=== PATIENT | female | born 1980 | race Hispanic/Latino ===

== ENCOUNTER 2017-03-19 17:12 | Observation (INO) | payer MEDICAID ==
[~2017-03-19] VITALS: Ht 147.3 cm; Wt 49.3 kg
[~2017-03-19 17:12] MED LIST: ALPR2TAB7 PO; AMYL1CAP PO; CIPR-245 PO; DOCU100C33 PO; DULO30CA2 PO; FERR-63 PO; FURO40TA5 PO; LEVE500T8 PO; NITR100C PO; OMEP20CA10 PO; POTA20TA12 PO; PREG25 PO; SPIR50TA3 PO; TOPI100T37 PO
[2017-03-19 17:41] LABS: APPEARANCE,URINE Turbid (CLEAR); BILIRUBIN,URINE Negative (NEGATIVE); COLOR,URINE Yellow (YELLOW); GLUCOSE, URINE (UA) Negative (NEGATIVE); KETONES,URINE Negative (NEGATIVE); LEUKOCYTE ESTERASE ,URINE Negative (NEGATIVE); NITRATE,URINE Negative (NEGATIVE); OCCULT BLOOD,URINE Negative (NEGATIVE); PH,URINE >=9.0 (5.0-8.0); PROTEIN,URINE Negative (NEGATIVE)
[2017-03-19 17:56] LABS: HCG,QUAL RESULT NEGATIVE (NEGATIVE)
[2017-03-19 18:03] LABS: AMPHET/METH SCREEN,URINE NEGATIVE (NEGATIVE); BARBITURATE SCREEN, URINE NEGATIVE (NEGATIVE); BENZODIAZEPINES SCREEN,URINE POSITIVE (NEGATIVE); CANNABINOID SCREEN,URINE NEGATIVE (NEGATIVE); COCAINE SCREEN,URINE NEGATIVE (NEGATIVE); OPIATE SCREEN,URINE NEGATIVE (NEGATIVE); PHENCYCLIDINE SCREEN,URINE NEGATIVE (NEGATIVE)
[2017-03-19 18:11] LABS: AMORPHOUS SEDIMENT,UR Moderate /LPF (None Seen); BACTERIA,URINE Few /HPF (None Seen); RBC,URINE None Seen /HPF (0-1); SQUAMOUS EPITHELIAL CELL,UR 0-2 /LPF (0-2)
[2017-03-19 18:12] LABS: BASOPHILS % (AUTO) 1.1 % (0.0-5.0); EOSINOPHILS % (AUTO) 1.1 % (0.0-8.0); HEMATOCRIT 32.1 % (36-48); LYMPHOCYTES % (AUTO) 25.5 % (21.0-51.0); MEAN CORPUSCULAR HEMOGLOBIN 25.6 pg (27.0-33.0); MEAN CORPUSCULAR VOLUME 79.9 fL (79-99); NEUTROPHILS % (AUTO) 65.3 % (40.0-77.0); PLATELET COUNT (AUTO) 342 K/uL (130-400); RED BLOOD CELL COUNT(AUTO) 4.01 MIL/uL (4.00-5.50); RED CELL DISTRIBUTION WIDTH 23.9 % (11.0-15.5); WHITE BLOOD COUNT (AUTO) 5.5 K/uL (4.8-10.8)
[2017-03-19 18:21] LABS: CREATININE 0.8 mg/dL (0.5-1.5); POTASSIUM 4.1 mmol/L (3.5-5.1)
[2017-03-19 18:26] LABS: ALBUMIN 3.7 g/dL (3.5-5.0); BILIRUBIN,TOTAL 0.3 mg/dL (0.2-1.0); TOTAL PROTEIN, SERUM 7.3 g/dL (6.0-8.3)
[2017-03-19] MEDS ORDERED: KETOROLAC TROMETHAMINE 30MG/ML ONE (19:45)
[2017-03-19] MEDS ORDERED: ONDANSETRON HCL 4 MG/2 ML VIAL ONE (19:45)
[2017-03-19 20:51] VITALS: BP 134/97
[2017-03-19] MEDS ORDERED: MORPHINE SULFATE 4 MG/1ML SYG ONE (22:59)
[2017-03-19] MEDS: SODIUM CHLORIDE 0.9% 1000ML 1,000 ML IV SCH (23:09)
[2017-03-19] MEDS ORDERED: POTASSIUM CHLORIDE 20 MEQ ERTAB PO PRN (23:15)
[2017-03-19] MEDS ORDERED: POTASSIUM CHLORIDE 10% ELIXIR 20 MEQ/15 ML UDCUP PO PRN (23:15)
[2017-03-19] MEDS ORDERED: PHARMACY COMMUNICATION MISC SCH (23:15)
[2017-03-19] MEDS ORDERED: ONDANSETRON HCL 4 MG/2 ML VIAL IV PRN (23:15)
[2017-03-19] MEDS ORDERED: MORPHINE SULFATE 4 MG/1ML SYG IV PRN (23:15)
[2017-03-19] MEDS ORDERED: POTASSIUM CHLORIDE 20MEQ/100ML 100 ML IV PRN (23:15)
[2017-03-19] MEDS ORDERED: LIDOCAINE HCL-MPF 1% 2ML VIAL IVP PRN (23:15)
[2017-03-19] MEDS ORDERED: HYDRALAZINE HCL 20 MG/ML VIAL IV PRN (23:15)
[2017-03-19] MEDS ORDERED: SODIUM CHLORIDE 0.9% 1000ML 1,000 ML IV ONE (23:18)
[2017-03-19 23:23] VITALS: BP 149/98
[2017-03-20] MEDS ORDERED: PROMETHAZINE HCL 25 MG/ML 1ML AMPULE IM ONE (02:14)
[2017-03-20] MEDS: PROMETHAZINE HCL 25 MG/ML 1ML AMPULE IM SCH (02:20)
[2017-03-20] MEDS: KETOROLAC TROMETHAMINE 30MG/ML IV PRN (02:21)
[2017-03-20 03:40] VITALS: BP 128/93
[2017-03-20] MEDS: MORPHINE SULFATE 4 MG/1ML SYG IV PRN ×5 (05:01→22:55)
[2017-03-20 06:38] LABS: CREATININE 0.8 mg/dL (0.5-1.5); POTASSIUM 3.8 mmol/L (3.5-5.1)
[2017-03-20] MEDS ORDERED: COMPOUND IV MISC 1 EACH IVSOLN MISC PRN (07:30)
[2017-03-20 08:00] VITALS: BP 123/83
[2017-03-20] MEDS: FAMOTIDINE/PF 20 MG/2 ML VIAL IV SCH ×2 (08:28→20:27)
[2017-03-20] MEDS: SODIUM CHLORIDE 0.9% 1000ML 1,000 ML IV SCH ×2 (08:35→19:09)
[2017-03-20 12:00] VITALS: BP 124/84
[2017-03-20] MEDS: LEVETIRACETAM 200 MG in SODIUM CHLORIDE 0.9% 100 ML IV SCH ×2 (12:22→20:26)
[2017-03-20] MEDS ORDERED: DOCUSATE SODIUM 100 MG CAP PO PRN (12:30)
[2017-03-20 16:00] VITALS: BP 118/86
[2017-03-20] MEDS: FERROUS SULFATE 325 MG TABLET.DR PO SCH (16:39)
[2017-03-20] MEDS ORDERED: PNEUMOCOCCAL VACCINE POLYVALENT 0.5 ML/VIAL [PPV] IM ONE (18:15)
[2017-03-20 19:00] VITALS: BP 126/91
[2017-03-20] MEDS: ALPRAZOLAM 1 MG TAB PO SCH (20:27)
[2017-03-20] MEDS ORDERED: TOPIRAMATE 100 MG TAB PO SCH (21:00)
[2017-03-20] MEDS ORDERED: ALPRAZOLAM 1 MG TAB PO SCH (21:00)
[2017-03-20] MEDS ORDERED: LEVETIRACETAM 500 MG TABLET PO SCH (21:00)
[2017-03-20 23:00] VITALS: BP 102/70
[2017-03-21] MEDS: PROMETHAZINE HCL 25 MG/ML 1ML AMPULE IM SCH (01:30)
[2017-03-21] MEDS: MORPHINE SULFATE 4 MG/1ML SYG IV PRN ×2 (02:49→08:44)
[2017-03-21 03:00] VITALS: BP 98/57
[2017-03-21 05:40] VITALS: BP 87/63
[2017-03-21] MEDS: SODIUM CHLORIDE 0.9% 1000ML 1,000 ML IV SCH ×2 (06:11→08:44)
[2017-03-21] MEDS: KETOROLAC TROMETHAMINE 30MG/ML IV PRN (06:14)
[2017-03-21 07:00] VITALS: BP 92/69
[2017-03-21] MEDS ORDERED: PANTOPRAZOLE SODIUM 40 MG TABLET.DR PO SCH (07:30)
[2017-03-21] MEDS: FERROUS SULFATE 325 MG TABLET.DR PO SCH (08:43)
[2017-03-21] MEDS: FAMOTIDINE/PF 20 MG/2 ML VIAL IV SCH (08:43)
[2017-03-21] MEDS: ALPRAZOLAM 1 MG TAB PO SCH (08:44)
[2017-03-21] MEDS ORDERED: AMYLASE PO SCH (09:00)
[2017-03-21] MEDS ORDERED: FUROSEMIDE 40 MG TABLET PO SCH (09:00)
[2017-03-21] MEDS ORDERED: POTASSIUM CHLORIDE 20 MEQ ERTAB PO SCH (09:00)
[2017-03-21] MEDS ORDERED: PROTEASE PO SCH (09:00)
[2017-03-21] MEDS ORDERED: LIPASE PO SCH (09:00)
[2017-03-21] MEDS: LEVETIRACETAM 200 MG in SODIUM CHLORIDE 0.9% 100 ML IV SCH (09:07)
[2017-03-21 10:52] VITALS: BP 99/64
[2017-03-21] MEDS ORDERED: MORPHINE SULFATE 2 MG/ML 1ML SYG IVP PRN (11:30)
== END 2017-03-21 14:20 | disposition home or self-care (01) ==
LOC: EDH 17:12 → 3CH 17:13
PROVIDERS: ADMIT Family Medicine; ATTEND Family Medicine
DX: K85.90 Acute pancreatitis without necrosis or infection, unspecified (principal); K86.1 Other chronic pancreatitis; G89.4 Chronic pain syndrome; G40.909 Epilepsy, unspecified, not intractable, without status epilepticus; Q05.9 Spina bifida, unspecified; N31.9 Neuromuscular dysfunction of bladder, unspecified; Z88.0 Allergy status to penicillin; Z88.8 Allergy status to other drugs, medicaments and biological substances
CPT/HCPCS: 36415 ×2; 80048; 80053; 80177; 80305; 81001; 81025; 82150 ×2; 83690 ×2; 85025; 87046; 87205; 87324; 96361 ×2; 96372; 96374; 96375; 96376 ×2; 99285; G0378 ×45; J1885 ×3; J1953 ×2; J2270 ×8; J2405 ×2; J2550; J3490 ×3; J7030 ×4

== ENCOUNTER 2017-05-08 23:04 | Emergency (ER) | payer MEDICAID ==
[2017-05-08] MEDS ORDERED: SODIUM CHLORIDE 0.9% 500ML 500 ML IV ONE (23:56)
[2017-05-08] MEDS ORDERED: ONDANSETRON HCL 4 MG/2 ML VIAL ONE (23:56)
[2017-05-08] MEDS ORDERED: IOPAMIDOL-370 75 ML VIAL IV ONE (23:59)
[2017-05-09 00:05] LABS: EOSINOPHILS % (AUTO) 4.2 % (0.0-8.0); HEMATOCRIT 29.5 % (36-48); LYMPHOCYTES % (AUTO) 30.2 % (21.0-51.0); MEAN CORPUSCULAR HEMOGLOBIN 26.4 pg (27.0-33.0); MEAN CORPUSCULAR HGB CONC 32.6 g/dL (32.0-36.0); MEAN CORPUSCULAR VOLUME 81.1 fL (79-99); MONOCYTES % (AUTO) 7.7 % (3.0-13.0); NEUTROPHILS % (AUTO) 56.9 % (40.0-77.0); PLATELET COUNT (AUTO) 235 K/uL (130-400); RED BLOOD CELL COUNT(AUTO) 3.63 MIL/uL (4.00-5.50); RED CELL DISTRIBUTION WIDTH 17.8 % (11.0-15.5); WHITE BLOOD COUNT (AUTO) 6.4 K/uL (4.8-10.8)
[2017-05-09 00:16] LABS: APPEARANCE,URINE Clear (CLEAR); BILIRUBIN,URINE Negative (NEGATIVE); COLOR,URINE Yellow (YELLOW); GLUCOSE, URINE (UA) Negative (NEGATIVE); KETONES,URINE Negative (NEGATIVE); LEUKOCYTE ESTERASE ,URINE Large (NEGATIVE); NITRATE,URINE Negative (NEGATIVE); OCCULT BLOOD,URINE Negative (NEGATIVE); PH,URINE >=9.0 (5.0-8.0); PROTEIN,URINE Negative (NEGATIVE); UROBILINOGEN,URINE 0.2 mg/dL (0.2-1.0)
[2017-05-09 00:23] LABS: CREATININE 0.7 mg/dL (0.5-1.5); POTASSIUM 3.8 mmol/L (3.5-5.1)
[2017-05-09 00:26] LABS: BACTERIA,URINE None Seen /HPF (None Seen); MUCUS,URINE Rare LPF (None Seen); RBC,URINE 0-1 /HPF (0-1); SQUAMOUS EPITHELIAL CELL,UR Rare /LPF (0-2)
[2017-05-09 00:27] LABS: ALBUMIN 3.4 g/dL (3.5-5.0); BILIRUBIN,DIRECT 0.1 mg/dL (0.0-0.3); BILIRUBIN,TOTAL 0.2 mg/dL (0.2-1.0); TOTAL PROTEIN, SERUM 6.6 g/dL (6.0-8.3)
[2017-05-09 00:35] LABS: INR 1.02 (0.85-1.15); PARTIAL THROMBOPLASTIN TIME 26.1 SEC (26.3-35.5); PROTHROMBIN TIME 10.7 SEC (9.6-11.6)
== END 2017-05-09 02:22 | disposition home or self-care (01) ==
LOC: EDH 23:04
DX: K94.23 Gastrostomy malfunction (principal); R79.1 Abnormal coagulation profile; Z88.6 Allergy status to analgesic agent
CPT/HCPCS: 36415; 74177; 80048; 80076; 81001; 82550; 83690; 84703; 85025; 85610; 85730; 96361; 96374; 99285; J2405; J7040; Q9967

== ENCOUNTER 2017-05-14 01:34 | Emergency (ER) | payer MEDICAID ==
[2017-05-14 02:11] LABS: APPEARANCE,URINE Cloudy (CLEAR); BILIRUBIN,URINE Negative (NEGATIVE); COLOR,URINE Yellow (YELLOW); GLUCOSE, URINE (UA) Negative (NEGATIVE); KETONES,URINE Negative (NEGATIVE); LEUKOCYTE ESTERASE ,URINE Trace (NEGATIVE); NITRATE,URINE Negative (NEGATIVE); OCCULT BLOOD,URINE Negative (NEGATIVE); PH,URINE >=9.0 (5.0-8.0); PROTEIN,URINE Negative (NEGATIVE); UROBILINOGEN,URINE 0.2 mg/dL (0.2-1.0)
[2017-05-14 02:17] LABS: AMORPHOUS SEDIMENT,UR Many /LPF (None Seen); BACTERIA,URINE Few /HPF (None Seen); MUCUS,URINE Many LPF (None Seen); SQUAMOUS EPITHELIAL CELL,UR Moderate /LPF (0-2)
[2017-05-14 02:42] LABS: BASOPHILS % (AUTO) 0.3 % (0.0-5.0); EOSINOPHILS % (AUTO) 3.4 % (0.0-8.0); HEMATOCRIT 27.3 % (36-48); LYMPHOCYTES % (AUTO) 25.6 % (21.0-51.0); MEAN CORPUSCULAR HEMOGLOBIN 25.3 pg (27.0-33.0); MEAN CORPUSCULAR HGB CONC 31.2 g/dL (32.0-36.0); MONOCYTES % (AUTO) 7.2 % (3.0-13.0); NEUTROPHILS % (AUTO) 63.5 % (40.0-77.0); PLATELET COUNT (AUTO) 240 K/uL (130-400); RED BLOOD CELL COUNT(AUTO) 3.37 MIL/uL (4.00-5.50); RED CELL DISTRIBUTION WIDTH 17.4 % (11.0-15.5); WHITE BLOOD COUNT (AUTO) 7.8 K/uL (4.8-10.8)
[2017-05-14 03:05] LABS: CREATININE 0.7 mg/dL (0.5-1.5); POTASSIUM 3.9 mmol/L (3.5-5.1)
[2017-05-14 03:08] LABS: TOTAL PROTEIN, SERUM 5.9 g/dL (6.0-8.3)
[2017-05-14 03:22] LABS: BILIRUBIN,TOTAL 0.1 mg/dL (0.2-1.0)
[2017-05-14] MEDS ORDERED: KETOROLAC TROMETHAMINE 60 MG/2 ML VIAL ONE (05:18)
[2017-05-14] MEDS ORDERED: ONDANSETRON 4 MG TABLET ONE (05:18)
[2017-05-14] MEDS ORDERED: ONDANSETRON ODT 4 MG TAB ONE (05:20)
== END 2017-05-14 06:05 | disposition home or self-care (01) ==
LOC: EDH 01:34
DX: R10.9 Unspecified abdominal pain (principal); Z88.6 Allergy status to analgesic agent; Z98.890 Other specified postprocedural states
CPT/HCPCS: 36415; 80053; 81001; 82150; 83690; 85025; 96372; 99284; J1885; Q0162

== ENCOUNTER 2017-05-16 22:44 | Emergency (ER) | payer MEDICAID ==
[2017-05-16 23:09] LABS: BILIRUBIN,URINE Negative (NEGATIVE); COLOR,URINE Yellow (YELLOW); GLUCOSE, URINE (UA) Negative (NEGATIVE); KETONES,URINE Negative (NEGATIVE); LEUKOCYTE ESTERASE ,URINE Small (NEGATIVE); NITRATE,URINE Negative (NEGATIVE); OCCULT BLOOD,URINE Negative (NEGATIVE); PH,URINE 8.5 (5.0-8.0); PROTEIN,URINE Negative (NEGATIVE); UROBILINOGEN,URINE 0.2 mg/dL (0.2-1.0)
[2017-05-16 23:11] LABS: APPEARANCE,URINE SLIGHTLY CLOUDY (CLEAR)
[2017-05-16 23:12] LABS: HCG,QUAL RESULT NEGATIVE (NEGATIVE)
[2017-05-16 23:24] LABS: BASOPHILS % (AUTO) 0.4 % (0.0-5.0); EOSINOPHILS % (AUTO) 4.3 % (0.0-8.0); LYMPHOCYTES % (AUTO) 25.8 % (21.0-51.0); MEAN CORPUSCULAR HEMOGLOBIN 26.9 pg (27.0-33.0); MEAN CORPUSCULAR HGB CONC 33.4 g/dL (32.0-36.0); MEAN CORPUSCULAR VOLUME 80.6 fL (79-99); MONOCYTES % (AUTO) 7.6 % (3.0-13.0); NEUTROPHILS % (AUTO) 61.9 % (40.0-77.0); PLATELET COUNT (AUTO) 283 K/uL (130-400); RED BLOOD CELL COUNT(AUTO) 3.48 MIL/uL (4.00-5.50); WHITE BLOOD COUNT (AUTO) 7.3 K/uL (4.8-10.8)
[2017-05-16 23:29] LABS: BACTERIA,URINE None Seen /HPF (None Seen); RBC,URINE None Seen /HPF (0-1); SQUAMOUS EPITHELIAL CELL,UR Rare /LPF (0-2); WBC,URINE 0-1 /HPF (0-1)
[2017-05-16 23:33] LABS: CREATININE 0.7 mg/dL (0.5-1.5); POTASSIUM 3.6 mmol/L (3.5-5.1)
[2017-05-16 23:37] LABS: ALBUMIN 3.4 g/dL (3.5-5.0); BILIRUBIN,TOTAL 0.1 mg/dL (0.2-1.0); TOTAL PROTEIN, SERUM 6.6 g/dL (6.0-8.3)
[2017-05-17] MEDS ORDERED: LIDOCAINE HCL 2% VISCOUS 15 ML UDCUP ONE (00:03)
[2017-05-17] MEDS ORDERED: PROMETHAZINE HCL 25 MG/ML 1ML AMPULE IM ONE (00:03)
[2017-05-17] MEDS ORDERED: MAGNESIUM HYDROXIDE 30 ML/UDCUP ONE (00:03)
[2017-05-17] MEDS ORDERED: MORPHINE SULFATE 4 MG/1ML SYG ONE (00:06)
== END 2017-05-17 01:06 | disposition home or self-care (01) ==
LOC: EDH 22:44
DX: K29.70 Gastritis, unspecified, without bleeding (principal); Z88.6 Allergy status to analgesic agent
CPT/HCPCS: 36415; 80053; 81001; 81025; 82150; 83690; 85025; 93005; 96372 ×2; 99285; J2270; J2550

== ENCOUNTER 2017-05-20 18:30 | Emergency (ER) | payer MEDICAID | END 2017-05-20 19:36 | disposition left against medical advice (07) | LOC: EDH 18:30 | DX: R11.2 Nausea with vomiting, unspecified (principal); R19.7 Diarrhea, unspecified; R10.9 Unspecified abdominal pain; I10 Essential (primary) hypertension; Z53.21 Procedure and treatment not carried out due to patient leaving prior to being seen by health care provider; Z88.6 Allergy status to analgesic agent; Z98.890 Other specified postprocedural states | CPT/HCPCS: 93005; 99281 ==

== ENCOUNTER 2017-05-28 02:31 | Emergency (ER) | payer MEDICAID ==
[2017-05-28] MEDS ORDERED: MAGNESIUM HYDROXIDE 30 ML/UDCUP ONE (03:45)
[2017-05-28] MEDS ORDERED: LIDOCAINE HCL 2% VISCOUS 15 ML UDCUP ONE (03:47)
[2017-05-28] MEDS ORDERED: ONDANSETRON ODT 4 MG TAB ONE (03:47)
[2017-05-28 05:16] LABS: BASOPHILS % (AUTO) 0.7 % (0.0-5.0); EOSINOPHILS % (AUTO) 3.4 % (0.0-8.0); HEMATOCRIT 31.9 % (36-48); MEAN CORPUSCULAR HEMOGLOBIN 26.4 pg (27.0-33.0); MEAN CORPUSCULAR HGB CONC 32.1 g/dL (32.0-36.0); MEAN CORPUSCULAR VOLUME 82.2 fL (79-99); MONOCYTES % (AUTO) 6.4 % (3.0-13.0); NEUTROPHILS % (AUTO) 64.5 % (40.0-77.0); PLATELET COUNT (AUTO) 294 K/uL (130-400); RED BLOOD CELL COUNT(AUTO) 3.88 MIL/uL (4.00-5.50); WHITE BLOOD COUNT (AUTO) 8.5 K/uL (4.8-10.8)
[2017-05-28 05:29] LABS: POTASSIUM 4.7 mmol/L (3.5-5.1)
[2017-05-28 05:33] LABS: ALBUMIN 4.2 g/dL (3.5-5.0); BILIRUBIN,TOTAL 0.3 mg/dL (0.2-1.0); TOTAL PROTEIN, SERUM 8.5 g/dL (6.0-8.3)
== END 2017-05-28 06:22 | disposition home or self-care (01) ==
LOC: EDH 02:31
DX: K94.23 Gastrostomy malfunction (principal); G89.29 Other chronic pain; R10.10 Upper abdominal pain, unspecified; I10 Essential (primary) hypertension; Q05.9 Spina bifida, unspecified; Z76.5 Malingerer [conscious simulation]; Z88.6 Allergy status to analgesic agent; Z98.890 Other specified postprocedural states
CPT/HCPCS: 36415; 80053; 83690; 85025

== ENCOUNTER 2017-05-31 03:58 | Emergency (ER) | payer MEDICAID ==
[2017-05-31 04:54] LABS: BASOPHILS % (AUTO) 0.4 % (0.0-5.0); EOSINOPHILS % (AUTO) 3.6 % (0.0-8.0); HEMATOCRIT 31.8 % (36-48); LYMPHOCYTES % (AUTO) 27.2 % (21.0-51.0); MEAN CORPUSCULAR HGB CONC 32.2 g/dL (32.0-36.0); MEAN CORPUSCULAR VOLUME 80.7 fL (79-99); MONOCYTES % (AUTO) 7.7 % (3.0-13.0); NEUTROPHILS % (AUTO) 61.1 % (40.0-77.0); PLATELET COUNT (AUTO) 359 K/uL (130-400); RED BLOOD CELL COUNT(AUTO) 3.93 MIL/uL (4.00-5.50); RED CELL DISTRIBUTION WIDTH 17.8 % (11.0-15.5); WHITE BLOOD COUNT (AUTO) 7.4 K/uL (4.8-10.8)
[2017-05-31 04:54] LABS: APPEARANCE,URINE Clear (CLEAR); BILIRUBIN,URINE Negative (NEGATIVE); COLOR,URINE Yellow (YELLOW); GLUCOSE, URINE (UA) Negative (NEGATIVE); KETONES,URINE Negative (NEGATIVE); LEUKOCYTE ESTERASE ,URINE Trace (NEGATIVE); NITRATE,URINE Negative (NEGATIVE); OCCULT BLOOD,URINE Negative (NEGATIVE); PROTEIN,URINE Negative (NEGATIVE); UROBILINOGEN,URINE 0.2 mg/dL (0.2-1.0)
[2017-05-31 04:59] LABS: HCG,QUAL RESULT NEGATIVE (NEGATIVE)
[2017-05-31 05:01] LABS: CREATININE 0.7 mg/dL (0.5-1.5); POTASSIUM 3.4 mmol/L (3.5-5.1)
[2017-05-31] MEDS ORDERED: KETOROLAC TROMETHAMINE 30MG/ML ONE (05:01)
[2017-05-31] MEDS ORDERED: PROMETHAZINE HCL 25 MG/ML 1ML AMPULE IM ONE (05:01)
[2017-05-31 05:02] LABS: AMPHET/METH SCREEN,URINE NEGATIVE (NEGATIVE); BARBITURATE SCREEN, URINE NEGATIVE (NEGATIVE); BENZODIAZEPINES SCREEN,URINE POSITIVE (NEGATIVE); CANNABINOID SCREEN,URINE NEGATIVE (NEGATIVE); COCAINE SCREEN,URINE NEGATIVE (NEGATIVE); OPIATE SCREEN,URINE NEGATIVE (NEGATIVE); PHENCYCLIDINE SCREEN,URINE NEGATIVE (NEGATIVE)
[2017-05-31 05:14] LABS: BACTERIA,URINE None Seen /HPF (None Seen); RBC,URINE None Seen /HPF (0-1); SQUAMOUS EPITHELIAL CELL,UR Few /LPF (0-2); WBC,URINE 0-1 /HPF (0-1)
[2017-05-31 05:22] LABS: ALBUMIN 3.8 g/dL (3.5-5.0); BILIRUBIN,TOTAL 0.2 mg/dL (0.2-1.0); TOTAL PROTEIN, SERUM 7.6 g/dL (6.0-8.3)
[2017-05-31] MEDS ORDERED: HYOSCYAMINE SULFATE 0.125 MG TAB.SUBL SL ONE ×2 (05:22→05:24)
[2017-05-31] MEDS ORDERED: FAMOTIDINE/PF 20 MG/2 ML VIAL IV ONE (05:22)
== END 2017-05-31 06:26 | disposition home or self-care (01) ==
LOC: EDH 03:58
DX: R10.13 Epigastric pain (principal); R11.2 Nausea with vomiting, unspecified; K86.1 Other chronic pancreatitis; I10 Essential (primary) hypertension; Z76.5 Malingerer [conscious simulation]; Z98.890 Other specified postprocedural states; Z88.6 Allergy status to analgesic agent
CPT/HCPCS: 36415; 80053; 80305; 81001; 81025; 83690; 85025; 96372; 96374; 96375; 99284; J1885; J2550; J3490

== ENCOUNTER 2017-06-04 05:05 | Emergency (ER) | payer MEDICAID ==
[2017-06-04] MEDS ORDERED: TETANUS/DIPHTHERIA TOXOID [ADULT] 0.5 ML VIAL IM ONE (05:21)
== END 2017-06-04 05:27 | disposition home or self-care (01) ==
LOC: EDH 05:05
DX: S51.852A Open bite of left forearm, initial encounter (principal); I10 Essential (primary) hypertension; Z88.6 Allergy status to analgesic agent; W54.0XXA Bitten by dog, initial encounter; Y93.89 Activity, other specified; Y92.89 Other specified places as the place of occurrence of the external cause; Y99.8 Other external cause status
CPT/HCPCS: 90471; 90714

== ENCOUNTER 2017-06-10 23:51 | Emergency (ER) | payer MEDICAID ==
[2017-06-11] MEDS ORDERED: ONDANSETRON HCL MDV 20ML 2 MG/ML VIAL ONE (00:26)
[2017-06-11] MEDS ORDERED: MEPERIDINE-PF 25 MG/ML SYG ONE ×2 (00:26→02:04)
[2017-06-11 01:01] LABS: BASOPHILS % (AUTO) 0.4 % (0.0-5.0); EOSINOPHILS % (AUTO) 3.4 % (0.0-8.0); HEMATOCRIT 30.5 % (36-48); LYMPHOCYTES % (AUTO) 20.8 % (21.0-51.0); MEAN CORPUSCULAR HEMOGLOBIN 25.9 pg (27.0-33.0); MEAN CORPUSCULAR HGB CONC 31.4 g/dL (32.0-36.0); MEAN CORPUSCULAR VOLUME 82.6 fL (79-99); MONOCYTES % (AUTO) 6.6 % (3.0-13.0); NEUTROPHILS % (AUTO) 68.8 % (40.0-77.0); NUCLEATED RED BLOOD CELLS 0.2 % (0.0-0.19); PLATELET COUNT (AUTO) 234 K/uL (130-400); RED CELL DISTRIBUTION WIDTH 17.5 % (11.0-15.5); WHITE BLOOD COUNT (AUTO) 8.2 K/uL (4.8-10.8)
[2017-06-11 01:09] LABS: CREATININE 0.6 mg/dL (0.5-1.5); POTASSIUM 3.5 mmol/L (3.5-5.1)
[2017-06-11 01:11] LABS: BILIRUBIN,URINE Negative (NEGATIVE); COLOR,URINE Yellow (YELLOW); GLUCOSE, URINE (UA) Negative (NEGATIVE); KETONES,URINE Negative (NEGATIVE); LEUKOCYTE ESTERASE ,URINE Trace (NEGATIVE); NITRATE,URINE Negative (NEGATIVE); OCCULT BLOOD,URINE Small (NEGATIVE); PROTEIN,URINE Negative (NEGATIVE); UROBILINOGEN,URINE 0.2 mg/dL (0.2-1.0)
[2017-06-11 01:12] LABS: APPEARANCE,URINE CLOUDY (CLEAR)
[2017-06-11 01:14] LABS: AMORPHOUS SEDIMENT,UR Many /LPF (None Seen); BACTERIA,URINE Rare /HPF (None Seen); MUCUS,URINE Many LPF (None Seen); RBC,URINE None Seen /HPF (0-1); RENAL EPITHELIAL CELLS,URINE Moderate /HPF (None Seen); SQUAMOUS EPITHELIAL CELL,UR Moderate /HPF (0-2); TRANSITIONAL EPI CELLS,URINE Many /HPF (None Seen)
[2017-06-11 01:24] LABS: ALBUMIN 3.5 g/dL (3.5-5.0); BILIRUBIN,TOTAL 0.2 mg/dL (0.2-1.0)
[2017-06-11] MEDS ORDERED: KETOROLAC TROMETHAMINE 15MG/ML ONE (02:04)
[2017-06-11] MEDS ORDERED: PROMETHAZINE HCL 25 MG/ML 1ML AMPULE IM ONE (03:10)
== END 2017-06-11 03:33 | disposition home or self-care (01) ==
LOC: EDH 23:51
DX: T85.898A Other specified complication of other internal prosthetic devices, implants and grafts, initial encounter (principal); R10.9 Unspecified abdominal pain; G89.29 Other chronic pain; R11.2 Nausea with vomiting, unspecified; R19.7 Diarrhea, unspecified; I10 Essential (primary) hypertension; Z93.4 Other artificial openings of gastrointestinal tract status; Z88.6 Allergy status to analgesic agent
CPT/HCPCS: 36415; 80053; 81001; 85025; 96374; 96375; 96376; 99284; J1885; J2175 ×2; J2550

== ENCOUNTER 2017-06-13 11:24 | Emergency (ER) | payer MEDICAID ==
[2017-06-13] MEDS ORDERED: DIATR MEGLU/DIATRIZOATE SODIUM 30 ML BOTTLE ONE (12:33)
[2017-06-13] MEDS ORDERED: ONDANSETRON ODT 4 MG TAB ONE (12:50)
[2017-06-13 12:59] LABS: APPEARANCE,URINE CLOUDY (CLEAR); BILIRUBIN,URINE NEGATIVE (NEGATIVE); COLOR,URINE YELLOW (YELLOW); GLUCOSE, URINE (UA) NEGATIVE (NEGATIVE); KETONES,URINE NEGATIVE (NEGATIVE); LEUKOCYTE ESTERASE ,URINE NEGATIVE (NEGATIVE); NITRATE,URINE NEGATIVE (NEGATIVE); OCCULT BLOOD,URINE TRACE-INTACT (NEGATIVE); PROTEIN,URINE NEGATIVE (NEGATIVE); UROBILINOGEN,URINE 0.2 mg/dL (0.2-1.0)
[2017-06-13 13:20] LABS: BACTERIA,URINE Rare /HPF (None Seen); MUCUS,URINE Rare LPF (None Seen); SQUAMOUS EPITHELIAL CELL,UR Few /HPF (0-2)
== END 2017-06-13 13:28 | disposition home or self-care (01) ==
LOC: EDH 11:24
DX: R11.0 Nausea (principal); R10.9 Unspecified abdominal pain; I10 Essential (primary) hypertension; Z88.6 Allergy status to analgesic agent
CPT/HCPCS: 74018; 81001; 99285; Q9963

== ENCOUNTER 2017-06-14 04:52 | Emergency (ER) | payer MEDICAID ==
[2017-06-14] MEDS ORDERED: SODIUM CHLORIDE 0.9% 1000ML 1,000 ML IV ONE (05:48)
[2017-06-14] MEDS ORDERED: KETOROLAC TROMETHAMINE 30MG/ML ONE (05:48)
[2017-06-14] MEDS ORDERED: PROMETHAZINE HCL 25 MG/ML 1ML AMPULE IM ONE (05:48)
[2017-06-14 05:53] LABS: CREATININE 0.7 mg/dL (0.5-1.5); POTASSIUM 4.2 mmol/L (3.5-5.1)
[2017-06-14 05:58] LABS: ALBUMIN 3.8 g/dL (3.5-5.0); BILIRUBIN,TOTAL 0.3 mg/dL (0.2-1.0); TOTAL PROTEIN, SERUM 7.3 g/dL (6.0-8.3)
[2017-06-14 06:04] LABS: BASOPHILS % (AUTO) 0.9 % (0.0-5.0); EOSINOPHILS % (AUTO) 2.7 % (0.0-8.0); HEMATOCRIT 31.7 % (36-48); LYMPHOCYTES % (AUTO) 28.3 % (21.0-51.0); MEAN CORPUSCULAR HEMOGLOBIN 25.6 pg (27.0-33.0); MEAN CORPUSCULAR HGB CONC 31.4 g/dL (32.0-36.0); MEAN CORPUSCULAR VOLUME 81.5 fL (79-99); MONOCYTES % (AUTO) 7.9 % (3.0-13.0); NEUTROPHILS % (AUTO) 60.2 % (40.0-77.0); NUCLEATED RED BLOOD CELLS 0.1 % (0.0-0.19); PLATELET COUNT (AUTO) 289 K/uL (130-400); RED BLOOD CELL COUNT(AUTO) 3.89 MIL/uL (4.00-5.50); RED CELL DISTRIBUTION WIDTH 17.8 % (11.0-15.5); WHITE BLOOD COUNT (AUTO) 7.3 K/uL (4.8-10.8)
[2017-06-14 06:09] LABS: APPEARANCE,URINE CLEAR (CLEAR); BILIRUBIN,URINE NEGATIVE (NEGATIVE); COLOR,URINE YELLOW (YELLOW); GLUCOSE, URINE (UA) NEGATIVE (NEGATIVE); KETONES,URINE NEGATIVE (NEGATIVE); LEUKOCYTE ESTERASE ,URINE SMALL (NEGATIVE); NITRATE,URINE POSITIVE (NEGATIVE); OCCULT BLOOD,URINE NEGATIVE (NEGATIVE); PROTEIN,URINE NEGATIVE (NEGATIVE); UROBILINOGEN,URINE 0.2 mg/dL (0.2-1.0)
[2017-06-14 06:10] LABS: HCG,QUAL RESULT NEGATIVE (NEGATIVE)
[2017-06-14] MEDS ORDERED: MORPHINE SULFATE 4 MG/1ML SYG ONE (06:14)
[2017-06-14 06:20] LABS: BACTERIA,URINE Few /HPF (None Seen); MUCUS,URINE Many LPF (None Seen); RBC,URINE None Seen /HPF (0-1); SQUAMOUS EPITHELIAL CELL,UR Few /HPF (0-2)
== END 2017-06-14 07:36 | disposition home or self-care (01) ==
LOC: EDH 04:52
DX: N39.0 Urinary tract infection, site not specified (principal); G89.29 Other chronic pain; R10.9 Unspecified abdominal pain; I10 Essential (primary) hypertension; Z88.6 Allergy status to analgesic agent
CPT/HCPCS: 36415; 80053; 81025; 83690; 85025; 96365; 96366; 99284; J1885; J2270; J2550; J7030

== ENCOUNTER 2017-06-20 01:43 | Emergency (ER) | payer MEDICAID ==
[2017-06-20] MEDS ORDERED: DIATR MEGLU/DIATRIZOATE SODIUM 30 ML BOTTLE ONE (02:12)
== END 2017-06-20 02:59 | disposition home or self-care (01) ==
LOC: EDH 01:43
DX: K94.23 Gastrostomy malfunction (principal); R11.2 Nausea with vomiting, unspecified; I10 Essential (primary) hypertension; Z88.6 Allergy status to analgesic agent
CPT/HCPCS: 74018; 99283; Q9963

== ENCOUNTER 2017-06-21 18:08 | Emergency (ER) | payer MEDICAID | END 2017-06-21 19:15 | disposition home or self-care (01) | LOC: EDH 18:08 | DX: K86.1 Other chronic pancreatitis (principal); I10 Essential (primary) hypertension; Z93.1 Gastrostomy status; Z88.6 Allergy status to analgesic agent | CPT/HCPCS: 99281 ==

== ENCOUNTER 2017-06-30 02:59 | Emergency (ER) | payer MEDICAID ==
[~2017-06-30 02:59] MED LIST changes: -SPIR50TA3 PO; +SPIR50TA5 PO
[2017-06-30] MEDS ORDERED: ONDANSETRON ODT 4 MG TAB ONE (05:40)
[2017-06-30] MEDS ORDERED: KETOROLAC TROMETHAMINE 30MG/ML ONE (05:40)
[2017-06-30] MEDS ORDERED: ISOVUE-300 100 ML VIAL IV ONE (11:45)
[2017-06-30] MEDS ORDERED: LIDOCAINE HCL 1% MDV 50ML VIAL ONE (11:45)
[2017-06-30] MEDS ORDERED: MINERAL OIL 25 ML OIL TP ONE (14:26)
== END 2017-06-30 15:07 | disposition home or self-care (01) ==
LOC: EDH 02:59
DX: T85.528A Displacement of other gastrointestinal prosthetic devices, implants and grafts, initial encounter (principal); I10 Essential (primary) hypertension; G89.29 Other chronic pain; R10.9 Unspecified abdominal pain; Q05.9 Spina bifida, unspecified; Z88.6 Allergy status to analgesic agent; Z98.890 Other specified postprocedural states
CPT/HCPCS: 49452; 71045; 74018; 81025; 96372; 99285; C1769 ×2; J1885; J3490; Q9967; 43761

== ENCOUNTER 2017-08-22 02:01 | Emergency (ER) | payer MEDICAID ==
[2017-08-22 02:47] LABS: BASOPHILS % (AUTO) 0.5 % (0.0-5.0); EOSINOPHILS % (AUTO) 3.8 % (0.0-8.0); HEMATOCRIT 34.7 % (36-48); LYMPHOCYTES % (AUTO) 23.5 % (21.0-51.0); MEAN CORPUSCULAR HEMOGLOBIN 28.5 pg (27.0-33.0); MEAN CORPUSCULAR HGB CONC 33.5 g/dL (32.0-36.0); MEAN CORPUSCULAR VOLUME 85.1 fL (79-99); MONOCYTES % (AUTO) 6.4 % (3.0-13.0); NEUTROPHILS % (AUTO) 65.8 % (40.0-77.0); PLATELET COUNT (AUTO) 336 K/uL (130-400); RED BLOOD CELL COUNT(AUTO) 4.07 MIL/uL (4.00-5.50); RED CELL DISTRIBUTION WIDTH 19.7 % (11.0-15.5); WHITE BLOOD COUNT (AUTO) 7.6 K/uL (4.8-10.8)
[2017-08-22] MEDS ORDERED: SODIUM CHLORIDE 0.9% 1000ML 1,000 ML IV ONE (02:49)
[2017-08-22] MEDS ORDERED: ONDANSETRON HCL 4 MG/2 ML VIAL ONE (02:49)
[2017-08-22] MEDS ORDERED: KETOROLAC TROMETHAMINE 30MG/ML ONE (02:59)
[2017-08-22 03:00] LABS: CREATININE 0.7 mg/dL (0.5-1.5); POTASSIUM 3.5 mmol/L (3.5-5.1)
[2017-08-22 03:06] LABS: ALBUMIN 3.6 g/dL (3.5-5.0); BILIRUBIN,TOTAL 0.2 mg/dL (0.2-1.0); TOTAL PROTEIN, SERUM 7.1 g/dL (6.0-8.3)
== END 2017-08-22 03:54 | disposition home or self-care (01) ==
LOC: EDH 02:01
DX: R10.9 Unspecified abdominal pain (principal); R11.2 Nausea with vomiting, unspecified; K85.90 Acute pancreatitis without necrosis or infection, unspecified; Z98.890 Other specified postprocedural states; Z88.6 Allergy status to analgesic agent
CPT/HCPCS: 36415; 80053; 83690; 85025; 96361; 96372; 96374; 99284; J1885; J2405; J7030

== ENCOUNTER 2017-09-26 08:53 | Emergency (ER) | payer MEDICAID ==
[2017-09-26 09:35] LABS: BASOPHILS % (AUTO) 0.5 % (0.0-5.0); HEMATOCRIT 35.5 % (36-48); LYMPHOCYTES % (AUTO) 25.8 % (21.0-51.0); MEAN CORPUSCULAR HEMOGLOBIN 27.8 pg (27.0-33.0); MEAN CORPUSCULAR HGB CONC 32.7 g/dL (32.0-36.0); MEAN CORPUSCULAR VOLUME 84.9 fL (79-99); MONOCYTES % (AUTO) 8.4 % (3.0-13.0); NEUTROPHILS % (AUTO) 62.3 % (40.0-77.0); PLATELET COUNT (AUTO) 389 K/uL (130-400); RED BLOOD CELL COUNT(AUTO) 4.18 MIL/uL (4.00-5.50); RED CELL DISTRIBUTION WIDTH 16.8 % (11.0-15.5); WHITE BLOOD COUNT (AUTO) 5.8 K/uL (4.8-10.8)
[2017-09-26] MEDS ORDERED: HALOPERIDOL LACTATE 5 MG/ML VIAL ONE (09:35)
[2017-09-26 09:41] LABS: CREATININE 1.1 mg/dL (0.5-1.5); POTASSIUM 4.2 mmol/L (3.5-5.1)
[2017-09-26 09:47] LABS: ALANINE AMINOTRANSFERASE 13 U/L (12-78); ALBUMIN 3.7 g/dL (3.5-5.0); ASPARTATE AMINOTRANSFERASE 10 U/L (10-37); BILIRUBIN,DIRECT < 0.1 mg/dL (0.0-0.3); BILIRUBIN,TOTAL 0.1 mg/dL (0.2-1.0); LIPASE 329 U/L (114-286)
[2017-09-26 09:57] LABS: APPEARANCE,URINE Turbid (CLEAR); BILIRUBIN,URINE Negative (NEGATIVE); COLOR,URINE Yellow (YELLOW); GLUCOSE, URINE (UA) Negative (NEGATIVE); KETONES,URINE Negative (NEGATIVE); LEUKOCYTE ESTERASE ,URINE Small (NEGATIVE); NITRATE,URINE Negative (NEGATIVE); OCCULT BLOOD,URINE Negative (NEGATIVE); PH,URINE 6.5 (5.0-8.0); PROTEIN,URINE Negative (NEGATIVE); UROBILINOGEN,URINE 0.2 mg/dL (0.2-1.0)
[2017-09-26 10:04] LABS: HCG,QUAL RESULT NEGATIVE (NEGATIVE)
[2017-09-26 10:09] LABS: BACTERIA,URINE Many /HPF (None Seen); SQUAMOUS EPITHELIAL CELL,UR Rare /HPF (0-2)
[2017-09-26] MEDS ORDERED: SODIUM CHLORIDE 0.9% 1000ML 2,000 ML IV ONE (10:58)
[2017-09-26] MEDS ORDERED: KETOROLAC TROMETHAMINE 15MG/ML ONE (10:58)
[2017-09-26 11:17] LABS: ABG BASE EXCESS -8.8 mmol/L (-2.0-3.0); ABG OXYGEN SATURATION 97.8 % (95.0-99.0); ABG PCO2 27 mmHg (32-45)
== END 2017-09-26 12:13 | disposition home or self-care (01) ==
LOC: EDH 08:53
DX: N39.0 Urinary tract infection, site not specified (principal); G89.29 Other chronic pain; R10.9 Unspecified abdominal pain; R11.2 Nausea with vomiting, unspecified; R19.7 Diarrhea, unspecified; I10 Essential (primary) hypertension; Z88.8 Allergy status to other drugs, medicaments and biological substances
CPT/HCPCS: 36415; 36600; 80048; 80076; 81001; 81025; 82803; 83690; 85025; 93005; 96361; 96372; 96374; 99285; J1630; J1885; J7030

== ENCOUNTER 2018-01-31 06:52 | Inpatient (IN) | payer MEDICAID ==
[~2018-01-31] VITALS: Ht 147.3 cm; Wt 61.2 kg
[2018-01-31] MEDS ORDERED: SODIUM CHLORIDE 0.9% 1000ML 1,000 ML IV ONE (07:27)
[2018-01-31] MEDS ORDERED: MEROPENEM 1 GM VIAL ONE (07:27)
[2018-01-31 08:58] LABS: BASOPHILS % (AUTO) 0.2 % (0.0-5.0); EOSINOPHILS % (AUTO) 0.2 % (0.0-8.0); HEMATOCRIT 30.4 % (36-48); MEAN CORPUSCULAR HEMOGLOBIN 27.6 pg (27.0-33.0); MEAN CORPUSCULAR VOLUME 86.2 fL (79-99); MONOCYTES % (AUTO) 4.8 % (3.0-13.0); NEUTROPHILS % (AUTO) 90.8 % (40.0-77.0); PLATELET COUNT (AUTO) 252 K/uL (130-400); RED BLOOD CELL COUNT(AUTO) 3.52 MIL/uL (4.00-5.50); RED CELL DISTRIBUTION WIDTH 16.3 % (11.0-15.5); WHITE BLOOD COUNT (AUTO) 12.4 K/uL (4.8-10.8)
[2018-01-31 09:08] LABS: CARBON DIOXIDE 19 mmol/L (21-32); CHLORIDE 107 mmol/L (101-111); CREATININE 0.9 mg/dL (0.5-1.5); GLOMERULAR FILTR. RATE CALC 74 mL/min (>60); GLUCOSE,RANDOM 107 mg/dL (70-105); POTASSIUM 3.1 mmol/L (3.5-5.1); SODIUM SERUM 141 mmol/L (136-145); UREA NITROGEN, BLOOD 4 mg/dL (7-18)
[2018-01-31 09:16] LABS: INR 0.96 (0.85-1.15); PARTIAL THROMBOPLASTIN TIME 30.1 SEC (26.3-35.5); PROTHROMBIN TIME 10.1 SEC (9.6-11.6)
[2018-01-31 09:19] LABS: ALANINE AMINOTRANSFERASE 17 U/L (12-78); ALBUMIN 3.3 g/dL (3.5-5.0); ASPARTATE AMINOTRANSFERASE 17 U/L (10-37); BILIRUBIN,TOTAL 0.2 mg/dL (0.2-1.0); CREATINE KINASE, TOTAL 268 U/L (21-232); MYOGLOBIN 36 ng/mL (10-92); TOTAL PROTEIN, SERUM 6.9 g/dL (6.0-8.3); TROPONIN I < 0.04 ng/mL (0.00-0.06)
[2018-01-31 09:57] LABS: APPEARANCE,URINE Cloudy (CLEAR); BILIRUBIN,URINE Negative (NEGATIVE); COLOR,URINE Dark Yellow (YELLOW); GLUCOSE, URINE (UA) Negative (NEGATIVE); KETONES,URINE Negative (NEGATIVE); LEUKOCYTE ESTERASE ,URINE Large (NEGATIVE); NITRATE,URINE Negative (NEGATIVE); OCCULT BLOOD,URINE Negative (NEGATIVE); PH,URINE 6.5 (5.0-8.0); PROTEIN,URINE Negative (NEGATIVE); UROBILINOGEN,URINE 0.2 mg/dL (0.2-1.0)
[2018-01-31 10:00] LABS: RBC,URINE 0-1 /HPF (0-1)
[2018-01-31 10:01] LABS: BACTERIA,URINE Many /HPF (None Seen); SQUAMOUS EPITHELIAL CELL,UR Few /HPF (0-2); WBC,URINE 51-100 /HPF (0-1)
[2018-01-31] MEDS ORDERED: ACETAMINOPHEN EXTRA STRENGTH 500 MG TABLET ONE (10:06)
[2018-01-31] MEDS ORDERED: ONDANSETRON HCL 4 MG/2 ML VIAL IVP PRN (14:00)
[2018-01-31 16:00] VITALS: BP 100/67
[2018-01-31 19:00] VITALS: BP 123/79
[2018-01-31] MEDS ORDERED: SODIUM CHLORIDE 0.9% 1000ML 1,000 ML IV SCH (19:31)
[2018-01-31] MEDS ORDERED: HYDRALAZINE HCL 20 MG/ML VIAL IV PRN (19:45)
[2018-01-31] MEDS ORDERED: ONDANSETRON HCL 4 MG/2 ML VIAL IV PRN (19:45)
[2018-01-31] MEDS ORDERED: ACETAMINOPHEN 325 MG TAB PO PRN (19:45)
[2018-01-31] MEDS ORDERED: LACTULOSE 20 GM/30 ML UDCUP PO PRN (19:45)
[2018-01-31] MEDS ORDERED: VANCOMYCIN PROTOCOL PER PHARMACY IV SCH (20:15)
[2018-01-31] MEDS ORDERED: COMPOUND IV REFRIGERATED 1 EACH IVSOLN MISC PRN (21:15)
[2018-01-31] MEDS: SODIUM CHLORIDE 0.9% 1000ML 1,000 ML IV SCH (21:19)
[2018-01-31] MEDS: METRONIDAZOLE 500 MG TABLET PO SCH (21:19)
[2018-01-31] MEDS: ACETAMINOPHEN 325 MG TAB PO PRN (21:20)
[2018-01-31] MEDS: MEROPENEM 500 MG VIAL IV SCH (21:21)
[2018-01-31] MEDS ORDERED: VANCOMYCIN 1.5 GM in SODIUM CHLORIDE 0.9% 250 ML IV ONE (21:30)
[2018-01-31 23:00] VITALS: BP 114/76
[2018-02-01 03:00] VITALS: BP 108/58
[2018-02-01] MEDS: MEROPENEM 500 MG VIAL IV SCH ×3 (04:45→20:59)
[2018-02-01] MEDS: METRONIDAZOLE 500 MG TABLET PO SCH ×3 (04:45→20:59)
[2018-02-01 08:00] VITALS: BP 103/64
[2018-02-01] MEDS ORDERED: POTASSIUM CHLORIDE 10% ELIXIR 20 MEQ/15 ML UDCUP PO PRN (08:00)
[2018-02-01] MEDS ORDERED: LIDOCAINE HCL-MPF 1% 2ML VIAL IVP PRN (08:00)
[2018-02-01] MEDS ORDERED: POTASSIUM CHLORIDE 10MEQ/100ML 100 ML IV PRN (08:00)
[2018-02-01] MEDS: KETOROLAC TROMETHAMINE 15MG/ML IV PRN ×3 (10:08→23:26)
[2018-02-01] MEDS: PANTOPRAZOLE SODIUM 40 MG TABLET.DR PO SCH (10:08)
[2018-02-01] MEDS: VANCOMYCIN 1GM+NS 250ML 250 ML IV SCH ×2 (10:08→21:00)
[2018-02-01] MEDS: ENOXAPARIN SODIUM 40 MG/0.4 ML SYRINGE SQ SCH (10:12)
[2018-02-01 11:00] VITALS: BP 99/67
[2018-02-01 15:33] LABS: CREATININE 0.7 mg/dL (0.5-1.5); POTASSIUM 3.1 mmol/L (3.5-5.1)
[2018-02-01 15:43] LABS: BASOPHILS % (AUTO) 0.4 % (0.0-5.0); EOSINOPHILS % (AUTO) 2.4 % (0.0-8.0); HEMATOCRIT 31.9 % (36-48); LYMPHOCYTES % (AUTO) 9.4 % (21.0-51.0); MEAN CORPUSCULAR HGB CONC 32.7 g/dL (32.0-36.0); MEAN CORPUSCULAR VOLUME 85.4 fL (79-99); MONOCYTES % (AUTO) 3.8 % (3.0-13.0); NUCLEATED RED BLOOD CELLS 0.2 % (0.0-0.19); PLATELET COUNT (AUTO) 231 K/uL (130-400); RED BLOOD CELL COUNT(AUTO) 3.73 MIL/uL (4.00-5.50); RED CELL DISTRIBUTION WIDTH 16.6 % (11.0-15.5); WHITE BLOOD COUNT (AUTO) 7.1 K/uL (4.8-10.8)
[2018-02-01 16:00] VITALS: BP 105/63
[2018-02-01 20:00] VITALS: BP 112/73
[2018-02-01 23:30] LABS: AMPHET/METH SCREEN,URINE NEGATIVE (NEGATIVE); BARBITURATE SCREEN, URINE NEGATIVE (NEGATIVE); BENZODIAZEPINES SCREEN,URINE POSITIVE (NEGATIVE); CANNABINOID SCREEN,URINE NEGATIVE (NEGATIVE); COCAINE SCREEN,URINE NEGATIVE (NEGATIVE); OPIATE SCREEN,URINE NEGATIVE (NEGATIVE); PHENCYCLIDINE SCREEN,URINE NEGATIVE (NEGATIVE)
[2018-02-02] VITALS: BP 116/76
[2018-02-02] MEDS ORDERED: PRAZ1CAP5 PO ×2 (01:54)
[2018-02-02] MEDS ORDERED: ONDA4TAB9 PO (01:54)
[2018-02-02] MEDS ORDERED: HYDR28CR51 TP (01:54)
[2018-02-02] MEDS ORDERED: CEFP100T9 PO (01:54)
[2018-02-02] MEDS ORDERED: CEPH500C2 PO (01:54)
[2018-02-02] MEDS ORDERED: PHEN-847 PO (01:54)
[2018-02-02] MEDS ORDERED: DOCU-282 PO (01:54)
[2018-02-02] MEDS ORDERED: MIRT15TA6 PO ×2 (01:54)
[2018-02-02] MEDS ORDERED: FAMO40TA7 PO (01:54)
[2018-02-02] MEDS ORDERED: OLAN20TA17 PO (01:54)
[2018-02-02 04:00] VITALS: BP 108/68
[2018-02-02] MEDS: SODIUM CHLORIDE 0.9% 1000ML 1,000 ML IV SCH (04:44)
[2018-02-02] MEDS: MEROPENEM 500 MG VIAL IV SCH ×2 (04:44→12:50)
[2018-02-02] MEDS: METRONIDAZOLE 500 MG TABLET PO SCH ×2 (04:44→12:50)
[2018-02-02 05:15] LABS: ALBUMIN 2.3 g/dL (3.5-5.0); BILIRUBIN,TOTAL 0.3 mg/dL (0.2-1.0); CREATININE 0.7 mg/dL (0.5-1.5); POTASSIUM 3.6 mmol/L (3.5-5.1); TOTAL PROTEIN, SERUM 5.4 g/dL (6.0-8.3)
[2018-02-02 05:22] LABS: MEAN CORPUSCULAR HEMOGLOBIN 27.2 pg (27.0-33.0); PLATELET COUNT (AUTO) 251 K/uL (130-400); RED BLOOD CELL COUNT(AUTO) 3.29 MIL/uL (4.00-5.50); RED CELL DISTRIBUTION WIDTH 16.2 % (11.0-15.5); WHITE BLOOD COUNT (AUTO) 5.7 K/uL (4.8-10.8)
[2018-02-02 05:48] LABS: BAND NEUTROPHILS % (MANUAL) 3 % (0-2); EOSINOPHILS % (MANUAL) 3 % (1-6); LYMPHOCYTES % (MANUAL) 31 % (22-44); MONOCYTES % (MANUAL) 9 % (2-9); SEGMENTED NEUTROPHILS % 54 % (40-70)
[2018-02-02 05:49] LABS: MAN.DIFF COMMENT-IMPRESSION MANUAL DIFFERENTIAL
[2018-02-02 07:30] VITALS: BP_SYST 105; BP_SYST 159; BP_DIAS 73; BP_DIAS 90
[2018-02-02] MEDS: VANCOMYCIN 1GM+NS 250ML 250 ML IV SCH (08:48)
[2018-02-02] MEDS: PANTOPRAZOLE SODIUM 40 MG TABLET.DR PO SCH (08:48)
[2018-02-02] MEDS: KETOROLAC TROMETHAMINE 15MG/ML IV PRN ×3 (08:49→21:38)
[2018-02-02] MEDS: ENOXAPARIN SODIUM 40 MG/0.4 ML SYRINGE SQ SCH (09:02)
[2018-02-02] MEDS ORDERED: COMPOUND IV REFRIGERATED 1 EACH IVSOLN MISC PRN (10:00)
[2018-02-02 11:00] VITALS: BP 104/67
[2018-02-02 16:00] VITALS: BP 112/70
[2018-02-02 20:00] VITALS: BP 122/80
[2018-02-02] MEDS ORDERED: VANCOMYCIN 750MG + NS 250 ML IV SCH ×2 (21:00)
[2018-02-02] MEDS: ALPRAZOLAM 1 MG TAB PO SCH (21:34)
[2018-02-02] MEDS: OLANZAPINE 5 MG TAB PO SCH (21:35)
[2018-02-02] MEDS: MIRTAZAPINE 15 MG TABLET PO SCH (21:35)
[2018-02-02] MEDS: TOPIRAMATE 100 MG TAB PO SCH (21:36)
[2018-02-03] VITALS: BP 101/63
[2018-02-03 04:00] VITALS: BP 105/69
[2018-02-03 07:30] VITALS: BP 114/68
[2018-02-03] MEDS: ALPRAZOLAM 1 MG TAB PO SCH ×2 (09:15→21:32)
[2018-02-03] MEDS: PANTOPRAZOLE SODIUM 40 MG TABLET.DR PO SCH (09:15)
[2018-02-03] MEDS: FAMOTIDINE 20MG TAB 20 MG TAB PO SCH (09:15)
[2018-02-03] MEDS: ENOXAPARIN SODIUM 40 MG/0.4 ML SYRINGE SQ SCH (09:16)
[2018-02-03 11:00] VITALS: BP 101/65
[2018-02-03] MEDS: POTASSIUM CHLORIDE 20 MEQ ERTAB PO PRN ×2 (12:51→14:44)
[2018-02-03] MEDS: LEVOFLOXACIN 750 MG TABLET PO SCH ×2 (12:51→13:30)
[2018-02-03] MEDS: KETOROLAC TROMETHAMINE 15MG/ML IV PRN ×2 (14:44→21:33)
[2018-02-03 16:00] VITALS: BP 122/80
[2018-02-03 20:00] VITALS: BP 132/88
[2018-02-03] MEDS: MIRTAZAPINE 15 MG TABLET PO SCH (21:32)
[2018-02-03] MEDS: TOPIRAMATE 100 MG TAB PO SCH (21:33)
[2018-02-03] MEDS: OLANZAPINE 5 MG TAB PO SCH (21:33)
[2018-02-04] VITALS: BP 132/80
[2018-02-04] MEDS: ACETAMINOPHEN 325 MG TAB PO PRN ×2 (01:16→08:35)
[2018-02-04] MEDS: KETOROLAC TROMETHAMINE 15MG/ML IV PRN (03:35)
[2018-02-04 04:00] VITALS: BP 106/72
[2018-02-04] MEDS: ALPRAZOLAM 1 MG TAB PO SCH (08:00)
[2018-02-04] MEDS: PANTOPRAZOLE SODIUM 40 MG TABLET.DR PO SCH (08:33)
[2018-02-04] MEDS: FAMOTIDINE 20MG TAB 20 MG TAB PO SCH (08:33)
[2018-02-04] MEDS: ENOXAPARIN SODIUM 40 MG/0.4 ML SYRINGE SQ SCH (08:34)
[2018-02-04 09:13] VITALS: BP 145/95
[2018-02-04 12:15] VITALS: BP 98/58
[2018-02-04] MEDS ORDERED: LEVO750T21 PO (15:18)
[2018-02-04 16:57] VITALS: BP 99/56
[2018-02-04] MEDS: LEVOFLOXACIN 750 MG TABLET PO SCH (17:30)
== END 2018-02-04 17:50 | disposition home or self-care (01) | DRG 720 ==
LOC: EDH 06:52 → EDHIP 06:53 → OBSVTOIN 06:53 → 3BH 16:10
PROVIDERS: ADMIT Internal Medicine; ATTEND Internal Medicine
DX: A41.50 Gram-negative sepsis, unspecified (principal); E43 Unspecified severe protein-calorie malnutrition; K86.1 Other chronic pancreatitis; N31.9 Neuromuscular dysfunction of bladder, unspecified; I80.3 Phlebitis and thrombophlebitis of lower extremities, unspecified; N39.0 Urinary tract infection, site not specified; G40.909 Epilepsy, unspecified, not intractable, without status epilepticus; Z68.28 Body mass index [BMI] 28.0-28.9, adult; E86.1 Hypovolemia; E87.6 Hypokalemia; G89.4 Chronic pain syndrome; Z80.49 Family history of malignant neoplasm of other genital organs; Z82.0 Family history of epilepsy and other diseases of the nervous system; Z82.3 Family history of stroke; Z82.49 Family history of ischemic heart disease and other diseases of the circulatory system; Z82.5 Family history of asthma and other chronic lower respiratory diseases; Z83.3 Family history of diabetes mellitus; Z87.440 Personal history of urinary (tract) infections; Z90.49 Acquired absence of other specified parts of digestive tract; Z98.2 Presence of cerebrospinal fluid drainage device; Q05.9 Spina bifida, unspecified
CPT/HCPCS: 36415; 70450; 71045; 72100; 74176; 80048; 80053; 80202; 80305; 80339; 81001; 82150; 82270; 82550; 83605; 83690; 83874; 84484; 85025; 85610; 85730; 86140; 87040; 87077; 87088; 87186; 93005; 97039; C1894; J1650; J1885; J2185; J3370; J7030

== ENCOUNTER 2018-04-28 23:45 | Emergency (ER) | payer MEDICAID ==
[~2018-04-28 23:45] MED LIST changes: -CIPR-245 PO; +DOCU-282 PO; -DOCU100C33 PO; -DULO30CA2 PO; +FAMO40TA7 PO; -FERR-63 PO; -FURO40TA5 PO; +HYDR28CR51 TP; -LEVE500T8 PO; +LEVO750T21 PO; +MIRT15TA6 PO; -NITR100C PO; +OLAN20TA17 PO; -OMEP20CA10 PO; +ONDA4TAB9 PO; +PHEN-847 PO; -POTA20TA12 PO; +PRAZ1CAP5 PO; -PREG25 PO
[2018-04-29 00:46] LABS: BILIRUBIN,URINE Negative (NEGATIVE); COLOR,URINE Yellow (YELLOW); GLUCOSE, URINE (UA) Negative (NEGATIVE); KETONES,URINE Negative (NEGATIVE); LEUKOCYTE ESTERASE ,URINE Trace (NEGATIVE); NITRATE,URINE Negative (NEGATIVE); OCCULT BLOOD,URINE Negative (NEGATIVE); PH,URINE 6.5 (5.0-8.0); PROTEIN,URINE Negative (NEGATIVE); UROBILINOGEN,URINE 0.2 mg/dL (0.2-1.0)
[2018-04-29 00:47] LABS: APPEARANCE,URINE CLOUDY (CLEAR)
[2018-04-29 00:49] LABS: BACTERIA,URINE Few /HPF (None Seen); MUCUS,URINE Many LPF (None Seen); RBC,URINE None Seen /HPF (0-1); SQUAMOUS EPITHELIAL CELL,UR Few /HPF (0-2)
[2018-04-29 01:03] LABS: BASOPHILS % (AUTO) 0.3 % (0.0-5.0); EOSINOPHILS % (AUTO) 4.4 % (0.0-8.0); HEMATOCRIT 30.7 % (36-48); LYMPHOCYTES % (AUTO) 20.5 % (21.0-51.0); MEAN CORPUSCULAR HEMOGLOBIN 25.9 pg (27.0-33.0); MEAN CORPUSCULAR HGB CONC 32.3 g/dL (32.0-36.0); MEAN CORPUSCULAR VOLUME 80.4 fL (79-99); MONOCYTES % (AUTO) 4.9 % (3.0-13.0); NEUTROPHILS % (AUTO) 69.9 % (40.0-77.0); NUCLEATED RED BLOOD CELLS 0.1 % (0.0-0.19); PLATELET COUNT (AUTO) 344 K/uL (130-400); RED BLOOD CELL COUNT(AUTO) 3.83 MIL/uL (4.00-5.50); RED CELL DISTRIBUTION WIDTH 16.4 % (11.0-15.5); WHITE BLOOD COUNT (AUTO) 7.4 K/uL (4.8-10.8)
[2018-04-29 01:14] LABS: CREATININE 0.9 mg/dL (0.5-1.5); POTASSIUM 3.5 mmol/L (3.5-5.1)
[2018-04-29 01:18] LABS: ALBUMIN 3.7 g/dL (3.5-5.0); BILIRUBIN,TOTAL 0.2 mg/dL (0.2-1.0); TOTAL PROTEIN, SERUM 6.8 g/dL (6.0-8.3)
[2018-04-29] MEDS ORDERED: MAG HYDROX/AL HYDROX/SIMETH ES 30 ML SUSP UDCUP ONE (01:41)
[2018-04-29] MEDS ORDERED: LIDOCAINE HCL 2% VISCOUS 15 ML UDCUP ONE (01:41)
[2018-04-29] MEDS ORDERED: SODIUM CHLORIDE 0.9% 1000ML 1,000 ML IV ONE (01:41)
[2018-04-29] MEDS ORDERED: PROMETHAZINE HCL 25 MG/ML 1ML AMPULE IM ONE (01:41)
[2018-04-29] MEDS ORDERED: ONDANSETRON HCL 4 MG/2 ML VIAL ONE (01:41)
[2018-04-29] MEDS ORDERED: FAMOTIDINE/PF 20 MG/2 ML VIAL IV ONE (01:42)
[2018-04-29] MEDS ORDERED: DiphenhydrAMINE HCL 50 MG/ML VIAL ONE (01:43)
== END 2018-04-29 04:16 | disposition home or self-care (01) ==
LOC: EDH 23:45
DX: E86.9 Volume depletion, unspecified (principal); R10.13 Epigastric pain; R19.7 Diarrhea, unspecified; I10 Essential (primary) hypertension; Z90.49 Acquired absence of other specified parts of digestive tract
CPT/HCPCS: 36415; 80053; 81001; 83605; 83690; 85025; 96361; 96374; 96375; 99283; J1200; J2405; J2550; J3490; J7030

== ENCOUNTER 2018-04-30 02:58 | Emergency (ER) | payer MEDICAID ==
[2018-04-30 04:26] LABS: EOSINOPHILS % (AUTO) 4.4 % (0.0-8.0); HEMATOCRIT 29.4 % (36-48); LYMPHOCYTES % (AUTO) 27.7 % (21.0-51.0); MEAN CORPUSCULAR HEMOGLOBIN 25.9 pg (27.0-33.0); MEAN CORPUSCULAR HGB CONC 32.1 g/dL (32.0-36.0); MEAN CORPUSCULAR VOLUME 80.5 fL (79-99); MONOCYTES % (AUTO) 6.2 % (3.0-13.0); NEUTROPHILS % (AUTO) 60.7 % (40.0-77.0); PLATELET COUNT (AUTO) 355 K/uL (130-400); RED BLOOD CELL COUNT(AUTO) 3.65 MIL/uL (4.00-5.50); RED CELL DISTRIBUTION WIDTH 16.7 % (11.0-15.5); WHITE BLOOD COUNT (AUTO) 5.9 K/uL (4.8-10.8)
[2018-04-30 04:31] LABS: CREATININE 0.9 mg/dL (0.5-1.5); POTASSIUM 3.7 mmol/L (3.5-5.1)
[2018-04-30 04:36] LABS: ALBUMIN 3.5 g/dL (3.5-5.0); BILIRUBIN,TOTAL 0.2 mg/dL (0.2-1.0); TOTAL PROTEIN, SERUM 6.9 g/dL (6.0-8.3)
[2018-04-30] MEDS ORDERED: FAMOTIDINE 20MG TAB 20 MG TAB ONE (05:54)
[2018-04-30] MEDS ORDERED: PROMETHAZINE HCL 25 MG/ML 1ML AMPULE IM ONE (05:54)
[2018-04-30] MEDS ORDERED: DICYCLOMINE HCL 20 MG TAB ONE (05:55)
[2018-04-30] MEDS ORDERED: ONDANSETRON ODT 4 MG TAB ONE (05:55)
[2018-04-30] MEDS ORDERED: PANTOPRAZOLE SODIUM 40 MG TABLET.DR PO ONE (05:55)
[2018-04-30] MEDS ORDERED: KETOROLAC TROMETHAMINE 30MG/ML ONE (06:15)
== END 2018-04-30 06:50 | disposition home or self-care (01) ==
LOC: EDH 02:58
DX: R10.11 Right upper quadrant pain (principal); R10.13 Epigastric pain; R19.7 Diarrhea, unspecified; I10 Essential (primary) hypertension; Z90.49 Acquired absence of other specified parts of digestive tract
CPT/HCPCS: 36415; 80053; 83605; 83690; 85025; 96372 ×2; 99284; J1885; J2550

== ENCOUNTER 2018-05-04 02:42 | Emergency (ER) | payer MEDICAID ==
[2018-05-04 03:38] LABS: BILIRUBIN,URINE Negative (NEGATIVE); COLOR,URINE Yellow (YELLOW); GLUCOSE, URINE (UA) Negative (NEGATIVE); KETONES,URINE Negative (NEGATIVE); LEUKOCYTE ESTERASE ,URINE Small (NEGATIVE); NITRATE,URINE Negative (NEGATIVE); OCCULT BLOOD,URINE Negative (NEGATIVE); PH,URINE 6.5 (5.0-8.0); PROTEIN,URINE Negative (NEGATIVE); UROBILINOGEN,URINE 0.2 mg/dL (0.2-1.0)
[2018-05-04 03:43] LABS: BASOPHILS % (AUTO) 0.3 % (0.0-5.0); EOSINOPHILS % (AUTO) 4.1 % (0.0-8.0); HEMATOCRIT 30.4 % (36-48); LYMPHOCYTES % (AUTO) 20.3 % (21.0-51.0); MEAN CORPUSCULAR HGB CONC 32.2 g/dL (32.0-36.0); MEAN CORPUSCULAR VOLUME 80.7 fL (79-99); MONOCYTES % (AUTO) 6.3 % (3.0-13.0); PLATELET COUNT (AUTO) 327 K/uL (130-400); RED BLOOD CELL COUNT(AUTO) 3.77 MIL/uL (4.00-5.50); RED CELL DISTRIBUTION WIDTH 17.1 % (11.0-15.5); WHITE BLOOD COUNT (AUTO) 7.5 K/uL (4.8-10.8)
[2018-05-04 03:46] LABS: AMPHET/METH SCREEN,URINE NEGATIVE (NEGATIVE); BARBITURATE SCREEN, URINE NEGATIVE (NEGATIVE); BENZODIAZEPINES SCREEN,URINE POSITIVE (NEGATIVE); CANNABINOID SCREEN,URINE NEGATIVE (NEGATIVE); COCAINE SCREEN,URINE NEGATIVE (NEGATIVE); CREATININE 0.9 mg/dL (0.5-1.5); OPIATE SCREEN,URINE POSITIVE (NEGATIVE); PHENCYCLIDINE SCREEN,URINE NEGATIVE (NEGATIVE); POTASSIUM 3.4 mmol/L (3.5-5.1)
[2018-05-04 03:51] LABS: ALBUMIN 3.4 g/dL (3.5-5.0); APPEARANCE,URINE CLOUDY (CLEAR); BILIRUBIN,TOTAL 0.2 mg/dL (0.2-1.0); TOTAL PROTEIN, SERUM 6.9 g/dL (6.0-8.3)
[2018-05-04] MEDS ORDERED: PROMETHAZINE HCL 25 MG/ML 1ML AMPULE IM ONE ×2 (03:51→03:57)
[2018-05-04] MEDS ORDERED: KETOROLAC TROMETHAMINE 30MG/ML ONE ×2 (03:55→03:56)
[2018-05-04 04:08] LABS: BACTERIA,URINE None Seen /HPF (None Seen); MUCUS,URINE Many LPF (None Seen); RBC,URINE None Seen /HPF (0-1); SQUAMOUS EPITHELIAL CELL,UR Few /HPF (0-2)
[2018-05-04] MEDS ORDERED: LIDOCAINE HCL 2% VISCOUS 15 ML UDCUP ONE (04:36)
[2018-05-04] MEDS ORDERED: MAGNESIUM HYDROXIDE 30 ML/UDCUP ONE (04:36)
== END 2018-05-04 04:45 | disposition home or self-care (01) ==
LOC: EDH 02:42
DX: G89.29 Other chronic pain (principal); R10.10 Upper abdominal pain, unspecified; Q05.9 Spina bifida, unspecified; R11.2 Nausea with vomiting, unspecified; R19.7 Diarrhea, unspecified; I10 Essential (primary) hypertension; Z76.5 Malingerer [conscious simulation]; Z90.49 Acquired absence of other specified parts of digestive tract
CPT/HCPCS: 36415; 80053; 80305; 81001; 81025; 83690; 85025; 96372 ×2; 99283; J1885 ×2; J2550 ×2

== ENCOUNTER 2018-08-20 05:04 | Emergency (ER) | payer MEDICAID ==
[~2018-08-20 05:04] MED LIST changes: +FAMO-135 PO; -FAMO40TA7 PO; +FERR-6 PO; +FOLI1TAB15 PO; -HYDR28CR51 TP; +LEVE250T2 PO; -LEVO750T21 PO; -PHEN-847 PO; -PRAZ1CAP5 PO; -SPIR50TA5 PO
== END 2018-08-20 06:02 | disposition home or self-care (01) ==
LOC: EDH 05:04
DX: G89.29 Other chronic pain (principal); R10.9 Unspecified abdominal pain; I10 Essential (primary) hypertension
CPT/HCPCS: 99281

== ENCOUNTER 2018-08-21 16:15 | Emergency (ER) | payer MEDICAID ==
[2018-08-21 16:45] LABS: HCG,QUAL RESULT NEGATIVE (NEGATIVE)
[2018-08-21 16:51] LABS: AMPHET/METH SCREEN,URINE NEGATIVE (NEGATIVE); BARBITURATE SCREEN, URINE NEGATIVE (NEGATIVE); BENZODIAZEPINES SCREEN,URINE POSITIVE (NEGATIVE); CANNABINOID SCREEN,URINE NEGATIVE (NEGATIVE); COCAINE SCREEN,URINE NEGATIVE (NEGATIVE); OPIATE SCREEN,URINE NEGATIVE (NEGATIVE); PHENCYCLIDINE SCREEN,URINE NEGATIVE (NEGATIVE)
[2018-08-21] MEDS ORDERED: KETOROLAC TROMETHAMINE 60 MG/2 ML VIAL ONE (16:59)
== END 2018-08-21 17:40 | disposition home or self-care (01) ==
LOC: EDH 16:15
DX: S29.011A Strain of muscle and tendon of front wall of thorax, initial encounter (principal); I10 Essential (primary) hypertension; Z98.890 Other specified postprocedural states; W18.39XA Other fall on same level, initial encounter; Y93.01 Activity, walking, marching and hiking; Y92.89 Other specified places as the place of occurrence of the external cause; Y99.8 Other external cause status
CPT/HCPCS: 71101; 80305; 81025; 96374; 99285; J1885

== ENCOUNTER 2018-11-19 09:34 | Inpatient (IN) | payer MEDICAID | END 2018-11-22 17:10 | disposition home or self-care (01) | LOC: EDH 09:34 → EDHIP 09:35 → 3AH 17:02 | DX: K85.90 Acute pancreatitis without necrosis or infection, unspecified (principal); N31.9 Neuromuscular dysfunction of bladder, unspecified; E86.0 Dehydration; E87.6 Hypokalemia; N39.0 Urinary tract infection, site not specified; K86.1 Other chronic pancreatitis; K59.00 Constipation, unspecified; Z74.01 Bed confinement status; R53.81 Other malaise; Z16.24 Resistance to multiple antibiotics; B96.1 Klebsiella pneumoniae [K. pneumoniae] as the cause of diseases classified elsewhere ==

== ENCOUNTER 2018-11-25 10:02 | Emergency (ER) | payer MEDICAID ==
[~2018-11-25 10:02] MED LIST changes: -OLAN20TA17 PO; +OLAN20TA35 PO; -ONDA4TAB9 PO
[2018-11-25] MEDS ORDERED: SODIUM CHLORIDE 0.9% 1000ML 1,000 ML IV ONE (10:22)
[2018-11-25 11:32] LABS: BASOPHILS % (AUTO) 0.6 % (0.0-5.0); EOSINOPHILS % (AUTO) 5.5 % (0.0-8.0); HEMATOCRIT 36.1 % (36-48); LYMPHOCYTES % (AUTO) 26.8 % (21.0-51.0); MEAN CORPUSCULAR HEMOGLOBIN 27.6 pg (27.0-33.0); MEAN CORPUSCULAR HGB CONC 32.6 g/dL (32.0-36.0); MEAN CORPUSCULAR VOLUME 84.9 fL (79-99); MONOCYTES % (AUTO) 7.7 % (3.0-13.0); NEUTROPHILS % (AUTO) 59.4 % (40.0-77.0); PLATELET COUNT (AUTO) 219 K/uL (130-400); RED BLOOD CELL COUNT(AUTO) 4.25 MIL/uL (4.00-5.50); RED CELL DISTRIBUTION WIDTH 20.4 % (11.0-15.5); WHITE BLOOD COUNT (AUTO) 4.4 K/uL (4.8-10.8)
[2018-11-25 11:46] LABS: CREATININE 0.9 mg/dL (0.5-1.5); POTASSIUM 3.9 mmol/L (3.5-5.1)
[2018-11-25 11:51] LABS: HCG,QUAL RESULT NEGATIVE (NEGATIVE)
[2018-11-25 12:08] LABS: AMPHET/METH SCREEN,URINE NEGATIVE (NEGATIVE); BARBITURATE SCREEN, URINE NEGATIVE (NEGATIVE); BENZODIAZEPINES SCREEN,URINE POSITIVE (NEGATIVE); CANNABINOID SCREEN,URINE NEGATIVE (NEGATIVE); COCAINE SCREEN,URINE NEGATIVE (NEGATIVE); OPIATE SCREEN,URINE NEGATIVE (NEGATIVE); PHENCYCLIDINE SCREEN,URINE NEGATIVE (NEGATIVE)
[2018-11-25] MEDS ORDERED: ACETAMINOPHEN 325 MG TAB ONE (12:57)
== END 2018-11-25 13:30 | disposition home or self-care (01) ==
LOC: EDH 10:02
DX: R42 Dizziness and giddiness (principal); R53.1 Weakness; I10 Essential (primary) hypertension; Z87.891 Personal history of nicotine dependence
CPT/HCPCS: 36415; 51702; 80048; 80305; 81025; 85025; 93005; 96360; 99285; J7030

== ENCOUNTER 2018-12-12 20:45 | Emergency (ER) | payer MEDICAID ==
[2018-12-12 21:34] LABS: APPEARANCE,URINE Turbid (CLEAR); BILIRUBIN,URINE Negative (NEGATIVE); COLOR,URINE Yellow (YELLOW); GLUCOSE, URINE (UA) Negative (NEGATIVE); KETONES,URINE Trace mg/dL (NEGATIVE); LEUKOCYTE ESTERASE ,URINE Trace (NEGATIVE); NITRATE,URINE Negative (NEGATIVE); OCCULT BLOOD,URINE Negative (NEGATIVE); PH,URINE 7.5 (5.0-8.0); PROTEIN,URINE Negative (NEGATIVE)
[2018-12-12] MEDS ORDERED: ONDANSETRON HCL 4 MG/2 ML VIAL ONE (21:36)
[2018-12-12] MEDS ORDERED: FAMOTIDINE/PF 20 MG/2 ML VIAL IV ONE (21:37)
[2018-12-12] MEDS ORDERED: SODIUM CHLORIDE 0.9% 1000ML 1,000 ML IV ONE (21:37)
[2018-12-12 22:04] LABS: BASOPHILS % (AUTO) 0.5 % (0.0-5.0); EOSINOPHILS % (AUTO) 0.9 % (0.0-8.0); HEMATOCRIT 35.9 % (36-48); MEAN CORPUSCULAR HEMOGLOBIN 27.8 pg (27.0-33.0); MEAN CORPUSCULAR HGB CONC 32.7 g/dL (32.0-36.0); MEAN CORPUSCULAR VOLUME 85.1 fL (79-99); MONOCYTES % (AUTO) 7.3 % (3.0-13.0); NEUTROPHILS % (AUTO) 66.3 % (40.0-77.0); PLATELET COUNT (AUTO) 399 K/uL (130-400); RED BLOOD CELL COUNT(AUTO) 4.22 MIL/uL (4.00-5.50); RED CELL DISTRIBUTION WIDTH 17.8 % (11.0-15.5); WHITE BLOOD COUNT (AUTO) 5.9 K/uL (4.8-10.8)
[2018-12-12 22:09] LABS: AMORPHOUS SEDIMENT,UR Few /LPF (None Seen); BACTERIA,URINE Moderate /HPF (None Seen); MUCUS,URINE Few LPF (None Seen)
[2018-12-12 22:20] LABS: INR 1.08 (0.85-1.15); PARTIAL THROMBOPLASTIN TIME 27.2 SEC (26.3-35.5); PROTHROMBIN TIME 11.3 SEC (9.6-11.6)
[2018-12-12 22:25] LABS: CREATININE 0.6 mg/dL (0.5-1.5); POTASSIUM 3.7 mmol/L (3.5-5.1)
[2018-12-12 22:31] LABS: ALBUMIN 4.2 g/dL (3.5-5.0); BILIRUBIN,TOTAL 0.4 mg/dL (0.2-1.0); TOTAL PROTEIN, SERUM 7.5 g/dL (6.0-8.3)
[2018-12-12] MEDS ORDERED: METOCLOPRAMIDE 10 MG/2 ML VIAL ONE (23:20)
== END 2018-12-13 00:28 | disposition home or self-care (01) ==
LOC: EDH 20:45
DX: R11.10 Vomiting, unspecified (principal); R10.84 Generalized abdominal pain; R19.7 Diarrhea, unspecified; I10 Essential (primary) hypertension; Z88.1 Allergy status to other antibiotic agents
CPT/HCPCS: 36415; 80053; 81001; 82550; 83605; 83690; 85025; 85610; 85730; 96361; 96374; 96375; 99285; J2405; J2765; J3490; J7030

== ENCOUNTER 2019-06-01 20:20 | Inpatient (IN) | payer MEDICAID ==
[~2019-06-01] VITALS: Ht 147.3 cm; Wt 54.4 kg
[2019-06-01 21:46] LABS: BASOPHILS % (AUTO) 0.3 % (0.0-5.0); EOSINOPHILS % (AUTO) 2.2 % (0.0-8.0); HEMATOCRIT 37.9 % (36-48); LYMPHOCYTES % (AUTO) 17.2 % (21.0-51.0); MEAN CORPUSCULAR HEMOGLOBIN 24.6 pg (27.0-33.0); MEAN CORPUSCULAR HGB CONC 30.1 g/dL (32.0-36.0); MEAN CORPUSCULAR VOLUME 81.9 fL (79-99); MONOCYTES % (AUTO) 4.8 % (3.0-13.0); NEUTROPHILS % (AUTO) 75.2 % (40.0-77.0); PLATELET COUNT (AUTO) 280 K/uL (130-400); RED BLOOD CELL COUNT(AUTO) 4.63 MIL/uL (4.00-5.50); RED CELL DISTRIBUTION WIDTH 16.9 % (11.0-15.5); WHITE BLOOD COUNT (AUTO) 6.9 K/uL (4.8-10.8)
[2019-06-01] MEDS ORDERED: IOHEXOL-350 75 ML VIAL IV ONE (21:46)
[2019-06-01 22:07] LABS: CREATININE 0.9 mg/dL (0.5-1.5); POTASSIUM 3.5 mmol/L (3.5-5.1)
[2019-06-01 22:12] LABS: BILIRUBIN,TOTAL 0.4 mg/dL (0.2-1.0); TOTAL PROTEIN, SERUM 8.1 g/dL (6.0-8.3)
[2019-06-01] MEDS ORDERED: ONDANSETRON HCL 4 MG/2 ML VIAL ONE (22:25)
[2019-06-01] MEDS ORDERED: SODIUM CHLORIDE 0.9% 1000ML 1,000 ML IV ONE (22:26)
[2019-06-01] MEDS ORDERED: MORPHINE SULFATE 4 MG/1ML SYG ONE (22:26)
[2019-06-01 22:40] LABS: APPEARANCE,URINE Clear (CLEAR); BILIRUBIN,URINE Negative (NEGATIVE); COLOR,URINE Dark Yellow (YELLOW); GLUCOSE, URINE (UA) Negative (NEGATIVE); KETONES,URINE Negative (NEGATIVE); LEUKOCYTE ESTERASE ,URINE Trace (NEGATIVE); NITRATE,URINE Negative (NEGATIVE); OCCULT BLOOD,URINE Negative (NEGATIVE); PH,URINE 6.5 (5.0-8.0); PROTEIN,URINE POS 1+ mg/dL (NEGATIVE); UROBILINOGEN,URINE 0.2 mg/dL (0.2-1.0)
[2019-06-01 22:43] LABS: RBC,URINE None Seen /HPF (0-1)
[2019-06-01 22:44] LABS: AMORPHOUS SEDIMENT,UR Moderate /LPF (None Seen); BACTERIA,URINE Few /HPF (None Seen); MUCUS,URINE Many LPF (None Seen); SQUAMOUS EPITHELIAL CELL,UR Many /HPF (0-2)
[2019-06-02] MEDS ORDERED: LACTULOSE 20 GM/30 ML UDCUP PO PRN (01:15)
[2019-06-02] MEDS ORDERED: ACETAMINOPHEN 325 MG TAB PO PRN ×2 (01:15)
[2019-06-02] MEDS ORDERED: CEFTRIAXONE SODIUM 1 GM ONE (01:37)
[2019-06-02] MEDS ORDERED: SODIUM CHLORIDE 0.9% 1000ML 1,000 ML IV ONE (03:19)
[2019-06-02] MEDS ORDERED: MORPHINE SULFATE 2 MG/ML 1ML SYG ONE (03:20)
[2019-06-02 04:20] LABS: BASOPHILS % (AUTO) 0.1 % (0.0-5.0); EOSINOPHILS % (AUTO) 2.8 % (0.0-8.0); HEMATOCRIT 31.4 % (36-48); MEAN CORPUSCULAR HEMOGLOBIN 24.7 pg (27.0-33.0); MEAN CORPUSCULAR HGB CONC 29.9 g/dL (32.0-36.0); MEAN CORPUSCULAR VOLUME 82.6 fL (79-99); NEUTROPHILS % (AUTO) 66.8 % (40.0-77.0); PLATELET COUNT (AUTO) 325 K/uL (130-400); RED CELL DISTRIBUTION WIDTH 16.6 % (11.0-15.5); WHITE BLOOD COUNT (AUTO) 7.8 K/uL (4.8-10.8)
[2019-06-02 04:29] LABS: CREATININE 0.8 mg/dL (0.5-1.5); POTASSIUM 3.5 mmol/L (3.5-5.1)
[2019-06-02 05:25] VITALS: BP 135/90
[2019-06-02] MEDS ORDERED: ALPR2TAB7 PO (06:17)
[2019-06-02] MEDS ORDERED: MACR100 PO (06:17)
[2019-06-02] MEDS: ONDANSETRON HCL 4 MG/2 ML VIAL IV PRN ×3 (06:57→16:40)
[2019-06-02] MEDS: MORPHINE SULFATE 2 MG/ML 1ML SYG IV PRN ×4 (06:58→21:07)
--- NOTE | 2019-06-02 08:22 | NUR ---
SURGERY CONSULT SPOKE TO DR. RAND REGARDING CONSULT. STATED WILL SEE THE PATIENT LATER TODAY.
[2019-06-02 08:26] VITALS: BP 136/92
[2019-06-02] MEDS: ENOXAPARIN SODIUM 40 MG/0.4 ML SYRINGE SQ SCH (09:00)
[2019-06-02] MEDS: FAMOTIDINE/PF 20 MG/2 ML VIAL IV SCH ×2 (09:05→21:06)
[2019-06-02] MEDS: SODIUM CHLORIDE 0.9% 1000ML 1,000 ML IV SCH ×2 (09:05→21:07)
[2019-06-02 12:01] VITALS: BP 124/74
--- NOTE | 2019-06-02 13:15 | NUR ---
GI CONSULT SPOKE TO LEO FROM DR. ANTONIO'S OFFICE REGARDING CONSULT. PER LEO, FAX INFORMATION TO OFFICE AND DR. ANTONIO HAS ALREADY LEFT HIS OFFICE TO MAKE ROUNDS AT THE HOSPITAL. CALLED CELL PHONE, NO ANSWER AT THIS TIME.
--- NOTE | 2019-06-02 14:41 | NUR ---
INITIAL SW met with patient. Patient lives with sister and a roommate. Emergency contact is father, Anjelica Fong, [phone]. No home health but does have PHC X 15 hours a week. Patient does not remember the name of the agency. DME: walker with seat. Patient is able to complete ADL's independently but does not drive. Patient's sister helps patient with transportation. PCP is Dr. Jorge Negron. Pharmacy is [facility] located on [address]. DCP is home.
--- NOTE | 2019-06-02 16:10 | NUR ---
GI PAGED RE-PAGED DR. ANTONIO, MESSAGE LEFT REGARDING CONSULT, NO ANSWER AT THIS TIME.
[2019-06-02 16:49] VITALS: BP 134/67
[2019-06-02 20:28] VITALS: BP 133/86
--- NOTE | 2019-06-02 21:30 | NUR ---
MD ROUNDING DR. ANTONIO ON THE FLOOR, MADE AWARE OF PT'S CASE, STATED NO INTERVENTION NEEDED FROM HIS STAND POINT JUST TREAT THE PANCREATITIS. MADE AWARE THAT PT WANTED TO SEE HIM IN REGARDS TO EGD RESULTS SHE HAD DONE AT HIS OFFICE ON 04/12/19, STATED THAT IS NOT A REASON TO CONSULT HIM, SHE NEEDS TO FOLLOW UP AT THE OFFICE FOR THE RESULTS. NO NEW ORDERS GIVEN AT THIS TIME.
[2019-06-03] VITALS (7 sets, daily range): BP systolic 124–140; BP diastolic 76–89
[2019-06-03] MEDS: ONDANSETRON HCL 4 MG/2 ML VIAL IV PRN ×2 (02:01→20:04)
[2019-06-03] MEDS: MORPHINE SULFATE 2 MG/ML 1ML SYG IV PRN ×4 (02:01→20:05)
[2019-06-03 05:46] LABS: BASOPHILS % (AUTO) 0.3 % (0.0-5.0); EOSINOPHILS % (AUTO) 1.7 % (0.0-8.0); HEMATOCRIT 31.5 % (36-48); LYMPHOCYTES % (AUTO) 17.1 % (21.0-51.0); MEAN CORPUSCULAR HEMOGLOBIN 24.7 pg (27.0-33.0); MEAN CORPUSCULAR HGB CONC 30.2 g/dL (32.0-36.0); NEUTROPHILS % (AUTO) 76.5 % (40.0-77.0); PLATELET COUNT (AUTO) 321 K/uL (130-400); RED BLOOD CELL COUNT(AUTO) 3.84 MIL/uL (4.00-5.50); RED CELL DISTRIBUTION WIDTH 15.8 % (11.0-15.5); WHITE BLOOD COUNT (AUTO) 7.7 K/uL (4.8-10.8)
--- NOTE | 2019-06-03 06:00 | NUR ---
RECEIVED Pt received from 4th floor,report received from Bhaskar Gale.Pt aao x 3.Complaining of abdominal pain and nausea,was just medicated with Morphine per Bhaskar Gale.Pt has Ngt,placement checked via auscultation an aspiration.Connected to low intermittent suction draining greenish bile colored output.Pt is NPO.Rt femoral central line dressing dry and intact.All 3 ports patent,flushing well with brisk blood return.Ns running at 100 cc/hr via pump.Pt on Contact precaution for Hx of ESBL.Pt updated on plan of care,room,call light,verbalized understanding.
[2019-06-03 06:34] LABS: POTASSIUM 3.2 mmol/L (3.5-5.1)
[2019-06-03 06:54] LABS: CREATININE 0.7 mg/dL (0.5-1.5)
[2019-06-03] MEDS: SODIUM CHLORIDE 0.9% 1000ML 1,000 ML IV SCH ×2 (07:15→17:15)
--- NOTE | 2019-06-03 07:15 | NUR ---
REPORT Report given to Cathy CHAPMAN.Pt denies pain,no nausea or vomitting.Verbalized relief from Nausea Post Phenergan IM given.
[2019-06-03] MEDS ORDERED: PROMETHAZINE HCL 25 MG/ML 1ML AMPULE IM SCH (07:20)
[2019-06-03] MEDS ORDERED: LIDOCAINE HCL-MPF 1% 2ML VIAL IJ PRN (08:45)
[2019-06-03] MEDS ORDERED: MAGNESIUM 2GM PREMIX 50ML 50 ML IV SCH (08:45)
[2019-06-03] MEDS: ENOXAPARIN SODIUM 40 MG/0.4 ML SYRINGE SQ SCH (10:13)
[2019-06-03] MEDS: FAMOTIDINE/PF 20 MG/2 ML VIAL IV SCH ×2 (10:14→20:04)
[2019-06-03 13:05] LABS: ALBUMIN 3.4 g/dL (3.5-5.0); BILIRUBIN,DIRECT 0.1 mg/dL (0.0-0.3); BILIRUBIN,TOTAL 0.3 mg/dL (0.2-1.0); TOTAL PROTEIN, SERUM 6.9 g/dL (6.0-8.3)
[2019-06-03] MEDS: POTASSIUM CHLORIDE 20MEQ/100ML 100 ML IV PRN ×2 (13:35→15:30)
--- NOTE | 2019-06-03 20:05 | NUR ---
SELF-CATH Pt performs self catheterization for urinary retention. Addendum: 06/03/19 at 2228 by DIMAS HINOJOSA RN RN Amended: Links added.
--- NOTE | 2019-06-03 20:13 | NUR ---
PAIN/NAUSEA Pt requesting Zofran and Morphine for Nausea and abdominal PAin.She asked,"Can I have Phenergan if the Zofran did not work?"Told her I have to call the doctor for an order.
--- NOTE | 2019-06-03 23:45 | NUR ---
CALM Pt awake,alert,watching tv.Pt is asking when is the next pain medication due.No nausea or vomitting noted or reported.
[2019-06-04] MEDS: SODIUM CHLORIDE 0.9% 1000ML 1,000 ML IV SCH ×2 (00:18→16:16)
[2019-06-04] MEDS: MORPHINE SULFATE 2 MG/ML 1ML SYG IV PRN ×5 (00:18→22:46)
[2019-06-04] MEDS: PROMETHAZINE HCL 25 MG/ML 1ML AMPULE IM PRN ×3 (02:26→16:15)
--- NOTE | 2019-06-04 02:30 | NUR ---
PHENERGAN Pt still awake,watching tv,She states she could not sleep because she has Insomnia.Pt requesting Phenergan IM and her ngt be reconnected to low suction.Placement verified via ausculation,ngt connected to low intermittent wall suction,ngt draining green colored output.Pt medicated with Phenergan IM for c/o of nausea.
[2019-06-04 04:00] VITALS: BP 128/79
--- NOTE | 2019-06-04 04:47 | NUR ---
NGT Ngt clamped this time as per pt request.Morphine given for c/o epigastric pain.
[2019-06-04 05:44] LABS: BASOPHILS % (AUTO) 0.3 % (0.0-5.0); EOSINOPHILS % (AUTO) 0.8 % (0.0-8.0); HEMATOCRIT 31.8 % (36-48); LYMPHOCYTES % (AUTO) 22.9 % (21.0-51.0); MEAN CORPUSCULAR HEMOGLOBIN 24.4 pg (27.0-33.0); MEAN CORPUSCULAR HGB CONC 29.6 g/dL (32.0-36.0); MEAN CORPUSCULAR VOLUME 82.6 fL (79-99); MONOCYTES % (AUTO) 5.5 % (3.0-13.0); PLATELET COUNT (AUTO) 317 K/uL (130-400); RED BLOOD CELL COUNT(AUTO) 3.85 MIL/uL (4.00-5.50); RED CELL DISTRIBUTION WIDTH 15.5 % (11.0-15.5); WHITE BLOOD COUNT (AUTO) 6.2 K/uL (4.8-10.8)
[2019-06-04 05:56] LABS: CREATININE 0.7 mg/dL (0.5-1.5); POTASSIUM 4.1 mmol/L (3.5-5.1)
--- NOTE | 2019-06-04 05:59 | NUR ---
MED EFFECT Denies pain,no nausea or vomitting.NGT remains clamped.Bria well.
[2019-06-04 08:00] VITALS: BP 127/78
[2019-06-04] MEDS: ENOXAPARIN SODIUM 40 MG/0.4 ML SYRINGE SQ SCH (09:05)
[2019-06-04] MEDS: FAMOTIDINE/PF 20 MG/2 ML VIAL IV SCH ×2 (09:05→22:08)
[2019-06-04 12:11] VITALS: BP 142/89
[2019-06-04] MEDS ORDERED: ALPRAZOLAM 1 MG TAB PO SCH (14:00)
[2019-06-04 16:00] VITALS: BP 137/79
[2019-06-04] MEDS: FERROUS SULFATE 325 MG TABLET.DR PO SCH (16:15)
[2019-06-04] MEDS ORDERED: ERYTHROMYCIN BASE 250 MG TABLET PO SCH (18:15)
--- NOTE | 2019-06-04 18:55 | NUR ---
D/C NGT Removed NGT as ordered by MD. Patient tolerated well. No issues.
[2019-06-04 19:54] VITALS: BP 119/68
[2019-06-04 20:07] LABS: INR 1.06 (0.85-1.15); PARTIAL THROMBOPLASTIN TIME 30.1 SEC (26.3-35.5); PROTHROMBIN TIME 11.4 SEC (9.6-11.6)
[2019-06-04] MEDS ORDERED: OLANZAPINE ODT 5 MG TAB PO SCH (21:00)
[2019-06-04] MEDS: FAMOTIDINE 20MG TAB 20 MG TAB PO SCH (21:00)
[2019-06-04] MEDS: DOCUSATE SODIUM 100 MG CAP PO SCH (22:09)
[2019-06-04] MEDS: MIRTAZAPINE 15 MG TABLET PO SCH (22:09)
[2019-06-04] MEDS: NITROFURANTOIN MONOHYD/M-CRYST 100 MG CAPSULE PO SCH (22:09)
[2019-06-04] MEDS: TOPIRAMATE 100 MG TAB PO SCH (22:09)
[2019-06-04 23:26] VITALS: BP 115/73
[2019-06-05 03:09] VITALS: BP 132/83
[2019-06-05] MEDS: SODIUM CHLORIDE 0.9% 1000ML 1,000 ML IV SCH ×3 (03:45→16:07)
[2019-06-05] MEDS: MORPHINE SULFATE 2 MG/ML 1ML SYG IV PRN ×3 (05:05→22:52)
[2019-06-05 07:03] LABS: BASOPHILS % (AUTO) 0.3 % (0.0-5.0); EOSINOPHILS % (AUTO) 2.5 % (0.0-8.0); HEMATOCRIT 30.1 % (36-48); LYMPHOCYTES % (AUTO) 25.8 % (21.0-51.0); MEAN CORPUSCULAR HEMOGLOBIN 24.9 pg (27.0-33.0); MEAN CORPUSCULAR HGB CONC 30.6 g/dL (32.0-36.0); MEAN CORPUSCULAR VOLUME 81.4 fL (79-99); NEUTROPHILS % (AUTO) 61.1 % (40.0-77.0); PLATELET COUNT (AUTO) 316 K/uL (130-400); RED CELL DISTRIBUTION WIDTH 15.5 % (11.0-15.5); WHITE BLOOD COUNT (AUTO) 6.3 K/uL (4.8-10.8)
[2019-06-05 07:14] LABS: CREATININE 0.8 mg/dL (0.5-1.5); MAGNESIUM 1.8 mg/dL (1.80-2.40); POTASSIUM 3.3 mmol/L (3.5-5.1)
[2019-06-05 07:28] VITALS: BP 104/71
[2019-06-05] MEDS: ENOXAPARIN SODIUM 40 MG/0.4 ML SYRINGE SQ SCH (08:25)
[2019-06-05] MEDS: FOLIC ACID 1 MG TABLET PO SCH (08:44)
[2019-06-05] MEDS: DOCUSATE SODIUM 100 MG CAP PO SCH ×2 (08:44→22:24)
[2019-06-05] MEDS: FERROUS SULFATE 325 MG TABLET.DR PO SCH ×2 (08:44→18:37)
[2019-06-05] MEDS: FAMOTIDINE 20MG TAB 20 MG TAB PO SCH ×2 (08:44→21:00)
[2019-06-05] MEDS: FAMOTIDINE/PF 20 MG/2 ML VIAL IV SCH ×2 (08:44→22:25)
[2019-06-05] MEDS: NITROFURANTOIN MONOHYD/M-CRYST 100 MG CAPSULE PO SCH ×2 (08:44→22:24)
[2019-06-05 10:45] VITALS: BP 117/75
[2019-06-05] MEDS: PROMETHAZINE HCL 25 MG/ML 1ML AMPULE IM PRN (15:34)
[2019-06-05 15:47] VITALS: BP 115/74
[2019-06-05 17:28] LABS: CHOLESTEROL 164 mg/dL (<200); HDL CHOLESTEROL 94 mg/dL (35-85); LDL DIRECT 102 mg/dL (0-99); TRIGLYCERIDES 129 mg/dL (30-200)
[2019-06-05] MEDS ORDERED: MAGNESIUM 2GM PREMIX 50ML 50 ML IV PRN (18:30)
[2019-06-05] MEDS ORDERED: POTASSIUM CHLORIDE 20 MEQ ERTAB PO PRN (18:30)
[2019-06-05] MEDS ORDERED: LIDOCAINE HCL-MPF 1% 2ML VIAL IJ PRN (18:30)
[2019-06-05] MEDS ORDERED: POTASSIUM CHLORIDE 20 MEQ ERTAB PO ONE (18:52)
--- NOTE | 2019-06-05 19:08 | NUR ---
CONSENT Patient not a candidate for PICC S/Tscarring according to nurse Briggs. Dr. Broussard notified. Gave orders and obtained consent for central line as ordered.
[2019-06-05 20:27] VITALS: BP 110/64
[2019-06-05] MEDS: MIRTAZAPINE 15 MG TABLET PO SCH (22:24)
[2019-06-05] MEDS: TOPIRAMATE 100 MG TAB PO SCH (22:24)
[2019-06-05] MEDS: SENNOSIDES 8.6 MG TABLET PO SCH (22:24)
[2019-06-05] MEDS: POTASSIUM CHLORIDE 20MEQ/100ML 100 ML IV PRN (22:26)
[2019-06-05] MEDS: ALPRAZOLAM 1 MG TAB PO PRN (22:51)
[2019-06-06] MEDS: POTASSIUM CHLORIDE 20MEQ/100ML 100 ML IV PRN (00:18)
[2019-06-06 00:21] VITALS: BP 112/75
[2019-06-06] MEDS: SODIUM CHLORIDE 0.9% 1000ML 1,000 ML IV SCH ×2 (01:34→21:10)
[2019-06-06 04:15] VITALS: BP 96/73
[2019-06-06] MEDS: MORPHINE SULFATE 2 MG/ML 1ML SYG IV PRN ×5 (05:18→23:21)
[2019-06-06] MEDS: PROMETHAZINE HCL 25 MG/ML 1ML AMPULE IM PRN (05:36)
[2019-06-06 05:40] LABS: CREATININE 0.7 mg/dL (0.5-1.5); MAGNESIUM 2.2 mg/dL (1.80-2.40); POTASSIUM 3.3 mmol/L (3.5-5.1)
[2019-06-06 08:00] VITALS: BP 112/71
[2019-06-06] MEDS: FAMOTIDINE 20MG TAB 20 MG TAB PO SCH ×2 (09:00→21:00)
[2019-06-06] MEDS: ENOXAPARIN SODIUM 40 MG/0.4 ML SYRINGE SQ SCH (09:00)
[2019-06-06] MEDS: POTASSIUM CHLORIDE 10% ELIXIR 20 MEQ/15 ML UDCUP PO PRN ×3 (09:29→17:37)
[2019-06-06] MEDS: FAMOTIDINE/PF 20 MG/2 ML VIAL IV SCH ×2 (09:30→21:12)
[2019-06-06] MEDS: DOCUSATE SODIUM 100 MG CAP PO SCH ×2 (09:30→21:11)
[2019-06-06] MEDS: NITROFURANTOIN MONOHYD/M-CRYST 100 MG CAPSULE PO SCH ×2 (09:30→21:11)
[2019-06-06] MEDS: SENNOSIDES 8.6 MG TABLET PO SCH ×2 (09:30→21:11)
[2019-06-06] MEDS: FERROUS SULFATE 325 MG TABLET.DR PO SCH ×2 (09:31→17:37)
[2019-06-06] MEDS: FOLIC ACID 1 MG TABLET PO SCH (09:36)
--- NOTE | 2019-06-06 11:00 | NUR ---
Spoke with [facility] and with IR regarding order to place PICC or central line under flouro. Both IR nurse Ty and [employer] [facility] nurse Ina stated Radiologist does not place these. Would need to be done at bedside. Updated Dr. Elizalde, ordering MD, stated he already spoke to Dr. Rowell and he would place line either tonight or tomorrow morning.
[2019-06-06 12:00] VITALS: BP 114/79
[2019-06-06] MEDS: MAGNESIUM HYDROXIDE 30 ML/UDCUP PO SCH (14:09)
[2019-06-06 14:30] LABS: INR 1.09 (0.85-1.15); PROTHROMBIN TIME 11.7 SEC (9.6-11.6)
[2019-06-06 16:00] VITALS: BP 116/78
[2019-06-06 19:00] VITALS: BP 92/60
[2019-06-06] MEDS: MIRTAZAPINE 15 MG TABLET PO SCH (21:11)
[2019-06-06] MEDS: TOPIRAMATE 100 MG TAB PO SCH (21:11)
[2019-06-06] MEDS: ALPRAZOLAM 1 MG TAB PO PRN (21:11)
[2019-06-07] VITALS (7 sets, daily range): BP systolic 99–138; BP diastolic 59–98
[2019-06-07] MEDS: SODIUM CHLORIDE 0.9% 1000ML 1,000 ML IV SCH ×3 (01:15→20:18)
[2019-06-07] MEDS: MORPHINE SULFATE 2 MG/ML 1ML SYG IV PRN ×4 (05:22→20:21)
[2019-06-07 06:00] LABS: CREATININE 0.7 mg/dL (0.5-1.5); POTASSIUM 3.5 mmol/L (3.5-5.1)
--- NOTE | 2019-06-07 06:28 | NUR ---
PATIENT UPDATE Slept fairly overnight, medicated twice for abdominal pain with morphine 2 mg iv push, no complaints of nausea, finally had a bowel movement this am. Still hypokalemia at 3.5,will continue with the hypokalemia protocol. Pending central line placement in the jugular or subclavian veins this am and eventually d/c the rt femoral line. Still pending to be seen by Dr. Campbell today for the persistent abdominal pain.
[2019-06-07] MEDS: FAMOTIDINE 20MG TAB 20 MG TAB PO SCH ×2 (07:44→21:00)
[2019-06-07] MEDS: ENOXAPARIN SODIUM 40 MG/0.4 ML SYRINGE SQ SCH (08:42)
[2019-06-07] MEDS: MAGNESIUM HYDROXIDE 30 ML/UDCUP PO SCH (08:44)
[2019-06-07] MEDS: NITROFURANTOIN MONOHYD/M-CRYST 100 MG CAPSULE PO SCH ×2 (08:44→20:21)
[2019-06-07] MEDS: DOCUSATE SODIUM 100 MG CAP PO SCH ×2 (08:44→20:20)
[2019-06-07] MEDS: FOLIC ACID 1 MG TABLET PO SCH (08:44)
[2019-06-07] MEDS: FAMOTIDINE/PF 20 MG/2 ML VIAL IV SCH ×2 (08:44→20:19)
[2019-06-07] MEDS: FERROUS SULFATE 325 MG TABLET.DR PO SCH ×2 (08:45→17:02)
[2019-06-07] MEDS: SENNOSIDES 8.6 MG TABLET PO SCH ×2 (08:45→20:20)
[2019-06-07] MEDS: POTASSIUM CHLORIDE 10% ELIXIR 20 MEQ/15 ML UDCUP PO PRN ×2 (09:25→13:55)
[2019-06-07] MEDS: PROMETHAZINE HCL 25 MG/ML 1ML AMPULE IM PRN (09:26)
--- NOTE | 2019-06-07 16:28 | NUR ---
Dr. Campbell in house, but did not round on pt. When asked if he would place central line as ordered by Dr. Elizalde, he stated 'No." Dr. Elizalde made aware. He stated he spoke again with Dr. Campbell, the latter had many surgical cases and would not be available, and that he would call Dr. Barrett and see if he could place it tonight. If not, Dr Elizalde stated line would be placed tomorrow by either .
--- NOTE | 2019-06-07 16:31 | NUR ---
OZZIE SPOKE WITH DR. MONZON REGARDING PLACING CENTRAL LINE ON PATIENT. DR. MONZON STATED HE SPOKE WITH DR. SARGENT REGARDING THE PROCEDURE. DR. MONZON FURTHER STATED DR. WEBB MAY POSSIBLY DO THE PROCEDURE EITHER TOMORROW 06/08/2019 OR ON SUNDAY.
[2019-06-07] MEDS: MIRTAZAPINE 15 MG TABLET PO SCH (20:20)
[2019-06-07] MEDS: TOPIRAMATE 100 MG TAB PO SCH (20:21)
[2019-06-08] MEDS: PROMETHAZINE HCL 25 MG/ML 1ML AMPULE IM PRN ×4 (01:26→22:39)
[2019-06-08] MEDS: MORPHINE SULFATE 2 MG/ML 1ML SYG IV PRN ×4 (01:26→22:39)
[2019-06-08 03:40] VITALS: BP 116/79
[2019-06-08] MEDS: SODIUM CHLORIDE 0.9% 1000ML 1,000 ML IV SCH ×2 (06:03→15:39)
[2019-06-08 06:40] LABS: BASOPHILS % (AUTO) 0.4 % (0.0-5.0); EOSINOPHILS % (AUTO) 5.4 % (0.0-8.0); HEMATOCRIT 31.1 % (36-48); LYMPHOCYTES % (AUTO) 25.2 % (21.0-51.0); MEAN CORPUSCULAR HEMOGLOBIN 25.3 pg (27.0-33.0); MEAN CORPUSCULAR HGB CONC 31.2 g/dL (32.0-36.0); MEAN CORPUSCULAR VOLUME 81.2 fL (79-99); MONOCYTES % (AUTO) 8.2 % (3.0-13.0); NEUTROPHILS % (AUTO) 60.4 % (40.0-77.0); PLATELET COUNT (AUTO) 343 K/uL (130-400); RED BLOOD CELL COUNT(AUTO) 3.83 MIL/uL (4.00-5.50); RED CELL DISTRIBUTION WIDTH 17.2 % (11.0-15.5)
[2019-06-08 06:53] LABS: CREATININE 0.7 mg/dL (0.5-1.5); MAGNESIUM 1.9 mg/dL (1.80-2.40); POTASSIUM 3.9 mmol/L (3.5-5.1)
[2019-06-08 07:25] VITALS: BP 119/85
[2019-06-08] MEDS: NITROFURANTOIN MONOHYD/M-CRYST 100 MG CAPSULE PO SCH ×2 (08:20→21:49)
[2019-06-08] MEDS: FOLIC ACID 1 MG TABLET PO SCH (08:21)
[2019-06-08] MEDS: FAMOTIDINE/PF 20 MG/2 ML VIAL IV SCH ×2 (08:21→21:49)
[2019-06-08] MEDS: FERROUS SULFATE 325 MG TABLET.DR PO SCH ×2 (08:21→16:19)
[2019-06-08] MEDS: DOCUSATE SODIUM 100 MG CAP PO SCH (08:22)
[2019-06-08] MEDS: SENNOSIDES 8.6 MG TABLET PO SCH (08:22)
[2019-06-08] MEDS: FAMOTIDINE 20MG TAB 20 MG TAB PO SCH ×2 (08:22→21:00)
[2019-06-08] MEDS: ENOXAPARIN SODIUM 40 MG/0.4 ML SYRINGE SQ SCH (08:22)
[2019-06-08] MEDS: MAGNESIUM HYDROXIDE 30 ML/UDCUP PO SCH (08:22)
--- NOTE | 2019-06-08 09:00 | NUR ---
Dr. Elizalde stated he will can Dr. Barrett to discuss further, but at this point he does not feel pt needs central line as discharge plans are for tomorrow. Feels pt will not benefit and will be unneeded procedure as it will be removed in less than 24 hours anyway.
[2019-06-08 12:00] VITALS: BP 126/84
[2019-06-08 16:00] VITALS: BP 121/80
[2019-06-08 19:00] VITALS: BP 110/70
[2019-06-08] MEDS: MIRTAZAPINE 15 MG TABLET PO SCH (21:49)
[2019-06-08] MEDS: TOPIRAMATE 100 MG TAB PO SCH (21:49)
[2019-06-08 23:00] VITALS: BP 120/87
[2019-06-09] MEDS: ALPRAZOLAM 1 MG TAB PO PRN (00:03)
[2019-06-09 03:00] VITALS: BP 102/63
[2019-06-09] MEDS ORDERED: MORPHINE SULFATE 2 MG/ML 1ML SYG IVP PRN (05:45)
[2019-06-09] MEDS: SODIUM CHLORIDE 0.9% 1000ML 1,000 ML IV SCH ×2 (06:15→08:39)
[2019-06-09 07:23] VITALS: BP 103/57
[2019-06-09] MEDS: NITROFURANTOIN MONOHYD/M-CRYST 100 MG CAPSULE PO SCH (08:38)
[2019-06-09] MEDS: FOLIC ACID 1 MG TABLET PO SCH (08:38)
[2019-06-09] MEDS: FAMOTIDINE/PF 20 MG/2 ML VIAL IV SCH (08:38)
[2019-06-09] MEDS: FERROUS SULFATE 325 MG TABLET.DR PO SCH (08:38)
[2019-06-09] MEDS: ENOXAPARIN SODIUM 40 MG/0.4 ML SYRINGE SQ SCH (08:39)
[2019-06-09] MEDS: FAMOTIDINE 20MG TAB 20 MG TAB PO SCH (08:40)
[2019-06-09] MEDS: PROMETHAZINE HCL 25 MG/ML 1ML AMPULE IM PRN (08:53)
[2019-06-09] MEDS ORDERED: ACET1TAB12 PO (11:51)
[2019-06-09 12:23] VITALS: BP 120/81
== END 2019-06-09 13:35 | disposition home or self-care (01) | DRG 282 ==
LOC: EDH 20:20 → EDHIP 20:21 → 4BH 06-02 04:42 → 3CH 06-03 06:13
PROVIDERS: ADMIT Internal Medicine; ATTEND Internal Medicine
DX: K85.90 Acute pancreatitis without necrosis or infection, unspecified (principal); K56.609 Unspecified intestinal obstruction, unspecified as to partial versus complete obstruction; F32.9 Major depressive disorder, single episode, unspecified; Q05.9 Spina bifida, unspecified; F41.8 Other specified anxiety disorders; K86.1 Other chronic pancreatitis; G40.909 Epilepsy, unspecified, not intractable, without status epilepticus; E87.6 Hypokalemia; E83.42 Hypomagnesemia; K56.7 Ileus, unspecified; N20.0 Calculus of kidney; Z98.2 Presence of cerebrospinal fluid drainage device; Z93.3 Colostomy status; Z88.0 Allergy status to penicillin; Z88.8 Allergy status to other drugs, medicaments and biological substances; Z80.49 Family history of malignant neoplasm of other genital organs; Z82.5 Family history of asthma and other chronic lower respiratory diseases; Z83.3 Family history of diabetes mellitus; Z82.3 Family history of stroke; Z82.0 Family history of epilepsy and other diseases of the nervous system; Z82.49 Family history of ischemic heart disease and other diseases of the circulatory system
CPT/HCPCS: 36415; 74018; 74021; 74176; 80048; 80053; 80061; 80076; 81001; 81025; 83690; 83735; 85025; 85610; 85730; 87088; 99291; G0378; J0696; J1650; J2270; J2405; J2550; J3475; J3480; J3490; J7030; Q9967

== ENCOUNTER 2019-06-17 01:37 | Emergency (ER) | payer MEDICAID ==
[~2019-06-17 01:37] MED LIST changes: +ACET1TAB12 PO; -LEVE250T2 PO; +MACR100 PO
[2019-06-17 02:41] LABS: BILIRUBIN,URINE Negative (NEGATIVE); COLOR,URINE Yellow (YELLOW); GLUCOSE, URINE (UA) Negative (NEGATIVE); KETONES,URINE Negative (NEGATIVE); LEUKOCYTE ESTERASE ,URINE Negative (NEGATIVE); NITRATE,URINE Negative (NEGATIVE); OCCULT BLOOD,URINE Negative (NEGATIVE); PROTEIN,URINE Negative (NEGATIVE); UROBILINOGEN,URINE 0.2 mg/dL (0.2-1.0)
[2019-06-17 02:46] LABS: APPEARANCE,URINE CLEAR (CLEAR)
[2019-06-17 02:49] LABS: BASOPHILS % (AUTO) 0.3 % (0.0-5.0); EOSINOPHILS % (AUTO) 2.5 % (0.0-8.0); HEMATOCRIT 33.1 % (36-48); MEAN CORPUSCULAR HEMOGLOBIN 25.4 pg (27.0-33.0); MEAN CORPUSCULAR HGB CONC 30.8 g/dL (32.0-36.0); MEAN CORPUSCULAR VOLUME 82.3 fL (79-99); MONOCYTES % (AUTO) 7.2 % (3.0-13.0); NEUTROPHILS % (AUTO) 62.7 % (40.0-77.0); PLATELET COUNT (AUTO) 181 K/uL (130-400); RED BLOOD CELL COUNT(AUTO) 4.02 MIL/uL (4.00-5.50); RED CELL DISTRIBUTION WIDTH 17.4 % (11.0-15.5); WHITE BLOOD COUNT (AUTO) 7.9 K/uL (4.8-10.8)
[2019-06-17 02:49] LABS: AMPHET/METH SCREEN,URINE NEGATIVE (NEGATIVE); BARBITURATE SCREEN, URINE NEGATIVE (NEGATIVE); BENZODIAZEPINES SCREEN,URINE POSITIVE (NEGATIVE); CANNABINOID SCREEN,URINE NEGATIVE (NEGATIVE); COCAINE SCREEN,URINE NEGATIVE (NEGATIVE); OPIATE SCREEN,URINE POSITIVE (NEGATIVE); PHENCYCLIDINE SCREEN,URINE NEGATIVE (NEGATIVE)
[2019-06-17] MEDS ORDERED: IOHEXOL-350 75 ML VIAL IV ONE (03:29)
[2019-06-17] MEDS ORDERED: ONDANSETRON HCL 4 MG/2 ML VIAL ONE (03:31)
[2019-06-17] MEDS ORDERED: SODIUM CHLORIDE 0.9% 1000ML 1,000 ML IV ONE (03:32)
[2019-06-17] MEDS ORDERED: FAMOTIDINE/PF 20 MG/2 ML VIAL IV ONE (03:32)
[2019-06-17 03:44] LABS: PARTIAL THROMBOPLASTIN TIME 27.8 SEC (26.3-35.5); PROTHROMBIN TIME 10.8 SEC (9.6-11.6)
[2019-06-17 03:45] LABS: CREATININE 0.7 mg/dL (0.5-1.5); POTASSIUM 3.8 mmol/L (3.5-5.1)
[2019-06-17 03:56] LABS: ALBUMIN 3.6 g/dL (3.5-5.0); BILIRUBIN,TOTAL 0.2 mg/dL (0.2-1.0); TOTAL PROTEIN, SERUM 6.7 g/dL (6.0-8.3)
[2019-06-17] MEDS ORDERED: LEVOFLOXACIN 500 MG/D5W 100 ML 100 ML ONE (04:43)
[2019-06-17] MEDS ORDERED: MAG HYDROX/AL HYDROX/SIMETH ES 30 ML SUSP UDCUP ONE (05:15)
[2019-06-17] MEDS ORDERED: LIDOCAINE HCL 2% VISCOUS 15 ML UDCUP ONE (05:15)
[2019-06-17] MEDS ORDERED: KETOROLAC TROMETHAMINE 15MG/ML ONE (05:46)
== END 2019-06-17 05:52 | disposition home or self-care (01) ==
LOC: EDH 01:37
DX: K52.9 Noninfective gastroenteritis and colitis, unspecified (principal); R05 Cough; M54.9 Dorsalgia, unspecified; I10 Essential (primary) hypertension
CPT/HCPCS: 36415; 71045; 74177; 80053; 80305; 81003; 82550; 83605; 83690; 85025; 85610; 85730; 96361; 96365; 96375; 99285; J1885; J1956; J2405; J3490; J7030; Q9967

== ENCOUNTER 2019-09-20 20:33 | Emergency (ER) | payer MEDICAID ==
[2019-09-20] MEDS ORDERED: ONDANSETRON ODT 4 MG TAB ONE (22:53)
[2019-09-20] MEDS ORDERED: MORPHINE SULFATE 4 MG/1ML SYG ONE (22:53)
== END 2019-09-20 23:50 | disposition home or self-care (01) ==
LOC: EDH 20:33
DX: S40.011A Contusion of right shoulder, initial encounter (principal); S09.90XA Unspecified injury of head, initial encounter; I10 Essential (primary) hypertension; W01.0XXA Fall on same level from slipping, tripping and stumbling without subsequent striking against object, initial encounter; Y93.01 Activity, walking, marching and hiking; Y92.89 Other specified places as the place of occurrence of the external cause; Y99.8 Other external cause status
CPT/HCPCS: 36415; 70450; 73030; 80053; 84484; 84702; 85025; 93005; 96372; 99285; J2270

== ENCOUNTER 2019-11-02 16:39 | Emergency (ER) | payer MEDICAID ==
[2019-11-02 17:18] LABS: BASOPHILS % (AUTO) 0.1 % (0.0-5.0); EOSINOPHILS % (AUTO) 1.4 % (0.0-8.0); LYMPHOCYTES % (AUTO) 14.4 % (21.0-51.0); MEAN CORPUSCULAR HEMOGLOBIN 23.5 pg (27.0-33.0); MEAN CORPUSCULAR VOLUME 78.2 fL (79-99); MONOCYTES % (AUTO) 4.7 % (3.0-13.0); NEUTROPHILS % (AUTO) 79.2 % (40.0-77.0); PLATELET COUNT (AUTO) 307 K/uL (130-400); RED BLOOD CELL COUNT(AUTO) 3.71 MIL/uL (4.00-5.50); RED CELL DISTRIBUTION WIDTH 18.3 % (11.0-15.5); WHITE BLOOD COUNT (AUTO) 9.7 K/uL (4.8-10.8)
[2019-11-02 17:29] LABS: APPEARANCE,URINE SL CLOUDY (CLEAR); BILIRUBIN,URINE SMALL (NEGATIVE); COLOR,URINE YELLOW (YELLOW); GLUCOSE, URINE (UA) 100 mg/dL (NEGATIVE); KETONES,URINE 5 mg/dL (NEGATIVE); LEUKOCYTE ESTERASE ,URINE MODERATE (NEGATIVE); NITRATE,URINE POSITIVE (NEGATIVE); OCCULT BLOOD,URINE TRACE-INTACT (NEGATIVE); PROTEIN,URINE 100 mg/dL (NEGATIVE)
[2019-11-02 17:31] LABS: INR 1.01 (0.85-1.15); PARTIAL THROMBOPLASTIN TIME 30.1 SEC (26.3-35.5); PROTHROMBIN TIME 10.9 SEC (9.6-11.6)
[2019-11-02 17:33] LABS: ALBUMIN 3.9 g/dL (3.5-5.0); BILIRUBIN,TOTAL 0.3 mg/dL (0.2-1.0); CREATININE 0.8 mg/dL (0.5-1.5); POTASSIUM 3.9 mmol/L (3.5-5.1); TOTAL PROTEIN, SERUM 7.3 g/dL (6.0-8.3)
[2019-11-02 17:35] LABS: AMPHET/METH SCREEN,URINE POSITIVE (NEGATIVE); BARBITURATE SCREEN, URINE NEGATIVE (NEGATIVE); BENZODIAZEPINES SCREEN,URINE POSITIVE (NEGATIVE); CANNABINOID SCREEN,URINE NEGATIVE (NEGATIVE); COCAINE SCREEN,URINE NEGATIVE (NEGATIVE); OPIATE SCREEN,URINE NEGATIVE (NEGATIVE); PHENCYCLIDINE SCREEN,URINE NEGATIVE (NEGATIVE)
[2019-11-02 17:46] LABS: BACTERIA,URINE Few /HPF (None Seen); MUCUS,URINE Few LPF (None Seen); SQUAMOUS EPITHELIAL CELL,UR Few /HPF (0-2)
[2019-11-02] MEDS ORDERED: CEPHALEXIN 500 MG CAPSULE ONE (18:45)
== END 2019-11-02 18:46 | disposition home or self-care (01) ==
LOC: EDH 16:39
DX: N39.0 Urinary tract infection, site not specified (principal); I10 Essential (primary) hypertension; Z87.891 Personal history of nicotine dependence
CPT/HCPCS: 36415; 80053; 80305; 81001; 83690; 85025; 85610; 85730; 87088

== ENCOUNTER 2020-05-15 01:51 | Emergency (ER) | payer MEDICAID ==
[2020-05-15] MEDS ORDERED: ONDANSETRON HCL 4 MG/2 ML VIAL ONE (02:09)
[2020-05-15] MEDS ORDERED: METOCLOPRAMIDE 10 MG/2 ML VIAL ONE (02:09)
[2020-05-15] MEDS ORDERED: PANTOPRAZOLE 40 MG/VIAL ONE (02:10)
[2020-05-15] MEDS ORDERED: FAMOTIDINE/PF 20 MG/2 ML VIAL IV ONE (02:10)
[2020-05-15 02:59] LABS: BASOPHILS % (AUTO) 0.3 % (0.0-5.0); EOSINOPHILS % (AUTO) 2.7 % (0.0-8.0); HEMATOCRIT 32.1 % (36-48); MEAN CORPUSCULAR HEMOGLOBIN 25.9 pg (27.0-33.0); MEAN CORPUSCULAR HGB CONC 30.5 g/dL (32.0-36.0); MEAN CORPUSCULAR VOLUME 84.7 fL (79-99); NEUTROPHILS % (AUTO) 65.7 % (40.0-77.0); PLATELET COUNT (AUTO) 273 K/uL (130-400); RED BLOOD CELL COUNT(AUTO) 3.79 MIL/uL (4.00-5.50); RED CELL DISTRIBUTION WIDTH 15.7 % (11.0-15.5); WHITE BLOOD COUNT (AUTO) 7.3 K/uL (4.8-10.8)
[2020-05-15 03:05] LABS: CREATININE 0.9 mg/dL (0.5-1.5); POTASSIUM 3.4 mmol/L (3.5-5.1)
[2020-05-15 03:09] LABS: ALBUMIN 3.9 g/dL (3.5-5.0); BILIRUBIN,TOTAL 0.2 mg/dL (0.2-1.0); TOTAL PROTEIN, SERUM 7.3 g/dL (6.0-8.3)
[2020-05-15 03:09] LABS: BILIRUBIN,URINE Negative (NEGATIVE); COLOR,URINE Yellow (YELLOW); GLUCOSE, URINE (UA) Negative (NEGATIVE); KETONES,URINE Negative (NEGATIVE); LEUKOCYTE ESTERASE ,URINE Trace (NEGATIVE); NITRATE,URINE Negative (NEGATIVE); OCCULT BLOOD,URINE Negative (NEGATIVE); PROTEIN,URINE Negative (NEGATIVE); UROBILINOGEN,URINE 0.2 mg/dL (0.2-1.0)
[2020-05-15 03:12] LABS: APPEARANCE,URINE SLIGHTLY CLOUDY (CLEAR)
[2020-05-15 03:26] LABS: BACTERIA,URINE Few /HPF (None Seen); RBC,URINE None Seen /HPF (0-1); SQUAMOUS EPITHELIAL CELL,UR Rare /HPF (0-2)
[2020-05-15] MEDS ORDERED: IOHEXOL-350 75 ML VIAL IV ONE (03:28)
[2020-05-15] MEDS ORDERED: IOHEXOL-350 50ML VIAL IV ONE (03:50)
[2020-05-15] MEDS ORDERED: KETOROLAC TROMETHAMINE 30MG/ML ONE (04:37)
== END 2020-05-15 05:18 | disposition home or self-care (01) ==
LOC: EDH 01:51
DX: K59.00 Constipation, unspecified (principal); E86.0 Dehydration; R11.2 Nausea with vomiting, unspecified; I10 Essential (primary) hypertension
CPT/HCPCS: 36415; 74177; 80053; 81001; 81025; 83690; 85025; 87077; 87088; 87186; 93005; 96361 ×2; 96374; 96375; 99285; C9113; J1885; J2405; J2765; J3490; Q9967

== ENCOUNTER 2020-07-12 16:48 | Inpatient (IN) | payer MEDICAID ==
[~2020-07-12] VITALS: Ht 147.3 cm; Wt 68.0 kg
[~2020-07-12 16:48] MED LIST changes: -FAMO-135 PO; +FAMO-290 PO; +MIRT-22 PO; -MIRT15TA6 PO
[2020-07-12 19:04] LABS: APPEARANCE,URINE CLOUDY (CLEAR); BILIRUBIN,URINE NEGATIVE (NEGATIVE); COLOR,URINE YELLOW (YELLOW); GLUCOSE, URINE (UA) NEGATIVE (NEGATIVE); KETONES,URINE NEGATIVE (NEGATIVE); LEUKOCYTE ESTERASE ,URINE SMALL (NEGATIVE); NITRATE,URINE POSITIVE (NEGATIVE); OCCULT BLOOD,URINE NEGATIVE (NEGATIVE); PROTEIN,URINE NEGATIVE (NEGATIVE); UROBILINOGEN,URINE 0.2 mg/dL (0.2-1.0)
[2020-07-12 19:12] LABS: AMPHET/METH SCREEN,URINE NEGATIVE (NEGATIVE); BARBITURATE SCREEN, URINE NEGATIVE (NEGATIVE); BENZODIAZEPINES SCREEN,URINE POSITIVE (NEGATIVE); CANNABINOID SCREEN,URINE NEGATIVE (NEGATIVE); COCAINE SCREEN,URINE NEGATIVE (NEGATIVE); OPIATE SCREEN,URINE NEGATIVE (NEGATIVE); PHENCYCLIDINE SCREEN,URINE NEGATIVE (NEGATIVE)
[2020-07-12 19:20] LABS: BACTERIA,URINE Moderate /HPF (None Seen)
[2020-07-12 19:21] LABS: WBC,URINE 26-50 /HPF (0-1)
[2020-07-12 19:22] LABS: SQUAMOUS EPITHELIAL CELL,UR Few /HPF (0-2)
[2020-07-12] MEDS ORDERED: ACETAMINOPHEN 650 MG SUPPOSITORY RC PRN ×2 (19:30)
[2020-07-12] MEDS: LEVOFLOXACIN 500 MG/D5W 100 ML 100 ML IV SCH (19:30)
[2020-07-12] MEDS ORDERED: NITROGLYCERIN 0.4 MG SL TAB SL PRN (19:30)
[2020-07-12] MEDS: 0.9%NACL 1000ML 1,000 ML IV SCH (19:30)
[2020-07-12 20:08] LABS: BASOPHILS % (AUTO) 0.3 % (0.0-5.0); EOSINOPHILS % (AUTO) 2.2 % (0.0-8.0); HEMATOCRIT 35.9 % (36-48); LYMPHOCYTES % (AUTO) 21.9 % (21.0-51.0); MEAN CORPUSCULAR HEMOGLOBIN 26.1 pg (27.0-33.0); MEAN CORPUSCULAR HGB CONC 30.9 g/dL (32.0-36.0); MEAN CORPUSCULAR VOLUME 84.5 fL (79-99); MONOCYTES % (AUTO) 6.1 % (3.0-13.0); NEUTROPHILS % (AUTO) 68.5 % (40.0-77.0); PLATELET COUNT (AUTO) 152 K/uL (130-400); RED BLOOD CELL COUNT(AUTO) 4.25 MIL/uL (4.00-5.50); RED CELL DISTRIBUTION WIDTH 16.3 % (11.0-15.5); WHITE BLOOD COUNT (AUTO) 9.2 K/uL (4.8-10.8)
[2020-07-12 20:26] LABS: POTASSIUM 3.9 mmol/L (3.5-5.1)
[2020-07-12] MEDS ORDERED: 0.9%NACL 1000ML 1,000 ML IV ONE (20:33)
[2020-07-12] MEDS ORDERED: FAMOTIDINE 20MG VIAL IV ONE (20:38)
[2020-07-12] MEDS ORDERED: ONDANSETRON 4MG INJ ONE (20:38)
[2020-07-12 20:41] LABS: ALBUMIN 4.1 g/dL (3.5-5.0); BILIRUBIN,TOTAL 0.1 mg/dL (0.2-1.0); TOTAL PROTEIN, SERUM 7.3 g/dL (6.0-8.3)
[2020-07-12] MEDS: FAMOTIDINE 20MG VIAL IV SCH (21:00)
[2020-07-12] MEDS ORDERED: MORPHINE 2 MG SYG ONE (22:42)
[2020-07-12 23:23] LABS: INR 1.01 (0.85-1.15)
[2020-07-12 23:24] LABS: PARTIAL THROMBOPLASTIN TIME 27.2 SEC (26.3-35.5)
[2020-07-13] MEDS ORDERED: LIDOCAINE HCL 2% VISCOUS 15 ML UDCUP ONE (00:13)
[2020-07-13] MEDS ORDERED: MORPHINE 2 MG SYG ONE ×2 (03:06→09:22)
[2020-07-13] MEDS: 0.9%NACL 1000ML 1,000 ML IV SCH (05:30)
[2020-07-13 05:53] LABS: BASOPHILS % (AUTO) 0.4 % (0.0-5.0); LYMPHOCYTES % (AUTO) 17.2 % (21.0-51.0); MEAN CORPUSCULAR HEMOGLOBIN 26.4 pg (27.0-33.0); MEAN CORPUSCULAR HGB CONC 31.1 g/dL (32.0-36.0); MEAN CORPUSCULAR VOLUME 84.7 fL (79-99); PLATELET COUNT (AUTO) 353 K/uL (130-400); RED BLOOD CELL COUNT(AUTO) 4.13 MIL/uL (4.00-5.50); RED CELL DISTRIBUTION WIDTH 16.6 % (11.0-15.5); WHITE BLOOD COUNT (AUTO) 10.9 K/uL (4.8-10.8)
[2020-07-13 06:23] LABS: ALBUMIN 3.9 g/dL (3.5-5.0); BILIRUBIN,TOTAL 0.2 mg/dL (0.2-1.0); MAGNESIUM 2.2 mg/dL (1.80-2.40); POTASSIUM 3.4 mmol/L (3.5-5.1); TOTAL PROTEIN, SERUM 7.3 g/dL (6.0-8.3)
[2020-07-13] MEDS: FAMOTIDINE 20MG VIAL IV SCH ×2 (09:00→22:24)
[2020-07-13] MEDS ORDERED: POTASSIUM CHLORIDE 10MEQ/100ML 100 ML IV PRN (12:45)
[2020-07-13] MEDS ORDERED: LIDOCAINE HCL 1% 20 ML VIAL ONE (15:37)
[2020-07-13 16:45] VITALS: BP 152/86
[2020-07-13] MEDS: MORPHINE 2 MG SYG IVP PRN ×2 (18:15→22:45)
[2020-07-13] MEDS ORDERED: LINA290C PO (18:48)
[2020-07-13] MEDS ORDERED: QUET300T19 PO (18:48)
[2020-07-13] MEDS ORDERED: SENN-183 PO (18:48)
[2020-07-13] MEDS ORDERED: LEVE10006 PO (18:48)
[2020-07-13] MEDS ORDERED: ENOX60DI8 SQ (18:48)
[2020-07-13] MEDS ORDERED: TRAZ300T2 PO (18:48)
[2020-07-13] MEDS ORDERED: LAMO200T51 PO (18:48)
[2020-07-13] MEDS: ONDANSETRON 4MG INJ IV PRN (22:22)
[2020-07-13] MEDS: LEVOFLOXACIN 500 MG/D5W 100 ML 100 ML IV SCH (22:22)
[2020-07-13 23:35] VITALS: BP 143/86
[2020-07-14] MEDS ORDERED: POTASSIUM CHLORIDE 20MEQ/100ML 0 ML IV ONE (00:53)
[2020-07-14] MEDS ORDERED: LIDOCAINE HCL-MPF 1% 2ML VIAL ONE ×2 (00:54→03:42)
[2020-07-14] MEDS: LIDOCAINE HCL-MPF 1% 2ML VIAL IV PRN ×2 (00:58→03:54)
[2020-07-14] MEDS ORDERED: POTASSIUM CHLORIDE 10MEQ/100ML 100 ML IV ONE (01:02)
[2020-07-14] MEDS: 0.9%NACL 1000ML 1,000 ML IV SCH ×3 (01:30→21:30)
[2020-07-14] MEDS: MORPHINE 2 MG SYG IVP PRN ×2 (03:54→11:48)
[2020-07-14 04:04] VITALS: BP 156/81
[2020-07-14] MEDS: ONDANSETRON 4MG INJ IV PRN ×2 (04:19→11:48)
[2020-07-14 05:24] LABS: BASOPHILS % (AUTO) 0.2 % (0.0-5.0); EOSINOPHILS % (AUTO) 0.1 % (0.0-8.0); HEMATOCRIT 36.3 % (36-48); LYMPHOCYTES % (AUTO) 11.3 % (21.0-51.0); MEAN CORPUSCULAR HEMOGLOBIN 26.9 pg (27.0-33.0); MEAN CORPUSCULAR HGB CONC 31.7 g/dL (32.0-36.0); MEAN CORPUSCULAR VOLUME 84.8 fL (79-99); MONOCYTES % (AUTO) 4.6 % (3.0-13.0); NEUTROPHILS % (AUTO) 83.4 % (40.0-77.0); PLATELET COUNT (AUTO) 373 K/uL (130-400); RED BLOOD CELL COUNT(AUTO) 4.28 MIL/uL (4.00-5.50); RED CELL DISTRIBUTION WIDTH 16.6 % (11.0-15.5); WHITE BLOOD COUNT (AUTO) 8.4 K/uL (4.8-10.8)
[2020-07-14 05:26] LABS: CREATININE 0.8 mg/dL (0.5-1.5); POTASSIUM 3.8 mmol/L (3.5-5.1)
[2020-07-14 08:11] VITALS: BP 138/85
[2020-07-14] MEDS: FAMOTIDINE 20MG VIAL IV SCH ×2 (08:57→21:00)
[2020-07-14 11:49] VITALS: BP 144/85
[2020-07-14] MEDS: LEVETIRACETAM 500 MG TABLET PO SCH ×2 (12:09→20:28)
[2020-07-14 16:16] VITALS: BP 142/91
[2020-07-14 19:00] VITALS: BP 144/83
[2020-07-14] MEDS: LEVOFLOXACIN 500 MG/D5W 100 ML 100 ML IV SCH (19:30)
[2020-07-14] MEDS: MORPHINE 2 MG SYG IM PRN (20:26)
[2020-07-14 23:46] VITALS: BP 141/87
[2020-07-15] VITALS (13 sets, daily range): BP systolic 128–157; BP diastolic 68–99
[2020-07-15] MEDS: PROMETHAZINE HCL 25 MG/ML 1ML AMPULE IM PRN ×2 (00:36→22:41)
[2020-07-15] MEDS: ONDANSETRON 4MG INJ IV PRN ×2 (03:55→15:57)
[2020-07-15] MEDS: MORPHINE 2 MG SYG IM PRN (03:56)
[2020-07-15 04:11] LABS: BASOPHILS % (AUTO) 0.2 % (0.0-5.0); EOSINOPHILS % (AUTO) 0.5 % (0.0-8.0); HEMATOCRIT 34.9 % (36-48); LYMPHOCYTES % (AUTO) 15.8 % (21.0-51.0); MEAN CORPUSCULAR HEMOGLOBIN 26.1 pg (27.0-33.0); MEAN CORPUSCULAR HGB CONC 30.7 g/dL (32.0-36.0); MEAN CORPUSCULAR VOLUME 85.1 fL (79-99); MONOCYTES % (AUTO) 7.1 % (3.0-13.0); NEUTROPHILS % (AUTO) 75.9 % (40.0-77.0); PLATELET COUNT (AUTO) 324 K/uL (130-400); RED CELL DISTRIBUTION WIDTH 16.1 % (11.0-15.5); WHITE BLOOD COUNT (AUTO) 10.5 K/uL (4.8-10.8)
[2020-07-15 04:38] LABS: CREATININE 0.7 mg/dL (0.5-1.5); POTASSIUM 3.6 mmol/L (3.5-5.1)
[2020-07-15] MEDS ORDERED: HEPARIN 1,000 UNIT VIAL ONE (08:14)
[2020-07-15] MEDS ORDERED: LIDOCAINE HCL 1% MDV 50ML VIAL ONE (08:14)
[2020-07-15] MEDS ORDERED: METHYLNALTREXONE BROMIDE 12 MG/0.6 ML VIAL SQ SCH (09:00)
[2020-07-15] MEDS: ZOSYN 3.375GM+NS 50ML 50 ML IV SCH ×2 (11:11→17:34)
[2020-07-15] MEDS: LEVETIRACETAM 500 MG TABLET PO SCH ×2 (11:12→20:08)
[2020-07-15] MEDS: MORPHINE 2 MG SYG IVP PRN ×3 (11:15→22:41)
[2020-07-15] MEDS: 0.9%NACL 1000ML 1,000 ML IV SCH ×2 (11:15→17:30)
[2020-07-15] MEDS: FAMOTIDINE 20MG TAB PO SCH (20:08)
[2020-07-16] MEDS: ZOSYN 3.375GM+NS 50ML 50 ML IV SCH ×3 (01:31→20:31)
[2020-07-16] MEDS: 0.9%NACL 1000ML 1,000 ML IV SCH ×3 (01:31→23:30)
[2020-07-16 04:00] VITALS: BP 139/84
[2020-07-16 04:04] LABS: BASOPHILS % (AUTO) 0.3 % (0.0-5.0); EOSINOPHILS % (AUTO) 1.3 % (0.0-8.0); HEMATOCRIT 37.5 % (36-48); LYMPHOCYTES % (AUTO) 20.6 % (21.0-51.0); MEAN CORPUSCULAR HGB CONC 28.8 g/dL (32.0-36.0); MEAN CORPUSCULAR VOLUME 90.4 fL (79-99); MONOCYTES % (AUTO) 7.8 % (3.0-13.0); NEUTROPHILS % (AUTO) 69.6 % (40.0-77.0); PLATELET COUNT (AUTO) 278 K/uL (130-400); RED BLOOD CELL COUNT(AUTO) 4.15 MIL/uL (4.00-5.50); RED CELL DISTRIBUTION WIDTH 16.5 % (11.0-15.5); WHITE BLOOD COUNT (AUTO) 9.1 K/uL (4.8-10.8)
[2020-07-16 04:14] LABS: CREATININE 0.6 mg/dL (0.5-1.5); POTASSIUM 4.2 mmol/L (3.5-5.1)
[2020-07-16 08:08] VITALS: BP 137/90
[2020-07-16] MEDS: FAMOTIDINE 20MG TAB PO SCH ×2 (08:44→20:31)
[2020-07-16] MEDS: LEVETIRACETAM 500 MG TABLET PO SCH ×2 (08:44→20:31)
[2020-07-16] MEDS: MORPHINE 2 MG SYG IVP PRN ×3 (08:58→17:27)
[2020-07-16 11:36] VITALS: BP 140/85
[2020-07-16 16:00] VITALS: BP 130/91
[2020-07-16 20:00] VITALS: BP 125/85
[2020-07-16] MEDS ORDERED: POLYETHYLENE GLYCOL 3350 17 GM POWD.PACK PO SCH (20:30)
[2020-07-16] MEDS: METHYLNALTREXONE BROMIDE 12 MG/0.6 ML VIAL SQ SCH (20:31)
[2020-07-16 23:00] VITALS: BP 131/90
[2020-07-16] MEDS: MORPHINE 2 MG SYG IM PRN (23:22)
[2020-07-16] MEDS: ONDANSETRON 4MG INJ IV PRN (23:46)
[2020-07-17] MEDS: ZOSYN 3.375GM+NS 50ML 50 ML IV SCH ×3 (01:28→21:15)
[2020-07-17 04:00] VITALS: BP 112/77
[2020-07-17 08:00] VITALS: BP 136/85
[2020-07-17] MEDS: LEVETIRACETAM 500 MG TABLET PO SCH ×2 (09:06→20:07)
[2020-07-17] MEDS: FAMOTIDINE 20MG TAB PO SCH ×2 (09:06→20:07)
[2020-07-17] MEDS: MORPHINE 2 MG SYG IVP PRN ×3 (09:13→20:07)
[2020-07-17] MEDS: 0.9%NACL 1000ML 1,000 ML IV SCH ×2 (09:30→20:08)
[2020-07-17 12:00] VITALS: BP 117/69
[2020-07-17 16:00] VITALS: BP 126/78
[2020-07-17] MEDS: METHYLNALTREXONE BROMIDE 12 MG/0.6 ML VIAL SQ SCH (19:21)
[2020-07-17 20:00] VITALS: BP 152/96
[2020-07-17] MEDS: PROMETHAZINE HCL 25 MG/ML 1ML AMPULE IM PRN (20:10)
[2020-07-18] VITALS: BP 105/70
[2020-07-18 04:00] VITALS: BP 111/76
[2020-07-18] MEDS: PROMETHAZINE HCL 25 MG/ML 1ML AMPULE IM PRN ×2 (04:49→22:58)
[2020-07-18] MEDS: MORPHINE 2 MG SYG IVP PRN ×5 (04:49→22:59)
[2020-07-18] MEDS: 0.9%NACL 1000ML 1,000 ML IV SCH ×2 (05:41→14:05)
[2020-07-18] MEDS: ZOSYN 3.375GM+NS 50ML 50 ML IV SCH ×3 (05:41→20:26)
[2020-07-18 08:09] VITALS: BP 110/73
[2020-07-18] MEDS: FAMOTIDINE 20MG TAB PO SCH ×2 (08:30→20:26)
[2020-07-18] MEDS: LEVETIRACETAM 500 MG TABLET PO SCH ×2 (08:30→20:26)
[2020-07-18 15:03] VITALS: BP 99/61
[2020-07-18 16:50] VITALS: BP 107/70
[2020-07-18] MEDS: METHYLNALTREXONE BROMIDE 12 MG/0.6 ML VIAL SQ SCH (17:50)
[2020-07-18] MEDS: ONDANSETRON 4MG INJ IV PRN (18:41)
[2020-07-18 20:00] VITALS: BP 129/79
[2020-07-19] VITALS: BP_SYST 100; BP_SYST 94; BP_DIAS 59; BP_DIAS 65
[2020-07-19] MEDS: 0.9%NACL 1000ML 1,000 ML IV SCH (00:34)
[2020-07-19] MEDS: ZOSYN 3.375GM+NS 50ML 50 ML IV SCH ×3 (05:15→20:30)
[2020-07-19] MEDS: KETOROLAC 15MG/ML VIAL (15MG/ML) IV PRN ×2 (05:29→15:33)
[2020-07-19 07:00] VITALS: BP 111/72
[2020-07-19] MEDS: LEVETIRACETAM 500 MG TABLET PO SCH ×2 (09:26→20:30)
[2020-07-19] MEDS: FAMOTIDINE 20MG TAB PO SCH ×2 (09:26→20:30)
[2020-07-19] MEDS: METHYLNALTREXONE BROMIDE 12 MG/0.6 ML VIAL SQ SCH (10:23)
[2020-07-19] MEDS: MORPHINE 2 MG SYG IVP PRN (10:23)
[2020-07-19 11:30] VITALS: BP 126/82
[2020-07-19 16:00] VITALS: BP 138/87
[2020-07-19] MEDS: PROMETHAZINE HCL 25 MG/ML 1ML AMPULE IM PRN (18:07)
[2020-07-19 19:55] VITALS: BP 125/78
[2020-07-19] MEDS: ALPRAZOLAM 1 MG TAB PO SCH (20:30)
[2020-07-19] MEDS: FERROUS SULFATE 325 MG TABLET.DR PO SCH (20:30)
[2020-07-19] MEDS ORDERED: TRAZODONE HCL 100 MG TABLET PO SCH (21:00)
[2020-07-19] MEDS ORDERED: FERROUS SULFATE 325 MG PO SCH (21:00)
[2020-07-19] MEDS ORDERED: NON-FORMULARY MEDICATION 1 EACH (Alprazolam 2 MG) PO SCH (21:00)
[2020-07-19] MEDS ORDERED: NON-FORMULARY MEDICATION 1 EACH (Quetiapine Fumarate 300 MG) PO SCH (21:00)
[2020-07-19] MEDS ORDERED: NON-FORMULARY MEDICATION 1 EACH (Trazodone HCl 300 MG) PO SCH (21:00)
[2020-07-19] MEDS ORDERED: SENNOSIDES 8.6 MG TABLET PO SCH (21:00)
[2020-07-19] MEDS ORDERED: NON-FORMULARY MEDICATION 1 EACH (Levetiracetam 1,000 MG) PO SCH (21:00)
[2020-07-19] MEDS ORDERED: QUETIAPINE FUMARATE 100 MG TAB PO SCH (21:00)
[2020-07-19] MEDS: KETOROLAC 30MG VIAL (30MG/ML) IV PRN (21:29)
[2020-07-19 23:35] VITALS: BP 115/79
[2020-07-20 04:00] VITALS: BP 131/86
[2020-07-20] MEDS: PROMETHAZINE HCL 25 MG/ML 1ML AMPULE IM PRN (05:10)
[2020-07-20] MEDS: ZOSYN 3.375GM+NS 50ML 50 ML IV SCH ×2 (05:10→13:49)
[2020-07-20] MEDS: KETOROLAC 30MG VIAL (30MG/ML) IV PRN ×3 (05:11→17:59)
[2020-07-20 07:00] VITALS: BP 130/93
[2020-07-20] MEDS ORDERED: FOLIC ACID 1 MG TABLET PO SCH (09:00)
[2020-07-20] MEDS ORDERED: LAMOTRIGINE 100 MG TABLET PO SCH (09:00)
[2020-07-20] MEDS ORDERED: LAMOTRIGINE 200 MG PO SCH (09:00)
[2020-07-20] MEDS: FAMOTIDINE 20MG TAB PO SCH (09:46)
[2020-07-20] MEDS: ALPRAZOLAM 1 MG TAB PO SCH ×2 (09:46→13:49)
[2020-07-20] MEDS: LEVETIRACETAM 500 MG TABLET PO SCH (09:46)
[2020-07-20] MEDS: FERROUS SULFATE 325 MG TABLET.DR PO SCH (09:47)
[2020-07-20] MEDS: METHYLNALTREXONE BROMIDE 12 MG/0.6 ML VIAL SQ SCH (09:58)
[2020-07-20 11:30] VITALS: BP 103/73
[2020-07-20 16:33] VITALS: BP 110/77
== END 2020-07-20 18:52 | DRG 247 ==
LOC: EDH 16:48 → EDHIP 16:49 → 4BH 07-13 17:01
PROVIDERS: ADMIT Internal Medicine; ATTEND Internal Medicine
PROC: 0D9670Z Drainage of Stomach with Drainage Device, Via Natural or Artificial Opening (ICD-10-PCS; principal; 2020-07-14)
PROC: B5181ZA Fluoroscopy of Superior Vena Cava using Low Osmolar Contrast, Guidance (ICD-10-PCS; 2020-07-15)
PROC: 02HV33Z Insertion of Infusion Device into Superior Vena Cava, Percutaneous Approach (ICD-10-PCS; 2020-07-15)
PROC: B548ZZA Ultrasonography of Superior Vena Cava, Guidance (ICD-10-PCS; 2020-07-15)
DX: K56.609 Unspecified intestinal obstruction, unspecified as to partial versus complete obstruction (principal); K86.1 Other chronic pancreatitis; N39.0 Urinary tract infection, site not specified; E87.6 Hypokalemia; F32.9 Major depressive disorder, single episode, unspecified; B96.89 Other specified bacterial agents as the cause of diseases classified elsewhere; Z93.3 Colostomy status; Q05.9 Spina bifida, unspecified; Z83.3 Family history of diabetes mellitus; Z82.49 Family history of ischemic heart disease and other diseases of the circulatory system; Z82.0 Family history of epilepsy and other diseases of the nervous system; Z16.24 Resistance to multiple antibiotics; Z80.49 Family history of malignant neoplasm of other genital organs; G40.909 Epilepsy, unspecified, not intractable, without status epilepticus; F41.9 Anxiety disorder, unspecified; Z82.5 Family history of asthma and other chronic lower respiratory diseases; Z98.2 Presence of cerebrospinal fluid drainage device; Z82.3 Family history of stroke; R33.9 Retention of urine, unspecified; Z20.822 Contact with and (suspected) exposure to COVID-19
CPT/HCPCS: 36415; 36558; 71045; 74018; 74176; 77001; 80048; 80053; 80305; 81001; 82150; 83690; 83735; 84484; 85025; 85610; 85730; 87040; 87077; 87088; 87186; 87426; 93005; C1751; C1894; G0378; J1644; J1885; J1956; J2212; J2405; J2543; J2550; J3480; J3490; J7030

== ENCOUNTER 2020-10-16 05:04 | Emergency (ER) | payer MEDICAID ==
[~2020-10-16] VITALS: Ht 147.3 cm; Wt 81.6 kg
[~2020-10-16 05:04] MED LIST changes: -ACET1TAB12 PO; -AMYL1CAP PO; -DOCU-282 PO; -FAMO-290 PO; +LAMO200T51 PO; +LEVE10006 PO; +LINA290C PO; -MACR100 PO; -MIRT-22 PO; -OLAN20TA35 PO; +QUET300T18 PO; +SENN-183 PO; -TOPI100T37 PO; +TRAZ300T2 PO
[2020-10-16] MEDS ORDERED: ONDANSETRON 4MG INJ IVP ONE (06:00)
[2020-10-16 06:29] LABS: BASOPHILS % (AUTO) 0.3 % (0.0-5.0); EOSINOPHILS % (AUTO) 4.2 % (0.0-8.0); HEMATOCRIT 34.9 % (36-48); LYMPHOCYTES % (AUTO) 28.7 % (21.0-51.0); MEAN CORPUSCULAR HEMOGLOBIN 27.1 pg (27.0-33.0); MEAN CORPUSCULAR HGB CONC 30.7 g/dL (32.0-36.0); MEAN CORPUSCULAR VOLUME 88.4 fL (79-99); MONOCYTES % (AUTO) 6.5 % (3.0-13.0); NEUTROPHILS % (AUTO) 59.9 % (40.0-77.0); PLATELET COUNT (AUTO) 322 K/uL (130-400); RED BLOOD CELL COUNT(AUTO) 3.95 MIL/uL (4.00-5.50); RED CELL DISTRIBUTION WIDTH 14.7 % (11.0-15.5); WHITE BLOOD COUNT (AUTO) 7.8 K/uL (4.8-10.8)
[2020-10-16 06:31] LABS: APPEARANCE,URINE CLOUDY (CLEAR); BILIRUBIN,URINE NEGATIVE (NEGATIVE); COLOR,URINE YELLOW (YELLOW); GLUCOSE, URINE (UA) NEGATIVE (NEGATIVE); KETONES,URINE NEGATIVE (NEGATIVE); LEUKOCYTE ESTERASE ,URINE TRACE (NEGATIVE); NITRATE,URINE POSITIVE (NEGATIVE); OCCULT BLOOD,URINE TRACE-LYSED (NEGATIVE); PROTEIN,URINE 30 mg/dL (NEGATIVE); UROBILINOGEN,URINE 0.2 mg/dL (0.2-1.0)
[2020-10-16 06:45] LABS: BACTERIA,URINE Moderate /HPF (None Seen); MUCUS,URINE Rare LPF (None Seen); RBC,URINE 0-1 /HPF (0-1); SQUAMOUS EPITHELIAL CELL,UR Few /HPF (0-2)
[2020-10-16 07:21] LABS: ALBUMIN 3.8 g/dL (3.5-5.0); BILIRUBIN,TOTAL 0.2 mg/dL (0.2-1.0); CREATININE 0.7 mg/dL (0.5-1.5); POTASSIUM 3.3 mmol/L (3.5-5.1); TOTAL PROTEIN, SERUM 7.2 g/dL (6.0-8.3)
[2020-10-16] MEDS ORDERED: FAMOTIDINE 20MG VIAL IV ONE (07:30)
[2020-10-16] MEDS ORDERED: DiphenhydrAMINE HCL 50 MG/ML VIAL IV ONE (07:30)
[2020-10-16] MEDS ORDERED: METOCLOPRAMIDE 10 MG/2 ML VIAL IVP ONE (07:30)
[2020-10-16] MEDS ORDERED: 0.9%NACL 1000ML 1,000 ML IV ONE (07:30)
[2020-10-16] MEDS ORDERED: PANTOPRAZOLE 40 MG/VIAL IVP SCH (07:30)
[2020-10-16 07:57] VITALS: BP 157/113
[2020-10-16] MEDS ORDERED: NITROFURANTOIN MONOHYD/M-CRYST 100 MG CAPSULE PO SCH (08:30)
[2020-10-16] MEDS ORDERED: DICY20TA2 PO (08:39)
[2020-10-16] MEDS ORDERED: PANT40TA54 PO (08:39)
[2020-10-16] MEDS ORDERED: METO-296 PO (08:39)
[2020-10-16] MEDS ORDERED: MACR100 PO (08:39)
[2020-10-16] MEDS ORDERED: HEPARIN PF LOCK 500 UNIT/5ML IV ONE (10:01)
[2020-10-16 10:09] VITALS: BP 140/91
== END 2020-10-16 10:11 | disposition home or self-care (01) ==
LOC: EDH 05:11
DX: R10.13 Epigastric pain (principal); R82.71 Bacteriuria; R11.2 Nausea with vomiting, unspecified; Q05.9 Spina bifida, unspecified; Z79.899 Other long term (current) drug therapy
CPT/HCPCS: 36415; 80053; 81001; 83690; 85025; 87077; 87088; 87186; 96374; 96375; 99284; J1200; J1642; J2765; J7030; S0028; S0164; C9113; J3490

== ENCOUNTER 2021-01-05 18:56 | Emergency (ER) | payer MEDICAID ==
[~2021-01-05] VITALS: Ht 147.3 cm; Wt 68.0 kg
[~2021-01-05 18:56] MED LIST changes: +DICY20TA2 PO; +MACR100 PO; +METO-296 PO; +PANT40TA54 PO; -QUET300T18 PO; +QUET300T19 PO
[2021-01-05 19:40] LABS: APPEARANCE,URINE CLOUDY (CLEAR); BILIRUBIN,URINE NEGATIVE (NEGATIVE); COLOR,URINE YELLOW (YELLOW); GLUCOSE, URINE (UA) NEGATIVE (NEGATIVE); KETONES,URINE NEGATIVE (NEGATIVE); LEUKOCYTE ESTERASE ,URINE SMALL (NEGATIVE); NITRATE,URINE POSITIVE (NEGATIVE); OCCULT BLOOD,URINE NEGATIVE (NEGATIVE); PH,URINE 6.5 (5.0-8.0); PROTEIN,URINE NEGATIVE (NEGATIVE); UROBILINOGEN,URINE 0.2 mg/dL (0.2-1.0)
[2021-01-05 19:51] LABS: BACTERIA,URINE Moderate /HPF (None Seen); MUCUS,URINE Few LPF (None Seen); SQUAMOUS EPITHELIAL CELL,UR Few /HPF (0-2)
[2021-01-05] MEDS ORDERED: ZOSYN 3.375GM+NS 50ML 3.38 GM in 0.9%NACL 50ML 50 ML IV STA (20:12)
[2021-01-05] MEDS ORDERED: ONDANSETRON 4MG INJ IVP ONE (20:30)
[2021-01-05] MEDS ORDERED: ZOSYN 3.375GM +NS 50ML IV ONE (20:30)
[2021-01-05] MEDS ORDERED: MORPHINE 2 MG SYG IVP ONE (20:30)
[2021-01-05] MEDS ORDERED: 0.9%NACL 1000ML 1,000 ML IV ONE (20:30)
[2021-01-05 20:34] LABS: BASOPHILS % (AUTO) 0.3 % (0.0-5.0); EOSINOPHILS % (AUTO) 1.6 % (0.0-8.0); HEMATOCRIT 28.5 % (36-48); LYMPHOCYTES % (AUTO) 16.5 % (21.0-51.0); MEAN CORPUSCULAR HEMOGLOBIN 25.1 pg (27.0-33.0); MEAN CORPUSCULAR HGB CONC 30.5 g/dL (32.0-36.0); MEAN CORPUSCULAR VOLUME 82.4 fL (79-99); MONOCYTES % (AUTO) 7.1 % (3.0-13.0); PLATELET COUNT (AUTO) 250 K/uL (130-400); RED BLOOD CELL COUNT(AUTO) 3.46 MIL/uL (4.00-5.50); RED CELL DISTRIBUTION WIDTH 14.5 % (11.0-15.5); WHITE BLOOD COUNT (AUTO) 6.8 K/uL (4.8-10.8)
[2021-01-05 21:03] LABS: CREATININE 0.7 mg/dL (0.5-1.5); POTASSIUM 3.2 mmol/L (3.5-5.1)
[2021-01-05 21:08] LABS: ALBUMIN 3.3 g/dL (3.5-5.0); BILIRUBIN,TOTAL 0.2 mg/dL (0.2-1.0); TOTAL PROTEIN, SERUM 6.9 g/dL (6.0-8.3)
[2021-01-05] MEDS ORDERED: AMOX-429 PO (22:20)
[2021-01-05 22:24] VITALS: BP 114/76
== END 2021-01-05 22:41 | disposition home or self-care (01) ==
LOC: EDH 18:56
DX: N39.0 Urinary tract infection, site not specified (principal); N31.9 Neuromuscular dysfunction of bladder, unspecified; Q05.9 Spina bifida, unspecified; Z79.899 Other long term (current) drug therapy; Z90.49 Acquired absence of other specified parts of digestive tract; Z98.2 Presence of cerebrospinal fluid drainage device
CPT/HCPCS: 36415; 80053; 81001; 83605; 84703; 85025; 87040 ×2; 87077 ×3; 87088; 87186 ×3; 96365; 96375; 99284; J2405; J2543; J7030

== ENCOUNTER 2021-01-30 09:54 | Emergency (ER) | payer MEDICAID ==
[~2021-01-30] VITALS: Ht 147.3 cm; Wt 59.0 kg
[~2021-01-30 09:54] MED LIST changes: +AMOX-429 PO
[2021-01-30 10:53] LABS: BASOPHILS % (AUTO) 0.2 % (0.0-5.0); EOSINOPHILS % (AUTO) 1.1 % (0.0-8.0); HEMATOCRIT 29.9 % (36-48); LYMPHOCYTES % (AUTO) 7.1 % (21.0-51.0); MEAN CORPUSCULAR HEMOGLOBIN 24.5 pg (27.0-33.0); MEAN CORPUSCULAR HGB CONC 30.4 g/dL (32.0-36.0); MEAN CORPUSCULAR VOLUME 80.4 fL (79-99); MONOCYTES % (AUTO) 3.9 % (3.0-13.0); NEUTROPHILS % (AUTO) 87.2 % (40.0-77.0); PLATELET COUNT (AUTO) 283 K/uL (130-400); RED BLOOD CELL COUNT(AUTO) 3.72 MIL/uL (4.00-5.50); RED CELL DISTRIBUTION WIDTH 14.7 % (11.0-15.5); WHITE BLOOD COUNT (AUTO) 10.6 K/uL (4.8-10.8)
[2021-01-30 10:57] LABS: APPEARANCE,URINE CLOUDY (CLEAR); BILIRUBIN,URINE NEGATIVE (NEGATIVE); COLOR,URINE YELLOW (YELLOW); GLUCOSE, URINE (UA) NEGATIVE (NEGATIVE); KETONES,URINE NEGATIVE (NEGATIVE); LEUKOCYTE ESTERASE ,URINE NEGATIVE (NEGATIVE); NITRATE,URINE POSITIVE (NEGATIVE); OCCULT BLOOD,URINE SMALL (NEGATIVE); PH,URINE 6.5 (5.0-8.0); PROTEIN,URINE NEGATIVE (NEGATIVE); UROBILINOGEN,URINE 0.2 mg/dL (0.2-1.0)
[2021-01-30 11:04] LABS: ALBUMIN 3.3 g/dL (3.5-5.0); BACTERIA,URINE Many /HPF (None Seen); CREATININE 0.7 mg/dL (0.5-1.5); SQUAMOUS EPITHELIAL CELL,UR Few /HPF (0-2)
[2021-01-30 11:08] LABS: BILIRUBIN,TOTAL 0.3 mg/dL (0.2-1.0); TOTAL PROTEIN, SERUM 6.5 g/dL (6.0-8.3)
[2021-01-30 11:11] LABS: POTASSIUM 2.8 mmol/L (3.5-5.1)
[2021-01-30] MEDS ORDERED: ONDANSETRON 4MG INJ IVP SCH (11:30)
[2021-01-30] MEDS ORDERED: 0.9%NACL 1000ML 500 ML IV SCH (11:30)
[2021-01-30] MEDS ORDERED: MORPHINE 2 MG SYG IVP SCH (11:30)
[2021-01-30 11:41] LABS: AMPHET/METH SCREEN,URINE NEGATIVE (NEGATIVE); BARBITURATE SCREEN, URINE NEGATIVE (NEGATIVE); BENZODIAZEPINES SCREEN,URINE POSITIVE (NEGATIVE); CANNABINOID SCREEN,URINE NEGATIVE (NEGATIVE); COCAINE SCREEN,URINE NEGATIVE (NEGATIVE); OPIATE SCREEN,URINE NEGATIVE (NEGATIVE); PHENCYCLIDINE SCREEN,URINE NEGATIVE (NEGATIVE)
[2021-01-30] MEDS ORDERED: CEFTRIAXONE 1G VIAL IVP SCH (13:00)
[2021-01-30] MEDS ORDERED: CEPH500B PO (13:20)
[2021-01-30 13:32] VITALS: BP 150/100
[2021-01-30] MEDS ORDERED: POTASSIUM BICARB/CIT AC 25 MEQ TABLET.EFF PO ONE (13:45)
== END 2021-01-30 14:17 | disposition home or self-care (01) ==
LOC: EDH 09:54
DX: N39.0 Urinary tract infection, site not specified (principal); Z79.899 Other long term (current) drug therapy; Z90.49 Acquired absence of other specified parts of digestive tract; Z98.2 Presence of cerebrospinal fluid drainage device
CPT/HCPCS: 36415; 71045; 80053; 80305; 81001; 81025; 82150; 83690; 85025; 87077; 87088; 87186; 96361; 96374; 96375; 99284; J0696; J2405; J7030

== ENCOUNTER 2021-06-05 11:47 | Emergency (ER) | payer MEDICAID ==
[~2021-06-05] VITALS: Ht 152.4 cm; Wt 59.0 kg
[~2021-06-05 11:47] MED LIST changes: +CEPH500B PO
[2021-06-05] MEDS ORDERED: HEPARIN PF LOCK 500 UNIT/5ML IV ONE (12:04)
[2021-06-05] MEDS ORDERED: HEPARIN PF LOCK 500 UNIT/5ML IV SCH (12:30)
== END 2021-06-05 12:21 | disposition home or self-care (01) ==
LOC: EDH 11:47
DX: T82.594A Other mechanical complication of infusion catheter, initial encounter (principal); Z90.49 Acquired absence of other specified parts of digestive tract; Z87.440 Personal history of urinary (tract) infections; Z79.899 Other long term (current) drug therapy; Z98.2 Presence of cerebrospinal fluid drainage device; Y83.8 Other surgical procedures as the cause of abnormal reaction of the patient, or of later complication, without mention of misadventure at the time of the procedure; Y92.89 Other specified places as the place of occurrence of the external cause
CPT/HCPCS: 99285; J1642

== ENCOUNTER 2021-08-30 18:22 | Emergency (ER) | payer MEDICAID ==
[~2021-08-30] VITALS: Ht 147.3 cm; Wt 60.8 kg
[2021-08-30 19:22] LABS: APPEARANCE,URINE Cloudy (CLEAR); BILIRUBIN,URINE Negative (NEGATIVE); COLOR,URINE Yellow (YELLOW); GLUCOSE, URINE (UA) Negative (NEGATIVE); KETONES,URINE Negative (NEGATIVE); LEUKOCYTE ESTERASE ,URINE Small (NEGATIVE); NITRATE,URINE Negative (NEGATIVE); OCCULT BLOOD,URINE Large (NEGATIVE); PROTEIN,URINE Negative (NEGATIVE); UROBILINOGEN,URINE 0.2 mg/dL (0.2-1.0)
[2021-08-30 19:25] LABS: HCG,QUAL RESULT NEGATIVE (NEGATIVE)
[2021-08-30] MEDS ORDERED: ACETAMINOPHEN 500 MG TABLET PO ONE (19:30)
[2021-08-30] MEDS ORDERED: KETOROLAC 30MG VIAL (30MG/ML) ONE (19:40)
[2021-08-30 19:42] LABS: BACTERIA,URINE Rare /HPF (None Seen); MUCUS,URINE Few LPF (None Seen); SQUAMOUS EPITHELIAL CELL,UR Moderate /HPF (0-2)
[2021-08-30 19:53] LABS: BASOPHILS % (AUTO) 0.2 % (0.0-5.0); HEMATOCRIT 39.2 % (36-48); MEAN CORPUSCULAR HGB CONC 32.1 g/dL (32.0-36.0); MONOCYTES % (AUTO) 5.1 % (3.0-13.0); NEUTROPHILS % (AUTO) 77.5 % (40.0-77.0); PLATELET COUNT (AUTO) 204 K/uL (130-400); RED BLOOD CELL COUNT(AUTO) 4.84 MIL/uL (4.00-5.50); RED CELL DISTRIBUTION WIDTH 18.4 % (11.0-15.5)
[2021-08-30] MEDS ORDERED: KETOROLAC 30MG VIAL (30MG/ML) IVP ONE (20:00)
[2021-08-30 20:04] LABS: AMPHET/METH SCREEN,URINE NEGATIVE (NEGATIVE); BARBITURATE SCREEN, URINE NEGATIVE (NEGATIVE); BENZODIAZEPINES SCREEN,URINE POSITIVE (NEGATIVE); CANNABINOID SCREEN,URINE POSITIVE (NEGATIVE); COCAINE SCREEN,URINE NEGATIVE (NEGATIVE); OPIATE SCREEN,URINE NEGATIVE (NEGATIVE); PHENCYCLIDINE SCREEN,URINE NEGATIVE (NEGATIVE)
[2021-08-30 20:13] LABS: ALBUMIN 3.8 g/dL (3.5-5.0); BILIRUBIN,TOTAL 0.2 mg/dL (0.2-1.0); CREATININE 0.6 mg/dL (0.5-1.5); TOTAL PROTEIN, SERUM 6.9 g/dL (6.0-8.3)
[2021-08-30 20:15] LABS: POTASSIUM 2.7 mmol/L (3.5-5.1)
[2021-08-30] MEDS ORDERED: ONDANSETRON 4MG INJ IVP ONE ×2 (20:30→21:00)
[2021-08-30] MEDS ORDERED: POTASSIUM BICARB/CIT AC 25 MEQ TABLET.EFF PO ONE (20:30)
[2021-08-30] MEDS ORDERED: POTASSIUM CHLORIDE 10MEQ/100ML 10 MEQ/100 ML ML IV SCH (20:30)
[2021-08-30] MEDS ORDERED: MORPHINE 4 MG SYG IVP ONE (21:00)
[2021-08-30] MEDS ORDERED: MORPHINE 2 MG SYG ONE (23:17)
[2021-08-31] MEDS ORDERED: MORPHINE 2 MG SYG ONE (02:18)
[2021-08-31] MEDS ORDERED: MORPHINE 2 MG SYG IVP ONE ×2 (02:30)
[2021-08-31 02:37] VITALS: BP 130/84
[2021-08-31] MEDS ORDERED: POTASSIUM BICARB/CIT AC 25 MEQ TABLET.EFF ONE (02:43)
[2021-08-31] MEDS ORDERED: POTASSIUM BICARB/CIT AC 25 MEQ TABLET.EFF PO ONE (03:00)
== END 2021-08-31 04:13 | disposition short-term general hospital (02) ==
LOC: EDH 18:22
DX: K85.90 Acute pancreatitis without necrosis or infection, unspecified (principal); Z20.822 Contact with and (suspected) exposure to COVID-19; Z79.899 Other long term (current) drug therapy; Z90.89 Acquired absence of other organs; Z90.49 Acquired absence of other specified parts of digestive tract; Z98.890 Other specified postprocedural states
CPT/HCPCS: 36415 ×2; 74176; 80053; 80305; 81001; 81025; 83605; 83690; 83735; 84132; 84478; 85025; 87635; 96374; 96375; 96376 ×2; 99285; C9803; J1885; J2270; J2405 ×2

== ENCOUNTER 2021-10-13 00:40 | Emergency (ER) | payer MEDICAID ==
[~2021-10-13] VITALS: Ht 147.3 cm; Wt 68.0 kg
[2021-10-13] MEDS ORDERED: 0.9%NACL 1000ML 1,000 ML IV ONE (01:30)
[2021-10-13] MEDS ORDERED: MORPHINE 4 MG SYG IVP ONE (01:30)
[2021-10-13] MEDS ORDERED: ONDANSETRON 4MG INJ IVP ONE (01:30)
[2021-10-13] MEDS ORDERED: KETOROLAC 30MG VIAL (30MG/ML) IVP ONE (01:30)
[2021-10-13 02:19] LABS: APPEARANCE,URINE CLEAR (CLEAR); BILIRUBIN,URINE NEGATIVE (NEGATIVE); COLOR,URINE YELLOW (YELLOW); GLUCOSE, URINE (UA) NEGATIVE (NEGATIVE); KETONES,URINE NEGATIVE (NEGATIVE); LEUKOCYTE ESTERASE ,URINE NEGATIVE (NEGATIVE); NITRATE,URINE NEGATIVE (NEGATIVE); OCCULT BLOOD,URINE NEGATIVE (NEGATIVE); PROTEIN,URINE NEGATIVE (NEGATIVE); UROBILINOGEN,URINE 0.2 mg/dL (0.2-1.0)
[2021-10-13 02:21] LABS: BASOPHILS % (AUTO) 0.2 % (0.0-5.0); EOSINOPHILS % (AUTO) 2.2 % (0.0-8.0); HEMATOCRIT 37.1 % (36-48); LYMPHOCYTES % (AUTO) 28.5 % (21.0-51.0); MEAN CORPUSCULAR HEMOGLOBIN 26.7 pg (27.0-33.0); MEAN CORPUSCULAR VOLUME 86.1 fL (79-99); MONOCYTES % (AUTO) 5.7 % (3.0-13.0); PLATELET COUNT (AUTO) 170 K/uL (130-400); RED BLOOD CELL COUNT(AUTO) 4.31 MIL/uL (4.00-5.50); RED CELL DISTRIBUTION WIDTH 15.9 % (11.0-15.5); WHITE BLOOD COUNT (AUTO) 9.2 K/uL (4.8-10.8)
[2021-10-13 02:23] LABS: HCG,QUALITATIVE URINE NEGATIVE (NEGATIVE)
[2021-10-13] MEDS ORDERED: DiphenhydrAMINE HCL 50 MG/ML VIAL ONE (02:24)
[2021-10-13 02:31] LABS: CREATININE 0.7 mg/dL (0.5-1.5); POTASSIUM 4.4 mmol/L (3.5-5.1)
[2021-10-13 02:35] LABS: ALBUMIN 3.9 g/dL (3.5-5.0); TOTAL PROTEIN, SERUM 7.4 g/dL (6.0-8.3)
[2021-10-13 03:21] VITALS: BP 131/83
[2021-10-13] MEDS ORDERED: ACET-2079 PO (03:21)
== END 2021-10-13 03:31 | disposition home or self-care (01) ==
LOC: EDH 00:40
DX: R10.13 Epigastric pain (principal); R19.7 Diarrhea, unspecified; Z79.899 Other long term (current) drug therapy; Z98.890 Other specified postprocedural states
CPT/HCPCS: 99284; 96374; 96375; 96361; 80053; 83690; 85025; 81003; 81025; 36415; J1200; J7030; J2405; J2270; J1885

== ENCOUNTER 2021-12-06 01:40 | Emergency (ER) | payer MEDICAID ==
[~2021-12-06] VITALS: Ht 147.3 cm; Wt 64.9 kg
[~2021-12-06 01:40] MED LIST changes: +ACET-2079 PO
[2021-12-06 01:41] VITALS: BP 139/85
[2021-12-06 02:33] LABS: BASOPHILS % (AUTO) 0.3 % (0.0-5.0); HEMATOCRIT 32.6 % (36-48); LYMPHOCYTES % (AUTO) 33.6 % (21.0-51.0); MEAN CORPUSCULAR HEMOGLOBIN 27.5 pg (27.0-33.0); MEAN CORPUSCULAR HGB CONC 32.2 g/dL (32.0-36.0); MEAN CORPUSCULAR VOLUME 85.3 fL (79-99); MONOCYTES % (AUTO) 7.9 % (3.0-13.0); NEUTROPHILS % (AUTO) 54.7 % (40.0-77.0); PLATELET COUNT (AUTO) 382 K/uL (130-400); RED BLOOD CELL COUNT(AUTO) 3.82 MIL/uL (4.00-5.50); RED CELL DISTRIBUTION WIDTH 12.7 % (11.0-15.5); WHITE BLOOD COUNT (AUTO) 8.8 K/uL (4.8-10.8)
[2021-12-06 02:37] LABS: APPEARANCE,URINE CLEAR (CLEAR); BILIRUBIN,URINE NEGATIVE (NEGATIVE); COLOR,URINE COLORLESS (YELLOW); GLUCOSE, URINE (UA) NEGATIVE (NEGATIVE); KETONES,URINE NEGATIVE (NEGATIVE); LEUKOCYTE ESTERASE ,URINE 75 Leu/uL (NEGATIVE); NITRATE,URINE NEGATIVE (NEGATIVE); OCCULT BLOOD,URINE NEGATIVE (NEGATIVE); PROTEIN,URINE NEGATIVE (NEGATIVE); UROBILINOGEN,URINE 0.2 mg/dL (0.2-1.0)
[2021-12-06 02:41] LABS: AMPHET/METH SCREEN,URINE NEGATIVE (NEGATIVE); BARBITURATE SCREEN, URINE NEGATIVE (NEGATIVE); BENZODIAZEPINES SCREEN,URINE POSITIVE (NEGATIVE); CANNABINOID SCREEN,URINE POSITIVE (NEGATIVE); COCAINE SCREEN,URINE NEGATIVE (NEGATIVE); PHENCYCLIDINE SCREEN,URINE NEGATIVE (NEGATIVE)
[2021-12-06 02:47] LABS: CREATININE 1.1 mg/dL (0.5-1.5); POTASSIUM 3.2 mmol/L (3.5-5.1)
[2021-12-06 02:51] LABS: ALBUMIN 4.2 g/dL (3.5-5.0); BACTERIA,URINE MOD /HPF (None Seen); RBC,URINE 0-1 /HPF (0-1); SQUAMOUS EPITHELIAL CELL,UR FEW /HPF (0-2); TOTAL PROTEIN, SERUM 7.6 g/dL (6.0-8.3)
== END 2021-12-06 02:48 | disposition left against medical advice (07) ==
LOC: EDH 01:40
DX: R10.9 Unspecified abdominal pain (principal); R11.2 Nausea with vomiting, unspecified; Z53.21 Procedure and treatment not carried out due to patient leaving prior to being seen by health care provider
CPT/HCPCS: 36415; 80053; 80305; 81001; 83690; 85025; 87077; 87088; 87186

== ENCOUNTER 2022-01-08 00:01 | Emergency (ER) | payer MEDICAID ==
[~2022-01-08] VITALS: Ht 147.3 cm; Wt 69.4 kg
[2022-01-08 01:28] LABS: BASOPHILS % (AUTO) 0.1 % (0.0-5.0); EOSINOPHILS % (AUTO) 3.8 % (0.0-8.0); HEMATOCRIT 26.7 % (36-48); LYMPHOCYTES % (AUTO) 29.1 % (21.0-51.0); MEAN CORPUSCULAR HEMOGLOBIN 25.9 pg (27.0-33.0); MEAN CORPUSCULAR HGB CONC 31.1 g/dL (32.0-36.0); MEAN CORPUSCULAR VOLUME 83.4 fL (79-99); MONOCYTES % (AUTO) 6.8 % (3.0-13.0); NEUTROPHILS % (AUTO) 59.6 % (40.0-77.0); PLATELET COUNT (AUTO) 276 K/uL (130-400); RED CELL DISTRIBUTION WIDTH 13.9 % (11.0-15.5)
[2022-01-08 01:33] LABS: APPEARANCE,URINE CLEAR (CLEAR); BILIRUBIN,URINE NEGATIVE (NEGATIVE); COLOR,URINE COLORLESS (YELLOW); GLUCOSE, URINE (UA) NEGATIVE (NEGATIVE); KETONES,URINE NEGATIVE (NEGATIVE); LEUKOCYTE ESTERASE ,URINE NEGATIVE Leu/uL (NEGATIVE); NITRATE,URINE NEGATIVE (NEGATIVE); OCCULT BLOOD,URINE NEGATIVE (NEGATIVE); PROTEIN,URINE NEGATIVE (NEGATIVE); UROBILINOGEN,URINE 0.2 mg/dL (0.2-1.0)
[2022-01-08 01:34] LABS: HCG,QUALITATIVE URINE NEGATIVE (NEGATIVE)
[2022-01-08 01:45] LABS: CREATININE 0.8 mg/dL (0.5-1.5); POTASSIUM 3.3 mmol/L (3.5-5.1)
[2022-01-08 01:55] LABS: ALBUMIN 3.6 g/dL (3.5-5.0); TOTAL PROTEIN, SERUM 6.4 g/dL (6.0-8.3)
[2022-01-08] MEDS ORDERED: MORPHINE 2 MG SYG IVP ONE (02:00)
[2022-01-08] MEDS ORDERED: IOHEXOL 350 MG/ML 100ML INFUS..BTL IV ONE (02:04)
[2022-01-08 02:44] VITALS: BP 126/71
[2022-01-08] MEDS ORDERED: DOCU-116 PO (03:09)
[2022-01-08] MEDS ORDERED: LACTULOSE 20 GM/30 ML UDCUP ONE (03:15)
[2022-01-08] MEDS ORDERED: LACTULOSE 20 GM/30 ML UDCUP PR SCH (03:30)
== END 2022-01-08 03:30 | disposition home or self-care (01) ==
LOC: EDH 00:01
DX: R10.84 Generalized abdominal pain (principal); R11.2 Nausea with vomiting, unspecified; Z79.899 Other long term (current) drug therapy; Z90.49 Acquired absence of other specified parts of digestive tract; Z98.890 Other specified postprocedural states
CPT/HCPCS: 99285; 74177; 96374; 71045; 84484; 80053; 84702; 83690; 85025; 81003; 81025; 36415; 93005; Q9967

== ENCOUNTER 2022-01-10 11:24 | Emergency (ER) | payer MEDICAID ==
[~2022-01-10] VITALS: Ht 147.3 cm; Wt 69.4 kg
[~2022-01-10 11:24] MED LIST changes: +DOCU-116 PO
[2022-01-10] MEDS ORDERED: LACTATED RINGERS 1000ML 1,000 ML IV ONE ×2 (12:00)
[2022-01-10 12:12] LABS: APPEARANCE,URINE SL CLOUDY (CLEAR); BILIRUBIN,URINE NEGATIVE (NEGATIVE); COLOR,URINE YELLOW (YELLOW); GLUCOSE, URINE (UA) NEGATIVE (NEGATIVE); KETONES,URINE NEGATIVE (NEGATIVE); LEUKOCYTE ESTERASE ,URINE NEGATIVE Leu/uL (NEGATIVE); NITRATE,URINE NEGATIVE (NEGATIVE); OCCULT BLOOD,URINE NEGATIVE (NEGATIVE); PH,URINE 6.5 (5.0-8.0); PROTEIN,URINE NEGATIVE (NEGATIVE); UROBILINOGEN,URINE 0.2 mg/dL (0.2-1.0)
[2022-01-10 12:16] LABS: HCG,QUALITATIVE URINE NEGATIVE (NEGATIVE)
[2022-01-10 12:25] LABS: BASOPHILS % (AUTO) 0.4 % (0.0-5.0); EOSINOPHILS % (AUTO) 4.1 % (0.0-8.0); HEMATOCRIT 28.2 % (36-48); LYMPHOCYTES % (AUTO) 29.9 % (21.0-51.0); MEAN CORPUSCULAR HEMOGLOBIN 25.9 pg (27.0-33.0); MEAN CORPUSCULAR HGB CONC 31.6 g/dL (32.0-36.0); MEAN CORPUSCULAR VOLUME 82.2 fL (79-99); MONOCYTES % (AUTO) 6.2 % (3.0-13.0); NEUTROPHILS % (AUTO) 58.6 % (40.0-77.0); PLATELET COUNT (AUTO) 298 K/uL (130-400); RED BLOOD CELL COUNT(AUTO) 3.43 MIL/uL (4.00-5.50); RED CELL DISTRIBUTION WIDTH 14.1 % (11.0-15.5); WHITE BLOOD COUNT (AUTO) 7.9 K/uL (4.8-10.8)
[2022-01-10 12:36] LABS: CREATININE 0.9 mg/dL (0.5-1.5); POTASSIUM 3.8 mmol/L (3.5-5.1)
[2022-01-10 12:43] LABS: ALBUMIN 3.6 g/dL (3.5-5.0); TOTAL PROTEIN, SERUM 6.7 g/dL (6.0-8.3)
[2022-01-10 12:46] VITALS: BP 107/43
[2022-01-10] MEDS ORDERED: PANTOPRAZOLE 40 MG/VIAL IVP STA (13:26)
[2022-01-10] MEDS ORDERED: ONDANSETRON 4MG INJ IVP ONE (13:30)
[2022-01-10] MEDS ORDERED: KETOROLAC 15MG/ML VIAL (15MG/ML) IV ONE (13:30)
== END 2022-01-10 14:00 | disposition home or self-care (01) ==
LOC: EDH 11:24
DX: K29.70 Gastritis, unspecified, without bleeding (principal); D64.9 Anemia, unspecified; Z76.5 Malingerer [conscious simulation]; Z90.49 Acquired absence of other specified parts of digestive tract; Z98.890 Other specified postprocedural states; Z79.899 Other long term (current) drug therapy
CPT/HCPCS: 99284; 96374; 96361; 96375; 82150; 82550; 80053; 83690; 85025; 81003; 81025; 36415; 93005; J7120; J2405; J1885; S0164; C9113

== ENCOUNTER 2022-03-13 20:51 | Emergency (ER) | payer MEDICAID ==
[~2022-03-13] VITALS: Ht 147.3 cm; Wt 67.6 kg
[2022-03-13 22:18] LABS: APPEARANCE,URINE CLEAR (CLEAR); BILIRUBIN,URINE NEGATIVE (NEGATIVE); COLOR,URINE LIGHT-YELLOW (YELLOW); GLUCOSE, URINE (UA) NEGATIVE (NEGATIVE); KETONES,URINE NEGATIVE (NEGATIVE); LEUKOCYTE ESTERASE ,URINE 25 Leu/uL (NEGATIVE); NITRATE,URINE NEGATIVE (NEGATIVE); OCCULT BLOOD,URINE MODERATE (NEGATIVE); PH,URINE 6.5 (5.0-8.0); PROTEIN,URINE NEGATIVE (NEGATIVE); UROBILINOGEN,URINE 0.2 mg/dL (0.2-1.0)
[2022-03-13 22:23] LABS: BACTERIA,URINE RARE /HPF (None Seen); MUCUS,URINE RARE LPF (None Seen); RBC,URINE 0-1 /HPF (0-1); SQUAMOUS EPITHELIAL CELL,UR RARE /HPF (0-2)
[2022-03-13] MEDS ORDERED: ONDANSETRON 4MG INJ IVP ONE (22:30)
[2022-03-13 22:39] LABS: BASOPHILS % (AUTO) 0.3 % (0.0-5.0); EOSINOPHILS % (AUTO) 1.5 % (0.0-8.0); HEMATOCRIT 28.5 % (36-48); MEAN CORPUSCULAR HEMOGLOBIN 23.2 pg (27.0-33.0); MEAN CORPUSCULAR HGB CONC 30.2 g/dL (32.0-36.0); MEAN CORPUSCULAR VOLUME 76.8 fL (79-99); MONOCYTES % (AUTO) 5.7 % (3.0-13.0); NEUTROPHILS % (AUTO) 65.1 % (40.0-77.0); PLATELET COUNT (AUTO) 397 K/uL (130-400); RED BLOOD CELL COUNT(AUTO) 3.71 MIL/uL (4.00-5.50); RED CELL DISTRIBUTION WIDTH 15.1 % (11.0-15.5); WHITE BLOOD COUNT (AUTO) 7.6 K/uL (4.8-10.8)
[2022-03-13 23:01] LABS: ALBUMIN 3.2 g/dL (3.5-5.0); CREATININE 0.7 mg/dL (0.5-1.5); TOTAL PROTEIN, SERUM 6.2 g/dL (6.0-8.3)
[2022-03-13 23:03] LABS: POTASSIUM 2.1 mmol/L (3.5-5.1)
[2022-03-13] MEDS ORDERED: KCL 20 MEQ ERTAB PO ONE (23:30)
[2022-03-13] MEDS ORDERED: POTASSIUM BICARB/CIT AC 25 MEQ TABLET.EFF PO ONE (23:30)
[2022-03-13] MEDS ORDERED: POTASSIUM CHLORIDE 20MEQ/10ML 10 MEQ in 0.9%NACL 50ML 50 ML IV SCH (23:30)
[2022-03-14] MEDS: POTASSIUM CHLORIDE 20MEQ/10ML 10 MEQ in 0.9%NACL 50ML 50 ML IV SCH ×3 (00:38→06:01)
[2022-03-14] MEDS ORDERED: POTASSIUM CHLORIDE 20MEQ/100ML 100 ML IV ONE (02:04)
[2022-03-14] MEDS ORDERED: POTASSIUM BICARB/CIT AC 25 MEQ TABLET.EFF PO ONE (02:30)
[2022-03-14] MEDS ORDERED: KCL 20 MEQ ERTAB PO ONE (02:30)
[2022-03-14 05:56] VITALS: BP 114/71
== END 2022-03-14 06:08 | disposition home or self-care (01) ==
LOC: EDH 20:51
DX: E87.6 Hypokalemia (principal); R10.9 Unspecified abdominal pain; R56.9 Unspecified convulsions; Z90.49 Acquired absence of other specified parts of digestive tract; Z79.899 Other long term (current) drug therapy; Z98.890 Other specified postprocedural states
CPT/HCPCS: 99291; 96365; 96366; 71045; 96375; 84484; 80053; 83690; 85025; 81001; 36415 ×2; 93005; 84132; J2405 ×2; J3480 ×2

== ENCOUNTER 2023-04-07 06:34 | Emergency (ER) | payer MEDICAID ==
[~2023-04-07] VITALS: Ht 147.3 cm; Wt 63.5 kg
[~2023-04-07 06:34] MED LIST changes: -ACET-2079 PO; -AMOX-429 PO; +CEPH250 PO; -DOCU-116 PO; +HYOS-28 PO; -MACR100 PO; -SENN-183 PO
[2023-04-07] MEDS ORDERED: ACETAMINOPHEN 325 MG TAB ONE (07:47)
[2023-04-07] MEDS ORDERED: 0.9% NACL 500ML IV.SOLN 500 ML IV ONE ×2 (08:00→11:00)
[2023-04-07 08:09] LABS: BASOPHILS # (AUTO) 0.02 K/uL (0.00-0.20); BASOPHILS % (AUTO) 0.2 % (0.0-5.0); EOSINOPHILS # (AUTO) 0.15 K/uL (0.00-0.70); EOSINOPHILS % (AUTO) 1.7 % (0.0-8.0); HEMATOCRIT 26.9 % (36-48); IMMATURE GRANULOCYTE ABSOLUTE 0.03 K/uL (0-1); MEAN CORPUSCULAR HEMOGLOBIN 23.3 pg (27.0-33.0); MEAN CORPUSCULAR HGB CONC 29.4 g/dL (32.0-36.0); MEAN CORPUSCULAR VOLUME 79.4 fL (79-99); MONOCYTES # (AUTO) 0.5 K/uL (0.1-1.0); MONOCYTES % (AUTO) 5.7 % (3.0-13.0); NEUTROPHILS # (AUTO) 6.9 K/uL (1.8-7.7); NEUTROPHILS % (AUTO) 80.1 % (40.0-77.0); PLATELET COUNT (AUTO) 373 K/uL (130-400); RED BLOOD CELL COUNT(AUTO) 3.39 MIL/uL (4.00-5.50); RED CELL DISTRIBUTION WIDTH 20.1 % (11.0-15.5); WHITE BLOOD COUNT (AUTO) 8.6 K/uL (4.8-10.8)
[2023-04-07 08:30] LABS: ALBUMIN 3.5 g/dL (3.5-5.0); BILIRUBIN,TOTAL 0.3 mg/dL (0.2-1.0); CREATININE 0.8 mg/dL (0.5-1.5); TOTAL PROTEIN, SERUM 6.8 g/dL (6.0-8.3)
[2023-04-07] MEDS ORDERED: ACETAMINOPHEN 325 MG TAB PO ONE (08:30)
[2023-04-07 08:33] LABS: POTASSIUM 2.8 mmol/L (3.5-5.1)
[2023-04-07 08:47] LABS: APPEARANCE,URINE CLEAR (CLEAR); BILIRUBIN,URINE NEGATIVE (NEGATIVE); COLOR,URINE LIGHT-YELLOW (YELLOW); GLUCOSE, URINE (UA) NEGATIVE (NEGATIVE); KETONES,URINE NEGATIVE (NEGATIVE); LEUKOCYTE ESTERASE ,URINE NEGATIVE Leu/uL (NEGATIVE); NITRATE,URINE NEGATIVE (NEGATIVE); OCCULT BLOOD,URINE NEGATIVE (NEGATIVE); PROTEIN,URINE NEGATIVE (NEGATIVE); UROBILINOGEN,URINE 0.2 mg/dL (0.2-1.0)
[2023-04-07 08:54] LABS: AMPHET/METH SCREEN,URINE NEGATIVE (NEGATIVE); BARBITURATE SCREEN, URINE NEGATIVE (NEGATIVE); BENZODIAZEPINES SCREEN,URINE POSITIVE (NEGATIVE); CANNABINOID SCREEN,URINE NEGATIVE (NEGATIVE); COCAINE SCREEN,URINE NEGATIVE (NEGATIVE); OPIATE SCREEN,URINE NEGATIVE (NEGATIVE); PHENCYCLIDINE SCREEN,URINE NEGATIVE (NEGATIVE)
[2023-04-07] MEDS ORDERED: KCL 20 MEQ ERTAB PO ONE ×2 (09:00→12:00)
[2023-04-07] MEDS ORDERED: ONDANSETRON 4MG INJ IVP ONE (09:00)
[2023-04-07 09:26] LABS: ADD UA MICROSCOPIC NO
[2023-04-07 10:16] LABS: ABG BASE EXCESS -9.6 mmol/L (-2.0-3.0); ABG OXYGEN SATURATION 96.5 % (95.0-99.0); ABG PCO2 30 mmHg (32-45); ABG PH 7.317 (7.35-7.450); PO2, ARTERIAL BG 91.1 mmHg (83.0-108.0); VENT MODE, BG RA (ROOM AIR)
[2023-04-07 10:55] VITALS: BP 136/85; PULSE 91; RESP 18; O2SAT 100
[2023-04-07] MEDS ORDERED: IBUPROFEN 600 MG TABLET PO ONE (12:00)
== END 2023-04-07 12:26 | disposition home or self-care (01) ==
LOC: EDH 06:34
DX: S01.01XA Laceration without foreign body of scalp, initial encounter (principal); G89.29 Other chronic pain; R10.9 Unspecified abdominal pain; D64.9 Anemia, unspecified; E87.6 Hypokalemia; Z79.899 Other long term (current) drug therapy; Z98.890 Other specified postprocedural states; X58.XXXA Exposure to other specified factors, initial encounter; Y93.89 Activity, other specified; Y92.89 Other specified places as the place of occurrence of the external cause; Y99.8 Other external cause status
CPT/HCPCS: 99285; 96374; 70450; 96361; 82270; 83735; 84484; 80053; 82803; 80305; 83690; 85025; 87046; 83605 ×2; 82010; 36415; 93005; 36600; 81003; J7040 ×2; J2405

== ENCOUNTER 2023-04-10 00:13 | Emergency (ER) | payer MEDICAID ==
[~2023-04-10] VITALS: Ht 147.3 cm; Wt 68.9 kg
[2023-04-10] MEDS ORDERED: TRAM50TA4 PO (03:21)
[2023-04-10] MEDS ORDERED: IBUP-2071 PO (03:21)
[2023-04-10] MEDS ORDERED: MORPHINE 2 MG SYG IM ONE (03:30)
[2023-04-10 04:34] VITALS: BP 136/88; PULSE 92; RESP 16; O2SAT 100
== END 2023-04-10 04:36 | disposition home or self-care (01) ==
LOC: EDH 00:13
DX: S42.031A Displaced fracture of lateral end of right clavicle, initial encounter for closed fracture (principal); Z79.899 Other long term (current) drug therapy; Z98.2 Presence of cerebrospinal fluid drainage device; W18.39XA Other fall on same level, initial encounter; Y93.89 Activity, other specified; Y92.89 Other specified places as the place of occurrence of the external cause; Y99.8 Other external cause status
CPT/HCPCS: 99285; 70450; 84703; 36415; 73090; 73060; 73030; 72125; 96372; J2270

== ENCOUNTER 2023-08-24 21:24 | Emergency (ER) | payer MEDICAID ==
[~2023-08-24] VITALS: Ht 147.3 cm; Wt 68.0 kg
[~2023-08-24 21:24] MED LIST changes: -CEPH250 PO; -CEPH500B PO; -DICY20TA2 PO; +IBUP-2071 PO; -METO-296 PO
[2023-08-24] MEDS: ACETAMINOPHEN 500 MG TABLET PO ONE (21:55)
[2023-08-24 22:38] LABS: BASOPHILS # (AUTO) 0.03 K/uL (0.00-0.20); BASOPHILS % (AUTO) 0.3 % (0.0-5.0); EOSINOPHILS # (AUTO) 0.27 K/uL (0.00-0.70); EOSINOPHILS % (AUTO) 2.9 % (0.0-8.0); HEMATOCRIT 32.7 % (36-48); IMMATURE GRANULOCYTE ABSOLUTE 0.14 K/uL (0-1); LYMPHOCYTES # (AUTO) 1.8 K/uL (1.0-4.8); LYMPHOCYTES % (AUTO) 19.5 % (21.0-51.0); MEAN CORPUSCULAR HEMOGLOBIN 25.6 pg (27.0-33.0); MEAN CORPUSCULAR HGB CONC 30.3 g/dL (32.0-36.0); MEAN CORPUSCULAR VOLUME 84.7 fL (79-99); MONOCYTES # (AUTO) 0.3 K/uL (0.1-1.0); MONOCYTES % (AUTO) 3.2 % (3.0-13.0); NEUTROPHILS # (AUTO) 6.7 K/uL (1.8-7.7); NEUTROPHILS % (AUTO) 72.6 % (40.0-77.0); PLATELET COUNT (AUTO) 295 K/uL (130-400); RED BLOOD CELL COUNT(AUTO) 3.86 MIL/uL (4.00-5.50); RED CELL DISTRIBUTION WIDTH 23.7 % (11.0-15.5); WHITE BLOOD COUNT (AUTO) 9.2 K/uL (4.8-10.8)
[2023-08-24 22:54] LABS: CREATININE 0.9 mg/dL (0.5-1.0); POTASSIUM 3.6 mmol/L (3.5-5.1)
[2023-08-24 23:02] LABS: ALBUMIN 4.2 g/dL (3.5-5.0); BILIRUBIN,TOTAL 0.2 mg/dL (0.2-1.0); TOTAL PROTEIN, SERUM 7.7 g/dL (6.0-8.3)
[2023-08-24] MEDS: 0.9%NACL 1000ML 1,000 ML IV ONE (23:06)
[2023-08-24] MEDS: ONDANSETRON 4MG INJ IVP ONE (23:06)
[2023-08-24] MEDS: MORPHINE 2 MG SYG IVP ONE (23:07)
[2023-08-24 23:12] VITALS: BP 133/83; PULSE 100; RESP 18; O2SAT 98
[2023-08-24] MEDS ORDERED: HYDROCODONE/ACETAMINOPHEN 5/325 MG TAB PO SCH (23:30)
== END 2023-08-24 23:36 | disposition home or self-care (01) ==
LOC: EDH 21:24
DX: S00.03XA Contusion of scalp, initial encounter (principal); S30.1XXA Contusion of abdominal wall, initial encounter; W18.09XA Striking against other object with subsequent fall, initial encounter; Y93.K1 Activity, walking an animal; Y92.89 Other specified places as the place of occurrence of the external cause; Y99.8 Other external cause status
CPT/HCPCS: 99285; 96374; 70450; 96375; 80053; 83690; 85025; 36415; J2270; J7030; J2405

== ENCOUNTER 2023-12-12 00:52 | Emergency (ER) | payer MEDICAID ==
[~2023-12-12] VITALS: Ht 147.3 cm; Wt 64.0 kg
[2023-12-12 01:47] LABS: APPEARANCE,URINE CLEAR (CLEAR); BILIRUBIN,URINE NEGATIVE (NEGATIVE); COLOR,URINE LIGHT-YELLOW (YELLOW); GLUCOSE, URINE (UA) NEGATIVE (NEGATIVE); KETONES,URINE NEGATIVE (NEGATIVE); LEUKOCYTE ESTERASE ,URINE 75 Leu/uL (NEGATIVE); NITRATE,URINE NEGATIVE (NEGATIVE); OCCULT BLOOD,URINE NEGATIVE (NEGATIVE); PH,URINE 6.5 (5.0-8.0); PROTEIN,URINE NEGATIVE (NEGATIVE); UROBILINOGEN,URINE 0.2 mg/dL (0.2-1.0)
[2023-12-12] MEDS: LACTATED RINGERS 1000ML 1,000 ML IV ONE (01:47)
[2023-12-12 01:48] LABS: ADD UA MICROSCOPIC YES
[2023-12-12 01:54] LABS: BACTERIA,URINE Rare /HPF (None Seen); SQUAMOUS EPITHELIAL CELL,UR Rare /HPF (0-2)
[2023-12-12 01:56] LABS: HCG,QUALITATIVE URINE NEGATIVE (NEGATIVE)
[2023-12-12 01:58] LABS: BASOPHILS # (AUTO) 0.02 K/uL (0.00-0.20); BASOPHILS % (AUTO) 0.3 % (0.0-5.0); EOSINOPHILS # (AUTO) 0.27 K/uL (0.00-0.70); HEMATOCRIT 36.5 % (36-48); IMMATURE GRANULOCYTE ABSOLUTE 0.02 K/uL (0-1); LYMPHOCYTES % (AUTO) 29.9 % (21.0-51.0); MEAN CORPUSCULAR HEMOGLOBIN 28.4 pg (27.0-33.0); MEAN CORPUSCULAR HGB CONC 32.3 g/dL (32.0-36.0); MEAN CORPUSCULAR VOLUME 87.7 fL (79-99); MONOCYTES # (AUTO) 0.5 K/uL (0.1-1.0); MONOCYTES % (AUTO) 7.3 % (3.0-13.0); NEUTROPHILS # (AUTO) 3.9 K/uL (1.8-7.7); NEUTROPHILS % (AUTO) 58.2 % (40.0-77.0); PLATELET COUNT (AUTO) 308 K/uL (130-400); RED BLOOD CELL COUNT(AUTO) 4.16 MIL/uL (4.00-5.50); RED CELL DISTRIBUTION WIDTH 13.6 % (11.0-15.5); WHITE BLOOD COUNT (AUTO) 6.7 K/uL (4.8-10.8)
[2023-12-12 02:09] LABS: CREATININE 1.1 mg/dL (0.5-1.0); POTASSIUM 3.4 mmol/L (3.5-5.1)
[2023-12-12 02:13] LABS: ALBUMIN 3.8 g/dL (3.5-5.0); BILIRUBIN,TOTAL 0.3 mg/dL (0.2-1.0); TOTAL PROTEIN, SERUM 7.5 g/dL (6.0-8.3)
[2023-12-12] MEDS: morPHINE 4 MG SYG IVP ONE (03:08)
[2023-12-12] MEDS: MAG/ALUM/SIMETH 30 ML UDCUP PO ONE (03:08)
[2023-12-12] MEDS: ondanSETRON 4MG INJ IVP ONE (03:09)
[2023-12-12] MEDS: LIDOCAINE HCL 2% VISCOUS 15 ML UDCUP PO ONE (03:09)
[2023-12-12] MEDS: DICYCLOMINE HCL 10 MG/5 ML ML PO ONE (03:09)
[2023-12-12] MEDS: DiphenhydrAMINE HCL 25 MG CAPSULE PO ONE (03:28)
[2023-12-12] MEDS ORDERED: leveTIRACEtam 500 MG/5 ML SD VIAL IV SCH (04:30)
[2023-12-12] MEDS: morPHINE 2 MG SYG IVP ONE (04:55)
[2023-12-12] MEDS: [UNRECOGNIZED DRUG - MIXTURE] IV ONE (04:58)
[2023-12-12 05:44] VITALS: BP 118/70; PULSE 80; RESP 18; TEMP 98; O2SAT 99
== END 2023-12-12 05:45 | disposition home or self-care (01) ==
LOC: EDH 00:52
DX: G89.29 Other chronic pain (principal); R10.9 Unspecified abdominal pain; F41.9 Anxiety disorder, unspecified; Z79.899 Other long term (current) drug therapy; Z98.890 Other specified postprocedural states
CPT/HCPCS: 99285; 74176; 96365; 96361; 96375; 82150; 80053; 83690; 85025; 87086 ×3; 87186 ×2; 81001; 81025; 36415; 96376; Q0163; J7120; J1953; J2270 ×2; J2405

== ENCOUNTER 2023-12-24 23:04 | Emergency (ER) | payer MEDICAID ==
[~2023-12-24] VITALS: Ht 147.3 cm; Wt 64.4 kg
[2023-12-25 00:07] LABS: POTASSIUM 3.2 mmol/L (3.5-5.1)
[2023-12-25 00:13] LABS: BASOPHILS # (AUTO) 0.03 K/uL (0.00-0.20); BASOPHILS % (AUTO) 0.4 % (0.0-5.0); EOSINOPHILS # (AUTO) 0.31 K/uL (0.00-0.70); EOSINOPHILS % (AUTO) 3.6 % (0.0-8.0); HEMATOCRIT 38.7 % (36-48); IMMATURE GRANULOCYTE ABSOLUTE 0.05 K/uL (0-1); LYMPHOCYTES # (AUTO) 2.2 K/uL (1.0-4.8); LYMPHOCYTES % (AUTO) 25.5 % (21.0-51.0); MEAN CORPUSCULAR HEMOGLOBIN 28.1 pg (27.0-33.0); MEAN CORPUSCULAR VOLUME 87.8 fL (79-99); MONOCYTES # (AUTO) 0.5 K/uL (0.1-1.0); MONOCYTES % (AUTO) 6.3 % (3.0-13.0); NEUTROPHILS # (AUTO) 5.4 K/uL (1.8-7.7); NEUTROPHILS % (AUTO) 63.6 % (40.0-77.0); PLATELET COUNT (AUTO) 277 K/uL (130-400); RED BLOOD CELL COUNT(AUTO) 4.41 MIL/uL (4.00-5.50); RED CELL DISTRIBUTION WIDTH 13.3 % (11.0-15.5); WHITE BLOOD COUNT (AUTO) 8.6 K/uL (4.8-10.8)
[2023-12-25] MEDS: PANTOPrazole 40 MG/VIAL IVP ONE (00:19)
[2023-12-25] MEDS: ondanSETRON 4MG INJ IVP ONE (00:19)
[2023-12-25] MEDS: LACTATED RINGERS 1000ML 1,000 ML IV ONE (00:20)
[2023-12-25 01:02] LABS: APPEARANCE,URINE CLOUDY (CLEAR); BILIRUBIN,URINE NEGATIVE (NEGATIVE); COLOR,URINE COLORLESS (YELLOW); GLUCOSE, URINE (UA) NEGATIVE (NEGATIVE); KETONES,URINE NEGATIVE (NEGATIVE); LEUKOCYTE ESTERASE ,URINE NEGATIVE Leu/uL (NEGATIVE); NITRATE,URINE NEGATIVE (NEGATIVE); OCCULT BLOOD,URINE NEGATIVE (NEGATIVE); PROTEIN,URINE NEGATIVE (NEGATIVE); UROBILINOGEN,URINE 0.2 mg/dL (0.2-1.0)
[2023-12-25 01:03] LABS: ADD UA MICROSCOPIC NO
[2023-12-25 01:07] LABS: HCG,QUALITATIVE URINE NEGATIVE (NEGATIVE)
[2023-12-25 01:18] LABS: AMPHET/METH SCREEN,URINE NEGATIVE (NEGATIVE); BARBITURATE SCREEN, URINE NEGATIVE (NEGATIVE); BENZODIAZEPINES SCREEN,URINE POSITIVE (NEGATIVE); CANNABINOID SCREEN,URINE NEGATIVE (NEGATIVE); COCAINE SCREEN,URINE NEGATIVE (NEGATIVE); OPIATE SCREEN,URINE NEGATIVE (NEGATIVE); PHENCYCLIDINE SCREEN,URINE NEGATIVE (NEGATIVE)
[2023-12-25 01:27] LABS: BACTERIA,URINE FEW /HPF (None Seen); RBC,URINE 0-1 /HPF (0-1); SQUAMOUS EPITHELIAL CELL,UR MOD /HPF (0-2)
[2023-12-25] MEDS: ketOROlac 15MG/ML VIAL (15MG/ML) IV ONE (02:10)
[2023-12-25 03:15] VITALS: BP 116/79; PULSE 82; RESP 18; TEMP 98.6; O2SAT 97
== END 2023-12-25 03:19 | disposition home or self-care (01) ==
LOC: EDH 23:04
DX: G89.29 Other chronic pain (principal); R10.84 Generalized abdominal pain; F41.9 Anxiety disorder, unspecified; I10 Essential (primary) hypertension; Z79.899 Other long term (current) drug therapy; Z90.49 Acquired absence of other specified parts of digestive tract; Z98.890 Other specified postprocedural states
CPT/HCPCS: 99285; 82550; 84484; 80048; 80305; 83690; 85025; 81025; 36415; 93005; 81003; 74176; 96374; 96375; J7120; J2405; J2470; J1885

== ENCOUNTER 2024-01-06 03:14 | Emergency (ER) | payer MEDICAID ==
[~2024-01-06] VITALS: Ht 147.3 cm; Wt 65.3 kg
[2024-01-06 04:09] LABS: APPEARANCE,URINE CLOUDY (CLEAR); BILIRUBIN,URINE NEGATIVE (NEGATIVE); COLOR,URINE YELLOW (YELLOW); GLUCOSE, URINE (UA) NEGATIVE (NEGATIVE); KETONES,URINE NEGATIVE (NEGATIVE); LEUKOCYTE ESTERASE ,URINE 25 Leu/uL (NEGATIVE); NITRATE,URINE NEGATIVE (NEGATIVE); OCCULT BLOOD,URINE MODERATE (NEGATIVE); PROTEIN,URINE 20 mg/dL (NEGATIVE); UROBILINOGEN,URINE 0.2 mg/dL (0.2-1.0)
[2024-01-06] MEDS: ondanSETRON 4MG TABLET PO ONE (04:09)
[2024-01-06] MEDS: LACTATED RINGERS 1000ML 1,000 ML IV ONE (04:10)
[2024-01-06 04:11] LABS: HCG,QUALITATIVE URINE NEGATIVE (NEGATIVE)
--- NOTE | 2024-01-06 04:14 | NUR ---
COVID AND FLU SWABS COLLECTED AND SENT
[2024-01-06 04:24] LABS: BASOPHILS # (AUTO) 0.03 K/uL (0.00-0.20); BASOPHILS % (AUTO) 0.4 % (0.0-5.0); EOSINOPHILS # (AUTO) 0.15 K/uL (0.00-0.70); HEMATOCRIT 37.9 % (36-48); IMMATURE GRANULOCYTE ABSOLUTE 0.03 K/uL (0-1); LYMPHOCYTES # (AUTO) 2.2 K/uL (1.0-4.8); LYMPHOCYTES % (AUTO) 28.9 % (21.0-51.0); MEAN CORPUSCULAR HEMOGLOBIN 28.2 pg (27.0-33.0); MEAN CORPUSCULAR HGB CONC 32.5 g/dL (32.0-36.0); MEAN CORPUSCULAR VOLUME 86.9 fL (79-99); MONOCYTES # (AUTO) 0.4 K/uL (0.1-1.0); MONOCYTES % (AUTO) 5.5 % (3.0-13.0); NEUTROPHILS # (AUTO) 4.7 K/uL (1.8-7.7); NEUTROPHILS % (AUTO) 62.8 % (40.0-77.0); PLATELET COUNT (AUTO) 300 K/uL (130-400); RED BLOOD CELL COUNT(AUTO) 4.36 MIL/uL (4.00-5.50); RED CELL DISTRIBUTION WIDTH 13.2 % (11.0-15.5); WHITE BLOOD COUNT (AUTO) 7.5 K/uL (4.8-10.8)
[2024-01-06 04:31] LABS: ADD UA MICROSCOPIC YES
[2024-01-06 04:32] LABS: CREATININE 0.8 mg/dL (0.5-1.0); POTASSIUM 3.3 mmol/L (3.5-5.1)
[2024-01-06 04:32] LABS: BACTERIA,URINE FEW /HPF (None Seen); MUCUS,URINE RARE LPF (None Seen); NON-SQUAMOUS EPITHELIAL CELL 13 /HPF (0-2); SQUAMOUS EPITHELIAL CELL,UR MANY /HPF (0-2); WBC,URINE 26-50 /HPF (0-1)
[2024-01-06 04:37] LABS: ALBUMIN 3.5 g/dL (3.5-5.0); BILIRUBIN,TOTAL 0.2 mg/dL (0.2-1.0); TOTAL PROTEIN, SERUM 7.2 g/dL (6.0-8.3)
[2024-01-06 04:38] LABS: SARS-CoV-2, RNA, NAAT NEGATIVE SARS CoV-2 (NEGATIVE)
[2024-01-06 04:41] LABS: INFLUENZA TYPE A Negative For Type A (NEGATIVE); INFLUENZA TYPE B Negative For Type B (NEGATIVE)
--- NOTE | 2024-01-06 04:42 | ERN ---
General Chief Complaint: Abdominal Pain Stated Complaint: ABD PAIN, GBW, V/D Time Seen by MD: 03:15 History of Present Illness Initial Comments Mr Fong is a 43 year old male with a significant past medical history of spina bifida, seizures, anxiety, iron deficiency anemia who presents today with a chief complaint of generalized weakness and chills. Patient reports that she has been feeling under the weather and does not been able to feel like herself. Patient was has a history of spina bifida in which she self caths. Allergies: Coded Allergies: No Known Drug Allergies (Verified Allergy, Unknown, 07/12/20) Home Meds Active Scripts Ibuprofen (Ibuprofen) 800 Mg Tablet, 800 MG PO Q8H PRN for PAIN, #30 TAB 0 Refills Prov:IGOR FINN MD 04/10/23 Hyoscyamine Sulfate (Levsin) 0.125 Mg Tab, 0.125 MG PO QID, #30 TAB Prov:DIMAS SRINIVASAN MD 08/05/22 Pantoprazole Sodium (Pantoprazole Sodium) 40 Mg Tablet.dr, 40 MG PO DAILY, #10 TAB 0 Refills Prov:YOUSIF MCINTOSH MD 10/16/20 Reported Medications Trazodone HCl (Trazodone HCl) 300 Mg Tablet, 300 MG PO HS, TAB 07/13/20 Linaclotide (Linzess) 290 Mcg Capsule, 290 MCG PO DAILY, CAP 07/13/20 Lamotrigine (Lamotrigine) 200 Mg Tab.er.24, 200 MG PO DAILY 07/13/20 Quetiapine Fumarate (Quetiapine Fumarate) 300 Mg Tablet, 300 MG PO HS, TAB 07/13/20 Levetiracetam (Levetiracetam) 1,000 Mg Tablet, 1000 MG PO BID, TAB 07/13/20 Alprazolam (Alprazolam) 2 Mg Tablet, 2 MG PO TID, TAB 06/02/19 Folic Acid (Folic Acid) 1 Mg Tablet, 2 MG PO DAILY, TAB 07/12/18 Ferrous Sulfate (Ferrousul) 325 Mg Tablet, 325 MG PO BID, TAB 07/12/18 Past Medical History Past Medical History: Anxiety, Diabetes-Type II, Hypertension, Pancreatitis, Other Medical History Other: SPINAL BIFIDA; SBO, SELF CATH, MRSA,CRE Past Surgical History: Appendectomy, Cholecystectomy, Other Surgical History Other: SHUNT TO HEAD; ABD SX Family History Family History: Negative Social History Social History: Negative, Lives with family, Other Female( History) History: Not Applicable LMP: Dec 30, 2023 ROS Dictation Constitutional: Negative for fever,chills, and weight loss Eyes: Negative for injury, pain,redness, and discharge ENT: Negative for injury,pain or swelling Cardiovascular: Negative for chest pain, palpitations, and edema Respiratory: Negative for shortness of breath, cough, and wheezing, Abdomen/GI: Positive for abdominal pain Back: Negative for injury and pain : Negative for injury, bleeding and discharge MS/Extremity: Negative for injury and deformity Skin: Negative for rash, and discoloration Neuro: Negative for headache, weakness, numbness, tingling, and seizure Psych: Negative for suicide ideation, homicidal ideation, and hallucinations Physical Exam Physical Exam Dictation General: awake, alert, NAD Head/Face: Normocephalic, atraumatic Eyes: PERRL, EOMI, vision at baseline ENT: oral cavity clear, TMs clear Neck: Trachea midline, supple Cardiovascular: RRR, normal S1/S2 Respiratory: CTAB, no respiratory distress, No rales or wheezes Abdomen: Positive for abdominal pain Skin: Warm, dry, normal turgor, no rash MS/Extremity: Pulses equal, no cyanosis, neurovascular intact, FROM Neuro: COAx4, GCS 15, strength 5/5, CN 2-12 intact Results Laboratory and Microbiology Lab and Micro Result Laboratory Tests Test 01/06/24 03:56 01/06/24 04:12 01/06/24 04:14 Urine Color YELLOW (YELLOW) Urine Appearance CLOUDY (CLEAR) H Urine pH 6.0 (5.0-8.0) Urine Specific [place] 1.021 (1.001-1.031) Urine Protein 20 mg/dL (NEGATIVE) H Urine Glucose (UA) NEGATIVE mg/dL (NEGATIVE) Urine Ketones NEGATIVE mg/dL (NEGATIVE) Urine Occult Blood MODERATE (NEGATIVE) H Urine Nitrate NEGATIVE (NEGATIVE) Urine Bilirubin NEGATIVE mg/dL (NEGATIVE) Urine Urobilinogen 0.2 mg/dL (0.2-1.0) Urine Leukocyte Esterase 25 [place]ice[place]/uL (NEGATIVE) H Urine RBC 11-25 /HPF (0-1) H Urine WBC 26-50 /HPF (0-1) H Urine Squamous Epithelial Cells MANY /HPF (0-2) Urine Non-Squamous Epithelial Cells 13 /HPF (0-2) Urine Bacteria FEW /HPF (None Seen) Urine HCG, Qualitative NEGATIVE (NEGATIVE) White Blood Count 7.5 K/uL (4.8-10.8) Red Blood Count 4.36 MIL/uL (4.00-5.50) Hemoglobin 12.3 g/dL (12.0-16.0) Hematocrit 37.9 % (36-48) Mean Corpuscular Volume 86.9 fL (79-99) Mean Corpuscular Hemoglobin 28.2 pg (27.0-33.0) Mean Corpuscular Hemoglobin Concent 32.5 g/dL (32.0-36.0) Red Cell Distribution Width 13.2 % (11.0-15.5) Platelet Count 300 K/uL (130-400) Mean Platelet Volume 10.2 fL (7.5-10.5) Immature Granulocyte % (Auto) 0.4 % (0-1) Neutrophils (%) (Auto) 62.8 % (40.0-77.0) Lymphocytes (%) (Auto) 28.9 % (21.0-51.0) Monocytes (%) (Auto) 5.5 % (3.0-13.0) Eosinophils (%) (Auto) 2.0 % (0.0-8.0) Basophils (%) (Auto) 0.4 % (0.0-5.0) Neutrophils # (Auto) 4.7 K/uL (1.8-7.7) Lymphocytes # (Auto) 2.2 K/uL (1.0-4.8) Monocytes # (Auto) 0.4 K/uL (0.1-1.0) Eosinophils # (Auto) 0.15 K/uL (0.00-0.70) Basophils # (Auto) 0.03 K/uL (0.00-0.20) Absolute Immature Granulocyte (auto 0.03 K/uL (0-1) Nucleated Red Blood Cells 0.0 % (0.0-0.19) Sodium Level 137 mmol/L (136-145) Potassium Level 3.3 mmol/L (3.5-5.1) L Chloride Level 101 mmol/L (101-111) Carbon Dioxide Level 30 mmol/L (21-32) Blood Urea Nitrogen 18 mg/dL (7-18) Creatinine 0.8 mg/dL (0.5-1.0) Glomerular Filtration Rate Calc 93 mL/min (>90) Random Glucose 95 mg/dL (70-105) Total Calcium 8.5 mg/dL (8.5-10.1) Total Bilirubin 0.2 mg/dL (0.2-1.0) Aspartate Amino Transf (AST/SGOT) 23 U/L (10-37) Alanine Aminotransferase (ALT/SGPT) 27 U/L (12-78) Alkaline Phosphatase 198 U/L (50-136) H Troponin I High Sensitivity < 4 ng/L (4-50) L Total Protein 7.2 g/dL (6.0-8.3) Albumin 3.5 g/dL (3.5-5.0) Lipase 11 U/L (16-77) L Influenza Type A Antigen Negative For Type A Influenza Type B Antigen Negative For Type B SARS-CoV-2, RNA, NAAT NEGATIVE SARS CoV-2 MDM Patient at this time we will be treated for a UTI. Patient's urine is concerning for UTI. MDM: Differential diagnosis: UTI Rationale: Tests considered and ordered secondary to shared decision making include: Previous outside records reviewed: Old ER visits. Risk of complication and/or morbidity or mortality of patient management: None Medications-Per medication reconciliation Need for hospitalization: Patient does not meet criteria for hospitalization. Need for emergency major/minor surgery: No There are no social concerns with this patient. Prescription drug management Prescriptions will include symptomatic care Patient's prior external medical records from other ER visits were reviewed by me as indicated. Prior testing and results from previous visits were reviewed. Prior tests were taken into account with medical decision making and resource utilization, independent historian/historians were used to obtain complete medical history. I independently interpreted the test that were performed, results were reviewed by me and considered findings on radiology if ordered. Medical management and examination interpretation discussions were had by me with other qualified healthcare professionals as indicated for the patient's care. ED Course Orders Procedure Category Date Status Time Troponin I High LAB 01/06/24 Complete Sensitivity 03:17 12 Lead Ekg Tracing- EKG 01/06/24 Logged Technical 03:17 Cbc With Differential LAB 01/06/24 Complete 03:17 Urinalysis Profile LAB 01/06/24 Complete Catherized 03:17 ,Urine Test LAB 01/06/24 Complete 03:17 Covid Rna Naat LAB 01/06/24 Complete 03:17 Influenza Type A & B, LAB 01/06/24 Complete Rapid 03:17 Comprehensive LAB 01/06/24 Complete Metabolic Panel 03:16 Urinalysis Profile LAB 01/06/24 Logged 03:16 Lactated Ringers PHA 01/06/24 Complete 1000ml (Lactated 03:30 Ondansetron 4mg PHA 01/06/24 Complete Tablet (Zofran 4mg 03:30 Chest 1vw RAD 01/06/24 Taken 03:16 Lipase LAB 01/06/24 Complete 03:16 Culture Urine HANK 01/06/24 In Process 04:33 Nitrofurantoin PHA 01/06/24 In Process Monohyd/M-Cryst 05:30 Morphine 2mg Syg PHA 01/06/24 In Process (Morphine 2mg Syg) 05:30 Current Medications Medications (Trade) Dose Ordered Sig/Sandi Route PRN Reason Start Time Stop Time Status Last Admin Dose Admin Lactated Ringer's 1,000 ml @ 0 mls/hr ONCE ONCE IV 01/06/24 03:30 01/06/24 04:04 DC 01/06/24 04:10 Morphine Sulfate (morPHINE 2MG SYG) 2 mg ONCE ONCE IVP 01/06/24 05:30 01/06/24 05:31 Nitrofurantoin Macrocrystals (Macrobid) 100 mg ONCE ONCE PO 01/06/24 05:30 01/06/24 05:31 Ondansetron HCl (zoFRAN 4MG TABLET) 4 mg ONCE ONCE PO 01/06/24 03:30 01/06/24 04:04 DC 01/06/24 04:09 Vital Signs Date Time Temp Pulse Resp B/P (MAP) Pulse Ox O2 Delivery O2 Flow Rate FiO2 01/06/24 04:10 98.8 74 20 110/70 100 Room Air* 0 21 01/06/24 03:15 98.2 79 20 130/79 100 Room Air DX & DISP Disposition: Discharge Departure Impression: Primary Impression: Sepsis secondary to UTI Condition: Stable Scripts Nitrofurantoin Monohyd/M-Cryst (Macrobid 100 mg Capsule) 100 Mg Capsule 1 CAP PO BID for 5 Days, #10 CAP 0 Refills Prov: VERO PYLE MD 01/06/24 Additional Instructions: Please take your antibiotics as prescribed. Please follow up with your primary care physician for continuance of care. Referrals: FRANKI VILLAFANA MD (PCP) VERO PYLE MD Jan 06, 2024 04:42
[2024-01-06] MEDS ORDERED: NITR100C4 PO (05:20)
[2024-01-06] MEDS: morPHINE 2 MG SYG IVP ONE (05:22)
[2024-01-06] MEDS: NITROFURANTOIN MONOHYD/M-CRYST 100 MG CAPSULE PO ONE (05:22)
[2024-01-06 05:25] VITALS: BP 121/66; PULSE 64; RESP 20; TEMP 98.7; O2SAT 100
--- NOTE | 2024-01-06 08:31 | HMCIMG ---
CHEST 1VW HISTORY: Shortness of breath COMPARISON: 03/13/2022 FINDINGS: A frontal projection of the chest was obtained. No acute pulmonary infiltrates is seen. The heart is borderline enlarged. Degenerative changes are seen. COLOR STRAINING BAG WASHER shunt is seen. Prominent interstitial markings are seen. No evidence of aortic calcification is seen. IMPRESSION: 1. No acute pulmonary infiltrate is seen.
--- NOTE | 2024-01-06 17:42 | EKG ---
[facility] Test Date: 2024-01-06 Test Time: 03:37:45 Pat Name: OVIDIO DORSEY Department: ED Room: Gender: F Skiver Box Toe: 1088 : 1980 Requested By: VERO PYLE Order Number: [id number] Reading MD: Compa Harrington Measurements Intervals [place] Rate: 71 P: 50 AR: 139 QRS: 24 QRSD: 83 T: 8 QT: 459 QTc: 501 Interpretive Statements Sinus rhythm Compared to ECG 12/25/2023 00:39:12 No significant changes Electronically Signed On 01-07-2024 20:16:58 CDT by Compa Harrington Please click the below link to view image of tracing.
[2024-03-04] MEDS ORDERED: ESOM20CA51 PO (12:21)
[2024-03-04] MEDS ORDERED: QUET25TA36 PO (12:21)
[2024-03-04] MEDS ORDERED: SERT-440 PO (12:21)
[2024-03-04] MEDS ORDERED: ZIPR20CA23 PO (12:21)
[2024-03-04] MEDS ORDERED: HYDR4 PO (12:21)
[2024-03-04] MEDS ORDERED: KEPPRA PO (12:21)
[2024-03-04] MEDS ORDERED: PROM50TA3 PO (12:21)
[2024-03-04] MEDS ORDERED: MINO100C6 PO (12:21)
[2024-03-04] MEDS ORDERED: DICY10CA2 PO (12:21)
== END 2024-01-06 05:32 | disposition home or self-care (01) ==
LOC: EDH 03:14
DX: A41.9 Sepsis, unspecified organism (principal); N39.0 Urinary tract infection, site not specified; E11.9 Type 2 diabetes mellitus without complications; F41.9 Anxiety disorder, unspecified; I10 Essential (primary) hypertension; Z79.899 Other long term (current) drug therapy; Z90.49 Acquired absence of other specified parts of digestive tract; Z20.822 Contact with and (suspected) exposure to COVID-19
CPT/HCPCS: 99285; 96374; 71045; 87635; 84484; 80053; 83690; 85025; 87086; 87804 ×2; 81001; 81025; 36415; 93005; Q0162; J7120; J2270

== ENCOUNTER 2024-03-05 05:44 | Day surgery (SDC) | payer MEDICAID ==
[2024-03-05] VITALS (11 sets, daily range): BP systolic 101–127; BP diastolic 65–85; PULSE 59–77; RESP 14–18; TEMP 97–98.7
[~2024-03-05] VITALS: Ht 152.4 cm; Wt 64.9 kg
[~2024-03-05 05:44] MED LIST changes: +DICY10CA2 PO; +ESOM20CA51 PO; -FERR-6 PO; -FOLI1TAB15 PO; +HYDR4 PO; -HYOS-28 PO; -IBUP-2071 PO; +KEPPRA PO; -LAMO200T51 PO; -LEVE10006 PO; -LINA290C PO; +MINO100C6 PO; +PROM50TA3 PO; +QUET25TA36 PO; -QUET300T19 PO; +SERT-440 PO; -TRAZ300T2 PO; +ZIPR20CA23 PO
[2024-03-05] MEDS ORDERED: 0.9%NACL 1000ML 1,000 ML IV ONE (06:08)
--- NOTE | 2024-03-05 10:39 | NUR ---
Patient aox4. Denies c/o pain or discomfort. Voiced understanding to EGD precautions and follow up expectations. Ambulated to bathroom with standby assist. Voided large amount of clear urine. PIV discontinued with catheter tip intact. Full and complete Discharge instructions given to Patient and Family. All questions answered. W/C to POV with Family to Home.
== END 2024-03-05 10:45 | disposition home or self-care (01) ==
LOC: DAH 05:44 → ENDO 05:44
PROVIDERS: ATTEND Internal Medicine Gastroenterology
DX: R13.10 Dysphagia, unspecified (principal); K44.9 Diaphragmatic hernia without obstruction or gangrene; R12 Heartburn; K29.70 Gastritis, unspecified, without bleeding; K59.04 Chronic idiopathic constipation; E66.01 Morbid (severe) obesity due to excess calories; Z68.29 Body mass index [BMI] 29.0-29.9, adult; I10 Essential (primary) hypertension; F41.9 Anxiety disorder, unspecified; F32.A Depression, unspecified; G40.909 Epilepsy, unspecified, not intractable, without status epilepticus; Q05.9 Spina bifida, unspecified; Z79.899 Other long term (current) drug therapy; Z90.49 Acquired absence of other specified parts of digestive tract; Z98.890 Other specified postprocedural states
CPT/HCPCS: 84703; 36415; 43239; J7030 ×2; A4620; A4215 ×2; A4223; A4222; A4221; A4663; A4606

== ENCOUNTER 2024-04-06 13:14 | Emergency (ER) | payer MEDICAID ==
[~2024-04-06] VITALS: Ht 147.3 cm; Wt 65.8 kg
--- NOTE | 2024-04-06 13:35 | ERN ---
ED Note History of Present Illness Stated Complaint: MAHESH, FALL Time Seen by MD: 13:17 Dictation: PATIENT IS A 43-YEAR-OLD FEMALE WITH A HISTORY OF SEIZURES AND HER COMING IN WITH HER . SHE STATES SHE HAD AN UNWITNESSED SEIZURE THIS MORNING FELL AND HIT HER LEFT OCCIPUT, WITH THE STATES HE GOT HOME HE SAID HE FOUND HER SITTING IN A CHAIR. SHE HAS HAD NO COMPLAINTS OF OTHER THAN A MILD HEADACHE NO CHAKRABORTY OR RACCOON SIGN AND NIH IS 0. SHE STATES SHE TAKES KEPPRA A 1000 MG B.I.D. AND STATES SHE IS CURRENT HOWEVER DOES NOT HAVE A LOCAL NEUROLOGIST. Allergies: Coded Allergies: No Known Drug Allergies (Verified Allergy, Unknown, 07/12/20) Home Meds Active Scripts Pantoprazole Sodium (Pantoprazole Sodium) 40 Mg Tablet.dr, 40 MG PO DAILY, #10 TAB 0 Refills Prov:YOUSIF MCINTOSH MD 10/16/20 Reported Medications Hydromorphone HCl (Dilaudid) 4 Mg Tab, 4 MG PO AM, TAB 03/04/24 Esomeprazole Magnesium (Esomeprazole Magnesium) 20 Mg Capsule.dr, 1 CAP PO DAILY for acid reflux for 30 Days, #30 CAP 0 Refills 03/04/24 Minocycline HCl (Minocycline HCl) 100 Mg Capsule, 1 CAP PO BID for 30 Days, #60 CAP 0 Refills 03/04/24 Ziprasidone HCl (Ziprasidone HCl) 20 Mg Capsule, 1 CAP PO BID for 30 Days, #60 CAP 0 Refills 03/04/24 Quetiapine Fumarate (Quetiapine Fumarate) 25 Mg Tablet, 1 TAB PO HS for 30 Days, #30 TAB 0 Refills 03/04/24 Dicyclomine HCl (Dicyclomine HCl) 10 Mg Capsule, 10 MG PO Q4HPRN, CAP 03/04/24 Promethazine HCl (Promethazine HCl) 50 Mg Tablet, 50 MG PO Q6HPRN, TAB 03/04/24 Sertraline HCl (Sertraline HCl) 100 Mg Tablet, 1 TAB PO DAILY for 30 Days, #30 TAB 0 Refills 03/04/24 [Keppra] No Conflict Check, 150 MG PO BID 03/04/24 Alprazolam (Alprazolam) 2 Mg Tablet, 2 MG PO TID, TAB 06/02/19 Past Medical History Past Medical History: Anxiety, Diabetes-Type II, Hypertension, Pancreatitis, Other Additional Past Medical Hx: SPINAL BIFIDA; SBO, SELF CATH, MRSA,CRE Surgical History: Appendectomy, Cholecystectomy, Other Surgical History Other: SHUNT TO HEAD; ABD SX PSYCH History: no pertinent psych hx Family History: Negative Social History: Negative, Lives with family, Other History: Not Applicable RN Note Reviewed/Agreed w/PFSH: Yes Review of System Dictation CONSTITUTIONAL: NEGATIVE EXCEPT FOR HPI HEAD/FACE: NEGATIVE EXCEPT FOR HPI EENT: NEGATIVE EXCEPT FOR HPI RESPIRATORY: NEGATIVE EXCEPT FOR HPI GASTROINTESTINAL/ABDOMINAL: NEGATIVE EXCEPT FOR HPI GENITOURINARY: NEGATIVE EXCEPT FOR HPI MUSCULOSKELETAL: NEGATIVE EXCEPT FOR HPI INTEGUMENTARY: NEGATIVE EXCEPT FOR HPI NEUROLOGICAL/PSYCH: NEGATIVE EXCEPT FOR HPI SEIZURE/LEFT TEMPOROPARIETAL HEADACHE HEMATOLOGIC/LYMPHATIC: NEGATIVE EXCEPT FOR HPI ALL SYSTEMS NEGATIVE, EXCEPT NOTED ABOVE. 13 POINT REVIEW OF SYSTEMS ASSESSED AND ALL NEGATIVE EXCEPT FOR ABOVE. Initial Vital Sign VS Vital Signs Date Time Temp Pulse Resp B/P (MAP) Pulse Ox O2 Delivery O2 Flow Rate FiO2 04/06/24 14:05 98.8 115 18 142/93 98 Room Air 0 04/06/24 17:28 21 Physical Exam Dictation VITAL SIGNS REVIEWED GENERAL APPEARANCE: ALERT, ORIENTED X 3, NO ACUTE DISTRESS, WELL DEVELOPED, NOURISHED. HEAD AND FACE: MILD LEFT TEMPOROPARIETAL TENDERNESS. NO CHAKRABORTY OR RACCOON SIGN NO HEMOTYMPANUM EYES: PERRL, PINK CONJUNCTIVAS, EYELID NO TRAUMA, ANTERIOR CHAMBER WITH ARCUS SENILIS. EARS: PINNAS INTACT AND NO SIGNS OF TRAUMA OR ERYTHEMA EAR CANALS CLEAR AND NO DISCHARGE TM NO ERYTHEMA NO HEMOTYMPANUM NOSE: NO DISCHARGE, NO BLEEDING. OROPHARYNX: MOUTH NORMAL, TONGUE PINK, PHARYNX CLEAR,NO ERYTHEMA, TONSILS NO EXUDATES, NO ABSCESSES NOTED, MUCOUS MEMBRANE MOIST NECK: SUPPLE, NON-TENDER, NO THYROMEGALY, NO MASSES, NO JVD, NO BRUITS BREAST:DEFERRED CHEST:NO TENDERNESS, NO CREPITUS, NO PARADOXICAL MOVEMENT, NO RETRACTIONS LUNGS:CLEAR, WELL-VENTILATED, SYMMETRIC, NO RALES, NO WHEEZING, NO RHONCHI, NO STRIDOR, GOOD BREATH SOUNDS BILATERALLY HEART: REGULAR RATE, REGULAR RHYTHM, NO MURMUR, NO GALLOPS VASCULAR: NO PERIPHERAL EDEMA, ABDOMEN: SOFT, POSITIVE BOWEL SOUNDS, NONDISTENDED, NO GUARDING, NONTENDER, NO REBOUND, NO MASSES NO HEPATOMEGALY, NO SPLENOMEGALY, NO RUANO'S SIGN, NO HERNIAS. RECTAL: DEFERRED GENITAL: DEFERRED NEUROLOGICAL: NORMAL SPEECH, MOTOR FUNCTION INTACT, SENSORY FUNCTION INTACT MUSCULOSKELETAL: NECK NONTENDER, FULL RANGE OF MOTION, BACK NONTENDER, FULL RANGE OF MOTION, EXTREMITIES: NONTENDER, FULL RANGE OF MOTION SKIN: COLOR PINK, DRY, NO TURGOR, NO RASH, NO LACERATIONS, NO ABRASIONS, NO CONTUSIONS. LYMPHATIC: DEFERRED Results (Laboratory/Radiology) Laboratory/Radiology Laboratory Tests Test 04/06/24 14:27 04/06/24 14:42 White Blood Count 9.7 K/uL (4.8-10.8) Red Blood Count 4.25 MIL/uL (4.00-5.50) Hemoglobin 12.0 g/dL (12.0-16.0) Hematocrit 37.7 % (36-48) Mean Corpuscular Volume 88.7 fL (79-99) Mean Corpuscular Hemoglobin 28.2 pg (27.0-33.0) Mean Corpuscular Hemoglobin Concent 31.8 g/dL (32.0-36.0) L Red Cell Distribution Width 15.1 % (11.0-15.5) Platelet Count 273 K/uL (130-400) Mean Platelet Volume 10.4 fL (7.5-10.5) Immature Granulocyte % (Auto) 0.4 % (0-1) Neutrophils (%) (Auto) 91.8 % (40.0-77.0) H Lymphocytes (%) (Auto) 4.5 % (21.0-51.0) L Monocytes (%) (Auto) 2.7 % (3.0-13.0) L Eosinophils (%) (Auto) 0.3 % (0.0-8.0) Basophils (%) (Auto) 0.3 % (0.0-5.0) Neutrophils # (Auto) 8.9 K/uL (1.8-7.7) H Lymphocytes # (Auto) 0.4 K/uL (1.0-4.8) L Monocytes # (Auto) 0.3 K/uL (0.1-1.0) Eosinophils # (Auto) 0.03 K/uL (0.00-0.70) Basophils # (Auto) 0.03 K/uL (0.00-0.20) Absolute Immature Granulocyte (auto 0.04 K/uL (0-1) Nucleated Red Blood Cells 0.0 % (0.0-0.19) White Cell Morphology Comment See comments Sodium Level 139 mmol/L (136-145) Potassium Level 2.7 mmol/L (3.5-5.1) *L Chloride Level 102 mmol/L (101-111) Carbon Dioxide Level 26 mmol/L (21-32) Blood Urea Nitrogen 1 mg/dL (7-18) L Creatinine 0.8 mg/dL (0.5-1.0) Glomerular Filtration Rate Calc 93 mL/min (>90) Random Glucose 130 mg/dL (70-105) H Total Calcium 9.1 mg/dL (8.5-10.1) Serum Test, Qualitative NEGATIVE (NEGATIVE) Urine Color LIGHT-YELLOW (YELLOW) Urine Appearance CLOUDY (CLEAR) H Urine pH 6.5 (5.0-8.0) Urine Specific [place] 1.006 (1.001-1.031) Urine Protein 50 mg/dL (NEGATIVE) H Urine Glucose (UA) NEGATIVE mg/dL (NEGATIVE) Urine Ketones NEGATIVE mg/dL (NEGATIVE) Urine Occult Blood +- (TRACE) (NEGATIVE) H Urine Nitrate NEGATIVE (NEGATIVE) Urine Bilirubin NEGATIVE mg/dL (NEGATIVE) Urine Urobilinogen 0.2 mg/dL (0.2-1.0) Urine Leukocyte Esterase 25 Eliceo/uL (NEGATIVE) H Urine RBC 2-5 /HPF (0-1) H Urine WBC 26-50 /HPF (0-1) H Urine Squamous Epithelial Cells FEW /HPF (0-2) Urine Bacteria MOD /HPF (None Seen) Urine Yeast FEW /HPF (None Seen) ED Course ED Course Orders Procedure Category Date Status Time Levetiracetam 500 PHA 04/06/24 Complete Mg/5 Ml Sd V (Keppra 5 14:00 Cbc With Differential LAB 04/06/24 Complete 13:32 Basic Metabolic Panel LAB 04/06/24 Complete 13:32 Acetaminophen 500mg PHA 04/06/24 Complete Tab (Tylenol 500mg T 14:00 Testing, LAB 04/06/24 Complete Serum Hcg 13:35 Ct Head/Brain W/O CT 04/06/24 Resulted Contrast 13:35 Urinalysis Profile LAB 04/06/24 Complete 14:40 Culture Urine HANK 04/06/24 In Process 15:21 Potassium Bicarb/Cit PHA 04/06/24 Complete Ac 25meq (K-Lyte Ta 16:00 Levetiracetam 500 PHA 04/06/24 Complete Mg/5 Ml Sd V (Keppra 5 16:00 Hydromorphone 1 Mg PHA 04/06/24 Complete Inj (Dilaudid 1mg Inj 17:30 Levetiracetam 500 Mg PHA 04/06/24 In Process Tablet (Keppra 500 18:00 Current Medications Medications (Trade) Dose Ordered Sig/Sandi Route PRN Reason Start Time Stop Time Status Last Admin Dose Admin Acetaminophen (TYLenol 500MG TAB) 1,000 mg ONCE ONCE PO 04/06/24 14:00 04/06/24 14:01 DC 04/06/24 16:33 Hydromorphone HCl (DiLAUDid 1MG INJ) 1 mg ONCE ONCE IVP 04/06/24 17:30 04/06/24 17:31 DC Levetiracetam (kepPRA 500 MG TABLET) 1,500 mg ONCE PO 04/06/24 18:00 05/06/24 17:59 Levetiracetam (kepPRA 500 MG/5 ML SD VIAL) 1,000 mg ONCE IV 04/06/24 14:00 04/06/24 15:39 DC Levetiracetam (kepPRA 500 MG/5 ML SD VIAL) 1,000 mg ONCE ONCE IV 04/06/24 16:00 04/06/24 17:42 DC Potassium Bicarbonate (K-Lyte Tablet Eff 25 Meq Tablet.eff) 50 meq ONCE ONCE PO 04/06/24 16:00 04/06/24 16:01 DC 04/06/24 16:32 Vital Signs Date Time Temp Pulse Resp B/P (MAP) Pulse Ox O2 Delivery O2 Flow Rate FiO2 04/06/24 17:28 98.8 94 16 118/85 97 Room Air* 0 21 04/06/24 14:05 98.8 115 18 142/93 98 Room Air 0 1745 PATIENT NEUROLOGICALLY INTACT SPEECH CLEAR PATIENT HAS BEEN OBSERVED NOW FOR SEVERAL HOURS AND REMAINS NEUROLOGICALLY INTACT [place] [facility] [place] FOR AN IV WE WILL GIVE HER KEPPRA 1500 MG P.O. NOW BY MOUTH POTASSIUM HAS BEEN REPLACED AND SHE WILL BE REFERRED BACK TO HER PRIMARY CARE DOCTOR FOR NEUROLOGY CONSULTATION AND MANAGEMENT OF HER SEIZURES.. Medical Decision Making MDM MDM: DIFFERENTIAL DIAGNOSIS: CLOSED HEAD INJURY/FALL/SCALP CONTUSION/ELECTROLYTE IMBALANCE/DEHYDRATION/SEIZURE RATIONALE: TESTS CONSIDERED AND ORDERED SECONDARY TO SHARED DECISION MAKING INCLUDE: LABS PREVIOUS OUTSIDE RECORDS REVIEWED: OLD ER VISITS. REVIEWED RISK OF COMPLICATION AND/OR MORBIDITY OR MORTALITY OF PATIENT MANAGEMENT: NONE MEDICATIONS-PER MEDICATION RECONCILIATION SEE NURSE'S NOTES NEED FOR HOSPITALIZATION: PATIENT DOES NOT MEET CRITERIA FOR HOSPITALIZATION. NO NEED FOR EMERGENCY MAJOR/MINOR SURGERY: NO THERE ARE NO SOCIAL CONCERNS WITH THIS PATIENT. PATIENT DOES NOT HAVE A NEUROLOGIST STATES SHE WAS SEEING DR. SIERRA BUT HE FIRED HER BECAUSE SHE WAS MISSING TOO MANY APPOINTMENT PRESCRIPTION DRUG MANAGEMENT AUGMENTIN 875 PRESCRIPTIONS WILL INCLUDE SYMPTOMATIC CARE PATIENT'S PRIOR EXTERNAL MEDICAL RECORDS FROM OTHER ER VISITS WERE REVIEWED BY ME INDICATED. PRIOR TESTING AND RESULTS FROM PREVIOUS VISITS WERE REVIEWED. PRIOR TESTS WERE TAKEN INTO ACCOUNT WITH MEDICAL DECISION MAKING AND RESOURCE UTILIZATION, INDEPENDENT HISTORIAN/HISTORIANS WERE USED TO OBTAIN COMPLETE MEDICAL HISTORY. I INDEPENDENTLY INTERPRETED THE TEST THAT WERE PERFORMED, RESULTS WERE REVIEWED BY ME AND CONSIDERED FINDINGS ON RADIOLOGY IF ORDERED. MEDICAL MANAGEMENT AND EXAMINATION INTERPRETATION DISCUSSIONS WERE HAD BY ME WITH OTHER QUALIFIED HEALTHCARE PROFESSIONALS INDICATED FOR THE PATIENT'S CARE. DX & DISP Disposition: Discharge Departure Impression: Primary Impression: Hypokalemia Additional Impressions: Acute cystitis with hematuria, Contusion of scalp, Seizure Condition: Stable Scripts Potassium Chloride (K-Dur/Klor-Con) 20 Meq Ertab 20 MEQ PO BID for 5 Days, #10 TAB.EC Prov: WADE FUCHS [employer] ENGINEERING TEACHER 04/06/24 Amoxicillin/Potassium Clav (Amox Tr-K Clv 875-125 mg Tab) 875 Mg-125 Mg Tablet 1 EACH PO BID for 7 Days, #14 TAB 0 Refills Prov: WADE FCUHS PETROLEUM ENGINEERING TEACHER 04/06/24 Additional Instructions: FOLLOW-UP WITH PRIMARY CARE PROVIDER IN 1 TO 2 DAYS. TAKE MEDICATIONS DIRECTED HERE IN THE EMERGENCY ROOM. OKAY TO CONTINUE HOME MEDICATIONS UNLESS OTHERWISE DISCUSSED DURING YOUR VISIT IN THE EMERGENCY ROOM TODAY. RETURN TO YOUR NEAREST EMERGENCY ROOM IF SYMPTOMS WORSEN OR IF THERE IS NO IMPROVEMENT. CALL 911 IF YOU NEED IMMEDIATE ASSISTANCE. TAKE TYLENOL OR MOTRIN [id number] NEEDED AND IF NO CONTRAINDICATIONS ARE PRESENT. INCREASE ORAL HYDRATION. A WOUND CULTURE OR URINE CULTURE WAS ORDERED HERE IN THE EMERGENCY ROOM DEPARTMENT PLEASE FOLLOW-UP WITH PRIMARY CARE PROVIDER AND ADVISE THEM TO GET REPEAT PORTS FROM OUR FACILITY. IF YOU HAD ANY STEPHAN WRAP/SPLINTS THAT WERE APPLIED HERE, PLEASE DO NOT REMOVE THEM UNTIL YOU SEE YOUR PRIMARY CARE OR SPECIALTY. TAKE ANTIBIOTICS DIRECTED UNTIL GONE. CONTINUE YOUR KEPPRA DIRECTED BY YOUR PRIMARY CARE DOCTOR, SEE HIM TOMORROW OR THE NEXT DAY EVERY FOR REFERRAL TO NEUROLOGIST. TAKE POTASSIUM DIRECTED UNTIL GONE. Referrals: FRANKI VILLAFANA MD (PCP) Time of Disposition: 17:46 I have reviewed the case, and I agree with, Diagnosis and Plan WADE FUCHS NP Apr 06, 2024 13:35
[2024-04-06] MEDS ORDERED: leveTIRACEtam 500 MG/5 ML SD VIAL IV SCH (14:00)
--- NOTE | 2024-04-06 14:04 | NUR ---
PATIENT IN ER LOBBY, PENDING TEST RESULTS FOR CT EXAM.
[2024-04-06 14:49] LABS: BASOPHILS # (AUTO) 0.03 K/uL (0.00-0.20); BASOPHILS % (AUTO) 0.3 % (0.0-5.0); EOSINOPHILS # (AUTO) 0.03 K/uL (0.00-0.70); EOSINOPHILS % (AUTO) 0.3 % (0.0-8.0); HEMATOCRIT 37.7 % (36-48); IMMATURE GRANULOCYTE ABSOLUTE 0.04 K/uL (0-1); LYMPHOCYTES # (AUTO) 0.4 K/uL (1.0-4.8); LYMPHOCYTES % (AUTO) 4.5 % (21.0-51.0); MEAN CORPUSCULAR HEMOGLOBIN 28.2 pg (27.0-33.0); MEAN CORPUSCULAR HGB CONC 31.8 g/dL (32.0-36.0); MEAN CORPUSCULAR VOLUME 88.7 fL (79-99); MONOCYTES # (AUTO) 0.3 K/uL (0.1-1.0); MONOCYTES % (AUTO) 2.7 % (3.0-13.0); NEUTROPHILS # (AUTO) 8.9 K/uL (1.8-7.7); NEUTROPHILS % (AUTO) 91.8 % (40.0-77.0); PLATELET COUNT (AUTO) 273 K/uL (130-400); RED BLOOD CELL COUNT(AUTO) 4.25 MIL/uL (4.00-5.50); RED CELL DISTRIBUTION WIDTH 15.1 % (11.0-15.5); WHITE BLOOD COUNT (AUTO) 9.7 K/uL (4.8-10.8)
[2024-04-06 14:59] LABS: CREATININE 0.8 mg/dL (0.5-1.0)
[2024-04-06 15:02] LABS: APPEARANCE,URINE CLOUDY (CLEAR); BILIRUBIN,URINE NEGATIVE (NEGATIVE); COLOR,URINE LIGHT-YELLOW (YELLOW); GLUCOSE, URINE (UA) NEGATIVE (NEGATIVE); KETONES,URINE NEGATIVE (NEGATIVE); LEUKOCYTE ESTERASE ,URINE 25 Leu/uL (NEGATIVE); NITRATE,URINE NEGATIVE (NEGATIVE); PH,URINE 6.5 (5.0-8.0); PROTEIN,URINE 50 mg/dL (NEGATIVE); UROBILINOGEN,URINE 0.2 mg/dL (0.2-1.0)
[2024-04-06 15:11] LABS: POTASSIUM 2.7 mmol/L (3.5-5.1)
[2024-04-06 15:12] LABS: ADD UA MICROSCOPIC YES
[2024-04-06 15:16] LABS: BACTERIA,URINE MOD /HPF (None Seen); MUCUS,URINE RARE LPF (None Seen); SQUAMOUS EPITHELIAL CELL,UR FEW /HPF (0-2); WBC,URINE 26-50 /HPF (0-1); YEAST,URINE BUDDING FEW /HPF (None Seen)
--- NOTE | 2024-04-06 15:51 | HMCIMG ---
CT HEAD/BRAIN W/O CONTRAST HISTORY: Seizures COMPARISON: None TECHNIQUE: Multiple sequential axial images of the head were obtained from the base of the skull through vertex. Patient was not given contrast through intravenous route. FINDINGS: Shunt tube is seen entering from the right. The ventricles and extraventricular CSF spaces are nondilated for patient's age. There is no midline shift, mass effect or herniation. No acute intracranial bleed is seen. Visualized portion of the paranasal sinuses are grossly within normal limits. IMPRESSION: 1. No acute intracranial bleed is seen. CT was performed with one or more following dose reduction techniques: automated exposure control, adjustment of the mA and kv according to patient's size, or use of a iterative reconstruction technique.
--- NOTE | 2024-04-06 16:06 | NUR ---
1600 START OF CARE.
[2024-04-06] MEDS: PoTASSium BIcarbonate/CIT AC 25 MEQ TABLET.EFF PO ONE (16:32)
[2024-04-06] MEDS: acetaMINOPHEN 500 MG TABLET PO ONE (16:33)
[2024-04-06] MEDS: leveTIRACEtam 500 MG/5 ML SD VIAL IV ONE (16:33)
[2024-04-06 17:28] VITALS: BP 118/85; PULSE 94; RESP 16; TEMP 98.7; O2SAT 97
[2024-04-06] MEDS ORDERED: AMOX1TAB16 PO (17:47)
[2024-04-06] MEDS ORDERED: POTA-192 PO (17:48)
[2024-04-06] MEDS: leveTIRACEtam 500 MG TABLET PO SCH (17:49)
[2024-04-06] MEDS: hydroMORPHone 1 MG INJ IVP ONE (17:49)
--- NOTE | 2024-04-06 18:04 | NUR ---
PT AAOX4 STABLE NO DISTRESS VITALS WNL PT PAIN MEDICATED PRIOR TO DISHCARGED STATES PAIN IS BETTER. PT GIVEN INSTRUCTIONS FOR HOME, RX EMAILED TO PT PHARMACY. PT IV D/C CATHETER INTACT, PT TAKEN OUT TO LOBBY DRIVEN HOME BY SPOUSE.
== END 2024-04-06 18:18 | disposition home or self-care (01) ==
LOC: EDH 13:14
DX: S00.03XA Contusion of scalp, initial encounter (principal); R56.9 Unspecified convulsions; N30.01 Acute cystitis with hematuria; E87.6 Hypokalemia; E11.9 Type 2 diabetes mellitus without complications; F41.9 Anxiety disorder, unspecified; I10 Essential (primary) hypertension; Z79.899 Other long term (current) drug therapy; Z90.49 Acquired absence of other specified parts of digestive tract; W18.39XA Other fall on same level, initial encounter; Y93.89 Activity, other specified; Y92.89 Other specified places as the place of occurrence of the external cause; Y99.8 Other external cause status
CPT/HCPCS: 99285; 96374; 70450; 80048; 84703; 85025; 87086 ×2; 87186; 81001; 36415; J1171; J1953

== ENCOUNTER 2024-05-05 15:54 | Emergency (ER) | payer MEDICAID ==
[~2024-05-05] VITALS: Ht 147.3 cm; Wt 64.9 kg
[~2024-05-05 15:54] MED LIST changes: +AMOX1TAB16 PO; +DICY-20 PO; -DICY10CA2 PO; +POTA-192 PO
[2024-05-05] MEDS: acetaMINOPHEN 500 MG TABLET PO ONE (16:00)
--- NOTE | 2024-05-05 16:05 | ERN ---
ED Note History of Present Illness Stated Complaint: MULTIPLE COMPLAINTS Chief Complaint: UTI with Fever Time Seen by MD: 15:54 Dictation: PATIENT IS A 43-YEAR-OLD FEMALE COMING IN TODAY WITH DYSURIA AND STATES SHE HAS HAD FEVER FOR SEVERAL DAYS. DENIES NAUSEA VOMITING BACK PAIN. STATES SHE HAS A HISTORY OF FREQUENT URINARY TRACT INFECTIONS DUE TO SPINA BIFIDA AND SELF CATHETERIZING. PATIENT WAS SEEN HERE APPROXIMATELY TWO WEEKS AGO AND DIAGNOSED WITH A UTI, TREATED STATES SHE FELT BETTER HOWEVER SHE NEVER WENT TO FOLLOW UP WITH HER PRIMARY CARE DOCTOR BECAUSE SHE WAS TOO WEAK. PATIENT IS AFEBRILE IN TRIAGE. Allergies: Coded Allergies: No Known Drug Allergies (Verified Allergy, Unknown, 07/12/20) Home Meds Active Scripts Potassium Chloride (K-Dur/Klor-Con) 20 Meq Ertab, 20 MEQ PO BID for 5 Days, #10 TAB.EC Prov:WADE FUCHS NP 04/06/24 Amoxicillin/Potassium Clav (Amox Tr-K Clv 875-125 mg Tab) 875 Mg-125 Mg Tablet, 1 EACH PO BID for 7 Days, #14 TAB 0 Refills Prov:WADE FUCHS NP 04/06/24 Pantoprazole Sodium (Pantoprazole Sodium) 40 Mg Tablet.dr, 40 MG PO DAILY, #10 TAB 0 Refills Prov:YOUSIF MCINTOSH MD 10/16/20 Reported Medications Hydromorphone HCl (Dilaudid) 4 Mg Tab, 4 MG PO AM, TAB 03/04/24 Esomeprazole Magnesium (Esomeprazole Magnesium) 20 Mg Capsule.dr, 1 CAP PO DAILY for acid reflux for 30 Days, #30 CAP 0 Refills 03/04/24 Minocycline HCl (Minocycline HCl) 100 Mg Capsule, 1 CAP PO BID for 30 Days, #60 CAP 0 Refills 03/04/24 Ziprasidone HCl (Ziprasidone HCl) 20 Mg Capsule, 1 CAP PO BID for 30 Days, #60 CAP 0 Refills 03/04/24 Quetiapine Fumarate (Quetiapine Fumarate) 25 Mg Tablet, 1 TAB PO HS for 30 Days, #30 TAB 0 Refills 03/04/24 Dicyclomine HCl (Dicyclomine HCl) 10 Mg Capsule, 10 MG PO Q4HPRN, CAP 03/04/24 Promethazine HCl (Promethazine HCl) 50 Mg Tablet, 50 MG PO Q6HPRN, TAB 03/04/24 Sertraline HCl (Sertraline HCl) 100 Mg Tablet, 1 TAB PO DAILY for 30 Days, #30 TAB 0 Refills 03/04/24 [Keldra] No Conflict Check, 150 MG PO BID 03/04/24 Alprazolam (Alprazolam) 2 Mg Tablet, 2 MG PO TID, TAB 06/02/19 Past Medical History Past Medical History: Pancreatitis, Seizure Additional Past Medical Hx: SPINA BIFIDA Surgical History: Cholecystectomy, Other Surgical History Other: ABD SX, [employer]ING SHUNT, J-TUBE, COLOSTOMY, SPINAL SX Family History: Negative Social History: Negative, Lives with family, Other History: Not Applicable : 0 RN Note Reviewed/Agreed w/PFSH: Yes Review of System Dictation CONSTITUTIONAL: NEGATIVE EXCEPT FOR HPI FEVER CHILLS HEAD/FACE: NEGATIVE EXCEPT FOR HPI EENT: NEGATIVE EXCEPT FOR HPI RESPIRATORY: NEGATIVE EXCEPT FOR HPI GASTROINTESTINAL/ABDOMINAL: NEGATIVE EXCEPT FOR HPI GENITOURINARY: NEGATIVE EXCEPT FOR HPI DYSURIA MUSCULOSKELETAL: NEGATIVE EXCEPT FOR HPI INTEGUMENTARY: NEGATIVE EXCEPT FOR HPI NEUROLOGICAL/PSYCH: NEGATIVE EXCEPT FOR HPI HEMATOLOGIC/LYMPHATIC: NEGATIVE EXCEPT FOR HPI ALL SYSTEMS NEGATIVE, EXCEPT NOTED ABOVE. 13 POINT REVIEW OF SYSTEMS ASSESSED AND ALL NEGATIVE EXCEPT FOR ABOVE. Initial Vital Sign VS Vital Signs Date Time Temp Pulse Resp B/P (MAP) Pulse Ox O2 Delivery O2 Flow Rate FiO2 05/05/24 16:12 98.1 85 20 142/84 99 Room Air 0 Physical Exam Dictation VITAL SIGNS REVIEWED GENERAL APPEARANCE: ALERT, ORIENTED X 3, MILD ACUTE DISTRESS, WELL DEVELOPED, NOURISHED. HEAD AND FACE: NON-TRAUMATIC. EYES: PERRL, PINK CONJUNCTIVAS, EYELID NO TRAUMA, ANTERIOR CHAMBER WITH ARCUS SENILIS. EARS: PINNAS INTACT AND NO SIGNS OF TRAUMA OR ERYTHEMA EAR CANALS CLEAR AND NO DISCHARGE TM NO ERYTHEMA NOSE: NO DISCHARGE, NO BLEEDING. OROPHARYNX: MOUTH NORMAL, TONGUE PINK, PHARYNX CLEAR,NO ERYTHEMA, TONSILS NO EXUDATES, NO ABSCESSES NOTED, MUCOUS MEMBRANE MOIST NECK: SUPPLE, NON-TENDER, NO THYROMEGALY, NO MASSES, NO JVD, NO BRUITS BREAST:DEFERRED CHEST:NO TENDERNESS, NO CREPITUS, NO PARADOXICAL MOVEMENT, NO RETRACTIONS LUNGS:CLEAR, WELL-VENTILATED, SYMMETRIC, NO RALES, NO WHEEZING, NO RHONCHI, NO STRIDOR, GOOD BREATH SOUNDS BILATERALLY HEART: REGULAR RATE, REGULAR RHYTHM, NO MURMUR, NO GALLOPS VASCULAR: NO PERIPHERAL EDEMA, ABDOMEN: SOFT, POSITIVE BOWEL SOUNDS, NONDISTENDED, NO GUARDING, NONTENDER, NO REBOUND, NO MASSES NO HEPATOMEGALY, NO SPLENOMEGALY, NO RUANO'S SIGN, NO HERNIAS. RECTAL: DEFERRED GENITAL: DEFERRED NEUROLOGICAL: NORMAL SPEECH, MOTOR FUNCTION INTACT, SENSORY FUNCTION INTACT MUSCULOSKELETAL: NECK NONTENDER, FULL RANGE OF MOTION, BACK NONTENDER, FULL RANGE OF MOTION, EXTREMITIES: NONTENDER, FULL RANGE OF MOTION SKIN: COLOR PINK, DRY, NO TURGOR, NO RASH, NO LACERATIONS, NO ABRASIONS, NO CONTUSIONS. LYMPHATIC: DEFERRED Results (Laboratory/Radiology) Laboratory/Radiology Laboratory Tests Test 05/05/24 18:52 Urine Color LIGHT-YELLOW (YELLOW) Urine Appearance CLEAR (CLEAR) Urine pH 7.0 (5.0-8.0) Urine Specific [place] 1.004 (1.001-1.031) Urine Protein NEGATIVE mg/dL (NEGATIVE) Urine Glucose (UA) NEGATIVE mg/dL (NEGATIVE) Urine Ketones NEGATIVE mg/dL (NEGATIVE) Urine Occult Blood NEGATIVE (NEGATIVE) Urine Nitrate NEGATIVE (NEGATIVE) Urine Bilirubin NEGATIVE mg/dL (NEGATIVE) Urine Urobilinogen 0.2 mg/dL (0.2-1.0) Urine Leukocyte Esterase 25 Eliceo/uL (NEGATIVE) H Urine RBC 0-1 /HPF (0-1) Urine WBC 2-5 /HPF (0-1) H Urine Squamous Epithelial Cells RARE /HPF (0-2) Urine Transitional Epithelial Cells RARE /HPF (None Seen) Urine Bacteria RARE /HPF (None Seen) Labs Reviewed?: Yes ED Course ED Course Orders Procedure Category Date Status Time Straight Cath If No CPOE 05/05/24 Transmitted Void X6hrs 16:00 Urinalysis Profile LAB 05/05/24 Complete 16:00 Acetaminophen 500mg PHA 05/05/24 Complete Tab (Tylenol 500mg T 16:00 Acetaminophen With PHA 05/05/24 Transmitted Codeine (Tylenol-Code 19:30 Current Medications Medications (Trade) Dose Ordered Sig/Sandi Route PRN Reason Start Time Stop Time Status Last Admin Dose Admin Acetaminophen (TYLenol 500MG TAB) 1,000 mg ONCE ONCE PO 05/05/24 16:00 05/05/24 16:02 DC Vital Signs Date Time Temp Pulse Resp B/P (MAP) Pulse Ox O2 Delivery O2 Flow Rate FiO2 05/05/24 16:12 98.1 85 20 142/84 99 Room Air 0 1900/ patient is requesting pain medicine besides Tylenol. She states normally when she has dysuria she gets Dilaudid or morphine. I told her I would not be prescribing any this for her dysuria, I offered her a [place] since she states she has chronic pain and sees , she said she does not like [place] because it makes her feel funny. 1919 patient we will be given Tylenol No. 3 before she leaves she states she wanted morphine or Dilaudid I told her I would not be given it to her at this time. She states she has some at home and I told her she will be glad to take the Dilaudid when she got home and then see her doctor tomorrow. Medical Decision Making MDM Medical discharge making based on straight cath for urinary symptoms Urine is negative Patient discharged home after be given Tylenol No. Three DX & DISP Disposition: Discharge Departure Impression: Primary Impression: Pelvic pain Condition: Stable Additional Instructions: Follow-up with primary care provider in 1 to 2 days. Take medications as directed here in the emergency room. Okay to continue home medications unless otherwise discussed during your visit in the emergency room today. Return to your nearest emergency room if symptoms worsen or if there is no improvement. Call 911 if you need immediate assistance. Take Tylenol or Motrin [id number] as needed and if no contraindications are present. Increase oral hydration. A wound culture or urine culture was ordered here in the emergency room department please follow-up with primary care provider and advise them to get repeat ports from our facility. If you had any Josafat wrap/splints that were applied here, please do not remove them until you see your primary care or specialty. See your primary care doctor for follow up in 1-2 days. Referrals: FRANKI VILLAFANA MD (PCP) Time of Disposition: 19:22 I have reviewed the case, and I agree with, Diagnosis and Plan WADE FUCHS NP May 05, 2024 16:05
[2024-05-05 16:12] VITALS: BP 142/84; PULSE 85; RESP 20; TEMP 98
--- NOTE | 2024-05-05 18:58 | NUR ---
PT ASKED FOR PAIN MEDICATION FOR PAINFUL URINATION, I TOLD HER [employer] HAS ORDERD TYLENOL, PT STATED ( THEY USUALLY GIVE ME SOME THING STRONGER). I ASKED HER WHAT DO THEY GIVEN YOU HERE? PT STATED ( THEY GIVE ME MORPHINE). I TOLD HER SHE WOULD NEED TO SPEAK TO [employer] WADE ABOUT STRONGER MEDICATION. I ASKED PT DO YOU WANT TYENOL PT REFUSED TYLENOL.
[2024-05-05 19:09] LABS: APPEARANCE,URINE CLEAR (CLEAR); BILIRUBIN,URINE NEGATIVE (NEGATIVE); COLOR,URINE LIGHT-YELLOW (YELLOW); GLUCOSE, URINE (UA) NEGATIVE (NEGATIVE); KETONES,URINE NEGATIVE (NEGATIVE); LEUKOCYTE ESTERASE ,URINE 25 Leu/uL (NEGATIVE); NITRATE,URINE NEGATIVE (NEGATIVE); OCCULT BLOOD,URINE NEGATIVE (NEGATIVE); PROTEIN,URINE NEGATIVE (NEGATIVE); UROBILINOGEN,URINE 0.2 mg/dL (0.2-1.0)
[2024-05-05 19:10] LABS: ADD UA MICROSCOPIC YES
[2024-05-05 19:13] LABS: BACTERIA,URINE RARE /HPF (None Seen); RBC,URINE 0-1 /HPF (0-1); SQUAMOUS EPITHELIAL CELL,UR RARE /HPF (0-2); TRANSITIONAL EPI CELLS,URINE RARE /HPF (None Seen)
[2024-05-05] MEDS: acetaMINOPHEN WITH coDEINE 1 TAB TAB PO ONE (19:29)
== END 2024-05-05 19:29 | disposition home or self-care (01) ==
LOC: EDH 15:54
DX: R10.2 Pelvic and perineal pain (principal); Z79.899 Other long term (current) drug therapy; Z90.49 Acquired absence of other specified parts of digestive tract; Z98.2 Presence of cerebrospinal fluid drainage device
CPT/HCPCS: 81001; 99283

== ENCOUNTER 2024-06-25 01:06 | Emergency (ER) | payer MEDICAID ==
[~2024-06-25] VITALS: Ht 147.3 cm; Wt 64.4 kg
[2024-06-25 02:23] LABS: BASOPHILS # (AUTO) 0.02 K/uL (0.00-0.20); BASOPHILS % (AUTO) 0.2 % (0.0-5.0); EOSINOPHILS # (AUTO) 0.19 K/uL (0.00-0.70); EOSINOPHILS % (AUTO) 2.2 % (0.0-8.0); HEMATOCRIT 35.8 % (36-48); IMMATURE GRANULOCYTE ABSOLUTE 0.02 K/uL (0-1); LYMPHOCYTES % (AUTO) 22.2 % (21.0-51.0); MEAN CORPUSCULAR HEMOGLOBIN 28.9 pg (27.0-33.0); MEAN CORPUSCULAR HGB CONC 32.4 g/dL (32.0-36.0); MEAN CORPUSCULAR VOLUME 89.1 fL (79-99); MONOCYTES # (AUTO) 0.5 K/uL (0.1-1.0); MONOCYTES % (AUTO) 5.1 % (3.0-13.0); NEUTROPHILS # (AUTO) 6.2 K/uL (1.8-7.7); NEUTROPHILS % (AUTO) 70.1 % (40.0-77.0); PLATELET COUNT (AUTO) 228 K/uL (130-400); RED BLOOD CELL COUNT(AUTO) 4.02 MIL/uL (4.00-5.50); RED CELL DISTRIBUTION WIDTH 15.2 % (11.0-15.5); WHITE BLOOD COUNT (AUTO) 8.8 K/uL (4.8-10.8)
[2024-06-25 02:31] LABS: CREATININE 0.9 mg/dL (0.5-1.0)
--- NOTE | 2024-06-25 02:32 | ERN ---
ED Note History of Present Illness Stated Complaint: C/O BLADDER PAIN, STATES UNABLE TO VOID Chief Complaint: Painful Urination Time Seen by MD: 01:33 Time Seen by Midlevel: 01:36 Dictation: 43-YEAR-OLD FEMALE WITH A HISTORY OF SPINA BIFIDA COMING IN WITH COMPLAINTS OF TROUBLE EMPTYING HER BLADDER STARTED THIS MORNING. PATIENT STATES SHE WAS SEEN TWO DAYS AGO AT ANOTHER HOSPITAL WAS DIAGNOSED WITH A URINARY TRACT INFECTION. 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 PATIENT WAS COMPLAINING OF BACK PAIN, NAUSEA, VOMITING X2 TODAY, NONBLOODY. Allergies: Coded Allergies: No Known Drug Allergies (Verified Allergy, Unknown, 07/12/20) Home Meds Active Scripts Potassium Chloride (K-Dur/Klor-Con) 20 Meq Ertab, 20 MEQ PO BID for 5 Days, #10 TAB.EC Prov:WADE FUCHS NP 04/06/24 Amoxicillin/Potassium Clav (Amox Tr-K Clv 875-125 mg Tab) 875 Mg-125 Mg Tablet, 1 EACH PO BID for 7 Days, #14 TAB 0 Refills Prov:WADE FUCHS NP 04/06/24 Pantoprazole Sodium (Pantoprazole Sodium) 40 Mg Tablet.dr, 40 MG PO DAILY, #10 TAB 0 Refills Prov:YOUSIF MCINTOSH MD 10/16/20 Reported Medications Hydromorphone HCl (Dilaudid) 4 Mg Tab, 4 MG PO AM, TAB 03/04/24 Esomeprazole Magnesium (Esomeprazole Magnesium) 20 Mg Capsule.dr, 1 CAP PO DAILY for acid reflux for 30 Days, #30 CAP 0 Refills 03/04/24 Minocycline HCl (Minocycline HCl) 100 Mg Capsule, 1 CAP PO BID for 30 Days, #60 CAP 0 Refills 03/04/24 Ziprasidone HCl (Ziprasidone HCl) 20 Mg Capsule, 1 CAP PO BID for 30 Days, #60 CAP 0 Refills 03/04/24 Quetiapine Fumarate (Quetiapine Fumarate) 25 Mg Tablet, 1 TAB PO HS for 30 Days, #30 TAB 0 Refills 03/04/24 Dicyclomine HCl (Dicyclomine HCl) 10 Mg Capsule, 10 MG PO Q4HPRN, CAP 03/04/24 Promethazine HCl (Promethazine HCl) 50 Mg Tablet, 50 MG PO Q6HPRN, TAB 03/04/24 Sertraline HCl (Sertraline HCl) 100 Mg Tablet, 1 TAB PO DAILY for 30 Days, #30 TAB 0 Refills 03/04/24 [Keldra] No Conflict Check, 150 MG PO BID 03/04/24 Alprazolam (Alprazolam) 2 Mg Tablet, 2 MG PO TID, TAB 06/02/19 Past Medical History Dictation Patient has a neobladder and is having trouble emptying it. 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, J-TUBE, COLOSTOMY, SPINAL SX Family History: Negative Social History: Negative, Lives with family, Other History: Not Applicable : 0 Review of System Dictation CONSTITUTIONAL: NEGATIVE FOR FEVER,CHILLS, AND WEIGHT LOSS EYES: NEGATIVE FOR INJURY, PAIN,REDNESS, AND DISCHARGE ENT: NEGATIVE FOR INJURY,PAIN OR SWELLING CARDIOVASCULAR: NEGATIVE FOR CHEST PAIN, PALPITATIONS, AND EDEMA RESPIRATORY: NEGATIVE FOR SHORTNESS OF BREATH, COUGH, AND WHEEZING, ABDOMEN/GI: NEGATIVE FOR ABDOMINAL PAIN, NAUSEA, VOMITING, DIARRHEA, AND CONSTIPATION BACK: NEGATIVE FOR INJURY AND PAIN : NEGATIVE FOR INJURY, BLEEDING AND DISCHARGE, TRIPLE STRAIGHT CATH HERSELF, STATES THIS MORNING WAS THE LAST TIME BUT WAS PUS-LIKE" MS/EXTREMITY: NEGATIVE FOR INJURY AND DEFORMITY SKIN: NEGATIVE FOR RASH, AND DISCOLORATION NEURO: NEGATIVE FOR HEADACHE, WEAKNESS, NUMBNESS, TINGLING, AND SEIZURE PSYCH: NEGATIVE FOR SUICIDE IDEATION, HOMICIDAL IDEATION, AND HALLUCINATIONS Review of Systems: was completed Initial Vital Sign VS Vital Signs Date Time Temp Pulse Resp B/P (MAP) Pulse Ox O2 Delivery O2 Flow Rate FiO2 06/25/24 01:11 97.9 79 20 136/96 96 Room Air 06/25/24 03:40 0 21 Physical Exam Dictation GENERAL: AWAKE, ALERT, NAD HEAD/FACE: NORMOCEPHALIC, ATRAUMATIC EYES: PERRL, EOMI, VISION AT BASELINE ENT: ORAL CAVITY CLEAR, TMS CLEAR, NO SIGNS OF INFECTION NECK: TRACHEA MIDLINE, SUPPLE, NO NUCHAL RIGIDITY CARDIOVASCULAR: RRR, NORMAL S1/S2, NO MRGS, NO JVD RESPIRATORY: CTAB, NO RESPIRATORY DISTRESS, NO RALES OR WHEEZES ABDOMEN: SOFT, NON-TENDER, NON-DISTENDED, NORMAL BOWEL SOUNDS, NO GUARDING OR REBOUND. SKIN: WARM, DRY, NORMAL TURGOR, NO RASH MS/EXTREMITY: PULSES EQUAL, NO CYANOSIS, NEUROVASCULAR INTACT, FROM NEURO: COAX4, GCS 15, STRENGTH 5/5, CN 2-12 INTACT, NORMAL CEREBELLAR EXAM, NORMAL GAIT, PSYCH: NORMAL BEHAVIOR, MOOD, AND AFFECT NORMAL Results (Laboratory/Radiology) Laboratory/Radiology Laboratory Tests Test 06/25/24 02:15 06/25/24 03:54 White Blood Count 8.8 K/uL (4.8-10.8) Red Blood Count 4.02 MIL/uL (4.00-5.50) Hemoglobin 11.6 g/dL (12.0-16.0) L Hematocrit 35.8 % (36-48) L Mean Corpuscular Volume 89.1 fL (79-99) Mean Corpuscular Hemoglobin 28.9 pg (27.0-33.0) Mean Corpuscular Hemoglobin Concent 32.4 g/dL (32.0-36.0) Red Cell Distribution Width 15.2 % (11.0-15.5) Platelet Count 228 K/uL (130-400) Mean Platelet Volume 10.2 fL (7.5-10.5) Immature Granulocyte % (Auto) 0.2 % (0-1) Neutrophils (%) (Auto) 70.1 % (40.0-77.0) Lymphocytes (%) (Auto) 22.2 % (21.0-51.0) Monocytes (%) (Auto) 5.1 % (3.0-13.0) Eosinophils (%) (Auto) 2.2 % (0.0-8.0) Basophils (%) (Auto) 0.2 % (0.0-5.0) Neutrophils # (Auto) 6.2 K/uL (1.8-7.7) Lymphocytes # (Auto) 2.0 K/uL (1.0-4.8) Monocytes # (Auto) 0.5 K/uL (0.1-1.0) Eosinophils # (Auto) 0.19 K/uL (0.00-0.70) Basophils # (Auto) 0.02 K/uL (0.00-0.20) Absolute Immature Granulocyte (auto 0.02 K/uL (0-1) Nucleated Red Blood Cells 0.0 % (0.0-0.19) Sodium Level 140 mmol/L (136-145) Potassium Level 3.0 mmol/L (3.5-5.1) *L Chloride Level 104 mmol/L (101-111) Carbon Dioxide Level 25 mmol/L (21-32) Blood Urea Nitrogen 18 mg/dL (7-18) Creatinine 0.9 mg/dL (0.5-1.0) Glomerular Filtration Rate Calc 81 mL/min (>90) Random Glucose 109 mg/dL (70-105) H Total Calcium 8.8 mg/dL (8.5-10.1) Urine Color LIGHT-YELLOW (YELLOW) Urine Appearance CLEAR (CLEAR) Urine pH 7.0 (5.0-8.0) Urine Specific [place] 1.016 (1.001-1.031) Urine Protein 10 mg/dL (NEGATIVE) H Urine Glucose (UA) NEGATIVE mg/dL (NEGATIVE) Urine Ketones NEGATIVE mg/dL (NEGATIVE) Urine Occult Blood NEGATIVE (NEGATIVE) Urine Nitrate NEGATIVE (NEGATIVE) Urine Bilirubin NEGATIVE mg/dL (NEGATIVE) Urine Urobilinogen 0.2 mg/dL (0.2-1.0) Urine Leukocyte Esterase NEGATIVE [place]/uL Urine RBC 2-5 /HPF (0-1) H Urine WBC 11-25 /HPF (0-1) H Urine Squamous Epithelial Cells FEW /HPF (0-2) Urine Non-Squamous Epithelial Cells 3 /HPF (0-2) Urine Bacteria None /HPF (None Seen) Labs Reviewed?: Yes ED Course ED Course Orders Procedure Category Date Status Time Cbc With Differential LAB 06/25/24 Complete 02:01 Basic Metabolic Panel LAB 06/25/24 Complete 02:01 Urinalysis Profile LAB 06/25/24 Complete 02:01 Bladder Scan CPOE 06/25/24 Transmitted 02:01 Morphine 2mg Syg PHA 06/25/24 Complete (Morphine 2mg Syg) 02:02 Ondansetron 4mg Inj PHA 06/25/24 Complete (Zofran 4mg Inj) 02:02 Ondansetron Odt 4mg PHA 06/25/24 Complete Tab (Zofran 4mg Odt) 03:30 Potassium Chl 10% PHA 06/25/24 Complete Elixir 20meq (Kcl 10% 04:00 Culture Urine HANK 06/25/24 In Process 04:19 Current Medications Medications (Trade) Dose Ordered Sig/Sandi Route PRN Reason Start Time Stop Time Status Last Admin Dose Admin Morphine Sulfate (morPHINE 2MG SYG) 2 mg ONCE STAT IVP 06/25/24 02:02 06/25/24 02:05 DC 06/25/24 04:01 Ondansetron HCl (zoFRAN 4MG INJ) 4 mg ONCE STAT IVP 06/25/24 02:02 06/25/24 02:05 DC Ondansetron HCl (zoFRAN 4MG ODT) 4 mg ONCE ONCE SL 06/25/24 03:30 06/25/24 03:33 DC 06/25/24 04:17 Potassium Chloride (KCl 10% Elixir 20meq/15ml) 20 meq ONCE ONCE PO 06/25/24 04:00 06/25/24 04:01 DC 06/25/24 04:17 Vital Signs Date Time Temp Pulse Resp B/P (MAP) Pulse Ox O2 Delivery O2 Flow Rate FiO2 06/25/24 03:40 98.6 75 18 125/79 98 Room Air* 0 21 06/25/24 01:11 97.9 79 20 136/96 96 Room Air Patient's urine analysis is negative for infection the patient's white blood cell count is normal. We were able to catheterize the patient and remove the urine from the neobladder and the patient did feel better. I think she is safe for discharge I discussed this with the patient and she is ready to go home. Medical Decision Making MDM Differential diagnosis for this patient is a urinary tract obstruction or a urinary tract infection. DX & DISP Disposition: Discharge Departure Impression: Primary Impression: Urinary obstruction Condition: Stable Additional Instructions: Follow-up with your regular doctor as already scheduled a week from today please return if you have trouble self catheterizing again. Continue taking the antibiotics you are on now. Referrals: FRANKI VILLAFANA MD (PCP) JUNE BEAULIEU NP Jun 25, 2024 02:32 ISABELL MAYEN MD Jun 25, 2024 05:09
--- NOTE | 2024-06-25 03:50 | NUR ---
BLADDER SCANNER READING APRROX [id number]
[2024-06-25] MEDS: ondanSETRON 4MG INJ IVP STA (04:01)
[2024-06-25] MEDS: morPHINE 2 MG SYG IVP STA (04:01)
[2024-06-25 04:10] LABS: APPEARANCE,URINE CLEAR (CLEAR); BILIRUBIN,URINE NEGATIVE (NEGATIVE); COLOR,URINE LIGHT-YELLOW (YELLOW); GLUCOSE, URINE (UA) NEGATIVE (NEGATIVE); KETONES,URINE NEGATIVE (NEGATIVE); LEUKOCYTE ESTERASE ,URINE NEGATIVE Leu/uL (NEGATIVE); NITRATE,URINE NEGATIVE (NEGATIVE); OCCULT BLOOD,URINE NEGATIVE (NEGATIVE); PROTEIN,URINE 10 mg/dL (NEGATIVE); UROBILINOGEN,URINE 0.2 mg/dL (0.2-1.0)
[2024-06-25 04:13] LABS: ADD UA MICROSCOPIC YES
[2024-06-25] MEDS: ondanSETRON ODT 4MG TAB SL ONE (04:17)
[2024-06-25] MEDS: PoTASSium chl 10% ELIXIR 20MEQ 20 MEQ/15 ML UDCUP PO ONE (04:17)
[2024-06-25 04:18] LABS: NON-SQUAMOUS EPITHELIAL CELL 3 /HPF (0-2); SQUAMOUS EPITHELIAL CELL,UR FEW /HPF (0-2)
[2024-06-25 05:21] VITALS: BP 119/72; PULSE 72; RESP 16; TEMP 98.2; O2SAT 98
== END 2024-06-25 05:23 | disposition home or self-care (01) ==
LOC: EDH 01:06
DX: N13.9 Obstructive and reflux uropathy, unspecified (principal); Z79.899 Other long term (current) drug therapy; Z98.2 Presence of cerebrospinal fluid drainage device
CPT/HCPCS: 99284; 96374; 80048; 85025; 87086 ×2; 87186; 81001; 36415; J2270

== ENCOUNTER 2024-07-24 22:53 | Inpatient (IN) | payer MEDICAID ==
[~2024-07-24] VITALS: Ht 147.3 cm; Wt 62.6 kg
[~2024-07-24 22:53] MED LIST changes: -AMOX1TAB16 PO; +FURO20TA4 PO; +HYDR-4030 PO; +LINA290C PO; +LISI10TA24 PO; -PANT40TA54 PO; +PLEC3TAB2 PO; -PROM50TA3 PO
[2024-07-25 00:15] LABS: APPEARANCE,URINE CLEAR (CLEAR); BILIRUBIN,URINE NEGATIVE (NEGATIVE); COLOR,URINE COLORLESS (YELLOW); GLUCOSE, URINE (UA) NEGATIVE (NEGATIVE); KETONES,URINE NEGATIVE (NEGATIVE); LEUKOCYTE ESTERASE ,URINE NEGATIVE Leu/uL (NEGATIVE); NITRATE,URINE NEGATIVE (NEGATIVE); OCCULT BLOOD,URINE NEGATIVE (NEGATIVE); PH,URINE 6.5 (5.0-8.0); PROTEIN,URINE NEGATIVE (NEGATIVE); UROBILINOGEN,URINE 0.2 mg/dL (0.2-1.0)
[2024-07-25 00:22] LABS: ADD UA MICROSCOPIC NO
[2024-07-25] MEDS: ondanSETRON ODT 4MG TAB SL ONE (01:21)
--- NOTE | 2024-07-25 02:18 | ERN ---
General Chief Complaint: Abdominal Pain Stated Complaint: DIZZINESS Time Seen by MD: 22:55 History of Present Illness Initial Comments This is a 43-year-old female born with spina bifida who has chronic pancreatitis, gastroparesis, seizure disorder, depression , anxiety disorder and neurogenic bladder. She comes in with intractable nausea and vomiting for the last two days and abdominal pain. Recently she was admitted to [facility] with an ESBL Klebsiella UTI that was only sensitive to Zosyn, Bactrim and ceftazidime/avibactam. In addition an intra-abdominal fluid collection containing Enterococcus faecalis was drained by IR. The patient was discharged on oral Bactrim. The patient is not clear on why she has had unremitting emesis since leaving the hospital two days ago. She does wonder if it is the Bactrim. Allergies: Coded Allergies: No Known Drug Allergies (Verified Allergy, Unknown, 07/12/20) Home Meds Active Scripts Potassium Chloride (K-Dur/Klor-Con) 20 Meq Ertab, 20 MEQ PO BID for 5 Days, #10 TAB.EC Prov:WADE FUCHS OPERATOR [employer] 04/06/24 Reported Medications Plecanatide (Trulance) 3 Mg Tablet, 1 TAB PO DAILY for 30 Days, #30 TAB 0 Refills 07/17/24 Lisinopril (Lisinopril) 10 Mg Tablet, 1 TAB PO DAILY for 30 Days, #30 TAB 0 Refills 07/17/24 Linaclotide (Linzess) 290 Mcg Capsule, 1 CAP PO DAILY for 30 Days, #30 CAP 0 Refills 07/17/24 Hydroxyzine Pamoate (Hydroxyzine Pamoate) 25 Mg Capsule, 1 CAP PO HSPRN for 30 Days, #90 CAP 0 Refills 07/17/24 Furosemide (Furosemide) 20 Mg Tablet, 1 TAB PO DAILY for 30 Days, #30 TAB 0 Refills 07/17/24 Hydromorphone HCl (Dilaudid) 4 Mg Tab, 4 MG PO AM, TAB 03/04/24 Esomeprazole Magnesium (Esomeprazole Magnesium) 20 Mg Capsule.dr, 1 CAP PO DAILY for acid reflux for 30 Days, #30 CAP 0 Refills 03/04/24 Minocycline HCl (Minocycline HCl) 100 Mg Capsule, 1 CAP PO BID for 30 Days, #60 CAP 0 Refills 03/04/24 Ziprasidone HCl (Ziprasidone HCl) 20 Mg Capsule, 1 CAP PO BID for 30 Days, #60 CAP 0 Refills 03/04/24 Quetiapine Fumarate (Quetiapine Fumarate) 25 Mg Tablet, 1 TAB PO HS for 30 Days, #30 TAB 0 Refills 03/04/24 Dicyclomine HCl (Dicyclomine HCl) 10 Mg Capsule, 10 MG PO Q4HPRN, CAP 03/04/24 Sertraline HCl (Sertraline HCl) 100 Mg Tablet, 1 TAB PO DAILY for 30 Days, #30 TAB 0 Refills 03/04/24 [Keppra] No Conflict Check, 150 MG PO BID 03/04/24 Alprazolam (Alprazolam) 2 Mg Tablet, 2 MG PO TID, TAB 06/02/19 Past Medical History Past Medical History: Pancreatitis, Seizure, UTI, Other Medical History Other: SPINAL BIFIDA, CRE, MRSA Past Surgical History: Other Surgical History Other: ABD SX, 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, J-TUBE, COLOSTOMY, SPINAL SX Family History Family History: Negative Social History Social History: Negative, Lives with family, Other Female( History) History: Not Applicable : 0 Constitutional: (+) chills EENTM: (-) eye pain, (-) blurred vision, (-) tearing, (-) double vision, (-) ear pain, (-) ear discharge, (-) nose pain, (-) nose congestion, (-) throat pain, (-) Throat swelling, (-) mouth pain, (-) tooth pain, (-) mouth swelling, (-) other documentation Respiratory: (-) cough, (-) orthopnea, (-) short of breath, (-) stridor, (-) wheezing, (-) other documentation Cardiovascular: (-) chest pain, (-) edema, (-) palpitations, (-) syncope, (-) dyspnea on exertion, (-) other documentation Gastrointestinal/Abdominal: (+) nausea, (+) vomiting, (+) abdominal pain Musculoskeletal: (-) Neck pain, (-) back pain, (-) Flank Pain, (-) joint pain, (-) joint swelling, (-) muscle pain, (-) muscle stiffness, (-) gout, (-) other documentation Skin: (-) laceration, (-) contusion, (-) abrasion, (-) abscess, (-) rash, (-) change in color, (-) change in hair, (-) change in nails, (-) diaphoresis, (-) dryness, (-) other documentation Neuro: (-) altered mental status, (-) headache, (-) syncope, (-) paralysis, (-) numbness, (-) seizure, (-) pre-existing deficit, (-) tremors, (-) weakness, (-) dizziness, (-) slurred speech, (-) vertigo, (-) other documentation Physical Exam General Appearance: (+) moderate distress Orientation: (+) alert, (+) oriented x 3 Head/Face Trauma: No Eye: bilateral eye normal inspection, bilateral eye PERRL, bilateral eye EOMI Ear, Nose, Throat: (+) hearing grossly normal, (+) normal ENT inspection, (+) moist mucous membraine Neck: (+) normal inspection, (+) supple, (+) full range of motion Respiratory: (+) chest non-tender, (+) lungs clear Heart: (+) regular, (+) no gallop Vascular: (+) no edema, (+) normal peripheral pulse Gastrointestinal: (+) soft, (+) bowel sound present, (+) tender Extremities: (+) normal range of motion, (+) non-tender Neurologic/Psychiatric: (+) normal speech, (+) no motor defecits, (+) habilitation worker II- XII nml as tested Results Laboratory and Microbiology Lab and Micro Result Laboratory Tests Test 07/24/24 00:00 07/25/24 03:12 Urine Color COLORLESS (YELLOW) Urine Appearance CLEAR (CLEAR) Urine pH 6.5 (5.0-8.0) Urine Specific [place] 1.005 (1.001-1.031) Urine Protein NEGATIVE mg/dL (NEGATIVE) Urine Glucose (UA) NEGATIVE mg/dL (NEGATIVE) Urine Ketones NEGATIVE mg/dL (NEGATIVE) Urine Occult Blood NEGATIVE (NEGATIVE) Urine Nitrate NEGATIVE (NEGATIVE) Urine Bilirubin NEGATIVE mg/dL (NEGATIVE) Urine Urobilinogen 0.2 mg/dL (0.2-1.0) Urine Leukocyte Esterase NEGATIVE Eliceo/uL Urine HCG, Qualitative NEGATIVE (NEGATIVE) White Blood Count 6.3 K/uL (4.8-10.8) Red Blood Count 4.54 MIL/uL (4.00-5.50) Hemoglobin 12.7 g/dL (12.0-16.0) Hematocrit 40.3 % (36-48) Mean Corpuscular Volume 88.8 fL (79-99) Mean Corpuscular Hemoglobin 28.0 pg (27.0-33.0) Mean Corpuscular Hemoglobin Concent 31.5 g/dL (32.0-36.0) L Red Cell Distribution Width 13.6 % (11.0-15.5) Platelet Count 325 K/uL (130-400) Mean Platelet Volume 10.2 fL (7.5-10.5) Immature Granulocyte % (Auto) 0.2 % (0-1) Neutrophils (%) (Auto) 62.2 % (40.0-77.0) Lymphocytes (%) (Auto) 28.7 % (21.0-51.0) Monocytes (%) (Auto) 6.8 % (3.0-13.0) Eosinophils (%) (Auto) 1.6 % (0.0-8.0) Basophils (%) (Auto) 0.5 % (0.0-5.0) Neutrophils # (Auto) 3.9 K/uL (1.8-7.7) Lymphocytes # (Auto) 1.8 K/uL (1.0-4.8) Monocytes # (Auto) 0.4 K/uL (0.1-1.0) Eosinophils # (Auto) 0.10 K/uL (0.00-0.70) Basophils # (Auto) 0.03 K/uL (0.00-0.20) Absolute Immature Granulocyte (auto 0.01 K/uL (0-1) Nucleated Red Blood Cells 0.0 % (0.0-0.19) MDM 43-year-old female with multiple medical problems being admitted for nausea and vomiting. At this point I do not know if it is from the antibiotic Bactrim, incompletely treated CRE UTI, intra-abdominal fluid collection of untreated entero coccus or something else. We will need to establish IV access draw full set of labs including a UA and also we need to do a CT scan of the abdomen and pelvis. In the meantime I will give her an antiemetic and some pain medicine. Patient's CBC is normal. At this point the chemistry panel is pending. CT scan is also pending. The hospitalist his agreed to take the patient onto his service. I will follow up on the chemistry panel and CT scan and write orders for any emergent conditions. ED Course Orders Procedure Category Date Status Time Urinalysis Profile LAB 07/24/24 Complete 23:55 ,Urine Test LAB 07/24/24 Complete 23:55 Morphine 5mg Vial PHA 07/25/24 Complete (Morphine 5mg Vial) 01:00 Morphine 5mg Vial PHA 07/25/24 Complete (Morphine 5mg Vial) 01:30 Ondansetron Odt 4mg PHA 07/25/24 Complete Tab (Zofran 4mg Odt) 01:30 Cbc With Differential LAB 07/25/24 Complete 02:38 Comprehensive LAB 07/25/24 In Process Metabolic Panel 02:38 Ketorolac PHA 07/25/24 Complete Tromethamine 30mg/Ml 03:00 Lactated Ringers PHA 07/25/24 Complete 1000ml (Lactated 02:38 Ct Abdomen/Pelvis CT 07/25/24 Logged W/Contrast 02:38 Current Medications Medications (Trade) Dose Ordered Sig/Sandi Route PRN Reason Start Time Stop Time Status Last Admin Dose Admin Ketorolac Tromethamine (toRADol) 30 mg ONCE ONCE IVP 07/25/24 03:00 07/25/24 03:01 DC 07/25/24 03:12 Lactated Ringer's (Lactated Ringers 1000ml) 1,000 ml BOLUS STAT IV 07/25/24 02:38 07/25/24 02:42 DC 07/25/24 03:12 Morphine Sulfate (morPHINE 5MG VIAL) 5 mg ONCE ONCE IM 07/25/24 01:30 07/25/24 01:31 DC 07/25/24 01:12 Morphine Sulfate (morPHINE 5MG VIAL) 5 mg ONCE ONCE IVP 07/25/24 01:00 07/25/24 01:07 DC Ondansetron HCl (zoFRAN 4MG ODT) 4 mg ONCE ONCE SL 07/25/24 01:30 07/25/24 01:31 DC 07/25/24 01:21 Vital Signs Date Time Temp Pulse Resp B/P (MAP) Pulse Ox O2 Delivery O2 Flow Rate FiO2 07/25/24 01:59 98.4 72 18 130/82 96 Room Air* 0 21 07/25/24 00:06 98.6 79 18 162/87 99 Room Air* 0 21 07/24/24 22:55 98.8 79 16 128/90 99 Room Air DX & DISP Disposition: Inpatient Departure Impression: Primary Impression: Emesis, persistent Condition: Stable Referrals: FRANKI VILLAFANA MD (PCP) ISABELL MAYEN MD July 25, 2024 02:18
[2024-07-25] MEDS: ketOROlac 30MG VIAL (30MG/ML) IVP ONE (03:12)
[2024-07-25] MEDS: LACTATED RINGERS 1000ML IV STA (03:12)
[2024-07-25 03:22] LABS: BASOPHILS # (AUTO) 0.03 K/uL (0.00-0.20); BASOPHILS % (AUTO) 0.5 % (0.0-5.0); EOSINOPHILS % (AUTO) 1.6 % (0.0-8.0); HEMATOCRIT 40.3 % (36-48); IMMATURE GRANULOCYTE ABSOLUTE 0.01 K/uL (0-1); LYMPHOCYTES # (AUTO) 1.8 K/uL (1.0-4.8); LYMPHOCYTES % (AUTO) 28.7 % (21.0-51.0); MEAN CORPUSCULAR HGB CONC 31.5 g/dL (32.0-36.0); MEAN CORPUSCULAR VOLUME 88.8 fL (79-99); MONOCYTES # (AUTO) 0.4 K/uL (0.1-1.0); MONOCYTES % (AUTO) 6.8 % (3.0-13.0); NEUTROPHILS # (AUTO) 3.9 K/uL (1.8-7.7); NEUTROPHILS % (AUTO) 62.2 % (40.0-77.0); PLATELET COUNT (AUTO) 325 K/uL (130-400); RED BLOOD CELL COUNT(AUTO) 4.54 MIL/uL (4.00-5.50); RED CELL DISTRIBUTION WIDTH 13.6 % (11.0-15.5); WHITE BLOOD COUNT (AUTO) 6.3 K/uL (4.8-10.8)
[2024-07-25 04:21] LABS: ALBUMIN 4.3 g/dL (3.5-5.0); BILIRUBIN,TOTAL 0.4 mg/dL (0.2-1.0); POTASSIUM 3.1 mmol/L (3.5-5.1); TOTAL PROTEIN, SERUM 7.8 g/dL (6.0-8.3)
[2024-07-25] MEDS ORDERED: IOHEXOL 350 MG/ML 100ML INFUS..BTL IV ONE (04:25)
[2024-07-25] MEDS: PoTASSium BIcarbonate/CIT AC 25 MEQ TABLET.EFF PO ONE (05:16)
[2024-07-25] MEDS ORDERED: DiphenhydrAMINE HCL 50 MG/ML VIAL IV PRN (07:00)
[2024-07-25] MEDS ORDERED: MAG/ALUM/SIMETH 30 ML UDCUP PO PRN (07:00)
[2024-07-25] MEDS ORDERED: PoTASSium chloRIDE 10MEQ/100ML 100 ML IV PRN (07:00)
[2024-07-25] MEDS ORDERED: cefTRIAXone 1G VIAL 2 GM in 0.9%NACL 100ML 100 ML IV SCH (07:00)
[2024-07-25] MEDS ORDERED: GLUCAGON 1MG KIT 1 MG ML IM PRN (07:00)
[2024-07-25] MEDS ORDERED: PoTASSium chloRIDE 20MEQ ER 20 MEQ ERTAB PO PRN (07:00)
[2024-07-25] MEDS ORDERED: DEXTROSE 50%-WATER 50 ML DISP.SYRIN IV PRN (07:00)
[2024-07-25] MEDS ORDERED: acetaMINOPHEN 325 MG TAB PO PRN ×3 (07:00)
[2024-07-25] MEDS ORDERED: FAMOTIDINE 20MG VIAL IV PRN (07:00)
[2024-07-25] MEDS ORDERED: PoTASSium chl 10% ELIXIR 20MEQ 20 MEQ/15 ML UDCUP PO PRN ×2 (07:00)
[2024-07-25] MEDS ORDERED: MAGNESIUM 2GM PREMIX 50ML 50 ML IV PRN (07:00)
[2024-07-25] MEDS ORDERED: LACTULOSE 20 GM/30 ML UDCUP PO PRN (07:00)
[2024-07-25] MEDS ORDERED: VANCOMYCIN PROTOCOL PER PHARMACY IV PRN (07:00)
[2024-07-25] MEDS ORDERED: PoTASSium chloRIDE 20MEQ/100ML 100 ML IV PRN (07:00)
[2024-07-25] MEDS ORDERED: oxyCODONE/aceTAMIN 5/325MG TAB PO PRN (07:00)
[2024-07-25] MEDS ORDERED: hydrALAZine 20MG/ML VIAL IV PRN (07:00)
--- NOTE | 2024-07-25 07:21 | HP ---
[facility] HISTORY AND PHYSICAL Date of Service: July 25, 2024 Time of Service: 07:12 PCP: Dr. 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 Recently patient was admitted to [facility] for ESBL Klebsiella UTI that was sensitive to Zosyn, Bactrim and ceftazidime/avibactam. In addition and intra-abdominal fluid collection was found to contain Enterococcus faecalis was drained by IR and later on patient was discharged home and cleared by ID, on oral antibiotics Bactrim. Most recent vital signs temperature 98.6 pulse 76 respiration 18 blood pressure 123/84. Patient is on room air satting 100%. WBC 6.3 hemoglobin 12.7 hematocrit 40.3 platelets 325. UA negative. Sodium 138 potassium 3.1 CO2 23 BUN 23 creatinine six GFR one glucose 105 total calcium 8.8 bilirubin 0.4 AST 86 ALT [address] abdomen/pelvis is pending results at this moment. Chest x-ray ordered. Patient will be admitted under hospitalist care for further evaluation/recommendation. ID we will be consulted for antibiotic management. IR we will be consulted for the fluid collection removal. We will also consult surgeon Dr. Freitas who was previously consulted for also fluid collection if IR wall not be able to remove it.] REVIEW OF SYSTEMS CONSTITUTIONAL: Denies fevers, chills, or night sweats. No unintentional weight loss reported. NEUROLOGICAL: Denies headache, amaurosis fugax, motor weakness, sensory deficit, vertigo/spinning sensation, gait abnormalities, or tremors. ENT: No hearing loss, otalgia, otorrhea, rhinitis, rhinorrhea, hoarseness, or sore throat. CARDIOVASCULAR: Denies any exertional angina, dyspnea on exertion, orthopnea, paroxysmal nocturnal dyspnea, palpitations, life-threatening arrhythmias, cla udication. PULMONARY: Denies any shortness of breath, cough, phlegm/sputum, hemoptysis, pleuritic chest pain. SLEEP: Denies morning headaches, daytime somnolence or napping. Denies difficulty falling asleep, staying asleep, waking from sleep. Denies knowledge of snoring. GASTROINTESTINAL: Denies any type of dysphagia to either liquids or solids. Denies pyrosis, early satiety, diarrhea, constipation, or changes in stool consistency or caliber. Denies coffee-ground emesis, hematemesis, hematochezia, or melanotic stools. Intractable nausea and vomiting. Severe abdominal pain GENITOURINARY: Denies frequency, urgency, nocturia, hematuria or incontinence (Storage/Irritative symptoms.) Low urinary stream, straining to void, urinary intermittency or hesitancy, splitting of the voiding stream, terminal dribbling. ENDOCRINOLOGIC: Denies polyuria, polydipsia, polyphagia or heat/cold intolerances. HEMATOLOGIC: Denies thrombophilia/previous clots, or coagulopathy/bleeding disorders. ONCOLOGIC: Denies personal history of malignancy. DERMATOLOGIC: Denies rashes or pruritus. PSYCHIATRIC: Denies any suicidal or homicidal ideation. Denies hallucinations. PAST MEDICAL HISTORY: [Anxiety, neurogenic bladder, spinal bifida, chronic pancreatitis, gastroparesis, seizures, depression, BP shunt, recent UTI positive for Klebsiella pneumoniae, recent fluid collection in the abdomen positive for Enterococcus faecalis ] PAST SURGICAL HISTORY: [ J-tube placement, small bowel resection, av shunt placement, colostomy placement and closure, cholecystectomy, appendectomy ] PAST SOCIAL HISTORY: [ Patient denies any alcohol use, patient denies well. Patient denies drug illicit ] FAMILY HISTORY: [ Patient lives at home with a roommate ] Coded Allergies: No Known Drug Allergies (Verified Allergy, Unknown, 07/12/20) PHYSICAL EXAM GENERAL APPEARANCE: The patient is awake, alert, and oriented, in no acute cardiopulmonary distress. NEUROLOGICAL: Cranial nerves II-XII grossly intact. Motor is 5/5 in bilateral upper and lower extremities proximal to distal. No sensory deficits. HEENT: Face is symmetric. Pupils are equal and reactive. Extraocular movements are intact. NECK: Supple. No JVD. No thyromegaly. No submental, submandibular, pre- /postauricular, occipital or supraclavicular lymphadenopathy. CHEST: Normal chest expansion. No Telemetry. LUNGS: Absence of any rales, rhonchi or any wheezing. CARDIOVASCULAR: Regular. S1 and S2 normal. No appreciable rubs, murmurs or gallops. ABDOMEN: Soft, tender, and nondistended. There is no rebound, voluntary guard ing, or rigidity. : Deferred. No Carnes. EXTREMITIES: Non-edematous and not cyanotic. No clubbing. Good capillary refill. SKIN: No skin breakdown. Vital Sign (Last 24 Hours) 07/25/24 06:12 Temp 98.6 Pulse 76 Resp 18 B/P (MAP) 123/84 Pulse Ox 100 O2 Delivery Room Air* O2 Flow Rate 0 FiO2 21 LABS: Laboratory: Test 07/25/24 03:12 07/24/24 00:00 Range/Units White Blood Count 6.3 4.8-10.8 K/uL Red Blood Count 4.54 4.00-5.50 MIL/uL Hemoglobin 12.7 12.0-16.0 g/dL Hematocrit 40.3 36-48 % Mean Corpuscular Volume 88.8 79-99 fL Mean Corpuscular Hemoglobin 28.0 27.0-33.0 pg Mean Corpuscular Hemoglobin Concent 31.5 L 32.0-36.0 g/dL Red Cell Distribution Width 13.6 11.0-15.5 % Platelet Count 325 130-400 K/uL Mean Platelet Volume 10.2 7.5-10.5 fL Immature Granulocyte % (Auto) 0.2 0-1 % Neutrophils (%) (Auto) 62.2 40.0-77.0 % Lymphocytes (%) (Auto) 28.7 21.0-51.0 % Monocytes (%) (Auto) 6.8 3.0-13.0 % Eosinophils (%) (Auto) 1.6 0.0-8.0 % Basophils (%) (Auto) 0.5 0.0-5.0 % Neutrophils # (Auto) 3.9 1.8-7.7 K/uL Lymphocytes # (Auto) 1.8 1.0-4.8 K/uL Monocytes # (Auto) 0.4 0.1-1.0 K/uL Eosinophils # (Auto) 0.10 0.00-0.70 K/uL Basophils # (Auto) 0.03 0.00-0.20 K/uL Absolute Immature Granulocyte (auto 0.01 0-1 K/uL Nucleated Red Blood Cells 0.0 0.0-0.19 % Sodium Level 138 136-145 mmol/L Potassium Level 3.1 L 3.5-5.1 mmol/L Chloride Level 103 101-111 mmol/L Carbon Dioxide Level 23 21-32 mmol/L Blood Urea Nitrogen 6 L 7-18 mg/dL Creatinine 1.0 0.5-1.0 mg/dL Glomerular Filtration Rate Calc 71 >90 mL/min Random Glucose 105 70-105 mg/dL Total Calcium 8.8 8.5-10.1 mg/dL Total Bilirubin 0.4 0.2-1.0 mg/dL Aspartate Amino Transf (AST/SGOT) 86 H 10-37 U/L Alanine Aminotransferase (ALT/SGPT) 49 12-78 U/L Alkaline Phosphatase 202 H 50-136 U/L Total Protein 7.8 6.0-8.3 g/dL Albumin 4.3 3.5-5.0 g/dL Urine Color COLORLESS YELLOW Urine Appearance CLEAR CLEAR Urine pH 6.5 5.0-8.0 Urine Specific [place] 1.005 1.001-1.031 Urine Protein NEGATIVE NEGATIVE mg/dL Urine Glucose (UA) NEGATIVE NEGATIVE mg/dL Urine Ketones NEGATIVE NEGATIVE mg/dL Urine Occult Blood NEGATIVE NEGATIVE Urine Nitrate NEGATIVE NEGATIVE Urine Bilirubin NEGATIVE NEGATIVE mg/dL Urine Urobilinogen 0.2 0.2-1.0 mg/dL Urine Leukocyte Esterase NEGATIVE NEGATIVE Eliceo/uL Urine HCG, Qualitative NEGATIVE NEGATIVE Current Medications Medications (Trade) Dose Ordered Sig/Sandi Route PRN Reason Start Time Stop Time Status Last Admin Dose Admin Dextrose (D50w) 50 ml AD PRN IV HYPOGLYCEMIA PROTOCOL 07/25/24 07:00 08/24/24 06:59 Glucagon (Glucagon 1mg Kit) 1 mg AD PRN IM HYPOGLYCEMIA PROTOCOL 07/25/24 07:00 08/24/24 06:59 Insulin Human Regular (humuLIN R 100 UNIT/ML 3ML) INSULIN SLIDING SCAL... ACHS SQ 07/25/24 07:30 08/24/24 07:29 Lactated Ringer's (Lactated Ringers 1000ml) 1,000 ml BOLUS STAT IV 07/25/24 02:38 07/25/24 02:42 DC 07/25/24 03:12 1,000 ML Magnesium Sulfate 50 ml @ 0 mls/hr PROTOCOL PRN IV other 07/25/24 07:00 08/24/24 06:59 Potassium Chloride 100 ml @ 100 mls/hr AD PRN IV POTASSIUM PROTOCOL 07/25/24 07:00 07/25/24 06:59 DC Potassium Chloride 100 ml @ 100 mls/hr AD PRN IV POTASSIUM PROTOCOL 07/25/24 07:00 08/24/24 06:59 Potassium Chloride (K-Dur/Klor-Con 20meq) 10 meq AD PRN PO POTASSIUM PROTOCOL 07/25/24 07:00 07/25/24 06:59 DC Potassium Chloride (K-Dur/Klor-Con 20meq) 20 meq AD PRN PO POTASSIUM PROTOCOL 07/25/24 07:00 08/24/24 06:59 Potassium Chloride (KCl 10% Elixir 20meq/15ml) 10 meq AD PRN PO POTASSIUM PROTOCOL 07/25/24 07:00 07/25/24 06:59 DC Potassium Chloride (KCl 10% Elixir 20meq/15ml) 20 meq AD PRN PO POTASSIUM PROTOCOL 07/25/24 07:00 08/24/24 06:59 DIAGNOSTICS / RADIOLOGY: [ ] ASSESSMENT: [Severe abdominal pain possibly due to fluid collection POA Intractable nausea and vomiting possibly due to above POA Body fluid culture growing Enterococcus faecalis 07/21/2024 POA Recent acute complicated cystitis infection 07/16/2024 on Bactrim discharge POA Urine culture positive Klebsiella pneumoniae 07/16/2024 POA Abdominal fluid collection per CT abdomen/pelvis POA Gastroparesis POA Seizures POA Uncontrolled hypertension POA Depression POA Electrolyte imbalance hypokalemia 3.1 POA Neurogenic bladder dysfunction POA BP shunt POA Spinal bifida POA Anxiety POA Chronic pancreatitis POA History of G-tube placement History of small bowel resection History of AV shunt placement History of colostomy placement and closure History of cholecystectomy History of appendectomy ] PLAN: [ Admit to: Medical-surgical floor with telemetry Consults: ID, surgeon, IR Antibiotics: Ceftriaxone, vanco Tests: Chest x-ray, CT abdomen/pelvis NEURO: Minimize central acting medications as possible. Fall Precautions. Well lighted room through the day and minimize interruptions through the night to prevent acute delirium. PULMONARY: Chest x-ray pending Supplemental 02 as needed BiPAP as necessary, for respiratory distress Titrate Fio2 to keep Spo2 > or = 90% DuoNebs and CPT as needed IS hourly while awake for pulmonary hygiene Out of bed to chair as tolerated VAP Bundle Maintain aspiration precautions at all times CARDIOVASCULAR: Follow hemodynamics. Vital signs per facility protocol GI & NUTRITION: CT abdomen/pelvis pending Continue nutritional support Aspirations precautions Prokinetic agents and laxatives as needed KIDNEYS & ELECTROLYTES: Normal saline at 75 mL/hour Strict monitoring of intake and output Daily weights Avoid nephrotoxic agents Monitor electrolytes and replace as needed Goal urine output of 30mL/hr or 0.5mL/kg/hr Medications to be dosed according to renal function. Avoid contrast if possible ENDOCRINE: Maintain blood glucose between 100-180 at all times. Insulin sliding scale for blood glucose management Hypoglycemia and hyperglycemia protocol in place INFECTIOUS DISEASE: Trend temperature, WBC and procalcitonin level Follow cultures, deescalate antibiotics as soon as possible. Panculture if new onset fever HEMATOLOGY & COAGULATION: Monitor H&H. Keep Hgb > 7 Transfuse 1 unit of PRBC for Hgb < 7 Transfuse 1 pack of platelets of platelets < 20, 000 Watch for any signs and symptoms of bleeding SKIN: Pressure ulcer prevention per facility protocol Specialty mattress as needed Treatment plan discussed with patient and family at the bedside Medications to be reconciled once obtained by patient and/or family and available to be reconciled in computer p.r.n. medication for pain nausea and vomiting Questions were answered We will continue to monitor the patient closely Employee Benefits Manager for disposition Rehab: PT/OT GI: PPI DVT: SCD's Code Status: Full Resuscitation Disposition: TBD Prognosis: Guarded] ADVANCED CARE PLANNING 1. Which of the following were discussed? Hospice Care - Yes / No Therapeutic options - Yes / No Advance Directives - Yes / No Other discussions - 2. Discussed with who? Patient 3. Voluntary nature of this service was explained to the patient? Yes / No 4. Amount of time spent - __ more than 35 minutes 5. Reviewed by Physician? (if this service was performed by NPP) Yes / No ATTESTATION BY PHYSICIAN I have seen and examined the patient. I reviewed the documentation, medical decision making, and treatment plan as noted by the mid-level provider above. I agree with the findings and plan of care. THEODORE Howard MD SENIOR IT SECURITY ANALYST July 25, 2024 07:21
[2024-07-25] MEDS: INSULIN humuLIN R 100 UNIT/ML 3ML SQ SCH (07:30)
[2024-07-25] MEDS: morPHINE 2 MG SYG IVP PRN (07:39)
[2024-07-25] MEDS: VANCOMYCIN 1.5 GM/250 ML BAG 250 ML IV ONE (08:38)
[2024-07-25] MEDS: CEFTRIAXONE 2GM VIAL IVPB SCH (08:39)
[2024-07-25] MEDS: FAMOTIDINE 20MG VIAL IV SCH (08:39)
[2024-07-25] MEDS: 0.9%NACL 1000ML 1,000 ML IV SCH (08:39)
[2024-07-25] MEDS: HEParin 5,000 UNIT VIAL SQ SCH (09:03)
--- NOTE | 2024-07-25 09:24 | HMCIMG ---
CT ABDOMEN/PELVIS W/CONTRAST HISTORY: Emesis COMPARISON: 07/17/2024 TECHNIQUE: Multiple sequential axial images of the abdomen and pelvis were obtained from the dome of the diaphragm through symphysis pubis. Patient was given 100 cc of Omnipaque through intravenous route. Oral contrast was not given. FINDINGS: No pleural effusion is seen bilaterally. There is no evidence of parenchymal disease or pulmonary nodule of the visualized lower lungs. Degenerative changes of the thoracolumbar spine are present. The heart is not enlarged. Liver measures 12 cm. Postcholecystectomy changes seen. There appears be a CORPORATE SECRETARY shunt. The liver, spleen, adrenal glands and pancreas are unremarkable. There is no evidence of hydronephrosis bilaterally. No evidence of renal stone is seen. Fecal material is seen in the colon. There are normal size retroperitoneal and mesenteric lymph nodes. Small amount of free fluid is seen in the pelvis. No ascites is seen. Atherosclerotic changes are present. Pelvic sidewalls are symmetric bilaterally. Bladder is poorly distended with bladder wall thickening. IMPRESSION: 1. Small amount of free fluid is seen in the pelvis. There is CORPORATE SECRETARY shunt. CT was performed with one or more following dose reduction techniques: automated exposure control, adjustment of the mA and kv according to patient's size, or use of a iterative reconstruction technique.
--- NOTE | 2024-07-25 09:28 | NUR ---
REPORT GIVEN TO JORDAN NURSE AT 0920, PT [id number] STABLE VITALS WNL, PT MEDICATED FOR PAIN PRIOR TO TRANSFER, PT PENDING TO HAVE ROOM MATE BRING HER HOME MEDICATIONS, INORMED NURSE TO CALL DR. HIGH FOR CONSULT ONCE RAD REPORT IS RESULTED.
[2024-07-25] MEDS ORDERED: hydrOXYzine 25 MG TABLET PO PRN (09:30)
[2024-07-25 09:35] VITALS: BP 146/70; PULSE 77; RESP 18; TEMP 98.1; O2SAT 99
--- NOTE | 2024-07-25 09:35 | NUR ---
PATIENT HAS A NEUROGENIC BLADDER AND PERFORMS HER OWN SELF CATHETER. I DID ASK THE PATIENT IF SHE NEEDED SUPPLIES TO WHICH SHE SAID NO. Addendum: 07/25/24 at 1304 by HARVEY SMITH RN RN Amended: Links added.
--- NOTE | 2024-07-25 11:09 | NUR ---
CSSRS PER THE CSSRS THE PATIENT IS CLASSIFIED A LOW RISK. I DID NOTIFY MICHAEL MADDEN OF THE CLASSIFICATION AND THAT IT STATES A SITTER IS REQUIRED. PER MICHAEL MADDEN NO SITTER IS NEEDED AT THIS TIME. PATIENT IS NOT CURRENTLY VOCALIZING ANY SI THOUGHTS. PATIENT WAS EDUCATED ON THE MATTER AND NOTIFIED THAT IF SHE DOES FEEL THERE IS A CHANGE THAT SHE NEED TO VERBALIZE THEM TO ME SO THAT I MAY MAKE THE APPROPRIATE CHANGES.
[2024-07-25 12:00] VITALS: BP 139/90; PULSE 70; RESP 18; TEMP 97.9
--- NOTE | 2024-07-25 12:19 | HMCIMG ---
CHEST 1VW HISTORY: Congestion COMPARISON: 01/06/2024 FINDINGS: A frontal projection of the chest was obtained. No acute pulmonary infiltrates is seen. The heart is normal in size. Postop changes are seen of the right humerus. Mild degenerative changes are seen. No evidence of aortic calcification is seen. IMPRESSION: 1. No acute pulmonary infiltrate is seen.
[2024-07-25] MEDS: ondanSETRON 4MG INJ IV PRN (15:25)
[2024-07-25 16:00] VITALS: BP 135/89; PULSE 72; RESP 18; TEMP 98.3
--- NOTE | 2024-07-25 16:45 | CONS ---
CONSULT NOTE: Consulting physician:Dr Liu Consulting service: General surgery Reason for consultation: Abdominal fluid collection History of present illness: This is a 43-year-old female with a medical history loaded below that has been consulted to surgery after presenting back to the hospital for concerns of abdominal pain. Patient recently seen were Interventional Radiology attempted to drain fluids within abdomen. Again fluid within abdomen noted but small in volume. Patient with a episodes of nausea and vomiting reported WBCs however unremarkable. No significant abdominal pain reported. Patient otherwise stable Medical history: Anxiety, neurogenic bladder, spinal bifida, chronic pancreatitis, gastroparesis, seizures, depression, BP shunt, recent UTI positive for Klebsiella pneumoniae, recent fluid collection in the abdomen positive for Enterococcus faecalis PAST SURGICAL HISTORY: J-tube placement, small bowel resection, av shunt placement, colostomy placement and closure, cholecystectomy, appendectomy PAST SOCIAL HISTORY: Patient denies any alcohol use, patient denies well. Patient denies drug illicit FAMILY HISTORY: Patient lives at home with a roommate Coded Allergies: No Known Drug Allergies (Verified Allergy, Unknown, 07/12/20) Review of systems: General: No Fever, No Chills, No Night Sweats, No Fatigue, No Malaise, No A ppetite, No Other HEENT: No Head Aches, No Visual Changes, No Eye Pain, No Ear Pain, No Dysphasia, No Sinus Congestion, No Post Nasal Drip, No Sore Throat, No Other Pulmonary: No Dyspnea, No Cough, No Pleuritic Chest Pain, No Other Cardiovascular: No: Chest Pain, Palpitations, Orthopnea, Paroxysmal No Dyspnea, Edema, Lt Headedness, Other Gastrointestinal: No: Nausea, Vomiting, Diarrhea, Constipation, Melena, Hematochezia, Other Genitourinary: No Dysuria, No Frequency, No Incontinence, No Hematuria, No R etention, No Other Musculoskeletal: No: other, neck pain, shoulder pain, arm pain, back pain, hand pain, leg pain, foot pain Skin: No Urticaria, No Rash, No Other Neurological: No: Weakness, Numbness, Incoordination, Change in speech, Confusion, Seizures, Other Physical exam: General: Awake alert and oriented Heart: Regular rate and rhythm} Lungs: Clear to auscultation no distress Abdomen: [Soft, nontender, nondistended Assessment: This is a 43-year-old female with history of TUG CAPTAIN shunt with concerns of fluid within abdomen Plan: This point in time no surgical intervention planned Patient should remain NPO until flatus returns Repeat KUB to assess for concerning obstruction Dr. Newman to be updated in patient's status and surgical team to follow patient closely TIFFANIE GRIFFIN Jr. July 25, 2024 16:45
--- NOTE | 2024-07-25 17:20 | HMCIMG ---
ABDOMEN SINGLE VIEW INDICATION: Pain COMPARISON: None FINDINGS: Supine view only alarm security or surveillance monitor leads overlie the field of view. Tip of ventriculoperitoneal shunt catheter within the left upper abdomen. No abnormal bowel dilation noted. No abnormal calcifications identified. No gross free air detected. Residual contrast material within the urinary bladder. IMPRESSION: No evidence for bowel obstruction.
[2024-07-25] MEDS ORDERED: VANCOMYCIN PROTOCOL PER PHARMACY IV SCH (17:30)
--- NOTE | 2024-07-25 17:46 | PN ---
INFECTIOUS DISEASE FOLLOWUP NOTE DATE OF SERVICE: 07/25/2024. SUBJECTIVE: The patient is seen and examined at bedside today. No fever or chills. The patient admitted with nausea and vomiting. CT of the abdomen has been done. No abscess found, only showed some mild free fluid in the pelvis. Urinalysis is negative. PHYSICAL EXAMINATION: VITAL SIGNS: Temperature 98.2. EYES: No icterus. Pupils equal and reactive. HENT: No oral thrush seen. Moist oral mucosa. NECK: Supple. No JVD or thyromegaly. LUNGS: Good air entry. No rales. No rhonchi. CARDIOVASCULAR: S1, S2, regular. No murmur heard. ABDOMEN: Full, soft, nontender. Bowel sound is present. CENTRAL NERVOUS SYSTEM: The patient is awake, alert, oriented x 3. Bedbound with paraplegia of lower extremities. SKIN: No rashes, no itchiness. LYMPHATIC: No peripheral lymphadenopathy. MUSCULOSKELETAL: No joint swelling, erythema, or tenderness. ASSESSMENT: A 43-year-old female admitted with abdominal pain. CURRENT PROBLEMS: Include: * Neurogenic bladder. * Paraplegia of lower extremities. * Abdominal pain. * Paraplegia. * Debility. PLAN: * No antibiotic needed at this time. * Continue antiemetic. * Continue pain management. * Continue DVT prophylaxis. * Monitor electrolytes and correct as needed. TID: [id number] RECEIPT: [id number] MTD
[2024-07-25] MEDS: BENZOCAINE/MENTH/CETYLPYRD CL 1 EACH LOZENGE MM PRN (17:58)
[2024-07-25] MEDS: VANCOMYCIN 1.25 GM/250 ML BAG 250 ML IV SCH (17:58)
--- NOTE | 2024-07-25 18:24 | NUR ---
HOME MEDS HOME MEDICATIONS HAVE NOT BEEN UPDATED. PATIENT STATES HER ROOMMATE IS TO BRING THEM IN LATER. SOME OF THE MEDICATIONS LISTED WERE RESUMED BY MICHAEL MADDEN BUT THOSE MEDICATIONS HAVE YET TO BE REVIEWED AND VERIFIED.
[2024-07-25 19:30] VITALS: O2SAT 99
[2024-07-25 20:00] VITALS: BP 148/89; PULSE 83; RESP 20; TEMP 98
[2024-07-25] MEDS: ZOLPidem TARTrate 5 MG TAB PO PRN (20:48)
[2024-07-25] MEDS: ZOSYN 3.375GM +NS 50ML IV SCH (20:55)
[2024-07-25] MEDS ORDERED: VANCOMYCIN 1G/250ML KIT 250 ML IV SCH (21:00)
[2024-07-25] MEDS ORDERED: LEVE100023 PO (21:14)
[2024-07-25] MEDS ORDERED: FE F1CAP33 PO (21:14)
[2024-07-25] MEDS ORDERED: ALPR-412 PO (21:14)
[2024-07-25] MEDS ORDERED: SENN8.6T20 PO (21:14)
--- NOTE | 2024-07-25 21:45 | NUR ---
HOME MEDICATION ENTERED
[2024-07-25 23:46] VITALS: BP 101/60; PULSE 80; RESP 16; TEMP 97.9
[2024-07-26] VITALS (7 sets, daily range): BP systolic 99–152; BP diastolic 57–82; PULSE 60–80; RESP 16–20; TEMP 98–98.5; O2SAT 99
[2024-07-26 02:05] LABS: HEMOGLOBIN A1C 5.2 % (4.0-6.0)
[2024-07-26] MEDS: ketOROlac 15MG/ML VIAL (15MG/ML) IV PRN (06:38)
[2024-07-26 06:55] LABS: BASOPHILS # (AUTO) 0.01 K/uL (0.00-0.20); BASOPHILS % (AUTO) 0.3 % (0.0-5.0); EOSINOPHILS # (AUTO) 0.28 K/uL (0.00-0.70); EOSINOPHILS % (AUTO) 7.2 % (0.0-8.0); HEMATOCRIT 33.8 % (36-48); LYMPHOCYTES % (AUTO) 25.8 % (21.0-51.0); MEAN CORPUSCULAR HEMOGLOBIN 28.8 pg (27.0-33.0); MEAN CORPUSCULAR HGB CONC 31.4 g/dL (32.0-36.0); MEAN CORPUSCULAR VOLUME 91.8 fL (79-99); MONOCYTES # (AUTO) 0.2 K/uL (0.1-1.0); MONOCYTES % (AUTO) 5.4 % (3.0-13.0); NEUTROPHILS # (AUTO) 2.4 K/uL (1.8-7.7); NEUTROPHILS % (AUTO) 61.3 % (40.0-77.0); PLATELET COUNT (AUTO) 186 K/uL (130-400); RED BLOOD CELL COUNT(AUTO) 3.68 MIL/uL (4.00-5.50); RED CELL DISTRIBUTION WIDTH 13.8 % (11.0-15.5); WHITE BLOOD COUNT (AUTO) 3.9 K/uL (4.8-10.8)
[2024-07-26 07:10] LABS: ALBUMIN 3.1 g/dL (3.5-5.0); BILIRUBIN,DIRECT 0.1 mg/dL (0.0-0.3); BILIRUBIN,TOTAL 0.5 mg/dL (0.2-1.0); CREATININE 0.9 mg/dL (0.5-1.0); MAGNESIUM 1.9 mg/dL (1.80-2.40); TOTAL PROTEIN, SERUM 5.8 g/dL (6.0-8.3)
[2024-07-26] MEDS: PLECANATIDE PO SCH (09:00)
[2024-07-26] MEDS: VANCOMYCIN 1G/250ML KIT 250 ML IV SCH (09:09)
[2024-07-26] MEDS: furoSEMIDE 20 MG TABLET PO SCH (09:10)
[2024-07-26] MEDS: LISINOPRIL 10 MG TABLET PO SCH (09:10)
--- NOTE | 2024-07-26 10:48 | PN ---
INFECTIOUS DISEASE PROGRESS NOTE Date of Service: July 26, 2024 SUBJECTIVE: This is a 43-year-old female patient who on previous hospital admission on 07/16/[address] scan of the abdomen and pelvis which showed multiple loculated fluid collection which may be related to loculated ascites versus se jewel. At that time patient underwent a needle aspiration by IR on 07/21/2024 which yielded clear urine and was sent for cultures. This aspirate culture came back positive for Enterococcus faecalis and the reason for this consult. Today patient was seen and examined at bedside in room 308. Patient is awake, alert and oriented. Patient still voicing pain on palpation to the mid abdominal area. The preliminary urine culture results on this admission at this time is growing Gram-negative rods. We will follow up on the final culture results. We will continue on vancomycin and Zosyn IV. Patient is afebrile, temperature is 98.2. No other issues reported by nursing. PHYSICAL EXAM EYES: Anicteric. Pupils equal and reactive. HENT: No oral thrush seen, moist Oral mucosa. NECK: Supple, no JVD or thyromegaly. LUNGS: Good air entry. No rales, no rhonchi. CARDIOVASCULAR: S1, S2 regular. No murmur heard. ABDOMEN: Soft, non tender, bowel sounds present, no organomegaly. Abdominal pa in POA. CENTRAL NERVOUS SYSTEM: Awake, alert, oriented x 3. SKIN: No rashes, no swelling. LYMPHATICS: No peripheral lymphadenopathy. MUSCULOSKELETAL: No joint swelling, erythema or tenderness. EXTREMITIES: No cyanosis or clubbing. BACK: No deformity, no pressure ulcer. GENITOURINARY: No dysuria or hematuria. Vital Sign (Last 12 Hours) 07/25/24 07/26/24 07/26/24 23:46 03:35 08:00 Temp 97.9 98.1 98.2 Pulse 80 66 75 Resp 16 16 18 B/P (MAP) 101/60 102/57 108/59 Pulse Ox 98 96 96 O2 Delivery Room Air Room Air Room Air Intake & Output (last 24hrs) 07/25/24 07/25/24 07/26/24 15:00 23:00 07:00 Intake Total 942.0 ml Balance 942.0 ml LABS: Laboratory: Test 07/26/24 06:42 07/26/24 05:02 07/25/24 03:12 Range/Units White Blood Count 3.9 L 4.8-10.8 K/uL Red Blood Count 3.68 L 4.00-5.50 MIL/uL Hemoglobin 10.6 L 12.0-16.0 g/dL Hematocrit 33.8 L 36-48 % Mean Corpuscular Volume 91.8 79-99 fL Mean Corpuscular Hemoglobin 28.8 27.0-33.0 pg Mean Corpuscular Hemoglobin Concent 31.4 L 32.0-36.0 g/dL Red Cell Distribution Width 13.8 11.0-15.5 % Platelet Count 186 # 130-400 K/uL Mean Platelet Volume 9.7 7.5-10.5 fL Immature Granulocyte % (Auto) 0.0 0-1 % Neutrophils (%) (Auto) 61.3 40.0-77.0 % Lymphocytes (%) (Auto) 25.8 21.0-51.0 % Monocytes (%) (Auto) 5.4 3.0-13.0 % Eosinophils (%) (Auto) 7.2 0.0-8.0 % Basophils (%) (Auto) 0.3 0.0-5.0 % Neutrophils # (Auto) 2.4 1.8-7.7 K/uL Lymphocytes # (Auto) 1.0 1.0-4.8 K/uL Monocytes # (Auto) 0.2 0.1-1.0 K/uL Eosinophils # (Auto) 0.28 0.00-0.70 K/uL Basophils # (Auto) 0.01 0.00-0.20 K/uL Absolute Immature Granulocyte (auto 0.00 0-1 K/uL Nucleated Red Blood Cells 0.0 0.0-0.19 % Sodium Level 140 136-145 mmol/L Potassium Level 4.0 3.5-5.1 mmol/L Chloride Level 110 101-111 mmol/L Carbon Dioxide Level 24 21-32 mmol/L Blood Urea Nitrogen 8 7-18 mg/dL Creatinine 0.9 0.5-1.0 mg/dL Glomerular Filtration Rate Calc 81 >90 mL/min Random Glucose 80 70-105 mg/dL Lactic Acid Level 0.9 0.8-2.5 mmol/L Total Calcium 8.5 8.5-10.1 mg/dL Magnesium Level 1.90 1.80-2.40 mg/dL Total Bilirubin 0.5 0.2-1.0 mg/dL Direct Bilirubin 0.1 0.0-0.3 mg/dL Aspartate Amino Transf (AST/SGOT) 30 10-37 U/L Alanine Aminotransferase (ALT/SGPT) 34 12-78 U/L Alkaline Phosphatase 154 H 50-136 U/L Ammonia 14 11-32 umol/L Total Creatine Kinase 27 # 21-232 U/L B-Type Natriuretic Peptide 24 0-100 pg/mL Total Protein 5.8 L 6.0-8.3 g/dL Albumin 3.1 L 3.5-5.0 g/dL Procalcitonin < 0.05 L 0.05-0.5 ng/mL Whole Blood Glucose 77 70-110 MG/DL Hemoglobin A1c 5.2 4.0-6.0 % Estimated Average Glucose (eAG) 103 70-126 mg/dL DIAGNOSTICS / RADIOLOGY: PATIENT: OVIDIO DORSEY ACCT: [id number] LOC: [facility] U: [id number] AGE/SX: 43/F ROOM: [facility] RE07/24/[address]: ESTEFANI MENSAH MD : 1980 BED: 1 DIS: STATUS: ADM IN TLOC: SPEC: [id number] LEIGHA: 07/25/246785 STATUS: RES REQ: [id number] RECD: 07/26/[address] [facility] [address]: THEODORE RODRIGUEZ APRN [place] [facility] [place] [facility] [address]: EDDIE SINCLAIR MD SPDESC: [facility],March ISABELL BARRY MD, FRANK MD ORDERED: AERO ID & SENS Procedure Result Sukhi Date-Time AEROBIC ID & SENSITIVITIES Preliminary 07/26/24-923 MRL COLONY DESCRIPTION: DAY 1: COLONY COUNT: >100,000 CFU/ML GRAM NEGATIVE RODS IDENTIFICATION AND SENSITIVITY TO FOLLOW Test(s) performed by: [facility] [address] [place] [address] ASSESSMENT: Urinary tract infection. Intra-abdominal fluid infection with Enterococcus faecalis. Abdominal pain. History of neurogenic bladder. History of chronic pancreatitis. PLAN: Continue vancomycin per pharmacy protocol. Continue Zosyn IV. Continue pain management. Continue GI prophylaxis. We will monitor electrolytes. This case was reviewed and discussed with my supervising physician and the above assessment and plan was formulated and agreed upon. ATTESTATION BY PHYSICIAN I have seen and examined the patient. I reviewed the documentation, medical decision making, and treatment plan as noted by the mid-level provider above. I agree with the findings and plan of care. EDDIE SINCLAIR MD, MIRTA [facility] July 26, 2024 10:47
[2024-07-26] MEDS ORDERED: SENNOSIDES 8.6 MG TABLET PO PRN (15:00)
--- NOTE | 2024-07-26 15:58 | NUR ---
DCP: INITIAL ASSESSMENT Patient lives with roommate. She has no home health but does have PHC with [facility] 35 hours a week. DME: wheelchair, rollator, cane. Patient needs help to complete ADLs and does not drive. Family and friends help with transportation. PCP is Dr. Jorge Negron. Pharmacy is [facility] located on [facility] in [place]. Patient voiced no safety concerns regarding returning home and states she has no difficulty with housing or buying food. DCP is home. Addendum: 07/26/24 at 1601 by SANGEETHA MASON SS Amended: Links added. Addendum: 07/26/24 at 1623 by SANGEETHA MASON SS READMISSION. Patient was last discharged on 07/21/24.
--- NOTE | 2024-07-26 16:26 | PN ---
[facility] PROGRESS NOTE Date of Service: July 26, 2024 Time of Service: 16:25 SUBJECTIVE: [ ] Patient was seen and examined. Case discussed with the RN She complains abdominal pain on broad-spectrum IV antibiotics for a UTI. REVIEW OF SYSTEMS CONSTITUTIONAL: Denies fevers, chills, or night sweats. No unintentional weight loss reported. NEUROLOGICAL: Denies headache, amaurosis fugax, motor weakness, sensory deficit, vertigo/spinning sensation, gait abnormalities, or tremors. ENT: No hearing loss, otalgia, otorrhea, rhinitis, rhinorrhea, hoarseness, or sore throat. CARDIOVASCULAR: Denies any exertional angina, dyspnea on exertion, orthopnea, paroxysmal nocturnal dyspnea, palpitations, life-threatening arrhythmias, claudication. PULMONARY: Denies any shortness of breath, cough, phlegm/sputum, hemoptysis, pleuritic chest pain. SLEEP: Denies morning headaches, daytime somnolence or napping. Denies difficulty falling asleep, staying asleep, waking from sleep. Denies knowledge of snoring. GASTROINTESTINAL: Denies any type of dysphagia to either liquids or solids. Denies pyrosis, early satiety, diarrhea, constipation, or changes in stool consistency or caliber. Denies coffee-ground emesis, hematemesis, hematochezia, or melanotic stools. Intractable nausea and vomiting. Severe abdominal pain GENITOURINARY: Denies frequency, urgency, nocturia, hematuria or incontinence (Storage/Irritative symptoms.) Low urinary stream, straining to void, urinary intermittency or hesitancy, splitting of the voiding stream, terminal dribbling. ENDOCRINOLOGIC: Denies polyuria, polydipsia, polyphagia or heat/cold intolerances. HEMATOLOGIC: Denies thrombophilia/previous clots, or coagulopathy/bleeding disorders. ONCOLOGIC: Denies personal history of malignancy. DERMATOLOGIC: Denies rashes or pruritus. PSYCHIATRIC: Denies any suicidal or homicidal ideation. Denies hallucinations. PHYSICAL EXAM GENERAL APPEARANCE: The patient is awake, alert, and oriented, in no acute cardiopulmonary distress. NEUROLOGICAL: Cranial nerves II-XII grossly intact. Motor is 5/5 in bilateral upper and lower extremities proximal to distal. No sensory deficits. HEENT: Face is symmetric. Pupils are equal and reactive. Extraocular movements are intact. NECK: Supple. No JVD. No thyromegaly. No submental, submandibular, pre- /postauricular, occipital or supraclavicular lymphadenopathy. CHEST: Normal chest expansion. No Telemetry. LUNGS: Absence of any rales, rhonchi or any wheezing. CARDIOVASCULAR: Regular. S1 and S2 normal. No appreciable rubs, murmurs or gallops. ABDOMEN: Soft, tender, and nondistended. There is no rebound, voluntary guarding, or rigidity. : Deferred. No Carnes. EXTREMITIES: Non-edematous and not cyanotic. No clubbing. Good capillary refill. SKIN: No skin breakdown. Vital Signs (last 8hr) Date Time Temp Pulse Resp B/P (MAP) Pulse Ox O2 Delivery O2 Flow Rate FiO2 07/26/24 12:00 98.1 60 18 99/63 100 LABS: Laboratory: Test 07/26/24 15:25 07/26/24 11:22 07/26/24 06:42 07/25/24 03:12 Range/Units Whole Blood Glucose 91 70-110 MG/DL Bedside Glucose Comment Notified Nurse White Blood Count 3.9 L 4.8-10.8 K/uL Red Blood Count 3.68 L 4.00-5.50 MIL/uL Hemoglobin 10.6 L 12.0-16.0 g/dL Hematocrit 33.8 L 36-48 % Mean Corpuscular Volume 91.8 79-99 fL Mean Corpuscular Hemoglobin 28.8 27.0-33.0 pg Mean Corpuscular Hemoglobin Concent 31.4 L 32.0-36.0 g/dL Red Cell Distribution Width 13.8 11.0-15.5 % Platelet Count 186 # 130-400 K/uL Mean Platelet Volume 9.7 7.5-10.5 fL Immature Granulocyte % (Auto) 0.0 0-1 % Neutrophils (%) (Auto) 61.3 40.0-77.0 % Lymphocytes (%) (Auto) 25.8 21.0-51.0 % Monocytes (%) (Auto) 5.4 3.0-13.0 % Eosinophils (%) (Auto) 7.2 0.0-8.0 % Basophils (%) (Auto) 0.3 0.0-5.0 % Neutrophils # (Auto) 2.4 1.8-7.7 K/uL Lymphocytes # (Auto) 1.0 1.0-4.8 K/uL Monocytes # (Auto) 0.2 0.1-1.0 K/uL Eosinophils # (Auto) 0.28 0.00-0.70 K/uL Basophils # (Auto) 0.01 0.00-0.20 K/uL Absolute Immature Granulocyte (auto 0.00 0-1 K/uL Nucleated Red Blood Cells 0.0 0.0-0.19 % Sodium Level 140 136-145 mmol/L Potassium Level 4.0 3.5-5.1 mmol/L Chloride Level 110 101-111 mmol/L Carbon Dioxide Level 24 21-32 mmol/L Blood Urea Nitrogen 8 7-18 mg/dL Creatinine 0.9 0.5-1.0 mg/dL Glomerular Filtration Rate Calc 81 >90 mL/min Random Glucose 80 70-105 mg/dL Lactic Acid Level 0.9 0.8-2.5 mmol/L Total Calcium 8.5 8.5-10.1 mg/dL Magnesium Level 1.90 1.80-2.40 mg/dL Total Bilirubin 0.5 0.2-1.0 mg/dL Direct Bilirubin 0.1 0.0-0.3 mg/dL Aspartate Amino Transf (AST/SGOT) 30 10-37 U/L Alanine Aminotransferase (ALT/SGPT) 34 12-78 U/L Alkaline Phosphatase 154 H 50-136 U/L Ammonia 14 11-32 umol/L Total Creatine Kinase 27 # 21-232 U/L B-Type Natriuretic Peptide 24 0-100 pg/mL Total Protein 5.8 L 6.0-8.3 g/dL Albumin 3.1 L 3.5-5.0 g/dL Procalcitonin < 0.05 L 0.05-0.5 ng/mL Hemoglobin A1c 5.2 4.0-6.0 % Estimated Average Glucose (eAG) 103 70-126 mg/dL Current Medications Medications (Trade) Dose Ordered Sig/Sandi Route PRN Reason Start Time Stop Time Status Last Admin Dose Admin Acetaminophen (TYLenol 325MG TAB) 650 mg Q4H PRN PO MILD PAIN (1-3) 07/25/24 07:00 07/25/24 07:10 DC Acetaminophen (TYLenol 325MG TAB) 650 mg Q6H PRN PO MILD PAIN (1-3) 07/25/24 07:00 08/24/24 06:59 Acetaminophen (TYLenol 325MG TAB) 650 mg Q6H PRN PO TEMPERATURE GREATER THAN 101.5 07/25/24 07:00 08/24/24 06:59 Al Hydroxide/Mg Hydroxide (MAALox PLUS 30ML) 30 ml Q6H PRN PO INDIGESTION 07/25/24 07:00 08/24/24 06:59 Alprazolam (XANax 1MG) 2 mg TID PRN PO ANXIETY 07/26/24 15:30 08/02/24 15:29 Benzocaine (Cepacol Sore Throat Lozenge) 1 each Q6H6 PRN MM SORE THROAT 07/25/24 18:00 08/24/24 17:59 07/25/24 17:58 1 EACH Ceftriaxone Sodium 2 gm/ Sodium Chloride 100 ml @ 200 mls/hr Q24H IV 07/25/24 07:00 07/25/24 07:13 DC Ceftriaxone Sodium (Rocephin 2gm Inj) 2 gm Q24H IVPB 07/25/24 07:30 07/25/24 11:35 DC 07/25/24 08:39 2 GM Dextrose (D50w) 50 ml AD PRN IV HYPOGLYCEMIA PROTOCOL 07/25/24 07:00 08/24/24 06:59 Diphenhydramine HCl (BENAdryl INJ) 25 mg Q6H PRN IV SEVERE ITCHING/RASH 07/25/24 07:00 08/24/24 06:59 Famotidine (Pepcid 20mg Vial) 20 mg BID IV 07/25/24 09:00 08/24/24 08:59 07/26/24 09:06 20 MG Famotidine (Pepcid 20mg Vial) 20 mg BID PRN IV NAUSEA/VOMITING 07/25/24 07:00 07/25/24 07:10 DC Furosemide (LASix 20MG TAB) 20 mg DAILY PO 07/26/24 09:00 08/25/24 08:59 07/26/24 09:10 20 MG Glucagon (Glucagon 1mg Kit) 1 mg AD PRN IM HYPOGLYCEMIA PROTOCOL 07/25/24 07:00 08/24/24 06:59 Heparin Sodium (Porcine) (HEParin 5,000 UNIT VIAL) 5,000 unit BID SQ 07/25/24 09:00 08/24/24 08:59 07/26/24 09:25 5,000 UNIT Home Med (Home Medication) (Plecanatide (Trulance) 1 TAB) DAILY PO 07/26/24 09:00 08/25/24 08:59 Hydralazine HCl (APRESOLine 20MG INJ) 10 mg Q6H PRN IV For:SBP above 160;DBP above 90 07/25/24 07:00 08/24/24 06:59 Hydroxyzine HCl (ATArax 25MG TAB) 25 mg HS PRN PO SLEEP 07/25/24 09:30 08/24/24 09:29 Insulin Human Regular (humuLIN R 100 UNIT/ML 3ML) INSULIN SLIDING SCAL... ACHS SQ 07/25/24 07:30 08/24/24 07:29 Ketorolac Tromethamine (toRADol) 15 mg Q8H PRN IV MODERATE PAIN (4-6) 07/25/24 07:00 07/30/24 06:59 07/26/24 06:38 15 MG Lactated Ringer's (Lactated Ringers 1000ml) 1,000 ml BOLUS STAT IV 07/25/24 02:38 07/25/24 02:42 DC 07/25/24 03:12 1,000 ML Lactulose (Constulose 20gm/ 30ml Udcup) 20 gm BID PRN PO CONSTIPATION 07/25/24 07:00 08/24/24 06:59 Levetiracetam (kepPRA 500 MG TABLET) 1,000 mg BID PO 07/26/24 21:00 08/25/24 20:59 Lisinopril (Prinivil 10mg) 10 mg DAILY PO 07/26/24 09:00 08/25/24 08:59 07/26/24 09:10 10 MG Magnesium Sulfate 50 ml @ 0 mls/hr PROTOCOL PRN IV other 07/25/24 07:00 08/24/24 06:59 Morphine Sulfate (morPHINE 2MG SYG) 1 mg Q4H PRN IVP SEVERE PAIN (7-10) IF NPO 07/25/24 07:00 08/01/24 06:59 07/26/24 13:32 1 MG Multivitamins/Iron (Hematinic Plus Tab) 1 tab DAILY PO 07/27/24 09:00 08/26/24 08:59 Ondansetron HCl (zoFRAN 4MG INJ) 4 mg Q6H PRN IV NAUSEA/VOMITING 07/25/24 07:00 08/24/24 06:59 07/25/24 15:25 4 MG Oxycodone/ Acetaminophen (perCOCET) 1 tab Q6H PRN PO SEVERE PAIN (7-10) 07/25/24 07:00 07/25/24 09:24 DC Piperacillin Sod/ Tazobactam Sod (Zosyn 3.375gm+NS 50ml) 3.375 gm ZOSY8 IV 07/25/24 21:00 08/04/24 20:59 07/26/24 13:32 3.375 GM Potassium Chloride 100 ml @ 100 mls/hr AD PRN IV POTASSIUM PROTOCOL 07/25/24 07:00 07/25/24 06:59 DC Potassium Chloride 100 ml @ 100 mls/hr AD PRN IV POTASSIUM PROTOCOL 07/25/24 07:00 08/24/24 06:59 Potassium Chloride (K-Dur/Klor-Con 20meq) 10 meq AD PRN PO POTASSIUM PROTOCOL 07/25/24 07:00 07/25/24 06:59 DC Potassium Chloride (K-Dur/Klor-Con 20meq) 20 meq AD PRN PO POTASSIUM PROTOCOL 07/25/24 07:00 08/24/24 06:59 Potassium Chloride (KCl 10% Elixir 20meq/15ml) 10 meq AD PRN PO POTASSIUM PROTOCOL 07/25/24 07:00 07/25/24 06:59 DC Potassium Chloride (KCl 10% Elixir 20meq/15ml) 20 meq AD PRN PO POTASSIUM PROTOCOL 07/25/24 07:00 08/24/24 06:59 Sennosides (Senna) 1 tab DAILY PRN PO CONSTIPATION 07/26/24 15:00 08/25/24 14:59 Sodium Chloride 1,000 ml @ 75 mls/hr [id number] IV 07/25/24 07:00 08/24/24 06:59 07/26/24 10:24 75 MLS/HR Vancomycin HCl 250 ml @ 125 mls/hr ONCE IV 07/25/24 18:00 07/25/24 21:00 DC 07/25/24 17:58 125 MLS/HR Vancomycin HCl 250 ml @ 125 mls/hr Q12H IV 07/25/24 21:00 07/25/24 11:35 DC Vancomycin HCl 250 ml @ 125 mls/hr Q12H9 IV 07/26/24 09:00 08/05/24 08:59 07/26/24 09:09 125 MLS/HR Vancomycin HCl (Vancomycin Protocol) 1 each AD IV 07/25/24 17:30 08/08/24 17:29 Vancomycin HCl (Vancomycin Protocol) 1 each PROTOCOL PRN IV VANCOMYCIN PROTOCOL 07/25/24 07:00 07/25/24 11:35 DC Zolpidem Tartrate (AmbIEN) 5 mg HS PRN PO INSOMNIA 07/25/24 07:00 08/24/24 06:59 07/25/24 20:48 5 MG DIAGNOSTICS / RADIOLOGY: [ ] ASSESSMENT: [Severe abdominal pain possibly due to fluid collection POA Intractable nausea and vomiting possibly due to above POA Body fluid culture growing Enterococcus faecalis 07/21/2024 POA Recent acute complicated cystitis infection 07/16/2024 on Bactrim discharge POA Urine culture positive Klebsiella pneumoniae 07/16/2024 POA Abdominal fluid collection per CT abdomen/pelvis POA Gastroparesis POA Seizures POA Uncontrolled hypertension POA Depression POA Electrolyte imbalance hypokalemia 3.1 POA Neurogenic bladder dysfunction POA BP shunt POA Spinal bifida POA Anxiety POA Chronic pancreatitis POA History of G-tube placement History of small bowel resection History of AV shunt placement History of colostomy placement and closure History of cholecystectomy History of appendectomy ] PLAN: [ Admit to: Medical-surgical floor with telemetry Consults: ID, surgeon, IR Antibiotics: Ceftriaxone, vanco Tests: Chest x-ray, CT abdomen/pelvis NEURO: Minimize central acting medications as possible. Fall Precautions. Well lighted room through the day and minimize interruptions through the night to prevent acute delirium. PULMONARY: Chest x-ray pending Supplemental 02 as needed BiPAP as necessary, for respiratory distress Titrate Fio2 to keep Spo2 > or = 90% DuoNebs and CPT as needed IS hourly while awake for pulmonary hygiene Out of bed to chair as tolerated VAP Bundle Maintain aspiration precautions at all times CARDIOVASCULAR: Follow hemodynamics. Vital signs per facility protocol GI & NUTRITION: CT abdomen/pelvis pending Continue nutritional support Aspirations precautions Prokinetic agents and laxatives as needed KIDNEYS & ELECTROLYTES: Normal saline at 75 mL/hour Strict monitoring of intake and output Daily weights Avoid nephrotoxic agents Monitor electrolytes and replace as needed Goal urine output of 30mL/hr or 0.5mL/kg/hr Medications to be dosed according to renal function. Avoid contrast if possible ENDOCRINE: Maintain blood glucose between 100-180 at all times. Insulin sliding scale for blood glucose management Hypoglycemia and hyperglycemia protocol in place INFECTIOUS DISEASE: Trend temperature, WBC and procalcitonin level Follow cultures, deescalate antibiotics as soon as possible. Panculture if new onset fever HEMATOLOGY & COAGULATION: Monitor H&H. Keep Hgb > 7 Transfuse 1 unit of PRBC for Hgb < 7 Transfuse 1 pack of platelets of platelets < 20, 000 Watch for any signs and symptoms of bleeding SKIN: Pressure ulcer prevention per facility protocol Specialty mattress as needed Treatment plan discussed with patient and family at the bedside Medications to be reconciled once obtained by patient and/or family and available to be reconciled in computer p.r.n. medication for pain nausea and vomiting Questions were answered We will continue to monitor the patient closely [employer] for disposition Rehab: PT/OT GI: PPI DVT: SCD's Code Status: Full Resuscitation Disposition: TBD Prognosis: Guarded] VALENTINA WELCH MD July 26, 2024 16:26
[2024-07-26] MEDS: leveTIRACEtam 500 MG TABLET PO SCH (20:25)
[2024-07-26] MEDS: hydroMORPHone 0.5 MG SYG (0.5MG/0.5ML) IVP PRN (20:40)
[2024-07-26] MEDS: ALPRAZolam 1 MG TAB PO PRN (21:00)
[2024-07-27] VITALS (7 sets, daily range): BP systolic 107–143; BP diastolic 65–99; PULSE 62–85; RESP 16–20; TEMP 97.9–98.6; O2SAT 96–99
[2024-07-27] MEDS: FE FUMARATE/FA/MV, MIN COMB#15 1 TAB PO SCH (09:44)
[2024-07-27] MEDS: VANCOMYCIN 750MG VIAL IVPB SCH (09:51)
--- NOTE | 2024-07-27 13:55 | PN ---
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 Vitals/Labs Vital Signs Date Time Temp Pulse Resp B/P (MAP) Pulse Ox O2 Delivery O2 Flow Rate FiO2 07/27/24 12:00 98.1 64 18 107/74 98 Room Air 07/26/24 20:20 0 21 Medications Current Medications Morphine Sulfate 5 mg ONCE ONCE IVP; Start 07/25/24 at 01:00; Stop 07/25/24 at 01:07; Status DC Morphine Sulfate 5 mg ONCE ONCE IM Last administered on 07/25/24at 01:12; Start 07/25/24 at 01:30; Stop 07/25/24 at 01:31; Status DC Ondansetron HCl 4 mg ONCE ONCE SL Last administered on 07/25/24at 01:21; Start 07/25/24 at 01:30; Stop 07/25/24 at 01:31; Status DC Ketorolac Tromethamine 30 mg ONCE ONCE IVP Last administered on 07/25/24at 03:12; Start 07/25/24 at 03:00; Stop 07/25/24 at 03:01; Status DC Lactated Ringer's 1,000 ml BOLUS STAT IV Last administered on 07/25/24at 03:12; Start 07/25/24 at 02:38; Stop 07/25/24 at 02:42; Status DC Iohexol 35,000 mg STK-MED ONCE IV; Start 07/25/24 at 04:25; Stop 07/25/24 at 04:25; Status DC Potassium Bicarbonate 50 meq ONCE ONCE PO Last administered on 07/25/24at 05:16; Start 07/25/24 at 05:00; Stop 07/25/24 at 05:01; Status DC Insulin Human Regular INSULIN SLIDING SCAL... ACHS SQ; Start 07/25/24 at 07:30; Stop 08/24/24 at 07:29 Dextrose 50 ml AD PRN IV; Start 07/25/24 at 07:00; Stop 08/24/24 at 06:59 Glucagon 1 mg AD PRN IM; Start 07/25/24 at 07:00; Stop 08/24/24 at 06:59 Potassium Chloride 100 ml @ 100 mls/hr AD PRN IV; Start 07/25/24 at 07:00; Stop 07/25/24 at 06:59; Status DC Potassium Chloride 10 meq AD PRN PO; Start 07/25/24 at 07:00; Stop 07/25/24 at 06:59; Status DC Potassium Chloride 10 meq AD PRN PO; Start 07/25/24 at 07:00; Stop 07/25/24 at 06:59; Status DC Potassium Chloride 100 ml @ 100 mls/hr AD PRN IV; Start 07/25/24 at 07:00; Stop 08/24/24 at 06:59 Potassium Chloride 20 meq AD PRN PO; Start 07/25/24 at 07:00; Stop 08/24/24 at 06:59 Potassium Chloride 20 meq AD PRN PO; Start 07/25/24 at 07:00; Stop 08/24/24 at 06:59 Magnesium Sulfate 50 ml @ 0 mls/hr PROTOCOL PRN IV; Start 07/25/24 at 07:00; Stop 08/24/24 at 06:59 Diphenhydramine HCl 25 mg Q6H PRN IV; Start 07/25/24 at 07:00; Stop 08/24/24 at 06:59 Acetaminophen 650 mg Q6H PRN PO; Start 07/25/24 at 07:00; Stop 08/24/24 at 06:59 Acetaminophen 650 mg Q4H PRN PO; Start 07/25/24 at 07:00; Stop 07/25/24 at 07:10; Status DC Ondansetron HCl 4 mg Q6H PRN IV Last administered on 07/25/24at 15:25; Start 07/25/24 at 07:00; Stop 08/24/24 at 06:59 Zolpidem Tartrate 5 mg HS PRN PO Last administered on 07/26/24at 21:00; Start 07/25/24 at 07:00; Stop 08/24/24 at 06:59 Al Hydroxide/Mg Hydroxide 30 ml Q6H PRN PO; Start 07/25/24 at 07:00; Stop 08/24/24 at 06:59 Lactulose 20 gm BID PRN PO; Start 07/25/24 at 07:00; Stop 08/24/24 at 06:59 Famotidine 20 mg BID PRN IV; Start 07/25/24 at 07:00; Stop 07/25/24 at 07:10; Status DC Heparin Sodium (Porcine) 5,000 unit BID SQ Last administered on 07/27/24at 09:50; Start 07/25/24 at 09:00; Stop 08/24/24 at 08:59 Acetaminophen 650 mg Q6H PRN PO; Start 07/25/24 at 07:00; Stop 08/24/24 at 06:59 Ketorolac Tromethamine 15 mg Q8H PRN IV Last administered on 07/26/24at 06:38; Start 07/25/24 at 07:00; Stop 07/30/24 at 06:59 Oxycodone/ Acetaminophen 1 tab Q6H PRN PO; Start 07/25/24 at 07:00; Stop 07/25/24 at 09:24; Status DC Morphine Sulfate 1 mg Q4H PRN IVP Last administered on 07/26/24at 13:32; Start 07/25/24 at 07:00; Stop 07/26/24 at 16:27; Status DC Vancomycin HCl 1 each PROTOCOL PRN IV; Start 07/25/24 at 07:00; Stop 07/25/24 at 11:35; Status DC Sodium Chloride 1,000 ml @ 75 mls/hr [id number] IV Last administered on 07/27/24at 11:33; Start 07/25/24 at 07:00; Stop 08/24/24 at 06:59 Ceftriaxone Sodium 2 gm/ Sodium Chloride 100 ml @ 200 mls/hr Q24H IV; Start 07/25/24 at 07:00; Stop 07/25/24 at 07:13; Status DC Hydralazine HCl 10 mg Q6H PRN IV; Start 07/25/24 at 07:00; Stop 08/24/24 at 06:59 Famotidine 20 mg BID IV Last administered on 07/27/24at 09:44; Start 07/25/24 at 09:00; Stop 08/24/24 at 08:59 Ceftriaxone Sodium 2 gm Q24H IVPB Last administered on 07/25/24at 08:39; Start 07/25/24 at 07:30; Stop 07/25/24 at 11:35; Status DC Vancomycin HCl 250 ml @ 125 mls/hr ONCE ONCE IV Last administered on 07/25/24at 08:38; Start 07/25/24 at 09:00; Stop 07/25/24 at 10:59; Status DC Vancomycin HCl 250 ml @ 125 mls/hr Q12H IV; Start 07/25/24 at 21:00; Stop 07/25/24 at 11:35; Status DC Furosemide 20 mg DAILY PO Last administered on 07/27/24at 09:44; Start 07/26/24 at 09:00; Stop 08/25/24 at 08:59 Lisinopril 10 mg DAILY PO Last administered on 07/26/24at 09:10; Start 07/26/24 at 09:00; Stop 08/25/24 at 08:59 Hydroxyzine HCl 25 mg HS PRN PO; Start 07/25/24 at 09:30; Stop 08/24/24 at 09:29 Home Med (Plecanatide (Trulance) 1 TAB) DAILY PO; Start 07/26/24 at 09:00; Stop 08/25/24 at 08:59 Piperacillin Sod/ Tazobactam Sod 3.375 gm ZOSY8 IV Last administered on 07/27/24at 13:34; Start 07/25/24 at 21:00; Stop 08/04/24 at 20:59 Vancomycin HCl 1 each AD IV; Start 07/25/24 at 17:30; Stop 08/08/24 at 17:29 Benzocaine 1 each Q6H6 PRN MM Last administered on 07/25/24at 17:58; Start 07/25/24 at 18:00; Stop 08/24/24 at 17:59 Vancomycin HCl 250 ml @ 125 mls/hr ONCE IV Last administered on 07/25/24at 17:58; Start 07/25/24 at 18:00; Stop 07/25/24 at 21:00; Status DC Vancomycin HCl 250 ml @ 125 mls/hr Q12H9 IV Last administered on 07/26/24at 09:09; Start 07/26/24 at 09:00; Stop 07/26/24 at 21:57; Status DC Multivitamins/Iron 1 tab DAILY PO Last administered on 07/27/24at 09:44; Start 07/27/24 at 09:00; Stop 08/26/24 at 08:59 Sennosides 1 tab DAILY PRN PO; Start 07/26/24 at 15:00; Stop 08/25/24 at 14:59 Alprazolam 2 mg TID PRN PO Last administered on 07/26/24at 21:00; Start 07/26/24 at 15:30; Stop 08/02/24 at 15:29 Levetiracetam 1,000 mg BID PO Last administered on 07/27/24at 09:45; Start 07/26/24 at 21:00; Stop 08/25/24 at 20:59 Hydromorphone HCl 0.2 mg Q4H PRN IVP Last administered on 07/27/24at 09:43; Start 07/26/24 at 16:30; Stop 07/31/24 at 16:29 Vancomycin HCl 750 mg BID IVPB Last administered on 07/27/24at 09:51; Start 07/27/24 at 09:00; Stop 08/06/24 at 08:59 TIFFANIE GRIFFIN Jr. July 27, 2024 13:55
--- NOTE | 2024-07-27 14:00 | PN ---
[facility] PROGRESS NOTE Date of Service: July 27, 2024 Time of Service: 13:59 SUBJECTIVE: [ ] 07/26/24 Patient was seen and examined. Case discussed with the RN She complains abdominal pain on broad-spectrum IV antibiotics for a UTI. 07/27/24 patient seen and examined. Case discussed with the RN. Her abdominal pain has improved. She is on broad-spectrum IV antibiotics for UTI. Sensiti vities are await REVIEW OF SYSTEMS CONSTITUTIONAL: Denies fevers, chills, or night sweats. No unintentional weight loss reported. NEUROLOGICAL: Denies headache, amaurosis fugax, motor weakness, sensory deficit, vertigo/spinning sensation, gait abnormalities, or tremors. ENT: No hearing loss, otalgia, otorrhea, rhinitis, rhinorrhea, hoarseness, or sore throat. CARDIOVASCULAR: Denies any exertional angina, dyspnea on exertion, orthopnea, paroxysmal nocturnal dyspnea, palpitations, life-threatening arrhythmias, darian dication. PULMONARY: Denies any shortness of breath, cough, phlegm/sputum, hemoptysis, pleuritic chest pain. SLEEP: Denies morning headaches, daytime somnolence or napping. Denies difficulty falling asleep, staying asleep, waking from sleep. Denies knowledge of snoring. GASTROINTESTINAL: Denies any type of dysphagia to either liquids or solids. Denies pyrosis, early satiety, diarrhea, constipation, or changes in stool consistency or caliber. Denies coffee-ground emesis, hematemesis, hematochezia, or melanotic stools. Intractable nausea and vomiting. Severe abdominal pain GENITOURINARY: Denies frequency, urgency, nocturia, hematuria or incontinence (Storage/Irritative symptoms.) Low urinary stream, straining to void, urinary intermittency or hesitancy, splitting of the voiding stream, terminal dribbling. ENDOCRINOLOGIC: Denies polyuria, polydipsia, polyphagia or heat/cold intolerances. HEMATOLOGIC: Denies thrombophilia/previous clots, or coagulopathy/bleeding disorders. ONCOLOGIC: Denies personal history of malignancy. DERMATOLOGIC: Denies rashes or pruritus. PSYCHIATRIC: Denies any suicidal or homicidal ideation. Denies hallucinations. PHYSICAL EXAM GENERAL APPEARANCE: The patient is awake, alert, and oriented, in no acute cardiopulmonary distress. NEUROLOGICAL: Cranial nerves II-XII grossly intact. Motor is 5/5 in bilateral upper and lower extremities proximal to distal. No sensory deficits. HEENT: Face is symmetric. Pupils are equal and reactive. Extraocular movements are intact. NECK: Supple. No JVD. No thyromegaly. No submental, submandibular, pre- /postauricular, occipital or supraclavicular lymphadenopathy. CHEST: Normal chest expansion. No Telemetry. LUNGS: Absence of any rales, rhonchi or any wheezing. CARDIOVASCULAR: Regular. S1 and S2 normal. No appreciable rubs, murmurs or gallops. ABDOMEN: Soft, tender, and nondistended. There is no rebound, voluntary guarding, or rigidity. : Deferred. No Carnes. EXTREMITIES: Non-edematous and not cyanotic. No clubbing. Good capillary refill. SKIN: No skin breakdown. Vital Signs (last 8hr) Date Time Temp Pulse Resp B/P (MAP) Pulse Ox O2 Delivery O2 Flow Rate FiO2 07/27/24 12:00 98.1 64 18 107/74 98 Room Air 07/27/24 08:00 97.9 76 18 110/78 98 Room Air LABS: Laboratory: Test 07/27/24 11:04 07/26/24 20:50 07/26/24 11:22 07/26/24 06:42 Range/Units Whole Blood Glucose 87 70-110 MG/DL Vancomycin Level Trough 21.5 H 10.0-20.0 UG/ML Bedside Glucose Comment Notified Nurse White Blood Count 3.9 L 4.8-10.8 K/uL Red Blood Count 3.68 L 4.00-5.50 MIL/uL Hemoglobin 10.6 L 12.0-16.0 g/dL Hematocrit 33.8 L 36-48 % Mean Corpuscular Volume 91.8 79-99 fL Mean Corpuscular Hemoglobin 28.8 27.0-33.0 pg Mean Corpuscular Hemoglobin Concent 31.4 L 32.0-36.0 g/dL Red Cell Distribution Width 13.8 11.0-15.5 % Platelet Count 186 # 130-400 K/uL Mean Platelet Volume 9.7 7.5-10.5 fL Immature Granulocyte % (Auto) 0.0 0-1 % Neutrophils (%) (Auto) 61.3 40.0-77.0 % Lymphocytes (%) (Auto) 25.8 21.0-51.0 % Monocytes (%) (Auto) 5.4 3.0-13.0 % Eosinophils (%) (Auto) 7.2 0.0-8.0 % Basophils (%) (Auto) 0.3 0.0-5.0 % Neutrophils # (Auto) 2.4 1.8-7.7 K/uL Lymphocytes # (Auto) 1.0 1.0-4.8 K/uL Monocytes # (Auto) 0.2 0.1-1.0 K/uL Eosinophils # (Auto) 0.28 0.00-0.70 K/uL Basophils # (Auto) 0.01 0.00-0.20 K/uL Absolute Immature Granulocyte (auto 0.00 0-1 K/uL Nucleated Red Blood Cells 0.0 0.0-0.19 % Sodium Level 140 136-145 mmol/L Potassium Level 4.0 3.5-5.1 mmol/L Chloride Level 110 101-111 mmol/L Carbon Dioxide Level 24 21-32 mmol/L Blood Urea Nitrogen 8 7-18 mg/dL Creatinine 0.9 0.5-1.0 mg/dL Glomerular Filtration Rate Calc 81 >90 mL/min Random Glucose 80 70-105 mg/dL Lactic Acid Level 0.9 0.8-2.5 mmol/L Total Calcium 8.5 8.5-10.1 mg/dL Magnesium Level 1.90 1.80-2.40 mg/dL Total Bilirubin 0.5 0.2-1.0 mg/dL Direct Bilirubin 0.1 0.0-0.3 mg/dL Aspartate Amino Transf (AST/SGOT) 30 10-37 U/L Alanine Aminotransferase (ALT/SGPT) 34 12-78 U/L Alkaline Phosphatase 154 H 50-136 U/L Ammonia 14 11-32 umol/L Total Creatine Kinase 27 # 21-232 U/L B-Type Natriuretic Peptide 24 0-100 pg/mL Total Protein 5.8 L 6.0-8.3 g/dL Albumin 3.1 L 3.5-5.0 g/dL Procalcitonin < 0.05 L 0.05-0.5 ng/mL Current Medications Medications (Trade) Dose Ordered Sig/Sandi Route PRN Reason Start Time Stop Time Status Last Admin Dose Admin Acetaminophen (TYLenol 325MG TAB) 650 mg Q4H PRN PO MILD PAIN (1-3) 07/25/24 07:00 07/25/24 07:10 DC Acetaminophen (TYLenol 325MG TAB) 650 mg Q6H PRN PO MILD PAIN (1-3) 07/25/24 07:00 08/24/24 06:59 Acetaminophen (TYLenol 325MG TAB) 650 mg Q6H PRN PO TEMPERATURE GREATER THAN 101.5 07/25/24 07:00 08/24/24 06:59 Al Hydroxide/Mg Hydroxide (MAALox PLUS 30ML) 30 ml Q6H PRN PO INDIGESTION 07/25/24 07:00 08/24/24 06:59 Alprazolam (XANax 1MG) 2 mg TID PRN PO ANXIETY 07/26/24 15:30 08/02/24 15:29 07/26/24 21:00 2 MG Benzocaine (Cepacol Sore Throat Lozenge) 1 each Q6H6 PRN MM SORE THROAT 07/25/24 18:00 08/24/24 17:59 07/25/24 17:58 1 EACH Ceftriaxone Sodium 2 gm/ Sodium Chloride 100 ml @ 200 mls/hr Q24H IV 07/25/24 07:00 07/25/24 07:13 DC Ceftriaxone Sodium (Rocephin 2gm Inj) 2 gm Q24H IVPB 07/25/24 07:30 07/25/24 11:35 DC 07/25/24 08:39 2 GM Dextrose (D50w) 50 ml AD PRN IV HYPOGLYCEMIA PROTOCOL 07/25/24 07:00 08/24/24 06:59 Diphenhydramine HCl (BENAdryl INJ) 25 mg Q6H PRN IV SEVERE ITCHING/RASH 07/25/24 07:00 08/24/24 06:59 Famotidine (Pepcid 20mg Vial) 20 mg BID IV 07/25/24 09:00 08/24/24 08:59 07/27/24 09:44 20 MG Famotidine (Pepcid 20mg Vial) 20 mg BID PRN IV NAUSEA/VOMITING 07/25/24 07:00 07/25/24 07:10 DC Furosemide (LASix 20MG TAB) 20 mg DAILY PO 07/26/24 09:00 08/25/24 08:59 07/27/24 09:44 20 MG Glucagon (Glucagon 1mg Kit) 1 mg AD PRN IM HYPOGLYCEMIA PROTOCOL 07/25/24 07:00 08/24/24 06:59 Heparin Sodium (Porcine) (HEParin 5,000 UNIT VIAL) 5,000 unit BID SQ 07/25/24 09:00 08/24/24 08:59 07/27/24 09:50 5,000 UNIT Home Med (Home Medication) (Plecanatide (Trulance) 1 TAB) DAILY PO 07/26/24 09:00 08/25/24 08:59 Hydralazine HCl (APRESOLine 20MG INJ) 10 mg Q6H PRN IV For:SBP above 160;DBP above 90 07/25/24 07:00 08/24/24 06:59 Hydromorphone HCl (DiLAUDid 0.5MG INJ) 0.2 mg Q4H PRN IVP SEVERE PAIN (7-10) 07/26/24 16:30 07/31/24 16:29 07/27/24 09:43 0.2 MG Hydroxyzine HCl (ATArax 25MG TAB) 25 mg HS PRN PO SLEEP 07/25/24 09:30 08/24/24 09:29 Insulin Human Regular (humuLIN R 100 UNIT/ML 3ML) INSULIN SLIDING SCAL... ACHS SQ 07/25/24 07:30 08/24/24 07:29 Ketorolac Tromethamine (toRADol) 15 mg Q8H PRN IV MODERATE PAIN (4-6) 07/25/24 07:00 07/30/24 06:59 07/26/24 06:38 15 MG Lactated Ringer's (Lactated Ringers 1000ml) 1,000 ml BOLUS STAT IV 07/25/24 02:38 07/25/24 02:42 DC 07/25/24 03:12 1,000 ML Lactulose (Constulose 20gm/ 30ml Udcup) 20 gm BID PRN PO CONSTIPATION 07/25/24 07:00 08/24/24 06:59 Levetiracetam (kepPRA 500 MG TABLET) 1,000 mg BID PO 07/26/24 21:00 08/25/24 20:59 07/27/24 09:45 1,000 MG Lisinopril (Prinivil 10mg) 10 mg DAILY PO 07/26/24 09:00 08/25/24 08:59 07/26/24 09:10 10 MG Magnesium Sulfate 50 ml @ 0 mls/hr PROTOCOL PRN IV other 07/25/24 07:00 08/24/24 06:59 Morphine Sulfate (morPHINE 2MG SYG) 1 mg Q4H PRN IVP SEVERE PAIN (7-10) IF NPO 07/25/24 07:00 07/26/24 16:27 DC 07/26/24 13:32 1 MG Multivitamins/Iron (Hematinic Plus Tab) 1 tab DAILY PO 07/27/24 09:00 08/26/24 08:59 07/27/24 09:44 1 TAB Ondansetron HCl (zoFRAN 4MG INJ) 4 mg Q6H PRN IV NAUSEA/VOMITING 07/25/24 07:00 08/24/24 06:59 07/25/24 15:25 4 MG Oxycodone/ Acetaminophen (perCOCET) 1 tab Q6H PRN PO SEVERE PAIN (7-10) 07/25/24 07:00 07/25/24 09:24 DC Piperacillin Sod/ Tazobactam Sod (Zosyn 3.375gm+NS 50ml) 3.375 gm ZOSY8 IV 07/25/24 21:00 08/04/24 20:59 07/27/24 13:34 3.375 GM Potassium Chloride 100 ml @ 100 mls/hr AD PRN IV POTASSIUM PROTOCOL 07/25/24 07:00 07/25/24 06:59 DC Potassium Chloride 100 ml @ 100 mls/hr AD PRN IV POTASSIUM PROTOCOL 07/25/24 07:00 08/24/24 06:59 Potassium Chloride (K-Dur/Klor-Con 20meq) 10 meq AD PRN PO POTASSIUM PROTOCOL 07/25/24 07:00 07/25/24 06:59 DC Potassium Chloride (K-Dur/Klor-Con 20meq) 20 meq AD PRN PO POTASSIUM PROTOCOL 07/25/24 07:00 08/24/24 06:59 Potassium Chloride (KCl 10% Elixir 20meq/15ml) 10 meq AD PRN PO POTASSIUM PROTOCOL 07/25/24 07:00 07/25/24 06:59 DC Potassium Chloride (KCl 10% Elixir 20meq/15ml) 20 meq AD PRN PO POTASSIUM PROTOCOL 07/25/24 07:00 08/24/24 06:59 Sennosides (Senna) 1 tab DAILY PRN PO CONSTIPATION 07/26/24 15:00 08/25/24 14:59 Sodium Chloride 1,000 ml @ 75 mls/hr [id number] IV 07/25/24 07:00 08/24/24 06:59 07/27/24 11:33 75 MLS/HR Vancomycin HCl 250 ml @ 125 mls/hr ONCE IV 07/25/24 18:00 07/25/24 21:00 DC 07/25/24 17:58 125 MLS/HR Vancomycin HCl 250 ml @ 125 mls/hr Q12H IV 07/25/24 21:00 07/25/24 11:35 DC Vancomycin HCl 250 ml @ 125 mls/hr Q12H9 IV 07/26/24 09:00 07/26/24 21:57 DC 07/26/24 09:09 125 MLS/HR Vancomycin HCl (Vancomycin 750mg) 750 mg BID IVPB 07/27/24 09:00 08/06/24 08:59 07/27/24 09:51 750 MG Vancomycin HCl (Vancomycin Protocol) 1 each AD IV 07/25/24 17:30 08/08/24 17:29 Vancomycin HCl (Vancomycin Protocol) 1 each PROTOCOL PRN IV VANCOMYCIN PROTOCOL 07/25/24 07:00 07/25/24 11:35 DC Zolpidem Tartrate (AmbIEN) 5 mg HS PRN PO INSOMNIA 07/25/24 07:00 08/24/24 06:59 07/26/24 21:00 5 MG DIAGNOSTICS / RADIOLOGY: [ ] ASSESSMENT: [Severe abdominal pain possibly due to fluid collection POA Intractable nausea and vomiting possibly due to above POA Body fluid culture growing Enterococcus faecalis 07/21/2024 POA Recent acute complicated cystitis infection 07/16/2024 on Bactrim discharge POA Urine culture positive Klebsiella pneumoniae 07/16/2024 POA Abdominal fluid collection per CT abdomen/pelvis POA Gastroparesis POA Seizures POA Uncontrolled hypertension POA Depression POA Electrolyte imbalance hypokalemia 3.1 POA Neurogenic bladder dysfunction POA BP shunt POA Spinal bifida POA Anxiety POA Chronic pancreatitis POA History of G-tube placement History of small bowel resection History of AV shunt placement History of colostomy placement and closure History of cholecystectomy History of appendectomy ] PLAN: [ Admit to: Medical-surgical floor with telemetry Consults: ID, surgeon, IR Antibiotics: Ceftriaxone, vanco Tests: Chest x-ray, CT abdomen/pelvis NEURO: Minimize central acting medications as possible. Fall Precautions. Well lighted room through the day and minimize interruptions through the night to prevent acute delirium. PULMONARY: Chest x-ray pending Supplemental 02 as needed BiPAP as necessary, for respiratory distress Titrate Fio2 to keep Spo2 > or = 90% DuoNebs and CPT as needed IS hourly while awake for pulmonary hygiene Out of bed to chair as tolerated VAP Bundle Maintain aspiration precautions at all times CARDIOVASCULAR: Follow hemodynamics. Vital signs per facility protocol GI & NUTRITION: CT abdomen/pelvis pending Continue nutritional support Aspirations precautions Prokinetic agents and laxatives as needed KIDNEYS & ELECTROLYTES: Normal saline at 75 mL/hour Strict monitoring of intake and output Daily weights Avoid nephrotoxic agents Monitor electrolytes and replace as needed Goal urine output of 30mL/hr or 0.5mL/kg/hr Medications to be dosed according to renal function. Avoid contrast if possible ENDOCRINE: Maintain blood glucose between 100-180 at all times. Insulin sliding scale for blood glucose management Hypoglycemia and hyperglycemia protocol in place INFECTIOUS DISEASE: Trend temperature, WBC and procalcitonin level Follow cultures, deescalate antibiotics as soon as possible. Panculture if new onset fever HEMATOLOGY & COAGULATION: Monitor H&H. Keep Hgb > 7 Transfuse 1 unit of PRBC for Hgb < 7 Transfuse 1 pack of platelets of platelets < 20, 000 Watch for any signs and symptoms of bleeding SKIN: Pressure ulcer prevention per facility protocol Specialty mattress as needed Treatment plan discussed with patient and family at the bedside Medications to be reconciled once obtained by patient and/or family and available to be reconciled in computer p.r.n. medication for pain nausea and vomiting Questions were answered We will continue to monitor the patient closely [employer] Portal Developer for disposition Rehab: PT/OT GI: PPI DVT: SCD's Code Status: Full Resuscitation Disposition: TBD Prognosis: Guarded] VALENTINA WELCH MD July 27, 2024 14:00
[2024-07-28] VITALS (8 sets, daily range): BP systolic 107–158; BP diastolic 64–88; PULSE 59–77; RESP 16–20; TEMP 98.2–98.5; O2SAT 95–97
[2024-07-28 09:10] LABS: BASOPHILS # (AUTO) 0.02 K/uL (0.00-0.20); BASOPHILS % (AUTO) 0.4 % (0.0-5.0); EOSINOPHILS # (AUTO) 0.31 K/uL (0.00-0.70); EOSINOPHILS % (AUTO) 5.8 % (0.0-8.0); HEMATOCRIT 39.8 % (36-48); IMMATURE GRANULOCYTE ABSOLUTE 0.01 K/uL (0-1); LYMPHOCYTES # (AUTO) 1.4 K/uL (1.0-4.8); MEAN CORPUSCULAR HEMOGLOBIN 28.8 pg (27.0-33.0); MEAN CORPUSCULAR HGB CONC 31.9 g/dL (32.0-36.0); MEAN CORPUSCULAR VOLUME 90.2 fL (79-99); MONOCYTES # (AUTO) 0.3 K/uL (0.1-1.0); MONOCYTES % (AUTO) 4.7 % (3.0-13.0); NEUTROPHILS # (AUTO) 3.3 K/uL (1.8-7.7); NEUTROPHILS % (AUTO) 61.9 % (40.0-77.0); PLATELET COUNT (AUTO) 197 K/uL (130-400); RED BLOOD CELL COUNT(AUTO) 4.41 MIL/uL (4.00-5.50); RED CELL DISTRIBUTION WIDTH 13.7 % (11.0-15.5); WHITE BLOOD COUNT (AUTO) 5.3 K/uL (4.8-10.8)
[2024-07-28 09:24] LABS: ALBUMIN 3.9 g/dL (3.5-5.0); BILIRUBIN,TOTAL 0.4 mg/dL (0.2-1.0); POTASSIUM 4.1 mmol/L (3.5-5.1); TOTAL PROTEIN, SERUM 7.1 g/dL (6.0-8.3)
--- NOTE | 2024-07-28 13:23 | NUR ---
Discharge Planning: No surgical intervention necessary. Pt. remains on iv fluids and iv abx for UTI. Pending recs from ID for abx.
--- NOTE | 2024-07-28 16:00 | PN ---
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 At the time of presentation vital signs -temperature 98.6 pulse 76 respiration 18 blood pressure 123/84. Patient is on room air satting 100%. WBC 6.3 hemoglobin 12.7 hematocrit 40.3 platelets 325. UA negative. Sodium 138 potassium 3.1 CO2 23 BUN 23 creatinine six GFR one glucose 105 total calcium 8.8 bilirubin 0.4 AST 86 ALT [address] abdomen/pelvis is showing small amount of fluid in the pelvis . Chest x-ray remarkable at the time of admission. Patient will be admitted under hospitalist care for further evaluation/recommendation. 07/26/24 Patient was seen and examined. Case discussed with the RN She complains abdominal pain on broad-spectrum IV antibiotics for a UTI. 07/27/24 patient seen and examined. Case discussed with the RN. Her abdominal pain has improved. She is on broad-spectrum IV antibiotics for UTI. Sensitivities are await 07/28/24: Patient with complaints of vomiting. Culture growing Klebsiella pneumoniae resistant to Zosyn this time. Infectious Disease recommendations appreciated. Surgery recommended no active intervention this time. Pending disposition plans for possible long-term IV antibiotics. REVIEW OF SYSTEMS CONSTITUTIONAL: Denies fevers, chills, or night sweats. No unintentional weight loss reported. NEUROLOGICAL: Denies headache, amaurosis fugax, motor weakness, sensory deficit, vertigo/spinning sensation, gait abnormalities, or tremors. ENT: No hearing loss, otalgia, otorrhea, rhinitis, rhinorrhea, hoarseness, or sore throat. CARDIOVASCULAR: Denies any exertional angina, dyspnea on exertion, orthopnea, paroxysmal nocturnal dyspnea, palpitations, life-threatening arrhythmias, claudication. PULMONARY: Denies any shortness of breath, cough, phlegm/sputum, hemoptysis, pleuritic chest pain. SLEEP: Denies morning headaches, daytime somnolence or napping. Denies difficulty falling asleep, staying asleep, waking from sleep. Denies knowledge of snoring. GASTROINTESTINAL: Denies any type of dysphagia to either liquids or solids. Denies pyrosis, early satiety, diarrhea, constipation, or changes in stool consistency or caliber. Denies coffee-ground emesis, hematemesis, hematochezia, or melanotic stools. Intractable nausea and vomiting. Severe abdominal pain GENITOURINARY: Denies frequency, urgency, nocturia, hematuria or incontinence (Storage/Irritative symptoms.) Low urinary stream, straining to void, urinary intermittency or hesitancy, splitting of the voiding stream, terminal dribbling. ENDOCRINOLOGIC: Denies polyuria, polydipsia, polyphagia or heat/cold intolerances. HEMATOLOGIC: Denies thrombophilia/previous clots, or coagulopathy/bleeding disorders. ONCOLOGIC: Denies personal history of malignancy. DERMATOLOGIC: Denies rashes or pruritus. PSYCHIATRIC: Denies any suicidal or homicidal ideation. Denies hallucinations. PHYSICAL EXAM GENERAL APPEARANCE: The patient is awake, alert, and oriented, in no acute cardiopulmonary distress. NEUROLOGICAL: Cranial nerves II-XII grossly intact. Motor is 5/5 in bilateral upper and lower extremities proximal to distal. No sensory deficits. HEENT: Face is symmetric. Pupils are equal and reactive. Extraocular movements are intact. NECK: Supple. No JVD. No thyromegaly. No submental, submandibular, pre- /postauricular, occipital or supraclavicular lymphadenopathy. CHEST: Normal chest expansion. No Telemetry. LUNGS: Absence of any rales, rhonchi or any wheezing. CARDIOVASCULAR: Regular. S1 and S2 normal. No appreciable rubs, murmurs or gallops. ABDOMEN: Soft, tender, and nondistended. There is no rebound, voluntary guarding, or rigidity. : Deferred. No Carnes. EXTREMITIES: Non-edematous and not cyanotic. No clubbing. Good capillary refill. SKIN: No skin breakdown. Vital Signs (last 8hr) Date Time Temp Pulse Resp B/P (MAP) Pulse Ox O2 Delivery O2 Flow Rate FiO2 07/28/24 11:29 98.2 67 19 124/78 95 Room Air LABS: Laboratory: Test 07/28/24 11:21 07/28/24 09:06 07/26/24 20:50 Range/Units Whole Blood Glucose 107 70-110 MG/DL White Blood Count 5.3 4.8-10.8 K/uL Red Blood Count 4.41 4.00-5.50 MIL/uL Hemoglobin 12.7 12.0-16.0 g/dL Hematocrit 39.8 36-48 % Mean Corpuscular Volume 90.2 79-99 fL Mean Corpuscular Hemoglobin 28.8 27.0-33.0 pg Mean Corpuscular Hemoglobin Concent 31.9 L 32.0-36.0 g/dL Red Cell Distribution Width 13.7 11.0-15.5 % Platelet Count 197 130-400 K/uL Mean Platelet Volume 10.8 H 7.5-10.5 fL Immature Granulocyte % (Auto) 0.2 0-1 % Neutrophils (%) (Auto) 61.9 40.0-77.0 % Lymphocytes (%) (Auto) 27.0 21.0-51.0 % Monocytes (%) (Auto) 4.7 3.0-13.0 % Eosinophils (%) (Auto) 5.8 0.0-8.0 % Basophils (%) (Auto) 0.4 0.0-5.0 % Neutrophils # (Auto) 3.3 1.8-7.7 K/uL Lymphocytes # (Auto) 1.4 1.0-4.8 K/uL Monocytes # (Auto) 0.3 0.1-1.0 K/uL Eosinophils # (Auto) 0.31 0.00-0.70 K/uL Basophils # (Auto) 0.02 0.00-0.20 K/uL Absolute Immature Granulocyte (auto 0.01 0-1 K/uL Nucleated Red Blood Cells 0.0 0.0-0.19 % Sodium Level 142 136-145 mmol/L Potassium Level 4.1 3.5-5.1 mmol/L Chloride Level 107 101-111 mmol/L Carbon Dioxide Level 24 21-32 mmol/L Blood Urea Nitrogen 5 L 7-18 mg/dL Creatinine 1.0 0.5-1.0 mg/dL Glomerular Filtration Rate Calc 71 >90 mL/min Random Glucose 90 70-105 mg/dL Total Calcium 8.8 8.5-10.1 mg/dL Total Bilirubin 0.4 0.2-1.0 mg/dL Aspartate Amino Transf (AST/SGOT) 23 10-37 U/L Alanine Aminotransferase (ALT/SGPT) 26 12-78 U/L Alkaline Phosphatase 163 H 50-136 U/L C-Reactive Protein, Quantitative 6.10 H 0.5-3.0 mg/L Total Protein 7.1 6.0-8.3 g/dL Albumin 3.9 3.5-5.0 g/dL Vancomycin Level Trough 21.5 H 10.0-20.0 UG/ML Current Medications Medications (Trade) Dose Ordered Sig/Sandi Route PRN Reason Start Time Stop Time Status Last Admin Dose Admin Acetaminophen (TYLenol 325MG TAB) 650 mg Q4H PRN PO MILD PAIN (1-3) 07/25/24 07:00 07/25/24 07:10 DC Acetaminophen (TYLenol 325MG TAB) 650 mg Q6H PRN PO MILD PAIN (1-3) 07/25/24 07:00 08/24/24 06:59 Acetaminophen (TYLenol 325MG TAB) 650 mg Q6H PRN PO TEMPERATURE GREATER THAN 101.5 07/25/24 07:00 08/24/24 06:59 Al Hydroxide/Mg Hydroxide (MAALox PLUS 30ML) 30 ml Q6H PRN PO INDIGESTION 07/25/24 07:00 08/24/24 06:59 Alprazolam (XANax 1MG) 2 mg TID PRN PO ANXIETY 07/26/24 15:30 08/02/24 15:29 07/27/24 21:59 2 MG Benzocaine (Cepacol Sore Throat Lozenge) 1 each Q6H6 PRN MM SORE THROAT 07/25/24 18:00 08/24/24 17:59 07/25/24 17:58 1 EACH Ceftriaxone Sodium 2 gm/ Sodium Chloride 100 ml @ 200 mls/hr Q24H IV 07/25/24 07:00 07/25/24 07:13 DC Ceftriaxone Sodium (Rocephin 2gm Inj) 2 gm Q24H IVPB 07/25/24 07:30 07/25/24 11:35 DC 07/25/24 08:39 2 GM Dextrose (D50w) 50 ml AD PRN IV HYPOGLYCEMIA PROTOCOL 07/25/24 07:00 08/24/24 06:59 Diphenhydramine HCl (BENAdryl INJ) 25 mg Q6H PRN IV SEVERE ITCHING/RASH 07/25/24 07:00 08/24/24 06:59 Famotidine (Pepcid 20mg Vial) 20 mg BID IV 07/25/24 09:00 08/24/24 08:59 07/28/24 09:44 20 MG Famotidine (Pepcid 20mg Vial) 20 mg BID PRN IV NAUSEA/VOMITING 07/25/24 07:00 07/25/24 07:10 DC Furosemide (LASix 20MG TAB) 20 mg DAILY PO 07/26/24 09:00 08/25/24 08:59 07/28/24 09:43 20 MG Glucagon (Glucagon 1mg Kit) 1 mg AD PRN IM HYPOGLYCEMIA PROTOCOL 07/25/24 07:00 08/24/24 06:59 Heparin Sodium (Porcine) (HEParin 5,000 UNIT VIAL) 5,000 unit BID SQ 07/25/24 09:00 08/24/24 08:59 07/28/24 09:49 5,000 UNIT Home Med (Home Medication) (Plecanatide (Trulance) 1 TAB) DAILY PO 07/26/24 09:00 08/25/24 08:59 Hydralazine HCl (APRESOLine 20MG INJ) 10 mg Q6H PRN IV For:SBP above 160;DBP above 90 07/25/24 07:00 08/24/24 06:59 Hydromorphone HCl (DiLAUDid 0.5MG INJ) 0.2 mg Q4H PRN IVP SEVERE PAIN (7-10) 07/26/24 16:30 07/31/24 16:29 07/28/24 13:45 0.2 MG Hydroxyzine HCl (ATArax 25MG TAB) 25 mg HS PRN PO SLEEP 07/25/24 09:30 08/24/24 09:29 Insulin Human Regular (humuLIN R 100 UNIT/ML 3ML) INSULIN SLIDING SCAL... ACHS SQ 07/25/24 07:30 08/24/24 07:29 Ketorolac Tromethamine (toRADol) 15 mg Q8H PRN IV MODERATE PAIN (4-6) 07/25/24 07:00 07/30/24 06:59 07/26/24 06:38 15 MG Lactated Ringer's (Lactated Ringers 1000ml) 1,000 ml BOLUS STAT IV 07/25/24 02:38 07/25/24 02:42 DC 07/25/24 03:12 1,000 ML Lactulose (Constulose 20gm/ 30ml Udcup) 20 gm BID PRN PO CONSTIPATION 07/25/24 07:00 08/24/24 06:59 Levetiracetam (kepPRA 500 MG TABLET) 1,000 mg BID PO 07/26/24 21:00 08/25/24 20:59 07/28/24 09:43 1,000 MG Lisinopril (Prinivil 10mg) 10 mg DAILY PO 07/26/24 09:00 08/25/24 08:59 07/26/24 09:10 10 MG Magnesium Sulfate 50 ml @ 0 mls/hr PROTOCOL PRN IV other 07/25/24 07:00 08/24/24 06:59 Morphine Sulfate (morPHINE 2MG SYG) 1 mg Q4H PRN IVP SEVERE PAIN (7-10) IF NPO 07/25/24 07:00 07/26/24 16:27 DC 07/26/24 13:32 1 MG Multivitamins/Iron (Hematinic Plus Tab) 1 tab DAILY PO 07/27/24 09:00 08/26/24 08:59 07/28/24 09:42 1 TAB Ondansetron HCl (zoFRAN 4MG INJ) 4 mg Q6H PRN IV NAUSEA/VOMITING 07/25/24 07:00 08/24/24 06:59 07/28/24 13:18 4 MG Oxycodone/ Acetaminophen (perCOCET) 1 tab Q6H PRN PO SEVERE PAIN (7-10) 07/25/24 07:00 07/25/24 09:24 DC Piperacillin Sod/ Tazobactam Sod (Zosyn 3.375gm+NS 50ml) 3.375 gm ZOSY8 IV 07/25/24 21:00 08/04/24 20:59 07/28/24 13:18 3.375 GM Potassium Chloride 100 ml @ 100 mls/hr AD PRN IV POTASSIUM PROTOCOL 07/25/24 07:00 07/25/24 06:59 DC Potassium Chloride 100 ml @ 100 mls/hr AD PRN IV POTASSIUM PROTOCOL 07/25/24 07:00 08/24/24 06:59 Potassium Chloride (K-Dur/Klor-Con 20meq) 10 meq AD PRN PO POTASSIUM PROTOCOL 07/25/24 07:00 07/25/24 06:59 DC Potassium Chloride (K-Dur/Klor-Con 20meq) 20 meq AD PRN PO POTASSIUM PROTOCOL 07/25/24 07:00 08/24/24 06:59 Potassium Chloride (KCl 10% Elixir 20meq/15ml) 10 meq AD PRN PO POTASSIUM PROTOCOL 07/25/24 07:00 07/25/24 06:59 DC Potassium Chloride (KCl 10% Elixir 20meq/15ml) 20 meq AD PRN PO POTASSIUM PROTOCOL 07/25/24 07:00 08/24/24 06:59 Sennosides (Senna) 1 tab DAILY PRN PO CONSTIPATION 07/26/24 15:00 08/25/24 14:59 Sodium Chloride 1,000 ml @ 75 mls/hr [id number] IV 07/25/24 07:00 08/24/24 06:59 07/27/24 11:33 75 MLS/HR Vancomycin HCl 250 ml @ 125 mls/hr ONCE IV 07/25/24 18:00 07/25/24 21:00 DC 07/25/24 17:58 125 MLS/HR Vancomycin HCl 250 ml @ 125 mls/hr Q12H IV 07/25/24 21:00 07/25/24 11:35 DC Vancomycin HCl 250 ml @ 125 mls/hr Q12H9 IV 07/26/24 09:00 07/26/24 21:57 DC 07/26/24 09:09 125 MLS/HR Vancomycin HCl (Vancomycin 750mg) 750 mg BID IVPB 07/27/24 09:00 08/06/24 08:59 07/28/24 09:50 750 MG Vancomycin HCl (Vancomycin Protocol) 1 each AD IV 07/25/24 17:30 08/08/24 17:29 Vancomycin HCl (Vancomycin Protocol) 1 each PROTOCOL PRN IV VANCOMYCIN PROTOCOL 07/25/24 07:00 07/25/24 11:35 DC Zolpidem Tartrate (AmbIEN) 5 mg HS PRN PO INSOMNIA 07/25/24 07:00 08/24/24 06:59 07/27/24 21:59 5 MG DIAGNOSTICS / RADIOLOGY: [ ] ASSESSMENT: Severe abdominal pain secondary to UTI POA Intractable nausea and vomiting possibly due to above POA Body fluid culture growing Enterococcus faecalis 07/21/2024 POA ReCurrent acute complicated cystitis infection POA Abdominal fluid collection per CT abdomen/pelvis POA Gastroparesis POA Seizures POA Uncontrolled hypertension POA Depression POA Electrolyte imbalance hypokalemia 3.1 POA Neurogenic bladder dysfunction POA Chronic problem: 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 Fall Precautions. Well lighted room through the day and minimize interruptions through the night to prevent acute delirium. PULMONARY: Chest x-ray pending Supplemental 02 as needed BiPAP as necessary, for respiratory distress Titrate Fio2 to keep Spo2 > or = 90% DuoNebs and CPT as needed IS hourly while awake for pulmonary hygiene Out of bed to chair as tolerated VAP Bundle Maintain aspiration precautions at all times CARDIOVASCULAR: Follow hemodynamics. Vital signs per facility protocol GI & NUTRITION: CT abdomen/pelvis pending Continue nutritional support Aspirations precautions Prokinetic agents and laxatives as needed KIDNEYS & ELECTROLYTES: Normal saline at 75 mL/hour Strict monitoring of intake and output Daily weights Avoid nephrotoxic agents Monitor electrolytes and replace as needed Goal urine output of 30mL/hr or 0.5mL/kg/hr Medications to be dosed according to renal function. Avoid contrast if possible ENDOCRINE: Maintain blood glucose between 100-180 at all times. Insulin sliding scale for blood glucose management Hypoglycemia and hyperglycemia protocol in place INFECTIOUS DISEASE: Trend temperature, WBC and procalcitonin level Follow cultures, deescalate antibiotics as soon as possible. Panculture if new onset fever HEMATOLOGY & COAGULATION: Monitor H&H. Keep Hgb > 7 Transfuse 1 unit of PRBC for Hgb < 7 Transfuse 1 pack of platelets of platelets < 20, 000 Watch for any signs and symptoms of bleeding SKIN: Pressure ulcer prevention per facility protocol Specialty mattress as needed Treatment plan discussed with patient and family at the bedside Medications to be reconciled once obtained by patient and/or family and available to be reconciled in computer p.r.n. medication for pain nausea and vomiting Questions were answered We will continue to monitor the patient closely St[employer] Drawer In for disposition Rehab: PT/OT GI: PPI DVT: SCD's Code Status: Full Resuscitation Disposition: TBD Prognosis: Guarded] ATTESTATION BY PHYSICIAN I have seen and examined the patient. I reviewed the documentation, medical decision making, and treatment plan as noted by the resident provider above. I agree with the findings and plan of care. Dash Perez MD, ANCHU A MD July 28, 2024 16:00
[2024-07-28] MEDS ORDERED: PHARMACY COMMUNICATION MISC SCH (16:30)
[2024-07-28] MEDS ORDERED: COMPOUND IV MISC 1 EACH IVSOLN MISC PRN (17:00)
[2024-07-28] MEDS: TIGECYCLINE 50 MG in 0.9%NACL 100ML 100 ML IV SCH (18:42)
[2024-07-28] MEDS: TIGECYCLINE 100 MG in 0.9%NACL 100ML 100 ML IV ONE (18:43)
--- NOTE | 2024-07-28 22:39 | PN ---
INFECTIOUS DISEASE PROGRESS NOTE Date of Service: July 28, 2024 SUBJECTIVE: This is a 43-year-old female patient who was seen and examined at bedside in room 308. Patient is awake, alert and oriented x3. Patient is still voicing some abdominal pain. No fever, temperature 98.2. The final urine urine culture results came back positive with multidrug resistant organism, Klebsiella pneumoniae. We will discontinue vancomycin and Zosyn IV and start patient on tigecycline 100 mg IV x1 dose then 50 mg IV every 12 hours. Will follow patient's care. PHYSICAL EXAM EYES: Anicteric. Pupils equal and reactive. HENT: No oral thrush seen, moist Oral mucosa. NECK: Supple, no JVD or thyromegaly. LUNGS: Good air entry. No rales, no rhonchi. CARDIOVASCULAR: S1, S2 regular. No murmur heard. ABDOMEN: Soft, non tender, bowel sounds present, no organomegaly. Abdominal pain POA. CENTRAL NERVOUS SYSTEM: Awake, alert, oriented x 3. SKIN: No rashes, no swelling. LYMPHATICS: No peripheral lymphadenopathy. MUSCULOSKELETAL: No joint swelling, erythema or tenderness. EXTREMITIES: No cyanosis or clubbing. BACK: No deformity, no pressure ulcer. GENITOURINARY: No dysuria or hematuria. Vital Sign (Last 12 Hours) 07/28/24 07/28/24 07/28/24 11:29 16:00 20:47 Temp 98.2 98.2 98.4 Pulse 67 67 74 Resp 19 19 19 B/P (MAP) 124/78 158/86 130/88 Pulse Ox 95 100 97 O2 Delivery Room Air Room Air Room Air Intake & Output (last 24hrs) 07/27/24 07/27/24 07/28/24 14:59 22:59 06:59 Intake Total 720 ml 480 ml Balance 720 ml 480 ml LABS: Laboratory: Test 07/28/24 20:19 07/28/24 19:08 07/28/24 09:06 Range/Units Vancomycin Level Trough 20.6 H 10.0-20.0 UG/ML Whole Blood Glucose 129 H 70-110 MG/DL White Blood Count 5.3 4.8-10.8 K/uL Red Blood Count 4.41 4.00-5.50 MIL/uL Hemoglobin 12.7 12.0-16.0 g/dL Hematocrit 39.8 36-48 % Mean Corpuscular Volume 90.2 79-99 fL Mean Corpuscular Hemoglobin 28.8 27.0-33.0 pg Mean Corpuscular Hemoglobin Concent 31.9 L 32.0-36.0 g/dL Red Cell Distribution Width 13.7 11.0-15.5 % Platelet Count 197 130-400 K/uL Mean Platelet Volume 10.8 H 7.5-10.5 fL Immature Granulocyte % (Auto) 0.2 0-1 % Neutrophils (%) (Auto) 61.9 40.0-77.0 % Lymphocytes (%) (Auto) 27.0 21.0-51.0 % Monocytes (%) (Auto) 4.7 3.0-13.0 % Eosinophils (%) (Auto) 5.8 0.0-8.0 % Basophils (%) (Auto) 0.4 0.0-5.0 % Neutrophils # (Auto) 3.3 1.8-7.7 K/uL Lymphocytes # (Auto) 1.4 1.0-4.8 K/uL Monocytes # (Auto) 0.3 0.1-1.0 K/uL Eosinophils # (Auto) 0.31 0.00-0.70 K/uL Basophils # (Auto) 0.02 0.00-0.20 K/uL Absolute Immature Granulocyte (auto 0.01 0-1 K/uL Nucleated Red Blood Cells 0.0 0.0-0.19 % Sodium Level 142 136-145 mmol/L Potassium Level 4.1 3.5-5.1 mmol/L Chloride Level 107 101-111 mmol/L Carbon Dioxide Level 24 21-32 mmol/L Blood Urea Nitrogen 5 L 7-18 mg/dL Creatinine 1.0 0.5-1.0 mg/dL Glomerular Filtration Rate Calc 71 >90 mL/min Random Glucose 90 70-105 mg/dL Total Calcium 8.8 8.5-10.1 mg/dL Total Bilirubin 0.4 0.2-1.0 mg/dL Aspartate Amino Transf (AST/SGOT) 23 10-37 U/L Alanine Aminotransferase (ALT/SGPT) 26 12-78 U/L Alkaline Phosphatase 163 H 50-136 U/L C-Reactive Protein, Quantitative 6.10 H 0.5-3.0 mg/L Total Protein 7.1 6.0-8.3 g/dL Albumin 3.9 3.5-5.0 g/dL DIAGNOSTICS / RADIOLOGY: PATIENT: OVIDIO DORSEY ACCT: [id number] LOC: [facility] U: [id number] AGE/SX: 43/F ROOM: [facility] RE07/24/[address]: ESTEFANI MENSAH MD : 1980 BED: 1 DIS: STATUS: ADM IN TLOC: SPEC: [id number] LEIGHA: 07/25/24 STATUS: COMP REQ: [id number] RECD: 07/26/[address] [facility] [address]: THEODORE RODRIGUEZ APRN SOURCE: [facility] ENTR: 07/26/[address]: EDDIE SINCLAIR MD [facility], MD, FRANK MD ORDERED: AERO ID & SENS Procedure Result Sukhi Date-Time AEROBIC ID & SENSITIVITIES Final 07/28/24-0801 [facility] 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 CRITICAL RESULT WAS CALLED BY VERO BEAULIEU ON 07/28/24 AT 0756. CRITCAL VALUES WERE READ BACK AND ACKNOWLEDGED BY ENEDINA HAYNES ( [facility] ) COLONY DESCRIPTION: DAY 1: COLONY COUNT: >100,000 CFU/ML GRAM NEGATIVE RODS IDENTIFICATION AND SENSITIVITY TO FOLLOW DAY 2: SLOW-GROWER; RESULTS PENDING COMMENTS(R): CRE COMMENTS(R): CONFIRMED BY ALTERNATE METHOD KLEBSIELLA PNEUMONIAE K PNEUMO M.I.C. RX --------- ---- AZTREONAM >16 R CEFAZOLIN >16 R CEFTAZIDIME/AVIBACTAM <=8 S CEFTRIAXONE >2 R CIPROFLOXACIN >2 R GENTAMICIN <=2 S LEVOFLOXACIN >4 R NITROFURANTOIN >64 R TETRACYCLINE <=4 S MEROPENEM >8 R PIPERACILLIN/TAZOBACTAM >64 R TRIMETHOPRIM/SUFLAMETHOXAZOLE >2/38 R ASSESSMENT: Urinary tract infection with Klebsiella pneumoniae. Intra-abdominal fluid infection with Enterococcus faecalis. Infection with multidrug resistant organism. Abdominal pain. History of neurogenic bladder. History of chronic pancreatitis. PLAN: Discontinue vancomycin. Discontinue Zosyn IV. Start tigecycline 100 mg IV x1 dose then 50 mg IV every 12 hours. Continue pain management. Continue GI prophylaxis. We will monitor electrolytes. This case was reviewed and discussed with my supervising physician and the above assessment and plan was formulated and agreed upon. ATTESTATION BY PHYSICIAN I have seen and examined the patient. I reviewed the documentation, medical decision making, and treatment plan as noted by the mid-level provider above. I agree with the findings and plan of care. EDDIE SINCLAIR MD, MIRTA L [facility] July 28, 2024 22:39
[2024-07-29 04:23] VITALS: BP 109/72; PULSE 72; RESP 17; TEMP 98.3
[2024-07-29 07:06] LABS: HEMATOCRIT 35.1 % (36-48); MEAN CORPUSCULAR HEMOGLOBIN 28.6 pg (27.0-33.0); MEAN CORPUSCULAR HGB CONC 31.6 g/dL (32.0-36.0); MEAN CORPUSCULAR VOLUME 90.5 fL (79-99); RED BLOOD CELL COUNT(AUTO) 3.88 MIL/uL (4.00-5.50); RED CELL DISTRIBUTION WIDTH 13.7 % (11.0-15.5)
[2024-07-29 07:16] LABS: CREATININE 0.9 mg/dL (0.5-1.0); POTASSIUM 3.3 mmol/L (3.5-5.1)
[2024-07-29 07:44] VITALS: BP 137/79; PULSE 72; RESP 16; TEMP 98.2
[2024-07-29 09:30] VITALS: O2SAT 95
--- NOTE | 2024-07-29 09:35 | NUR ---
MEDICATION HELD AM LASIX HELD DUE TO LOW POTASSIUM LEVEL OF 3.4.
[2024-07-29] MEDS: PoTASSium chloRIDE 20MEQ ER 20 MEQ ERTAB PO PRN (10:04)
[2024-07-29 11:56] VITALS: BP 142/96; PULSE 63; RESP 19; TEMP 98.4
--- NOTE | 2024-07-29 12:08 | PN ---
[facility] PROGRESS NOTE Date of Service: July 29, 2024 Time of Service: 12:07 SUBJECTIVE: 43 years old female with a past medical history of spina bifida, anxiety, neurogenic bladder status post bladder reconstruction, chronic pancreatitis, gastroparesis, seizures, depression, TUBE CARRIER shunt, recent admission on 07/21/2024 and discharged on 07/16/2024 for UTI growing Klebsiella pneumoniae on culture and fluid pockets in the abdomen-body fluids growing Enterococcus faecalis, who came to emergency department with a complaint of intractable nausea and vomiting for the past two days and severe abdominal pain. At the time of presentation vital signs -temperature 98.6 pulse 76 respiration 18 blood pressure 123/84. Patient is on room air satting 100%. WBC 6.3 hemoglobin 12.7 hematocrit 40.3 platelets 325. UA negative. Sodium 138 potassium 3.1 CO2 23 BUN 23 creatinine six GFR one glucose 105 total calcium 8.8 bilirubin 0.4 AST 86 ALT [address] abdomen/pelvis is showing small amount of fluid in the pelvis . Chest x-ray remarkable at the time of admission. Patient will be admitted under hospitalist care for further evaluation/recommendation. 07/26/24 Patient was seen and examined. Case discussed with the RN She complains abdominal pain on broad-spectrum IV antibiotics for a UTI. 07/27/24 patient seen and examined. Case discussed with the RN. Her abdominal pain has improved. She is on broad-spectrum IV antibiotics for UTI. Sensitivities are await 07/28/24: Patient with complaints of vomiting. Culture growing Klebsiella pneumoniae resistant to Zosyn this time. Infectious Disease recommendations appreciated. Surgery recommended no active intervention this time. Pending disposition plans for possible long-term IV antibiotics. 07/29/2024: Patient is seen in room. No further episodes of vomiting reported, however she states that she is nauseous and is requesting Phenergan rather than Zofran. She was started on tetracycline yesterday for resistant Klebsiella UTI. Pending discharge recommendations from Infectious Disease. REVIEW OF SYSTEMS CONSTITUTIONAL: Denies fevers, chills, or night sweats. No unintentional weight loss reported. NEUROLOGICAL: Denies headache, amaurosis fugax, motor weakness, sensory deficit, vertigo/spinning sensation, gait abnormalities, or tremors. ENT: No hearing loss, otalgia, otorrhea, rhinitis, rhinorrhea, hoarseness, or sore throat. CARDIOVASCULAR: Denies any exertional angina, dyspnea on exertion, orthopnea, paroxysmal nocturnal dyspnea, palpitations, life-threatening arrhythmias, claudication. PULMONARY: Denies any shortness of breath, cough, phlegm/sputum, hemoptysis, pleuritic chest pain. SLEEP: Denies morning headaches, daytime somnolence or napping. Denies difficulty falling asleep, staying asleep, waking from sleep. Denies knowledge of snoring. GASTROINTESTINAL: Denies any type of dysphagia to either liquids or solids. Denies pyrosis, early satiety, diarrhea, constipation, or changes in stool consistency or caliber. Denies coffee-ground emesis, hematemesis, hematochezia, or melanotic stools. Intractable nausea and vomiting. Severe abdominal pain GENITOURINARY: Denies frequency, urgency, nocturia, hematuria or incontinence (Storage/Irritative symptoms.) Low urinary stream, straining to void, urinary intermittency or hesitancy, splitting of the voiding stream, terminal dribbling. ENDOCRINOLOGIC: Denies polyuria, polydipsia, polyphagia or heat/cold intolerances. HEMATOLOGIC: Denies thrombophilia/previous clots, or coagulopathy/bleeding diso rders. ONCOLOGIC: Denies personal history of malignancy. DERMATOLOGIC: Denies rashes or pruritus. PSYCHIATRIC: Denies any suicidal or homicidal ideation. Denies hallucinations. PHYSICAL EXAM GENERAL APPEARANCE: The patient is awake, alert, and oriented, in no acute cardiopulmonary distress. NEUROLOGICAL: Cranial nerves II-XII grossly intact. Motor is 5/5 in bilateral upper and lower extremities proximal to distal. No sensory deficits. HEENT: Face is symmetric. Pupils are equal and reactive. Extraocular movements are intact. NECK: Supple. No JVD. No thyromegaly. No submental, submandibular, pre- /postauricular, occipital or supraclavicular lymphadenopathy. CHEST: Normal chest expansion. No Telemetry. LUNGS: Absence of any rales, rhonchi or any wheezing. CARDIOVASCULAR: Regular. S1 and S2 normal. No appreciable rubs, murmurs or gallops. ABDOMEN: Soft, tender, and nondistended. There is no rebound, voluntary guarding, or rigidity. : Deferred. No Carnes. EXTREMITIES: Non-edematous and not cyanotic. No clubbing. Good capillary refill. SKIN: No skin breakdown. Vital Signs (last 8hr) Date Time Temp Pulse Resp B/P (MAP) Pulse Ox O2 Delivery O2 Flow Rate FiO2 07/29/24 11:56 98.4 63 19 142/96 95 Room Air 07/29/24 07:44 98.2 72 16 137/79 95 Room Air 07/29/24 04:23 98.2 72 17 109/72 98 Room Air LABS: Laboratory: Test 07/29/24 11:00 07/29/24 06:55 07/28/24 20:19 07/28/24 09:06 Range/Units Whole Blood Glucose 96 70-110 MG/DL White Blood Count 6.0 4.8-10.8 K/uL Red Blood Count 3.88 L 4.00-5.50 MIL/uL Hemoglobin 11.1 L 12.0-16.0 g/dL Hematocrit 35.1 L 36-48 % Mean Corpuscular Volume 90.5 79-99 fL Mean Corpuscular Hemoglobin 28.6 27.0-33.0 pg Mean Corpuscular Hemoglobin Concent 31.6 L 32.0-36.0 g/dL Red Cell Distribution Width 13.7 11.0-15.5 % Platelet Count 198 130-400 K/uL Mean Platelet Volume 10.4 7.5-10.5 fL Nucleated Red Blood Cells 0.0 0.0-0.19 % Sodium Level 140 136-145 mmol/L Potassium Level 3.3 L 3.5-5.1 mmol/L Chloride Level 105 101-111 mmol/L Carbon Dioxide Level 26 21-32 mmol/L Blood Urea Nitrogen 7 7-18 mg/dL Creatinine 0.9 0.5-1.0 mg/dL Glomerular Filtration Rate Calc 81 >90 mL/min Random Glucose 87 70-105 mg/dL Total Calcium 8.2 L 8.5-10.1 mg/dL Vancomycin Level Trough 20.6 H 10.0-20.0 UG/ML Immature Granulocyte % (Auto) 0.2 0-1 % Neutrophils (%) (Auto) 61.9 40.0-77.0 % Lymphocytes (%) (Auto) 27.0 21.0-51.0 % Monocytes (%) (Auto) 4.7 3.0-13.0 % Eosinophils (%) (Auto) 5.8 0.0-8.0 % Basophils (%) (Auto) 0.4 0.0-5.0 % Neutrophils # (Auto) 3.3 1.8-7.7 K/uL Lymphocytes # (Auto) 1.4 1.0-4.8 K/uL Monocytes # (Auto) 0.3 0.1-1.0 K/uL Eosinophils # (Auto) 0.31 0.00-0.70 K/uL Basophils # (Auto) 0.02 0.00-0.20 K/uL Absolute Immature Granulocyte (auto 0.01 0-1 K/uL Total Bilirubin 0.4 0.2-1.0 mg/dL Aspartate Amino Transf (AST/SGOT) 23 10-37 U/L Alanine Aminotransferase (ALT/SGPT) 26 12-78 U/L Alkaline Phosphatase 163 H 50-136 U/L C-Reactive Protein, Quantitative 6.10 H 0.5-3.0 mg/L Total Protein 7.1 6.0-8.3 g/dL Albumin 3.9 3.5-5.0 g/dL Current Medications Medications (Trade) Dose Ordered Sig/Sandi Route PRN Reason Start Time Stop Time Status Last Admin Dose Admin Acetaminophen (TYLenol 325MG TAB) 650 mg Q4H PRN PO MILD PAIN (1-3) 07/25/24 07:00 07/25/24 07:10 DC Acetaminophen (TYLenol 325MG TAB) 650 mg Q6H PRN PO MILD PAIN (1-3) 07/25/24 07:00 08/24/24 06:59 Acetaminophen (TYLenol 325MG TAB) 650 mg Q6H PRN PO TEMPERATURE GREATER THAN 101.5 07/25/24 07:00 08/24/24 06:59 Al Hydroxide/Mg Hydroxide (MAALox PLUS 30ML) 30 ml Q6H PRN PO INDIGESTION 07/25/24 07:00 08/24/24 06:59 Alprazolam (XANax 1MG) 2 mg TID PRN PO ANXIETY 07/26/24 15:30 08/02/24 15:29 07/28/24 21:25 2 MG Benzocaine (Cepacol Sore Throat Lozenge) 1 each Q6H6 PRN MM SORE THROAT 07/25/24 18:00 08/24/24 17:59 07/25/24 17:58 1 EACH Ceftriaxone Sodium 2 gm/ Sodium Chloride 100 ml @ 200 mls/hr Q24H IV 07/25/24 07:00 07/25/24 07:13 DC Ceftriaxone Sodium (Rocephin 2gm Inj) 2 gm Q24H IVPB 07/25/24 07:30 07/25/24 11:35 DC 07/25/24 08:39 2 GM Dextrose (D50w) 50 ml AD PRN IV HYPOGLYCEMIA PROTOCOL 07/25/24 07:00 08/24/24 06:59 Diphenhydramine HCl (BENAdryl INJ) 25 mg Q6H PRN IV SEVERE ITCHING/RASH 07/25/24 07:00 08/24/24 06:59 Famotidine (Pepcid 20mg Vial) 20 mg BID IV 07/25/24 09:00 08/24/24 08:59 07/29/24 09:23 20 MG Famotidine (Pepcid 20mg Vial) 20 mg BID PRN IV NAUSEA/VOMITING 07/25/24 07:00 07/25/24 07:10 DC Furosemide (LASix 20MG TAB) 20 mg DAILY PO 07/26/24 09:00 08/25/24 08:59 07/28/24 09:43 20 MG Glucagon (Glucagon 1mg Kit) 1 mg AD PRN IM HYPOGLYCEMIA PROTOCOL 07/25/24 07:00 08/24/24 06:59 Heparin Sodium (Porcine) (HEParin 5,000 UNIT VIAL) 5,000 unit BID SQ 07/25/24 09:00 08/24/24 08:59 07/29/24 09:33 5,000 UNIT Home Med (Home Medication) (Plecanatide (Trulance) 1 TAB) DAILY PO 07/26/24 09:00 08/25/24 08:59 Hydralazine HCl (APRESOLine 20MG INJ) 10 mg Q6H PRN IV For:SBP above 160;DBP above 90 07/25/24 07:00 08/24/24 06:59 Hydromorphone HCl (DiLAUDid 0.5MG INJ) 0.2 mg Q4H PRN IVP SEVERE PAIN (7-10) 07/26/24 16:30 07/31/24 16:29 07/29/24 09:25 0.2 MG Hydroxyzine HCl (ATArax 25MG TAB) 25 mg HS PRN PO SLEEP 07/25/24 09:30 08/24/24 09:29 Insulin Human Regular (humuLIN R 100 UNIT/ML 3ML) INSULIN SLIDING SCAL... ACHS SQ 07/25/24 07:30 08/24/24 07:29 Ketorolac Tromethamine (toRADol) 15 mg Q8H PRN IV MODERATE PAIN (4-6) 07/25/24 07:00 07/30/24 06:59 07/26/24 06:38 15 MG Lactated Ringer's (Lactated Ringers 1000ml) 1,000 ml BOLUS STAT IV 07/25/24 02:38 07/25/24 02:42 DC 07/25/24 03:12 1,000 ML Lactulose (Constulose 20gm/ 30ml Udcup) 20 gm BID PRN PO CONSTIPATION 07/25/24 07:00 08/24/24 06:59 Levetiracetam (kepPRA 500 MG TABLET) 1,000 mg BID PO 07/26/24 21:00 08/25/24 20:59 07/29/24 09:23 1,000 MG Lisinopril (Prinivil 10mg) 10 mg DAILY PO 07/26/24 09:00 08/25/24 08:59 07/29/24 09:23 10 MG Magnesium Sulfate 50 ml @ 0 mls/hr PROTOCOL PRN IV other 07/25/24 07:00 08/24/24 06:59 Morphine Sulfate (morPHINE 2MG SYG) 1 mg Q4H PRN IVP SEVERE PAIN (7-10) IF NPO 07/25/24 07:00 07/26/24 16:27 DC 07/26/24 13:32 1 MG Multivitamins/Iron (Hematinic Plus Tab) 1 tab DAILY PO 07/27/24 09:00 08/26/24 08:59 07/29/24 09:23 1 TAB Ondansetron HCl (zoFRAN 4MG INJ) 4 mg Q6H PRN IV NAUSEA/VOMITING 07/25/24 07:00 08/24/24 06:59 07/29/24 03:12 4 MG Oxycodone/ Acetaminophen (perCOCET) 1 tab Q6H PRN PO SEVERE PAIN (7-10) 07/25/24 07:00 07/25/24 09:24 DC Pharmacy Profile Note (Pharmacy Communication) 1 each ONCE MISC 07/28/24 16:30 07/28/24 16:33 DC Piperacillin Sod/ Tazobactam Sod (Zosyn 3.375gm+NS 50ml) 3.375 gm ZOSY8 IV 07/25/24 21:00 07/28/24 16:19 DC 07/28/24 13:18 3.375 GM Potassium Chloride 100 ml @ 100 mls/hr AD PRN IV POTASSIUM PROTOCOL 07/25/24 07:00 07/25/24 06:59 DC Potassium Chloride 100 ml @ 100 mls/hr AD PRN IV POTASSIUM PROTOCOL 07/25/24 07:00 08/24/24 06:59 Potassium Chloride (K-Dur/Klor-Con 20meq) 10 meq AD PRN PO POTASSIUM PROTOCOL 07/25/24 07:00 07/25/24 06:59 DC Potassium Chloride (K-Dur/Klor-Con 20meq) 20 meq AD PRN PO POTASSIUM PROTOCOL 07/25/24 07:00 08/24/24 06:59 07/29/24 10:04 20 MEQ Potassium Chloride (KCl 10% Elixir 20meq/15ml) 10 meq AD PRN PO POTASSIUM PROTOCOL 07/25/24 07:00 07/25/24 06:59 DC Potassium Chloride (KCl 10% Elixir 20meq/15ml) 20 meq AD PRN PO POTASSIUM PROTOCOL 07/25/24 07:00 08/24/24 06:59 Sennosides (Senna) 1 tab DAILY PRN PO CONSTIPATION 07/26/24 15:00 08/25/24 14:59 Sodium Chloride 1,000 ml @ 75 mls/hr [id number] IV 07/25/24 07:00 08/24/24 06:59 07/27/24 11:33 75 MLS/HR Tigecycline 50 mg/ Sodium Chloride 100 ml @ 100 mls/hr Q12H IV 07/29/24 05:30 07/29/24 10:44 DC 07/28/24 18:42 100 MLS/HR Tigecycline 50 mg/ Sodium Chloride 100 ml @ 100 mls/hr Q12H IV 07/29/24 11:00 08/05/24 10:59 Vancomycin HCl 250 ml @ 125 mls/hr ONCE IV 07/25/24 18:00 07/25/24 21:00 DC 07/25/24 17:58 125 MLS/HR Vancomycin HCl 250 ml @ 125 mls/hr Q12H IV 07/25/24 21:00 07/25/24 11:35 DC Vancomycin HCl 250 ml @ 125 mls/hr Q12H9 IV 07/26/24 09:00 07/26/24 21:57 DC 07/26/24 09:09 125 MLS/HR Vancomycin HCl (Vancomycin 750mg) 750 mg BID IVPB 07/27/24 09:00 07/28/24 16:19 DC 07/28/24 09:50 750 MG Vancomycin HCl (Vancomycin Protocol) 1 each AD IV 07/25/24 17:30 07/28/24 16:19 DC Vancomycin HCl (Vancomycin Protocol) 1 each PROTOCOL PRN IV VANCOMYCIN PROTOCOL 07/25/24 07:00 07/25/24 11:35 DC Zolpidem Tartrate (AmbIEN) 5 mg HS PRN PO INSOMNIA 07/25/24 07:00 08/24/24 06:59 07/28/24 21:25 5 MG DIAGNOSTICS / RADIOLOGY: [ ] ASSESSMENT: Severe abdominal pain secondary to UTI POA Intractable nausea and vomiting possibly due to above POA Body fluid culture growing Enterococcus faecalis 07/21/2024 POA ReCurrent acute complicated cystitis infection POA Abdominal fluid collection per CT abdomen/pelvis POA Gastroparesis POA Seizures POA Uncontrolled hypertension POA Depression POA Electrolyte imbalance hypokalemia 3.1 POA Neurogenic bladder dysfunction POA Chronic problem: TUBE CARRIER shunt POA Spinal bifida POA Anxiety POA Chronic pancreatitis POA History of G-tube placement History of small bowel resection History of AV shunt placement History of colostomy placement and closure History of cholecystectomy History of appendectomy ] PLAN: Admitted to: Medical-surgical floor with telemetry Consults: ID, surgeon, IR Antibiotics: Ceftriaxone, vanco Tests: Chest x-ray, CT abdomen/pelvis NEURO: Minimize central acting medications as possible. Fall Precautions. Well lighted room through the day and minimize interruptions through the night to prevent acute delirium. PULMONARY: Chest x-ray pending Supplemental 02 as needed BiPAP as necessary, for respiratory distress Titrate Fio2 to keep Spo2 > or = 90% DuoNebs and CPT as needed IS hourly while awake for pulmonary hygiene Out of bed to chair as tolerated VAP Bundle Maintain aspiration precautions at all times CARDIOVASCULAR: Follow hemodynamics. Vital signs per facility protocol GI & NUTRITION: CT abdomen/pelvis pending Continue nutritional support Aspirations precautions Prokinetic agents and laxatives as needed KIDNEYS & ELECTROLYTES: Normal saline at 75 mL/hour Strict monitoring of intake and output Daily weights Avoid nephrotoxic agents Monitor electrolytes and replace as needed Goal urine output of 30mL/hr or 0.5mL/kg/hr Medications to be dosed according to renal function. Avoid contrast if possible ENDOCRINE: Maintain blood glucose between 100-180 at all times. Insulin sliding scale for blood glucose management Hypoglycemia and hyperglycemia protocol in place INFECTIOUS DISEASE: Trend temperature, WBC and procalcitonin level Follow cultures, deescalate antibiotics as soon as possible. Panculture if new onset fever HEMATOLOGY & COAGULATION: Monitor H&H. Keep Hgb > 7 Transfuse 1 unit of PRBC for Hgb < 7 Transfuse 1 pack of platelets of platelets < 20, 000 Watch for any signs and symptoms of bleeding SKIN: Pressure ulcer prevention per facility protocol Specialty mattress as needed Treatment plan discussed with patient and family at the bedside Medications to be reconciled once obtained by patient and/or family and available to be reconciled in computer p.r.n. medication for pain nausea and vomiting Questions were answered We will continue to monitor the patient closely [employer] for disposition Rehab: PT/OT GI: PPI DVT: SCD's Code Status: Full Resuscitation Disposition: TBD Prognosis: Guarded] ATTESTATION BY PHYSICIAN I have seen and examined the patient. I reviewed the documentation, medical decision making, and treatment plan as noted by the resident provider above. I agree with the findings and plan of care. Dash Perez MD, ANCHU A MD July 29, 2024 12:08
[2024-07-29] MEDS: TIGECYCLINE 50 MG in 0.9%NACL 100ML 100 ML IV SCH (12:12)
--- NOTE | 2024-07-29 13:44 | DS ---
Discharge Summary Hospital Course Summary: 43 years old female with a past medical history of spina bifida, anxiety, neurogenic bladder status post bladder reconstruction, chronic pancreatitis, gastroparesis, seizures, depression, CARPET RENOVATOR shunt, recent admission on 07/16/2024 and discharged on 07/21/2024 for Klebsiella pneumoniae UTI (and fluid pockets in the abdomen-body fluids growing Enterococcus faecalis) came to emergency department with intractable nausea and vomiting for the past two days and severe abdominal pain. At the time of presentation vital signs -temperature 98.6 pulse 76 respiration 18 blood pressure 123/84. Patient is on room air satting 100%. WBC 6.3 hemoglobin 12.7 hematocrit 40.3 platelets 325. UA negative. Sodium 138 potassium 3.1 CO2 23 BUN 23 creatinine six GFR one glucose 105 total calcium 8.8 bilirubin 0.4 AST 86 ALT [address] abdomen/pelvis is showing small amount of fluid in the pelvis . Chest x-ray unremarkable at the time of admission. Patient was admitted under hospitalist care for further evaluation. While at the hospital, Patient complained of vomiting and nausea. Urine Culture grew Klebsiella pneumoniae resistant to Zosyn . Surgery recommended no active intervention this time. She received 100 mg tigecycline and was subsequently started on doxycycline as per Infectious Disease recommendations. Her condition gradually improved. She was stable at the time of discharge. She is required to continue doxycycline for 10 days. Image Assembler(s): CONSULT NOTE: Consulting physician:Dr Mensah Consulting service: General surgery Reason for consultation: Abdominal fluid collection History of present illness: This is a 43-year-old female with a medical history loaded below that has been consulted to surgery after presenting back to the hospital for concerns of abdominal pain. Patient recently seen were Interventional Radiology attempted to drain fluids within abdomen. Again fluid within abdomen noted but small in volume. Patient with a episodes of nausea and vomiting reported WBCs however unremarkable. No significant abdominal pain reported. Patient otherwise stable Medical history: Anxiety, neurogenic bladder, spinal bifida, chronic pancreatitis, gastroparesis, seizures, depression, BP shunt, recent UTI positive for Klebsiella pneumoniae, recent fluid collection in the abdomen positive for Enterococcus faecalis PAST SURGICAL HISTORY: J-tube placement, small bowel resection, av shunt placement, colostomy placement and closure, cholecystectomy, appendectomy PAST SOCIAL HISTORY: Patient denies any alcohol use, patient denies well. Patient denies drug illicit FAMILY HISTORY: Patient lives at home with a roommate Coded Allergies: No Known Drug Allergies (Verified Allergy, Unknown, 07/12/20) Review of systems: General: No Fever, No Chills, No Night Sweats, No Fatigue, No Malaise, No Appetite, No Other HEENT: No Head Aches, No Visual Changes, No Eye Pain, No Ear Pain, No Dysphasia, No Sinus Congestion, No Post Nasal Drip, No Sore Throat, No Other Pulmonary: No Dyspnea, No Cough, No Pleuritic Chest Pain, No Other Cardiovascular: No: Chest Pain, Palpitations, Orthopnea, Paroxysmal No Dyspnea, Edema, Lt Headedness, Other Gastrointestinal: No: Nausea, Vomiting, Diarrhea, Constipation, Melena, Hematochezia, Other Genitourinary: No Dysuria, No Frequency, No Incontinence, No Hematuria, No Retention, No Other Musculoskeletal: No: other, neck pain, shoulder pain, arm pain, back pain, hand pain, leg pain, foot pain Skin: No Urticaria, No Rash, No Other Neurological: No: Weakness, Numbness, Incoordination, Change in speech, Confusion, Seizures, Other Physical exam: General: Awake alert and oriented Heart: Regular rate and rhythm} Lungs: Clear to auscultation no distress Abdomen: [Soft, nontender, nondistended Assessment: This is a 43-year-old female with history of CARPET RENOVATOR shunt with concerns of fluid within abdomen Plan: This point in time no surgical intervention planned Patient should remain NPO until flatus returns Repeat KUB to assess for concerning obstruction Dr. Newman to be updated in patient's status and surgical team to follow patient closely TIFFANIE GRIFFIN Jr. July 25, 2024 16:45 Electronically Signed by: WILLAM ATKINSON Jr., PA07/25/24 1645 Electronically Co-Signed by: INFECTIOUS DISEASE FOLLOWUP NOTE DATE OF SERVICE: 07/25/2024. SUBJECTIVE: The patient is seen and examined at bedside today. No fever or chills. The patient admitted with nausea and vomiting. CT of the abdomen has been done. No abscess found, only showed some mild free fluid in the pelvis. Urinalysis is negative. PHYSICAL EXAMINATION: VITAL SIGNS: Temperature 98.2. EYES: No icterus. Pupils equal and reactive. HENT: No oral thrush seen. Moist oral mucosa. NECK: Supple. No JVD or thyromegaly. LUNGS: Good air entry. No rales. No rhonchi. CARDIOVASCULAR: S1, S2, regular. No murmur heard. ABDOMEN: Full, soft, nontender. Bowel sound is present. CENTRAL NERVOUS SYSTEM: The patient is awake, alert, oriented x 3. Bedbound with paraplegia of lower extremities. SKIN: No rashes, no itchiness. LYMPHATIC: No peripheral lymphadenopathy. MUSCULOSKELETAL: No joint swelling, erythema, or tenderness. ASSESSMENT: A 43-year-old female admitted with abdominal pain. CURRENT PROBLEMS: Include: * Neurogenic bladder. * Paraplegia of lower extremities. * Abdominal pain. * Paraplegia. * Debility. PLAN: * No antibiotic needed at this time. * Continue antiemetic. * Continue pain management. * Continue DVT prophylaxis. * Monitor electrolytes and correct as needed. TID: [id number] RECEIPT: [id number] Electronically Signed by: EDDIE SINCLAIR MD07/27/24 0935 Electronically Co-Signed by: Procedure(s): RUN DATE: 07/28/24 [facility] PAGE 1 RUN TIME: [phone] [address], [place] [address] Department of Laboratories [facility] # [id number] Painter And Decorator Apprentice: Demian Vargas DO Specimen Report PATIENT: OVIDIO DORSEY ACCT: [id number] LOC: [facility] U: [id number] AGE/SX: 43/F ROOM: [facility] RE07/24/[address]: ESTEFANI MENSAH MD : 1980 BED: 1 DIS: STATUS: ADM IN TLOC: SPEC: [id number] LEIGHA: 07/25/24 STATUS: COMP REQ: [id number] RECD: 07/26/[address] [facility] [address]: THEODORE RODRIGUEZ APRN SOURCE: [facility] ENTR: 07/26/[address] [facility] [address]: EDDIE SINCLAIR MD SPDESC: [facility] MD MAYEN,ISABELL VILLAFANA,FRANKI MARTINEZ ORDERED: AERO ID & SENS Procedure Result Sukhi Date-Time ----- ------- AEROBIC ID & SENSITIVITIES Final 07/28/24-0801 MRL 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 CRITICAL RESULT WAS CALLED BY VERO BEAULIEU ON 07/28/24 AT 0756. CRITCAL VALUES WERE READ BACK AND ACKNOWLEDGED BY ENEDINA HAYNES ( [facility] ) COLONY DESCRIPTION: DAY 1: COLONY COUNT: >100,000 CFU/ML GRAM NEGATIVE RODS IDENTIFICATION AND SENSITIVITY TO FOLLOW DAY 2: SLOW-GROWER; RESULTS PENDING COMMENTS(R): CRE COMMENTS(R): CONFIRMED BY ALTERNATE METHOD KLEBSIELLA PNEUMONIAE K PNEUMO M.I.C. RX --------- ---- AZTREONAM >16 R CEFAZOLIN >16 R CEFTAZIDIME/AVIBACTAM <=8 S CEFTRIAXONE >2 R CIPROFLOXACIN >2 R GENTAMICIN <=2 S LEVOFLOXACIN >4 R NITROFURANTOIN >64 R TETRACYCLINE <=4 S MEROPENEM >8 R PIPERACILLIN/TAZOBACTAM >64 R TRIMETHOPRIM/SUFLAMETHOXAZOLE >2/38 R @ [facility] Test Performed at: [facility] [address], [place], [place] Medical Assistant Track Coach: Bubba Arciniega D.O. PROCEDURE: ABD PEL W - CT ABDOMEN/PELVIS W/CONTRAST CT ABDOMEN/PELVIS W/CONTRAST HISTORY: Emesis COMPARISON: 07/17/2024 TECHNIQUE: Multiple sequential axial images of the abdomen and pelvis were obtained from the dome of the diaphragm through symphysis pubis. Patient was given 100 cc of Omnipaque through intravenous route. Oral contrast was not given. FINDINGS: No pleural effusion is seen bilaterally. There is no evidence of parenchymal disease or pulmonary nodule of the visualized lower lungs. Degenerative changes of the thoracolumbar spine are present. The heart is not enlarged. Liver measures 12 cm. Postcholecystectomy changes seen. There appears be a CARPET RENOVATOR shunt. The liver, spleen, adrenal glands and pancreas are unremarkable. There is no evidence of hydronephrosis bilaterally. No evidence of renal stone is seen. Fecal material is seen in the colon. There are normal size retroperitoneal and mesenteric lymph nodes. Small amount of free fluid is seen in the pelvis. No ascites is seen. Atherosclerotic changes are present. Pelvic sidewalls are symmetric bilaterally. Bladder is poorly distended with bladder wall thickening. IMPRESSION: 1. Small amount of free fluid is seen in the pelvis. There is CARPET RENOVATOR shunt. CT was performed with one or more following dose reduction techniques: automated exposure control, adjustment of the mA and kv according to patient's size, or use of a iterative reconstruction technique. DICTATED BY: RUDY CHADWICK MD DATE: 07/25/24918 ELECTRONICALLY SIGNED BY: RUDY CHADWICK MD DATE: 07/29/24 06 Assessment/Plan: Discharge diagnosis: Severe abdominal pain secondary to complicated UTI POA Intractable nausea and vomiting possibly due to above POA Body fluid culture growing Enterococcus faecalis 07/21/2024 POA ReCurrent acute complicated cystitis infection POA Abdominal fluid collection per CT abdomen/pelvis POA Gastroparesis POA Seizures POA Uncontrolled hypertension POA Depression POA Electrolyte imbalance hypokalemia 3.1 POA Neurogenic bladder dysfunction POA Chronic problem: CARPET RENOVATOR shunt POA Spinal bifida POA Anxiety POA Chronic pancreatitis POA History of G-tube placement History of small bowel resection History of AV shunt placement History of colostomy placement and closure History of cholecystectomy History of appendectomy Discharge Instructions: DATE OF ADMISSION: 07/24/2024 DATE OF DISCHARGE: 07/29/2024 DISPOSITION: Home CONDITION: Medically stable CONSULTANTS: Infectious Disease, surgery FOLLOW UP APPOINTMENTS: Follow up with your primary care doctor in 2 to 3 days . Patient is requested to establish neurology/ neurosurgery care of her CARPET RENOVATOR shunt status-as per the patient her primary care doctor is working on that. PROCEDURES: Report attached to summary IMAGING: report attached to summary MICROBIOLOGY: report attached to summary HOME MEDICATIONS: see med rec NEW MEDICATIONS: See medication reconciliation EMERGENCY INSTRUCTIONS: The patient was instructed to present to the nearest Emergency department or call 911 once their symptoms will return or worsen. Home Medications: Active Scripts Potassium Chloride (K-Dur/Klor-Con) 20 Meq Ertab, 20 MEQ PO BID for 5 Days, #10 TAB.EC Prov:WADE FUCHS SADDLE AND SIDE WIRE STITCHER 04/06/24 Reported Medications Fe Fumarate/FA/Mv, Min Comb#15 (Centratex Capsule) 106 Mg Iron-1 Mg Capsule, 1 EACH PO DAILY, CAP 07/25/24 Sennosides (Senna Laxative) 8.6 Mg Tablet, 8.6 MG PO DAILY PRN for CONSTIPATION, TAB 07/25/24 Alprazolam (Alprazolam) 2 Mg Tab.rapdis, 1 TAB PO TID PRN for ANXIETY for 30 Days, #90 TAB 0 Refills 07/25/24 Levetiracetam (Levetiracetam) 1,000 Mg Tablet, 1 TAB PO BID for SEIZURES 07/25/24 Plecanatide (Trulance) 3 Mg Tablet, 1 TAB PO DAILY for 30 Days, #30 TAB 0 Refills 07/17/24 Lisinopril (Lisinopril) 10 Mg Tablet, 1 TAB PO DAILY for 30 Days, #30 TAB 0 Refills 07/17/24 Linaclotide (Linzess) 290 Mcg Capsule, 1 CAP PO DAILY for 30 Days, #30 CAP 0 Refills 07/17/24 Hydroxyzine Pamoate (Hydroxyzine Pamoate) 25 Mg Capsule, 1 CAP PO HSPRN for 30 Days, #90 CAP 0 Refills 07/17/24 Furosemide (Furosemide) 20 Mg Tablet, 1 TAB PO DAILY for 30 Days, #30 TAB 0 Refills 07/17/24 Hydromorphone HCl (Dilaudid) 4 Mg Tab, 4 MG PO AM, TAB 03/04/24 Esomeprazole Magnesium (Esomeprazole Magnesium) 20 Mg Capsule.dr, 1 CAP PO DAILY for acid reflux for 30 Days, #30 CAP 0 Refills 03/04/24 Minocycline HCl (Minocycline HCl) 100 Mg Capsule, 1 CAP PO BID for 30 Days, #60 CAP 0 Refills 03/04/24 Ziprasidone HCl (Ziprasidone HCl) 20 Mg Capsule, 1 CAP PO BID for 30 Days, #60 CAP 0 Refills 03/04/24 Quetiapine Fumarate (Quetiapine Fumarate) 25 Mg Tablet, 1 TAB PO HS for 30 Days, #30 TAB 0 Refills 03/04/24 Dicyclomine HCl (Dicyclomine HCl) 10 Mg Capsule, 10 MG PO Q4HPRN, CAP 03/04/24 Sertraline HCl (Sertraline HCl) 100 Mg Tablet, 1 TAB PO DAILY for 30 Days, #30 TAB 0 Refills 03/04/24 [Keppra] No Conflict Check, 150 MG PO BID 03/04/24 Discontinued Reported Medications Alprazolam (Alprazolam) 2 Mg Tablet, 2 MG PO TID, TAB 06/02/19 Time spent arranging discharge: 1-30 minutes ATTESTATION BY PHYSICIAN I have seen and examined the patient. I reviewed the documentation, medical decision making, and treatment plan as noted by the resident provider above. I agree with the findings and plan of care. Dash Perez MD, ANCHU A MD July 29, 2024 13:44
[2024-07-29] MEDS: PROMETHAZINE HCL 25 MG/ML 1ML AMPULE IM ONE (13:59)
--- NOTE | 2024-07-29 14:32 | PN ---
INFECTIOUS DISEASE PROGRESS NOTE Date of Service: July 29, 2024 SUBJECTIVE: This is a 43-year-old female patient who was seen and examined at bedside in room 308. Patient is afebrile, temperature is 98.4 and the WBC is 6.0. No episodes of emesis reported. We will discontinue the tigecycline and start patient on doxycycline 100 mg po every 12 hours. From Infectious Disease standpoint patient is cleared to be discharged on doxycycline p.o. when ready to discharge. PHYSICAL EXAM EYES: Anicteric. Pupils equal and reactive. HENT: No oral thrush seen, moist Oral mucosa. NECK: Supple, no JVD or thyromegaly. LUNGS: Good air entry. No rales, no rhonchi. CARDIOVASCULAR: S1, S2 regular. No murmur heard. ABDOMEN: Soft, non tender, bowel sounds present, no organomegaly. Abdominal pain POA. CENTRAL NERVOUS SYSTEM: Awake, alert, oriented x 3. SKIN: No rashes, no swelling. LYMPHATICS: No peripheral lymphadenopathy. MUSCULOSKELETAL: No joint swelling, erythema or tenderness. EXTREMITIES: No cyanosis or clubbing. BACK: No deformity, no pressure ulcer. GENITOURINARY: No dysuria or hematuria. Vital Sign (Last 12 Hours) 07/29/24 07/29/24 07/29/24 07/29/24 04:23 07:44 09:30 11:56 Temp 98.2 98.2 98.4 Pulse 72 72 63 Resp 17 16 19 B/P (MAP) 109/72 137/79 142/96 Pulse Ox 98 95 95 95 O2 Delivery Room Air Room Air Room Air* Room Air O2 Flow Rate 0 FiO2 21 Intake & Output (last 24hrs) 07/28/24 07/28/24 07/29/24 15:00 23:00 07:00 Intake Total 120 ml Output Total 2800 ml Balance -2800 ml 120 ml LABS: Laboratory: Test 07/29/24 11:00 07/29/24 06:55 07/28/24 20:19 07/28/24 09:06 Range/Units Whole Blood Glucose 96 70-110 MG/DL White Blood Count 6.0 4.8-10.8 K/uL Red Blood Count 3.88 L 4.00-5.50 MIL/uL Hemoglobin 11.1 L 12.0-16.0 g/dL Hematocrit 35.1 L 36-48 % Mean Corpuscular Volume 90.5 79-99 fL Mean Corpuscular Hemoglobin 28.6 27.0-33.0 pg Mean Corpuscular Hemoglobin Concent 31.6 L 32.0-36.0 g/dL Red Cell Distribution Width 13.7 11.0-15.5 % Platelet Count 198 130-400 K/uL Mean Platelet Volume 10.4 7.5-10.5 fL Nucleated Red Blood Cells 0.0 0.0-0.19 % Sodium Level 140 136-145 mmol/L Potassium Level 3.3 L 3.5-5.1 mmol/L Chloride Level 105 101-111 mmol/L Carbon Dioxide Level 26 21-32 mmol/L Blood Urea Nitrogen 7 7-18 mg/dL Creatinine 0.9 0.5-1.0 mg/dL Glomerular Filtration Rate Calc 81 >90 mL/min Random Glucose 87 70-105 mg/dL Total Calcium 8.2 L 8.5-10.1 mg/dL Vancomycin Level Trough 20.6 H 10.0-20.0 UG/ML Immature Granulocyte % (Auto) 0.2 0-1 % Neutrophils (%) (Auto) 61.9 40.0-77.0 % Lymphocytes (%) (Auto) 27.0 21.0-51.0 % Monocytes (%) (Auto) 4.7 3.0-13.0 % Eosinophils (%) (Auto) 5.8 0.0-8.0 % Basophils (%) (Auto) 0.4 0.0-5.0 % Neutrophils # (Auto) 3.3 1.8-7.7 K/uL Lymphocytes # (Auto) 1.4 1.0-4.8 K/uL Monocytes # (Auto) 0.3 0.1-1.0 K/uL Eosinophils # (Auto) 0.31 0.00-0.70 K/uL Basophils # (Auto) 0.02 0.00-0.20 K/uL Absolute Immature Granulocyte (auto 0.01 0-1 K/uL Total Bilirubin 0.4 0.2-1.0 mg/dL Aspartate Amino Transf (AST/SGOT) 23 10-37 U/L Alanine Aminotransferase (ALT/SGPT) 26 12-78 U/L Alkaline Phosphatase 163 H 50-136 U/L C-Reactive Protein, Quantitative 6.10 H 0.5-3.0 mg/L Total Protein 7.1 6.0-8.3 g/dL Albumin 3.9 3.5-5.0 g/dL ASSESSMENT: Urinary tract infection with Klebsiella pneumoniae. Intra-abdominal fluid infection with Enterococcus faecalis. Infection with multidrug resistant organism. Abdominal pain. History of neurogenic bladder. History of chronic pancreatitis. PLAN: Discontinue tigecycline. Start doxycycline 100 mg p.o. every 12 hours. From Infectious Disease standpoint patient is cleared to be discharged on Doxycycline when ready to discharge. Continue pain management. Continue GI prophylaxis. This case was reviewed and discussed with my supervising physician and the above assessment and plan was formulated and agreed upon. ATTESTATION BY PHYSICIAN I have seen and examined the patient. I reviewed the documentation, medical decision making, and treatment plan as noted by the mid-level provider above. I agree with the findings and plan of care. EDDIE SINCLAIR MD, MIRTA L [facility] July 29, 2024 14:32
[2024-07-29] MEDS ORDERED: DOXY100C5 PO (15:45)
--- NOTE | 2024-07-29 17:13 | NUR ---
PATIENT DISCHARGED PERIPHERAL LINES DISCONTINUED. DISCHARGE INSTRUCTIONS GIVEN. PRESCRIPTIONS GIVEN PATIENT AWARE TO F/U WITH PCP. ALL QUESTIONS ANSWERED.
[2024-07-29] MEDS ORDERED: DOXYCYCLINE HYCLATE 100 MG TABLET PO SCH (21:00)
== END 2024-07-29 17:05 | disposition home or self-care (01) | DRG 463 ==
LOC: EDH 22:53 → EDHIP 22:54 → 3BH 07-25 09:35
PROVIDERS: ADMIT Internal Medicine; ATTEND Internal Medicine
DX: N30.00 Acute cystitis without hematuria (principal); G82.20 Paraplegia, unspecified; R18.8 Other ascites; E87.6 Hypokalemia; F32.A Depression, unspecified; F41.9 Anxiety disorder, unspecified; I10 Essential (primary) hypertension; N31.9 Neuromuscular dysfunction of bladder, unspecified; B95.2 Enterococcus as the cause of diseases classified elsewhere; K31.84 Gastroparesis; G40.909 Epilepsy, unspecified, not intractable, without status epilepticus; K86.1 Other chronic pancreatitis; B96.1 Klebsiella pneumoniae [K. pneumoniae] as the cause of diseases classified elsewhere; Z93.1 Gastrostomy status; Z98.2 Presence of cerebrospinal fluid drainage device; Z93.3 Colostomy status; Z90.49 Acquired absence of other specified parts of digestive tract; Z16.24 Resistance to multiple antibiotics; Z16.11 Resistance to penicillins; Z16.12 Extended spectrum beta lactamase (ESBL) resistance; Z79.899 Other long term (current) drug therapy
CPT/HCPCS: 36415; 71045; 74018; 74177; 80048; 80053; 80076; 80202; 81003; 81025; 82140; 82550; 82948; 83036; 83605; 83735; 83880; 84145; 85025; 85027; 86140; 87086; 87186; 99285; G0378; J0696; J1171; J1644; J1885; J2270; J2405; J2543; J2550; J3243; J3370; J3490; Q9967; 3370

== ENCOUNTER 2024-08-13 05:56 | Day surgery (SDC) | payer MEDICAID ==
[2024-08-13] VITALS (10 sets, daily range): BP systolic 102–137; BP diastolic 54–90; PULSE 52–78; RESP 16–18; TEMP 97–97.6
[~2024-08-13] VITALS: Ht 147.3 cm; Wt 140.6 kg
[~2024-08-13 05:56] MED LIST changes: +0.9%NACL 1000ML 1,000 ML IV ONE; +ALPR-412 PO; -ALPR2TAB7 PO; +DOXY100C5 PO; -ESOM20CA51 PO; +FE F1CAP33 PO; -FURO20TA4 PO; -HYDR-4030 PO; -HYDR4 PO; -KEPPRA PO; +LEVE100023 PO; -MINO100C6 PO; -POTA-192 PO; -QUET25TA36 PO; +SENN8.6T20 PO; -SERT-440 PO; -ZIPR20CA23 PO
[2024-08-13] MEDS ORDERED: proPOFol 10 MG/ML 20ML VIAL IV ONE (08:51)
[2024-08-13] MEDS: ondanSETRON 4MG INJ ONE (09:38)
== END 2024-08-13 10:20 | disposition home or self-care (01) ==
LOC: ENDO 05:56 → DAH 05:56 → ENDO 10:20
PROVIDERS: ATTEND Internal Medicine
DX: K56.609 Unspecified intestinal obstruction, unspecified as to partial versus complete obstruction (principal); K29.50 Unspecified chronic gastritis without bleeding; K31.89 Other diseases of stomach and duodenum; K59.04 Chronic idiopathic constipation; R11.2 Nausea with vomiting, unspecified; R13.10 Dysphagia, unspecified; R12 Heartburn; F41.9 Anxiety disorder, unspecified; F32.A Depression, unspecified; Q05.9 Spina bifida, unspecified; R56.9 Unspecified convulsions; E66.01 Morbid (severe) obesity due to excess calories; I10 Essential (primary) hypertension; Z86.2 Personal history of diseases of the blood and blood-forming organs and certain disorders involving the immune mechanism; Z79.899 Other long term (current) drug therapy; Z90.49 Acquired absence of other specified parts of digestive tract; Z98.890 Other specified postprocedural states; Z80.0 Family history of malignant neoplasm of digestive organs; Z68.26 Body mass index [BMI] 26.0-26.9, adult
CPT/HCPCS: 44361; 81025; J7030; J2704; J2405; A4620; A4215 ×2; A4223; A4222; A4221; A4663; A4606; J3490

== ENCOUNTER 2024-10-21 00:27 | Inpatient (IN) | payer MEDICAID ==
[2024-10-21] VITALS (8 sets, daily range): BP systolic 106–132; BP diastolic 67–87; PULSE 70–79; RESP 16–20; TEMP 97.9–98.3; O2SAT 97–100
[~2024-10-21] VITALS: Ht 147.3 cm; Wt 61.1 kg
[~2024-10-21 00:27] MED LIST changes: -0.9%NACL 1000ML 1,000 ML IV ONE
[2024-10-21 01:21] LABS: APPEARANCE,URINE CLEAR (CLEAR); GLUCOSE, URINE (UA) NEGATIVE (NEGATIVE); LEUKOCYTE ESTERASE ,URINE NEGATIVE Leu/uL (NEGATIVE); NITRATE,URINE NEGATIVE (NEGATIVE); OCCULT BLOOD,URINE NEGATIVE (NEGATIVE)
--- NOTE | 2024-10-21 01:27 | ERN ---
General Chief Complaint: Abdominal Pain Stated Complaint: C/O ABD PAIN W/ N X V, SWELLING TO RT SIDE OF NECK Time Seen by MD: 00:37 Source: patient History of Present Illness Initial Comments 43-year-old female born with spina bifida and has a neobladder. She comes in with complaints of abdominal pain and nausea and vomiting. She states she has an ESBL urinary tract infection and she was admitted to [facility] for two months for it was being treated with tigecycline IV using a tunneled ca theter. Since leaving that hospital she has gone through a variety of other medications to treat her urinary tract infection. She was given IV gentamicin and that needed to be stopped because it was causing kidney damage. After that she was given another antibiotic that caused her worsening nausea vomiting. After that she was given Bactrim which caused swelling in her neck. She comes in today with abdominal pain and looking for an antibiotic that can treat her UTI. She thinks her abdominal pain maybe due to a renal stone or the UTI. Looking through her past medical history I find a urine culture that showed an ESBL Klebsiella. Addition she has chronic pancreatitis for which she takes oral Dilaudid through a pain medicine specialist. Timing/Duration: 1 week Associated Symptoms: headaches, nausea/vomiting Allergies: Coded Allergies: No Known Drug Allergies (Verified Allergy, Unknown, 07/12/20) Home Meds Active Scripts Doxycycline Hyclate (Doxycycline Hyclate) 100 Mg Capsule, 1 CAP PO BID for 10 Days, #20 CAP 0 Refills Prov:JEANE LEWIS MD 07/29/24 Reported Medications Fe Fumarate/FA/Mv, Min Comb#15 (Centratex Capsule) 106 Mg Iron-1 Mg Capsule, 1 EACH PO DAILY, CAP 07/25/24 Sennosides (Senna Laxative) 8.6 Mg Tablet, 8.6 MG PO DAILY PRN for CONSTIPATION, TAB 07/25/24 Alprazolam (Alprazolam) 2 Mg Tab.rapdis, 1 TAB PO TID PRN for ANXIETY for 30 Days, #90 TAB 0 Refills 07/25/24 Levetiracetam (Levetiracetam) 1,000 Mg Tablet, 1 TAB PO BID for SEIZURES 07/25/24 Plecanatide (Trulance) 3 Mg Tablet, 1 TAB PO DAILY for 30 Days, #30 TAB 0 Refills 07/17/24 Lisinopril (Lisinopril) 10 Mg Tablet, 1 TAB PO DAILY for 30 Days, #30 TAB 0 Refills 07/17/24 Linaclotide (Linzess) 290 Mcg Capsule, 1 CAP PO DAILY for 30 Days, #30 CAP 0 Refills 07/17/24 Dicyclomine HCl (Dicyclomine HCl) 10 Mg Capsule, 10 MG PO Q4HPRN, CAP 03/04/24 Past Medical History Past Medical History: Pancreatitis, Other Medical History Other: SPINAL BIFIDA, ESBL Klebsiella UTI Past Surgical History: Other Surgical History Other: PICC LINE TO RT SIDE OF CHEST Family History Family History: Negative Social History Social History: Negative, Lives with family, Other Female( History) History: Not Applicable : 0 Constitutional: (+) malaise, (+) weakness EENTM: (-) eye pain, (-) blurred vision, (-) tearing, (-) double vision, (-) ear pain, (-) ear discharge, (-) nose pain, (-) nose congestion, (-) throat pain, (-) Throat swelling, (-) mouth pain, (-) tooth pain, (-) mouth swelling, (-) other documentation Respiratory: (-) cough, (-) orthopnea, (-) short of breath, (-) stridor, (-) wheezing, (-) other documentation Cardiovascular: (-) chest pain, (-) edema, (-) palpitations, (-) syncope, (-) dyspnea on exertion, (-) other documentation Gastrointestinal/Abdominal: (+) nausea, (+) vomiting, (+) abdominal pain Genitourinary: (-) vaginal discharge, (-) vaginal bleeding, (-) dysuria, (-) frequency, (-) hematuria, (-) pain, (-) other documentation Musculoskeletal: (-) Neck pain, (-) back pain, (-) Flank Pain, (-) joint pain, (-) joint swelling, (-) muscle pain, (-) muscle stiffness, (-) gout, (-) other documentation Skin: (-) laceration, (-) contusion, (-) abrasion, (-) abscess, (-) rash, (-) change in color, (-) change in hair, (-) change in nails, (-) diaphoresis, (-) dryness, (-) other documentation Neuro: (-) altered mental status, (-) headache, (-) syncope, (-) paralysis, (-) numbness, (-) seizure, (-) pre-existing deficit, (-) tremors, (-) weakness, (-) dizziness, (-) slurred speech, (-) vertigo, (-) other documentation Physical Exam General Appearance: (+) mild distress Orientation: (+) alert, (+) oriented x 3 Head/Face Trauma: No Eye: bilateral eye normal inspection, bilateral eye PERRL, bilateral eye EOMI Ear, Nose, Throat: (+) hearing grossly normal, (+) normal ENT inspection, (+) moist mucous membraine Neck: (+) normal inspection, (+) supple, (+) full range of motion Respiratory: (+) chest non-tender, (+) lungs clear, (+) well ventilated Heart: (+) regular, (+) no gallop Vascular: (+) no edema, (+) normal peripheral pulse, (+) no JVD Gastrointestinal: (+) soft, (+) bowel sound present, (+) tender Skin Comment Patient has what looks like a central line going into the right IJ. The inse rtion site and the exit site both appear uninfected with healthy skin. Results Laboratory and Microbiology Lab and Micro Result Laboratory Tests Test 10/21/24 01:12 10/21/24 01:36 Urine Color LIGHT-YELLOW (YELLOW) Urine Appearance CLEAR (CLEAR) Urine pH 6.5 (5.0-8.0) Urine Specific [place] 1.006 (1.001-1.031) Urine Protein NEGATIVE mg/dL (NEGATIVE) Urine Glucose (UA) NEGATIVE mg/dL (NEGATIVE) Urine Ketones NEGATIVE mg/dL (NEGATIVE) Urine Occult Blood NEGATIVE (NEGATIVE) Urine Nitrate NEGATIVE (NEGATIVE) Urine Bilirubin NEGATIVE mg/dL (NEGATIVE) Urine Urobilinogen 0.2 mg/dL (0.2-1.0) Urine Leukocyte Esterase NEGATIVE [place]/uL Urine HCG, Qualitative NEGATIVE (NEGATIVE) White Blood Count 7.4 K/uL (4.8-10.8) Red Blood Count 3.80 MIL/uL (4.00-5.50) L Hemoglobin 10.4 g/dL (12.0-16.0) L Hematocrit 32.7 % (36-48) L Mean Corpuscular Volume 86.1 fL (79-99) Mean Corpuscular Hemoglobin 27.4 pg (27.0-33.0) Mean Corpuscular Hemoglobin Concent 31.8 g/dL (32.0-36.0) L Red Cell Distribution Width 13.5 % (11.0-15.5) Platelet Count 204 K/uL (130-400) Mean Platelet Volume 11.1 fL (7.5-10.5) H Immature Granulocyte % (Auto) 0.3 % (0-1) Neutrophils (%) (Auto) 71.1 % (40.0-77.0) Lymphocytes (%) (Auto) 21.6 % (21.0-51.0) Monocytes (%) (Auto) 5.4 % (3.0-13.0) Eosinophils (%) (Auto) 1.2 % (0.0-8.0) Basophils (%) (Auto) 0.4 % (0.0-5.0) Neutrophils # (Auto) 5.2 K/uL (1.8-7.7) Lymphocytes # (Auto) 1.6 K/uL (1.0-4.8) Monocytes # (Auto) 0.4 K/uL (0.1-1.0) Eosinophils # (Auto) 0.09 K/uL (0.00-0.70) Basophils # (Auto) 0.03 K/uL (0.00-0.20) Absolute Immature Granulocyte (auto 0.02 K/uL (0-1) Nucleated Red Blood Cells 0.0 % (0.0-0.19) Sodium Level 136 mmol/L (136-145) Potassium Level 3.1 mmol/L (3.5-5.1) L Chloride Level 104 mmol/L (101-111) Carbon Dioxide Level 21 mmol/L (21-32) Blood Urea Nitrogen 8 mg/dL (7-18) Creatinine 0.8 mg/dL (0.5-1.0) Glomerular Filtration Rate Calc 93 mL/min (>90) Random Glucose 103 mg/dL (70-105) Total Calcium 8.3 mg/dL (8.5-10.1) L MDM MDM: Differential diagnosis: Abdominal pain could be secondary to chronic urinary tract infection from the multidrug resistant ESBL Klebsiella or the Enterobacter from fluid collections inside her abdomen. Patient states she does have renal stones. These two could be causing the pain. Other causes small-bowel obstruction muscle strain GERD pyelonephritis kinking of ureters. Rationale: Tests considered and ordered secondary to shared decision making include: Previous outside records reviewed: Old ER visits. Risk of complication and/or morbidity or mortality of patient management: None Medications-Per medication reconciliation Need for hospitalization: Patient does meet criteria for hospitalization. Need for emergency major/minor surgery: No There are no social concerns with this patient. Prescription drug management Prescriptions will include symptomatic care Patient's prior external medical records from other ER visits were reviewed by me as indicated. Prior testing and results from previous visits were reviewed. Prior tests were taken into account with medical decision making and resource utilization, independent historian/historians were used to obtain complete m edical history. I independently interpreted the test that were performed, results were reviewed by me and considered findings on radiology if ordered. Order standard labs to see if she does have a urinary tract infection with a white count and a need for admission for IV antibiotics. I could not get a good sense from the patient as to whether or not she could adequately stay hydrated, so I may or may not need to admit her for IV hydration. Patient's CBC is normal patient's urine does not have signs of an infection. Patient's chemistry panel is also normal. Unfortunately the patient is still has a unremitting nausea and vomiting. And therefore I will admit her to the hospital for pain control as well as hydration. ED Course Orders Procedure Category Date Status Time Urinalysis Profile LAB 10/21/24 Complete 01:13 ,Urine Test LAB 10/21/24 Complete 01:13 Basic Metabolic Panel LAB 10/21/24 Complete 01:27 Cbc With Differential LAB 10/21/24 Complete 01:27 Ondansetron 4mg Inj PHA 10/21/24 Complete (Zofran 4mg Inj) 02:30 Potassium Chloride PHA 10/21/24 Complete 20meq/100ml ([place] 02:30 Hydromorphone 0.5mg PHA 10/21/24 Complete Syg (Dilaudid 0.5mg 02:30 Potassium Chloride PHA 10/21/24 Complete 10meq/100ml ([place] 02:30 Potassium Chloride PHA 10/21/24 In Process 10meq/100ml ([place] 03:00 Potassium Chloride PHA 10/21/24 In Process 10meq/100ml ([place] 04:00 Current Medications Medications (Trade) Dose Ordered Sig/Sandi Route PRN Reason Start Time Stop Time Status Last Admin Dose Admin Hydromorphone HCl (DiLAUDid 0.5MG INJ) 0.5 mg ONCE ONCE IVP 10/21/24 02:30 10/21/24 02:31 DC 10/21/24 02:35 Ondansetron HCl (zoFRAN 4MG INJ) 8 mg ONCE ONCE IVP 10/21/24 02:30 10/21/24 02:31 DC 10/21/24 02:17 Potassium Chloride 100 ml @ 50 mls/hr PROTOCOL ONCE IV 10/21/24 02:30 10/21/24 02:23 DC Potassium Chloride 100 ml @ 100 mls/hr ONCE ONCE IV 10/21/24 03:00 10/21/24 03:59 10/21/24 02:47 Potassium Chloride 100 ml @ 100 mls/hr ONCE ONCE IV 10/21/24 04:00 10/21/24 04:59 Potassium Chloride 100 ml @ 100 mls/hr Q1H IV 10/21/24 02:30 10/21/24 02:30 DC Vital Signs Date Time Temp Pulse Resp B/P (MAP) Pulse Ox O2 Delivery O2 Flow Rate FiO2 10/21/24 02:07 80 18 119/69 99 Room Air* 0 21 10/21/24 00:28 98.6 68 20 123/85 100 Room Air DX & DISP Disposition: Inpatient Departure Impression: Primary Impression: Intractable nausea and vomiting Additional Impressions: Other chronic pancreatitis, Abdominal pain Condition: Stable Referrals: FRANKI VILLAFANA MD (PCP) ISABELL MAYEN MD Oct 21, 2024 01:26
[2024-10-21 01:29] LABS: ADD UA MICROSCOPIC NO; HCG,QUALITATIVE URINE NEGATIVE (NEGATIVE)
[2024-10-21 01:42] LABS: IMMATURE GRANULOCYTE ABSOLUTE 0.02 K/uL (0-1); NUCLEATED RED BLOOD CELLS 0.0 % (0.0-0.19); PLATELET COUNT (AUTO) 204 K/uL (130-400); RED BLOOD CELL COUNT(AUTO) 3.80 MIL/uL (4.00-5.50); RED CELL DISTRIBUTION WIDTH 13.5 % (11.0-15.5); WHITE BLOOD COUNT (AUTO) 7.4 K/uL (4.8-10.8)
[2024-10-21 01:53] LABS: CREATININE 0.8 mg/dL (0.5-1.0); GLOMERULAR FILTR. RATE CALC 93.0 mL/min (>90); GLUCOSE,RANDOM 103.0 mg/dL (70-105); SODIUM SERUM 136.0 mmol/L (136-145); UREA NITROGEN, BLOOD 8.0 mg/dL (7-18)
--- NOTE | 2024-10-21 03:06 | HP ---
History of Present Illness Reason for Visit: abdominal pain Referring MD: Dr. Jorge Negron History of Present Illness Mr. Damon is a 43 year old female that was seen and examined today on 10/21/24. patient is a good historian of personal health Patient states he came to the emergency department with a chief complaint of abdominal pain. Onset was 10/20/2024. Location is epigastric. Duration is on and off. Character is described as aching. There was no alleviating factors. Symptoms are aggravated with IV antibiotics [facility] which she believes as Tygacil. Patient states her last dose was yesterday. Patient reports associated nausea and vomiting. Today in the emergency department potassium 3.1, CBC unremarkable, urinalysis unremarkable. Emergency room physician recommended that patient be admitted with a diagnosis of hypokalemia and intractable nausea or vomiting. Past Medical History Patient History: Cancer MOTHER, Onset:Unknown (cancer in uterus) Chronic obstructive pulmonary disease BROTHER FH: depression BROTHER, Onset:5 SISTER, Onset:19 Family history: Asthma MOTHER, Onset:[place] Family history: Diabetes mellitus MOTHER, Onset:Unknown FATHER BROTHER SISTER Family history: Hypertension MOTHER, Onset:Unknown FATHER, Onset:Unknown Stroke MOTHER FATHER, Onset:60 years & older No Family History of: Chronic obstructive lung disease Family history: Alzheimer's disease Family history: Cardiovascular disease Parkinson's disease Sudden Unknown PAST MEDICAL HISTORY: [Anxiety, neurogenic bladder, spinal bifida, chronic pancreatitis, gastroparesis, seizures, depression, BP shunt, recent UTI positive for Klebsiella pneumoniae, recent fluid collection in the abdomen positive for Ent erococcus faecalis, recurrent utis PAST SURGICAL HISTORY: [ J-tube placement, small bowel resection, av shunt placement, colostomy placement and closure, cholecystectomy, appendectomy ] PAST SOCIAL HISTORY: [ Patient denies any alcohol use, patient denies well. Patient denies drug illicit ] Review of Systems General: No Fever, No Chills, No Night Sweats, No Fatigue, No Malaise, No Appetite, No Other HEENT: No Head Aches, No Visual Changes, No Eye Pain, No Ear Pain, No Dysphasia, No Sinus Congestion, No Post Nasal Drip, No Sore Throat, No Other Pulmonary: No Dyspnea, No Cough, No Pleuritic Chest Pain, No Other Cardiovascular: Other; No: Chest Pain, Palpitations, Orthopnea, Paroxysmal Noc. Dyspnea, Edema, Lt Headedness Gastrointestinal: Nausea, Vomiting, Abdominal Pain; No: Diarrhea, Constipation, Melena, Hematochezia, Other Genitourinary: No Dysuria, No Frequency, No Incontinence, No Hematuria, No Retention, No Other Musculoskeletal: No: other, neck pain, shoulder pain, arm pain, back pain, hand pain, leg pain, foot pain Skin: No Urticaria, No Rash, No Other Neurological: No: Weakness, Numbness, Incoordination, Change in speech, Confusion, Seizures, Other Allergies: Coded Allergies: No Known Drug Allergies (Verified Allergy, Unknown, 07/12/20) Scheduled Dicyclomine HCl (Dicyclomine HCl), 10 MG PO Q4HPRN, (Reported) Doxycycline Hyclate (Doxycycline Hyclate), 1 CAP PO BID Fe Fumarate/FA/Mv, Min Comb#15 (Centratex Capsule), 1 EACH PO DAILY, (Reported) Levetiracetam (Levetiracetam), 1 TAB PO BID, (Reported) Linaclotide (Linzess), 1 CAP PO DAILY, (Reported) Lisinopril (Lisinopril), 1 TAB PO DAILY, (Reported) Plecanatide (Trulance), 1 TAB PO DAILY, (Reported) Scheduled PRN Alprazolam (Alprazolam), 1 TAB PO TID PRN for ANXIETY, (Reported) Sennosides (Senna Laxative), 8.6 MG PO DAILY PRN for CONSTIPATION, (Reported) Exam Vital Signs Vital Signs Date Time Temp Pulse Resp B/P (MAP) Pulse Ox O2 Delivery O2 Flow Rate FiO2 10/21/24 02:07 80 18 119/69 99 Room Air* 0 21 10/21/24 00:28 98.6 General Appearance: Alert, Oriented X3, Cooperative, No acute distress HEENT: Atraumatic, EOMI, Mucous membr. moist/pink Respiratory: Clear to auscultation, Normal air movement, NL respiratory effort Cardiovascular: Regular rate, Regular rhythm, Normal S1, Normal S2 Abdominal: Normal bowel sounds, Soft, No tenderness Extremities: No edema Skin: No significant lesion Neuro: Normal speech, Strength at 5/5 X4 ext, Sensation intact, Cranial nerves 3-12 NL Psych/Mental Status: Mental status NL, Mood NL, Thoughts/Content NL Assessment/Plan ASSESSMENT: [ hypokalemia,poa intractable n/v, poa Anxiety neurogenic bladder spinal bifida seizures depression recurrent utis PLAN: [ Hypokalemia: Replace potassium per hospital protocol. Intractable nausea, vomiting: Keep patient NPO. GI rest. Consider advancing diet to clear liquid around dinnertime today. If patient no longer has nausea or vomiting. As-needed antiemetic, Zofran. IV fluid maintenance therapy lactated Ringer's at 75 mL/HR. Anxiety, neurogenic bladder, spina bifida, seizures, depression, recurrent UTIs: Consider resuming home medications once they have been reconciled. At time of admission home medications has been reconciled. For now: Seizure precautions Reviewed patient's urinalysis which was unremarkable. Levetiracetam 1000 mg IV twice daily patient states her home doses a 1000 mg p.o. twice daily Consult patient's infectious disease doctor, Dr. Ferrera for recommendations on antibiotic treatment GI prophylaxis, Protonix DVT prophylaxis, Christiano's and SCDs ADVANCED CARE PLANNING 1. Which of the following were discussed? Hospice Care - Yes Therapeutic options - yes Advance Directives - Yes - patient states he does not have any advance directives in place at this time Other discussions - patient wishes to remain a full code 2. Discussed with who? Patient 3. Voluntary nature of this service was explained to the patient? Yes 4. Amount of time spent - ___16 minutes____ 5. Reviewed by Physician? (if this service was performed by NPP) Yes This document was generated in part using voice recognition software, occasional wrong word or sound alike substitutions may have occurred due to the inherent limitations of voice recognition software. Read the chart carefully and recognize using context, where the substitutions have occurred. Although every effort was made to edit the content, stereotyper apprentice and typing errors may occur ATTESTATION BY PHYSICIAN I have seen and examined the patient. I reviewed the documentation, medical decision making, and treatment plan as noted by the mid-level provider above. I agree with the findings and plan of care. TRAE ALEJANDRA [facility] Oct 21, 2024 03:06
[2024-10-21] MEDS: LACTATED RINGERS 1000ML 1,000 ML IV SCH ×2 (03:17→09:39)
--- NOTE | 2024-10-21 04:11 | NUR ---
home meds asked patient for her home medications. her family member will bring them today.
[2024-10-21] MEDS: leveTIRACEtam 500 MG/5 ML SD V 500 MG in 0.9%NACL 100ML 100 ML IV SCH (04:14)
[2024-10-21] MEDS ORDERED: OMEP40CA21 PO (05:08)
[2024-10-21] MEDS ORDERED: POTA-202 PO (05:08)
[2024-10-21] MEDS ORDERED: leveTIRACEtam 500 MG/5 ML SD V 1,000 MG in 0.9%NACL 100ML 100 ML IV SCH (06:00)
--- NOTE | 2024-10-21 10:15 | HMCIMG ---
EXAM: CR Chest, 2 View. CLINICAL HISTORY: picc line placement COMPARISON: Radiograph dated July 25, 2024 FINDINGS: Right IJ central venous catheter tip projects over the right atrium. Partially visualized FRUIT TRIMMER shunt catheter tubing overlies the right chest. LUNGS: The lungs show no infiltrate or other acute finding. PLEURAL SPACES: No evidence of pleural effusion or pneumothorax. MEDIASTINUM: Cardiac size and mediastinal contours within normal limits. BONES: No aggressive appearing osseous lesion seen. IMPRESSION: Right IJ central venous catheter tip projects over the right atrium. No acute cardiopulmonary pathology is evident. /[place]
--- NOTE | 2024-10-21 10:22 | NUR ---
DCP: HOME Pt currently lives with a roomate. Pt receives $290 in [employer]. Pt uses a wheelchair, cane, and walker at home to ambulate. Pt receives 5 hrs a day in provider services and they assist her with all ADLs, home health, and provider services. PCP is Dr. Jorge Negron and uses [facility] for any RX needs. At [place] pt will want to go home and family can assist with transportation. Addendum: 10/21/24 at 1025 by CECIL GARCIA SS Amended: Links added.
[2024-10-21] MEDS ORDERED: PHARMACY COMMUNICATION 1 EACH EACH MISC SCH (12:00)
[2024-10-21] MEDS ORDERED: COMPOUND IV MISC 1 EACH IVSOLN MISC PRN (12:00)
[2024-10-21] MEDS: MAGNESIUM 2GM PREMIX 50ML 50 ML IV PRN (16:52)
--- NOTE | 2024-10-21 16:54 | PN ---
INFECTIOUS DISEASE FOLLOWUP NOTE DATE OF SERVICE: 10/21/2024. SUBJECTIVE: The patient is seen and examined at bedside today. The patient has had no fever, no chills. No nausea, no vomiting, no abdominal pain. No bleeding tendency. No rashes or itchiness. No palpitations, orthopnea. Denies depression. No suicidal ideation. No heat or cold intolerance. No dysuria or hematuria. OBJECTIVE: VITAL SIGNS: Temperature today 97.5. EYES: No icterus. Pupils equal and reactive. HENT: No oral thrush seen. Moist oral mucosa. NECK: Supple. No JVD or thyromegaly. LUNGS: Good air entry. No rales. No rhonchi. CARDIOVASCULAR: S1, S2, regular. No murmur heard. ABDOMEN: Full, soft, nontender. Bowel sound is present. CENTRAL NERVOUS SYSTEM: Awake, alert, oriented x 3. Bedbound debility. SKIN: No rashes, no itchiness. LYMPHATIC: No peripheral lymphadenopathy. BACK: . HEMATOLOGIC: No bleeding or petechial lesions seen. LABORATORY DATA: Urinalysis is negative. ASSESSMENT: A 43-year-old female with multiple problems which include: * Spina bifida. * Neurogenic bladder. * Nausea and vomiting. * Debility. PLAN: * No antibiotic needed at this time. * Continue intermittent bladder catheterization. * Continue antiemetic. * Continue to keep the patient well hydrated. * Monitor electrolytes. * The patient will be followed up closely. TID: [id number] RECEIPT: [id number]
[2024-10-22] VITALS: BP 126/75; PULSE 77; RESP 17; TEMP 98.1
[2024-10-22 04:00] VITALS: BP 120/69; PULSE 74; RESP 16; TEMP 97.9
[2024-10-22 04:59] LABS: NUCLEATED RED BLOOD CELLS 0.0 % (0.0-0.19); PLATELET COUNT (AUTO) 193.0 K/uL (130-400); RED BLOOD CELL COUNT(AUTO) 3.59 MIL/uL (4.00-5.50); RED CELL DISTRIBUTION WIDTH 13.6 % (11.0-15.5); WHITE BLOOD COUNT (AUTO) 7.5 K/uL (4.8-10.8)
[2024-10-22 05:19] LABS: ASPARTATE AMINOTRANSFERASE 22.0 U/L (10-37); CREATININE 0.8 mg/dL (0.5-1.0); GLOMERULAR FILTR. RATE CALC 93.0 mL/min (>90); GLUCOSE,RANDOM 74.0 mg/dL (70-105); SODIUM SERUM 138.0 mmol/L (136-145); TOTAL PROTEIN, SERUM 6.4 g/dL (6.0-8.3); UREA NITROGEN, BLOOD 6.0 mg/dL (7-18)
[2024-10-22 08:00] VITALS: BP 117/78; PULSE 86; RESP 18; TEMP 98; O2SAT 98
[2024-10-22 12:00] VITALS: BP 143/93; PULSE 81; RESP 18; TEMP 98.5
--- NOTE | 2024-10-22 13:11 | PN ---
[facility] PROGRESS NOTE Date of Service: Oct 22, 2024 Time of Service: 13:08 SUBJECTIVE: 10/22 patient remains admitted to the medical floor, blood pressure 143/93, afebrile, saturating normal on room air, hemoglobin 9.9, hematocrit 30.8, platelet count of 193. Chest x-ray no acute process. Infectious disease input noted and appreciated, no antibiotics needed at the present time, continue with the intermittent bladder catheterization. Continue to replace electrolytes IV per protocol. Follow amylase and lipase level, we will order CT of the abdomen and pelvis without contrast for further evaluation. Patient has been seen by Regino yost as an outpatient, according to her she has an appointment next week to see them, she has a history of GERD, we will request GI consultation as she may benefit from EGD during this admission. At the Time of my visit comfortably in bed, case discussed with the RN, no acute events overnight, no chest pain, no shortness a breath. REVIEW OF SYSTEMS CONSTITUTIONAL: Denies fevers, chills, or night sweats. No unintentional weight loss reported. NEUROLOGICAL: Denies headache, amaurosis fugax, motor weakness, sensory deficit, vertigo/spinning sensation, gait abnormalities, or tremors. ENT: No hearing loss, otalgia, otorrhea, rhinitis, rhinorrhea, hoarseness, or sore throat. CARDIOVASCULAR: Denies any exertional angina, dyspnea on exertion, orthopnea, paroxysmal nocturnal dyspnea, palpitations, life-threatening arrhythmias, claudication. PULMONARY: Denies any shortness of breath, cough, phlegm/sputum, hemoptysis, pleuritic chest pain. SLEEP: Denies morning headaches, daytime somnolence or napping. Denies difficulty falling asleep, staying asleep, waking from sleep. Denies knowledge of snoring. GASTROINTESTINAL: Denies any type of dysphagia to either liquids or solids. Denies nausea, vomiting, pyrosis, early satiety, abdominal pain, diarrhea, constipation, or changes in stool consistency or caliber. Denies coffee-ground emesis, hematemesis, hematochezia, or melanotic stools. GENITOURINARY: Denies frequency, urgency, nocturia, hematuria or incontinence (Storage/Irritative symptoms.) Low urinary stream, straining to void, urinary intermittency or hesitancy, splitting of the voiding stream, terminal dribbling. ENDOCRINOLOGIC: Denies polyuria, polydipsia, polyphagia or heat/cold intolerances. HEMATOLOGIC: Denies thrombophilia/previous clots, or coagulopathy/bleeding disorders. ONCOLOGIC: Denies personal history of malignancy. DERMATOLOGIC: Denies rashes or pruritus. PSYCHIATRIC: Denies any suicidal or homicidal ideation. Denies hallucinations. PHYSICAL EXAM GENERAL APPEARANCE: The patient is awake, alert, and oriented, in no acute cardiopulmonary distress. NEUROLOGICAL: Cranial nerves II-XII grossly intact. Motor is 5/5 in bilateral upper and lower extremities proximal to distal. No sensory deficits. HEENT: Face is symmetric. Pupils are equal and reactive. Extraocular movements are intact. NECK: Supple. No JVD. No thyromegaly. No submental, submandibular, pre- /postauricular, occipital or supraclavicular lymphadenopathy. CHEST: Normal chest expansion. No Telemetry. LUNGS: Absence of any rales, rhonchi or any wheezing. CARDIOVASCULAR: Regular. S1 and S2 normal. No appreciable rubs, murmurs or gallops. ABDOMEN: Soft, nontender, and nondistended. There is no rebound, voluntary guarding, or rigidity. : Deferred. No Carnes. EXTREMITIES: Non-edematous and not cyanotic. No clubbing. Good capillary refill. SKIN: No skin breakdown. Vital Signs (last 8hr) Date Time Temp Pulse Resp B/P (MAP) Pulse Ox O2 Delivery O2 Flow Rate FiO2 10/22/24 12:00 98.4 81 18 143/93 100 Room Air 21 10/22/24 08:00 98.1 86 18 117/78 97 Room Air LABS: Laboratory: Test 10/22/24 04:42 10/21/24 01:36 10/21/24 01:12 Range/Units White Blood Count 7.5 4.8-10.8 K/uL Red Blood Count 3.59 L 4.00-5.50 MIL/uL Hemoglobin 9.9 L 12.0-16.0 g/dL Hematocrit 30.8 L 36-48 % Mean Corpuscular Volume 85.8 79-99 fL Mean Corpuscular Hemoglobin 27.6 27.0-33.0 pg Mean Corpuscular Hemoglobin Concent 32.1 32.0-36.0 g/dL Red Cell Distribution Width 13.6 11.0-15.5 % Platelet Count 193 130-400 K/uL Mean Platelet Volume 11.3 H 7.5-10.5 fL Nucleated Red Blood Cells 0.0 0.0-0.19 % Sodium Level 138 136-145 mmol/L Potassium Level 4.0 3.5-5.1 mmol/L Chloride Level 106 101-111 mmol/L Carbon Dioxide Level 22 21-32 mmol/L Blood Urea Nitrogen 6 L 7-18 mg/dL Creatinine 0.8 0.5-1.0 mg/dL Glomerular Filtration Rate Calc 93 >90 mL/min Random Glucose 74 70-105 mg/dL Total Calcium 8.2 L 8.5-10.1 mg/dL Magnesium Level 1.80 1.80-2.40 mg/dL Total Bilirubin 0.5 0.2-1.0 mg/dL Aspartate Amino Transf (AST/SGOT) 22 10-37 U/L Alanine Aminotransferase (ALT/SGPT) 26 12-78 U/L Alkaline Phosphatase 138 H 50-136 U/L Total Protein 6.4 6.0-8.3 g/dL Albumin 3.4 L 3.5-5.0 g/dL Immature Granulocyte % (Auto) 0.3 0-1 % Neutrophils (%) (Auto) 71.1 40.0-77.0 % Lymphocytes (%) (Auto) 21.6 21.0-51.0 % Monocytes (%) (Auto) 5.4 3.0-13.0 % Eosinophils (%) (Auto) 1.2 0.0-8.0 % Basophils (%) (Auto) 0.4 0.0-5.0 % Neutrophils # (Auto) 5.2 1.8-7.7 K/uL Lymphocytes # (Auto) 1.6 1.0-4.8 K/uL Monocytes # (Auto) 0.4 0.1-1.0 K/uL Eosinophils # (Auto) 0.09 0.00-0.70 K/uL Basophils # (Auto) 0.03 0.00-0.20 K/uL Absolute Immature Granulocyte (auto 0.02 0-1 K/uL Urine Color LIGHT-YELLOW YELLOW Urine Appearance CLEAR CLEAR Urine pH 6.5 5.0-8.0 Urine Specific [place] 1.006 1.001-1.031 Urine Protein NEGATIVE NEGATIVE mg/dL Urine Glucose (UA) NEGATIVE NEGATIVE mg/dL Urine Ketones NEGATIVE NEGATIVE mg/dL Urine Occult Blood NEGATIVE NEGATIVE Urine Nitrate NEGATIVE NEGATIVE Urine Bilirubin NEGATIVE NEGATIVE mg/dL Urine Urobilinogen 0.2 0.2-1.0 mg/dL Urine Leukocyte Esterase NEGATIVE NEGATIVE Eliceo/uL Urine HCG, Qualitative NEGATIVE NEGATIVE Current Medications Medications (Trade) Dose Ordered Sig/Sandi Route PRN Reason Start Time Stop Time Status Last Admin Dose Admin Acetaminophen (TYLenol 650MG SUPPOSITORY) 650 mg Q6H PRN RC MILD PAIN (1-3) 10/21/24 03:00 10/21/24 09:18 DC Acetaminophen (TYLenol 650MG SUPPOSITORY) 650 mg Q6H PRN RC MILD PAIN (1-3) 10/21/24 09:30 11/20/24 09:29 Hydralazine HCl (APRESOLine 20MG INJ) 10 mg Q6H PRN IV For:SBP above 160;DBP above 90 10/21/24 03:00 10/21/24 09:19 DC Hydralazine HCl (APRESOLine 20MG INJ) 10 mg Q6H PRN IV For:SBP above 160;DBP above 90 10/21/24 09:30 11/20/24 09:29 Lactated Ringer's 1,000 ml @ 75 mls/hr [id number] IV 10/21/24 03:00 10/21/24 09:19 DC 10/21/24 03:17 75 MLS/HR Lactated Ringer's 1,000 ml @ 75 mls/hr [id number] IV 10/21/24 09:30 11/20/24 09:29 10/21/24 22:52 75 MLS/HR Levetiracetam 1000 mg/Sodium Chloride 100 ml @ 400 mls/hr Q12H IV 10/21/24 06:00 10/21/24 03:24 DC Levetiracetam 500 mg/Sodium Chloride 100 ml @ 400 mls/hr Q12H IV 10/21/24 03:30 11/20/24 03:29 10/22/24 03:35 400 MLS/HR Magnesium Sulfate 50 ml @ 0 mls/hr PROTOCOL PRN IV hypomagnesemia 10/21/24 11:00 11/20/24 10:59 10/22/24 05:51 25 MLS/HR Morphine Sulfate (morPHINE 2MG SYG) 2 mg Q4H PRN IVP SEVERE PAIN (7-10) 10/21/24 03:30 10/21/24 05:31 DC Morphine Sulfate (morPHINE 2MG SYG) 2 mg Q4H PRN IVP SEVERE PAIN (7-10) 10/21/24 06:00 10/21/24 09:19 DC 10/21/24 09:11 2 MG Morphine Sulfate (morPHINE 2MG SYG) 2 mg Q4H PRN IVP SEVERE PAIN (7-10) 10/21/24 09:30 10/28/24 09:29 10/22/24 08:25 2 MG Ondansetron HCl (zoFRAN 4MG INJ) 4 mg Q6H PRN IV NAUSEA/VOMITING 10/21/24 03:00 10/21/24 09:18 DC 10/21/24 09:18 4 MG Ondansetron HCl (zoFRAN 4MG INJ) 4 mg Q6H PRN IV NAUSEA/VOMITING 10/21/24 09:30 11/20/24 09:29 10/21/24 22:52 4 MG Pantoprazole Sodium (PROTonix 40MG INJ) 40 mg DAILY IV 10/21/24 09:00 10/21/24 09:08 DC Pantoprazole Sodium (PROTonix 40MG INJ) 40 mg DAILY IV 10/22/24 09:00 11/21/24 08:59 10/22/24 08:18 40 MG Pharmacy Profile Note (Lace Assessment) 1 each AD MISC 10/21/24 12:00 10/21/24 11:57 DC Potassium Chloride 100 ml @ 50 mls/hr AD PRN IV POTASSIUM PROTOCOL 10/21/24 03:30 10/21/24 09:19 DC Potassium Chloride 100 ml @ 50 mls/hr AD PRN IV POTASSIUM PROTOCOL 10/21/24 09:30 11/20/24 09:29 Potassium Chloride 100 ml @ 100 mls/hr Q1H IV 10/21/24 02:30 10/21/24 02:30 DC DIAGNOSTICS / RADIOLOGY: [ ] ASSESSMENT: hypokalemia,poa intractable n/v, poa Anxiety neurogenic bladder spinal bifida seizures depression recurrent utis PLAN: Infectious disease input noted and appreciated, no antibiotics needed at the present time, continue with the intermittent bladder catheterization. Continue to replace electrolytes IV per protocol. Follow amylase and lipase level, we will order CT of the abdomen and pelvis without contrast for further evaluation. Patient has been seen by Regino yost as an outpatient, according to her she has an appointment next week to see them, she has a history of GERD, we will request GI consultation as she may benefit from EGD during this admission. NEURO: Minimize central acting medications as possible. Fall Precautions. Well lighted room through the day and minimize interruptions through the night to prevent acute delirium. PULMONARY: Supplemental 02 as needed BiPAP as necessary, for respiratory distress Titrate Fio2 to keep Spo2 > or = 90% DuoNebs and CPT as needed IS hourly while awake for pulmonary hygiene prn Out of bed to chair as tolerated Maintain aspiration precautions at all times CARDIOVASCULAR: Follow hemodynamics. Vital signs per facility protocol GI & NUTRITION: Continue nutritional support Aspirations precautions Prokinetic agents and laxatives as needed KIDNEYS & ELECTROLYTES: Strict monitoring of intake and output Daily weights Avoid nephrotoxic agents Monitor electrolytes and replace as needed Goal urine output of 30mL/hr or 0.5mL/kg/hr Medications to be dosed according to renal function. Avoid contrast if possible ENDOCRINE: Maintain blood glucose between 100-180 at all times. Insulin sliding scale for blood glucose management Hypoglycemia and hyperglycemia protocol in place INFECTIOUS DISEASE: Trend temperature, WBC and procalcitonin level Follow cultures, deescalate antibiotics as soon as possible. Panculture if new onset fever HEMATOLOGY & COAGULATION: Monitor H&H. Keep Hgb > 7 Transfuse 1 unit of PRBC for Hgb < 7 Transfuse 1 pack of platelets of platelets < 20, 000 Watch for any signs and symptoms of bleeding SKIN: Pressure ulcer prevention per facility protocol Specialty mattress as needed ORTHO/REHAB Continue PT/OT PRN: MEDICATIONS Tylenol 650 mg po every 4 hrs for fever zofran 4 mg IV every 6 hrs for n/v Hydralazine 5 mg IV every 4 hrs systolic pressure > 160 bowel regiment: lactulose 20 gm PO BID PRN constipation Supportive measures: Continue GI and DVT prophylaxis Disposition: Pending improvement in clinical condition All questions answered time spent: > 35 min WARD KC MD Oct 22, 2024 13:11
--- NOTE | 2024-10-22 13:30 | NUR ---
ELA NOTE/ZOILA MAHMOOD received contact information from Zoila MATTHEWS For any urgent discharge needs, ELA is to email: [email or web address]. Addendum: 10/22/24 at 1332 by CRISTIN LEYVA CM Amended: Links added.
[2024-10-22 16:00] VITALS: BP 140/90; PULSE 97; RESP 18; TEMP 98.7
--- NOTE | 2024-10-22 16:12 | CONS ---
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 Per ER in [facility] and [facility] report patient has been treated with multiple antibiotics for a urinary tract infection. Patient was given Tygacil antibiotic and she reports this aggravated the abdominal pain which is associated with nausea and vomiting. On admission WBC of 7.4 10.4 hemoglobin platelets of 204. Hemoglobin today is 9.9 with platelets of 193. CMP significant for BUN of six calcium of 8.2, ALT, AST and bilirubin are normal. Alkaline phos is 138 and albumin of 3.4. Amylase 17 and lipase of 15. Chest x-ray shows right IJ central venous catheter tip projects over the right atrium with partially visualized [employer] shunt catheter tubing overlies the right chest. On exam patient reports she has been havin loose bloody stools, abdominal pain, nausea and vomiting worsening with each change of antibiotics. Recommendations for EGD to assess for any pathology discussed with patient. She agreed to proceed. ] Review of Systems: CONSTITUTIONAL: No malaise or change in sensation of wellbeing. ENMT: No rhinorrhea, otorrhea, sinus pain, ear ache. CARDIOVASCULAR: No angina, palpitations, orthopnea or paroxysmal dyspnea. RESPIRATORY: No SOB. GASTROINTESTINAL: No abdominal pain, nausea, vomiting, diarrhea, hematemesis, melena or change in the patient's habitual bowel movements consistency/number. GENITOURINARY: No dysuria, hematuria or change in bladder continence. MUSCULOSKELETAL: No new muscle pain or decrease in muscular strength. No new joint swelling, redness or tenderness. SKIN: No new rash. Past Medical History: [Anxiety, neurogenic bladder, spinal bifida, chronic pancreatitis, gastroparesis, seizures, depression, BP shunt, recent UTI positive for Klebsiella pneumoniae, recent fluid collection in the abdomen positive for Enterococcus faecalis, recurrent utis PAST SURGICAL HISTORY: [ J-tube placement, small bowel resection, av shunt placement, colostomy placem ent and closure, cholecystectomy, appendectomy ] PAST SOCIAL HISTORY: [ Patient denies any alcohol use, patient denies well. Patient denies drug illicit Coded Allergies: No Known Drug Allergies (Verified Allergy, Unknown, 07/12/20) Physical Exam: GEN: Awake, alert, oriented in person, time and place, and in no acute distress. HEENT: . No rhinorrhea. Oral pharyngeal mucosa is pink, moist and within normal limits. N CHEST: Respirations are regular CARDIAC: Heart sounds are regular ABD: Soft, non-tender and not distended. No peritoneal signs on palpation. EXT: No cyanosis or clubbing. No edema. SKIN: Intact. No rashes. JOINTS: No evidence of synovitis or acute arthritis. NEURO: Alert and oriented to name, place and person. Cranial nerve examination is unremarkable. No focal motor deficits. Normal speech. Strength is normal. Vital Sign (Last 24 Hours) 10/21/24 10/22/24 20:34 12:00 Temp 98.4 Pulse 81 Resp 18 B/P (MAP) 143/93 Pulse Ox 100 O2 Delivery Room Air O2 Flow Rate 0 FiO2 21 Laboratory: [ ] Laboratory: Test 10/22/24 04:42 10/21/24 01:36 10/21/24 01:12 Range/Units White Blood Count 7.5 4.8-10.8 K/uL Red Blood Count 3.59 L 4.00-5.50 MIL/uL Hemoglobin 9.9 L 12.0-16.0 g/dL Hematocrit 30.8 L 36-48 % Mean Corpuscular Volume 85.8 79-99 fL Mean Corpuscular Hemoglobin 27.6 27.0-33.0 pg Mean Corpuscular Hemoglobin Concent 32.1 32.0-36.0 g/dL Red Cell Distribution Width 13.6 11.0-15.5 % Platelet Count 193 130-400 K/uL Mean Platelet Volume 11.3 H 7.5-10.5 fL Nucleated Red Blood Cells 0.0 0.0-0.19 % Sodium Level 138 136-145 mmol/L Potassium Level 4.0 3.5-5.1 mmol/L Chloride Level 106 101-111 mmol/L Carbon Dioxide Level 22 21-32 mmol/L Blood Urea Nitrogen 6 L 7-18 mg/dL Creatinine 0.8 0.5-1.0 mg/dL Glomerular Filtration Rate Calc 93 >90 mL/min Random Glucose 74 70-105 mg/dL Total Calcium 8.2 L 8.5-10.1 mg/dL Magnesium Level 1.80 1.80-2.40 mg/dL Total Bilirubin 0.5 0.2-1.0 mg/dL Aspartate Amino Transf (AST/SGOT) 22 10-37 U/L Alanine Aminotransferase (ALT/SGPT) 26 12-78 U/L Alkaline Phosphatase 138 H 50-136 U/L Total Protein 6.4 6.0-8.3 g/dL Albumin 3.4 L 3.5-5.0 g/dL Amylase Level 17 L 25-115 U/L Lipase 15 L 16-77 U/L Immature Granulocyte % (Auto) 0.3 0-1 % Neutrophils (%) (Auto) 71.1 40.0-77.0 % Lymphocytes (%) (Auto) 21.6 21.0-51.0 % Monocytes (%) (Auto) 5.4 3.0-13.0 % Eosinophils (%) (Auto) 1.2 0.0-8.0 % Basophils (%) (Auto) 0.4 0.0-5.0 % Neutrophils # (Auto) 5.2 1.8-7.7 K/uL Lymphocytes # (Auto) 1.6 1.0-4.8 K/uL Monocytes # (Auto) 0.4 0.1-1.0 K/uL Eosinophils # (Auto) 0.09 0.00-0.70 K/uL Basophils # (Auto) 0.03 0.00-0.20 K/uL Absolute Immature Granulocyte (auto 0.02 0-1 K/uL Urine Color LIGHT-YELLOW YELLOW Urine Appearance CLEAR CLEAR Urine pH 6.5 5.0-8.0 Urine Specific [place] 1.006 1.001-1.031 Urine Protein NEGATIVE NEGATIVE mg/dL Urine Glucose (UA) NEGATIVE NEGATIVE mg/dL Urine Ketones NEGATIVE NEGATIVE mg/dL Urine Occult Blood NEGATIVE NEGATIVE Urine Nitrate NEGATIVE NEGATIVE Urine Bilirubin NEGATIVE NEGATIVE mg/dL Urine Urobilinogen 0.2 0.2-1.0 mg/dL Urine Leukocyte Esterase NEGATIVE NEGATIVE Eliceo/uL Urine HCG, Qualitative NEGATIVE NEGATIVE Current Medications Medications (Trade) Dose Ordered Sig/Sandi Route PRN Reason Start Time Stop Time Status Last Admin Dose Admin Acetaminophen (TYLenol 650MG SUPPOSITORY) 650 mg Q6H PRN RC MILD PAIN (1-3) 10/21/24 03:00 10/21/24 09:18 DC Acetaminophen (TYLenol 650MG SUPPOSITORY) 650 mg Q6H PRN RC MILD PAIN (1-3) 10/21/24 09:30 11/20/24 09:29 Alprazolam (XANax 1MG) 2 mg TID PRN PO ANXIETY 10/22/24 13:30 10/29/24 13:29 Home Med (Home Medication) (Linaclotide (Linzess) 290MCG CAP) DAILY PO 10/23/24 09:00 11/22/24 08:59 Home Med (Home Medication) (Plecanatide (Trulance) 3MG TAB) DAILY PO 10/23/24 09:00 11/22/24 08:59 Hydralazine HCl (APRESOLine 20MG INJ) 10 mg Q6H PRN IV For:SBP above 160;DBP above 90 10/21/24 03:00 10/21/24 09:19 DC Hydralazine HCl (APRESOLine 20MG INJ) 10 mg Q6H PRN IV For:SBP above 160;DBP above 90 10/21/24 09:30 11/20/24 09:29 Lactated Ringer's 1,000 ml @ 75 mls/hr [id number] IV 10/21/24 03:00 10/21/24 09:19 DC 10/21/24 03:17 75 MLS/HR Lactated Ringer's 1,000 ml @ 75 mls/hr [id number] IV 10/21/24 09:30 11/20/24 09:29 10/22/24 12:10 75 MLS/HR Levetiracetam (kepPRA 500 MG TABLET) 1,000 mg BID PO 10/22/24 13:30 11/21/24 13:29 10/22/24 14:02 1,000 MG Levetiracetam 1000 mg/Sodium Chloride 100 ml @ 400 mls/hr Q12H IV 10/21/24 06:00 10/21/24 03:24 DC Levetiracetam 500 mg/Sodium Chloride 100 ml @ 400 mls/hr Q12H IV 10/21/24 03:30 10/22/24 13:17 DC 10/22/24 03:35 400 MLS/HR Magnesium Sulfate 50 ml @ 0 mls/hr PROTOCOL PRN IV hypomagnesemia 10/21/24 11:00 11/20/24 10:59 10/22/24 05:51 25 MLS/HR Morphine Sulfate (morPHINE 2MG SYG) 2 mg Q4H PRN IVP SEVERE PAIN (7-10) 10/21/24 03:30 10/21/24 05:31 DC Morphine Sulfate (morPHINE 2MG SYG) 2 mg Q4H PRN IVP SEVERE PAIN (7-10) 10/21/24 06:00 10/21/24 09:19 DC 10/21/24 09:11 2 MG Morphine Sulfate (morPHINE 2MG SYG) 2 mg Q4H PRN IVP SEVERE PAIN (7-10) 10/21/24 09:30 10/28/24 09:29 10/22/24 14:03 2 MG Ondansetron HCl (zoFRAN 4MG INJ) 4 mg Q6H PRN IV NAUSEA/VOMITING 10/21/24 03:00 10/21/24 09:18 DC 10/21/24 09:18 4 MG Ondansetron HCl (zoFRAN 4MG INJ) 4 mg Q6H PRN IV NAUSEA/VOMITING 10/21/24 09:30 11/20/24 09:29 10/21/24 22:52 4 MG Pantoprazole Sodium (PROTonix 40MG INJ) 40 mg DAILY IV 10/21/24 09:00 10/21/24 09:08 DC Pantoprazole Sodium (PROTonix 40MG INJ) 40 mg DAILY IV 10/22/24 09:00 11/21/24 08:59 10/22/24 08:18 40 MG Pharmacy Profile Note (Lace Assessment) 1 each AD MISC 10/21/24 12:00 10/21/24 11:57 DC Potassium Chloride 100 ml @ 50 mls/hr AD PRN IV POTASSIUM PROTOCOL 10/21/24 03:30 10/21/24 09:19 DC Potassium Chloride 100 ml @ 50 mls/hr AD PRN IV POTASSIUM PROTOCOL 10/21/24 09:30 11/20/24 09:29 Potassium Chloride 100 ml @ 100 mls/hr Q1H IV 10/21/24 02:30 10/21/24 02:30 DC Sennosides (Senna) 1 tab DAILY PRN PO CONSTIPATION 10/22/24 13:30 11/21/24 13:29 Diagnostics / Radiology: [COPY/PASTE HERE IF NO REPORTS PLEASE DELETE SECTION] Assessment: [Abdominal pain Nausea and Vomitng diarrhea Spina Bifida Seizures BP shunt Recurrent UTI ] Plan: [NPO after midnight Plan for EGD in am Gi Prophylaxis PLease call with questions, concerns, and change in clinical status Thank you for this consult. ] MANN DENNIS NP Oct 22, 2024 16:12
[2024-10-22 20:00] VITALS: BP 117/64; PULSE 89; RESP 20; TEMP 98.8; O2SAT 96
--- NOTE | 2024-10-22 22:43 | PN ---
INFECTIOUS DISEASE PROGRESS NOTE Date of Service: Oct 22, 2024 SUBJECTIVE: [ ] PHYSICAL EXAM EYES: Anicteric. Pupils equal and reactive. HENT: No oral thrush seen, moist Oral mucosa NECK: Supple, no JVD or thyromegaly. LUNGS: Good air entry. No rales, no rhonchi. CARDIOVASCULAR: S1, S2 regular. No murmur heard. ABDOMEN: Soft, non tender, bowel sounds present, no organomegaly CENTRAL NERVOUS SYSTEM: Awake, alert, oriented x 3. No focal deficits. SKIN: No rashes, no swelling. LYMPHATICS: No peripheral lymphadenopathy MUSCULOSKELETAL: No joint swelling, erythema or tenderness. EXTREMITIES: No cyanosis or clubbing BACK: No deformity, no pressure ulcer. GENITOURINARY: No dysuria or hematuria Vital Sign (Last 12 Hours) 10/22/24 10/22/24 10/22/24 10/22/24 12:00 16:00 20:00 20:00 Temp 98.4 98.8 98.8 Pulse 81 97 89 Resp 18 18 20 B/P (MAP) 143/93 140/90 117/64 Pulse Ox 100 99 96 96 O2 Delivery Room Air Room Air Room Air* Room Air O2 Flow Rate 0 FiO2 21 21 LABS: Laboratory: Test 10/22/24 04:42 10/21/24 01:36 10/21/24 01:12 Range/Units White Blood Count 7.5 4.8-10.8 K/uL Red Blood Count 3.59 L 4.00-5.50 MIL/uL Hemoglobin 9.9 L 12.0-16.0 g/dL Hematocrit 30.8 L 36-48 % Mean Corpuscular Volume 85.8 79-99 fL Mean Corpuscular Hemoglobin 27.6 27.0-33.0 pg Mean Corpuscular Hemoglobin Concent 32.1 32.0-36.0 g/dL Red Cell Distribution Width 13.6 11.0-15.5 % Platelet Count 193 130-400 K/uL Mean Platelet Volume 11.3 H 7.5-10.5 fL Nucleated Red Blood Cells 0.0 0.0-0.19 % Sodium Level 138 136-145 mmol/L Potassium Level 4.0 3.5-5.1 mmol/L Chloride Level 106 101-111 mmol/L Carbon Dioxide Level 22 21-32 mmol/L Blood Urea Nitrogen 6 L 7-18 mg/dL Creatinine 0.8 0.5-1.0 mg/dL Glomerular Filtration Rate Calc 93 >90 mL/min Random Glucose 74 70-105 mg/dL Total Calcium 8.2 L 8.5-10.1 mg/dL Magnesium Level 1.80 1.80-2.40 mg/dL Total Bilirubin 0.5 0.2-1.0 mg/dL Aspartate Amino Transf (AST/SGOT) 22 10-37 U/L Alanine Aminotransferase (ALT/SGPT) 26 12-78 U/L Alkaline Phosphatase 138 H 50-136 U/L Total Protein 6.4 6.0-8.3 g/dL Albumin 3.4 L 3.5-5.0 g/dL Amylase Level 17 L 25-115 U/L Lipase 15 L 16-77 U/L Immature Granulocyte % (Auto) 0.3 0-1 % Neutrophils (%) (Auto) 71.1 40.0-77.0 % Lymphocytes (%) (Auto) 21.6 21.0-51.0 % Monocytes (%) (Auto) 5.4 3.0-13.0 % Eosinophils (%) (Auto) 1.2 0.0-8.0 % Basophils (%) (Auto) 0.4 0.0-5.0 % Neutrophils # (Auto) 5.2 1.8-7.7 K/uL Lymphocytes # (Auto) 1.6 1.0-4.8 K/uL Monocytes # (Auto) 0.4 0.1-1.0 K/uL Eosinophils # (Auto) 0.09 0.00-0.70 K/uL Basophils # (Auto) 0.03 0.00-0.20 K/uL Absolute Immature Granulocyte (auto 0.02 0-1 K/uL Urine Color LIGHT-YELLOW YELLOW Urine Appearance CLEAR CLEAR Urine pH 6.5 5.0-8.0 Urine Specific [place] 1.006 1.001-1.031 Urine Protein NEGATIVE NEGATIVE mg/dL Urine Glucose (UA) NEGATIVE NEGATIVE mg/dL Urine Ketones NEGATIVE NEGATIVE mg/dL Urine Occult Blood NEGATIVE NEGATIVE Urine Nitrate NEGATIVE NEGATIVE Urine Bilirubin NEGATIVE NEGATIVE mg/dL Urine Urobilinogen 0.2 0.2-1.0 mg/dL Urine Leukocyte Esterase NEGATIVE NEGATIVE [place]ice[place]/uL Urine HCG, Qualitative NEGATIVE NEGATIVE DIAGNOSTICS / RADIOLOGY: [ ] ASSESSMENT: PLAN: Will sign off at this time. Reconsult if needed. No antibiotics in the at this time. This case was reviewed and discussed with my supervising physician and the above assessment and plan was formulated and agreed upon. ATTESTATION BY PHYSICIAN I have seen and examined the patient. I reviewed the documentation, medical decision making, and treatment plan as noted by the mid-level provider above. I agree with the findings and plan of care. EDDIE SINCLAIR MD, MIRTA L [facility] Oct 22, 2024 22:43
[2024-10-23] VITALS (24 sets, daily range): BP systolic 105–164; BP diastolic 14–102; PULSE 64–115; RESP 16–24; TEMP 97.5–98.8; O2SAT 98–99
[2024-10-23 04:46] LABS: NUCLEATED RED BLOOD CELLS 0.0 % (0.0-0.19); PLATELET COUNT (AUTO) 206.0 K/uL (130-400); RED BLOOD CELL COUNT(AUTO) 3.8 MIL/uL (4.00-5.50); RED CELL DISTRIBUTION WIDTH 13.6 % (11.0-15.5); WHITE BLOOD COUNT (AUTO) 8.2 K/uL (4.8-10.8)
[2024-10-23 05:10] LABS: ASPARTATE AMINOTRANSFERASE 19.0 U/L (10-37); CREATININE 0.8 mg/dL (0.5-1.0); GLOMERULAR FILTR. RATE CALC 93.0 mL/min (>90); GLUCOSE,RANDOM 67.0 mg/dL (70-105); SODIUM SERUM 134.0 mmol/L (136-145); TOTAL PROTEIN, SERUM 6.8 g/dL (6.0-8.3); UREA NITROGEN, BLOOD 9.0 mg/dL (7-18)
[2024-10-23] MEDS: LINACLOTIDE 290 MCG PO SCH (08:06)
[2024-10-23] MEDS: PLECANATIDE 3 MG PO SCH (08:06)
--- NOTE | 2024-10-23 09:46 | HMCIMG ---
EXAM: CT Abdomen and Pelvis without IV contrast CLINICAL HISTORY: Abdominal pain. TECHNIQUE: Thin collimated axial CT images of the abdomen and pelvis were obtained, with sagittal and coronal reformatted images also submitted. A CT scan is done according to ALARA (As Low As Reasonably Achievable). CONTRAST: None. COMPARISON: CT scan of the abdomen and pelvis, dated 12/25/2023. FINDINGS: Unremarkable visualized lung parenchyma. There is no focal abnormality appreciated within the liver, pancreas, spleen, or adrenals. Status post cholecystectomy. 5 mm parenchymal calcification in the upper pole of the left kidney. There is no obvious bowel wall thickening. Bowel loops are normal in caliber without evidence of obstruction or ileus. The appendix is unremarkable. The urinary bladder is distended with moderate wall thickening inferiorly. Unremarkable uterus and ovaries. Moderate fluid in the pelvis. Anterior abdominal wall surgery. There is a ventriculoperitoneal shunt with the tip in the left upper abdomen anteriorly. There is a catheter in the pelvis with a tip in the pouch of Albert. No lymphadenopathy. No pneumoperitoneum. No gross abnormality in the abdominal vessels. There is no acute osseous abnormality. IMPRESSIONS: 1. Moderate fluid in the pelvis. Catheter in the pelvis with a tip in the pouch of Albert. 2. Ventricular peritoneal shunt with the tip in the left upper abdomen anteriorly. 3. Cystitis. 4. No bowel obstruction or inflammation. Normal appendix. 5. No urinary calculi. No hydronephrosis /Otilio
--- NOTE | 2024-10-23 12:53 | DS ---
Discharge Summary Hospital Course Summary: The patient is a very pleasant 43-year-old female, presented to the hospital 10/21/2024, chief complaint of mild abdominal discomfort, located to the epigastric area, burning in nature, on and off, present for the last few days. While in the emergency room, the patient noted to have a potassium of 3.1, CBC and urinalysis were unremarkable. Emergency room physician request the patient to be admitted with a diagnosis of hypokalemia and intractable nausea and vomiting During the course of the hospitalization abuse admitted to the medical floor, supportive care with IV fluids, pain medication and replacement of the electrolytes IV per protocol was done. Amylase and lipase level were done, unremarkable. CT of the abdomen and pelvis without contrast was done, finding discussed with the patient, reported as follows: 1. Moderate fluid in the pelvis. Catheter in the pelvis with a tip in the pouch of Albert. 2. Ventricular peritoneal shunt with the tip in the left upper abdomen anteriorly. 3. Cystitis. 4. No bowel obstruction or inflammation. Normal appendix. 5. No urinary calculi. No hydronephrosis Consultation with the GI was done, patient underwent EGD 10/23/2024 with the following findings: -medium size hiatal hernia -a small amount of food (residue) in the stomach. -erythematous mucosa in the gastric body and antrum. Biopsied. -normal examined duodenum. Findings discussed with the patient, per GI advanced diet as tolerated, continue current medical management, return to GI clinic in one week for pathology results. Infectious Disease consultation requested, no need for antibiotics. Signed off. Plan for the patient to be discharged home. 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 Adv ised to return to hospital if condition changes. Patient agreed with plan and understood the information provided. Home Medications: Reported Medications Potassium Chloride (Potassium Chloride) 20 Meq Tab.er.prt, 20 MEQ PO DAILYDINNER 10/21/24 Omeprazole (Omeprazole) 40 Mg Capsule.dr, 40 MG PO DAILY, CAP 10/21/24 Omeprazole (Omeprazole) 40 Mg Capsule.dr, 1 CAP PO DAILY for 30 Days, #30 CAP 0 Refills 10/21/24 Fe Fumarate/FA/Mv, Min Comb#15 (Centratex Capsule) 106 Mg Iron-1 Mg Capsule, 1 EACH PO DAILY, CAP 07/25/24 Sennosides (Senna Laxative) 8.6 Mg Tablet, 8.6 MG PO DAILY PRN for CONSTIPATION, TAB 07/25/24 Alprazolam (Alprazolam) 2 Mg Tab.rapdis, 1 TAB PO TID PRN for ANXIETY for 30 Days, #90 TAB 0 Refills 07/25/24 Levetiracetam (Levetiracetam) 1,000 Mg Tablet, 1 TAB PO BID for SEIZURES 07/25/24 Plecanatide (Trulance) 3 Mg Tablet, 1 TAB PO DAILY for 30 Days, #30 TAB 0 Refills 07/17/24 Linaclotide (Linzess) 290 Mcg Capsule, 1 CAP PO DAILY for 30 Days, #30 CAP 0 Refills 07/17/24 Discontinued Reported Medications Lisinopril (Lisinopril) 10 Mg Tablet, 1 TAB PO DAILY for 30 Days, #30 TAB 0 Refills 07/17/24 Dicyclomine HCl (Dicyclomine HCl) 10 Mg Capsule, 10 MG PO Q4HPRN, CAP 03/04/24 Discontinued Scripts Doxycycline Hyclate (Doxycycline Hyclate) 100 Mg Capsule, 1 CAP PO BID for 10 Days, #20 CAP 0 Refills Prov:JEANE LEWIS MD 07/29/24 Time spent arranging discharge: 31-60 minutes WARD KC MD Oct 23, 2024 12:53
[2024-10-24 04:00] VITALS: BP 111/70; PULSE 69; RESP 20; TEMP 98
--- NOTE | 2024-10-24 07:48 | PN ---
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 Per ER in [facility] report patient has been treated with multiple antibiotics for a urinary tract infection. Patient was given Tygacil antibiotic and she reports this aggravated the abdominal pain which is associated with nausea and vomiting. On admission WBC of 7.4 10.4 hemoglobin platelets of 204. Hemoglobin today is 9.9 with platelets of 193. CMP significant for BUN of six calcium of 8.2, ALT, AST and bilirubin are normal. Alkaline phos is 138 and albumin of 3.4. Amylase 17 and lipase of 15. Chest x-ray shows right IJ central venous catheter tip projects over the right atrium with partially visualized HOMEWORKER shunt catheter tubing overlies the right chest. On exam patient reports she has been havin loose bloody stools, abdominal pain, nausea and vomiting worsening with each change of antibiotics. Recommendations for EGD to assess for any pathology discussed with patient. She agreed to proceed. 10/24/24: EGD findings: Mild gastritis, s/p gastric biopsies. Small amount of retained food consistent with know gastroparesis. EGD results given to patient. Recommended she f/u at [facility] in 1 week for pathology results and further management. She reports she has a PPI at home. Advised to continue taking medication as prescribed, avoid foods that aggravate symptoms, and keep office ppt. She agreed. ] Review of Systems: CONSTITUTIONAL: No malaise or change in sensation of wellbeing. ENMT: No rhinorrhea, otorrhea, sinus pain, ear ache. CARDIOVASCULAR: No angina, palpitations, orthopnea or paroxysmal dyspnea. RESPIRATORY: No SOB. GASTROINTESTINAL: No abdominal pain, nausea, vomiting, diarrhea, hematemesis, melena or change in the patient's habitual bowel movements consistency/number. GENITOURINARY: No dysuria, hematuria or change in bladder continence. MUSCULOSKELETAL: No new muscle pain or decrease in muscular strength. No new joint swelling, redness or tenderness. SKIN: No new rash. Physical Exam: GEN: Awake, alert, oriented in person, time and place, and in no acute distress. HEENT: . No rhinorrhea. Oral pharyngeal mucosa is pink, moist and within normal limits. CHEST: Respirations are regular CARDIAC: Heart sounds are regular ABD: Soft, non-tender and not distended. No peritoneal signs on palpation. EXT: No cyanosis or clubbing. No edema. SKIN: Intact. No rashes. JOINTS: No evidence of synovitis or acute arthritis. NEURO: Alert and oriented to name, place and person. Cranial nerve examination is unremarkable. No focal motor deficits. Normal speech. Strength is normal. Vital Signs (last 8hr) Date Time Temp Pulse Resp B/P (MAP) Pulse Ox O2 Delivery O2 Flow Rate FiO2 10/24/24 04:00 98.1 69 20 111/70 99 Room Air Laboratory: [ ] Laboratory: Test 10/23/24 18:00 10/23/24 04:39 Range/Units Group A Streptococcus Rapid negative NEGATIVE White Blood Count 8.2 4.8-10.8 K/uL Red Blood Count 3.80 L 4.00-5.50 MIL/uL Hemoglobin 10.4 L 12.0-16.0 g/dL Hematocrit 33.1 L 36-48 % Mean Corpuscular Volume 87.1 79-99 fL Mean Corpuscular Hemoglobin 27.4 27.0-33.0 pg Mean Corpuscular Hemoglobin Concent 31.4 L 32.0-36.0 g/dL Red Cell Distribution Width 13.6 11.0-15.5 % Platelet Count 206 130-400 K/uL Mean Platelet Volume 11.4 H 7.5-10.5 fL Nucleated Red Blood Cells 0.0 0.0-0.19 % Sodium Level 134 L 136-145 mmol/L Potassium Level 4.6 3.5-5.1 mmol/L Chloride Level 101 101-111 mmol/L Carbon Dioxide Level 16 L 21-32 mmol/L Blood Urea Nitrogen 9 7-18 mg/dL Creatinine 0.8 0.5-1.0 mg/dL Glomerular Filtration Rate Calc 93 >90 mL/min Random Glucose 67 L 70-105 mg/dL Total Calcium 8.4 L 8.5-10.1 mg/dL Magnesium Level 1.80 1.80-2.40 mg/dL Total Bilirubin 0.7 # 0.2-1.0 mg/dL Aspartate Amino Transf (AST/SGOT) 19 10-37 U/L Alanine Aminotransferase (ALT/SGPT) 20 # 12-78 U/L Alkaline Phosphatase 145 H 50-136 U/L Total Protein 6.8 6.0-8.3 g/dL Albumin 3.5 3.5-5.0 g/dL Current Medications Medications (Trade) Dose Ordered Sig/Sandi Route PRN Reason Start Time Stop Time Status Last Admin Dose Admin Acetaminophen (TYLenol 650MG SUPPOSITORY) 650 mg Q6H PRN RC MILD PAIN (1-3) 10/21/24 03:00 10/21/24 09:18 DC Acetaminophen (TYLenol 650MG SUPPOSITORY) 650 mg Q6H PRN RC MILD PAIN (1-3) 10/21/24 09:30 11/20/24 09:29 Alprazolam (XANax 1MG) 2 mg TID PRN PO ANXIETY 10/22/24 13:30 10/29/24 13:29 10/23/24 20:56 2 MG Home Med (Home Medication) (Linaclotide (Linzess) 290MCG CAP) DAILY PO 10/23/24 09:00 11/22/24 08:59 Home Med (Home Medication) (Plecanatide (Trulance) 3MG TAB) DAILY PO 10/23/24 09:00 11/22/24 08:59 Hydralazine HCl (APRESOLine 20MG INJ) 5 mg Q6H PRN IV For:SBP above 160;DBP above 90 10/23/24 15:30 11/22/24 15:29 Hydralazine HCl (APRESOLine 20MG INJ) 10 mg Q6H PRN IV For:SBP above 160;DBP above 90 10/21/24 03:00 10/21/24 09:19 DC Hydralazine HCl (APRESOLine 20MG INJ) 10 mg Q6H PRN IV For:SBP above 160;DBP above 90 10/21/24 09:30 10/23/24 09:32 DC Lactated Ringer's 1,000 ml @ 75 mls/hr [id number] IV 10/21/24 03:00 10/21/24 09:19 DC 10/21/24 03:17 75 MLS/HR Lactated Ringer's 1,000 ml @ 75 mls/hr [id number] IV 10/21/24 09:30 10/23/24 16:51 DC 10/22/24 20:09 75 MLS/HR Levetiracetam (kepPRA 500 MG TABLET) 1,000 mg BID PO 10/22/24 13:30 11/21/24 13:29 10/23/24 20:57 1,000 MG Levetiracetam 1000 mg/Sodium Chloride 100 ml @ 400 mls/hr Q12H IV 10/21/24 06:00 10/21/24 03:24 DC Levetiracetam 500 mg/Sodium Chloride 100 ml @ 400 mls/hr Q12H IV 10/21/24 03:30 10/22/24 13:17 DC 10/22/24 03:35 400 MLS/HR Magnesium Sulfate 50 ml @ 0 mls/hr PROTOCOL PRN IV hypomagnesemia 10/21/24 11:00 11/20/24 10:59 10/23/24 05:39 25 MLS/HR Metoprolol Tartrate (loprESSOR) 12.5 mg Q12H PO 10/23/24 10:00 11/22/24 09:59 10/23/24 20:56 12.5 MG Morphine Sulfate (morPHINE 2MG SYG) 2 mg Q4H PRN IVP SEVERE PAIN (7-10) 10/21/24 03:30 10/21/24 05:31 DC Morphine Sulfate (morPHINE 2MG SYG) 2 mg Q4H PRN IVP SEVERE PAIN (7-10) 10/21/24 06:00 10/21/24 09:19 DC 10/21/24 09:11 2 MG Morphine Sulfate (morPHINE 2MG SYG) 2 mg Q4H PRN IVP SEVERE PAIN (7-10) 10/21/24 09:30 10/28/24 09:29 10/24/24 04:23 2 MG Ondansetron HCl (zoFRAN 4MG INJ) 4 mg Q6H PRN IV NAUSEA/VOMITING 10/21/24 03:00 10/21/24 09:18 DC 10/21/24 09:18 4 MG Ondansetron HCl (zoFRAN 4MG INJ) 4 mg Q6H PRN IV NAUSEA/VOMITING 10/21/24 09:30 11/20/24 09:29 10/21/24 22:52 4 MG Pantoprazole Sodium (PROTonix 40MG INJ) 40 mg DAILY IV 10/21/24 09:00 10/21/24 09:08 DC Pantoprazole Sodium (PROTonix 40MG INJ) 40 mg DAILY IV 10/22/24 09:00 11/21/24 08:59 10/23/24 08:40 40 MG Pharmacy Profile Note (Lace Assessment) 1 each AD MISC 10/21/24 12:00 10/21/24 11:57 DC Potassium Chloride 100 ml @ 50 mls/hr AD PRN IV POTASSIUM PROTOCOL 10/21/24 03:30 10/21/24 09:19 DC Potassium Chloride 100 ml @ 50 mls/hr AD PRN IV POTASSIUM PROTOCOL 10/21/24 09:30 11/20/24 09:29 Potassium Chloride 100 ml @ 100 mls/hr Q1H IV 10/21/24 02:30 10/21/24 02:30 DC Sennosides (Senna) 1 tab DAILY PRN PO CONSTIPATION 10/22/24 13:30 11/21/24 13:29 Diagnostics / Radiology: [COPY/PASTE HERE IF NO REPORTS PLEASE DELETE SECTION] Assessment: [Abdominal pain Nausea and Vomitng diarrhea Spina Bifida Seizures BP shunt Recurrent UTI ] Plan: Continue with Gi Prophylaxis No further GI interventions at this time. Avoid spicy, greasy, acidic foods Avoid foods with tomatos, caffeine, chocolate, and carbonated beverages. Patient is to f/u at [facility] on 10/29/24 Please call with questions, concerns, and change in clinical status Thank you for this consult. ] MANN DENNIS NP Oct 24, 2024 07:48
[2024-10-24 08:00] VITALS: BP 103/65; PULSE 77; RESP 17; TEMP 98
[2024-10-24] MEDS: SENNOSIDES 8.6 MG TABLET PO PRN (08:33)
[2024-10-24 12:08] LABS: IMMATURE GRANULOCYTE ABSOLUTE 0.02 K/uL (0-1); NUCLEATED RED BLOOD CELLS 0.0 % (0.0-0.19); PLATELET COUNT (AUTO) 220 K/uL (130-400); RED BLOOD CELL COUNT(AUTO) 3.70 MIL/uL (4.00-5.50); RED CELL DISTRIBUTION WIDTH 13.6 % (11.0-15.5); WHITE BLOOD COUNT (AUTO) 7.8 K/uL (4.8-10.8)
[2024-10-24 12:27] LABS: CREATININE 0.8 mg/dL (0.5-1.0); GLOMERULAR FILTR. RATE CALC 93.0 mL/min (>90); GLUCOSE,RANDOM 72.0 mg/dL (70-105); SODIUM SERUM 137.0 mmol/L (136-145); UREA NITROGEN, BLOOD 9.0 mg/dL (7-18)
[2024-10-24 12:31] LABS: ASPARTATE AMINOTRANSFERASE 15.0 U/L (10-37); TOTAL PROTEIN, SERUM 6.6 g/dL (6.0-8.3)
== END 2024-10-24 15:30 | disposition home or self-care (01) | DRG 254 ==
LOC: EDH 00:27 → EDHIP 00:28 → EDH 03:39 → 3BH 04:04
PROVIDERS: ADMIT Internal Medicine; ATTEND Internal Medicine
PROC: 0DB68ZX Excision of Stomach, Via Natural or Artificial Opening Endoscopic, Diagnostic (ICD-10-PCS; principal; 2024-10-23)
PROC: 0DB78ZX Excision of Stomach, Pylorus, Via Natural or Artificial Opening Endoscopic, Diagnostic (ICD-10-PCS; 2024-10-23)
DX: K44.9 Diaphragmatic hernia without obstruction or gangrene (principal); R56.9 Unspecified convulsions; N30.90 Cystitis, unspecified without hematuria; E87.6 Hypokalemia; K31.89 Other diseases of stomach and duodenum; F32.A Depression, unspecified; F41.9 Anxiety disorder, unspecified; K31.84 Gastroparesis; K92.1 Melena; K86.1 Other chronic pancreatitis; Z16.12 Extended spectrum beta lactamase (ESBL) resistance; N31.9 Neuromuscular dysfunction of bladder, unspecified; Z87.440 Personal history of urinary (tract) infections; Z93.3 Colostomy status; Z51.5 Encounter for palliative care; Z80.49 Family history of malignant neoplasm of other genital organs; Z81.8 Family history of other mental and behavioral disorders; Z82.0 Family history of epilepsy and other diseases of the nervous system; Z82.3 Family history of stroke; Z82.49 Family history of ischemic heart disease and other diseases of the circulatory system; Z82.5 Family history of asthma and other chronic lower respiratory diseases; Z83.3 Family history of diabetes mellitus; Z98.2 Presence of cerebrospinal fluid drainage device
CPT/HCPCS: 36415; 43239; 71045; 74176; 80048; 80053; 80177; 81003; 81025; 82150; 83690; 83735; 85025; 85027; 87880; 96374; 96375; 99285; A4606; G0378; J1171; J1953; J2270; J2405; J2470; J2704; J3475; J3480; J7030; J7120; A4215; A4222; A4223; A4620; J3490

== ENCOUNTER 2024-10-28 05:06 | Emergency (ER) | payer MEDICAID ==
[~2024-10-28] VITALS: Ht 147.3 cm; Wt 59.9 kg
[~2024-10-28 05:06] MED LIST changes: -DICY-20 PO; -DOXY100C5 PO; -LISI10TA24 PO; +OMEP40CA21 PO; +POTA-202 PO
--- NOTE | 2024-10-28 05:56 | NUR ---
PATIENT REPORTS HAVING A PICC LINE IN PLACE. UPON ASSESSMENT, PICC LINE NOTED TO RIGHT UPPER SUBCALVICULAR AREA. SITE CLEAN, DRY, AND INTACT WITH NO SIGNS OF ERYTHEMA, DRAINAGE, OR SWELLING. PATIENT DENIES ANY PAIN OR DISCOMFORT TO SITE.
[2024-10-28 06:20] LABS: IMMATURE GRANULOCYTE ABSOLUTE 0.06 K/uL (0-1); NUCLEATED RED BLOOD CELLS 0.0 % (0.0-0.19); PLATELET COUNT (AUTO) 279 K/uL (130-400); RED BLOOD CELL COUNT(AUTO) 3.76 MIL/uL (4.00-5.50); RED CELL DISTRIBUTION WIDTH 14.4 % (11.0-15.5); WHITE BLOOD COUNT (AUTO) 9.1 K/uL (4.8-10.8)
[2024-10-28] MEDS: LACTATED RINGERS 1000ML 1,000 ML IV ONE (06:25)
[2024-10-28 06:33] LABS: ASPARTATE AMINOTRANSFERASE 16.0 U/L (10-37); CREATINE KINASE, TOTAL 39.0 U/L (21-232); CREATININE 0.7 mg/dL (0.5-1.0); GLOMERULAR FILTR. RATE CALC 109.0 mL/min (>90); GLUCOSE,RANDOM 105.0 mg/dL (70-105); SODIUM SERUM 139.0 mmol/L (136-145); TOTAL PROTEIN, SERUM 6.9 g/dL (6.0-8.3); UREA NITROGEN, BLOOD 10.0 mg/dL (7-18)
[2024-10-28 06:45] LABS: APPEARANCE,URINE CLOUDY (CLEAR); GLUCOSE, URINE (UA) NEGATIVE (NEGATIVE); LEUKOCYTE ESTERASE ,URINE 25 Leu/uL (NEGATIVE); NITRATE,URINE NEGATIVE (NEGATIVE); OCCULT BLOOD,URINE NEGATIVE (NEGATIVE)
[2024-10-28 06:49] LABS: ADD UA MICROSCOPIC YES
--- NOTE | 2024-10-28 06:51 | ERN ---
General Chief Complaint: Abdominal Pain Stated Complaint: C/O ABD PAIN W/DIARRHEA Time Seen by MD: 05:31 History of Present Illness Initial Comments Mrs Fnog is a 43-year-old female with a history of seizure disorder, spina bifida who presents today with a chief complaint of abdominal pain with diarrhea. Patient apparently could not have an EGD last week and ultimately decided to start taking multiple laxatives. Patient has had multiple bouts of diarrhea. She has also been very dehydrated in his had increased amounts of abdominal pain. Allergies: Coded Allergies: No Known Drug Allergies (Verified Allergy, Unknown, 07/12/20) Home Meds Reported Medications Potassium Chloride (Potassium Chloride) 20 Meq Tab.er.prt, 20 MEQ PO DAILYDINNER 10/21/24 Omeprazole (Omeprazole) 40 Mg Capsule.dr, 40 MG PO DAILY, CAP 10/21/24 Omeprazole (Omeprazole) 40 Mg Capsule.dr, 1 CAP PO DAILY for 30 Days, #30 CAP 0 Refills 10/21/24 Fe Fumarate/FA/Mv, Min Comb#15 (Centratex Capsule) 106 Mg Iron-1 Mg Capsule, 1 EACH PO DAILY, CAP 07/25/24 Sennosides (Senna Laxative) 8.6 Mg Tablet, 8.6 MG PO DAILY PRN for CONSTIPATION, TAB 07/25/24 Alprazolam (Alprazolam) 2 Mg Tab.rapdis, 1 TAB PO TID PRN for ANXIETY for 30 Days, #90 TAB 0 Refills 07/25/24 Levetiracetam (Levetiracetam) 1,000 Mg Tablet, 1 TAB PO BID for SEIZURES 07/25/24 Plecanatide (Trulance) 3 Mg Tablet, 1 TAB PO DAILY for 30 Days, #30 TAB 0 Refills 07/17/24 Linaclotide (Linzess) 290 Mcg Capsule, 1 CAP PO DAILY for 30 Days, #30 CAP 0 Refills 07/17/24 Discontinued Reported Medications Lisinopril (Lisinopril) 10 Mg Tablet, 1 TAB PO DAILY for 30 Days, #30 TAB 0 Refills 07/17/24 Dicyclomine HCl (Dicyclomine HCl) 10 Mg Capsule, 10 MG PO Q4HPRN, CAP 03/04/24 Discontinued Scripts Doxycycline Hyclate (Doxycycline Hyclate) 100 Mg Capsule, 1 CAP PO BID for 10 Days, #20 CAP 0 Refills Prov:JEANE LEWIS MD 07/29/24 Past Medical History Past Medical History: Pancreatitis, Seizure, Other Medical History Other: HX OF BLADDER INFECTIONS Past Surgical History: Other Surgical History Other: PICC LINE TO RT SIDE OF CHEST Family History Family History: Negative Social History Social History: Negative, Lives with family, Other Female( History) History: Not Applicable : 0 ROS Dictation Constitutional: Negative for fever,chills, and weight loss Eyes: Negative for injury, pain,redness, and discharge ENT: Negative for injury,pain or swelling Cardiovascular: Negative for chest pain, palpitations, and edema Respiratory: Negative for shortness of breath, cough, and wheezing, Abdomen/GI: Positive for diarrhea and abdominal pain Back: Negative for injury and pain : Negative for injury, bleeding and discharge MS/Extremity: Negative for injury and deformity Skin: Negative for rash, and discoloration Neuro: Negative for headache, weakness, numbness, tingling, and seizure Psych: Negative for suicide ideation, homicidal ideation, and hallucinations Physical Exam Physical Exam Dictation General: awake, alert, NAD Head/Face: Normocephalic, atraumatic Eyes: PERRL, EOMI, vision at baseline ENT: oral cavity clear, TMs clear, no signs of infection Neck: Trachea midline, supple, no nuchal rigidity Cardiovascular: RRR, normal S1/S2, No MRGs, no JVD Respiratory: CTAB, no respiratory distress, No rales or wheezes Abdomen: Pain with palpation in the epigastric region Skin: Warm, dry, normal turgor, no rash MS/Extremity: Pulses equal, no cyanosis, neurovascular intact, FROM Neuro: COAx4, GCS 15, strength 5/5, CN 2-12 intact, normal cerebellar exam, normal gait, Psych: Normal behavior, mood, and affect normal Results Laboratory and Microbiology Lab and Micro Result Laboratory Tests Test 10/28/24 05:53 White Blood Count 9.1 K/uL (4.8-10.8) Red Blood Count 3.76 MIL/uL (4.00-5.50) L Hemoglobin 10.6 g/dL (12.0-16.0) L Hematocrit 32.5 % (36-48) L Mean Corpuscular Volume 86.4 fL (79-99) Mean Corpuscular Hemoglobin 28.2 pg (27.0-33.0) Mean Corpuscular Hemoglobin Concent 32.6 g/dL (32.0-36.0) Red Cell Distribution Width 14.4 % (11.0-15.5) Platelet Count 279 K/uL (130-400) Mean Platelet Volume 11.3 fL (7.5-10.5) H Immature Granulocyte % (Auto) 0.7 % (0-1) Neutrophils (%) (Auto) 80.3 % (40.0-77.0) H Lymphocytes (%) (Auto) 12.4 % (21.0-51.0) L Monocytes (%) (Auto) 4.9 % (3.0-13.0) Eosinophils (%) (Auto) 1.3 % (0.0-8.0) Basophils (%) (Auto) 0.4 % (0.0-5.0) Neutrophils # (Auto) 7.3 K/uL (1.8-7.7) Lymphocytes # (Auto) 1.1 K/uL (1.0-4.8) Monocytes # (Auto) 0.4 K/uL (0.1-1.0) Eosinophils # (Auto) 0.12 K/uL (0.00-0.70) Basophils # (Auto) 0.04 K/uL (0.00-0.20) Absolute Immature Granulocyte (auto 0.06 K/uL (0-1) Nucleated Red Blood Cells 0.0 % (0.0-0.19) MDM We will transfer care to oncoming physician MDM: Differential diagnosis: Rationale: Tests considered and ordered secondary to shared decision making include: Previous outside records reviewed: Old ER visits. Risk of complication and/or morbidity or mortality of patient management: None Medications-Per medication reconciliation Need for hospitalization: Patient does not meet criteria for hospitalization. Need for emergency major/minor surgery: No There are no social concerns with this patient. Prescription drug management Prescriptions will include symptomatic care Patient's prior external medical records from other ER visits were reviewed by me as indicated. Prior testing and results from previous visits were reviewed. Prior tests were taken into account with medical decision making and resource utilization, independent historian/historians were used to obtain complete medical history. I independently interpreted the test that were performed, results were reviewed by me and considered findings on radiology if ordered. Medical management and examination interpretation discussions were had by me with other qualified healthcare professionals as indicated for the patient's care. ED Course Orders Procedure Category Date Status Time Cbc With Differential LAB 10/28/24 Complete 05:37 Comprehensive LAB 10/28/24 In Process Metabolic Panel 05:37 Amylase LAB 10/28/24 In Process 05:37 Troponin I High LAB 10/28/24 In Process Sensitivity 05:37 Urinalysis Profile LAB 10/28/24 In Process 05:37 Lactated Ringers PHA 10/28/24 Complete 1000ml (Lactated 06:00 Morphine 2mg Syg PHA 10/28/24 Complete (Morphine 2mg Syg) 06:00 Creatine Kinase, Total LAB 10/28/24 In Process 05:37 Lipase LAB 10/28/24 In Process 05:37 Current Medications Medications (Trade) Dose Ordered Sig/Sandi Route PRN Reason Start Time Stop Time Status Last Admin Dose Admin Lactated Ringer's 1,000 ml @ 0 mls/hr ONCE ONCE IV 10/28/24 06:00 10/28/24 06:01 DC 10/28/24 06:25 Morphine Sulfate (morPHINE 2MG SYG) 2 mg ONCE ONCE IVP 10/28/24 06:00 10/28/24 06:01 DC 10/28/24 06:26 Vital Signs Date Time Temp Pulse Resp B/P (MAP) Pulse Ox O2 Delivery O2 Flow Rate FiO2 10/28/24 05:56 99.1 97 17 118/79 99 Room Air* 0 21 10/28/24 05:07 98.2 102 20 118/82 97 Room Air DX & DISP Disposition: Other(Comment) Departure Impression: Primary Impression: Abdominal pain Condition: Stable Referrals: FRANKI VILLAFANA MD (PCP) VERO PYLE MD Oct 28, 2024 06:51
--- NOTE | 2024-10-28 07:03 | NUR ---
REPORT GIVEN TO ALBER CHAPMAN AT THIS TIME
[2024-10-28 07:22] LABS: WBC CLUMP FEW /HPF (0-1)
[2024-10-28 07:30] LABS: SQUAMOUS EPITHELIAL CELL,UR Moderate /HPF (0-2)
[2024-10-28] MEDS: MAGNESIUM 2GM PREMIX 50ML 50 ML IV STA (08:52)
[2024-10-28] MEDS: MAGNESIUM OXIDE 400 MG TABLET PO ONE (09:05)
[2024-10-28] MEDS ORDERED: LACT-356 PO (09:16)
[2024-10-28] MEDS ORDERED: CEPH500B PO (09:16)
[2024-10-28] MEDS ORDERED: PANT40TA55 PO (09:16)
[2024-10-28 09:27] VITALS: BP 114/72; PULSE 82; RESP 16; TEMP 98.4; O2SAT 98
== END 2024-10-28 09:30 | disposition home or self-care (01) ==
LOC: EDH 05:06
DX: A08.4 Viral intestinal infection, unspecified (principal); E87.6 Hypokalemia; E83.42 Hypomagnesemia; N39.0 Urinary tract infection, site not specified; R19.7 Diarrhea, unspecified; Z79.899 Other long term (current) drug therapy
CPT/HCPCS: 99285; 96374; 96361; 82150; 82550; 83735; 84484; 80053; 83690; 85025; 87086 ×2; 87186; 81001; 36415; 96376; J7120; J2270 ×2; J3475

== ENCOUNTER 2024-10-29 01:29 | Observation (INO) | payer MEDICAID ==
[~2024-10-29] VITALS: Ht 147.3 cm; Wt 60.8 kg
[~2024-10-29 01:29] MED LIST changes: +CEPH500B PO; +LACT-356 PO; +PANT40TA55 PO
[2024-10-29 02:21] LABS: IMMATURE GRANULOCYTE ABSOLUTE 0.03 K/uL (0-1); NUCLEATED RED BLOOD CELLS 0.0 % (0.0-0.19); PLATELET COUNT (AUTO) 255 K/uL (130-400); RED BLOOD CELL COUNT(AUTO) 3.74 MIL/uL (4.00-5.50); RED CELL DISTRIBUTION WIDTH 14.5 % (11.0-15.5); WHITE BLOOD COUNT (AUTO) 7.0 K/uL (4.8-10.8)
[2024-10-29] MEDS: LACTATED RINGERS 1000ML 1,000 ML IV ONE (02:26)
[2024-10-29 02:34] LABS: ASPARTATE AMINOTRANSFERASE 23.0 U/L (10-37); CREATININE 0.7 mg/dL (0.5-1.0); GLOMERULAR FILTR. RATE CALC 109.0 mL/min (>90); GLUCOSE,RANDOM 103.0 mg/dL (70-105); SODIUM SERUM 139.0 mmol/L (136-145); TOTAL PROTEIN, SERUM 6.9 g/dL (6.0-8.3); UREA NITROGEN, BLOOD 5.0 mg/dL (7-18)
[2024-10-29 02:55] LABS: ADD UA MICROSCOPIC NO; APPEARANCE,URINE CLEAR (CLEAR); GLUCOSE, URINE (UA) NEGATIVE (NEGATIVE); LEUKOCYTE ESTERASE ,URINE NEGATIVE Leu/uL (NEGATIVE); NITRATE,URINE NEGATIVE (NEGATIVE); OCCULT BLOOD,URINE NEGATIVE (NEGATIVE)
[2024-10-29] MEDS: PoTASSium chl 10% ELIXIR 20MEQ 20 MEQ/15 ML UDCUP PO ONE (02:56)
[2024-10-29 02:59] LABS: HCG,QUALITATIVE URINE NEGATIVE (NEGATIVE)
--- NOTE | 2024-10-29 03:46 | HMCIMG ---
EXAM: CT Abdomen and Pelvis without IV contrast CLINICAL HISTORY: Abdominal pain. TECHNIQUE: Thin collimated axial CT images of the abdomen and pelvis were obtained with sagittal and coronal reformatted images also submitted. CT scan is done according to ALARA (As Low As Reasonably Achievable). CONTRAST: None. COMPARISON: CT abdomen and pelvis dated 10/22/2024. FINDINGS: The included lungs are clear. Status post cholecystectomy. No focal abnormality within the liver, pancreas, spleen, or adrenals. 0.5 cm nonobstructive calculus versus focal cortical calcification at the left renal upper pole. Mild hydroureteronephrosis is present bilaterally. The urinary bladder is suboptimally distended with questionable chronic cystitis. Questionable encircling object around the urinary bladder outlet, which is connected with the tubular system that terminates around the right side of the labia majora. Partially visualized ventriculoperitoneal shunt on the right side that terminates at the left anterior subdiaphragmatic region. The uterus and ovaries are within normal limits. Small free fluid in the pelvis. No obvious bowel wall thickening, dilatation, or obstruction. The appendix is not visualized. Limited evaluation of the abdominal vessels due to lack of intravenous contrast. No abdominal aortic aneurysm. Pathological lymphadenopathy in the abdomen or pelvis. No pneumoperitoneum is evident. No acute fracture. Questionable spinal canal widening around the lumbosacral junction with questionable isodense CSF density intraspinal lesion in this area, recommend a contrast-enhanced MRI of the lumbosacral spine for an optimal evaluation. IMPRESSIONS: 0.5 cm nonobstructive calculus versus focal cortical calcification at the left renal upper pole. Mild hydroureteronephrosis is present bilaterally, likely secondary to chronic bladder outlet obstruction. Chronic urinary bladder cystitis. Questionable encircling object around the urinary bladder outlet, which is connected with the tubular system that terminates around the right side of the labia majora. Small free fluid in the pelvis. Partially visualized ventriculoperitoneal shunt on the right side that terminates at the left anterior subdiaphragmatic region. Questionable spinal canal widening around the lumbosacral junction with questionable isodense CSF density intraspinal lesion in this area, recommend a contrast-enhanced MRI of the lumbosacral spine for an optimal evaluation. No acute or new findings compared to the previous CT dated 10/22/2024. /[place]
[2024-10-29] MEDS: NS-20 MEQ KCL 1000ML 1,000 ML IV SCH (03:52)
--- NOTE | 2024-10-29 03:54 | ERN ---
General Chief Complaint: Abdominal Pain Stated Complaint: SEVERE HYPOKALEMIA, DIARRHEA Time Seen by MD: 01:36 History of Present Illness Initial Comments Mrs Fong is a 43-year-old female history of anxiety, depression, seizure disorder, spina bifida who presents today with increased abdominal pain and diarrhea. Patient was here yesterday with similar symptoms and reports that she has not improved. Patient does come in feeling weak and tired Allergies: Coded Allergies: No Known Drug Allergies (Verified Allergy, Unknown, 07/12/20) Home Meds Active Scripts Lactobacillus Acidophilus (Acidophilus Probiotic) 500 Million Cell Capsule, 1 CAP PO BID for 10 Days, #20 CAP 0 Refills Prov:JOSE ALDRIDGE MD 10/28/24 Pantoprazole Sodium (Protonix) 40 Mg Ectab, 1 TAB PO DAILY for 30 Days, #30 TAB 0 Refills Prov:JOSE ALDRIDGE MD 10/28/24 Cephalexin Monohydrate (Keflex) 500 Mg Cap, 1 CAP PO BID for 10 Days, #20 CAP 0 Refills Prov:JOSE ALDRIDGE MD 10/28/24 Reported Medications Potassium Chloride (Potassium Chloride) 20 Meq Tab.er.prt, 20 MEQ PO DAILYDINNER 10/21/24 Omeprazole (Omeprazole) 40 Mg Capsule.dr, 40 MG PO DAILY, CAP 10/21/24 Omeprazole (Omeprazole) 40 Mg Capsule.dr, 1 CAP PO DAILY for 30 Days, #30 CAP 0 Refills 10/21/24 Fe Fumarate/FA/Mv, Min Comb#15 (Centratex Capsule) 106 Mg Iron-1 Mg Capsule, 1 EACH PO DAILY, CAP 07/25/24 Sennosides (Senna Laxative) 8.6 Mg Tablet, 8.6 MG PO DAILY PRN for CONSTIPATION, TAB 07/25/24 Alprazolam (Alprazolam) 2 Mg Tab.rapdis, 1 TAB PO TID PRN for ANXIETY for 30 Days, #90 TAB 0 Refills 07/25/24 Levetiracetam (Levetiracetam) 1,000 Mg Tablet, 1 TAB PO BID for SEIZURES 07/25/24 Plecanatide (Trulance) 3 Mg Tablet, 1 TAB PO DAILY for 30 Days, #30 TAB 0 Refills 07/17/24 Linaclotide (Linzess) 290 Mcg Capsule, 1 CAP PO DAILY for 30 Days, #30 CAP 0 Refills 07/17/24 Past Medical History Past Medical History: Hepatitis Medical History Other: SPINAL BIFIDA; CHRONIC UTI Past Surgical History: Other Surgical History Other: PICC LINE TO RT SIDE OF CHEST Family History Family History: Negative Social History Social History: Negative, Lives with family, Other Female( History) History: Not Applicable : 0 ROS Dictation Constitutional: Negative for fever,chills, and weight loss Eyes: Negative for injury, pain,redness, and discharge ENT: Negative for injury,pain or swelling Cardiovascular: Negative for chest pain, palpitations, and edema Respiratory: Negative for shortness of breath, cough, and wheezing, Abdomen/GI: Positive for abdominal pain Back: Negative for injury and pain : Negative for injury, bleeding and discharge MS/Extremity: Negative for injury and deformity Skin: Negative for rash, and discoloration Neuro: Negative for headache, weakness, numbness, tingling, and seizure Psych: Negative for suicide ideation, homicidal ideation, and hallucinations Physical Exam Physical Exam Dictation General: awake, alert, NAD Head/Face: Normocephalic, atraumatic Eyes: PERRL, EOMI, vision at baseline ENT: oral cavity clear, TMs clear, no signs of infection Neck: Trachea midline, supple, no nuchal rigidity Cardiovascular: RRR, normal S1/S2, No MRGs, no JVD Respiratory: CTAB, no respiratory distress, No rales or wheezes Abdomen: Positive for abdominal pain with palpation in the right and left lower quadrants Skin: Warm, dry, normal turgor, no rash MS/Extremity: Pulses equal, no cyanosis, neurovascular intact, FROM Neuro: COAx4, GCS 15, strength 5/5, CN 2-12 intact, normal cerebellar exam, normal gait, Psych: Normal behavior, mood, and affect normal Results Laboratory and Microbiology Lab and Micro Result Laboratory Tests Test 10/29/24 02:13 10/29/24 02:37 White Blood Count 7.0 K/uL (4.8-10.8) Red Blood Count 3.74 MIL/uL (4.00-5.50) L Hemoglobin 10.5 g/dL (12.0-16.0) L Hematocrit 32.4 % (36-48) L Mean Corpuscular Volume 86.6 fL (79-99) Mean Corpuscular Hemoglobin 28.1 pg (27.0-33.0) Mean Corpuscular Hemoglobin Concent 32.4 g/dL (32.0-36.0) Red Cell Distribution Width 14.5 % (11.0-15.5) Platelet Count 255 K/uL (130-400) Mean Platelet Volume 10.7 fL (7.5-10.5) H Immature Granulocyte % (Auto) 0.4 % (0-1) Neutrophils (%) (Auto) 71.4 % (40.0-77.0) Lymphocytes (%) (Auto) 18.8 % (21.0-51.0) L Monocytes (%) (Auto) 6.7 % (3.0-13.0) Eosinophils (%) (Auto) 2.3 % (0.0-8.0) Basophils (%) (Auto) 0.4 % (0.0-5.0) Neutrophils # (Auto) 5.0 K/uL (1.8-7.7) Lymphocytes # (Auto) 1.3 K/uL (1.0-4.8) Monocytes # (Auto) 0.5 K/uL (0.1-1.0) Eosinophils # (Auto) 0.16 K/uL (0.00-0.70) Basophils # (Auto) 0.03 K/uL (0.00-0.20) Absolute Immature Granulocyte (auto 0.03 K/uL (0-1) Nucleated Red Blood Cells 0.0 % (0.0-0.19) Sodium Level 139 mmol/L (136-145) Potassium Level 2.8 mmol/L (3.5-5.1) *L Chloride Level 101 mmol/L (101-111) Carbon Dioxide Level 29 mmol/L (21-32) Blood Urea Nitrogen 5 mg/dL (7-18) L Creatinine 0.7 mg/dL (0.5-1.0) Glomerular Filtration Rate Calc 109 mL/min (>90) Random Glucose 103 mg/dL (70-105) Total Calcium 8.3 mg/dL (8.5-10.1) L Total Bilirubin 0.3 mg/dL (0.2-1.0) # Aspartate Amino Transf (AST/SGOT) 23 U/L (10-37) Alanine Aminotransferase (ALT/SGPT) 29 U/L (12-78) Alkaline Phosphatase 125 U/L (50-136) Total Protein 6.9 g/dL (6.0-8.3) Albumin 3.6 g/dL (3.5-5.0) Amylase Level 19 U/L (25-115) #L Lipase 25 U/L (16-77) Urine Color LIGHT-YELLOW (YELLOW) Urine Appearance CLEAR (CLEAR) Urine pH 6.5 (5.0-8.0) Urine Specific [place] 1.005 (1.001-1.031) Urine Protein NEGATIVE mg/dL (NEGATIVE) Urine Glucose (UA) NEGATIVE mg/dL (NEGATIVE) Urine Ketones NEGATIVE mg/dL (NEGATIVE) Urine Occult Blood NEGATIVE (NEGATIVE) Urine Nitrate NEGATIVE (NEGATIVE) Urine Bilirubin NEGATIVE mg/dL (NEGATIVE) Urine Urobilinogen 0.2 mg/dL (0.2-1.0) Urine Leukocyte Esterase NEGATIVE [place]ice[place]/uL Urine HCG, Qualitative NEGATIVE (NEGATIVE) MDM Patient does have low potassium that will need to be replaced in we will need to be admitted for further evaluation and care. MDM: Differential diagnosis: Hypokalemia Rationale: Tests considered and ordered secondary to shared decision making include: labs, ECG and radiology Previous outside records reviewed: Old ER visits. Risk of complication and/or morbidity or mortality of patient management: None Medications-Per medication reconciliation Need for hospitalization: Patient does meet criteria for hospitalization. Need for emergency major/minor surgery: No There are no social concerns with this patient. Prescription drug management Prescriptions will include symptomatic care Patient's prior external medical records from other ER visits were reviewed by me as indicated. Prior testing and results from previous visits were reviewed. Prior tests were taken into account with medical decision making and resource utilization, independent historian/historians were used to obtain complete medical history. I independently interpreted the test that were performed, results were reviewed by me and considered findings on radiology if ordered. Medical management and examination interpretation discussions were had by me with other qualified healthcare professionals as indicated for the patient's care. ED Course Orders Procedure Category Date Status Time Cbc With Differential LAB 10/29/24 Complete 02:01 Comprehensive LAB 10/29/24 Complete Metabolic Panel 02:01 Amylase LAB 10/29/24 Complete 02:01 ,Urine Test LAB 10/29/24 Complete 02:01 Urinalysis Profile LAB 10/29/24 Complete 02:01 Lactated Ringers PHA 10/29/24 Complete 1000ml (Lactated 02:30 Morphine 4mg Syg PHA 10/29/24 Complete (Morphine 4mg Syg) 02:30 Ct Abdomen/Pelvis W/O CT 10/29/24 Resulted Contrast 02:01 Lipase LAB 10/29/24 Complete 02:01 Potassium Chl 10% PHA 10/29/24 Complete Elixir 20meq (Kcl 10% 03:00 Current Medications Medications (Trade) Dose Ordered Sig/Sandi Route PRN Reason Start Time Stop Time Status Last Admin Dose Admin Lactated Ringer's 1,000 ml @ 0 mls/hr ONCE ONCE IV 10/29/24 02:30 10/29/24 02:31 DC 10/29/24 02:26 Morphine Sulfate (morPHINE 4MG SYG) 4 mg ONCE ONCE IVP 10/29/24 02:30 10/29/24 02:31 DC 10/29/24 02:25 Potassium Chloride (KCl 10% Elixir 20meq/15ml) 40 meq ONCE ONCE PO 10/29/24 03:00 10/29/24 03:01 DC 10/29/24 02:56 Vital Signs Date Time Temp Pulse Resp B/P (MAP) Pulse Ox O2 Delivery O2 Flow Rate FiO2 10/29/24 02:26 99.0 92 18 121/77 99 Room Air* 0 21 10/29/24 01:31 98.2 85 20 103/80 97 Room Air DX & DISP Disposition: Inpatient Departure Impression: Primary Impression: Hypokalemia Condition: Stable Referrals: FRANKI VILLAFANA MD (PCP) VERO PYLE MD Oct 29, 2024 03:54
[2024-10-29] MEDS ORDERED: PoTASSium chloRIDE 20MEQ ER 20 MEQ ERTAB PO PRN (04:00)
[2024-10-29] MEDS ORDERED: MAGNESIUM 2GM PREMIX 50ML 50 ML IV PRN (04:00)
[2024-10-29] MEDS ORDERED: DEXTROSE 50%-WATER 50 ML DISP.SYRIN IV PRN (04:00)
[2024-10-29] MEDS ORDERED: PoTASSium chl 10% ELIXIR 20MEQ 20 MEQ/15 ML UDCUP PO PRN (04:00)
[2024-10-29] MEDS ORDERED: GLUCAGON 1MG KIT 1 MG ML IM PRN (04:00)
--- NOTE | 2024-10-29 04:45 | HP ---
[facility] Date of Service: Oct 29, 2024 Time of Service: 04:45 Attending/supervising physicians: Dr. Miller and Dr. Lizbeth Perez HISTORY OF PRESENT ILLNESS: Mrs Fong is a 43-year-old female history of anxiety, depression, seizure disorder, spina bifida, chronic abdominal pain who presented to ED for evaluation of increased abdominal pain and diarrhea. The patient reports that she chronically uses laxatives. She states that this time that she use laxatives she had worsening diarrhea. Patient was here yesterday with similar symptoms and reports that she has not improved. Patient does come in feeling weak and tired. The patient was found to have a potassium of 2.8. UA negative for leuk EST and nitrites. CT abdomen and pelvis, impression: 0.5 cm nonobstructive calculus versus focal cortical calcification at the left renal upper pole. Mild hydroureteronephrosis is present bilaterally, likely secondary to chronic bladder outlet obstruction. Chronic urinary bladder cystitis. Questionable encircling object around the urinary bladder outlet, which is connected with the tubular system that terminates around the right side of the labia majora. Small free fluid in the pelvis. Partially visualized ventriculoperitoneal shunt on the right side that terminates at the left anterior subdiaphragmatic region. Questionable spinal canal widening around the lumbosacral junction with questio nable isodense CSF density intraspinal lesion in this area, recommend a contrast-enhanced MRI of the lumbosacral spine for an optimal evaluation. No acute or new findings compared to the previous CT dated 10/22/2024. The patient was treated in ED with potassium 40 mEq, morphine 4 mg, and LR 1 L bolus. ED provider requested patient to be admitted to the hospital with the diagnosis of hypokalemia. I assessed the patient in ED 14. The patient appeared comfortable, breathing was even, unlabored, in no distress. The patient reports abdominal pain and is requesting Dilaudid. She states that she takes Dilaudid at home that is provided by her pain management physician. I informed her of labs, diagnostics, and plan of care. She verbalizes understanding and is in agreement with the plan. Plan and assessment are listed below. REVIEW OF SYSTEMS 12-point ROS reviewed with patient. All pertinent positives mentioned above. Otherwise negative, noncontributory, non-pertinent. PAST MEDICAL HISTORY: As mentioned above PAST SURGICAL HISTORY: PICC line to right chest PAST SOCIAL HISTORY: Denied alcohol, tobacco, illicit drug use FAMILY HISTORY: Negative Coded Allergies: No Known Drug Allergies (Verified Allergy, Unknown, 07/12/20) PHYSICAL EXAM GENERAL APPEARANCE: The patient is awake, alert, and oriented, in no acute cardiopulmonary distress. NEUROLOGICAL: Cranial nerves II-XII grossly intact. Motor is 5/5 in bilateral upper and lower extremities proximal to distal. No sensory deficits. HEENT: Face is symmetric. Pupils are equal and reactive. Extraocular movements are intact. NECK: Supple. No JVD. No thyromegaly. No submental, submandibular, pre- /postauricular, occipital or supraclavicular lymphadenopathy. CHEST: Normal chest expansion. No Telemetry. LUNGS: Absence of any rales, rhonchi or any wheezing. CARDIOVASCULAR: Regular. S1 and S2 normal. No appreciable rubs, murmurs or gallops. ABDOMEN: Soft, nontender, and nondistended. Well-healed vertical scar. There is no rebound, voluntary guarding, or rigidity. : Deferred. No Carnes. EXTREMITIES: Non-edematous and not cyanotic. No clubbing. Good capillary refill. SKIN: No skin breakdown. Vital Sign (Last 24 Hours) 10/29/24 02:26 Temp 99.0 Pulse 92 Resp 18 B/P (MAP) 121/77 Pulse Ox 99 O2 Delivery Room Air* O2 Flow Rate 0 FiO2 21 LABS: Laboratory: Test 10/29/24 02:37 10/29/24 02:13 Range/Units Urine Color LIGHT-YELLOW YELLOW Urine Appearance CLEAR CLEAR Urine pH 6.5 5.0-8.0 Urine Specific [place] 1.005 1.001-1.031 Urine Protein NEGATIVE NEGATIVE mg/dL Urine Glucose (UA) NEGATIVE NEGATIVE mg/dL Urine Ketones NEGATIVE NEGATIVE mg/dL Urine Occult Blood NEGATIVE NEGATIVE Urine Nitrate NEGATIVE NEGATIVE Urine Bilirubin NEGATIVE NEGATIVE mg/dL Urine Urobilinogen 0.2 0.2-1.0 mg/dL Urine Leukocyte Esterase NEGATIVE NEGATIVE Eliceo/uL Urine HCG, Qualitative NEGATIVE NEGATIVE White Blood Count 7.0 4.8-10.8 K/uL Red Blood Count 3.74 L 4.00-5.50 MIL/uL Hemoglobin 10.5 L 12.0-16.0 g/dL Hematocrit 32.4 L 36-48 % Mean Corpuscular Volume 86.6 79-99 fL Mean Corpuscular Hemoglobin 28.1 27.0-33.0 pg Mean Corpuscular Hemoglobin Concent 32.4 32.0-36.0 g/dL Red Cell Distribution Width 14.5 11.0-15.5 % Platelet Count 255 130-400 K/uL Mean Platelet Volume 10.7 H 7.5-10.5 fL Immature Granulocyte % (Auto) 0.4 0-1 % Neutrophils (%) (Auto) 71.4 40.0-77.0 % Lymphocytes (%) (Auto) 18.8 L 21.0-51.0 % Monocytes (%) (Auto) 6.7 3.0-13.0 % Eosinophils (%) (Auto) 2.3 0.0-8.0 % Basophils (%) (Auto) 0.4 0.0-5.0 % Neutrophils # (Auto) 5.0 1.8-7.7 K/uL Lymphocytes # (Auto) 1.3 1.0-4.8 K/uL Monocytes # (Auto) 0.5 0.1-1.0 K/uL Eosinophils # (Auto) 0.16 0.00-0.70 K/uL Basophils # (Auto) 0.03 0.00-0.20 K/uL Absolute Immature Granulocyte (auto 0.03 0-1 K/uL Nucleated Red Blood Cells 0.0 0.0-0.19 % Sodium Level 139 136-145 mmol/L Potassium Level 2.8 *L 3.5-5.1 mmol/L Chloride Level 101 101-111 mmol/L Carbon Dioxide Level 29 21-32 mmol/L Blood Urea Nitrogen 5 L 7-18 mg/dL Creatinine 0.7 0.5-1.0 mg/dL Glomerular Filtration Rate Calc 109 >90 mL/min Random Glucose 103 70-105 mg/dL Total Calcium 8.3 L 8.5-10.1 mg/dL Total Bilirubin 0.3 # 0.2-1.0 mg/dL Aspartate Amino Transf (AST/SGOT) 23 10-37 U/L Alanine Aminotransferase (ALT/SGPT) 29 12-78 U/L Alkaline Phosphatase 125 50-136 U/L Total Protein 6.9 6.0-8.3 g/dL Albumin 3.6 3.5-5.0 g/dL Amylase Level 19 #L 25-115 U/L Lipase 25 16-77 U/L Current Medications Medications (Trade) Dose Ordered Sig/Sandi Route PRN Reason Start Time Stop Time Status Last Admin Dose Admin Acetaminophen (TYLenol 325MG TAB) 650 mg Q6H PRN PO FEVER/MILD PAIN LEVEL 1-3 10/29/24 04:00 11/28/24 03:59 Acetaminophen (TYLenol 650MG SUPPOSITORY) 650 mg Q6H PRN RC FEVER / MILD PAIN 1-3 IF NPO 10/29/24 04:00 11/28/24 03:59 Dextrose (D50w) 50 ml AD PRN IV HYPOGLYCEMIA PROTOCOL 10/29/24 04:00 11/28/24 03:59 Enoxaparin Sodium (Lovenox) 30 mg DAILY SQ 10/29/24 09:00 11/28/24 08:59 Glucagon (Glucagon 1mg Kit) 1 mg AD PRN IM HYPOGLYCEMIA PROTOCOL 10/29/24 04:00 11/28/24 03:59 Insulin Human Regular (humuLIN R 100 UNIT/ML 3ML) INSULIN SLIDING SCAL... ACHS SQ 10/29/24 07:30 11/28/24 07:29 Labetalol HCl (TRANdate 20MG SYG) 10 mg Q2H PRN IV SBP GREATER THAN 160 10/29/24 04:00 11/28/24 03:59 Magnesium Sulfate 50 ml @ 0 mls/hr PROTOCOL PRN IV MAGNESIUM PROTOCOL 10/29/24 04:00 11/28/24 03:59 Ondansetron HCl (zoFRAN 4MG INJ) 4 mg Q6H PRN IVP NAUSEA/VOMITING 10/29/24 04:00 11/28/24 03:59 Potassium Chloride/Sodium Chloride 1,000 ml @ 100 mls/hr Q10H IV 10/29/24 04:00 11/28/24 03:59 10/29/24 03:52 100 MLS/HR Potassium Chloride 100 ml @ 100 mls/hr AD PRN IV POTASSIUM PROTOCOL 10/29/24 04:00 11/28/24 03:59 Potassium Chloride (K-Dur/Klor-Con 20meq) 20 meq AD PRN PO POTASSIUM PROTOCOL 10/29/24 04:00 11/28/24 03:59 Potassium Chloride (KCl 10% Elixir 20meq/15ml) 20 meq AD PRN PO POTASSIUM PROTOCOL 10/29/24 04:00 11/28/24 03:59 Temazepam (restORIL 15 MG CAP) 15 mg HS PRN PO INSOMNIA/SLEEP 10/29/24 04:00 11/28/24 03:59 DIAGNOSTICS / RADIOLOGY: [ ] ASSESSMENT: Severe hyponatremia 2/2 diarrhea due to chronic laxative use Acute on chronic abdominal pain, POA 0.5 cm nonobstructive calculus versus focal cortical calcification at the left renal upper pole, per CT 10/29/2024 Mild hydroureteronephrosis is present bilaterally, likely secondary to chronic bladder outlet obstruction, per CT on 10/29/2024 Chronic urinary bladder cystitis, per CT on 10/29/2024 Small free fluid in the pelvis, per CT on 10/29/2024 Partially visualized ventriculoperitoneal shunt on the right side that terminates at the left anterior subdiaphragmatic region, per CT on 10/29/2024 Anemia chronic disease Drug-seeking behavior Chronic narcotic use Chronic problem list: Anxiety, depression, seizure disorder, spina bifida, chronic abdominal pain, hepatitis, hx PICC line to right chest, chronic UTI and self catheterization PLAN: -Admit patient to medical floor. -Start NS with 40 mEq of potassium IV at 100 mL an hour. -Monitor electrolytes and treat accordingly. -Imodium 4 mg p.o. now then Imodium 2 mg p.o. t.i.d. PRN. -Send stool for c-diff and cultures. -Monitor renal and liver function. -P.r.n. medications for: Pain management, nausea, vomiting, diarrhea, hypertension. -Glucometer checks AC & HS needed with insulin regular sliding scale coverage as needed. -Blood pressure checks every 4 hours and as needed. -Reconcile home medications once available. - Monitor renal and liver function. -Monitor electrolytes and treat accordingly PRN -AM labs. -GI and DVT prophylaxis -Further plan/orders per hospitalization course. ADVANCED CARE PLANNING 1. Which of the following were discussed? Hospice Care - No Therapeutic options - Yes Advance Directives - Yes Other discussions - 2. Discussed with who? The patient 3. Voluntary nature of this service was explained to the patient? Yes 4. Amount of time spent - __ Over 35 minutes 5. Reviewed by Physician? (if this service was performed by [facility]) Yes ATTESTATION BY PHYSICIAN I reviewed the documentation, medical decision making, and treatment plan as noted by the CHASITY. I agree with the findings and plan of care. ISAAC MOREIRA [facility] Oct 29, 2024 04:45
[2024-10-29] MEDS: LOPERAMIDE 1 MG/7.5 ML UDCUP PO ONE (04:59)
[2024-10-29] MEDS ORDERED: LOPERAMIDE 1 MG/7.5 ML UDCUP PO PRN (05:00)
--- NOTE | 2024-10-29 05:25 | NUR ---
NIL HOME MEDS AVAIL AT BEDSIDE
[2024-10-29 07:26] LABS: NUCLEATED RED BLOOD CELLS 0.0 % (0.0-0.19); PLATELET COUNT (AUTO) 239.0 K/uL (130-400); RED BLOOD CELL COUNT(AUTO) 3.63 MIL/uL (4.00-5.50); RED CELL DISTRIBUTION WIDTH 14.6 % (11.0-15.5); WHITE BLOOD COUNT (AUTO) 6.4 K/uL (4.8-10.8)
[2024-10-29 07:34] LABS: CREATININE 0.6 mg/dL (0.5-1.0); GLOMERULAR FILTR. RATE CALC 113.0 mL/min (>90); GLUCOSE,RANDOM 90.0 mg/dL (70-105); SODIUM SERUM 141.0 mmol/L (136-145); UREA NITROGEN, BLOOD 4.0 mg/dL (7-18)
[2024-10-29 07:47] LABS: ASPARTATE AMINOTRANSFERASE 23.0 U/L (10-37); TOTAL PROTEIN, SERUM 6.5 g/dL (6.0-8.3)
[2024-10-29] MEDS: FAMOTIDINE 20MG VIAL IV SCH (08:58)
[2024-10-29] MEDS: ENOXAPARIN SODIUM 30 MG/0.3 ML SQ SCH (09:06)
--- NOTE | 2024-10-29 10:00 | NUR ---
DCP: HOME Pt is a readmission and was DC 10/24/24. Pt stated that after she was dc she continued to feel ill and saw that it was not improving so she decided to come back into the ER. Pt currently lives with a roomate. Pt receives $290 in [employer] benefits. Pt uses a wheelchair, cane, and walker at home to ambulate. Pt receives 5 hrs a day in provider services and they assist her with all ADLs, home health, and provider services. PCP is Dr. Jorge Negron and uses [facility] for any RX needs. At DC pt will want to go home and family can assist with transportation. Addendum: 10/29/24 at 1001 by CECIL GARCIA SS Amended: Links added.
--- NOTE | 2024-10-29 13:00 | EKG ---
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
[2024-10-29] MEDS ORDERED: MAGNESIUM 4GM PREMIX 100ML IV SCH (14:30)
[2024-10-29] MEDS: LACTATED RINGERS 1000ML 1,000 ML IV SCH (14:30)
[2024-10-29] MEDS ORDERED: PoTASSium chloRIDE 20MEQ ER 20 MEQ ERTAB PO SCH (14:30)
--- NOTE | 2024-10-29 15:33 | NUR ---
Lindsey viadl in [facility] - 10/29/24 at 1838 by PHIL PT IS SCHEDULED FOR LAPARASCOPIC APPANDECTOMY FOR TOMORROW 9:00 AM.
[2024-10-29] MEDS: PoTASSium chloRIDE 20MEQ ER 20 MEQ ERTAB PO ONE (17:08)
--- NOTE | 2024-10-29 19:13 | NUR ---
NO BOWEL MOTIONS TODAY.
[2024-10-29 21:10] VITALS: BP 140/79; PULSE 81; RESP 19; TEMP 97.8
[2024-10-29 22:00] VITALS: O2SAT 95
[2024-10-29 23:49] VITALS: BP 108/70; PULSE 98; RESP 16; TEMP 98.6
[2024-10-30 03:44] VITALS: BP 138/85; PULSE 90; RESP 16; TEMP 99.1
[2024-10-30 04:59] LABS: NUCLEATED RED BLOOD CELLS 0.0 % (0.0-0.19); PLATELET COUNT (AUTO) 244.0 K/uL (130-400); RED BLOOD CELL COUNT(AUTO) 3.37 MIL/uL (4.00-5.50); RED CELL DISTRIBUTION WIDTH 14.7 % (11.0-15.5); WHITE BLOOD COUNT (AUTO) 5.2 K/uL (4.8-10.8)
[2024-10-30 05:14] LABS: CREATININE 0.7 mg/dL (0.5-1.0); GLOMERULAR FILTR. RATE CALC 109.0 mL/min (>90); GLUCOSE,RANDOM 112.0 mg/dL (70-105); PHOSPHORUS 3.4 mg/dL (2.5-4.9); SODIUM SERUM 142.0 mmol/L (136-145); UREA NITROGEN, BLOOD 6.0 mg/dL (7-18)
[2024-10-30 08:00] VITALS: BP 111/79; PULSE 96; RESP 19; TEMP 98.7
[2024-10-30 09:47] VITALS: O2SAT 95
--- NOTE | 2024-10-30 11:25 | PN ---
[facility] PROGRESS NOTE Date of Service: Oct 30, 2024 Time of Service: 11:14 SUBJECTIVE: We will continue to replete electrolytes in the setting of diarrhea. REVIEW OF SYSTEMS 12-point ROS reviewed with patient. All pertinent positives mentioned above. Otherwise negative, noncontributory, non-pertinent. PHYSICAL EXAM GENERAL APPEARANCE: The patient is awake, alert, and oriented, in no acute cardiopulmonary distress. NEUROLOGICAL: Cranial nerves II-XII grossly intact. Motor is 5/5 in bilateral upper and lower extremities proximal to distal. No sensory deficits. HEENT: Face is symmetric. Pupils are equal and reactive. Extraocular movements are intact. NECK: Supple. No JVD. No thyromegaly. No submental, submandibular, pre- /postauricular, occipital or supraclavicular lymphadenopathy. CHEST: Normal chest expansion. No Telemetry. LUNGS: Absence of any rales, rhonchi or any wheezing. CARDIOVASCULAR: Regular. S1 and S2 normal. No appreciable rubs, murmurs or gallops. ABDOMEN: Soft, nontender, and nondistended. Well-healed vertical scar. There is no rebound, voluntary guarding, or rigidity. : Deferred. No Carnes. EXTREMITIES: Non-edematous and not cyanotic. No clubbing. Good capillary refill. SKIN: No skin breakdown. Vital Signs (last 8hr) Date Time Temp Pulse Resp B/P (MAP) Pulse Ox O2 Delivery O2 Flow Rate FiO2 10/30/24 08:00 98.8 96 19 111/79 95 Room Air 10/30/24 03:44 99.1 90 16 138/85 95 Room Air LABS: Laboratory: Test 10/30/24 05:20 10/30/24 04:36 10/29/24 07:03 10/29/24 02:37 Range/Units Whole Blood Glucose 108 70-110 MG/DL White Blood Count 5.2 4.8-10.8 K/uL Red Blood Count 3.37 L 4.00-5.50 MIL/uL Hemoglobin 9.2 L 12.0-16.0 g/dL Hematocrit 29.4 L 36-48 % Mean Corpuscular Volume 87.2 79-99 fL Mean Corpuscular Hemoglobin 27.3 27.0-33.0 pg Mean Corpuscular Hemoglobin Concent 31.3 L 32.0-36.0 g/dL Red Cell Distribution Width 14.7 11.0-15.5 % Platelet Count 244 130-400 K/uL Mean Platelet Volume 11.0 H 7.5-10.5 fL Nucleated Red Blood Cells 0.0 0.0-0.19 % Sodium Level 142 136-145 mmol/L Potassium Level 3.6 3.5-5.1 mmol/L Chloride Level 108 101-111 mmol/L Carbon Dioxide Level 27 21-32 mmol/L Blood Urea Nitrogen 6 L 7-18 mg/dL Creatinine 0.7 0.5-1.0 mg/dL Glomerular Filtration Rate Calc 109 >90 mL/min Random Glucose 112 H 70-105 mg/dL Total Calcium 8.2 L 8.5-10.1 mg/dL Phosphorus Level 3.4 2.5-4.9 mg/dL Magnesium Level 1.50 L 1.80-2.40 mg/dL Total Bilirubin 0.3 0.2-1.0 mg/dL Aspartate Amino Transf (AST/SGOT) 23 10-37 U/L Alanine Aminotransferase (ALT/SGPT) 29 12-78 U/L Alkaline Phosphatase 114 50-136 U/L Total Protein 6.5 6.0-8.3 g/dL Albumin 3.5 3.5-5.0 g/dL Thyroid Stimulating Hormone (TSH) 7.07 #H 0.36-3.74 uIU/mL Urine Color LIGHT-YELLOW YELLOW Urine Appearance CLEAR CLEAR Urine pH 6.5 5.0-8.0 Urine Specific [place] 1.005 1.001-1.031 Urine Protein NEGATIVE NEGATIVE mg/dL Urine Glucose (UA) NEGATIVE NEGATIVE mg/dL Urine Ketones NEGATIVE NEGATIVE mg/dL Urine Occult Blood NEGATIVE NEGATIVE Urine Nitrate NEGATIVE NEGATIVE Urine Bilirubin NEGATIVE NEGATIVE mg/dL Urine Urobilinogen 0.2 0.2-1.0 mg/dL Urine Leukocyte Esterase NEGATIVE NEGATIVE Eliceo/uL Urine HCG, Qualitative NEGATIVE NEGATIVE Test 10/29/24 02:13 Range/Units Immature Granulocyte % (Auto) 0.4 0-1 % Neutrophils (%) (Auto) 71.4 40.0-77.0 % Lymphocytes (%) (Auto) 18.8 L 21.0-51.0 % Monocytes (%) (Auto) 6.7 3.0-13.0 % Eosinophils (%) (Auto) 2.3 0.0-8.0 % Basophils (%) (Auto) 0.4 0.0-5.0 % Neutrophils # (Auto) 5.0 1.8-7.7 K/uL Lymphocytes # (Auto) 1.3 1.0-4.8 K/uL Monocytes # (Auto) 0.5 0.1-1.0 K/uL Eosinophils # (Auto) 0.16 0.00-0.70 K/uL Basophils # (Auto) 0.03 0.00-0.20 K/uL Absolute Immature Granulocyte (auto 0.03 0-1 K/uL Hemoglobin A1c 5.0 4.0-6.0 % Estimated Average Glucose (eAG) 97 70-126 mg/dL Amylase Level 19 #L 25-115 U/L Lipase 25 16-77 U/L Current Medications Medications (Trade) Dose Ordered Sig/Sandi Route PRN Reason Start Time Stop Time Status Last Admin Dose Admin Acetaminophen (TYLenol 325MG TAB) 650 mg Q6H PRN PO FEVER/MILD PAIN LEVEL 1-3 10/29/24 04:00 11/28/24 03:59 Acetaminophen (TYLenol 650MG SUPPOSITORY) 650 mg Q6H PRN RC FEVER / MILD PAIN 1-3 IF NPO 10/29/24 04:00 11/28/24 03:59 Dextrose (D50w) 50 ml AD PRN IV HYPOGLYCEMIA PROTOCOL 10/29/24 04:00 11/28/24 03:59 Enoxaparin Sodium (Lovenox) 30 mg DAILY SQ 10/29/24 09:00 11/28/24 08:59 10/30/24 09:48 30 MG Famotidine (Pepcid 20mg Vial) 20 mg BID IV 10/29/24 09:00 11/28/24 08:59 10/30/24 09:47 20 MG Glucagon (Glucagon 1mg Kit) 1 mg AD PRN IM HYPOGLYCEMIA PROTOCOL 10/29/24 04:00 11/28/24 03:59 Hydromorphone HCl (DiLAUDid 0.5MG INJ) 0.5 mg Q6H PRN IVP SEVERE PAIN (7-10) 10/29/24 05:00 11/03/24 04:59 10/30/24 09:48 0.5 MG Insulin Human Regular (humuLIN R 100 UNIT/ML 3ML) INSULIN SLIDING SCAL... ACHS SQ 10/29/24 07:30 11/28/24 07:29 Ketorolac Tromethamine (toRADol) 30 mg Q6H PRN IVP MODERATE PAIN (4-6) 10/29/24 05:00 11/03/24 04:59 Labetalol HCl (TRANdate 20MG SYG) 10 mg Q2H PRN IV SBP GREATER THAN 160 10/29/24 04:00 11/28/24 03:59 Lactated Ringer's 1,000 ml @ 50 mls/hr Q20H IV 10/29/24 14:30 11/28/24 14:29 Loperamide HCl (Immodium Liquid) 2 mg TID PRN PO AFTER EACH LOOSE STOOL 10/29/24 05:00 11/28/24 04:59 Magnesium Sulfate 50 ml @ 0 mls/hr PROTOCOL PRN IV MAGNESIUM PROTOCOL 10/29/24 04:00 11/28/24 03:59 Magnesium Sulfate (Magnesium 4gm Premix 100ml) 4 gm AD IV 10/29/24 14:30 10/29/24 14:17 DC Ondansetron HCl (zoFRAN 4MG INJ) 4 mg Q6H PRN IVP NAUSEA/VOMITING 10/29/24 04:00 11/28/24 03:59 Potassium Chloride/Sodium Chloride 1,000 ml @ 100 mls/hr Q10H IV 10/29/24 04:00 10/29/24 14:17 DC 10/29/24 03:52 100 MLS/HR Potassium Chloride 100 ml @ 100 mls/hr AD PRN IV POTASSIUM PROTOCOL 10/29/24 04:00 11/28/24 03:59 Potassium Chloride (K-Dur/Klor-Con 20meq) 20 meq AD PRN PO POTASSIUM PROTOCOL 10/29/24 04:00 11/28/24 03:59 Potassium Chloride (K-Dur/Klor-Con 20meq) 40 meq Q1HR PO 10/29/24 14:30 10/30/24 14:31 Potassium Chloride (KCl 10% Elixir 20meq/15ml) 20 meq AD PRN PO POTASSIUM PROTOCOL 10/29/24 04:00 11/28/24 03:59 Temazepam (restORIL 15 MG CAP) 15 mg HS PRN PO INSOMNIA/SLEEP 10/29/24 04:00 11/28/24 03:59 DIAGNOSTICS / RADIOLOGY: [ ] ASSESSMENT: Severe hyponatremia 2/2 diarrhea due to chronic laxative use Acute on chronic abdominal pain, POA 0.5 cm nonobstructive calculus versus focal cortical calcification at the left renal upper pole, per CT 10/29/2024 Mild hydroureteronephrosis is present bilaterally, likely secondary to chronic bladder outlet obstruction, per CT on 10/29/2024 Chronic urinary bladder cystitis, per CT on 10/29/2024 Small free fluid in the pelvis, per CT on 10/29/2024 Partially visualized ventriculoperitoneal shunt on the right side that terminates at the left anterior subdiaphragmatic region, per CT on 10/29/2024 Anemia chronic disease Drug-seeking behavior Chronic narcotic use Chronic problem list: Anxiety, depression, seizure disorder, spina bifida, chronic abdominal pain, hepatitis, hx PICC line to right chest, chronic UTI and self catheterization PLAN: Monitor off antibiotics for signs of infection Trend WBCs O2 nasal cannula as needed Monitor blood pressure Advanced diet as tolerate GI prophylaxis with famotidine Discontinue IV fluids Trend a.m. BMP Replete electrolytes as necessary DVT prophylaxis with Lovenox Trend a.m. CBC Full code Case was discussed with patient's nurse at bedside Attention time greater than 30 minutes VITA CAM IV, MD Oct 30, 2024 11:25
[2024-10-30] MEDS ORDERED: MAGNESIUM 4GM PREMIX 100ML IV SCH (11:30)
[2024-10-30 12:00] VITALS: BP 118/73; PULSE 82; RESP 21; TEMP 98.5
--- NOTE | 2024-10-30 12:24 | DS ---
Discharge Summary Hospital Course Summary: Patient presented due to weakness found to have electrolyte abnormalities in the setting of chronic diarrhea. Patient underwent IV hydration and electrolyte repletion with improvement in symptoms. Patient reports she has a appointment with GI tomorrow to review pill endoscopy results. She asked if she would be discharged. Patient was repleted aggressively and discharge to follow up with PCP and GI. Medications as per med rec. Assessment/Plan: ASSESSMENT: Severe hyponatremia 2/2 diarrhea due to chronic laxative use Acute on chronic abdominal pain, POA 0.5 cm nonobstructive calculus versus focal cortical calcification at the left renal upper pole, per CT 10/29/2024 Mild hydroureteronephrosis is present bilaterally, likely secondary to chronic bladder outlet obstruction, per CT on 10/29/2024 Chronic urinary bladder cystitis, per CT on 10/29/2024 Small free fluid in the pelvis, per CT on 10/29/2024 Partially visualized ventriculoperitoneal shunt on the right side that terminates at the left anterior subdiaphragmatic region, per CT on 10/29/2024 Anemia chronic disease Drug-seeking behavior Chronic narcotic use Chronic problem list: Anxiety, depression, seizure disorder, spina bifida, chronic abdominal pain, hepatitis, hx PICC line to right chest, chronic UTI and self catheterization PLAN: Monitor off antibiotics for signs of infection Trend WBCs O2 nasal cannula as needed Monitor blood pressure Advanced diet as tolerate GI prophylaxis with famotidine Discontinue IV fluids Trend a.m. BMP Replete electrolytes as necessary DVT prophylaxis with Lovenox Trend a.m. CBC Full code Case was discussed with patient's nurse at bedside Attention time greater than 30 minutes Home Medications: Active Scripts Lactobacillus Acidophilus (Acidophilus Probiotic) 500 Million Cell Capsule, 1 CAP PO BID for 10 Days, #20 CAP 0 Refills Prov:JOSE ALDRIDGE MD 10/28/24 Pantoprazole Sodium (Protonix) 40 Mg Ectab, 1 TAB PO DAILY for 30 Days, #30 TAB 0 Refills Prov:JOSE ALDRIDGE MD 10/28/24 Cephalexin Monohydrate (Keflex) 500 Mg Cap, 1 CAP PO BID for 10 Days, #20 CAP 0 Refills Prov:JOSE ALDRIDGE MD 10/28/24 Reported Medications Potassium Chloride (Potassium Chloride) 20 Meq Tab.er.prt, 20 MEQ PO DAILYDINNER 10/21/24 Omeprazole (Omeprazole) 40 Mg Capsule.dr, 40 MG PO DAILY, CAP 10/21/24 Omeprazole (Omeprazole) 40 Mg Capsule.dr, 1 CAP PO DAILY for 30 Days, #30 CAP 0 Refills 10/21/24 Fe Fumarate/FA/Mv, Min Comb#15 (Centratex Capsule) 106 Mg Iron-1 Mg Capsule, 1 EACH PO DAILY, CAP 07/25/24 Sennosides (Senna Laxative) 8.6 Mg Tablet, 8.6 MG PO DAILY PRN for CONSTIPATION, TAB 07/25/24 Alprazolam (Alprazolam) 2 Mg Tab.rapdis, 1 TAB PO TID PRN for ANXIETY for 30 Days, #90 TAB 0 Refills 07/25/24 Levetiracetam (Levetiracetam) 1,000 Mg Tablet, 1 TAB PO BID for SEIZURES 07/25/24 Plecanatide (Trulance) 3 Mg Tablet, 1 TAB PO DAILY for 30 Days, #30 TAB 0 Refills 07/17/24 Linaclotide (Linzess) 290 Mcg Capsule, 1 CAP PO DAILY for 30 Days, #30 CAP 0 Refills 07/17/24 Time spent arranging discharge: 31-60 minutes VITA CAM IV, MD Oct 30, 2024 12:24
[2024-10-30] MEDS: PoTASSium chloRIDE 20MEQ ER 20 MEQ ERTAB PO ONE (12:39)
[2024-10-30] MEDS: MAGNESIUM 4GM PREMIX 100ML IV ONE (12:39)
[2024-10-30 16:00] VITALS: BP 125/71; PULSE 98; RESP 19; TEMP 98.1
--- NOTE | 2024-10-30 19:10 | NUR ---
DISCHARGE DISCHARGE EDUCATION AND INSTRUCTIONS PROVIDED PATIENT AWARE TO FOLLOW UP WITH PCP AND GI PATIENT AWARE TO CONTINUE MEDICATIONS DIRECTED BY MD ALL QUESTIONS ANSWERED.
== END 2024-10-30 19:00 | disposition home or self-care (01) ==
LOC: EDH 01:29 → EDHIP 03:39 → 3BH 20:50
PROVIDERS: ADMIT Internal Medicine; ATTEND Internal Medicine
DX: E87.1 Hypo-osmolality and hyponatremia (principal); N13.6 Pyonephrosis; N32.0 Bladder-neck obstruction; E87.6 Hypokalemia; F32.A Depression, unspecified; F41.9 Anxiety disorder, unspecified; G40.909 Epilepsy, unspecified, not intractable, without status epilepticus; K75.9 Inflammatory liver disease, unspecified; Q05.9 Spina bifida, unspecified; I10 Essential (primary) hypertension; G89.29 Other chronic pain; D63.8 Anemia in other chronic diseases classified elsewhere; K52.9 Noninfective gastroenteritis and colitis, unspecified; Z76.5 Malingerer [conscious simulation]; Z79.891 Long term (current) use of opiate analgesic; Z98.2 Presence of cerebrospinal fluid drainage device; Z79.899 Other long term (current) drug therapy; Z98.890 Other specified postprocedural states
CPT/HCPCS: 96376 ×2; 96372 ×2; 96361; 96375; 99285; 83036; 82150; 84443; 83735 ×2; 80053 ×2; 83690; 85025; 85027 ×2; 82948 ×7; 81003; 81025; 36415 ×2; 74176; 93005; 96365; 84100; 80048; G0378 ×39; J7120; J3490 ×3; J1650 ×2; J2270; J3480; J1171 ×7; J3475

== ENCOUNTER 2024-11-04 01:07 | Emergency (ER) | payer MEDICAID ==
[~2024-11-04] VITALS: Ht 147.3 cm; Wt 58.1 kg
[~2024-11-04 01:07] MED LIST changes: -ALPR-412 PO; -CEPH500B PO; -FE F1CAP33 PO; -LACT-356 PO; -OMEP40CA21 PO; -PANT40TA55 PO; -PLEC3TAB2 PO; -POTA-202 PO; -SENN8.6T20 PO
--- NOTE | 2024-11-04 01:40 | ERN ---
General Chief Complaint: Abdominal Pain Stated Complaint: C/O ABD PAIN WITH N X V, WEAKNESS Time Seen by MD: 01:14 History of Present Illness Initial Comments 43-year-old female born with spina bifida and has a neobladder that she self catheterizes for urination. She has a long history of multiple admissions to the hospital for electrolyte abnormalities due to her chronic diarrhea. She also has abdominal pain for which she takes Dilaudid. She was recently admitted to this hospital with numerous electrolyte abnormalities which were being corrected when she had to leave to keep an appointment with a GI doctor. She comes back with the above complaints Allergies: Coded Allergies: No Known Drug Allergies (Verified Allergy, Unknown, 07/12/20) Home Meds Reported Medications Levetiracetam (Levetiracetam) 1,000 Mg Tablet, 1 TAB PO BID for SEIZURES 07/25/24 Linaclotide (Linzess) 290 Mcg Capsule, 1 CAP PO DAILY for 30 Days, #30 CAP 0 Refills 07/17/24 Discontinued Reported Medications Potassium Chloride (Potassium Chloride) 20 Meq Tab.er.prt, 20 MEQ PO DAILYDINNER 10/21/24 Omeprazole (Omeprazole) 40 Mg Capsule.dr, 40 MG PO DAILY, CAP 10/21/24 Omeprazole (Omeprazole) 40 Mg Capsule.dr, 1 CAP PO DAILY for 30 Days, #30 CAP 0 Refills 10/21/24 Fe Fumarate/FA/Mv, Min Comb#15 (Centratex Capsule) 106 Mg Iron-1 Mg Capsule, 1 EACH PO DAILY, CAP 07/25/24 Sennosides (Senna Laxative) 8.6 Mg Tablet, 8.6 MG PO DAILY PRN for CONSTIPATION, TAB 07/25/24 Alprazolam (Alprazolam) 2 Mg Tab.rapdis, 1 TAB PO TID PRN for ANXIETY for 30 Days, #90 TAB 0 Refills 07/25/24 Plecanatide (Trulance) 3 Mg Tablet, 1 TAB PO DAILY for 30 Days, #30 TAB 0 Refills 07/17/24 Discontinued Scripts Lactobacillus Acidophilus (Acidophilus Probiotic) 500 Million Cell Capsule, 1 CAP PO BID for 10 Days, #20 CAP 0 Refills Prov:JOSE ALDRIDGE MD 10/28/24 Pantoprazole Sodium (Protonix) 40 Mg Ectab, 1 TAB PO DAILY for 30 Days, #30 TAB 0 Refills Prov:JOSE ALDRIDGE MD 10/28/24 Cephalexin Monohydrate (Keflex) 500 Mg Cap, 1 CAP PO BID for 10 Days, #20 CAP 0 Refills Prov:JOSE ALDRIDGE MD 10/28/24 Past Medical History Past Medical History: Seizure, Other Medical History Other: SHUNT TO HEAD; HX OF BLADDER INFECTIONS; HX OF SPINAL BIFIDA Past Surgical History: Other Surgical History Other: PICC LINE TO RT SIDE OF CHEST Family History Family History: Negative Social History Social History: Negative, Lives with family, Other Female( History) History: Not Applicable : 0 Constitutional: (+) weakness EENTM: (-) eye pain, (-) blurred vision, (-) tearing, (-) double vision, (-) ear pain, (-) ear discharge, (-) nose pain, (-) nose congestion, (-) throat pain, (-) Throat swelling, (-) mouth pain, (-) tooth pain, (-) mouth swelling, (-) other documentation Gastrointestinal/Abdominal: (+) nausea, (+) vomiting Genitourinary: (-) vaginal discharge, (-) vaginal bleeding, (-) dysuria, (-) frequency, (-) hematuria, (-) pain, (-) other documentation Musculoskeletal: (-) Neck pain, (-) back pain, (-) Flank Pain, (-) joint pain, (-) joint swelling, (-) muscle pain, (-) muscle stiffness, (-) gout, (-) other documentation Skin: (-) laceration, (-) contusion, (-) abrasion, (-) abscess, (-) rash, (-) change in color, (-) change in hair, (-) change in nails, (-) diaphoresis, (-) dryness, (-) other documentation Physical Exam General Appearance: (+) moderate distress Orientation: (+) alert, (+) oriented x 3 Head/Face Trauma: No Eye: bilateral eye normal inspection, bilateral eye PERRL, bilateral eye EOMI Ear, Nose, Throat: (+) hearing grossly normal, (+) normal ENT inspection Neck: (+) normal inspection, (+) supple Respiratory: (+) chest non-tender, (+) lungs clear, (+) well ventilated Heart: (+) regular, (+) no gallop Vascular: (+) no edema, (+) normal peripheral pulse Gastrointestinal: (+) soft, (+) bowel sound present, (+) tender Results Laboratory and Microbiology Lab and Micro Result Laboratory Tests Test 11/04/24 03:03 11/04/24 03:08 White Blood Count 4.9 K/uL (4.8-10.8) Red Blood Count 3.59 MIL/uL (4.00-5.50) L Hemoglobin 9.9 g/dL (12.0-16.0) L Hematocrit 30.9 % (36-48) L Mean Corpuscular Volume 86.1 fL (79-99) Mean Corpuscular Hemoglobin 27.6 pg (27.0-33.0) Mean Corpuscular Hemoglobin Concent 32.0 g/dL (32.0-36.0) Red Cell Distribution Width 14.2 % (11.0-15.5) Platelet Count 276 K/uL (130-400) Mean Platelet Volume 10.6 fL (7.5-10.5) H Immature Granulocyte % (Auto) 0.2 % (0-1) Neutrophils (%) (Auto) 67.0 % (40.0-77.0) Lymphocytes (%) (Auto) 20.3 % (21.0-51.0) L Monocytes (%) (Auto) 8.6 % (3.0-13.0) Eosinophils (%) (Auto) 3.5 % (0.0-8.0) Basophils (%) (Auto) 0.4 % (0.0-5.0) Neutrophils # (Auto) 3.3 K/uL (1.8-7.7) Lymphocytes # (Auto) 1.0 K/uL (1.0-4.8) Monocytes # (Auto) 0.4 K/uL (0.1-1.0) Eosinophils # (Auto) 0.17 K/uL (0.00-0.70) Basophils # (Auto) 0.02 K/uL (0.00-0.20) Absolute Immature Granulocyte (auto 0.01 K/uL (0-1) Nucleated Red Blood Cells 0.0 % (0.0-0.19) Sodium Level 136 mmol/L (136-145) Potassium Level 3.1 mmol/L (3.5-5.1) L Chloride Level 101 mmol/L (101-111) Carbon Dioxide Level 28 mmol/L (21-32) Blood Urea Nitrogen 5 mg/dL (7-18) L Creatinine 0.7 mg/dL (0.5-1.0) Glomerular Filtration Rate Calc 109 mL/min (>90) Random Glucose 101 mg/dL (70-105) Total Calcium 8.4 mg/dL (8.5-10.1) L Urine Color LIGHT-YELLOW (YELLOW) Urine Appearance CLEAR (CLEAR) Urine pH 6.5 (5.0-8.0) Urine Specific [place] 1.005 (1.001-1.031) Urine Protein NEGATIVE mg/dL (NEGATIVE) Urine Glucose (UA) NEGATIVE mg/dL (NEGATIVE) Urine Ketones NEGATIVE mg/dL (NEGATIVE) Urine Occult Blood MODERATE (NEGATIVE) H Urine Nitrate NEGATIVE (NEGATIVE) Urine Bilirubin NEGATIVE mg/dL (NEGATIVE) Urine Urobilinogen 0.2 mg/dL (0.2-1.0) Urine Leukocyte Esterase NEGATIVE [place]ice[place]/uL Urine RBC 2-5 /HPF (0-1) H Urine WBC 11-25 /HPF (0-1) H Urine WBC Clumps (Auto) FEW /HPF (0-1) Urine Squamous Epithelial Cells RARE /HPF (0-2) Urine Bacteria RARE /HPF (None Seen) MDM MDM: Differential diagnosis: UTI, electrolyte abnormality, dehydration, chronic pain, Rationale: Tests considered and ordered secondary to shared decision making include: Previous outside records reviewed: Old ER visits. Risk of complication and/or morbidity or mortality of patient management: None Medications-Per medication reconciliation Need for hospitalization: Patient does meet criteria for hospitalization. Need for emergency major/minor surgery: No There are no social concerns with this patient. Prescription drug management Prescriptions will include symptomatic care Patient's prior external medical records from other ER visits were reviewed by me as indicated. Prior testing and results from previous visits were reviewed. Prior tests were taken into account with medical decision making and resource utilization, independent historian/historians were used to obtain complete the [facility] history. I independently interpreted the test that were performed, results were reviewed by me and considered findings on radiology if ordered. Patient's electrolytes are normal patient's CBC is normal patient's UA is normal as well patient's potassium was low I am giving her 50 mEq of oral potassium. Patient's chief complaint was abdominal pain the GI cocktail I gave her reduced her pain to 0. She would like to go home and she is requesting prescription for the GI cocktail. ED Course Orders Procedure Category Date Status Time Basic Metabolic Panel LAB 11/04/24 Complete 01: Cbc With Differential LAB 11/04/24 Complete 01: Urinalysis Profile LAB 11/04/24 Complete 01: Lactated Ringers PHA 11/04/24 Complete 1000ml (Lactated 01:33 Lidocaine Hcl 2% PHA 11/04/24 Complete Viscous (Lidocaine Hcl 02:00 Mag/Alum/Simeth 30ml PHA 11/04/24 Complete (Maalox Plus 30ml) 02:00 Dicyclomine Hcl PHA 11/04/24 Complete (Bentyl 10mg/5ml 02:00 Hydromorphone 1 Mg PHA 11/04/24 Complete Inj (Dilaudid 1mg Inj 02:00 Potassium Bicarb/Cit PHA 11/04/24 Complete Ac 25meq (K-Lyte Ta 04:00 Culture Urine HANK 11/04/24 In Process 03:08 Current Medications Medications (Trade) Dose Ordered Sig/Sandi Route PRN Reason Start Time Stop Time Status Last Admin Dose Admin Al Hydroxide/Mg Hydroxide (MAALox PLUS 30ML) 30 ml ONCE ONCE PO 11/04/24 02:00 11/04/24 02:01 DC 11/04/24 02:10 Dicyclomine HCl (Bentyl 10mg/5ml Syrup) 10 mg ONCE ONCE PO 11/04/24 02:00 11/04/24 02:01 DC 11/04/24 02:10 Hydromorphone HCl (DiLAUDid 1MG INJ) 1 mg ONCE ONCE IVP 11/04/24 02:00 11/04/24 02:01 DC 11/04/24 02:11 Lactated Ringer's (Lactated Ringers 1000ml) 500 ml BOLUS STAT IV 11/04/24 01:33 11/04/24 01:41 DC 11/04/24 02:11 Lidocaine HCl (Lidocaine HCl 2% Viscous) 10 ml ONCE ONCE PO 11/04/24 02:00 11/04/24 02:01 DC 11/04/24 02:10 Potassium Bicarbonate (K-Lyte Tablet Eff 25 Meq Tablet.eff) 50 meq ONCE ONCE PO 11/04/24 04:00 11/04/24 04:01 DC Vital Signs Date Time Temp Pulse Resp B/P (MAP) Pulse Ox O2 Delivery O2 Flow Rate FiO2 11/04/24 02:00 98.2 89 17 142/79 98 Room Air* 0 21 11/04/24 01:12 98.2 78 20 142/96 100 Room Air DX & DISP Disposition: Discharge Departure Impression: Primary Impression: Abdominal pain Additional Impressions: Chronic abdominal pain, Hypokalemia Condition: Stable Scripts Dicyclomine HCl (Bentyl) 10 Mg Cap 1 CAP PO Q6HPRN PRN for irritable bowel symptoms for 25 Days, #100 CAP 0 Refills Prov: ISABELL MAYEN MD 11/04/24 Additional Instructions: You came in with the abdominal pain with concerns of hypokalemia. Your potassium is a little bit low I have replenished it I have also given you some fluid. The GI cocktail I gave you eradicated your abdominal pain it contained Maalox lidocaine and Bentyl I will write prescriptions for the Bentyl and the Maalox you can purchase [id number]. Please see your primary care physician or your GI doctor about further management of this problem. Referrals: FRANKI VILLAFANA MD (PCP) ISABELL MAYEN MD Nov 04, 2024 01:40
[2024-11-04] MEDS: MAG/ALUM/SIMETH 30 ML UDCUP PO ONE (02:10)
[2024-11-04] MEDS: DICYCLOMINE HCL 10 MG/5 ML ML PO ONE (02:10)
[2024-11-04] MEDS: LIDOCAINE HCL 2% VISCOUS 15 ML UDCUP PO ONE (02:10)
[2024-11-04] MEDS: LACTATED RINGERS 1000ML IV STA (02:11)
[2024-11-04 03:21] LABS: IMMATURE GRANULOCYTE ABSOLUTE 0.01 K/uL (0-1); NUCLEATED RED BLOOD CELLS 0.0 % (0.0-0.19); PLATELET COUNT (AUTO) 276 K/uL (130-400); RED BLOOD CELL COUNT(AUTO) 3.59 MIL/uL (4.00-5.50); RED CELL DISTRIBUTION WIDTH 14.2 % (11.0-15.5); WHITE BLOOD COUNT (AUTO) 4.9 K/uL (4.8-10.8)
[2024-11-04 03:22] LABS: CREATININE 0.7 mg/dL (0.5-1.0); GLOMERULAR FILTR. RATE CALC 109.0 mL/min (>90); GLUCOSE,RANDOM 101.0 mg/dL (70-105); SODIUM SERUM 136.0 mmol/L (136-145); UREA NITROGEN, BLOOD 5.0 mg/dL (7-18)
[2024-11-04 03:32] LABS: APPEARANCE,URINE CLEAR (CLEAR); GLUCOSE, URINE (UA) NEGATIVE (NEGATIVE); LEUKOCYTE ESTERASE ,URINE NEGATIVE Leu/uL (NEGATIVE); NITRATE,URINE NEGATIVE (NEGATIVE); OCCULT BLOOD,URINE MODERATE (NEGATIVE)
[2024-11-04 03:38] LABS: ADD UA MICROSCOPIC YES
[2024-11-04 03:40] LABS: SQUAMOUS EPITHELIAL CELL,UR RARE /HPF (0-2); WBC CLUMP FEW /HPF (0-1)
[2024-11-04] MEDS ORDERED: DICY10 PO (04:13)
[2024-11-04 04:35] VITALS: BP 145/81; PULSE 89; RESP 16; TEMP 98.2; O2SAT 98
== END 2024-11-04 04:38 | disposition home or self-care (01) ==
LOC: EDH 01:07
DX: G89.29 Other chronic pain (principal); R10.9 Unspecified abdominal pain; E87.6 Hypokalemia; Z79.899 Other long term (current) drug therapy
CPT/HCPCS: 99285; 96374; 96361; 80048; 85025; 87086; 81001; 36415; J7120; J1171

== ENCOUNTER 2024-11-16 14:29 | Emergency (ER) | payer MEDICAID ==
[~2024-11-16] VITALS: Ht 147.3 cm; Wt 54.4 kg
[~2024-11-16 14:29] MED LIST changes: +DICY10 PO
[2024-11-16] MEDS: HALOPERIDOL INJ 5 MG/ML VIAL IM STA (15:22)
--- NOTE | 2024-11-16 15:26 | EKG ---
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
--- NOTE | 2024-11-16 15:34 | NUR ---
PT IS REFUSING HALDOL AFTER MEDICATION WAS EXPLAINED TO HER. PT STATES THE ONLY MEDICATIONS THAT WORK FOR HER ARE MAYBE MORPHINE, BUT DEFINETELY DILAUDID. PT STATES SHE ONLY TAKES DILAUDID FOR HER ABDOMINAL PAIN SHE HAS CHRONIC PANCREATITIS AND THAT IS HER PREFFERED TREATMENT
[2024-11-16 15:40] LABS: IMMATURE GRANULOCYTE ABSOLUTE 0.02 K/uL (0-1); NUCLEATED RED BLOOD CELLS 0.0 % (0.0-0.19); PLATELET COUNT (AUTO) 266 K/uL (130-400); RED BLOOD CELL COUNT(AUTO) 3.47 MIL/uL (4.00-5.50); RED CELL DISTRIBUTION WIDTH 14.1 % (11.0-15.5); WHITE BLOOD COUNT (AUTO) 6.6 K/uL (4.8-10.8)
[2024-11-16 15:40] LABS: APPEARANCE,URINE CLOUDY (CLEAR); GLUCOSE, URINE (UA) NEGATIVE (NEGATIVE); LEUKOCYTE ESTERASE ,URINE NEGATIVE Leu/uL (NEGATIVE); NITRATE,URINE NEGATIVE (NEGATIVE); OCCULT BLOOD,URINE NEGATIVE (NEGATIVE)
[2024-11-16 15:42] LABS: ADD UA MICROSCOPIC YES
[2024-11-16 15:45] LABS: SQUAMOUS EPITHELIAL CELL,UR FEW /HPF (0-2)
[2024-11-16 15:53] LABS: CREATININE 0.6 mg/dL (0.5-1.0); GLOMERULAR FILTR. RATE CALC 113.0 mL/min (>90); GLUCOSE,RANDOM 95.0 mg/dL (70-105); SODIUM SERUM 136.0 mmol/L (136-145); UREA NITROGEN, BLOOD 12.0 mg/dL (7-18)
[2024-11-16 15:57] LABS: ASPARTATE AMINOTRANSFERASE 17.0 U/L (10-37); TOTAL PROTEIN, SERUM 6.7 g/dL (6.0-8.3)
--- NOTE | 2024-11-16 16:00 | NUR ---
MD WAS MADE AWARE THAT PT IS REFUSING PART OF MEDICATION REGIMEN. WAS ADVISED OF PT REQUEST FOR DILAUDID. NO NEW ORDERS AT THIS TIME
[2024-11-16] MEDS: DICYCLOMINE 20MG (10MG/ML) AMP IM ONE (17:07)
[2024-11-16] MEDS ORDERED: DICY20TA2 PO (17:16)
--- NOTE | 2024-11-16 17:16 | ERN ---
ED Note History of Present Illness Stated Complaint: ABDOMINAL PAIN Chief Complaint: Abdominal Pain Time Seen by MD: 14:46 Dictation: 43 y/o F with diffuse abdominal pain, patient has multiple medical problems and chronic abdominal issues. Pt denies fever, CP or SOB. Pt denies GI bleeding. 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; HX OF BLADDER INFECTIONS; HX OF SPI NAL BIFIDA Surgical History: Other Surgical History Other: PICC LINE TO RT SIDE OF CHEST Family History: Negative Social History: Negative, Lives with family, Other History: Not Applicable : 0 Review of System Dictation Constitutional: Negative for fever,chills, and weight loss Eyes: Negative for injury, pain,redness, and discharge ENT: Negative for injury,pain or swelling Cardiovascular: Negative for chest pain, palpitations, and edema Respiratory: Negative for shortness of breath, cough, and wheezing, Abdomen/GI: Per HPI : Negative for injury, bleeding and discharge MS/Extremity: Negative for injury and deformity Skin: Negative for rash, and discoloration Neuro: Negative for headache, weakness, numbness, tingling, and seizure Psych: Negative for suicide ideation, homicidal ideation, and hallucinations Initial Vital Sign VS Vital Signs Date Time Temp Pulse Resp B/P (MAP) Pulse Ox O2 Delivery O2 Flow Rate FiO2 11/16/24 14:30 97.7 64 16 107/47 99 Room Air 11/16/24 16:01 0 21 Physical Exam Dictation General: awake, alert, afebrile Head/Face: Normocephalic, atraumatic Eyes: PERRL, EOMI, vision at baseline ENT: oral cavity clear, TMs clear, no signs of infection Neck: Trachea midline, supple, no nuchal rigidity Cardiovascular: RRR, normal S1/S2, No MRGs, no JVD Respiratory: CTAB, no respiratory distress, No rales or wheezes Abdomen: Soft, non-tender, non-distended, normal bowel sounds, no guarding or rebound. Skin: Warm, dry, normal turgor, no rash MS/Extremity: Pulses equal, no cyanosis, neurovascular intact, FROM, PICC line to RUE Neuro: COAx4, GCS 15, strength 5/5, CN 2-12 intact, normal cerebellar exam, normal gait, Psych: Normal behavior, mood, and affect normal Results (Laboratory/Radiology) Laboratory/Radiology Laboratory Tests Test 11/16/24 15:18 11/16/24 15:30 Urine Color LIGHT-YELLOW (YELLOW) Urine Appearance CLOUDY (CLEAR) H Urine pH 6.5 (5.0-8.0) Urine Specific [place] 1.007 (1.001-1.031) Urine Protein NEGATIVE mg/dL (NEGATIVE) Urine Glucose (UA) NEGATIVE mg/dL (NEGATIVE) Urine Ketones NEGATIVE mg/dL (NEGATIVE) Urine Occult Blood NEGATIVE (NEGATIVE) Urine Nitrate NEGATIVE (NEGATIVE) Urine Bilirubin NEGATIVE mg/dL (NEGATIVE) Urine Urobilinogen 0.2 mg/dL (0.2-1.0) Urine Leukocyte Esterase NEGATIVE Eliceo/uL Urine RBC 0-1 /HPF (0-1) Urine WBC 6-10 /HPF (0-1) H Urine Squamous Epithelial Cells FEW /HPF (0-2) Urine Bacteria MOD /HPF (None Seen) White Blood Count 6.6 K/uL (4.8-10.8) Red Blood Count 3.47 MIL/uL (4.00-5.50) L Hemoglobin 9.1 g/dL (12.0-16.0) L Hematocrit 29.4 % (36-48) L Mean Corpuscular Volume 84.7 fL (79-99) Mean Corpuscular Hemoglobin 26.2 pg (27.0-33.0) L Mean Corpuscular Hemoglobin Concent 31.0 g/dL (32.0-36.0) L Red Cell Distribution Width 14.1 % (11.0-15.5) Platelet Count 266 K/uL (130-400) Mean Platelet Volume 10.7 fL (7.5-10.5) H Immature Granulocyte % (Auto) 0.3 % (0-1) Neutrophils (%) (Auto) 71.9 % (40.0-77.0) Lymphocytes (%) (Auto) 20.0 % (21.0-51.0) L Monocytes (%) (Auto) 5.5 % (3.0-13.0) Eosinophils (%) (Auto) 1.7 % (0.0-8.0) Basophils (%) (Auto) 0.6 % (0.0-5.0) Neutrophils # (Auto) 4.7 K/uL (1.8-7.7) Lymphocytes # (Auto) 1.3 K/uL (1.0-4.8) Monocytes # (Auto) 0.4 K/uL (0.1-1.0) Eosinophils # (Auto) 0.11 K/uL (0.00-0.70) Basophils # (Auto) 0.04 K/uL (0.00-0.20) Absolute Immature Granulocyte (auto 0.02 K/uL (0-1) Nucleated Red Blood Cells 0.0 % (0.0-0.19) Red Blood Cell Morphology See comments Sodium Level 136 mmol/L (136-145) Potassium Level 3.4 mmol/L (3.5-5.1) L Chloride Level 99 mmol/L (101-111) L Carbon Dioxide Level 28 mmol/L (21-32) Blood Urea Nitrogen 12 mg/dL (7-18) Creatinine 0.6 mg/dL (0.5-1.0) Glomerular Filtration Rate Calc 113 mL/min (>90) Random Glucose 95 mg/dL (70-105) Total Calcium 8.8 mg/dL (8.5-10.1) Total Bilirubin 0.3 mg/dL (0.2-1.0) Direct Bilirubin 0.1 mg/dL (0.0-0.3) Aspartate Amino Transf (AST/SGOT) 17 U/L (10-37) Alanine Aminotransferase (ALT/SGPT) 23 U/L (12-78) Alkaline Phosphatase 132 U/L (50-136) Total Protein 6.7 g/dL (6.0-8.3) Albumin 3.6 g/dL (3.5-5.0) Lipase 26 U/L (16-77) Labs Reviewed?: Yes EKG Comment: HR 66, normal sinus rhythm normal intervals no STEMI ED Course ED Course Orders Procedure Category Date Status Time 12 Lead Ekg Tracing- EKG 11/16/24 Resulted Technical 15:04 Basic Metabolic Panel LAB 11/16/24 Complete 15:04 Cbc With Differential LAB 11/16/24 Complete 15:04 Hepatic Function Panel LAB 11/16/24 Complete 15:04 Lipase LAB 11/16/24 Complete 15:04 Urinalysis Profile LAB 11/16/24 Complete 15:04 Ondansetron 4mg Inj PHA 11/16/24 Complete (Zofran 4mg Inj) 15:30 Haloperidol Inj PHA 11/16/24 Complete (Haldol Inj) 15:04 Culture Urine HANK 11/16/24 In Process 15:45 Dicyclomine Hcl PHA 11/16/24 Complete (Bentyl 20mg Inj) 17:00 Current Medications Medications (Trade) Dose Ordered Sig/Sandi Route PRN Reason Start Time Stop Time Status Last Admin Dose Admin Dicyclomine HCl (Bentyl 20mg Inj) 10 mg ONCE ONCE IM 11/16/24 17:00 11/16/24 17:01 DC 11/16/24 17:07 Haloperidol Lactate (Haldol Inj) 2.5 mg ONCE STAT IM 11/16/24 15:04 11/16/24 15:10 DC Ondansetron HCl (zoFRAN 4MG INJ) 4 mg ONCE ONCE IVP 11/16/24 15:30 11/16/24 15:31 DC 11/16/24 15:22 Vital Signs Date Time Temp Pulse Resp B/P (MAP) Pulse Ox O2 Delivery O2 Flow Rate FiO2 11/16/24 17:00 97.7 64 16 103/63 100 Room Air* 0 21 11/16/24 16:01 97.7 60 16 105/71 97 Room Air* 0 21 11/16/24 14:30 97.7 64 16 107/47 99 Room Air Medical Decision Making MDM MDM: Differential diagnosis: Rationale: Tests considered and ordered secondary to shared decision making include: Previous outside records reviewed: Old ER visits. Risk of complication and/or morbidity or mortality of patient management: None Medications-Per medication reconciliation Need for hospitalization: Patient does not meet criteria for hospitalization. Need for emergency major/minor surgery: No There are no social concerns with this patient. Prescription drug management Prescriptions will include symptomatic care Patient's prior external medical records from other ER visits were reviewed by me as indicated. Prior testing and results from previous visits were reviewed. Prior tests were taken into account with medical decision making and resource utilization, independent historian/historians were used to obtain complete medical history. I independently interpreted the test that were performed, results were reviewed by me and considered findings on radiology if ordered. Medical management and examination interpretation discussions were had by me with other qualified healthcare professionals as indicated for the patient's care. 43-year-old female with acute on chronic abdominal pain stable exam no CT scan indicated negative workup stable for discharge. Prescriptions given. DX & DISP Disposition: Discharge Departure Impression: Primary Impression: Abdominal pain Condition: Stable Scripts Dicyclomine HCl (Bentyl) 20 Mg Tab 1 TAB PO BID for irritable bowel symptoms for 10 Days, #20 TAB 0 Refills Prov: NATALIYA JURADO MD 11/16/24 Referrals: FRANKI VILLAFANA MD (PCP) NATALIYA JURADO MD Nov 16, 2024 17:16
[2024-11-16 17:32] VITALS: BP 105/65; PULSE 64; RESP 16; TEMP 97.7; O2SAT 99
== END 2024-11-16 17:32 | disposition home or self-care (01) ==
LOC: EDH 14:29
DX: R10.84 Generalized abdominal pain (principal); G89.29 Other chronic pain; Z79.899 Other long term (current) drug therapy
CPT/HCPCS: 99284; 96374; 80076; 80048; 83690; 85025; 87086; 81001; 36415; 96372; 93005; J2405; J0500; J1630

== ENCOUNTER 2024-12-02 04:23 | Emergency (ER) | payer MEDICAID ==
[~2024-12-02] VITALS: Ht 147.3 cm; Wt 61.2 kg
[~2024-12-02 04:23] MED LIST changes: +DICY20TA2 PO
[2024-12-02] MEDS: LACTATED RINGERS 1000ML IV STA (04:48)
[2024-12-02 04:58] VITALS: BP 132/78; PULSE 74; RESP 20; TEMP 98.6; O2SAT 98
[2024-12-02 05:09] LABS: IMMATURE GRANULOCYTE ABSOLUTE 0.03 K/uL (0-1); NUCLEATED RED BLOOD CELLS 0.0 % (0.0-0.19); PLATELET COUNT (AUTO) 304 K/uL (130-400); RED BLOOD CELL COUNT(AUTO) 3.79 MIL/uL (4.00-5.50); RED CELL DISTRIBUTION WIDTH 14.1 % (11.0-15.5); WHITE BLOOD COUNT (AUTO) 6.4 K/uL (4.8-10.8)
--- NOTE | 2024-12-02 05:14 | ERN ---
General Chief Complaint: Syncope Stated Complaint: SYNCOPE Time Seen by MD: 04:26 Source: patient History of Present Illness Initial Comments Patient is a 43-year-old female born with spina bifida who has and on solved, poorly characterized and poorly treated history of abdominal pain. She is seeing a weatherization technician. She spends a lot of time in emergency rooms and hospitals with symptoms of urinary tract infections dehydration nausea vomiting and diarrhea. She comes in today with the same symptoms. She was discharged four days ago from [facility] with a urinary tract infection. Timing/Duration: 24 hours Allergies: Coded Allergies: No Known Drug Allergies (Verified Allergy, Unknown, 07/12/20) Home Meds Active Scripts Dicyclomine HCl (Bentyl) 20 Mg Tab, 1 TAB PO BID for irritable bowel symptoms for 10 Days, #20 TAB 0 Refills Prov:NATALIYA JURADO MD 11/16/24 Dicyclomine HCl (Bentyl) 10 Mg Cap, 1 CAP PO Q6HPRN PRN for irritable bowel symptoms for 25 Days, #100 CAP 0 Refills Prov:ISABELL MAYEN MD 11/04/24 Reported Medications Levetiracetam (Levetiracetam) 1,000 Mg Tablet, 1 TAB PO BID for SEIZURES 07/25/24 Linaclotide (Linzess) 290 Mcg Capsule, 1 CAP PO DAILY for 30 Days, #30 CAP 0 Refills 07/17/24 Past Medical History Past Medical History: Endometriosis, Pancreatitis, Seizure, Other Medical History Other: SPINAL BIFIDA Past Surgical History: Appendectomy, Cholecystectomy, Other Surgical History Other: [employer]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, 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 Family History Family History: Negative Social History Social History: Negative, Lives with family, Other Female( History) History: Not Applicable LMP: Dec 02, 2024 : 0 Constitutional: (-) chills, (-) diaphoresis, (-) fever, (-) malaise, (-) weakness, (-) other documentation EENTM: (-) eye pain, (-) blurred vision, (-) tearing, (-) double vision, (-) ear pain, (-) ear discharge, (-) nose pain, (-) nose congestion, (-) throat pain, (-) Throat swelling, (-) mouth pain, (-) tooth pain, (-) mouth swelling, (-) other documentation Respiratory: (-) cough, (-) orthopnea, (-) short of breath, (-) stridor, (-) wheezing, (-) other documentation Cardiovascular: (-) chest pain, (-) edema, (-) palpitations, (-) syncope, (-) dyspnea on exertion, (-) other documentation Gastrointestinal/Abdominal: (+) nausea, (+) vomiting, (+) diarrhea Genitourinary: (+) dysuria Neuro: (+) syncope Physical Exam General Appearance: (+) mild distress Orientation: (+) alert, (+) oriented x 3 Head/Face Trauma: No Eye: bilateral eye normal inspection, bilateral eye PERRL, bilateral eye EOMI Ear, Nose, Throat: (+) hearing grossly normal, (+) normal ENT inspection, (+) moist mucous membraine Neck: (+) normal inspection, (+) supple, (+) full range of motion Respiratory: (+) chest non-tender, (+) lungs clear, (+) well ventilated Heart: (+) regular, (+) no gallop Vascular: (+) no edema, (+) normal peripheral pulse Gastrointestinal: (+) soft, (+) non-tender, (+) bowel sound present Results Laboratory and Microbiology Lab and Micro Result Laboratory Tests Test 12/02/24 04:56 12/02/24 05:10 White Blood Count 6.4 K/uL (4.8-10.8) Red Blood Count 3.79 MIL/uL (4.00-5.50) L Hemoglobin 9.7 g/dL (12.0-16.0) L Hematocrit 32.2 % (36-48) L Mean Corpuscular Volume 85.0 fL (79-99) Mean Corpuscular Hemoglobin 25.6 pg (27.0-33.0) L Mean Corpuscular Hemoglobin Concent 30.1 g/dL (32.0-36.0) L Red Cell Distribution Width 14.1 % (11.0-15.5) Platelet Count 304 K/uL (130-400) Mean Platelet Volume 10.3 fL (7.5-10.5) Immature Granulocyte % (Auto) 0.5 % (0-1) Neutrophils (%) (Auto) 66.7 % (40.0-77.0) Lymphocytes (%) (Auto) 25.0 % (21.0-51.0) Monocytes (%) (Auto) 5.4 % (3.0-13.0) Eosinophils (%) (Auto) 1.9 % (0.0-8.0) Basophils (%) (Auto) 0.5 % (0.0-5.0) Neutrophils # (Auto) 4.3 K/uL (1.8-7.7) Lymphocytes # (Auto) 1.6 K/uL (1.0-4.8) Monocytes # (Auto) 0.4 K/uL (0.1-1.0) Eosinophils # (Auto) 0.12 K/uL (0.00-0.70) Basophils # (Auto) 0.03 K/uL (0.00-0.20) Absolute Immature Granulocyte (auto 0.03 K/uL (0-1) Nucleated Red Blood Cells 0.0 % (0.0-0.19) Red Blood Cell Morphology ANISO 1+ Sodium Level 136 mmol/L (136-145) Potassium Level 4.1 mmol/L (3.5-5.1) Chloride Level 108 mmol/L (101-111) Carbon Dioxide Level 20 mmol/L (21-32) L Blood Urea Nitrogen 3 mg/dL (7-18) L Creatinine 0.8 mg/dL (0.5-1.0) Glomerular Filtration Rate Calc 93 mL/min (>90) Random Glucose 89 mg/dL (70-105) Total Calcium 8.8 mg/dL (8.5-10.1) Magnesium Level 1.60 mg/dL (1.80-2.40) L Urine Color LIGHT-YELLOW (YELLOW) Urine Appearance CLEAR (CLEAR) Urine pH 6.5 (5.0-8.0) Urine Specific [place] 1.007 (1.001-1.031) Urine Protein NEGATIVE mg/dL (NEGATIVE) Urine Glucose (UA) NEGATIVE mg/dL (NEGATIVE) Urine Ketones NEGATIVE mg/dL (NEGATIVE) Urine Occult Blood MODERATE (NEGATIVE) H Urine Nitrate NEGATIVE (NEGATIVE) Urine Bilirubin NEGATIVE mg/dL (NEGATIVE) Urine Urobilinogen 0.2 mg/dL (0.2-1.0) Urine Leukocyte Esterase NEGATIVE [place]/uL Urine RBC 11-25 /HPF (0-1) H Urine WBC 0-1 /HPF (0-1) Urine Squamous Epithelial Cells RARE /HPF (0-2) Urine Bacteria RARE /HPF (None Seen) Urine HCG, Qualitative NEGATIVE (NEGATIVE) MDM MDM: Differential diagnosis: I suspect a severe electrolyte derangements as well as dehydration. I am not sure what the urine analysis we will show. Rationale: Tests considered and ordered secondary to shared decision making include: Previous outside records reviewed: Old ER visits. Risk of complication and/or morbidity or mortality of patient management: None Medications-Per medication reconciliation Need for hospitalization: Patient does meet criteria for hospitalization. Need for emergency major/minor surgery: No There are no social concerns with this patient. Prescription drug management Prescriptions will include symptomatic care Patient's prior external medical records from other ER visits were reviewed by me as indicated. Prior testing and results from previous visits were reviewed. Prior tests were taken into account with medical decision making and resource utilization, independent historian/historians were used to obtain complete medical history. I independently interpreted the test that were performed, results were reviewed by me and considered findings on radiology if ordered. Patient's chemistry panel is normal beyond a low magnesium. I have written to give the patient 2 g of IV magnesium. Patient's CBC is also normal except for a mild anemia. Possible suggestions of an iron-deficiency. Patient's urine is also clean no signs of infection. I relayed these results to the patient she is happy to know that there are no severe problems. She does feel better with the fluids. Once the magnesium is in she can go home. ED Course Orders Procedure Category Date Status Time Basic Metabolic Panel LAB 12/02/24 Complete 04:34 Cbc With Differential LAB 12/02/24 Complete 04:34 ,Urine Test LAB 12/02/24 Complete 04:34 Urinalysis Profile LAB 12/02/24 Complete 04:34 Lactated Ringers PHA 12/02/24 Complete 1000ml (Lactated 04:34 Ondansetron 4mg Inj PHA 12/02/24 Complete (Zofran 4mg Inj) 05:00 Lidocaine Hcl 2% PHA 12/02/24 Complete Viscous (Lidocaine Hcl 05:00 Mag/Alum/Simeth 30ml PHA 12/02/24 Complete (Maalox Plus 30ml) 05:00 Dicyclomine Hcl PHA 12/02/24 Complete (Bentyl 10mg/5ml 05:00 Magnesium LAB 12/02/24 Complete 04:34 Hydromorphone 0.5mg PHA 12/02/24 Complete Syg (Dilaudid 0.5mg 05:30 Magnesium 2gm Premix PHA 12/02/24 In Process 50ml (Magnesium 2gm 06:00 Current Medications Medications (Trade) Dose Ordered Sig/Sandi Route PRN Reason Start Time Stop Time Status Last Admin Dose Admin Al Hydroxide/Mg Hydroxide (MAALox PLUS 30ML) 30 ml ONCE ONCE PO 12/02/24 05:00 12/02/24 05:07 DC 12/02/24 05:26 Dicyclomine HCl (Bentyl 10mg/5ml Syrup) 10 mg ONCE ONCE PO 12/02/24 05:00 12/02/24 05:07 DC 12/02/24 05:26 Hydromorphone HCl (DiLAUDid 0.5MG INJ) 0.2 mg ONCE ONCE IVP 12/02/24 05:30 12/02/24 05:34 DC 12/02/24 05:39 Lactated Ringer's (Lactated Ringers 1000ml) 1,000 ml BOLUS STAT IV 12/02/24 04:34 12/02/24 04:39 DC 12/02/24 04:48 Lidocaine HCl (Lidocaine HCl 2% Viscous) 10 ml ONCE ONCE PO 12/02/24 05:00 12/02/24 05:07 DC 12/02/24 05:27 Magnesium Sulfate 50 ml @ 0 mls/hr PROTOCOL IV 12/02/24 06:00 01/01/25 05:59 Ondansetron HCl (zoFRAN 4MG INJ) 4 mg ONCE ONCE IVP 12/02/24 05:00 12/02/24 05:01 DC 12/02/24 04:48 Vital Signs Date Time Temp Pulse Resp B/P (MAP) Pulse Ox O2 Delivery O2 Flow Rate FiO2 12/02/24 04:58 98.6 74 20 132/78 98 Room Air* 0 21 12/02/24 04:25 98.2 80 18 118/73 100 Room Air 0 DX & DISP Disposition: Discharge Departure Impression: Primary Impression: Emesis, persistent Additional Impressions: Abdominal pain, Hypomagnesemia Condition: Stable Additional Instructions: I think your episodes of syncope were from a low volume state. You have been throwing up so much that I can see a mild acidosis in your chemistry panel and this can certainly lead to lightheadedness and syncope. Your urinary tract infection has resolved. Her magnesium is low and I have written to replace that. I encourage you to keep working with a GI doctor to solve your chronic emesis and abdominal pain. Referrals: FRANKI VILLAFANA MD (PCP) ISABELL MAYEN MD Dec 02, 2024 05:14
[2024-12-02 05:16] LABS: CREATININE 0.8 mg/dL (0.5-1.0); GLOMERULAR FILTR. RATE CALC 93.0 mL/min (>90); GLUCOSE,RANDOM 89.0 mg/dL (70-105); SODIUM SERUM 136.0 mmol/L (136-145); UREA NITROGEN, BLOOD 3.0 mg/dL (7-18)
[2024-12-02 05:25] LABS: APPEARANCE,URINE CLEAR (CLEAR); GLUCOSE, URINE (UA) NEGATIVE (NEGATIVE); LEUKOCYTE ESTERASE ,URINE NEGATIVE Leu/uL (NEGATIVE); NITRATE,URINE NEGATIVE (NEGATIVE); OCCULT BLOOD,URINE MODERATE (NEGATIVE)
[2024-12-02] MEDS: DICYCLOMINE HCL 10 MG/5 ML ML PO ONE (05:26)
[2024-12-02] MEDS: MAG/ALUM/SIMETH 30 ML UDCUP PO ONE (05:26)
[2024-12-02 05:27] LABS: HCG,QUALITATIVE URINE NEGATIVE (NEGATIVE)
[2024-12-02] MEDS: LIDOCAINE HCL 2% VISCOUS 15 ML UDCUP PO ONE (05:27)
[2024-12-02 05:28] LABS: ADD UA MICROSCOPIC YES; SQUAMOUS EPITHELIAL CELL,UR RARE /HPF (0-2)
[2024-12-02] MEDS: MAGNESIUM 2GM PREMIX 50ML 50 ML IV SCH (06:21)
== END 2024-12-02 07:34 | disposition home or self-care (01) ==
LOC: EDH 04:23
DX: R11.2 Nausea with vomiting, unspecified (principal); R10.9 Unspecified abdominal pain; E83.42 Hypomagnesemia; Z90.49 Acquired absence of other specified parts of digestive tract; Z98.2 Presence of cerebrospinal fluid drainage device; Z79.899 Other long term (current) drug therapy
CPT/HCPCS: 99284; 96374; 96375; 83735; 80048; 85025; 81001; 81025; 36415; J3475; J2405; J1171

== ENCOUNTER 2024-12-17 00:46 | Inpatient (IN) | payer MEDICAID ==
[~2024-12-17] VITALS: Ht 147.3 cm; Wt 63.3 kg
--- NOTE | 2024-12-17 01:06 | ERN ---
ED Note History of Present Illness Stated Complaint: C/O SEIZURE YESTERDAY AT 1700, N X V, ABD PAIN Chief Complaint: Multiple Complaints Time Seen by MD: 00:58 Dictation: This is a 44-year-old female with known history of spina bifida and multiple medical problems presented to the emergency room with complaints of a seizure at 5:00 p.m. on 12/17/2019 5. She has a intractable nausea vomitings and she was recently discharged on 12/02/2024 after course of hospitalization. Prior to that she was admitted to [facility] with similar complaints. She stated that her abdomen issues have been extensively evaluated and she had multiple surgeries as a child due to spina bifida. She had an expiratory laparotomy with an intention to do adhesiolysis and resection of some of the small-bowel but that could not be accomplished per patient. She has nausea vomitings chronically. As far a seizure is concerned patient takes her antiepileptic medications at 8:00 p.m. daily. No hematemesis or melena. Abdominal pain is diffuse Temperature 97.6 pulse 54 respirations 20 blood pressure 117/76 pulse ox is 100% on room air Her other chronic medical problems include spina bifida, chronic seizures on Keppra 1000 mg p.o. 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 and abdominal issues with the chronic nausea vomitings and abdominal pain with history of multiple abdominal surgeries as a baby Allergies: Coded Allergies: No Known Drug Allergies (Verified Allergy, Unknown, 07/12/20) Home Meds Active Scripts Dicyclomine HCl (Bentyl) 20 Mg Tab, 1 TAB PO BID for irritable bowel symptoms for 10 Days, #20 TAB 0 Refills Prov:NATALIYA JURADO MD 11/16/24 Dicyclomine HCl (Bentyl) 10 Mg Cap, 1 CAP PO Q6HPRN PRN for irritable bowel symptoms for 25 Days, #100 CAP 0 Refills Prov:ISABELL MAYEN MD 11/04/24 Reported Medications Levetiracetam (Levetiracetam) 1,000 Mg Tablet, 1 TAB PO BID for SEIZURES 07/25/24 Linaclotide (Linzess) 290 Mcg Capsule, 1 CAP PO DAILY for 30 Days, #30 CAP 0 Refills 07/17/24 Past Medical History Past Medical History: Endometriosis, Seizure, Other Additional Past Medical Hx: SPINAL BIFIDA Surgical History: Other Surgical History Other: ARTIFACTS CONSERVATOR SHUNT, 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 Family History: Negative Social History: Negative, Lives with family, Other History: Not Applicable : 0 RN Note Reviewed/Agreed w/PFSH: Yes Review of System Dictation Constitutional: Negative for fever,chills, and weight loss Eyes: Negative for injury, pain,redness, and discharge ENT: Negative for injury,pain or swelling Cardiovascular: Negative for chest pain, palpitations, and edema Respiratory: Negative for shortness of breath, cough, and wheezing, Abdomen/GI: Positive for abdominal pain, nausea, vomiting, diarrhea, and constipation Back: Negative for injury and pain : Negative for injury, bleeding and discharge MS/Extremity: Negative for injury and deformity Skin: Negative for rash, and discoloration Neuro: Negative for headache, weakness, numbness, tingling, and positive for seizure Psych: Negative for suicide ideation, homicidal ideation, and hallucinations Initial Vital Sign VS Vital Signs Date Time Temp Pulse Resp B/P (MAP) Pulse Ox O2 Delivery O2 Flow Rate FiO2 12/17/24 00:49 97.5 54 20 117/76 100 Room Air 12/17/24 01:25 0 21 Physical Exam Dictation General: awake, alert, NAD chronically ill-appearing Head/Face: Normocephalic, atraumatic Eyes: PERRL, EOMI, vision at baseline ENT: oral cavity clear, TMs clear, no signs of infection Neck: Trachea midline, supple, no nuchal rigidity Cardiovascular: RRR, normal S1/S2, No MRGs, no JVD Respiratory: CTAB, no respiratory distress, No rales or wheezes Abdomen: Soft, diffusely tender, non-distended, normal bowel sounds, no guarding or rebound. Well-healed extensive mid umbilical scar from her expiratory laparotomy Skin: Warm, dry, normal turgor, no rash MS/Extremity: Pulses equal, no cyanosis, neurovascular intact, FROM Neuro: COAx4, GCS 15, strength 5/5, CN 2-12 intact, atrophy of the lower extremity muscle Psych: Normal behavior, mood, and affect normal Extremities-trace edema without any palpable cords, Homans sign is negative Results (Laboratory/Radiology) Laboratory/Radiology Laboratory Tests Test 12/17/24 01:40 White Blood Count 5.2 K/uL (4.8-10.8) Red Blood Count 3.47 MIL/uL (4.00-5.50) L Hemoglobin 8.6 g/dL (12.0-16.0) L Hematocrit 27.6 % (36-48) L Mean Corpuscular Volume 79.5 fL (79-99) Mean Corpuscular Hemoglobin 24.8 pg (27.0-33.0) L Mean Corpuscular Hemoglobin Concent 31.2 g/dL (32.0-36.0) L Red Cell Distribution Width 15.1 % (11.0-15.5) Platelet Count 304 K/uL (130-400) Mean Platelet Volume 10.2 fL (7.5-10.5) Immature Granulocyte % (Auto) 0.2 % (0-1) Neutrophils (%) (Auto) 57.9 % (40.0-77.0) Lymphocytes (%) (Auto) 31.5 % (21.0-51.0) Monocytes (%) (Auto) 8.1 % (3.0-13.0) Eosinophils (%) (Auto) 2.1 % (0.0-8.0) Basophils (%) (Auto) 0.2 % (0.0-5.0) Neutrophils # (Auto) 3.0 K/uL (1.8-7.7) Lymphocytes # (Auto) 1.6 K/uL (1.0-4.8) Monocytes # (Auto) 0.4 K/uL (0.1-1.0) Eosinophils # (Auto) 0.11 K/uL (0.00-0.70) Basophils # (Auto) 0.01 K/uL (0.00-0.20) Absolute Immature Granulocyte (auto 0.01 K/uL (0-1) Nucleated Red Blood Cells 0.0 % (0.0-0.19) Red Blood Cell Morphology See comments Sodium Level 132 mmol/L (136-145) L Potassium Level 3.0 mmol/L (3.5-5.1) *L Chloride Level 99 mmol/L (101-111) L Carbon Dioxide Level 27 mmol/L (21-32) Blood Urea Nitrogen 3 mg/dL (7-18) L Creatinine 0.7 mg/dL (0.5-1.0) Glomerular Filtration Rate Calc 109 mL/min (>90) Random Glucose 97 mg/dL (70-105) Whole Blood Ketones Quantitative < 0.1 mmol/L (0.0-0.6) Total Calcium 8.6 mg/dL (8.5-10.1) Ammonia < 10 umol/L (11-32) L Total Creatine Kinase 53 U/L (21-232) # Human Chorionic Gonadotropin, Quant 0 mIU/mL (0-5) Serum Alcohol 4 mg/dL (0-10) Labs Reviewed?: Yes EKG Comment: Twelve lead EKG done on 12/17/2024 at 1:20 a.m. showed a heart rate of 65, VT i nterval 138, QRS 92, QT/QTC 449/467 Impression normal sinus rhythm with nonspecific ST-T changes overall low voltage. EKG rhythm strip shows a normal sinus rhythm no acute STT wave changes noted. Interpreted by ER MD Dr. Solorio ED Course ED Course Orders Procedure Category Date Status Time Cbc With Differential LAB 12/17/24 Complete 01:00 Basic Metabolic Panel LAB 12/17/24 Complete 01:00 Alcohol, Blood LAB 12/17/24 Complete 01:00 Ammonia LAB 12/17/24 Complete 01:00 Hcg,Quantitative LAB 12/17/24 Complete 01:00 Ketone Blood LAB 12/17/24 Complete Quantitative 01:00 Urinalysis Profile LAB 12/17/24 Logged 01:00 Creatine Kinase, Total LAB 12/17/24 Complete 01:00 0.9%Nacl 1000ml (Ns PHA 12/17/24 Complete 1000ml) 01:00 Levetiracetam 500 PHA 12/17/24 Complete Mg/5 M[address] Sd V (Keppra 5 01:30 12 Lead Ekg Tracing- EKG 12/17/24 Logged Technical 01:00 Seizure Precautions CPOE 12/17/24 Transmitted 01:00 Morphine 4mg Syg PHA 12/17/24 Complete (Morphine 4mg Syg) 02:00 Ct Abdomen/Pelvis W/O CT 12/17/24 Logged Contrast 01:56 Current Medications Medications (Trade) Dose Ordered Sig/Sandi Route PRN Reason Start Time Stop Time Status Last Admin Dose Admin Levetiracetam 1500 mg/Sodium Chloride 100 ml @ 400 mls/hr ONCE ONCE IV 12/17/24 01:30 12/17/24 01:44 DC 12/17/24 01:43 Morphine Sulfate (morPHINE 4MG SYG) 4 mg ONCE ONCE IVP 12/17/24 02:00 12/17/24 02:01 DC 12/17/24 01:56 Sodium Chloride 1,000 ml @ 0 mls/hr ONCE ONCE IV 12/17/24 01:00 12/17/24 01:05 DC 12/17/24 01:43 Vital Signs Date Time Temp Pulse Resp B/P (MAP) Pulse Ox O2 Delivery O2 Flow Rate FiO2 12/17/24 02:15 68 17 118/54 99 Room Air* 0 21 12/17/24 01:25 97.5 69 18 109/81 99 Room Air* 0 21 12/17/24 00:49 97.5 54 20 117/76 100 Room Air We will perform diagnostic labs, advanced imaging and administer medications according to the patient's complaint. Once the results are available, will review and personally interpreted the labs to rule out any acute life- threatening emergency the trach require immediate intervention and treatment. I will then re-evaluate the patient after treatment and diagnostic exams have return to determine whether the patient requires any further testing, can safely be discharged home or need further admission to hospital for additional treatment and evaluation. 2:30 a.m. patient accepted by [facility] mid-level provider for hospitalist group for admission and monitoring of seizures and optimizing management for intractable nausea vomitings. CT abdomen and pelvis is pending at this time Medical Decision Making MDM Differential diagnosis: Seizure secondary to inadequate antiepileptic levels, dehydration and poor absorption secondary to intractable nausea vomitings, gastritis, gastroparesis, small-bowel obstructions This is a 44-year-old female with known history of spina bifida and multiple medical problems presented to the emergency room with complaints of a seizure at 5:00 p.m. on 12/17/2019 5. She has a intractable nausea vomitings and she was recently discharged on 12/02/2024 after course of hospitalization. Prior to that she was admitted to [facility] with similar complaints. She stated that her abdomen issues have been extensively evaluated and she had multiple surgeries as a child due to spina bifida. She had an expiratory laparotomy with an intention to do adhesiolysis and resection of some of the small-bowel but that could not be accomplished per patient. She has nausea vomitings chronically. As far a seizure is concerned patient takes her antiepileptic medications at 8:00 p.m. daily. No hematemesis or melena. Abdominal pain is diffuse Temperature 97.6 pulse 54 respirations 20 blood pressure 117/76 pulse ox is 100% on room air Her other chronic medical problems include spina bifida, chronic seizures on Keppra 1000 mg p.o. 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 labs reviewed CBC showed a hemoglobin of 8.6. Hemoglobin has progressively gone down from 12.7 since September 2024. White count is 5.3 platelets 304. BNP 7 is significant for a sodium of 132 chloride [address] abdomen and pelvis is pending at this time I recommended admission to the hospital for monitoring, seizure precautions and controlling the nausea vomitings. Rationale: Tests considered and ordered secondary to shared decision making include: labs, ECG and radiology Previous outside records reviewed: Old ER visits. Risk of complication and/or morbidity or mortality of patient management: None Medications-Per medication reconciliation Need for hospitalization: Patient does meet criteria for hospitalization. Need for emergency major/minor surgery: No There are no social concerns with this patient. Prescription drug management Prescriptions will include symptomatic care Patient's prior external medical records from other ER visits were reviewed by me as indicated. Prior testing and results from previous visits were reviewed. Prior tests were taken into account with medical decision making and resource utilization, independent historian/historians were used to obtain complete medical history. I independently interpreted the test that were performed, results were reviewed by me and considered findings on radiology if ordered. Medical management and examination interpretation discussions were had by me with other qualified healthcare professionals as indicated for the patient's care. DX & DISP Disposition: Inpatient Decision to Admit Time: 02:32 Departure Impression: Primary Impression: Breakthrough seizure Additional Impressions: Spina bifida, Intractable nausea and vomiting, Hypokalemia, Dehydration, Progressive anemia Condition: Stable Additional Instructions: Patient was informed of all the diagnostic labs and procedures conducted in the emergency room today and demonstrated understanding of the results. I personally reviewed and interpreted all the diagnostic exams performed in the ER today. The patient will be admitted to the hospital for further treatment and evaluation. Disposition-admit to facility Condition-stable/guarded Course-uncertain at this time Pain status-decreased Assessment-exam unchanged Admission Certification- I certify that the patients status is appropriate and is based on my best clinical judgment and the patient's condition as documented in the medical records Referrals: FRANKI VILLAFANA MD (PCP) HUMERA SOLORIO MD Dec 17, 2024 01:06
--- NOTE | 2024-12-17 01:12 | NUR ---
PT CARE ASSUMED AT THIS TIME
[2024-12-17] MEDS: 0.9%NACL 1000ML 1,000 ML IV ONE (01:43)
[2024-12-17] MEDS: leveTIRACEtam 500 MG/5 ML SD V 1,500 MG in 0.9%NACL 100ML 100 ML IV ONE (01:43)
[2024-12-17 01:47] LABS: IMMATURE GRANULOCYTE ABSOLUTE 0.01 K/uL (0-1); NUCLEATED RED BLOOD CELLS 0.0 % (0.0-0.19); PLATELET COUNT (AUTO) 304 K/uL (130-400); RED BLOOD CELL COUNT(AUTO) 3.47 MIL/uL (4.00-5.50); RED CELL DISTRIBUTION WIDTH 15.1 % (11.0-15.5); WHITE BLOOD COUNT (AUTO) 5.2 K/uL (4.8-10.8)
[2024-12-17 02:16] LABS: ALCOHOL, BLOOD 4 mg/dL (0-10); CREATINE KINASE, TOTAL 53 U/L (21-232); CREATININE 0.7 mg/dL (0.5-1.0); GLOMERULAR FILTR. RATE CALC 109 mL/min (>90); GLUCOSE,RANDOM 97 mg/dL (70-105); HCG,QUANTITATIVE 0 mIU/mL (0-5); SODIUM SERUM 132 mmol/L (136-145); UREA NITROGEN, BLOOD 3 mg/dL (7-18)
--- NOTE | 2024-12-17 03:07 | HP ---
History of Present Illness Reason for Visit: seizure Referring MD: Dr. Jorge Negron History of Present Illness Ms. Fong is a 44-year-old female that was seen and examined today on 12/17/2024. Patient is a good historian of personal health Patient reports that she came to the emergency department with a chief complaint of seizures. Onset was 12/16/2024 at 5:00 p.m.. Location is head. Duration is on and off. Character is described as shaking. There was no alleviating factors. There was no aggravating factors. Patient reports associated nausea, vomiting abdominal pain. Today in the emergency department hemoglobin 8.6, hematocrit 27.6, potassium 3.0 CT of abdomen and pelvis has been ordered in the emergency department but has not been performed and there was no results available. Emergency room physician recommended that patient be admitted with a diagnosis of seizures and hypokalemia. No urinalysis has been collected or sent to lab. Past Medical History Patient History: Cancer MOTHER, Onset:Unknown (cancer in uterus) Chronic obstructive pulmonary disease BROTHER FH: depression BROTHER, Onset:5 SISTER, Onset:19 Family history: Asthma MOTHER, Onset:[place] Family history: Diabetes mellitus MOTHER, Onset:Unknown FATHER BROTHER SISTER Family history: Hypertension MOTHER, Onset:Unknown FATHER, Onset:Unknown Stroke MOTHER FATHER, Onset:60 years & older No Family History of: Chronic obstructive lung disease Family history: Alzheimer's disease Family history: Cardiovascular disease Parkinson's disease Sudden Unknown PAST MEDICAL HISTORY: [Anxiety, neurogenic bladder, spinal bifida, chronic pancreatitis, gastroparesis, seizures, depression, BP shunt, recent UTI positive for Klebsiella pneumoniae, recent fluid collection in the abdomen positive for Enterococcus faecalis, recurrent utis PAST SURGICAL HISTORY: [ J-tube placement, small bowel resection, av shunt placement, colostomy placement and closure, cholecystectomy, appendectomy ] PAST SOCIAL HISTORY: [ Patient denies any alcohol use, patient denies well. Patient denies illicit d rug use. patient lives with her roommate, Zachary. Review of Systems General: No Fever, No Chills, No Night Sweats, No Fatigue, No Malaise, No Appetite, No Other HEENT: No Head Aches, No Visual Changes, No Eye Pain, No Ear Pain, No Dysphasia, No Sinus Congestion, No Post Nasal Drip, No Sore Throat, No Other Pulmonary: No Dyspnea, No Cough, No Pleuritic Chest Pain, No Other Cardiovascular: No: Chest Pain, Palpitations, Orthopnea, Paroxysmal Noc. Dyspnea, Edema, Lt Headedness, Other Gastrointestinal: No: Nausea, Vomiting, Abdominal Pain, Diarrhea, Constipation, Melena, Hematochezia, Other Genitourinary: No Dysuria, No Frequency, No Incontinence, No Hematuria, No Retention, No Other Musculoskeletal: No: other, neck pain, shoulder pain, arm pain, back pain, hand pain, leg pain, foot pain Skin: No Urticaria, No Rash, No Other Neurological: Seizures; No: Weakness, Numbness, Incoordination, Change in speech, Confusion, Other Allergies: Coded Allergies: No Known Drug Allergies (Verified Allergy, Unknown, 07/12/20) Scheduled Dicyclomine HCl (Bentyl), 1 TAB PO BID Levetiracetam (Levetiracetam), 1 TAB PO BID, (Reported) Linaclotide (Linzess), 1 CAP PO DAILY, (Reported) Scheduled PRN Dicyclomine HCl (Bentyl), 1 CAP PO Q6HPRN PRN for irritable bowel symptoms Exam Vital Signs Vital Signs Date Time Temp Pulse Resp B/P (MAP) Pulse Ox O2 Delivery O2 Flow Rate FiO2 12/17/24 02:15 68 17 118/54 99 Room Air* 0 21 12/17/24 01:25 97.5 General Appearance: Alert, Oriented X3, Cooperative, No acute distress HEENT: Atraumatic, EOMI, Mucous membr. moist/pink Respiratory: Clear to auscultation, Normal air movement, NL respiratory effort Cardiovascular: Regular rate, Regular rhythm, Normal S2 Abdominal: Normal bowel sounds, Soft, No tenderness Extremities: No edema Skin: No significant lesion Neuro: Normal speech, Strength at 5/5 X4 ext, Sensation intact, Cranial nerves 3-12 NL Psych/Mental Status: Mental status NL, Mood NL, Thoughts/Content NL Assessment/Plan ASSESSMENT: [ Seizures, POA Hypokalemia, POA Nausea, vomiting, POA Chronic anemia, POA Anxiety Neurogenic bladder Spina bifida Depression] Chronic UTIs with a central line in place to the right chest, patient states last antibiotics for two weeks ago, patient states her infectious disease doctor, Dr. Ferrera told her she did not need anymore outpatient antibiotics. PLAN: [ Admit patient to medical floor as inpatient status. Place patient on telemetry monitoring Seizures: Seizure precautions Start patient's home medication of levetiracetam 1000 mg twice daily Hypokalemia, nausea and vomiting: As-needed antiemetic, Zofran Replace potassium per hospital protocol GI soft diet Chronic anemia, anxiety, neurogenic bladder, spina bifida, depression: Consider resuming home medications once they have been reconciled. At time of admission home medications have not been reconciled. Monitor patient's labs. Ad as needed anxiety medication for any exacerbations. GI prophylaxis, famotidine DVT prophylaxis, Christiano's and SCDs ADVANCED CARE PLANNING 1. Which of the following were discussed? Hospice Care - Yes Therapeutic options - yes Advance Directives - Yes - patient states he does not have any advance directives in place at this time. Patient states her dad, Vipul Palomares can make decisions for her if she becomes unable. Other discussions - patient wishes to remain a full code 2. Discussed with who? Patient 3. Voluntary nature of this service was explained to the patient? Yes 4. Amount of time spent - ___17 minutes____ 5. Reviewed by Physician? (if this service was performed by NPP) Yes This document was generated in part using voice recognition software, occasional wrong word or sound alike substitutions may have occurred due to the inherent limitations of voice recognition software. Read the chart carefully and recognize using context, where the substitutions have occurred. Although every effort was made to edit the content, finance and administration manager and typing errors may occur ATTESTATION BY PHYSICIAN I have seen and examined the patient. I reviewed the documentation, medical decision making, and treatment plan as noted by the mid-level provider above. I agree with the findings and plan of care. [facility] Dec 17, 2024 03:06
[2024-12-17] MEDS ORDERED: LACTULOSE 20 GM/30 ML UDCUP PO PRN (03:30)
[2024-12-17 04:33] LABS: APPEARANCE,URINE CLEAR (CLEAR); GLUCOSE, URINE (UA) NEGATIVE (NEGATIVE); LEUKOCYTE ESTERASE ,URINE 75 Leu/uL (NEGATIVE); NITRATE,URINE NEGATIVE (NEGATIVE); OCCULT BLOOD,URINE MODERATE (NEGATIVE)
[2024-12-17 04:35] LABS: ADD UA MICROSCOPIC YES
[2024-12-17 04:36] LABS: NON-SQUAMOUS EPITHELIAL CELL 2 /HPF (0-2); SQUAMOUS EPITHELIAL CELL,UR MANY /HPF (0-2)
--- NOTE | 2024-12-17 04:45 | HMCIMG ---
EXAM: CT Abdomen and Pelvis without IV contrast CLINICAL HISTORY: Nausea vomiting. Abdominal pain. TECHNIQUE: Thin collimated axial CT images of the abdomen and pelvis were obtained, with sagittal and coronal reformatted images also submitted. A CT scan is done according to ALARA (As Low As Reasonably Achievable). CONTRAST: None. COMPARISON: CT abdomen pelvis dated 10/29/2024. FINDINGS: The included lungs are clear. No focal abnormality within the liver, pancreas, spleen, or adrenals. Status postcholecystectomy. Dilated CBD and intrahepatic ducts; the CBD measures up to 1.2 cm in diameter. Focal cortical scarring with mild caliectasis around the bilateral renal midpole regions. Unremarkable left kidney. Excreted contrast within the bilateral renal collecting systems, ureters, and urinary bladder limits the optimal evaluation of renal system calculi. Chronic cystitis. Questionable encircling object around the urinary bladder outlet, which is connected with the tubular system that terminates around the right side of the labia majora. The uterus and ovaries are within normal limits. No obvious bowel wall thickening, dilatation, or obstruction. Unremarkable appendix. Partially visualized ventriculoperitoneal shunt. Small ascites is evident, more pronounced at the left lumbar quadrant and pelvic regions. No pneumoperitoneum. Limited evaluation of the abdominal vessels due to the lack of intravenous contrast. No abdominal aortic aneurysm is evident. No pathological lymphadenopathy in the abdomen or pelvis. No pneumoperitoneum. No acute bony abnormality is evident. Questionable Tarlov cysts around the lumbosacral region. IMPRESSIONS: No acute process in the abdomen or pelvis. Chronic cystitis. A questionable encircling object around the urinary bladder outlet, which is connected with the tubular system that terminates around the right side of the labia majora. Status postcholecystectomy. Dilated CBD and intrahepatic ducts; the CBD measures up to 1.2 cm in diameter. Small ascites is evident, more pronounced at the left lumbar quadrant and pelvic regions. Questionable Tarlov cysts around the lumbosacral region. Compared to the prior study, there is no significant interval change. /[place]
--- NOTE | 2024-12-17 06:28 | EKG ---
[facility] Test Date: 2024-12-17 Test Time: 01:20:57 Pat Name: OVIDIO DORSEY Department: [facility]HIP Room: 301 Gender: F Early Childhood: [id number] : 1980 Requested By: HUMERA FARRELL Order Number: [id number] Reading MD: Basilia Mcgrath Measurements Intervals [place] Rate: 65 P: -9 DC: 138 QRS: 9 QRSD: 92 T: 6 QT: 449 QTc: 467 Interpretive Statements Sinus rhythm Low voltage, precordial leads Borderline T abnormalities, diffuse leads Compared to ECG 11/16/2024 15:21:44 T-wave abnormality now present Electronically Signed On 12-19-2024 08:35:01 CDT by Basilia Mcgrath Please click the below link to view image of tracing.
--- NOTE | 2024-12-17 07:15 | NUR ---
REPORT GIVEN HERNESTO RN AT THIS TIME
[2024-12-17 08:07] LABS: CREATININE 0.6 mg/dL (0.5-1.0); GLOMERULAR FILTR. RATE CALC 113.0 mL/min (>90); GLUCOSE,RANDOM 90.0 mg/dL (70-105); SODIUM SERUM 139.0 mmol/L (136-145); UREA NITROGEN, BLOOD 4.0 mg/dL (7-18)
--- NOTE | 2024-12-17 09:07 | NUR ---
SPOKE TO CORETTA RN IN REGARD TO CANCELLING IR PROCEDURE
[2024-12-17] MEDS: FAMOTIDINE 20MG TAB PO SCH (09:39)
[2024-12-17 10:04] LABS: ASPARTATE AMINOTRANSFERASE 14.0 U/L (10-37); TOTAL PROTEIN, SERUM 5.7 g/dL (6.0-8.3)
[2024-12-17] MEDS ORDERED: PHENOL 177 ML BOTTLE PO PRN (14:30)
--- NOTE | 2024-12-17 15:04 | NUR ---
DCP:HOME Pt currently lives at home with a roommate. Pt does have a walker, cane, and wheelchair at home. Pt has a provider that assists her 5hrs a day and assists with all ADLs, home management, and meals. PCP is Dr. Jorge Negron and uses [facility] for any RX needs. At [place] pt will want to go home and family can assist with transportation. Addendum: 12/17/24 at 1506 by CECIL GARCIA SS Amended: Links added.
--- NOTE | 2024-12-17 15:24 | NUR ---
SPOKE TO DR NELSON OVER PHONE IN REGARDS TO NEW CONSULT
[2024-12-17 16:17] LABS: AMPHET/METH SCREEN,URINE NEGATIVE (NEGATIVE); BARBITURATE SCREEN, URINE NEGATIVE (NEGATIVE); CANNABINOID SCREEN,URINE NEGATIVE (NEGATIVE); COCAINE SCREEN,URINE NEGATIVE (NEGATIVE)
--- NOTE | 2024-12-17 17:15 | PN ---
[facility] PROGRESS NOTE Date of Service: Dec 17, 2024 Time of Service: 17:10 SUBJECTIVE: She is a 44-year-old female with past medical history of anxiety, neurogenic bladder, spina bifida, chronic pancreatitis, gastroparesis, seizures, depression, BP shunt, recent UTI positive for Klebsiella pneumoniae, recent fluid collection in the abdomen positive for Enterococcus faecalis, recurrent utis and surgical history of J-tube placement, small bowel resection, vp product marketing shunt placement, colostomy placement and closure, cholecystectomy, appendectomy. She also takes linzes and vonnie for constipation. She has a bladder reconstructive surgery and has a sphincter in her bladder which is helping her to pee. Patient denies any alcohol use, patient denies well. Patient denies illicit drug use. patient lives with her roommate, Zachary. She came to the ER with chief complaint of seizures. She also has nausea vomiting and abdominal pain. Two months back she was admitted to [facility] [place] for UTI there she was treated with tobramycin, gentamicin and vancomycin. On discharge a PICC line is placed. In the emergency department hemoglobin 8.6, hematocrit 27.6, potassium 3.0 CT of abdomen and pelvis has been ordered. Keppra is started for seizures. The patient is admitted for further management. 12/17/2024: Patient is seen and evaluated in the ER. She is having abdominal pain and headache. Her abdomen is tender on palpation. She has headache on right temporal region. She describes the headache as a throbbing and its associated with nausea and vomiting. She is having break through seizures. Her vitals are in the normal range. Her labs are normal except for BUN is 4, lipase is 11, Hb is 8.6, RBC is 3.47. Her urinalysis show leukocyte esterase is 75, WBC is 6 to 10, RBC is 6 to 10. We sent urine for culture and gave her ceftriaxone. She is on keppra drip which is changed to oral. Her head CT is normal. We ordered a GI consult and neurology consult. She requesting morphine for pain and her pain is not controlled with hydromorphone. So we added morphine and lidocaine. She also has a PICC line placed. When we asked about the PICC line she said that she is having recurrent UIT every 2 weeks and the organisms causing the infection are resistant to all oral antibiotics so they are giving IV antibiotics. They left the PICC line in place as they couldn't find veins to place catheter and she needs IV antibiotics frequently. She gets tobramycin, vancomycin and gentamicin for UTI. She said Dr. Blackmon recommended residential antibiotics. Also she goes to [facility] for antibiotics because [facility] doesn't accept her insurance also there they clean her PICC line. We requested the records from [facility] [place]. REVIEW OF SYSTEMS CONSTITUTIONAL: Denies fevers, chills, or night sweats. No unintentional weight loss reported. NEUROLOGICAL: Denies headache, amaurosis fugax, motor weakness, sensory deficit, vertigo/spinning sensation, gait abnormalities, or tremors. ENT: No hearing loss, otalgia, otorrhea, rhinitis, rhinorrhea, hoarseness, or sore throat. CARDIOVASCULAR: Denies any exertional angina, dyspnea on exertion, orthopnea, paroxysmal nocturnal dyspnea, palpitations, life-threatening arrhythmias, claudication. PULMONARY: Denies any shortness of breath, cough, phlegm/sputum, hemoptysis, pleuritic chest pain. SLEEP: Denies morning headaches, daytime somnolence or napping. Denies difficulty falling asleep, staying asleep, waking from sleep. Denies knowledge of snoring. GASTROINTESTINAL: Denies any type of dysphagia to either liquids or solids. Denies nausea, vomiting, pyrosis, early satiety, abdominal pain, diarrhea, constipation, or changes in stool consistency or caliber. Denies coffee-ground emesis, hematemesis, hematochezia, or melanotic stools. GENITOURINARY: Denies frequency, urgency, nocturia, hematuria or incontinence (Storage/Irritative symptoms.) Low urinary stream, straining to void, urinary intermittency or hesitancy, splitting of the voiding stream, terminal dribbling. ENDOCRINOLOGIC: Denies polyuria, polydipsia, polyphagia or heat/cold intolerances. HEMATOLOGIC: Denies thrombophilia/previous clots, or coagulopathy/bleeding disorders. ONCOLOGIC: Denies personal history of malignancy. DERMATOLOGIC: Denies rashes or pruritus. PSYCHIATRIC: Denies any suicidal or homicidal ideation. Denies hallucinations. PHYSICAL EXAM GENERAL APPEARANCE: The patient is awake, alert, and oriented, in no acute c ardiopulmonary distress. NEUROLOGICAL: Cranial nerves II-XII grossly intact. Motor is 5/5 in bilateral upper and lower extremities proximal to distal. No sensory deficits. HEENT: Face is symmetric. Pupils are equal and reactive. Extraocular movements are intact. NECK: Supple. No JVD. No thyromegaly. No submental, submandibular, pre- /postauricular, occipital or supraclavicular lymphadenopathy. CHEST: Normal chest expansion. No Telemetry. LUNGS: Absence of any rales, rhonchi or any wheezing. CARDIOVASCULAR: Regular. S1 and S2 normal. No appreciable rubs, murmurs or gallops. ABDOMEN: Soft, nontender, and nondistended. There is no rebound, voluntary guarding, or rigidity. : Deferred. No Carnes. EXTREMITIES: Non-edematous and not cyanotic. No clubbing. Good capillary refill. SKIN: No skin breakdown. Vital Signs (last 8hr) Date Time Temp Pulse Resp B/P (MAP) Pulse Ox O2 Delivery O2 Flow Rate FiO2 12/17/24 13:10 98.4 70 20 109/61 99 Room Air* 0 21 LABS: Laboratory: Test 12/17/24 09:36 12/17/24 07:40 12/17/24 04:04 12/17/24 01:40 Range/Units Lactic Acid Level 0.9 0.8-2.5 mmol/L Total Bilirubin 0.3 0.2-1.0 mg/dL Direct Bilirubin 0.1 0.0-0.3 mg/dL Aspartate Amino Transf (AST/SGOT) 14 10-37 U/L Alanine Aminotransferase (ALT/SGPT) 22 12-78 U/L Alkaline Phosphatase 129 50-136 U/L Total Protein 5.7 L 6.0-8.3 g/dL Albumin 3.0 L 3.5-5.0 g/dL Lipase 11 L 16-77 U/L Sodium Level 139 136-145 mmol/L Potassium Level 3.5 3.5-5.1 mmol/L Chloride Level 107 101-111 mmol/L Carbon Dioxide Level 26 21-32 mmol/L Blood Urea Nitrogen 4 L 7-18 mg/dL Creatinine 0.6 0.5-1.0 mg/dL Glomerular Filtration Rate Calc 113 >90 mL/min Random Glucose 90 70-105 mg/dL Total Calcium 7.8 L 8.5-10.1 mg/dL Urine Color LIGHT-YELLOW YELLOW Urine Appearance CLEAR CLEAR Urine pH 6.5 5.0-8.0 Urine Specific [place] >1.031 1.001-1.031 Urine Protein NEGATIVE NEGATIVE mg/dL Urine Glucose (UA) NEGATIVE NEGATIVE mg/dL Urine Ketones NEGATIVE NEGATIVE mg/dL Urine Occult Blood MODERATE H NEGATIVE Urine Nitrate NEGATIVE NEGATIVE Urine Bilirubin NEGATIVE NEGATIVE mg/dL Urine Urobilinogen 0.2 0.2-1.0 mg/dL Urine Leukocyte Esterase 75 H NEGATIVE [place]/uL Urine RBC 6-10 H 0-1 /HPF Urine WBC 6-10 H 0-1 /HPF Urine Squamous Epithelial Cells MANY 0-2 /HPF Urine Non-Squamous Epithelial Cells 2 0-2 /HPF Urine Bacteria RARE None Seen /HPF Urine Opiates Screen NEGATIVE NEGATIVE Urine Barbiturates Screen NEGATIVE NEGATIVE Urine Phencyclidine Screen NEGATIVE NEGATIVE Urine Amphetamines Screen NEGATIVE NEGATIVE Urine Benzodiazepines Screen POSITIVE H NEGATIVE Urine Cocaine Screen NEGATIVE NEGATIVE Urine Marijuana (THC) Screen NEGATIVE NEGATIVE White Blood Count 5.2 4.8-10.8 K/uL Red Blood Count 3.47 L 4.00-5.50 MIL/uL Hemoglobin 8.6 L 12.0-16.0 g/dL Hematocrit 27.6 L 36-48 % Mean Corpuscular Volume 79.5 79-99 fL Mean Corpuscular Hemoglobin 24.8 L 27.0-33.0 pg Mean Corpuscular Hemoglobin Concent 31.2 L 32.0-36.0 g/dL Red Cell Distribution Width 15.1 11.0-15.5 % Platelet Count 304 130-400 K/uL Mean Platelet Volume 10.2 7.5-10.5 fL Immature Granulocyte % (Auto) 0.2 0-1 % Neutrophils (%) (Auto) 57.9 40.0-77.0 % Lymphocytes (%) (Auto) 31.5 21.0-51.0 % Monocytes (%) (Auto) 8.1 3.0-13.0 % Eosinophils (%) (Auto) 2.1 0.0-8.0 % Basophils (%) (Auto) 0.2 0.0-5.0 % Neutrophils # (Auto) 3.0 1.8-7.7 K/uL Lymphocytes # (Auto) 1.6 1.0-4.8 K/uL Monocytes # (Auto) 0.4 0.1-1.0 K/uL Eosinophils # (Auto) 0.11 0.00-0.70 K/uL Basophils # (Auto) 0.01 0.00-0.20 K/uL Absolute Immature Granulocyte (auto 0.01 0-1 K/uL Nucleated Red Blood Cells 0.0 0.0-0.19 % Red Blood Cell Morphology See comments Whole Blood Ketones Quantitative < 0.1 0.0-0.6 mmol/L Ammonia < 10 L 11-32 umol/L Total Creatine Kinase 53 # 21-232 U/L Human Chorionic Gonadotropin, Quant 0 0-5 mIU/mL Serum Alcohol 4 0-10 mg/dL Current Medications Medications (Trade) Dose Ordered Sig/Sandi Route PRN Reason Start Time Stop Time Status Last Admin Dose Admin Acetaminophen (TYLenol 325MG TAB) 650 mg Q6H PRN PO TEMPERATURE GREATER THAN 101.5 12/17/24 03:30 01/16/25 03:29 Acetaminophen/ Hydrocodone Bitart (NORco 5/325MG) 1 tab Q4H PRN PO MODERATE PAIN (4-6) 12/17/24 16:00 12/22/24 15:59 Ceftriaxone Sodium (ROCEphine 1G INJ) 1 gm Q24H IVPB 12/17/24 16:00 12/17/24 15:53 DC Famotidine (Pepcid 20mg Tab) 20 mg DAILY PO 12/17/24 09:00 01/16/25 08:59 12/17/24 09:39 20 MG Hydralazine HCl (APRESOLine 20MG INJ) 10 mg Q6H PRN IV For:SBP above 160;DBP above 90 12/17/24 03:30 01/16/25 03:29 Hydromorphone HCl (DiLAUDid 0.5MG INJ) 0.25 mg Q4H PRN IVP SEVERE PAIN (7-10) 12/17/24 04:30 12/17/24 15:41 DC 12/17/24 15:27 0.25 MG Lactulose (Constulose 20gm/ 30ml Udcup) 20 gm BID PRN PO CONSTIPATION 12/17/24 03:30 01/16/25 03:29 Levetiracetam (kepPRA 500 MG TABLET) 1,000 mg BID PO 12/17/24 09:00 01/16/25 08:59 12/17/24 09:39 1,000 MG Morphine Sulfate (morPHINE 4MG SYG) 2 mg Q4H PRN IVP SEVERE PAIN (7-10) 12/17/24 03:30 12/17/24 04:05 DC Ondansetron HCl (zoFRAN 4MG INJ) 4 mg Q6H PRN IV NAUSEA/VOMITING 12/17/24 03:30 01/16/25 03:29 12/17/24 10:55 4 MG Phenol (Sore Throat [place]) 1 SPRAY Q4H PRN PO SORE THROAT 12/17/24 14:30 01/16/25 14:29 Potassium Chloride 40 meq/ Sodium Chloride 1,000 ml @ 200 mls/hr Q5H STAT IV 12/17/24 02:28 12/17/24 07:27 DC 12/17/24 04:01 200 MLS/HR Potassium Chloride 100 ml @ 100 mls/hr AD PRN IV POTASSIUM PROTOCOL 12/17/24 03:30 01/16/25 03:29 DIAGNOSTICS / RADIOLOGY: [place] [address] IMAGING REPORT Signed PATIENT: OVIDIO DORSEY MR#: [id number] : 1980 SEX: F AGE: 44 LOCATION: [facility] ORDER 1432 STATUS: ADM IN REPORT#: [id number] SERVICE 1420 REASON: Seizures ORDERING PHYSICIAN: MAURY BECERRIL MD PROCEDURE: HEAD WO - CT HEAD/BRAIN W/O CONTRAST EXAM: CT Head Without Intravenous Contrast. CLINICAL HISTORY: 44-year-old female with seizures. TECHNIQUE: Axial computed tomography images of the head/brain without intravenous contrast. Dose reduction technique was used including one or more of the following: automated exposure control, adjustment of mA and kV according to patient size, and/or iterative reconstruction. CONTRAST: None. COMPARISON: CT head from 04/06/2024. FINDINGS: BRAIN: There is a right-sided ventricular shunt tip in the anterior aspect of the third ventricle. No acute intraparenchymal hemorrhage. No mass lesion. No CT evidence for acute territorial infarct. No midline shift or extra-axial collection. VENTRICLES: The findings are similar compared to the prior CT head from 04/06/2024 at 3:19 pm. ORBITS: The orbits are unremarkable. SINUSES AND MASTOIDS: The paranasal sinuses and mastoid air cells are clear. SOFT TISSUES: No significant facial or scalp soft tissue swelling evident. No radiopaque foreign body is seen. BONES: No acute skull fracture. IMPRESSION: 1. No acute intracranial abnormality. 2. Right-sided ventricular shunt tip in the anterior aspect of the third ventricle, similar to prior CT head from 04/06/2024 at 3:19 pm. /[place] DICTATED BY: CHARLIE PHAM MD DATE: 12/17/241840 ELECTRONICALLY SIGNED BY: CHARLIE PHAM MD DATE: 12/17/241840 ASSESSMENT: Seizures, POA Urinary tract infection Chronic UTIs with a central line in place to the right chest, patient states last antibiotics for two weeks ago, patient states her infectious disease doctor, Dr. Ferrera told her she did not need anymore outpatient antibiotics. Abdominal pain Hypokalemia, POA Nausea, vomiting, POA Chronic anemia, POA Anxiety Neurogenic bladder Spina bifida Depression Chronic UTIs with a central line in place to the right chest, patient states last antibiotics for two weeks ago, patient states her infectious disease doctor, Dr. Ferrera told her she did not need anymore outpatient antibiotics. PLAN: Seizures, POA She had seizures at the time of admission which stopped with levetiracetam IV. She is currently not having any seizures. Levetiracetam IV was changed to oral. Her CT head is normal. Neurology consult is placed. Urinary tract infection Chronic UTIs with a central line in place to the right chest, patient states last antibiotics for two weeks ago, patient states her infectious disease doctor, Dr. Ferrera told her she did not need anymore outpatient antibiotics. Her urinalysis showed evidence of UIT. We gave a dose of ceftriaxone. Sent urine for culture. She also has a PICC line placed. When we asked about the PICC line she said that she is having recurrent UIT every 2 weeks and the organisms causing the infection are resistant to all oral antibiotics so they are giving IV antibiotics. They left the PICC line in place as they couldn't find veins to place catheter and she needs IV antibiotics frequently. She gets tobramycin, vancomycin and gentamicin for UTI. She said Dr. Blackmon recommended terminal system operator antibiotics. Also she goes to [facility] for antibiotics because [facility] doesn't accept her insurance also there they clean her PICC line. We requested the records from [facility] [place]. Abdominal pain She complained of abdominal pain and her abdomen is tender to touch. She is taking hydromorphone but her pain is not controlled with it and she requests morphine. So we added lidocaine and morphine We placed a GI consult. Hypokalemia, POA Today her blood work showed potassium is increased from 3 to 3.5. Will repeat her labs tomorrow. Nausea, vomiting, POA She complained of nausea and vomiting. Continue ondansetron. We placed a GI consult. Chronic anemia, POA Her lab work show that Hb is 8.6, HCT is 27.6, MCH is 24.8, MCHC is 31.2. Will repeat her labs tomorrow. Anxiety Neurogenic bladder Spina bifida Depression She is on GI soft/bland diet. GI prophylaxis with famotidine. DVT prophylaxis with SCD. ATTESTATION BY PHYSICIAN I have seen and examined the patient. I reviewed the documentation, medical decision making, and treatment plan as noted by the resident provider above. I agree with the findings and plan of care. Dash Perez MD, AKSHAY MD Dec 17, 2024 17:15
--- NOTE | 2024-12-17 17:42 | HMCIMG ---
EXAM: CT Head Without Intravenous Contrast. CLINICAL HISTORY: 44-year-old female with seizures. TECHNIQUE: Axial computed tomography images of the head/brain without intravenous contrast. Dose reduction technique was used including one or more of the following: automated exposure control, adjustment of mA and kV according to patient size, and/or iterative reconstruction. CONTRAST: None. COMPARISON: CT head from 04/06/2024. FINDINGS: BRAIN: There is a right-sided ventricular shunt tip in the anterior aspect of the third ventricle. No acute intraparenchymal hemorrhage. No mass lesion. No CT evidence for acute territorial infarct. No midline shift or extra-axial collection. VENTRICLES: The findings are similar compared to the prior CT head from 04/06/2024 at 3:19 pm. ORBITS: The orbits are unremarkable. SINUSES AND MASTOIDS: The paranasal sinuses and mastoid air cells are clear. SOFT TISSUES: No significant facial or scalp soft tissue swelling evident. No radiopaque foreign body is seen. BONES: No acute skull fracture. IMPRESSION: 1. No acute intracranial abnormality. 2. Right-sided ventricular shunt tip in the anterior aspect of the third ventricle, similar to prior CT head from 04/06/2024 at 3:19 pm. /[place]
[2024-12-17] MEDS: LIDOCAINE 4% ADH..PATCH TP SCH (18:57)
[2024-12-17 19:22] LABS: COVID19 (SARS ANTIGEN RAPID) PRESUMPTIVE NEGATIVE (NEGATIVE); INFLUENZA TYPE A Negative For Type A (NEGATIVE); INFLUENZA TYPE B Negative For Type B (NEGATIVE)
[2024-12-18 06:39] LABS: IMMATURE GRANULOCYTE ABSOLUTE 0.01 K/uL (0-1); NUCLEATED RED BLOOD CELLS 0.0 % (0.0-0.19); PLATELET COUNT (AUTO) 215 K/uL (130-400); RED BLOOD CELL COUNT(AUTO) 3.35 MIL/uL (4.00-5.50); RED CELL DISTRIBUTION WIDTH 15.0 % (11.0-15.5); WHITE BLOOD COUNT (AUTO) 3.6 K/uL (4.8-10.8)
[2024-12-18 06:50] LABS: CREATININE 0.6 mg/dL (0.5-1.0); GLOMERULAR FILTR. RATE CALC 113.0 mL/min (>90); GLUCOSE,RANDOM 88.0 mg/dL (70-105); PHOSPHORUS 2.5 mg/dL (2.5-4.9); SODIUM SERUM 138.0 mmol/L (136-145); UREA NITROGEN, BLOOD 5.0 mg/dL (7-18)
--- NOTE | 2024-12-18 06:50 | NUR ---
DR. NELSON AT BEDSIDE AT THIS TIME
--- NOTE | 2024-12-18 07:23 | CONS ---
CONSULTATION NOTE Date of Service: Dec 18, 2024 Reason for Consultation: Seizures Requesting Physician: Hospitalist HISTORY OF PRESENT ILLNESS: Ms. Fong is a 44-year-old right-handed lady with a history of anxiety, depression, chronic pancreatitis, spina bifida, hydrocephalus with shunt placement, and seizures, presenting with a recent seizure episode and UTI. The patient has a long-standing history of seizures that began at age 13. Her most recent seizure occurred 4 days ago, during which she fell and hit her back. The patient reports losing consciousness during seizures and states that her roommate had to hold her hand during the episode. She also experienced episodes where she has loss of sensation in her right arm. The patient describes that seizures can occur spontaneously, even when she is just sitting. She denies missing any doses of her anti-seizure medication, Keppra (levetiracetam), which she takes at a dose of 1500 mg twice daily. The patient also takes alprazolam twice daily for anxiety management. She confirms taking her morning dose of alprazolam on the day of the seizure. Ms. Fong's seizure history includes a previous incident 7 years ago that resulted in a broken right arm. Her last shunt revision was at age 9. She recently experienced a urinary tract infection at [facility] [place] [facility] and is currently dg with UTI and started on ceftriaxone. The patient is currently under the care of a psychiatrist, Dr. Fraser, with an upcoming appointment scheduled for the of next month. She has been told multiple times before that this are "emotionally trigger" Seizures. Unknown if by this it represents PNES (psychogenic non epileptic seizu res) Medical History - Anxiety - Depression - Chronic pancreatitis - Spina bifida - Recent urinary tract infection - Hydrocephalus diagnosed as an , requiring shunt placement - Seizure disorder with onset at age 13 - Right arm fracture due to seizure 7 years ago - Fall with back injury 4 days ago Surgical History - Shunt placement from brain to abdomen for hydrocephalus as a baby - Shunt revision at age 9 Medications and Supplements - Levetiracetam (Keppra) 1500 mg by mouth twice a day - Prescribed by Dr. Jorge Negron from [facility] - For seizures - Alprazolam - Taken twice a day - For anxiety Social History - Living Situation: Lives with a roommate REVIEW OF SYSTEMS Neurological: Positive for seizures with loss of consciousness, arm numbness during seizures. Musculoskeletal: Positive for recent fall with back impact. Psychiatric: Positive for anxiety PAST MEDICAL HISTORY: as above PAST SURGICAL HISTORY: as above PAST SOCIAL HISTORY: unknown FAMILY HISTORY: no for seizures Coded Allergies: No Known Drug Allergies (Verified Allergy, Unknown, 07/12/20) PHYSICAL EXAM EYES: Anicteric. Pupils equal and reactive. HENT: No oral thrush seen, moist Oral mucosa NECK: Supple, no JVD or thyromegaly. LUNGS: Good air entry. No rales, no rhonchi. CARDIOVASCULAR: S1, S2 regular. No murmur heard. ABDOMEN: Soft, non tender, bowel sounds present, no organomegaly CENTRAL NERVOUS SYSTEM: Awake, alert, oriented x 3. No focal deficits. SKIN: No rashes, no swelling. LYMPHATICS: No peripheral lymphadenopathy MUSCULOSKELETAL: No joint swelling, erythema or tenderness. EXTREMITIES: No cyanosis or clubbing BACK: No deformity, no pressure ulcer. GENITOURINARY: No dysuria or hematuria Vital Sign (Last 24 Hours) 12/18/24 05:15 Temp 98.6 Pulse 64 Resp 18 B/P (MAP) 106/56 Pulse Ox 95 O2 Delivery Room Air* O2 Flow Rate 0 FiO2 21 LABS: Laboratory: Test 12/18/24 06:27 12/17/24 18:12 12/17/24 09:36 12/17/24 04:04 Range/Units Sodium Level 138 136-145 mmol/L Potassium Level 3.6 3.5-5.1 mmol/L Chloride Level 108 101-111 mmol/L Carbon Dioxide Level 24 21-32 mmol/L Blood Urea Nitrogen 5 L 7-18 mg/dL Creatinine 0.6 0.5-1.0 mg/dL Glomerular Filtration Rate Calc 113 >90 mL/min Random Glucose 88 70-105 mg/dL Total Calcium 8.2 L 8.5-10.1 mg/dL Phosphorus Level 2.5 2.5-4.9 mg/dL Magnesium Level 1.90 1.80-2.40 mg/dL Influenza Type A Antigen Negative For Type A NEGATIVE Influenza Type B Antigen Negative For Type B NEGATIVE SARS-CoV-2 Antigen (Rapid) PRESUMPTIVE NEGATIVE NEGATIVE Lactic Acid Level 0.9 0.8-2.5 mmol/L Total Bilirubin 0.3 0.2-1.0 mg/dL Direct Bilirubin 0.1 0.0-0.3 mg/dL Aspartate Amino Transf (AST/SGOT) 14 10-37 U/L Alanine Aminotransferase (ALT/SGPT) 22 12-78 U/L Alkaline Phosphatase 129 50-136 U/L Total Protein 5.7 L 6.0-8.3 g/dL Albumin 3.0 L 3.5-5.0 g/dL Lipase 11 L 16-77 U/L Urine Color LIGHT-YELLOW YELLOW Urine Appearance CLEAR CLEAR Urine pH 6.5 5.0-8.0 Urine Specific [place] >1.031 1.001-1.031 Urine Protein NEGATIVE NEGATIVE mg/dL Urine Glucose (UA) NEGATIVE NEGATIVE mg/dL Urine Ketones NEGATIVE NEGATIVE mg/dL Urine Occult Blood MODERATE H NEGATIVE Urine Nitrate NEGATIVE NEGATIVE Urine Bilirubin NEGATIVE NEGATIVE mg/dL Urine Urobilinogen 0.2 0.2-1.0 mg/dL Urine Leukocyte Esterase 75 H NEGATIVE [place]/uL Urine RBC 6-10 H 0-1 /HPF Urine WBC 6-10 H 0-1 /HPF Urine Squamous Epithelial Cells MANY 0-2 /HPF Urine Non-Squamous Epithelial Cells 2 0-2 /HPF Urine Bacteria RARE None Seen /HPF Urine Opiates Screen NEGATIVE NEGATIVE Urine Barbiturates Screen NEGATIVE NEGATIVE Urine Phencyclidine Screen NEGATIVE NEGATIVE Urine Amphetamines Screen NEGATIVE NEGATIVE Urine Benzodiazepines Screen POSITIVE H NEGATIVE Urine Cocaine Screen NEGATIVE NEGATIVE Urine Marijuana (THC) Screen NEGATIVE NEGATIVE Test 12/17/24 01:40 Range/Units White Blood Count 5.2 4.8-10.8 K/uL Red Blood Count 3.47 L 4.00-5.50 MIL/uL Hemoglobin 8.6 L 12.0-16.0 g/dL Hematocrit 27.6 L 36-48 % Mean Corpuscular Volume 79.5 79-99 fL Mean Corpuscular Hemoglobin 24.8 L 27.0-33.0 pg Mean Corpuscular Hemoglobin Concent 31.2 L 32.0-36.0 g/dL Red Cell Distribution Width 15.1 11.0-15.5 % Platelet Count 304 130-400 K/uL Mean Platelet Volume 10.2 7.5-10.5 fL Immature Granulocyte % (Auto) 0.2 0-1 % Neutrophils (%) (Auto) 57.9 40.0-77.0 % Lymphocytes (%) (Auto) 31.5 21.0-51.0 % Monocytes (%) (Auto) 8.1 3.0-13.0 % Eosinophils (%) (Auto) 2.1 0.0-8.0 % Basophils (%) (Auto) 0.2 0.0-5.0 % Neutrophils # (Auto) 3.0 1.8-7.7 K/uL Lymphocytes # (Auto) 1.6 1.0-4.8 K/uL Monocytes # (Auto) 0.4 0.1-1.0 K/uL Eosinophils # (Auto) 0.11 0.00-0.70 K/uL Basophils # (Auto) 0.01 0.00-0.20 K/uL Absolute Immature Granulocyte (auto 0.01 0-1 K/uL Nucleated Red Blood Cells 0.0 0.0-0.19 % Red Blood Cell Morphology See comments Whole Blood Ketones Quantitative < 0.1 0.0-0.6 mmol/L Ammonia < 10 L 11-32 umol/L Total Creatine Kinase 53 # 21-232 U/L Human Chorionic Gonadotropin, Quant 0 0-5 mIU/mL Serum Alcohol 4 0-10 mg/dL DIAGNOSTICS / RADIOLOGY: CTH negative for strokes. No hydrocephalus. ASSESSMENT / PLAN: Ms. Fong is a 44-year-old right-handed lady with a history of anxiety, depression, chronic pancreatitis, spina bifida, hydrocephalus with shunt placement, and seizures since age 13, presenting with a recent seizure episode. Seizure Disorder Assessment: Patient has a long-standing history of seizures since age 13, with the most recent episode occurring 4 days ago. The seizures are characterized by loss of consciousness and have resulted in injuries, including a broken right arm 7 years ago. Currently on levetiracetam 1500 mg twice daily. The etiology of the seizures is unclear, with potential contributing factors including anxiety, alprazolam dependency, or underlying neurological issues related to her hydrocephalus and shunt placement. Differential diagnoses include epilepsy and/or psychogenic non-epileptic seizures. She will benefit from a continues cEEG video monitoring that can be done as outpatient at home. Plan: - Continue levetiracetam 1500 mg PO twice daily - Refer to epileptologist Dr. Carlton Negron in [facility] for comprehensive evaluation and management - Consider continuous EEG monitoring to evaluate for psychogenic non-epileptic seizures - Follow up with neurologist for ongoing management Anxiety Disorder Assessment: Patient has a history of anxiety and is currently taking alprazolam twice daily. There is concern that uncontrolled anxiety or potential alprazolam dependency may be contributing to the seizure episodes. Plan: - Continue current alprazolam regimen - Follow up with psychiatrist Dr. Fraser on the 3rd of next month to discuss anxiety management Hydrocephalus with Ventriculoperitoneal Shunt Assessment: Patient has a history of hydrocephalus with shunt placement from brain to abdomen as an . The last shunt revision was at age 9. It is unclear if the current shunt function is contributing to the patient's neurological symptoms. Plan: - Shunt evaluation to be included in the comprehensive neurological assessment by the epileptologist Thank you for your consultation. I will sign off. PHILOMENA GUERRERO MD Dec 18, 2024 07:23
--- NOTE | 2024-12-18 08:20 | NUR ---
Report received from ARI Garg. Pt. taken to for MRCP procedure. No acute distress noted.
--- NOTE | 2024-12-18 08:53 | HMCIMG ---
EXAM: CR Chest, 1 views. CLINICAL HISTORY: Cough. COMPARISON: None provided. FINDINGS: CVP line is seen with distal tip in right atrium. Possible right sided a ventriculoperitoneal drainage tube is noted. The lungs show no infiltrate or other acute findings. No pleural effusion or pneumothorax. The cardiomediastinal silhouette is within normal limits. No acute osseous abnormality. IMPRESSION: CVP line is seen with distal tip in right atrium. Possible right sided a ventriculoperitoneal drainage tube is noted. No pulmonary infiltrates or pleural effusions. /[place]
[2024-12-18 08:58] LABS: % IRON SATURATION 4.8 % (22-44); IRON, SERUM 16.0 mcg/dL (50-170)
[2024-12-18 11:37] VITALS: O2SAT 100
[2024-12-18 12:27] VITALS: BP 140/85; PULSE 71; RESP 20; TEMP 98
[2024-12-18] MEDS: HYDROcodone/APAP 5/325 1 TAB TABLET PO PRN (14:13)
--- NOTE | 2024-12-18 15:50 | PN ---
[facility] PROGRESS NOTE Date of Service: Dec 18, 2024 Time of Service: 15:34 SUBJECTIVE: She is a 44-year-old female with past medical history of anxiety, neurogenic bladder, spina bifida, chronic pancreatitis, gastroparesis, seizures, depression, BP shunt, recent UTI positive for Klebsiella pneumoniae, recent fluid collection in the abdomen positive for Enterococcus faecalis, recurrent utis and surgical history of J-tube placement, small bowel resection, vp analytics shunt placement, colostomy placement and closure, cholecystectomy, appendectomy. She also takes linzes and vonnie for constipation. She has a bladder reconstructive surgery and has a sphincter in her bladder which is helping her to pee. Patient denies any alcohol use, patient denies well. Patient denies illicit drug use. patient lives with her roommate, Zachary. She came to the ER with chief complaint of seizures. She also has nausea vomiting and abdominal pain. Two months back she was [place] [facility] [place] she was treated with tobramycin, gentamicin and vancomycin. On discharge a PICC line is placed. In the emergency department hemoglobin 8.6, hematocrit 27.6, potassium 3.0 CT of abdomen and pelvis has been ordered. Keppra is started for seizures. The patient is admitted for further management. 12/17/2024: Patient is seen and evaluated in the ER. She is having abdominal pain and headache. Her abdomen is tender on palpation. She has headache on right temporal region. She describes the headache as a throbbing and its associated with nausea and vomiting. She is having break through seizures. Her vitals are in the normal range. Her labs are normal except for BUN is 4, lipase is 11, Hb is 8.6, RBC is 3.47. Her urinalysis show leukocyte esterase is 75, WBC is 6 to 10, RBC is 6 to 10. We sent urine for culture and gave her ceftriaxone. She is on keppra drip which is changed to oral. Her head CT is normal. We ordered a GI consult and neurology consult. She requesting morphine for pain and her pain is not controlled with hydromorphone. So we added morphine and lidocaine. She also has a PICC line placed. When we asked about the PICC line she said that she is having recurrent UIT every 2 weeks and the organisms causing the infection are resistant to all oral antibiotics so they are giving IV antibiotics. They left the PICC line in place as they couldn't find veins to place catheter and she needs IV antibiotics frequently. She gets tobramycin, vancomycin and gentamicin for UTI. She said Dr. Blackmon recommended penitentiary antibiotics. Also she goes to [facility] for antibiotics because [facility] doesn't accept her insurance also there they clean her PICC line. We requested the records from [facility] 12/18/2024: Patient is seen and evaluated in the ER. She is having abdominal pain, and anxiety. Her vitals are in the normal range. Her labs are normal except for Hb is 8.3, HCT is 27.6, WBC is 3.6, BUN is 5, iron is 16, %saturation is 4.8, ferritin is 14, procal is <0.05. Her serology is negative for influenza type A Ag, influenza type B Ag, SARS COV 2 Ag. She is on hydromorphone PRN, lidocaine patch and [place] PRN for pain. We ordered alprazolam for her anxiety. Gastroenterology saw her and they recommended MRCP with cholangiopancreatography. She underwent the procedure but we are waiting for the report. Neurology saw her and they think her seizures could be due to [employer]DC[employer] shunt and they recommended referral to epileptologist Dr. Carlton Negron in [facility] for comprehensive evaluation and management, consider continuous EEG monitoring to evaluate for psychogenic non-epileptic seizures. Her urine culture showed gram negative rods and placed a ID consult. REVIEW OF SYSTEMS CONSTITUTIONAL: Denies fevers, chills, or night sweats. No unintentional weight loss reported. NEUROLOGICAL: Denies headache, amaurosis fugax, motor weakness, sensory deficit, vertigo/spinning sensation, gait abnormalities, or tremors. ENT: No hearing loss, otalgia, otorrhea, rhinitis, rhinorrhea, hoarseness, or sore throat. CARDIOVASCULAR: Denies any exertional angina, dyspnea on exertion, orthopnea, paroxysmal nocturnal dyspnea, palpitations, life-threatening arrhythmias, claudication. PULMONARY: Denies any shortness of breath, cough, phlegm/sputum, hemoptysis, pleuritic chest pain. SLEEP: Denies morning headaches, daytime somnolence or napping. Denies difficulty falling asleep, staying asleep, waking from sleep. Denies knowledge of snoring. GASTROINTESTINAL: Denies any type of dysphagia to either liquids or solids. Denies nausea, vomiting, pyrosis, early satiety, abdominal pain, diarrhea, constipation, or changes in stool consistency or caliber. Denies coffee-ground emesis, hematemesis, hematochezia, or melanotic stools. GENITOURINARY: Denies frequency, urgency, nocturia, hematuria or incontinence (Storage/Irritative symptoms.) Low urinary stream, straining to void, urinary intermittency or hesitancy, splitting of the voiding stream, terminal dribbling. ENDOCRINOLOGIC: Denies polyuria, polydipsia, polyphagia or heat/cold intolerances. HEMATOLOGIC: Denies thrombophilia/previous clots, or coagulopathy/bleeding disorders. ONCOLOGIC: Denies personal history of malignancy. DERMATOLOGIC: Denies rashes or pruritus. PSYCHIATRIC: Denies any suicidal or homicidal ideation. Denies hallucinations. PHYSICAL EXAM GENERAL APPEARANCE: The patient is awake, alert, and oriented, in no acute cardiopulmonary distress. NEUROLOGICAL: Cranial nerves II-XII grossly intact. Motor is 5/5 in bilateral upper and lower extremities proximal to distal. No sensory deficits. HEENT: Face is symmetric. Pupils are equal and reactive. Extraocular movements are intact. NECK: Supple. No JVD. No thyromegaly. No submental, submandibular, pre- /postauricular, occipital or supraclavicular lymphadenopathy. CHEST: Normal chest expansion. No Telemetry. LUNGS: Absence of any rales, rhonchi or any wheezing. CARDIOVASCULAR: Regular. S1 and S2 normal. No appreciable rubs, murmurs or gallops. ABDOMEN: Soft, nontender, and nondistended. There is no rebound, voluntary guarding, or rigidity. : Deferred. No Carnes. EXTREMITIES: Non-edematous and not cyanotic. No clubbing. Good capillary refill. SKIN: No skin breakdown. Vital Signs (last 8hr) Date Time Temp Pulse Resp B/P (MAP) Pulse Ox O2 Delivery O2 Flow Rate FiO2 12/18/24 12:27 98.1 71 20 140/85 Room Air 0.0 12/18/24 11:37 100 Room Air* 0 21 LABS: Laboratory: Test 12/18/24 13:07 12/18/24 06:27 12/17/24 18:12/17/24 09:36 Range/Units Procalcitonin < 0.05 L 0.05-0.5 ng/mL White Blood Count 3.6 L 4.8-10.8 K/uL Red Blood Count 3.35 L 4.00-5.50 MIL/uL Hemoglobin 8.3 L 12.0-16.0 g/dL Hematocrit 27.5 L 36-48 % Mean Corpuscular Volume 82.1 79-99 fL Mean Corpuscular Hemoglobin 24.8 L 27.0-33.0 pg Mean Corpuscular Hemoglobin Concent 30.2 L 32.0-36.0 g/dL Red Cell Distribution Width 15.0 11.0-15.5 % Platelet Count 215 # 130-400 K/uL Mean Platelet Volume 10.9 H 7.5-10.5 fL Immature Granulocyte % (Auto) 0.3 0-1 % Neutrophils (%) (Auto) 50.4 40.0-77.0 % Lymphocytes (%) (Auto) 38.3 21.0-51.0 % Monocytes (%) (Auto) 6.5 3.0-13.0 % Eosinophils (%) (Auto) 3.9 0.0-8.0 % Basophils (%) (Auto) 0.6 0.0-5.0 % Neutrophils # (Auto) 1.8 1.8-7.7 K/uL Lymphocytes # (Auto) 1.4 1.0-4.8 K/uL Monocytes # (Auto) 0.2 0.1-1.0 K/uL Eosinophils # (Auto) 0.14 0.00-0.70 K/uL Basophils # (Auto) 0.02 0.00-0.20 K/uL Absolute Immature Granulocyte (auto 0.01 0-1 K/uL Nucleated Red Blood Cells 0.0 0.0-0.19 % Reticulocyte Count (auto) 1.01766 0.42-2.23 % Immature Reticulocyte Fraction 14.10 H 0.18-0.48 % Sodium Level 138 136-145 mmol/L Potassium Level 3.6 3.5-5.1 mmol/L Chloride Level 108 101-111 mmol/L Carbon Dioxide Level 24 21-32 mmol/L Blood Urea Nitrogen 5 L 7-18 mg/dL Creatinine 0.6 0.5-1.0 mg/dL Glomerular Filtration Rate Calc 113 >90 mL/min Random Glucose 88 70-105 mg/dL Total Calcium 8.2 L 8.5-10.1 mg/dL Phosphorus Level 2.5 2.5-4.9 mg/dL Magnesium Level 1.90 1.80-2.40 mg/dL Iron Level 16 L 50-170 mcg/dL Total Iron Binding Capacity 329 250-450 mcg/dL Percent Iron Saturation 4.8 L 22-44 % Ferritin 14 L 15-150 ng/mL Vitamin B12 Level 323 193-986 pg/mL Influenza Type A Antigen Negative For Type A NEGATIVE Influenza Type B Antigen Negative For Type B NEGATIVE SARS-CoV-2 Antigen (Rapid) PRESUMPTIVE NEGATIVE NEGATIVE Lactic Acid Level 0.9 0.8-2.5 mmol/L Total Bilirubin 0.3 0.2-1.0 mg/dL Direct Bilirubin 0.1 0.0-0.3 mg/dL Aspartate Amino Transf (AST/SGOT) 14 10-37 U/L Alanine Aminotransferase (ALT/SGPT) 22 12-78 U/L Alkaline Phosphatase 129 50-136 U/L Total Protein 5.7 L 6.0-8.3 g/dL Albumin 3.0 L 3.5-5.0 g/dL Lipase 11 L 16-77 U/L Test 12/17/24 04:04 12/17/24 01:40 Range/Units Urine Color LIGHT-YELLOW YELLOW Urine Appearance CLEAR CLEAR Urine pH 6.5 5.0-8.0 Urine Specific [place] >1.031 1.001-1.031 Urine Protein NEGATIVE NEGATIVE mg/dL Urine Glucose (UA) NEGATIVE NEGATIVE mg/dL Urine Ketones NEGATIVE NEGATIVE mg/dL Urine Occult Blood MODERATE H NEGATIVE Urine Nitrate NEGATIVE NEGATIVE Urine Bilirubin NEGATIVE NEGATIVE mg/dL Urine Urobilinogen 0.2 0.2-1.0 mg/dL Urine Leukocyte Esterase 75 H NEGATIVE [place]/uL Urine RBC 6-10 H 0-1 /HPF Urine WBC 6-10 H 0-1 /HPF Urine Squamous Epithelial Cells MANY 0-2 /HPF Urine Non-Squamous Epithelial Cells 2 0-2 /HPF Urine Bacteria RARE None Seen /HPF Urine Opiates Screen NEGATIVE NEGATIVE Urine Barbiturates Screen NEGATIVE NEGATIVE Urine Phencyclidine Screen NEGATIVE NEGATIVE Urine Amphetamines Screen NEGATIVE NEGATIVE Urine Benzodiazepines Screen POSITIVE H NEGATIVE Urine Cocaine Screen NEGATIVE NEGATIVE Urine Marijuana (THC) Screen NEGATIVE NEGATIVE Red Blood Cell Morphology See comments Whole Blood Ketones Quantitative < 0.1 0.0-0.6 mmol/L Ammonia < 10 L 11-32 umol/L Total Creatine Kinase 53 # 21-232 U/L Human Chorionic Gonadotropin, Quant 0 0-5 mIU/mL Serum Alcohol 4 0-10 mg/dL Current Medications Medications (Trade) Dose Ordered Sig/Sandi Route PRN Reason Start Time Stop Time Status Last Admin Dose Admin Acetaminophen (TYLenol 325MG TAB) 650 mg Q6H PRN PO TEMPERATURE GREATER THAN 101.5 12/17/24 03:30 01/16/25 03:29 Acetaminophen/ Hydrocodone Bitart (NORco 5/325MG) 1 tab Q4H PRN PO MODERATE PAIN (4-6) 12/17/24 16:00 12/22/24 15:59 12/18/24 14:13 1 TAB Alprazolam (XANax 0.25MG) 0.25 mg BID PO 12/18/24 09:00 01/17/25 08:59 12/18/24 09:10 0.25 MG Ceftriaxone Sodium (ROCEphine 1G INJ) 1 gm Q24H IVPB 12/17/24 16:00 12/17/24 15:53 DC Famotidine (Pepcid 20mg Tab) 20 mg DAILY PO 12/17/24 09:00 01/16/25 08:59 12/18/24 07:51 20 MG Hydralazine HCl (APRESOLine 20MG INJ) 10 mg Q6H PRN IV For:SBP above 160;DBP above 90 12/17/24 03:30 01/16/25 03:29 Hydromorphone HCl (DiLAUDid 0.5MG INJ) 0.25 mg Q4H PRN IVP SEVERE PAIN (7-10) 12/17/24 04:30 12/17/24 15:41 DC 12/17/24 15:27 0.25 MG Hydromorphone HCl (DiLAUDid 0.5MG INJ) 0.25 mg Q4H PRN IVP SEVERE PAIN (7-10) 12/17/24 21:30 12/22/24 21:29 12/18/24 10:49 0.25 MG Lactulose (Constulose 20gm/ 30ml Udcup) 20 gm BID PRN PO CONSTIPATION 12/17/24 03:30 01/16/25 03:29 Levetiracetam (kepPRA 500 MG TABLET) 1,000 mg BID PO 12/17/24 09:00 01/16/25 08:59 12/18/24 07:51 1,000 MG Lidocaine (Lidocaine Patch 4%) 1 each Q24H TP 12/17/24 18:00 01/16/25 17:59 12/17/24 18:57 1 EACH Morphine Sulfate (morPHINE 4MG SYG) 2 mg Q4H PRN IVP SEVERE PAIN (7-10) 12/17/24 03:30 12/17/24 04:05 DC Ondansetron HCl (zoFRAN 4MG INJ) 4 mg Q6H PRN IV NAUSEA/VOMITING 12/17/24 03:30 01/16/25 03:29 12/18/24 06:50 4 MG Phenol (Sore Throat [place]) 1 SPRAY Q4H PRN PO SORE THROAT 12/17/24 14:30 01/16/25 14:29 Potassium Chloride 40 meq/ Sodium Chloride 1,000 ml @ 200 mls/hr Q5H STAT IV 12/17/24 02:28 12/17/24 07:27 DC 12/17/24 04:01 200 MLS/HR Potassium Chloride 100 ml @ 100 mls/hr AD PRN IV POTASSIUM PROTOCOL 12/17/24 03:30 01/16/25 03:29 DIAGNOSTICS / RADIOLOGY: [ ] ASSESSMENT: Seizures, POA Urinary tract infection Chronic UTIs with a central line in place to the right chest, patient states last antibiotics for two weeks ago, patient states her infectious disease doctor, Dr. Ferrera told her she did not need anymore outpatient antibiotics. Abdominal pain Hypokalemia, POA Nausea, vomiting, POA Chronic anemia, POA Iron deficiency anemia Anxiety Neurogenic bladder Spina bifida Depression Chronic UTIs with a central line in place to the right chest, patient states last antibiotics for two weeks ago, patient states her infectious disease doctor, Dr. Ferrera told her she did not need anymore outpatient antibiotics. PLAN: Seizures, POA She had seizures at the time of admission which stopped with levetiracetam IV. She is currently not having any seizures. Levetiracetam IV was changed to oral. Continue it. Her CT head is normal. Neurology saw her and they think her seizures could be due to BIRDCAGE [employer]BL[employer] shunt and they recommended referral to epileptologist Dr. Carlton Negron in [facility] for comprehensive evaluation and management, consider continuous EEG monitoring to evaluate for psychogenic non-epileptic seizures. Her urine culture showed gram negative rods and placed a ID consult. Urinary tract infection Chronic UTIs with a central line in place to the right chest, patient states last antibiotics for two weeks ago, patient states her infectious disease doctor, Dr. Ferrera told her she did not need anymore outpatient antibiotics. Her urinalysis showed evidence of UIT. We gave a dose of ceftriaxone. Sent urine for culture and it showed gram negative rods. Identification and sens itivity results are pending. We placed a ID consult. She also has a PICC line placed. When we asked about the PICC line she said that she is having recurrent UIT every 2 weeks and the organisms causing the infection are resistant to all oral antibiotics so they are giving IV antibiotics. They left the PICC line in place as they couldn't find veins to place catheter and she needs IV antibiotics frequently. She gets tobramycin, vancomycin and gentamicin for UTI. She said Dr. Blackmon recommended [facility]itentiary antibiotics. Also she goes to [facility] for antibiotics because [facility] her insurance also there they clean her PICC line. We requested the records [place] [facility] Abdominal pain She complained of abdominal pain and her abdomen is tender to touch. She is taking hydromorphone but her pain is not controlled with it and she reque sts morphine. So we added lidocaine and morphine. She received one dose of morphine. She is currently on hydromorphone PRN, [place] PRN, lidocaine for pain. Gastroenterology saw her and they recommended MRCP with cholangiopancreatography. She underwent the procedure but we are waiting for the report. Hypokalemia, POA Today her blood work showed potassium is 3.6. Will repeat her labs tomorrow. Nausea, vomiting, POA She complained of nausea and vomiting. Continue ondansetron. Gastroenterology saw her and they recommended MRCP with cholangiopancreatography. She underwent the procedure but we are waiting for the report. Chronic anemia, POA Iron deficiency anemia Her lab work show that Hb is 8.3, HCT is 27.5, MCH is 24.8, MCHC is 30.2. Ordered iron panel and it showed iron 16, TIBC 329, ferritin 14, %saturation is 4.8. Gave a dose of iron. Will repeat her labs tomorrow. Anxiety Ordered alprazolam for her anxiety. Neurogenic bladder Spina bifida Depression She is on GI soft/bland diet. GI prophylaxis with famotidine. DVT prophylaxis with SCD. ATTESTATION BY PHYSICIAN I have seen and examined the patient. I reviewed the documentation, medical decision making, and treatment plan as noted by the resident provider above. I agree with the findings and plan of care. Derrell Miller MD, AKSHAY MD Dec 18, 2024 15:50
--- NOTE | 2024-12-18 15:55 | NUR ---
Pt. reports self catheterization.
[2024-12-18 16:29] VITALS: BP 134/73; PULSE 72; RESP 15; TEMP 98.4
--- NOTE | 2024-12-18 17:00 | CONS ---
GASTROENTEROLOGY CONSULTATION NOTE Date of Consultation: Dec 18, 2024 Time of Consultation: 16:56 History of Present Illness: [44 yo female patient with past medical history for seizures presented to emergency room with complaints of seizures. CT of abdomen and pelvis findings: A questionable encircling object around the urinary bladder outlet, which is connected with the tubular system that terminates around the right side of the labia majora.Status postcholecystectomy. Dilated CBD and intrahepatic ducts; the CBD measures up to 1.2 cm in diameter. Small ascites is evident, more pronounced at the left lumbar quadrant and pelvic regions. Questionable Tarlov cysts around the lumbosacral region. WBC 3.6, hgb 8.3, platelets 215. CMP significant for BUN 5, calcium 5.2. Total bilirubin, AST,ALT, alk phos are normal. MRCP done and pending results. On exam patient is resting in SF in stretcher. Respirations are unlabored. BBS are clear. Abdomen is soft but tender to epigastric region. Patient reports having epigastric pain with nausea and vomiting for the past 3 days onset after she drank pink lemonade. POC discussed and informed of pending MRCP results. Possible need for EGD or ERCP. Patient V/U.] Review of Systems: CONSTITUTIONAL: No malaise or change in sensation of wellbeing. ENMT: No rhinorrhea, otorrhea, sinus pain, ear ache. CARDIOVASCULAR: No angina, palpitations, orthopnea or paroxysmal dyspnea. RESPIRATORY: No SOB. GASTROINTESTINAL: No abdominal pain, nausea, vomiting, diarrhea, hematemesis, melena or change in the patient's habitual bowel movements consistency/number. GENITOURINARY: No dysuria, hematuria or change in bladder continence. MUSCULOSKELETAL: No new muscle pain or decrease in muscular strength. No new joint swelling, redness or tenderness. SKIN: No new rash. Past Medical History: Cancer MOTHER, Onset:Unknown (cancer in uterus) Chronic obstructive pulmonary disease BROTHER FH: depression BROTHER, Onset:5 SISTER, Onset:19 Family history: Asthma MOTHER, Onset: Family history: Diabetes mellitus MOTHER, Onset:Unknown FATHER BROTHER SISTER Family history: Hypertension MOTHER, Onset:Unknown FATHER, Onset:Unknown Stroke MOTHER FATHER, Onset:60 years & older Coded Allergies: No Known Drug Allergies (Verified Allergy, Unknown, 07/12/20) Physical Exam: GEN: Awake, alert, oriented in person, time and place, and in no acute distress. HEENT: No rhinorrhea. Oral pharyngeal mucosa is, moist and within normal limits. CHEST:Lung auscultation revealed normal breath sounds bilaterally. CARDIAC: PMI is within normal limits. Heart sounds are regular. ABD: Soft, tender to epigastric region, and not distended. No peritoneal signs on palpation. Normal bowel sounds. EXT: No cyanosis or clubbing. No edema. SKIN: Intact. No rashes. JOINTS: No evidence of synovitis or acute arthritis. NEURO: Alert and oriented to name, place and person. No focal motor deficits. Normal speech. Strength is normal. Vital Sign (Last 24 Hours) 12/18/24 12/18/24 11:37 16:29 Temp 98.4 Pulse 72 Resp 15 B/P (MAP) 134/73 Pulse Ox 100 O2 Delivery Room Air O2 Flow Rate 0.0 FiO2 21 Laboratory: [ ] Laboratory: Test 12/18/24 13:07 12/18/24 06:27 12/17/24 18:12 12/17/24 09:36 Range/Units Procalcitonin < 0.05 L 0.05-0.5 ng/mL White Blood Count 3.6 L 4.8-10.8 K/uL Red Blood Count 3.35 L 4.00-5.50 MIL/uL Hemoglobin 8.3 L 12.0-16.0 g/dL Hematocrit 27.5 L 36-48 % Mean Corpuscular Volume 82.1 79-99 fL Mean Corpuscular Hemoglobin 24.8 L 27.0-33.0 pg Mean Corpuscular Hemoglobin Concent 30.2 L 32.0-36.0 g/dL Red Cell Distribution Width 15.0 11.0-15.5 % Platelet Count 215 # 130-400 K/uL Mean Platelet Volume 10.9 H 7.5-10.5 fL Immature Granulocyte % (Auto) 0.3 0-1 % Neutrophils (%) (Auto) 50.4 40.0-77.0 % Lymphocytes (%) (Auto) 38.3 21.0-51.0 % Monocytes (%) (Auto) 6.5 3.0-13.0 % Eosinophils (%) (Auto) 3.9 0.0-8.0 % Basophils (%) (Auto) 0.6 0.0-5.0 % Neutrophils # (Auto) 1.8 1.8-7.7 K/uL Lymphocytes # (Auto) 1.4 1.0-4.8 K/uL Monocytes # (Auto) 0.2 0.1-1.0 K/uL Eosinophils # (Auto) 0.14 0.00-0.70 K/uL Basophils # (Auto) 0.02 0.00-0.20 K/uL Absolute Immature Granulocyte (auto 0.01 0-1 K/uL Nucleated Red Blood Cells 0.0 0.0-0.19 % Reticulocyte Count (auto) 1.86966 0.42-2.23 % Immature Reticulocyte Fraction 14.10 H 0.18-0.48 % Sodium Level 138 136-145 mmol/L Potassium Level 3.6 3.5-5.1 mmol/L Chloride Level 108 101-111 mmol/L Carbon Dioxide Level 24 21-32 mmol/L Blood Urea Nitrogen 5 L 7-18 mg/dL Creatinine 0.6 0.5-1.0 mg/dL Glomerular Filtration Rate Calc 113 >90 mL/min Random Glucose 88 70-105 mg/dL Total Calcium 8.2 L 8.5-10.1 mg/dL Phosphorus Level 2.5 2.5-4.9 mg/dL Magnesium Level 1.90 1.80-2.40 mg/dL Iron Level 16 L 50-170 mcg/dL Total Iron Binding Capacity 329 250-450 mcg/dL Percent Iron Saturation 4.8 L 22-44 % Ferritin 14 L 15-150 ng/mL Vitamin B12 Level 323 193-986 pg/mL Influenza Type A Antigen Negative For Type A NEGATIVE Influenza Type B Antigen Negative For Type B NEGATIVE SARS-CoV-2 Antigen (Rapid) PRESUMPTIVE NEGATIVE NEGATIVE Lactic Acid Level 0.9 0.8-2.5 mmol/L Total Bilirubin 0.3 0.2-1.0 mg/dL Direct Bilirubin 0.1 0.0-0.3 mg/dL Aspartate Amino Transf (AST/SGOT) 14 10-37 U/L Alanine Aminotransferase (ALT/SGPT) 22 12-78 U/L Alkaline Phosphatase 129 50-136 U/L Total Protein 5.7 L 6.0-8.3 g/dL Albumin 3.0 L 3.5-5.0 g/dL Lipase 11 L 16-77 U/L Test 12/17/24 04:04 12/17/24 01:40 Range/Units Urine Color LIGHT-YELLOW YELLOW Urine Appearance CLEAR CLEAR Urine pH 6.5 5.0-8.0 Urine Specific [place] >1.031 1.001-1.031 Urine Protein NEGATIVE NEGATIVE mg/dL Urine Glucose (UA) NEGATIVE NEGATIVE mg/dL Urine Ketones NEGATIVE NEGATIVE mg/dL Urine Occult Blood MODERATE H NEGATIVE Urine Nitrate NEGATIVE NEGATIVE Urine Bilirubin NEGATIVE NEGATIVE mg/dL Urine Urobilinogen 0.2 0.2-1.0 mg/dL Urine Leukocyte Esterase 75 H NEGATIVE [place]/uL Urine RBC 6-10 H 0-1 /HPF Urine WBC 6-10 H 0-1 /HPF Urine Squamous Epithelial Cells MANY 0-2 /HPF Urine Non-Squamous Epithelial Cells 2 0-2 /HPF Urine Bacteria RARE None Seen /HPF Urine Opiates Screen NEGATIVE NEGATIVE Urine Barbiturates Screen NEGATIVE NEGATIVE Urine Phencyclidine Screen NEGATIVE NEGATIVE Urine Amphetamines Screen NEGATIVE NEGATIVE Urine Benzodiazepines Screen POSITIVE H NEGATIVE Urine Cocaine Screen NEGATIVE NEGATIVE Urine Marijuana (THC) Screen NEGATIVE NEGATIVE Red Blood Cell Morphology See comments Whole Blood Ketones Quantitative < 0.1 0.0-0.6 mmol/L Ammonia < 10 L 11-32 umol/L Total Creatine Kinase 53 # 21-232 U/L Human Chorionic Gonadotropin, Quant 0 0-5 mIU/mL Serum Alcohol 4 0-10 mg/dL Current Medications Medications (Trade) Dose Ordered Sig/Sandi Route PRN Reason Start Time Stop Time Status Last Admin Dose Admin Acetaminophen (TYLenol 325MG TAB) 650 mg Q6H PRN PO TEMPERATURE GREATER THAN 101.5 12/17/24 03:30 01/16/25 03:29 Acetaminophen/ Hydrocodone Bitart (NORco 5/325MG) 1 tab Q4H PRN PO MODERATE PAIN (4-6) 12/17/24 16:00 12/22/24 15:59 12/18/24 14:13 1 TAB Alprazolam (XANax 0.25MG) 0.25 mg BID PO 12/18/24 09:00 01/17/25 08:59 12/18/24 09:10 0.25 MG Ceftriaxone Sodium (ROCEphine 1G INJ) 1 gm Q24H IVPB 12/17/24 16:00 12/17/24 15:53 DC Famotidine (Pepcid 20mg Tab) 20 mg DAILY PO 12/17/24 09:00 01/16/25 08:59 12/18/24 07:51 20 MG Hydralazine HCl (APRESOLine 20MG INJ) 10 mg Q6H PRN IV For:SBP above 160;DBP above 90 12/17/24 03:30 01/16/25 03:29 Hydromorphone HCl (DiLAUDid 0.5MG INJ) 0.25 mg Q4H PRN IVP SEVERE PAIN (7-10) 12/17/24 04:30 12/17/24 15:41 DC 12/17/24 15:27 0.25 MG Hydromorphone HCl (DiLAUDid 0.5MG INJ) 0.25 mg Q4H PRN IVP SEVERE PAIN (7-10) 12/17/24 21:30 12/22/24 21:29 12/18/24 15:44 0.25 MG Lactulose (Constulose 20gm/ 30ml Udcup) 20 gm BID PRN PO CONSTIPATION 12/17/24 03:30 01/16/25 03:29 Levetiracetam (kepPRA 500 MG TABLET) 1,000 mg BID PO 12/17/24 09:00 01/16/25 08:59 12/18/24 07:51 1,000 MG Lidocaine (Lidocaine Patch 4%) 1 each Q24H TP 12/17/24 18:00 01/16/25 17:59 12/17/24 18:57 1 EACH Morphine Sulfate (morPHINE 4MG SYG) 2 mg Q4H PRN IVP SEVERE PAIN (7-10) 12/17/24 03:30 12/17/24 04:05 DC Ondansetron HCl (zoFRAN 4MG INJ) 4 mg Q6H PRN IV NAUSEA/VOMITING 12/17/24 03:30 01/16/25 03:29 12/18/24 06:50 4 MG Phenol (Sore Throat [place]) 1 SPRAY Q4H PRN PO SORE THROAT 12/17/24 14:30 01/16/25 14:29 Potassium Chloride 40 meq/ Sodium Chloride 1,000 ml @ 200 mls/hr Q5H STAT IV 12/17/24 02:28 12/17/24 07:27 DC 12/17/24 04:01 200 MLS/HR Potassium Chloride 100 ml @ 100 mls/hr AD PRN IV POTASSIUM PROTOCOL 12/17/24 03:30 01/16/25 03:29 Diagnostics / Radiology: [COPY/PASTE HERE IF NO REPORTS PLEASE DELETE SECTION] Assessment: Epigastric pain Nausea and Vomiting [Common bile duct dilation Intrahepatic duct dilation Seizure ] Plan: Case discussed with Dr. Stoddard No Gi endoscopic intervention at this time. Will awaite MRCP results Gi prophylaxis with pantoprazole 40mg IV Bid Please call with questions, concerns,and change in clinical status Thank you for this consult. ] MANN DENNIS NP Dec 18, 2024 17:00
--- NOTE | 2024-12-18 20:46 | NUR ---
report given to nurse kennedy
[2024-12-18 21:15] VITALS: BP 127/76; PULSE 75; RESP 18; TEMP 98.1
--- NOTE | 2024-12-18 22:00 | NUR ---
CENTRAL LINE Patient admitted with central line to right upper chest. Chest x-ray results reported to RACHEAL ALEJANDRA. Pending order for ok to use central line.
[2024-12-19] VITALS: BP 107/62; PULSE 66; RESP 18; TEMP 98.1
[2024-12-19 04:00] VITALS: BP 99/55; PULSE 69; RESP 18; TEMP 98
[2024-12-19 05:14] LABS: NUCLEATED RED BLOOD CELLS 0.0 % (0.0-0.19); PLATELET COUNT (AUTO) 263.0 K/uL (130-400); RED BLOOD CELL COUNT(AUTO) 3.23 MIL/uL (4.00-5.50); RED CELL DISTRIBUTION WIDTH 14.9 % (11.0-15.5); WHITE BLOOD COUNT (AUTO) 4.8 K/uL (4.8-10.8)
[2024-12-19 05:30] LABS: CREATININE 0.6 mg/dL (0.5-1.0); GLOMERULAR FILTR. RATE CALC 113.0 mL/min (>90); GLUCOSE,RANDOM 92.0 mg/dL (70-105); SODIUM SERUM 139.0 mmol/L (136-145); UREA NITROGEN, BLOOD 4.0 mg/dL (7-18)
[2024-12-19] MEDS ORDERED: COMPOUND IV REFRIGERATED 1 EACH IVSOLN MISC PRN (07:30)
[2024-12-19] MEDS ORDERED: COMPOUND IV MISC 1 EACH IVSOLN MISC PRN (07:30)
[2024-12-19 08:00] VITALS: BP 114/60; PULSE 64; RESP 17; TEMP 97.6
[2024-12-19 08:12] VITALS: O2SAT 98
[2024-12-19] MEDS: CEFTAZIDIME PENTAHYDRATE IVPB SCH (08:12)
[2024-12-19] MEDS: [UNRECOGNIZED DRUG - OTHER] IVPB SCH (08:12)
--- NOTE | 2024-12-19 08:54 | HMCIMG ---
EXAMINATION: MRCP WITHOUT CONTRAST CLINICAL HISTORY: Dilated CBD TECHIQUE : Multiplanar, multisequence MR images of the abdomen were obtained. MRCP images were created on an independent workstation, and made available in electronic format. COMPARISON: Prior CT abdomen and pelvis on 12/17/2024. FINDINGS: The included chest reveals minimal left pleural effusion. Stable fluid collection measuring 6.0 x 5.6 x 5.6 cm along the left iliac fossa superiorly extending and indenting on the lower pole of the left kidney. Minimal free fluid along perisplenic region. The liver, spleen, right kidney, and bilateral adrenal glands appear grossly unremarkable. The visualized portions of the bowel are normal in appearance. There are no areas of increased signal intensity. The gallbladder is surgically absent. No intrahepatic biliary radical dilatation. Dilated extrahepatic bile ducts. The common hepatic duct is dilated, measures 1.3 cm. The common bile duct is dilated, measures 1.0 cm with smooth distal tapering. No ductal stones. The pancreas is normal in bulk and signal intensities. No abnormally enhancing foci within. No peripancreatic fluid collections. The visualized portions of the thoracic and lumbar spine are normal. IMPRESSION: Status post cholecystectomy. Dilated extrahepatic bile ducts with smooth distal CBD tapering. No ductal stones. This is likely due to the prior cholecystectomy. Stable fluid collection along the left iliac fossa superiorly extending and indenting on the lower pole of the left kidney. /[place]
--- NOTE | 2024-12-19 10:16 | PN ---
GASTROENTEROLOGY PROGRESS NOTE Date of Visit: Dec 19, 2024 Time of Visit: 10:08 Events / Notes: [ MRCP negative for choledocholithiasis. Findings: Status post cholecystectomy. Dilated extrahepatic bile ducts with smooth distal CBD tapering. No ductal stones. This is likely due to the prior cholecystectomy. Stable fluid collection along the left iliac fossa superiorly extending and indenting on the lower pole of the left kidney.] Review of Systems: CONSTITUTIONAL: No malaise or change in sensation of wellbeing. ENMT: No rhinorrhea, otorrhea, sinus pain, ear ache. CARDIOVASCULAR: No angina, palpitations, orthopnea or paroxysmal dyspnea. RESPIRATORY: No SOB. GASTROINTESTINAL: No abdominal pain, nausea, vomiting, diarrhea, hematemesis, melena or change in the patient's habitual bowel movements consistency/number. GENITOURINARY: No dysuria, hematuria or change in bladder continence. MUSCULOSKELETAL: No new muscle pain or decrease in muscular strength. No new joint swelling, redness or tenderness. SKIN: No new rash. Physical Exam: GEN: Awake, alert, oriented in person, time and place, and in no acute distress. HEENT: No rhinorrhea. Oral pharyngeal mucosa is, moist and within normal limits. CHEST:Lung auscultation revealed normal breath sounds bilaterally. CARDIAC: PMI is within normal limits. Heart sounds are regular. ABD: Soft, tender to epigastric region, and not distended. No peritoneal signs on palpation. Normal bowel sounds. EXT: No cyanosis or clubbing. No edema. SKIN: Intact. No rashes. JOINTS: No evidence of synovitis or acute arthritis. NEURO: Alert and oriented to name, place and person. No focal motor deficits. Normal speech. Strength is normal. Vital Signs (last 8hr) Date Time Temp Pulse Resp B/P (MAP) Pulse Ox O2 Delivery O2 Flow Rate FiO2 12/19/24 08:00 97.5 64 17 114/60 98 Room Air 12/19/24 04:00 98.1 69 18 99/55 93 Room Air Laboratory: [ ] Laboratory: Test 12/19/24 06:17 12/19/24 05:47 12/19/24 04:50 12/18/24 13:07 Range/Units Whole Blood Glucose 98 70-110 MG/DL Sodium Level 139 136-145 mmol/L Potassium Level 3.0 *L 3.5-5.1 mmol/L Chloride Level 106 101-111 mmol/L Carbon Dioxide Level 29 21-32 mmol/L Blood Urea Nitrogen 4 L 7-18 mg/dL Creatinine 0.6 0.5-1.0 mg/dL Glomerular Filtration Rate Calc 113 >90 mL/min Random Glucose 92 70-105 mg/dL Total Calcium 8.0 L 8.5-10.1 mg/dL White Blood Count 4.8 # 4.8-10.8 K/uL Red Blood Count 3.23 L 4.00-5.50 MIL/uL Hemoglobin 7.7 L 12.0-16.0 g/dL Hematocrit 26.6 L 36-48 % Mean Corpuscular Volume 82.4 79-99 fL Mean Corpuscular Hemoglobin 23.8 L 27.0-33.0 pg Mean Corpuscular Hemoglobin Concent 28.9 L 32.0-36.0 g/dL Red Cell Distribution Width 14.9 11.0-15.5 % Platelet Count 263 130-400 K/uL Mean Platelet Volume 10.3 7.5-10.5 fL Nucleated Red Blood Cells 0.0 0.0-0.19 % Procalcitonin < 0.05 L 0.05-0.5 ng/mL Test 12/18/24 06:27 12/17/24 18:12 Range/Units Immature Granulocyte % (Auto) 0.3 0-1 % Neutrophils (%) (Auto) 50.4 40.0-77.0 % Lymphocytes (%) (Auto) 38.3 21.0-51.0 % Monocytes (%) (Auto) 6.5 3.0-13.0 % Eosinophils (%) (Auto) 3.9 0.0-8.0 % Basophils (%) (Auto) 0.6 0.0-5.0 % Neutrophils # (Auto) 1.8 1.8-7.7 K/uL Lymphocytes # (Auto) 1.4 1.0-4.8 K/uL Monocytes # (Auto) 0.2 0.1-1.0 K/uL Eosinophils # (Auto) 0.14 0.00-0.70 K/uL Basophils # (Auto) 0.02 0.00-0.20 K/uL Absolute Immature Granulocyte (auto 0.01 0-1 K/uL Reticulocyte Count (auto) 1.46206 0.42-2.23 % Immature Reticulocyte Fraction 14.10 H 0.18-0.48 % Phosphorus Level 2.5 2.5-4.9 mg/dL Magnesium Level 1.90 1.80-2.40 mg/dL Iron Level 16 L 50-170 mcg/dL Total Iron Binding Capacity 329 250-450 mcg/dL Percent Iron Saturation 4.8 L 22-44 % Ferritin 14 L 15-150 ng/mL Vitamin B12 Level 323 193-986 pg/mL Influenza Type A Antigen Negative For Type A NEGATIVE Influenza Type B Antigen Negative For Type B NEGATIVE SARS-CoV-2 Antigen (Rapid) PRESUMPTIVE NEGATIVE NEGATIVE Current Medications Medications (Trade) Dose Ordered Sig/Sandi Route PRN Reason Start Time Stop Time Status Last Admin Dose Admin Acetaminophen (TYLenol 325MG TAB) 650 mg Q6H PRN PO TEMPERATURE GREATER THAN 101.5 12/17/24 03:30 01/16/25 03:29 Acetaminophen/ Hydrocodone Bitart (NORco 5/325MG) 1 tab Q4H PRN PO MODERATE PAIN (4-6) 12/17/24 16:00 12/22/24 15:59 12/18/24 14:13 1 TAB Alprazolam (XANax 0.25MG) 0.25 mg BID PO 12/18/24 09:00 01/17/25 08:59 12/19/24 08:13 0.25 MG Ceftazidime (ForTAZ/TAZidime) 0.5 gm Q12H IVPB 12/19/24 07:00 12/19/24 07:08 DC Ceftazidime 0.5 gm/Sodium Chloride 50 ml @ 100 mls/hr Q12H IVPB 12/19/24 08:00 12/29/24 07:59 12/19/24 08:12 100 MLS/HR Ceftriaxone Sodium (ROCEphine 1G INJ) 1 gm Q24H IVPB 12/17/24 16:00 12/17/24 15:53 DC Famotidine (Pepcid 20mg Tab) 20 mg DAILY PO 12/17/24 09:00 01/16/25 08:59 12/19/24 08:13 20 MG Hydralazine HCl (APRESOLine 20MG INJ) 10 mg Q6H PRN IV For:SBP above 160;DBP above 90 12/17/24 03:30 01/16/25 03:29 Hydromorphone HCl (DiLAUDid 0.5MG INJ) 0.25 mg Q4H PRN IVP SEVERE PAIN (7-10) 12/17/24 04:30 12/17/24 15:41 DC 12/17/24 15:27 0.25 MG Hydromorphone HCl (DiLAUDid 0.5MG INJ) 0.25 mg Q4H PRN IVP SEVERE PAIN (7-10) 12/17/24 21:30 12/22/24 21:29 12/19/24 07:02 0.25 MG Iron Sucrose 300 mg/Sodium Chloride 250 ml @ 83 mls/hr DAILY IV 12/19/24 09:00 12/21/24 08:59 12/19/24 09:10 83 MLS/HR Lactulose (Constulose 20gm/ 30ml Udcup) 20 gm BID PRN PO CONSTIPATION 12/17/24 03:30 01/16/25 03:29 Levetiracetam (kepPRA 500 MG TABLET) 1,000 mg BID PO 12/17/24 09:00 01/16/25 08:59 12/19/24 08:13 1,000 MG Lidocaine (Lidocaine Patch 4%) 1 each Q24H TP 12/17/24 18:00 01/16/25 17:59 12/18/24 18:31 1 EACH Morphine Sulfate (morPHINE 4MG SYG) 2 mg Q4H PRN IVP SEVERE PAIN (7-10) 12/17/24 03:30 12/17/24 04:05 DC Ondansetron HCl (zoFRAN 4MG INJ) 4 mg Q6H PRN IV NAUSEA/VOMITING 12/17/24 03:30 01/16/25 03:29 12/18/24 06:50 4 MG Phenol (Sore Throat [place]) 1 SPRAY Q4H PRN PO SORE THROAT 12/17/24 14:30 01/16/25 14:29 Potassium Chloride 40 meq/ Sodium Chloride 1,000 ml @ 200 mls/hr Q5H STAT IV 12/17/24 02:28 12/17/24 07:27 DC 12/17/24 04:01 200 MLS/HR Potassium Chloride 100 ml @ 100 mls/hr AD PRN IV POTASSIUM PROTOCOL 12/17/24 03:30 01/16/25 03:29 12/19/24 06:58 100 MLS/HR Diagnostics / Radiology: [COPY/PASTE HERE IF NO REPORTS PLEASE DELETE SECTION] Assessment: Epigastric pain Nausea and Vomiting [Common bile duct dilation Intrahepatic duct dilation Seizure ] Plan: Case discussed with Dr. Stoddard No Gi endoscopic intervention at this time. Will awaite MRCP results Gi prophylaxis with pantoprazole 40mg IV Bid Please call with questions, concerns,and change in clinical status Thank you for this consult. ] MANN DENNIS NP Dec 19, 2024 10:16
[2024-12-19 12:00] VITALS: BP_SYST 116; BP_SYST 169; BP_DIAS 76; BP_DIAS 90; PULSE 69; PULSE 77; RESP 18; TEMP 97.8
--- NOTE | 2024-12-19 13:10 | DS ---
Discharge Summary Hospital Course Summary: Patient information: Name: Ovidio Dorsey Date of : 1980 Admission date: 12/17/2024 Attending physician: Dr. Derrell Miller Admitting diagnosis: Seizures, POA Hypokalemia, POA Nausea, vomiting, POA Chronic anemia, POA Anxiety Neurogenic bladder Spina bifida Depression Chronic UTIs with a central line in place to the right chest, patient states last antibiotics for two weeks ago, patient states her infectious disease doctor, Dr. Ferrera told her she did not need anymore outpatient antibiotics. Course in hospital: She is a 44-year-old female with past medical history of anxiety, neurogenic bladder, spina bifida, chronic pancreatitis, gastroparesis, seizures, depression, BP shunt, recent UTI positive for Klebsiella pneumoniae, recent fluid collection in the abdomen positive for Enterococcus faecalis, recurrent utis and surgical history of J-tube placement, small bowel resection, vp care management shunt placement, colostomy placement and closure, cholecystectomy, appendectomy. She also takes linzes and vonnie for constipation. She has a bladder reconstructive surgery and has a sphincter in her bladder which is helping her to pee. Patient denies any alcohol use, patient denies well. Patient denies illicit drug use. patient lives with her roommate, Zachary. She also has a Finley catheter placed on right side of chest . When we asked about the Finley catheter she said that she is having recurrent UTI frequently and the organisms causing the infection are resistant to all oral antibiotics so they are giving IV antibiotics through the catheter. They left the in place as they couldn't find veins to place catheter and she needs IV antibiotics frequently. Recently, she was treated with outpatinet IV antibiotics-tobramycin, vancomycin and gentamicin for UTI after she [facility] . She came to the ER with chief complaint of seizures. She also has nausea vomiting and abdominal pain. In the emergency department hemoglobin 8.6, hematocrit 27.6, potassium 3.0 . Keppra is started for seizures. The patient is admitted for further management. Her seizures are controlled with IV keppra and then it was changed to oral. A CT head is done and it showed no neurological abnormality. Neurology was consulted and they recommended consult epileptologist Dr. Carlton Negron in [facility] for comprehensive evaluation and management, consider EEG monitoring to evaluate for psychogenic non- epileptic seizures, follow up with them after discharge. She also complained of anxiety which is controlled with alprazolam. Her urinalysis showed leukocyte esterase is 75, WBC is 6 to 10, RBC is 6 to 10. We sent urine for culture and was started on ceftazidime. urine culture show gram negative rods and ID consult recommended no antibiotics this time. She has abdominal pain which is controlled with Dilaudid, lidocaine, narco.CT of abdomen and pelvis showed dilated CBD. Gastroenterology saw her and they recommended MRCP- MRCP with cholangiopancreatography which showed dilated extrahepatic bile ducts with smooth distal CBD tapering. No ductal stones this is likely due to the prior cholecystectomy, stable fluid collection along the left iliac fossa superiorly extending and indenting on the lower pole of the left kidney. They recommended no endoscopic intervention this time. Her labs are in the normal range except for Hb is 7.7, potassium is 3. We ordered iron and replaced potassium. She is cleared for discharge by ID, neurology, gastroenterology . She is medically stable at the time of discharge. Punch Press Operator(s): CONSULTATION REPORT Name: OVIDIO DORSEY Acct: [id number] MR: [id number] : 1980 Admit Date: 12/17/24 PHILOMENA GUERRERO MD [place] [address] [address] CONSULTATION NOTE Date of Service: Dec 18, 2024 Reason for Consultation: Seizures Requesting Physician: Hospitalist HISTORY OF PRESENT ILLNESS: Ms. Dorsey is a 44-year-old right-handed lady with a history of anxiety, depression, chronic pancreatitis, spina bifida, hydrocephalus with shunt placement, and seizures, presenting with a recent seizure episode and UTI. The patient has a long-standing history of seizures that began at age 13. Her most recent seizure occurred 4 days ago, during which she fell and hit her back. The patient reports losing consciousness during seizures and states that her roommate had to hold her hand during the episode. She also experienced episodes where she has loss of sensation in her right arm. The patient describes that seizures can occur spontaneously, even when she is just sitting. She denies missing any doses of her anti-seizure medication, Keppra (levetiracetam), which she takes at a dose of 1500 mg twice daily. The patient also takes alprazolam twice daily for anxiety management. She confirms taking her morning dose of alprazolam on the day of the seizure. Ms. Dorsey's seizure history includes a previous incident 7 years ago that resulted in a broken right arm. Her last shunt revision was at age 9. She recently experienced a urinary tract infection at [facility] [place] and is currently dg with UTI and started on ceftriaxone. The patient is currently under the care of a psychiatrist, Dr. Fraser, with an upcoming appointment scheduled for the of next month. She has been told multiple times before that this are "emotionally trigger" Seizures. Unknown if by this it represents PNES (psychogenic non epileptic seizures) Medical History - Anxiety - Depression - Chronic pancreatitis - Spina bifida - Recent urinary tract infection - Hydrocephalus diagnosed as an infant, requiring shunt placement - Seizure disorder with onset at age 13 - Right arm fracture due to seizure 7 years ago - Fall with back injury 4 days ago Surgical History - Shunt placement from brain to abdomen for hydrocephalus as a baby - Shunt revision at age 9 Medications and Supplements - Levetiracetam (Keppra) 1500 mg by mouth twice a day - Prescribed by Dr. Jorge Negron from [facility] - For seizures - Alprazolam - Taken twice a day - For anxiety Social History - Living Situation: Lives with a roommate REVIEW OF SYSTEMS Neurological: Positive for seizures with loss of consciousness, arm numbness during seizures. Musculoskeletal: Positive for recent fall with back impact. Psychiatric: Positive for anxiety PAST MEDICAL HISTORY: as above PAST SURGICAL HISTORY: as above PAST SOCIAL HISTORY: unknown FAMILY HISTORY: no for seizures Coded Allergies: No Known Drug Allergies (Verified Allergy, Unknown, 07/12/20) PHYSICAL EXAM EYES: Anicteric. Pupils equal and reactive. HENT: No oral thrush seen, moist Oral mucosa NECK: Supple, no JVD or thyromegaly. LUNGS: Good air entry. No rales, no rhonchi. CARDIOVASCULAR: S1, S2 regular. No murmur heard. ABDOMEN: Soft, non tender, bowel sounds present, no organomegaly CENTRAL NERVOUS SYSTEM: Awake, alert, oriented x 3. No focal deficits. SKIN: No rashes, no swelling. LYMPHATICS: No peripheral lymphadenopathy MUSCULOSKELETAL: No joint swelling, erythema or tenderness. EXTREMITIES: No cyanosis or clubbing BACK: No deformity, no pressure ulcer. GENITOURINARY: No dysuria or hematuria Vital Sign (Last 24 Hours) 12/18/24 05:15 Temp 98.6 Pulse 64 Resp 18 B/P (MAP) 106/56 Pulse Ox 95 O2 Delivery Room Air* O2 Flow Rate 0 FiO2 21 LABS: Laboratory: Test 12/18/24 06:27 12/17/24 18:12 12/17/24 09:36 12/17/24 04:04 Range/Units Sodium Level 138 136-145 mmol/L Potassium Level 3.6 3.5-5.1 mmol/L Chloride Level 108 101-111 mmol/L Carbon Dioxide Level 24 21-32 mmol/L Blood Urea Nitrogen 5 L 7-18 mg/dL Creatinine 0.6 0.5-1.0 mg/dL Glomerular Filtration Rate Calc 113 >90 mL/min Random Glucose 88 70-105 mg/dL Total Calcium 8.2 L 8.5-10.1 mg/dL Phosphorus Level 2.5 2.5-4.9 mg/dL Magnesium Level 1.90 1.80-2.40 mg/dL Influenza Type A Antigen Negative For Type A NEGATIVE Influenza Type B Antigen Negative For Type B NEGATIVE SARS-CoV-2 Antigen (Rapid) PRESUMPTIVE NEGATIVE NEGATIVE Lactic Acid Level 0.9 0.8-2.5 mmol/L Total Bilirubin 0.3 0.2-1.0 mg/dL Direct Bilirubin 0.1 0.0-0.3 mg/dL Aspartate Amino Transf (AST/SGOT) 14 10-37 U/L Alanine Aminotransferase (ALT/SGPT) 22 12-78 U/L Alkaline Phosphatase 129 50-136 U/L Total Protein 5.7 L 6.0-8.3 g/dL Albumin 3.0 L 3.5-5.0 g/dL Lipase 11 L 16-77 U/L Urine Color LIGHT-YELLOW YELLOW Urine Appearance CLEAR CLEAR Urine pH 6.5 5.0-8.0 Urine Specific Walker >1.031 1.001-1.031 Urine Protein NEGATIVE NEGATIVE mg/dL Urine Glucose (UA) NEGATIVE NEGATIVE mg/dL Urine Ketones NEGATIVE NEGATIVE mg/dL Urine Occult Blood MODERATE H NEGATIVE Urine Nitrate NEGATIVE NEGATIVE Urine Bilirubin NEGATIVE NEGATIVE mg/dL Urine Urobilinogen 0.2 0.2-1.0 mg/dL Urine Leukocyte Esterase 75 H NEGATIVE Eliceo/uL Urine RBC 6-10 H 0-1 /HPF Urine WBC 6-10 H 0-1 /HPF Urine Squamous Epithelial Cells MANY 0-2 /HPF Urine Non-Squamous Epithelial Cells 2 0-2 /HPF Urine Bacteria RARE None Seen /HPF Urine Opiates Screen NEGATIVE NEGATIVE Urine Barbiturates Screen NEGATIVE NEGATIVE Urine Phencyclidine Screen NEGATIVE NEGATIVE Urine Amphetamines Screen NEGATIVE NEGATIVE Urine Benzodiazepines Screen POSITIVE H NEGATIVE Urine Cocaine Screen NEGATIVE NEGATIVE Urine Marijuana (THC) Screen NEGATIVE NEGATIVE Test 12/17/24 01:40 Range/Units White Blood Count 5.2 4.8-10.8 K/uL Red Blood Count 3.47 L 4.00-5.50 MIL/uL Hemoglobin 8.6 L 12.0-16.0 g/dL Hematocrit 27.6 L 36-48 % Mean Corpuscular Volume 79.5 79-99 fL Mean Corpuscular Hemoglobin 24.8 L 27.0-33.0 pg Mean Corpuscular Hemoglobin Concent 31.2 L 32.0-36.0 g/dL Red Cell Distribution Width 15.1 11.0-15.5 % Platelet Count 304 130-400 K/uL Mean Platelet Volume 10.2 7.5-10.5 fL Immature Granulocyte % (Auto) 0.2 0-1 % Neutrophils (%) (Auto) 57.9 40.0-77.0 % Lymphocytes (%) (Auto) 31.5 21.0-51.0 % Monocytes (%) (Auto) 8.1 3.0-13.0 % Eosinophils (%) (Auto) 2.1 0.0-8.0 % Basophils (%) (Auto) 0.2 0.0-5.0 % Neutrophils # (Auto) 3.0 1.8-7.7 K/uL Lymphocytes # (Auto) 1.6 1.0-4.8 K/uL Monocytes # (Auto) 0.4 0.1-1.0 K/uL Eosinophils # (Auto) 0.11 0.00-0.70 K/uL Basophils # (Auto) 0.01 0.00-0.20 K/uL Absolute Immature Granulocyte (auto 0.01 0-1 K/uL Nucleated Red Blood Cells 0.0 0.0-0.19 % Red Blood Cell Morphology See comments Whole Blood Ketones Quantitative < 0.1 0.0-0.6 mmol/L Ammonia < 10 L 11-32 umol/L Total Creatine Kinase 53 # 21-232 U/L Human Chorionic Gonadotropin, Quant 0 0-5 mIU/mL Serum Alcohol 4 0-10 mg/dL DIAGNOSTICS / RADIOLOGY: CTH negative for strokes. No hydrocephalus. ASSESSMENT / PLAN: Ms. Dorsey is a 44-year-old right-handed lady with a history of anxiety, depression, chronic pancreatitis, spina bifida, hydrocephalus with shunt placement, and seizures since age 13, presenting with a recent seizure episode. Seizure Disorder Assessment: Patient has a long-standing history of seizures since age 13, with the most recent episode occurring 4 days ago. The seizures are characterized by loss of consciousness and have resulted in injuries, including a broken right arm 7 years ago. Currently on levetiracetam 1500 mg twice daily. The etiology of the seizures is unclear, with potential contributing factors including anxiety, alprazolam dependency, or underlying neurological issues related to her hydro cephalus and shunt placement. Differential diagnoses include epilepsy and/or psychogenic non-epileptic seizures. She will benefit from a continues cEEG video monitoring that can be done as outpatient at home. Plan: - Continue levetiracetam 1500 mg PO twice daily - Refer to epileptologist Dr. Carlton Negron in [facility] for comprehensive evaluation and management - Consider continuous EEG monitoring to evaluate for psychogenic non-epileptic seizures - Follow up with neurologist for ongoing management Anxiety Disorder Assessment: Patient has a history of anxiety and is currently taking alprazolam twice daily. There is concern that uncontrolled anxiety or potential alprazolam dependency may be contributing to the seizure episodes. Plan: - Continue current alprazolam regimen - Follow up with psychiatrist Dr. Fraser on the 3rd of next month to discuss anxiety management Hydrocephalus with Ventriculoperitoneal Shunt Assessment: Patient has a history of hydrocephalus with shunt placement from brain to abdomen as an infant. The last shunt revision was at age 9. It is unclear if the current shunt function is contributing to the patient's neurological symptoms. Plan: - Shunt evaluation to be included in the comprehensive neurological assessment by the epileptologist Thank you for your consultation. I will sign off. PHILOMENA GUERRERO MD Dec 18, 2024 07:23 Electronically Signed by: PHILOMENA GUERRERO MD12/18/24 0723 Electronically Co-Signed by: CONSULTATION REPORT Name: OVIDIO DORSEY Acct: [id number] MR: [id number] : 1980 Admit Date: 12/17/24 MANN DENNIS NP [facility] [address] [place] [address] GASTROENTEROLOGY CONSULTATION NOTE Date of Consultation: Dec 18, 2024 Time of Consultation: 16:56 History of Present Illness: [44 yo female patient with past medical history for seizures presented to emergency room with complaints of seizures. CT of abdomen and pelvis findings: A questionable encircling object around the urinary bladder outlet, which is connected with the tubular system that terminates around the right side of the labia majora.Status postcholecystectomy. Dilated CBD and intrahepatic ducts; the CBD measures up to 1.2 cm in diameter. Small ascites is evident, more pronounced at the left lumbar quadrant and pelvic regions. Questionable Tarlov cysts around the lumbosacral region. WBC 3.6, hgb 8.3, platelets 215. CMP significant for BUN 5, calcium 5.2. Total bilirubin, AST,ALT, alk phos are normal. MRCP done and pending results. On exam patient is resting in SF in stretcher. Respirations are unlabored. BBS are clear. Abdomen is soft but tender to epigastric region. Patient reports having epigastric pain with nausea and v omiting for the past 3 days onset after she drank pink lemonade. POC discussed and informed of pending MRCP results. Possible need for EGD or ERCP. Patient V/U.] Review of Systems: CONSTITUTIONAL: No malaise or change in sensation of wellbeing. ENMT: No rhinorrhea, otorrhea, sinus pain, ear ache. CARDIOVASCULAR: No angina, palpitations, orthopnea or paroxysmal dyspnea. RESPIRATORY: No SOB. GASTROINTESTINAL: No abdominal pain, nausea, vomiting, diarrhea, hematemesis, melena or change in the patient's habitual bowel movements consistency/number. GENITOURINARY: No dysuria, hematuria or change in bladder continence. MUSCULOSKELETAL: No new muscle pain or decrease in muscular strength. No new joint swelling, redness or tenderness. SKIN: No new rash. Past Medical History: Cancer MOTHER, Onset:Unknown (cancer in uterus) Chronic obstructive pulmonary disease BROTHER FH: depression BROTHER, Onset:5 SISTER, Onset:19 Family history: Asthma MOTHER, Onset:[place] Family history: Diabetes mellitus MOTHER, Onset:Unknown FATHER BROTHER SISTER Family history: Hypertension MOTHER, Onset:Unknown FATHER, Onset:Unknown Stroke MOTHER FATHER, Onset:60 years & older Coded Allergies: No Known Drug Allergies (Verified Allergy, Unknown, 07/12/20) Physical Exam: GEN: Awake, alert, oriented in person, time and place, and in no acute distress. HEENT: No rhinorrhea. Oral pharyngeal mucosa is, moist and within normal limits. CHEST:Lung auscultation revealed normal breath sounds bilaterally. CARDIAC: PMI is within normal limits. Heart sounds are regular. ABD: Soft, tender to epigastric region, and not distended. No peritoneal signs on palpation. Normal bowel sounds. EXT: No cyanosis or clubbing. No edema. SKIN: Intact. No rashes. JOINTS: No evidence of synovitis or acute arthritis. NEURO: Alert and oriented to name, place and person. No focal motor deficits. Normal speech. Strength is normal. Vital Sign (Last 24 Hours) 12/18/24 12/18/24 11:37 16:29 Temp 98.4 Pulse 72 Resp 15 B/P (MAP) 134/73 Pulse Ox 100 O2 Delivery Room Air O2 Flow Rate 0.0 FiO2 21 Laboratory: [ ] Laboratory: Test 12/18/24 13:07 12/18/24 06:27 12/17/24 18:12 12/17/24 09:36 Range/Units Procalcitonin < 0.05 L 0.05-0.5 ng/mL White Blood Count 3.6 L 4.8-10.8 K/uL Red Blood Count 3.35 L 4.00-5.50 MIL/uL Hemoglobin 8.3 L 12.0-16.0 g/dL Hematocrit 27.5 L 36-48 % Mean Corpuscular Volume 82.1 79-99 fL Mean Corpuscular Hemoglobin 24.8 L 27.0-33.0 pg Mean Corpuscular Hemoglobin Concent 30.2 L 32.0-36.0 g/dL Red Cell Distribution Width 15.0 11.0-15.5 % Platelet Count 215 # 130-400 K/uL Mean Platelet Volume 10.9 H 7.5-10.5 fL Immature Granulocyte % (Auto) 0.3 0-1 % Neutrophils (%) (Auto) 50.4 40.0-77.0 % Lymphocytes (%) (Auto) 38.3 21.0-51.0 % Monocytes (%) (Auto) 6.5 3.0-13.0 % Eosinophils (%) (Auto) 3.9 0.0-8.0 % Basophils (%) (Auto) 0.6 0.0-5.0 % Neutrophils # (Auto) 1.8 1.8-7.7 K/uL Lymphocytes # (Auto) 1.4 1.0-4.8 K/uL Monocytes # (Auto) 0.2 0.1-1.0 K/uL Eosinophils # (Auto) 0.14 0.00-0.70 K/uL Basophils # (Auto) 0.02 0.00-0.20 K/uL Absolute Immature Granulocyte (auto 0.01 0-1 K/uL Nucleated Red Blood Cells 0.0 0.0-0.19 % Reticulocyte Count (auto) 1.93416 0.42-2.23 % Immature Reticulocyte Fraction 14.10 H 0.18-0.48 % Sodium Level 138 136-145 mmol/L Potassium Level 3.6 3.5-5.1 mmol/L Chloride Level 108 101-111 mmol/L Carbon Dioxide Level 24 21-32 mmol/L Blood Urea Nitrogen 5 L 7-18 mg/dL Creatinine 0.6 0.5-1.0 mg/dL Glomerular Filtration Rate Calc 113 >90 mL/min Random Glucose 88 70-105 mg/dL Total Calcium 8.2 L 8.5-10.1 mg/dL Phosphorus Level 2.5 2.5-4.9 mg/dL Magnesium Level 1.90 1.80-2.40 mg/dL Iron Level 16 L 50-170 mcg/dL Total Iron Binding Capacity 329 250-450 mcg/dL Percent Iron Saturation 4.8 L 22-44 % Ferritin 14 L 15-150 ng/mL Vitamin B12 Level 323 193-986 pg/mL Influenza Type A Antigen Negative For Type A NEGATIVE Influenza Type B Antigen Negative For Type B NEGATIVE SARS-CoV-2 Antigen (Rapid) PRESUMPTIVE NEGATIVE NEGATIVE Lactic Acid Level 0.9 0.8-2.5 mmol/L Total Bilirubin 0.3 0.2-1.0 mg/dL Direct Bilirubin 0.1 0.0-0.3 mg/dL Aspartate Amino Transf (AST/SGOT) 14 10-37 U/L Alanine Aminotransferase (ALT/SGPT) 22 12-78 U/L Alkaline Phosphatase 129 50-136 U/L Total Protein 5.7 L 6.0-8.3 g/dL Albumin 3.0 L 3.5-5.0 g/dL Lipase 11 L 16-77 U/L Test 12/17/24 04:04 12/17/24 01:40 Range/Units Urine Color LIGHT-YELLOW YELLOW Urine Appearance CLEAR CLEAR Urine pH 6.5 5.0-8.0 Urine Specific Walker >1.031 1.001-1.031 Urine Protein NEGATIVE NEGATIVE mg/dL Urine Glucose (UA) NEGATIVE NEGATIVE mg/dL Urine Ketones NEGATIVE NEGATIVE mg/dL Urine Occult Blood MODERATE H NEGATIVE Urine Nitrate NEGATIVE NEGATIVE Urine Bilirubin NEGATIVE NEGATIVE mg/dL Urine Urobilinogen 0.2 0.2-1.0 mg/dL Urine Leukocyte Esterase 75 H NEGATIVE Eliceo/uL Urine RBC 6-10 H 0-1 /HPF Urine WBC 6-10 H 0-1 /HPF Urine Squamous Epithelial Cells MANY 0-2 /HPF Urine Non-Squamous Epithelial Cells 2 0-2 /HPF Urine Bacteria RARE None Seen /HPF Urine Opiates Screen NEGATIVE NEGATIVE Urine Barbiturates Screen NEGATIVE NEGATIVE Urine Phencyclidine Screen NEGATIVE NEGATIVE Urine Amphetamines Screen NEGATIVE NEGATIVE Urine Benzodiazepines Screen POSITIVE H NEGATIVE Urine Cocaine Screen NEGATIVE NEGATIVE Urine Marijuana (THC) Screen NEGATIVE NEGATIVE Red Blood Cell Morphology See comments Whole Blood Ketones Quantitative < 0.1 0.0-0.6 mmol/L Ammonia < 10 L 11-32 umol/L Total Creatine Kinase 53 # 21-232 U/L Human Chorionic Gonadotropin, Quant 0 0-5 mIU/mL Serum Alcohol 4 0-10 mg/dL Current Medications Medications (Trade) Dose Ordered Sig/Sandi Route PRN Reason Start Time Stop Time Status Last Admin Dose Admin Acetaminophen (TYLenol 325MG TAB) 650 mg Q6H PRN PO TEMPERATURE GREATER THAN 101.5 12/17/24 03:30 01/16/25 03:29 Acetaminophen/ Hydrocodone Bitart (NORco 5/325MG) 1 tab Q4H PRN PO MODERATE PAIN (4-6) 12/17/24 16:00 12/22/24 15:59 12/18/24 14:13 1 TAB Alprazolam (XANax 0.25MG) 0.25 mg BID PO 12/18/24 09:00 01/17/25 08:59 12/18/24 09:10 0.25 MG Ceftriaxone Sodium (ROCEphine 1G INJ) 1 gm Q24H IVPB 12/17/24 16:00 12/17/24 15:53 DC Famotidine (Pepcid 20mg Tab) 20 mg DAILY PO 12/17/24 09:00 01/16/25 08:59 12/18/24 07:51 20 MG Hydralazine HCl (APRESOLine 20MG INJ) 10 mg Q6H PRN IV For:SBP above 160;DBP above 90 12/17/24 03:30 01/16/25 03:29 Hydromorphone HCl (DiLAUDid 0.5MG INJ) 0.25 mg Q4H PRN IVP SEVERE PAIN (7-10) 12/17/24 04:30 12/17/24 15:41 DC 12/17/24 15:27 0.25 MG Hydromorphone HCl (DiLAUDid 0.5MG INJ) 0.25 mg Q4H PRN IVP SEVERE PAIN (7-10) 12/17/24 21:30 12/22/24 21:29 12/18/24 15:44 0.25 MG Lactulose (Constulose 20gm/ 30ml Udcup) 20 gm BID PRN PO CONSTIPATION 12/17/24 03:30 01/16/25 03:29 Levetiracetam (kepPRA 500 MG TABLET) 1,000 mg BID PO 12/17/24 09:00 01/16/25 08:59 12/18/24 07:51 1,000 MG Lidocaine (Lidocaine Patch 4%) 1 each Q24H TP 12/17/24 18:00 01/16/25 17:59 12/17/24 18:57 1 EACH Morphine Sulfate (morPHINE 4MG SYG) 2 mg Q4H PRN IVP SEVERE PAIN (7-10) 12/17/24 03:30 12/17/24 04:05 DC Ondansetron HCl (zoFRAN 4MG INJ) 4 mg Q6H PRN IV NAUSEA/VOMITING 12/17/24 03:30 01/16/25 03:29 12/18/24 06:50 4 MG Phenol (Sore Throat Bolt) 1 SPRAY Q4H PRN PO SORE THROAT 12/17/24 14:30 01/16/25 14:29 Potassium Chloride 40 meq/ Sodium Chloride 1,000 ml @ 200 mls/hr Q5H STAT IV 12/17/24 02:28 12/17/24 07:27 DC 12/17/24 04:01 200 MLS/HR Potassium Chloride 100 ml @ 100 mls/hr AD PRN IV POTASSIUM PROTOCOL 12/17/24 03:30 01/16/25 03:29 Diagnostics / Radiology: [COPY/PASTE HERE IF NO REPORTS PLEASE DELETE SECTION] Assessment: Epigastric pain Nausea and Vomiting [Common bile duct dilation Intrahepatic duct dilation Seizure ] Plan: Case discussed with Dr. Stoddard No Gi endoscopic intervention at this time. Will awaite MRCP results Gi prophylaxis with pantoprazole 40mg IV Bid Please call with questions, concerns,and change in clinical status Thank you for this consult. ] MANN DENNIS NP Dec 18, 2024 17:00 Electronically Signed by: MANN DENNIS NP12/18/24 3045 Electronically Co-Signed by: Procedure(s): [place] [address] [place] [address] IMAGING REPORT Signed PATIENT: OVIDIO DORSEY MR#: [id number] : 1980 SEX: F AGE: 44 LOCATION: [facility] ORDER 7 STATUS: ADM IN REPORT#: [id number] SERVICE 5 REASON: N/V abdominal pain ORDERING PHYSICIAN: HUMERA FARRELL MD PROCEDURE: ABD PEL WO - CT ABDOMEN/PELVIS W/O CONTRAST EXAM: CT Abdomen and Pelvis without IV contrast CLINICAL HISTORY: Nausea vomiting. Abdominal pain. TECHNIQUE: Thin collimated axial CT images of the abdomen and pelvis were obtained, with sagittal and coronal reformatted images also submitted. A CT scan is done according to ALARA (As Low As Reasonably Achievable). CONTRAST: None. COMPARISON: CT abdomen pelvis dated 10/29/2024. FINDINGS: The included lungs are clear. No focal abnormality within the liver, pancreas, spleen, or adrenals. Status postcholecystectomy. Dilated CBD and intrahepatic ducts; the CBD measures up to 1.2 cm in diameter. Focal cortical scarring with mild caliectasis around the bilateral renal midpole regions. Unremarkable left kidney. Excreted contrast within the bilateral renal collecting systems, ureters, and urinary bladder limits the optimal evaluation of renal system calculi. Chronic cystitis. Questionable encircling object around the urinary bladder outlet, which is connected with the tubular system that terminates around the right side of the labia majora. The uterus and ovaries are within normal limits. No obvious bowel wall thickening, dilatation, or obstruction. Unremarkable appendix. Partially visualized ventriculoperitoneal shunt. Small ascites is evident, more pronounced at the left lumbar quadrant and pelvic regions. No pneumoperitoneum. Limited evaluation of the abdominal vessels due to the lack of intravenous contrast. No abdominal aortic aneurysm is evident. No pathological lymphadenopathy in the abdomen or pelvis. No pneumoperitoneum. No acute bony abnormality is evident. Questionable Tarlov cysts around the lumbosacral region. IMPRESSIONS: No acute process in the abdomen or pelvis. Chronic cystitis. A questionable encircling object around the urinary bladder outlet, which is connected with the tubular system that terminates around the right side of the labia majora. Status postcholecystectomy. Dilated CBD and intrahepatic ducts; the CBD measures up to 1.2 cm in diameter. Small ascites is evident, more pronounced at the left lumbar quadrant and pelvic regions. Questionable Tarlov cysts around the lumbosacral region. Compared to the prior study, there is no significant interval change. /[place] DICTATED BY: DOMITILA FERMIN Jr., MD DATE: 12/17/24543 ELECTRONICALLY SIGNED BY: DOMITILA FERMIN Jr., MD DATE: 12/17/[address] [address] IMAGING REPORT Signed PATIENT: OVIDIO DORSEY MR#: [id number] : 1980 SEX: F AGE: 44 LOCATION: [facility] ORDER : 12/17/24 1432 STATUS: ADM IN REPORT#: [id number] SERVICE 1420 REASON: Seizures ORDERING PHYSICIAN: MAURY BECERRIL MD PROCEDURE: HEAD WO - CT HEAD/BRAIN W/O CONTRAST EXAM: CT Head Without Intravenous Contrast. CLINICAL HISTORY: 44-year-old female with seizures. TECHNIQUE: Axial computed tomography images of the head/brain without intravenous contrast. Dose reduction technique was used including one or more of the following: automated exposure control, adjustment of mA and kV according to patient size, and/or iterative reconstruction. CONTRAST: None. COMPARISON: CT head from 04/06/2024. FINDINGS: BRAIN: There is a right-sided ventricular shunt tip in the anterior aspect of the third ventricle. No acute intraparenchymal hemorrhage. No mass lesion. No CT evidence for acute territorial infarct. No midline shift or extra-axial collection. VENTRICLES: The findings are similar compared to the prior CT head from 04/06/2024 at 3:19 pm. ORBITS: The orbits are unremarkable. SINUSES AND MASTOIDS: The paranasal sinuses and mastoid air cells are clear. SOFT TISSUES: No significant facial or scalp soft tissue swelling evident. No radiopaque foreign body is seen. BONES: No acute skull fracture. IMPRESSION: 1. No acute intracranial abnormality. 2. Right-sided ventricular shunt tip in the anterior aspect of the third ventricle, similar to prior CT head from 04/06/2024 at 3:19 pm. /[place] DICTATED BY: CHARLIE PHAM MD DATE: 12/17/241840 ELECTRONICALLY SIGNED BY: CHARLIE PHAM MD DATE: 12/17/241840 [place] [address] [address] IMAGING REPORT Signed PATIENT: OVIDIO DORSEY MR#: [id number] : 1980 SEX: F AGE: 44 LOCATION: [facility] ORDER 1541 STATUS: ADM IN REPORT#: [id number] SERVICE 1531 REASON: picc line in place ORDERING PHYSICIAN: JEANE LEWIS MD PROCEDURE: CXR1VW - CHEST 1VW EXAM: CR Chest, 1 views. CLINICAL HISTORY: Cough. COMPARISON: None provided. FINDINGS: CVP line is seen with distal tip in right atrium. Possible right sided a ventriculoperitoneal drainage tube is noted. The lungs show no infiltrate or other acute findings. No pleural effusion or pneumothorax. The cardiomediastinal silhouette is within normal limits. No acute osseous abnormality. IMPRESSION: CVP line is seen with distal tip in right atrium. Possible right sided a ventriculoperitoneal drainage tube is noted. No pulmonary infiltrates or pleural effusions. /[place] DICTATED BY: MARIO FULLER MD DATE: 12/18/24951 ELECTRONICALLY SIGNED BY: MARIO FULLER MD DATE: 12/18/24951 [place] [address] IMAGING REPORT Signed PATIENT: OVIDIO DORSEY MR#: [id number] : 1980 SEX: F AGE: 44 LOCATION: 3AH ORDER 2300 STATUS: ADM IN REPORT#: [id number] SERVICE 0800 REASON: DILATED CBD ORDERING PHYSICIAN: KIRAN SWANSON MD PROCEDURE: MRCP WO - MRCP(ABDWO)CHOLANGIOPANCREATOG EXAMINATION: MRCP WITHOUT CONTRAST CLINICAL HISTORY: Dilated CBD TECHIQUE : Multiplanar, multisequence MR images of the abdomen were obtained. MRCP images were created on an independent workstation, and made available in electronic format. COMPARISON: Prior CT abdomen and pelvis on 12/17/2024. FINDINGS: The included chest reveals minimal left pleural effusion. Stable fluid collection measuring 6.0 x 5.6 x 5.6 cm along the left iliac fossa superiorly extending and indenting on the lower pole of the left kidney. Minimal free fluid along perisplenic region. The liver, spleen, right kidney, and bilateral adrenal glands appear grossly unremarkable. The visualized portions of the bowel are normal in appearance. There are no areas of increased signal intensity. The gallbladder is surgically absent. No intrahepatic biliary radical dilatation. Dilated extrahepatic bile ducts. The common hepatic duct is dilated, measures 1.3 cm. The common bile duct is dilated, measures 1.0 cm with smooth distal tapering. No ductal stones. The pancreas is normal in bulk and signal intensities. No abnormally enhancing foci within. No peripancreatic fluid collections. The visualized portions of the thoracic and lumbar spine are normal. IMPRESSION: Status post cholecystectomy. Dilated extrahepatic bile ducts with smooth distal CBD tapering. No ductal stones. This is likely due to the prior cholecystectomy. Stable fluid collection along the left iliac fossa superiorly extending and indenting on the lower pole of the left kidney. 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 She is currently not having any seizures. Levetiracetam IV was changed to oral. Her CT head is normal. Neurology saw her and they think her seizures could be due to TEAM SUPERVISOR shunt and they recommended referral to epileptologist Dr. Carlton Negron in [facility] for comprehensive evaluation and management, consider continuous EEG monitoring to evaluate for psychogenic non-epileptic seizures. Advised to continue oral Levetiracetam. Follow up with Neurology within 2-3 weeks after discharge Follow up with epileptologist Dr. Carlton Negron in [facility] in 2-3 weeks after discharge Urinary tract infection Chronic UTIs with a central line in place to the right chest, patient states last antibiotics for two weeks ago, patient states her infectious disease doctor, Dr. Ferrera told her she did not need anymore outpatient antibiotics. Her urinalysis showed evidence of UIT. We gave a dose of ceftriaxone. Sent urine for culture and it showed gram negative rods. ID saw the patient and they recommended no antibiotics this time. Abdominal pain possibly secondary to recurrent cystitis , nausea and vomiting She complained of abdominal pain and her abdomen is tender to touch. Her pain is controlled with hydromorphone PRN, Narco PRN, lidocaine for pain. Gastroenterology saw her and they recommended MRCP with cholangiopancreatography which showed dilated extrahepatic bile ducts with smooth distal CBD tapering. No ductal stones this is likely due to the prior cholecystectomy, stable fluid collection along the left iliac fossa superiorly extending and indenting on the lower pole of the left kidney. They recommended no intervention this time. Follow up with gastroenterology within 2-3 weeks after discharge Hypokalemia, POA Today her blood work showed potassium is 3.0. We replaced the potassium. Advised to repeat her labs as an outpatient. Nausea, vomiting, POA Today she has no symptoms. Chronic anemia, POA Iron deficiency anemia Her lab work show that Hb is 7.7, HCT is 26.6, MCH is 23.8, MCHC is 28.9. Ordered iron panel and it showed iron 16, TIBC 329, ferritin 14, %saturation is 4.8. Gave a dose of iron sucrose. Advised to repeat labs as an outpatient. Eat food rich in iron such as jaggery, eggs, beans etc. Anxiety Continue alprazolam Discharge Instructions: Date of discharge: 12/19/2024 Discharge instructions: 1) Follow up with primary care physician within 2 to 3 days after discharge. 2) Follow-up with gastroenterology within 2-3 weeks after discharge. 3) Follow up with Psychiatry Dr. Fraser, with an upcoming appointment scheduled on December 26. 4) Follow up with epileptologist Dr. Carlton Negron in [facility] for comprehensive evaluation and management. 5) Follow-up with pain specialist within 2-3 weeks after the discharge 6) Follow-up with Neurology within 2-3 weeks after discharge 7) Continue all medications as prescribed. Do not discontinue or change doses without consulting your PCP. 8) Gradually resume normal activities as tolerated. 9) Continue a balanced diet. 10) Seek immediate medical attention if you experience chest pain, seizures, abdominal pain or severe headache. Discharge to: Home Condition on discharge: Stable Home Medications: Reported Medications Levetiracetam (Levetiracetam) 1,000 Mg Tablet, 1 TAB PO BID for SEIZURES 07/25/24 Linaclotide (Linzess) 290 Mcg Capsule, 1 CAP PO DAILY for 30 Days, #30 CAP 0 Refills 07/17/24 Discontinued Scripts Dicyclomine HCl (Bentyl) 20 Mg Tab, 1 TAB PO BID for irritable bowel symptoms for 10 Days, #20 TAB 0 Refills Prov:NATALIYA JURADO MD 11/16/24 Dicyclomine HCl (Bentyl) 10 Mg Cap, 1 CAP PO Q6HPRN PRN for irritable bowel symptoms for 25 Days, #100 CAP 0 Refills Prov:ISABELL MAYEN MD 11/04/24 Continued Medications: Levetiracetam (Levetiracetam) 1,000 Mg Tablet 1 TAB PO BID for SEIZURES Linaclotide (Linzess) 290 Mcg Capsule 1 CAP PO DAILY for 30 Days, #30 CAP 0 Refills Time spent arranging discharge: 1-30 minutes ATTESTATION BY PHYSICIAN I have seen and examined the patient. I reviewed the documentation, medical decision making, and treatment plan as noted by the resident provider above. I agree with the findings and plan of care. Derrell Miller MD, AKSHAY MD Dec 19, 2024 13:10 JEANE LEWIS MD Dec 19, 2024 20:15
[2024-12-19 16:47] VITALS: BP 127/77; PULSE 88; RESP 18; TEMP 97.6
--- NOTE | 2024-12-19 18:40 | NUR ---
DISCHARGE DISCHARGE EDUCATION AND INSTRUCTIONS PROVIDED TO PATIENT PATIENT AWARE TO CONTINUE WITH MEDICATIONS PRESCRIBED BY MD PATIENT AWARE TO FOLLOW UP WITH DOCTORS ORDERED BY MD ALL QUESTIONS ANSWERED
== END 2024-12-19 18:35 | disposition home or self-care (01) | DRG 53 ==
LOC: EDH 00:46 → EDHIP 03:09 → 3AH 12-18 21:15
PROVIDERS: ADMIT Internal Medicine; ATTEND Internal Medicine
DX: G40.909 Epilepsy, unspecified, not intractable, without status epilepticus (principal); R18.8 Other ascites; K83.8 Other specified diseases of biliary tract; N30.01 Acute cystitis with hematuria; E87.1 Hypo-osmolality and hyponatremia; D50.9 Iron deficiency anemia, unspecified; E86.0 Dehydration; E87.6 Hypokalemia; F41.9 Anxiety disorder, unspecified; N31.9 Neuromuscular dysfunction of bladder, unspecified; F32.A Depression, unspecified; B96.89 Other specified bacterial agents as the cause of diseases classified elsewhere; G89.29 Other chronic pain; K86.1 Other chronic pancreatitis; J44.9 Chronic obstructive pulmonary disease, unspecified; K59.00 Constipation, unspecified; Z51.5 Encounter for palliative care; Z80.49 Family history of malignant neoplasm of other genital organs; Z81.8 Family history of other mental and behavioral disorders; Z82.0 Family history of epilepsy and other diseases of the nervous system; Z82.3 Family history of stroke; Z82.49 Family history of ischemic heart disease and other diseases of the circulatory system; Z82.5 Family history of asthma and other chronic lower respiratory diseases; Z83.3 Family history of diabetes mellitus; Z90.49 Acquired absence of other specified parts of digestive tract; Z93.3 Colostomy status; Z98.2 Presence of cerebrospinal fluid drainage device
CPT/HCPCS: 36415; 70450; 71045; 74176; 74181; 80048; 80076; 80177; 80305; 81001; 82010; 82140; 82550; 82607; 82728; 82948; 83605; 83690; 83735; 84100; 84145; 84702; 85025; 85027; 87086; 87186; 87426; 87804; 93005; 96374; 99285; G0378; J0696; J0713; J1171; J1756; J1953; J2270; J2405; J3480; J7030; J7050

== ENCOUNTER 2024-12-23 01:48 | Emergency (ER) | payer MEDICAID ==
[~2024-12-23] VITALS: Ht 147.3 cm; Wt 62.6 kg
[~2024-12-23 01:48] MED LIST changes: -DICY10 PO; -DICY20TA2 PO
[2024-12-23 01:56] VITALS: BP 109/74; PULSE 102; RESP 16; TEMP 98
[2024-12-23] MEDS: LIDOCAINE/PRILOCAINE CREAM 5GM TUBE TP ONE (02:46)
--- NOTE | 2024-12-23 02:50 | NUR ---
2 minutes after taking tylenol for pain, patient requested something stronger for pain, emla cream applied to abrasion. while applying emla cream, patient stated it is not working and needs something stronger. er physician informed. no orders at this time
--- NOTE | 2024-12-23 03:11 | ERN ---
General Chief Complaint: Laceration/Avulsion Stated Complaint: LACERATION Time Seen by MD: 01:50 Source: patient History of Present Illness Initial Comments Patient is a 44-year-old female coming in complaining of right lower extremity abrasion. Per patient she cut her lower extremity with a piece of glass. She is here for further evaluation. Allergies: Coded Allergies: No Known Drug Allergies (Verified Allergy, Unknown, 07/12/20) Home Meds Reported Medications Levetiracetam (Levetiracetam) 1,000 Mg Tablet, 1 TAB PO BID for SEIZURES 07/25/24 Linaclotide (Linzess) 290 Mcg Capsule, 1 CAP PO DAILY for 30 Days, #30 CAP 0 Refills 07/17/24 Discontinued Scripts Dicyclomine HCl (Bentyl) 20 Mg Tab, 1 TAB PO BID for irritable bowel symptoms for 10 Days, #20 TAB 0 Refills Prov:NATALIYA JURADO MD 11/16/24 Dicyclomine HCl (Bentyl) 10 Mg Cap, 1 CAP PO Q6HPRN PRN for irritable bowel symptoms for 25 Days, #100 CAP 0 Refills Prov:ISABELL MAYEN MD 11/04/24 Past Medical History Past Medical History: Endometriosis, Seizure, Other Medical History Other: SPINAL BIFIDA Past Surgical History: Other Surgical History Other: [employer] 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 HEAD/FACE: No signs of trauma. EENT: No eye pain, no blurred vision, no tearing, no double vision, no ear pain, no ear discharge, no nose pain, no nasal congestion, no throat pain, no throat swelling, no mouth pain. RESPIRATORY: No cough, no orthopnea, no SOB, no stridor, no wheezing. CARDIOVASCULAR: No chest pain, no edema, no palpitations, no syncope. GASTROINTESTINAL/ABDOMINAL: No abdominal pain, no constipation, no diarrhea, no nausea, no vomiting. GENITOURINARY: No abnormal discharge, no dysuria, no frequent urination, no hematuria. No complaints of pain in the genitals. MUSCULOSKELETAL: No back pain, no gout, no joint pain, no joint swelling, no muscle pain, no muscle stiffness, no neck pain. INTEGUMENTARY: No change in color, no change in hair/nails, no dryness, lesion, no lumps, no rash. NEUROLOGICAL/PSYCH: No anxiety, not depressed, no emotional problem, no headache, no numbness, no pre-existing deficit, no history of seizures, no tremors, no weakness. HEMATOLOGIC/LYMPHATIC: Not anemic, no history of blood clots, no apparent bleeding, no bruising, glands not swollen. All Systems Negative, Except as Noted. Physical Exam Physical Exam Dictation VITAL SIGNS: Reviewed. GENERAL APPEARANCE: Alert, oriented x3, no acute distress, obese. HEAD AND FACE: Non-traumatic. EYES: PERRL, pink conjunctivas, eyelid no trauma, anterior chamber clear. EARS: Pinnas intact and no signs of trauma or erythema. Ear canals clear and no discharge. TMs no erythema. NOSE: No discharge, no bleeding. OROPHARYNX: Mouth normal, teeth no caries, tongue pink. Pharynx clear, no erythema. Tonsils no exudates, no abscesses noted. Mucous membrane moist. NECK: Supple, non-tender, no thyromegaly, no masses, no JVD, no bruits. BREAST: Deferred. CHEST: No tenderness, no crepitus, no paradoxical movement, no retractions. LUNGS: Clear, well-ventilated, symmetric, no rales, no wheezing, no rhonchi, no stridor, good breath sounds bilaterally. HEART: Regular rate, regular rhythm, no murmur, no gallops. VASCULAR: No peripheral edema. ABDOMEN: Soft, positive bowel sounds, nondistended, no guarding, nontender, no rebound, no masses no hepatomegaly, no splenomegaly, no Jimenez's sign, no hernias. RECTAL: Deferred. GENITAL: Deferred. NEUROLOGICAL: Normal speech, gross motor function intact, gross sensory function intact. MUSCULOSKELETAL: Neck nontender, full range of motion, back nontender, full range of motion. EXTREMITIES: Nontender, full range of motion. SKIN: Color pink, dry, no turgor, no rash, thin skin lacerations/abrasion on right lower extremity, no abrasions, no contusions. LYMPHATICS: Deferred. Results Laboratory and Microbiology Labs Reviewed?: Yes EKG/XRAY/US/CT/MRI X-RAY Comment X-ray Right tib-fib-NAD MDM MDM: Differential diagnosis: In laceration, skin abrasion, Rationale: Tests considered and ordered secondary to shared decision making include: Previous outside records reviewed: Old ER visits. Risk of complication and/or morbidity or mortality of patient management: None Medications-Per medication reconciliation Need for hospitalization: Patient does not meet criteria for hospitalization. Need for emergency major/minor surgery: No Patient is a 44-year-old female coming in complaining of lower extremity pain. Patient states he is a has a an abrasion on the anterior part of the right lower extremity upon evaluation no sutures needed laceration is minimal 6 cm but approximated on its own. Wound was covered and wrapped with nonstick gauze. Patient will be discharged in stable condition I did advised her appropriate follow up with the PCP. ED Course Orders Procedure Category Date Status Time Tibia/Fibula 2vws Rt RAD 12/23/24 Taken 02:00 Tetanus,Diphtheria PHA 12/23/24 Complete Tox [Adult] (Diphther 02:00 Acetaminophen 500mg PHA 12/23/24 Complete Tab (Tylenol 500mg T 02:00 Lidocaine/Prilocaine PHA 12/23/24 Complete (Emla) 02:00 Current Medications Medications (Trade) Dose Ordered Sig/Sandi Route PRN Reason Start Time Stop Time Status Last Admin Dose Admin Acetaminophen (TYLenol 500MG TAB) 500 mg ONCE ONCE PO 12/23/24 02:00 12/23/24 02:09 DC 12/23/24 02:46 Lidocaine/ Prilocaine (Emla) 1 appl ONCE ONCE TP 12/23/24 02:00 12/23/24 02:10 DC 12/23/24 02:46 Tetanus/ Diphtheria Toxoids Adsorbed (DiphthERIA-teTANUS TOXOID [ADULT]/ DECAVAC) 0.5 ml ONCE ONCE IM 12/23/24 02:00 12/23/24 02:09 DC 12/23/24 02:46 Vital Signs Date Time Temp Pulse Resp B/P (MAP) Pulse Ox O2 Delivery O2 Flow Rate FiO2 12/23/24 01:56 98.1 102 16 109/74 99 0 DX & DISP Disposition: Discharge Departure Impression: Primary Impression: Skin abrasion Condition: Stable Additional Instructions: FOLLOW-UP WITH PRIMARY CARE PROVIDER IN 1 TO 2 DAYS. TAKE MEDICATIONS DIRECTED HERE IN THE EMERGENCY ROOM. OKAY TO CONTINUE HOME MEDICATIONS UNLESS OTHERWISE DISCUSSED DURING YOUR VISIT IN THE EMERGENCY ROOM TODAY. RETURN TO YOUR NEAREST EMERGENCY ROOM IF SYMPTOMS WORSEN OR IF THERE IS NO IMPROVEMENT. CALL 911 IF YOU NEED IMMEDIATE ASSISTANCE. TAKE TYLENOL [id number] NEEDED AND IF NO CONTRAINDICATIONS ARE PRESENT. INCREASE ORAL HYDRATION. A WOUND CULTURE OR URINE CULTURE WAS ORDERED HERE IN THE EMERGENCY ROOM DEPARTMENT PLEASE FOLLOW-UP WITH PRIMARY CARE PROVIDER AND ADVISE THEM TO GET REPORTS FROM OUR FACILITY. IF YOU HAD ANY STEPHAN WRAP/SPLINTS THAT WERE APPLIED HERE, PLEASE DO NOT REMOVE THEM UNTIL YOU SEE YOUR PRIMARY CARE OR SPECIALTY. Referrals: Referrals: FRANKI VILLAFANA MD (PCP) ANILAMARCH Latoya MARTINEZ Time of Disposition: 03:10 JOSE ALDRIDGE MD Dec 23, 2024 03:11
--- NOTE | 2024-12-23 03:58 | HMCIMG ---
EXAM: CR Right Tibia and Fibula, 2 views. CLINICAL HISTORY: Laceration. COMPARISON: None provided. FINDINGS: No acute fracture or aggressive appearing osseous lesion. Joint spaces are within normal limits. The soft tissues are unremarkable. IMPRESSION: No acute bony abnormality is evident. /[place]
== END 2024-12-23 03:45 | disposition home or self-care (01) ==
LOC: EDH 01:48
DX: S80.811A Abrasion, right lower leg, initial encounter (principal); Z98.2 Presence of cerebrospinal fluid drainage device; W25.XXXA Contact with sharp glass, initial encounter; Y93.89 Activity, other specified; Y92.89 Other specified places as the place of occurrence of the external cause; Y99.8 Other external cause status
CPT/HCPCS: 73590; 90471; 90714; 99283; J3490

== ENCOUNTER 2024-12-27 22:50 | Emergency (ER) | payer MEDICAID ==
[~2024-12-27] VITALS: Ht 147.3 cm; Wt 60.3 kg
[2024-12-28 00:26] LABS: APPEARANCE,URINE CLOUDY (CLEAR); GLUCOSE, URINE (UA) NEGATIVE (NEGATIVE); LEUKOCYTE ESTERASE ,URINE NEGATIVE Leu/uL (NEGATIVE); NITRATE,URINE NEGATIVE (NEGATIVE); OCCULT BLOOD,URINE NEGATIVE (NEGATIVE)
[2024-12-28 00:28] LABS: ADD UA MICROSCOPIC YES
[2024-12-28 00:29] LABS: SQUAMOUS EPITHELIAL CELL,UR RARE /HPF (0-2)
[2024-12-28 00:32] LABS: CREATININE 0.8 mg/dL (0.5-1.0); GLOMERULAR FILTR. RATE CALC 93.0 mL/min (>90); GLUCOSE,RANDOM 102.0 mg/dL (70-105); IMMATURE GRANULOCYTE ABSOLUTE 0.04 K/uL (0-1); NUCLEATED RED BLOOD CELLS 0.0 % (0.0-0.19); PLATELET COUNT (AUTO) 348 K/uL (130-400); RED BLOOD CELL COUNT(AUTO) 4.40 MIL/uL (4.00-5.50); RED CELL DISTRIBUTION WIDTH 19.6 % (11.0-15.5); SODIUM SERUM 138.0 mmol/L (136-145); UREA NITROGEN, BLOOD 6.0 mg/dL (7-18); WHITE BLOOD COUNT (AUTO) 8.0 K/uL (4.8-10.8)
[2024-12-28 00:41] VITALS: BP 126/74; PULSE 88; RESP 18; TEMP 98.3; O2SAT 99
--- NOTE | 2024-12-28 00:56 | ERN ---
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 She has been plagued with GERD and diarrhea and nausea and vomiting for years. She is seeing a automotive light mechanic to his still trying to work things through what so far has not been able to control her symptoms. She comes in today because she said she fell five days ago and since that time she has had trouble eating solid food that every time she eats something it feels like it is being forced down her stomach and collects as a small ball. She can not tolerate liquids and stay hydrated. However she still has nausea emesis and diarrhea. Allergies: Coded Allergies: No Known Drug Allergies (Verified Allergy, Unknown, 07/12/20) Home Meds Reported Medications Levetiracetam (Levetiracetam) 1,000 Mg Tablet, 1 TAB PO BID for SEIZURES 07/25/24 Linaclotide (Linzess) 290 Mcg Capsule, 1 CAP PO DAILY for 30 Days, #30 CAP 0 Refills 07/17/24 Past Medical History Past Medical History: Endometriosis, Seizure, Other Medical History Other: SPINAL BIFIDA Past Surgical History: Other Surgical History Other: DIESEL MAINTENANCE TECHNICIAN SHUNT, 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 Family History Family History: Negative Social History Social History: Negative, Lives with family, Other Female( History) History: Not Applicable : 0 Constitutional: (-) chills, (-) diaphoresis, (-) fever, (-) malaise, (-) weakness, (-) other documentation EENTM: (-) eye pain, (-) blurred vision, (-) tearing, (-) double vision, (-) ear pain, (-) ear discharge, (-) nose pain, (-) nose congestion, (-) throat pain, (-) Throat swelling, (-) mouth pain, (-) tooth pain, (-) mouth swelling, (-) other documentation Respiratory: (-) cough, (-) orthopnea, (-) short of breath, (-) stridor, (-) wheezing, (-) other documentation Cardiovascular: (-) chest pain, (-) edema, (-) palpitations, (-) syncope, (-) dyspnea on exertion, (-) other documentation Gastrointestinal/Abdominal: (+) nausea, (+) vomiting, (+) diarrhea Genitourinary: (-) vaginal discharge, (-) vaginal bleeding, (-) dysuria, (-) frequency, (-) hematuria, (-) pain, (-) other documentation Musculoskeletal: (-) Neck pain, (-) back pain, (-) Flank Pain, (-) joint pain, (-) joint swelling, (-) muscle pain, (-) muscle stiffness, (-) gout, (-) other documentation Physical Exam General Appearance: (+) mild distress Orientation: (+) alert, (+) oriented x 3 Head/Face Trauma: No Eye: bilateral eye normal inspection, bilateral eye PERRL, bilateral eye EOMI Ear, Nose, Throat: (+) hearing grossly normal, (+) normal ENT inspection, (+) moist mucous membraine Neck: (+) normal inspection, (+) supple, (+) full range of motion Respiratory: (+) chest non-tender, (+) lungs clear, (+) well ventilated Heart: (+) regular, (+) no gallop Vascular: (+) no edema, (+) normal peripheral pulse Gastrointestinal: (+) soft, (+) bowel sound present, (+) tender Gastrointestinal Comment Patient says she has a bilateral lower quadrant abdominal tenderness and masses. The exam shows mild tenderness but no palpable masses no peritoneal signs. Results Laboratory and Microbiology Lab and Micro Result Laboratory Tests Test 12/28/24 00:10 White Blood Count 8.0 K/uL (4.8-10.8) Red Blood Count 4.40 MIL/uL (4.00-5.50) Hemoglobin 11.3 g/dL (12.0-16.0) L Hematocrit 36.5 % (36-48) Mean Corpuscular Volume 83.0 fL (79-99) Mean Corpuscular Hemoglobin 25.7 pg (27.0-33.0) L Mean Corpuscular Hemoglobin Concent 31.0 g/dL (32.0-36.0) L Red Cell Distribution Width 19.6 % (11.0-15.5) H Platelet Count 348 K/uL (130-400) Mean Platelet Volume 10.3 fL (7.5-10.5) Immature Granulocyte % (Auto) 0.5 % (0-1) Neutrophils (%) (Auto) 68.7 % (40.0-77.0) Lymphocytes (%) (Auto) 22.0 % (21.0-51.0) Monocytes (%) (Auto) 5.7 % (3.0-13.0) Eosinophils (%) (Auto) 2.6 % (0.0-8.0) Basophils (%) (Auto) 0.5 % (0.0-5.0) Neutrophils # (Auto) 5.5 K/uL (1.8-7.7) Lymphocytes # (Auto) 1.8 K/uL (1.0-4.8) Monocytes # (Auto) 0.5 K/uL (0.1-1.0) Eosinophils # (Auto) 0.21 K/uL (0.00-0.70) Basophils # (Auto) 0.04 K/uL (0.00-0.20) Absolute Immature Granulocyte (auto 0.04 K/uL (0-1) Nucleated Red Blood Cells 0.0 % (0.0-0.19) Urine Color COLORLESS (YELLOW) Urine Appearance CLOUDY (CLEAR) H Urine pH 7.0 (5.0-8.0) Urine Specific [place] 1.006 (1.001-1.031) Urine Protein NEGATIVE mg/dL (NEGATIVE) Urine Glucose (UA) NEGATIVE mg/dL (NEGATIVE) Urine Ketones NEGATIVE mg/dL (NEGATIVE) Urine Occult Blood NEGATIVE (NEGATIVE) Urine Nitrate NEGATIVE (NEGATIVE) Urine Bilirubin NEGATIVE mg/dL (NEGATIVE) Urine Urobilinogen 0.2 mg/dL (0.2-1.0) Urine Leukocyte Esterase NEGATIVE [place]/uL Urine RBC None /HPF (0-1) Urine WBC 2-5 /HPF (0-1) H Urine Squamous Epithelial Cells RARE /HPF (0-2) Urine Bacteria FEW /HPF (None Seen) Urine Hyaline Casts 2-5 /LPF (0-1 /LPF) H Sodium Level 138 mmol/L (136-145) Potassium Level 2.6 mmol/L (3.5-5.1) *L Chloride Level 99 mmol/L (101-111) L Carbon Dioxide Level 28 mmol/L (21-32) Blood Urea Nitrogen 6 mg/dL (7-18) L Creatinine 0.8 mg/dL (0.5-1.0) Glomerular Filtration Rate Calc 93 mL/min (>90) Random Glucose 102 mg/dL (70-105) Total Calcium 8.7 mg/dL (8.5-10.1) MDM MDM: Differential diagnosis: Dehydration, electrolyte abnormality, gastroenteritis, celiac sprue, Rationale: Tests considered and ordered secondary to shared decision making include: Previous outside records reviewed: Old ER visits. Risk of complication and/or morbidity or mortality of patient management: None Medications-Per medication reconciliation Need for hospitalization: Patient does meet criteria for hospitalization. Need for emergency major/minor surgery: No There are no social concerns with this patient. Prescription drug management Prescriptions will include symptomatic care Patient's prior external medical records from other ER visits were reviewed by me as indicated. Prior testing and results from previous visits were reviewed. Prior tests were taken into account with medical decision making and resource utilization, independent historian/historians were used to obtain complete medical history. I independently interpreted the test that were performed, results were reviewed by me and considered findings on radiology if ordered. Patient's chemistry panel shows a hypokalemia. This was corrected with oral potassium. Otherwise her chemistry panel is normal her CBC is normal her urine analysis is normal in her KUB is normal. ED Course Orders Procedure Category Date Status Time Abd 1vw RAD 12/27/24 Taken 23:38 Basic Metabolic Panel LAB 12/27/24 Complete 23:50 Cbc With Differential LAB 12/27/24 In Process 23:50 Urinalysis Profile LAB 12/27/24 Complete 23:50 Morphine 4mg Syg PHA 12/27/24 Complete (Morphine 4mg Syg) 23:45 Potassium Bicarb/Cit PHA 12/28/24 In Process Ac 25meq (K-Lyte Ta 01:00 Current Medications Medications (Trade) Dose Ordered Sig/Sandi Route PRN Reason Start Time Stop Time Status Last Admin Dose Admin Morphine Sulfate (morPHINE 4MG SYG) 2 mg ONCE ONCE IM 12/27/24 23:45 12/27/24 23:55 DC 12/28/24 00:43 Potassium Bicarbonate (K-Lyte Tablet Eff 25 Meq Tablet.eff) 50 meq ONCE ONCE PO 12/28/24 01:00 12/28/24 01:01 12/28/24 00:44 Vital Signs Date Time Temp Pulse Resp B/P (MAP) Pulse Ox O2 Delivery O2 Flow Rate FiO2 12/28/24 00:41 98.2 88 18 126/74 99 Room Air* 0 21 12/27/24 23:10 98.4 92 20 132/82 98 Room Air* 0 21 12/27/24 22:52 98.4 95 18 133/89 98 Room Air DX & DISP Disposition: Discharge Departure Impression: Primary Impression: Abdominal pain Additional Impressions: Gastritis, Hypokalemia Condition: Stable Additional Instructions: You have an appointment with your automotive light mechanic in days please keep that appointment. Please mentioned this ED visit and your hypokalemia to him perhaps you need to take some potassium supplements. You express difficulty eating solids to add but you are able to keep liquids down. As long as you are able to stay well hydrated you should be fine. You can try and broth or soft/pureed foods as well. Please stay well hydrated. Referrals: FRANKI VILLAFANA MD (PCP) ISABELL MAYEN MD Dec 28, 2024 00:56
--- NOTE | 2024-12-28 01:11 | HMCIMG ---
EXAM: CR Abdomen, 1 view. CLINICAL HISTORY: Pain. COMPARISON: X-ray abdomen dated 07/25/24. FINDINGS: Stable JUNIOR FINANCIAL ANALYST shunt in place with its tip in the left upper quadrant. Stable post-cholecystectomy clips in place. Stable postoperative surgical clips in the right lower quadrant and right hemipelvis. Redemonstrated fecal loading of the large bowel loops. Nonobstructed nonspecific bowel gas pattern. No free air evident. No abnormal calcification. No aggressive appearing osseous lesion. IMPRESSION: No acute process. No gross interval changes. /[place]
[2024-12-29] MEDS ORDERED: ONDA-243 PO (09:11)
== END 2024-12-28 01:43 | disposition home or self-care (01) ==
LOC: EDH 22:50
DX: K29.70 Gastritis, unspecified, without bleeding (principal); R10.9 Unspecified abdominal pain; E87.6 Hypokalemia; Z98.2 Presence of cerebrospinal fluid drainage device; Z79.899 Other long term (current) drug therapy
CPT/HCPCS: 99284; 80048; 85025; 81001; 36415; 74018; 96374; 96372; J2405; J2270

== ENCOUNTER 2024-12-29 04:53 | Emergency (ER) | payer MEDICAID ==
[~2024-12-29] VITALS: Ht 147.3 cm; Wt 60.3 kg
--- NOTE | 2024-12-29 05:08 | NUR ---
PT PRESENTS WITH A PICC LINE LOCATED TO THE RIGHT SIDE OF PT. BOTH LINES FLUSHED WITH NO PROBLEMS. PT REPORTS NO PAIN AT SITE AT THIS TIME.
--- NOTE | 2024-12-29 05:08 | NUR ---
PT CARE ASSUMED AT THIS TIME
--- NOTE | 2024-12-29 05:26 | ERN ---
General Chief Complaint: Nausea,Vomiting,Diarrhea Stated Complaint: N/V/D Time Seen by MD: 04:57 History of Present Illness Initial Comments 44-year-old female with chronic diarrhea chronic stomach upset chronic pain comes in with complaints of nausea vomiting and diarrhea. She was here last night with the same complaint and was discharged home after tolerating some food and liquid potassium replacement. 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 Otherwise the review of systems is negative. Physical Exam General Appearance: (+) no apparent distress Orientation: (+) alert, (+) oriented x 3 Gastrointestinal: (+) soft, (+) non-tender, (+) bowel sound present Results Laboratory and Microbiology Lab and Micro Result Laboratory Tests Test 12/29/24 05:04 12/29/24 05:40 12/29/24 08:04 Total Bilirubin 0.3 mg/dL (0.2-1.0) Direct Bilirubin 0.1 mg/dL (0.0-0.3) Aspartate Amino Transf (AST/SGOT) 23 U/L (10-37) Alanine Aminotransferase (ALT/SGPT) 29 U/L (12-78) Alkaline Phosphatase 152 U/L (50-136) H Total Protein 7.5 g/dL (6.0-8.3) Albumin 4.5 g/dL (3.5-5.0) Lipase 32 U/L (16-77) Sodium Level 137 mmol/L (136-145) Potassium Level 3.2 mmol/L (3.5-5.1) L Chloride Level 100 mmol/L (101-111) L Carbon Dioxide Level 28 mmol/L (21-32) Blood Urea Nitrogen 15 mg/dL (7-18) Creatinine 0.8 mg/dL (0.5-1.0) Glomerular Filtration Rate Calc 93 mL/min (>90) Random Glucose 109 mg/dL (70-105) H Total Calcium 9.1 mg/dL (8.5-10.1) White Blood Count 9.5 K/uL (4.8-10.8) Red Blood Count 4.46 MIL/uL (4.00-5.50) Hemoglobin 11.6 g/dL (12.0-16.0) L Hematocrit 36.8 % (36-48) Mean Corpuscular Volume 82.5 fL (79-99) Mean Corpuscular Hemoglobin 26.0 pg (27.0-33.0) L Mean Corpuscular Hemoglobin Concent 31.5 g/dL (32.0-36.0) L Red Cell Distribution Width 20.2 % (11.0-15.5) H Platelet Count 350 K/uL (130-400) Mean Platelet Volume 10.4 fL (7.5-10.5) Immature Granulocyte % (Auto) 0.6 % (0-1) Neutrophils (%) (Auto) 72.9 % (40.0-77.0) Lymphocytes (%) (Auto) 18.7 % (21.0-51.0) L Monocytes (%) (Auto) 5.6 % (3.0-13.0) Eosinophils (%) (Auto) 1.8 % (0.0-8.0) Basophils (%) (Auto) 0.4 % (0.0-5.0) Neutrophils # (Auto) 6.9 K/uL (1.8-7.7) Lymphocytes # (Auto) 1.8 K/uL (1.0-4.8) Monocytes # (Auto) 0.5 K/uL (0.1-1.0) Eosinophils # (Auto) 0.17 K/uL (0.00-0.70) Basophils # (Auto) 0.04 K/uL (0.00-0.20) Absolute Immature Granulocyte (auto 0.06 K/uL (0-1) Nucleated Red Blood Cells 0.0 % (0.0-0.19) MDM MDM: Differential diagnosis: Rationale: Tests considered and ordered secondary to shared decision making include: Previous outside records reviewed: Old ER visits. Risk of complication and/or morbidity or mortality of patient management: None Medications-Per medication reconciliation Need for hospitalization: Patient does not meet criteria for hospitalization. Need for emergency major/minor surgery: No There are no social concerns with this patient. Prescription drug management Prescriptions will include symptomatic care Patient's prior external medical records from other ER visits were reviewed by me as indicated. Prior testing and results from previous visits were reviewed. Prior tests were taken into account with medical decision making and resource utilization, independent historian/historians were used to obtain complete medical history. I independently interpreted the test that were performed, results were reviewed by me and considered findings on radiology if ordered. Medical management and examination interpretation discussions were had by me with other qualified healthcare professionals as indicated for the patient's care. 44-year-old female acute on chronic abdominal pain, multiple visits for similar episodes, today labs and flat and upright x-ray looks stable repeat abdominal exam is stable vital signs stable prescriptions given stable for discharge and follow up with the primary care doctor as indicated. ED Course Orders Procedure Category Date Status Time Basic Metabolic Panel LAB 12/29/24 Complete 05:26 Lidocaine Hcl 2% PHA 12/29/24 Complete Viscous (Lidocaine Hcl 05:30 Mag/Alum/Simeth 30ml PHA 12/29/24 Complete (Maalox Plus 30ml) 05:30 Dicyclomine Hcl PHA 12/29/24 Complete (Bentyl 10mg/5ml 05:30 Potassium Bicarb/Cit PHA 12/29/24 Complete Ac 25meq (K-Lyte Ta 07:00 Cbc With Differential LAB 12/29/24 Complete 07:25 Hepatic Function Panel LAB 12/29/24 Complete 07:25 Lipase LAB 12/29/24 Complete 07:25 Abd Comp Decub/Erect RAD 12/29/24 Taken VWS 07:25 Haloperidol Inj PHA 12/29/24 Complete (Haldol Inj) 07:30 Haloperidol Inj PHA 12/29/24 Complete (Haldol Inj) 07:29 Current Medications Medications (Trade) Dose Ordered Sig/Sandi Route PRN Reason Start Time Stop Time Status Last Admin Dose Admin Al Hydroxide/Mg Hydroxide (MAALox PLUS 30ML) 30 ml ONCE ONCE PO 12/29/24 05:30 12/29/24 05:31 DC 12/29/24 05:36 Dicyclomine HCl (Bentyl 10mg/5ml Syrup) 10 mg ONCE ONCE PO 12/29/24 05:30 12/29/24 05:31 DC 12/29/24 05:36 Haloperidol Lactate (Haldol Inj) 2.5 mg ONCE ONCE IM 12/29/24 07:30 12/29/24 07:33 DC Haloperidol Lactate (Haldol Inj) 2.5 mg ONCE STAT IM 12/29/24 07:29 12/29/24 07:33 DC 12/29/24 07:39 Lidocaine HCl (Lidocaine HCl 2% Viscous) 10 ml ONCE ONCE PO 12/29/24 05:30 12/29/24 05:31 DC 12/29/24 05:37 Potassium Bicarbonate (K-Lyte Tablet Eff 25 Meq Tablet.eff) 50 meq ONCE ONCE PO 12/29/24 07:00 12/29/24 07:01 DC 12/29/24 07:27 Vital Signs Date Time Temp Pulse Resp B/P (MAP) Pulse Ox O2 Delivery O2 Flow Rate FiO2 12/29/24 07:19 97.5 99 17 134/92 98 Room Air* 0 21 12/29/24 06:22 99 16 122/78 98 Room Air* 0 21 12/29/24 05:08 98.1 100 17 129/99 97 Room Air* 0 21 12/29/24 04:55 97.5 105 20 139/98 97 Room Air DX & DISP Disposition: Discharge Departure Impression: Primary Impression: Chronic abdominal pain Condition: Stable Scripts Ondansetron (Ondansetron Odt) 4 Mg Tab.rapdis 4 MG PO BID for vomiting for 5 Days, #10 TAB Prov: NATALIYA JURADO MD 12/29/24 Referrals: FRANKI VILLAFANA MD (PCP) ISABELL MAYEN MD Dec 29, 2024 05:26 NATALIYA JURADO MD Dec 29, 2024 09:12
[2024-12-29] MEDS: MAG/ALUM/SIMETH 30 ML UDCUP PO ONE (05:36)
[2024-12-29] MEDS: DICYCLOMINE HCL 10 MG/5 ML ML PO ONE (05:36)
[2024-12-29] MEDS: LIDOCAINE HCL 2% VISCOUS 15 ML UDCUP PO ONE (05:37)
[2024-12-29 06:03] LABS: CREATININE 0.8 mg/dL (0.5-1.0); GLOMERULAR FILTR. RATE CALC 93.0 mL/min (>90); GLUCOSE,RANDOM 109.0 mg/dL (70-105); SODIUM SERUM 137.0 mmol/L (136-145); UREA NITROGEN, BLOOD 15.0 mg/dL (7-18)
--- NOTE | 2024-12-29 07:03 | NUR ---
REPORT GIVEN TO BERONICA CHAPMAN AT THIS TIME
--- NOTE | 2024-12-29 07:15 | NUR ---
PT C/O GENERALIZED ABDOMINAL PAIN.MD INFORMED
--- NOTE | 2024-12-29 07:27 | NUR ---
POTASSIUM REPLACEMENT GIVEN PER ORDERED. PT C/O GENERALIZED ABDOMINAL PAIN. SHE IS SITTING UPRIGHT IN BED,UNLABORED BREATHING. ASKED HER TO PPOINT AT WHERE SHE IS HURTING SHE MADE A GESTURE OF ALL OVER HER ABDOMEN,MD INFORMED. HE ADVISED TO DRAW MORE LABS AND HAVE AN ABDOMINAL XRAY DONE.
[2024-12-29] MEDS ORDERED: HALOPERIDOL INJ 5 MG/ML VIAL IM ONE (07:30)
[2024-12-29] MEDS: HALOPERIDOL INJ 5 MG/ML VIAL IM STA (07:39)
--- NOTE | 2024-12-29 07:39 | NUR ---
HALDOL GIVEN ORDERED.
--- NOTE | 2024-12-29 08:00 | NUR ---
PT TO XRAY.
[2024-12-29 08:14] LABS: IMMATURE GRANULOCYTE ABSOLUTE 0.06 K/uL (0-1); NUCLEATED RED BLOOD CELLS 0.0 % (0.0-0.19); PLATELET COUNT (AUTO) 350 K/uL (130-400); RED BLOOD CELL COUNT(AUTO) 4.46 MIL/uL (4.00-5.50); RED CELL DISTRIBUTION WIDTH 20.2 % (11.0-15.5); WHITE BLOOD COUNT (AUTO) 9.5 K/uL (4.8-10.8)
[2024-12-29 08:39] LABS: ASPARTATE AMINOTRANSFERASE 23.0 U/L (10-37); TOTAL PROTEIN, SERUM 7.5 g/dL (6.0-8.3)
--- NOTE | 2024-12-29 09:00 | NUR ---
PT IS TO BE DISCHARGED.ASKED TO TALK TO
[2024-12-29] MEDS ORDERED: ONDA-243 PO (09:11)
--- NOTE | 2024-12-29 09:11 | HMCIMG ---
EXAM: CR Abdomen, 1 view. CLINICAL HISTORY: Diffuse pain. COMPARISON: Prior abdominal radiograph dated June 06, 2019 FINDINGS: Surgical fatou in the right upper quadrant are probable post-cholecystectomy surgical clips. Probable ventricular peritoneal shunt, traversing along the medial aspect of the right chest wall and tip in the left paracolic gutter and left upper quadrant. Nonobstructed nonspecific bowel gas pattern. No free air is evident. No abnormal calcification. No aggressive appearing osseous lesion. IMPRESSION: No acute process. Surgical fatou in the right upper quadrant are probable post-cholecystectomy surgical clips. Probable ventricular peritoneal shunt, traversing along the medial aspect of the right chest wall and tip in the left paracolic gutter and left upper quadrant. Compared to the prior study, there is no significant interval change except for interval removal of the Carnes's catheter. /[place]
--- NOTE | 2024-12-29 09:30 | NUR ---
PT IS READY FOR DISCHARGE NOW. SHE WILL BE FOLLOWING UP WITH HER PAIN TEAM TO REVIEW HER CHRONIC PAIN MANAGEMENT.
[2024-12-29 09:35] VITALS: BP 121/86; PULSE 98; RESP 16; TEMP 97.5; O2SAT 98
== END 2024-12-29 10:14 | disposition home or self-care (01) ==
LOC: EDH 04:53
DX: G89.29 Other chronic pain (principal); R10.9 Unspecified abdominal pain; R11.2 Nausea with vomiting, unspecified; R19.7 Diarrhea, unspecified; Z98.2 Presence of cerebrospinal fluid drainage device
CPT/HCPCS: 99285; 80076; 80048; 83690; 85025; 36415; 74021; 96372; J1630

== ENCOUNTER 2025-01-06 21:08 | Emergency (ER) | payer MEDICAID ==
[~2025-01-06] VITALS: Ht 147.3 cm; Wt 65.8 kg
[~2025-01-06 21:08] MED LIST changes: +ONDA-243 PO
--- NOTE | 2025-01-07 01:44 | ERN ---
ED Note History of Present Illness Stated Complaint: C/O PAIN WITH SWELLING TO RT LOWER LEG Chief Complaint: Lower Extremity Pain/Injury Time Seen by MD: 21:22 Dictation: This is a 44-year-old obese female with history of spina bifida and multiple medical problems frequent ER visits for pain medication as well as multiple somatic complaints. Patient came in stating that she has gained some weight from usually 130s to 140 with a in a very short time and for the past 3-4 days she has noted swelling of her lower extremities. He has chronic pain syndrome and is under pain management physician Dr. Morgan. She denied any fever but states that she has chronic recurrent UTIs because of her shoes No headaches. No shortness of breath. Temperature 98.2 pulse 110 respirations 20 blood pressure 150/88 with a pulse oximetry of 98% on room air Her chronic medical problems include spina bifida, ventriculoperitoneal shunt placement, augmentation and reconstruction of the bladder during childhood, questionable diverticulum oil of the bladder, chronic cystitis, chronic pain management. He has a history of seizures and drug-seeking behavior-documented in the chart Allergies: Coded Allergies: No Known Drug Allergies (Verified Allergy, Unknown, 07/12/20) Home Meds Active Scripts Ondansetron (Ondansetron Odt) 4 Mg Tab.rapdis, 4 MG PO BID for vomiting for 5 Days, #10 TAB Prov:NATALIYA JURADO MD 12/29/24 Reported Medications Levetiracetam (Levetiracetam) 1,000 Mg Tablet, 1 TAB PO BID for SEIZURES 07/25/24 Linaclotide (Linzess) 290 Mcg Capsule, 1 CAP PO DAILY for 30 Days, #30 CAP 0 Refills 07/17/24 Past Medical History Past Medical History: Other Additional Past Medical Hx: HX OF SPINAL BIFIDA Surgical History: Other Surgical History Other: SHUNT TO HEAD Family History: Negative Social History: Negative, Lives with family, Other History: Not Applicable : 0 RN Note Reviewed/Agreed w/PFSH: Yes Review of System Dictation Constitutional: Negative for fever,chills, and weight loss positive for weight gain Eyes: Negative for injury, pain,redness, and discharge ENT: Negative for injury,pain or swelling Cardiovascular: Negative for chest pain, palpitations, and positive for lower extremity edema chronically Respiratory: Negative for shortness of breath, cough, and wheezing, Abdomen/GI: Negative for abdominal pain, nausea, vomiting, diarrhea, and constipation Back: Negative for injury and pain : Negative for injury, bleeding and discharge MS/Extremity: Negative for injury and deformity Skin: Negative for rash, and discoloration Neuro: Negative for headache, weakness, numbness, tingling, and seizure Psych: Negative for suicide ideation, homicidal ideation, and hallucinations Initial Vital Sign VS Vital Signs Date Time Temp Pulse Resp B/P (MAP) Pulse Ox O2 Delivery O2 Flow Rate FiO2 01/06/25 21:10 98.2 110 20 150/88 98 Room Air Physical Exam Dictation General: awake, alert, NAD short obese Head/Face: Normocephalic, atraumatic Eyes: PERRL, EOMI, vision at baseline ENT: oral cavity clear, TMs clear, no signs of infection Neck: Trachea midline, supple, no nuchal rigidity Cardiovascular: RRR, normal S1/S2, No MRGs, no JVD Respiratory: CTAB, no respiratory distress, No rales or wheezes Abdomen: Soft, non-tender, non-distended, normal bowel sounds, no guarding or rebound. Skin: Warm, dry, normal turgor, no rash MS/Extremity: Pulses equal, no cyanosis, neurovascular intact, FROM Neuro: COAx4, GCS 15, strength 5/5, CN 2-12 intact, normal cerebellar exam, normal gait, Psych: Normal behavior, mood, and affect normal Extremities-1+ edema without any palpable cords, Homans sign is negative Results (Laboratory/Radiology) Laboratory/Radiology Laboratory Tests Test 01/07/25 01:20 Urine Color COLORLESS (YELLOW) Urine Appearance CLEAR (CLEAR) Urine pH 6.5 (5.0-8.0) Urine Specific Murphy 1.005 (1.001-1.031) Urine Protein NEGATIVE mg/dL (NEGATIVE) Urine Glucose (UA) NEGATIVE mg/dL (NEGATIVE) Urine Ketones NEGATIVE mg/dL (NEGATIVE) Urine Occult Blood +- (TRACE) (NEGATIVE) H Urine Nitrate NEGATIVE (NEGATIVE) Urine Bilirubin NEGATIVE mg/dL (NEGATIVE) Urine Urobilinogen 0.2 mg/dL (0.2-1.0) Urine Leukocyte Esterase NEGATIVE Eliceo/uL Urine RBC 2-5 /HPF (0-1) H Urine WBC 2-5 /HPF (0-1) H Urine Squamous Epithelial Cells RARE /HPF (0-2) Urine Bacteria None /HPF (None Seen) Labs Reviewed?: Yes ED Course ED Course Orders Procedure Category Date Status Time Furosemide 20 Mg PHA 01/07/25 Complete Tablet (Lasix 20mg 01:30 Potassium Bicarb/Cit PHA 01/07/25 Complete Ac 25meq (K-Lyte Ta 01:30 Urinalysis Profile LAB 01/07/25 Complete 01:48 Hydromorphone 0.5mg PHA 01/07/25 In Process Syg (Dilaudid 0.5mg 03:30 Ondansetron Odt 4mg PHA 01/07/25 In Process Tab (Zofran 4mg Odt) 03:30 Current Medications Medications (Trade) Dose Ordered Sig/Sandi Route PRN Reason Start Time Stop Time Status Last Admin Dose Admin Furosemide (LASix 20MG TAB) 20 mg ONCE ONCE PO 01/07/25 01:30 01/07/25 01:34 DC 01/07/25 01:51 Hydromorphone HCl (DiLAUDid 0.5MG INJ) 0.5 mg ONCE ONCE IM 01/07/25 03:30 01/07/25 03:31 Ondansetron HCl (zoFRAN 4MG ODT) 4 mg ONCE ONCE SL 01/07/25 03:30 01/07/25 03:31 Potassium Bicarbonate (K-Lyte Tablet Eff 25 Meq Tablet.eff) 25 meq ONCE ONCE PO 01/07/25 01:30 01/07/25 01:34 DC 01/07/25 01:51 Vital Signs Date Time Temp Pulse Resp B/P (MAP) Pulse Ox O2 Delivery O2 Flow Rate FiO2 01/06/25 21:10 98.2 110 20 150/88 98 Room Air Medical Decision Making MDM Differential diagnosis: Dependent edema, hypothyroidism, anasarca, venous insufficiency, weight gain This is a 44-year-old obese female with history of spina bifida and multiple medical problems frequent ER visits for pain medication as well as multiple somatic complaints. Patient came in stating that she has gained some weight from usually 130s to 140 with a in a very short time and for the past 3-4 days she has noted swelling of her lower extremities. He has chronic pain syndrome and is under pain management physician Dr. Morgan. She denied any fever but states that she has chronic recurrent UTIs because of her shoes No headaches. No shortness of breath. Temperature 98.2 pulse 110 respirations 20 blood pressure 150/88 with a pulse oximetry of 98% on room air Her chronic medical problems include spina bifida, ventriculoperitoneal shunt placement, augmentation and reconstruction of the bladder during childhood, questionable diverticulum oil of the bladder, chronic cystitis, chronic pain management. He has a history of seizures and drug-seeking behavior-documented in the chart Patient has had multiple labs drawn within the past 10 days and I reviewed the CBC BNP 7 CMP. She also had x-ray of the abdomen and multiple imaging studies which I reviewed. In October 2024 her TSH level was 7.07. I believe that she came in today mostly asking for pain medication. I explained to her that she is under the care of a a physician managing her pain and it is very important for her to honor her opioid agreement with the physician not be seeking pain medications from multiple sources. She needs to follow up to have optimization of her pain control. Rationale: Tests considered and ordered secondary to shared decision making include: Previous outside records reviewed: Old ER visits. Risk of complication and/or morbidity or mortality of patient management: None Medications-Per medication reconciliation Need for hospitalization: Patient does not meet criteria for hospitalization. Need for emergency major/minor surgery: No There are no social concerns with this patient. Prescription drug management Prescriptions will include symptomatic care Patient's prior external medical records from other ER visits were reviewed by me as indicated. Prior testing and results from previous visits were reviewed. Prior tests were taken into account with medical decision making and resource utilization, independent historian/historians were used to obtain complete medical history. I independently interpreted the test that were performed, results were reviewed by me and considered findings on radiology if ordered. Medical management and examination interpretation discussions were had by me with other qualified healthcare professionals as indicated for the patient's care. DX & DISP Disposition: Discharge Departure Impression: Primary Impression: Chronic pain syndrome Additional Impressions: Anasarca, Spina bifida, ANIMAL CARETAKER (ventriculoperitoneal) shunt status, History of augmentation of urinary bladder Condition: Stable Additional Instructions: Patient and the caregiver have been informed of all the diagnostic tests and the imaging conducted during the today's visit to the emergency room and has verbalized understanding of the results I have personally reviewed and interpreted all diagnostic exams performed here in the ER today as well as the vital signs documented by the nursing staff. The patient is now being discharged to home and should follow up with the primary care physician or the specialist as directed by the ER staff. Referrals: FRANKI VILLAFANA MD (PCP) HUMERA FARRELL MD Jan 07, 2025 01:43
[2025-01-07 01:58] LABS: APPEARANCE,URINE CLEAR (CLEAR); GLUCOSE, URINE (UA) NEGATIVE (NEGATIVE); LEUKOCYTE ESTERASE ,URINE NEGATIVE Leu/uL (NEGATIVE); NITRATE,URINE NEGATIVE (NEGATIVE); OCCULT BLOOD,URINE +- (TRACE) (NEGATIVE)
[2025-01-07 02:00] LABS: ADD UA MICROSCOPIC YES
[2025-01-07 02:01] LABS: SQUAMOUS EPITHELIAL CELL,UR RARE /HPF (0-2)
[2025-01-07 03:53] VITALS: BP 148/82; PULSE 104; RESP 18; TEMP 98.4; O2SAT 98
== END 2025-01-07 04:00 | disposition home or self-care (01) ==
LOC: EDH 21:08
DX: Q05.9 Spina bifida, unspecified (principal); G89.4 Chronic pain syndrome; Z98.2 Presence of cerebrospinal fluid drainage device; Z79.899 Other long term (current) drug therapy
CPT/HCPCS: 99284; 81001; 96372; J1171

== ENCOUNTER 2025-01-14 23:09 | Emergency (ER) | payer MEDICAID ==
[~2025-01-14] VITALS: Ht 147.3 cm; Wt 65.8 kg
--- NOTE | 2025-01-14 23:36 | ERN ---
ED Note History of Present Illness Stated Complaint: ABD PAIN, N/V/D, GBW Chief Complaint: Abdominal Pain Time Seen by MD: 23:11 Dictation: 44-year-old female presents to ER via EMS complaints of abdominal pain nausea vomiting onset today. Denies any fever or diarrhea Allergies: Coded Allergies: No Known Drug Allergies (Verified Allergy, Unknown, 07/12/20) Home Meds Active Scripts Ondansetron (Ondansetron Odt) 4 Mg Tab.rapdis, 4 MG PO BID for vomiting for 5 Days, #10 TAB Prov:NATALIYA JURADO MD 12/29/24 Reported Medications Levetiracetam (Levetiracetam) 1,000 Mg Tablet, 1 TAB PO BID for SEIZURES 07/25/24 Linaclotide (Linzess) 290 Mcg Capsule, 1 CAP PO DAILY for 30 Days, #30 CAP 0 Refills 07/17/24 Past Medical History Past Medical History: Other Additional Past Medical Hx: HX OF SPINAL BIFIDA Surgical History: Other Surgical History Other: SHUNT TO HEAD Family History: Negative Social History: Negative, Lives with family, Other History: Not Applicable : 0 Review of System Dictation CONSTITUTIONAL: NEGATIVE FOR FEVER,CHILLS, AND WEIGHT LOSS EYES: NEGATIVE FOR INJURY, PAIN,REDNESS, AND DISCHARGE ENT: NEGATIVE FOR INJURY,PAIN OR SWELLING CARDIOVASCULAR: NEGATIVE FOR CHEST PAIN, PALPITATIONS, AND EDEMA RESPIRATORY: NEGATIVE FOR SHORTNESS OF BREATH, COUGH, WHEEZING, AND PLEURITIC CHEST PAIN ABDOMEN/GI: Positive abdominal pain, nausea, vomiting BACK: NEGATIVE FOR PAIN OR INJURY : NEGATIVE FOR INJURY, BLEEDING AND DISCHARGE MS/EXTREMITY: NEGATIVE FOR INJURY AND DEFORMITY SKIN: NEGATIVE FOR RASH, AND DISCOLORATION NEURO: NEGATIVE FOR HEADACHE, WEAKNESS, NUMBNESS, TINGLING, AND SEIZURE PSYCH: NEGATIVE FOR SUICIDE IDEATION, HOMICIDAL IDEATION, AND HALLUCINATIONS ALLERGY/IMMUNOLOGY: NEGATIVE FOR HIVES, RASH, AND ALLERGIES ALL SYSTEMS NEGATIVE, EXCEPT NOTED ABOVE. 13 POINT REVIEW OF SYSTEMS ASSESSED AND ALL NEGATIVE EXCEPT FOR ABOVE. Initial Vital Sign VS Vital Signs Date Time Temp Pulse Resp B/P (MAP) Pulse Ox O2 Delivery O2 Flow Rate FiO2 01/14/25 23:12 98.1 90 20 117/77 97 Room Air 0 Physical Exam Dictation General: awake, alert, NAD Head/Face: Normocephalic, atraumatic Eyes: PERRL, EOMI, vision at baseline ENT: oral cavity clear, TMs clear, no signs of infection Neck: Trachea midline, supple, no nuchal rigidity Cardiovascular: RRR, normal no JVD Respiratory: CTAB, no respiratory distress, No rales or wheezes Abdomen: Soft, positive guarding Skin: Warm, dry, normal turgor, no rash MS/Extremity: Pulses equal, no cyanosis, neurovascular intact, FROM Neuro: COAx4, GCS 15, strength 5/5, CN 2-12 intact, Psych: Normal behavior, mood, and affect normal Results (Laboratory/Radiology) Laboratory/Radiology Laboratory Tests Test 01/14/25 23:33 White Blood Count 10.6 K/uL (4.8-10.8) Red Blood Count 4.04 MIL/uL (4.00-5.50) Hemoglobin 11.0 g/dL (12.0-16.0) L Hematocrit 34.8 % (36-48) L Mean Corpuscular Volume 86.1 fL (79-99) Mean Corpuscular Hemoglobin 27.2 pg (27.0-33.0) Mean Corpuscular Hemoglobin Concent 31.6 g/dL (32.0-36.0) L Red Cell Distribution Width 20.1 % (11.0-15.5) H Platelet Count 336 K/uL (130-400) Mean Platelet Volume 10.9 fL (7.5-10.5) H Immature Granulocyte % (Auto) 0.6 % (0-1) Neutrophils (%) (Auto) 81.2 % (40.0-77.0) H Lymphocytes (%) (Auto) 10.5 % (21.0-51.0) L Monocytes (%) (Auto) 5.5 % (3.0-13.0) Eosinophils (%) (Auto) 2.0 % (0.0-8.0) Basophils (%) (Auto) 0.2 % (0.0-5.0) Neutrophils # (Auto) 8.6 K/uL (1.8-7.7) H Lymphocytes # (Auto) 1.1 K/uL (1.0-4.8) Monocytes # (Auto) 0.6 K/uL (0.1-1.0) Eosinophils # (Auto) 0.21 K/uL (0.00-0.70) Basophils # (Auto) 0.02 K/uL (0.00-0.20) Absolute Immature Granulocyte (auto 0.06 K/uL (0-1) Nucleated Red Blood Cells 0.0 % (0.0-0.19) Red Blood Cell Morphology ANISO 1+ Sodium Level 138 mmol/L (136-145) Potassium Level 2.8 mmol/L (3.5-5.1) *L Chloride Level 102 mmol/L (101-111) Carbon Dioxide Level 24 mmol/L (21-32) Blood Urea Nitrogen 21 mg/dL (7-18) H Creatinine 0.8 mg/dL (0.5-1.0) Glomerular Filtration Rate Calc 93 mL/min (>90) Random Glucose 110 mg/dL (70-105) H Total Calcium 9.2 mg/dL (8.5-10.1) Amylase Level 19 U/L (25-115) L Lipase 22 U/L (16-77) CT Scan Comment: PATIENT: OVIDIO DORSEY MR#: [id number] 030 : 1980 SEX: F AGE: 44 LOCATION: [facility] ORDER STATUS: [facility] REPORT#: [id number] SERVICE REASON: abdominal pain ORDERING PHYSICIAN: SHELLIE SLOAN PROCEDURE: ABD PELWWO - CT ABDOMEN/PELVIS W/WO CONTRAS EXAM: CT Abdomen and Pelvis without and with IV contrast. CLINICAL HISTORY: Pain in the abdomen. TECHNIQUE: Thin collimated axial CT images of the abdomen and pelvis were obtained, with sagittal and coronal reformatted images also submitted. A CT scan is done according to ALARA (As Low As Reasonably Achievable). COMPARISON: CT scan of the abdomen and pelvis. 12/17/2024. FINDINGS: Unremarkable visualized lung parenchyma. There is no focal abnormality appreciated within the liver, pancreas, spleen, or adrenals. Status post cholecystectomy. Stable mild dilatation of the common bile duct measuring up to 12 mm. Interval development of mild bilateral hydronephrosis. There is no obvious bowel wall thickening. Bowel loops are normal in caliber without evidence of obstruction or ileus. The appendix is unremarkable. Hugely distended urinary bladder with lax verdugo. Mild thickening of the urinary bladder wall suggests cystitis. Unremarkable reproductive organs. A questionable encircling object around the urinary bladder outlet, which is connected with the tubular system that terminates around the right side of the labia majora. No lymphadenopathy. Small ascites is evident, more pronounced at the left lumbar quadrant and pelvic regions. No pneumoperitoneum. Partially visualized ventriculoperitoneal shunt. No gross abnormality in the abdominal vessels. There is no acute osseous abnormality. Questionable Tarlov cysts around the lumbosacral region. IMPRESSIONS: No acute process in the abdomen or pelvis. Chronic cystitis. Hugely distended urinary bladder with lax verdugo. Small ascites is evident, more pronounced at the left lumbar quadrant and pelvic regions. Compared to the prior study, there is no significant interval change. Stable other chronic findings as described. /Steger DICTATED BY: DOMITILA FERMIN Jr., MD DATE: 01/15/25304 ED Course ED Course Orders Procedure Category Date Status Time Cbc With Differential LAB 01/14/25 Complete 23:16 Basic Metabolic Panel LAB 01/14/25 Complete 23:16 Lipase LAB 01/14/25 Complete 23:16 Amylase LAB 01/14/25 Complete 23:16 Ondansetron Odt 4mg PHA 01/14/25 Complete Tab (Zofran 4mg Odt) 23:30 Ct Abdomen/Pelvis CT 01/15/25 Resulted W/Wo Contras 00:33 Potassium Bicarb/Cit PHA 01/15/25 Complete Ac 25meq (K-Lyte Ta 01:00 Ketorolac PHA 01/15/25 Complete Tromethamine 15mg/Ml 01:00 Iohexol (Omnipaque) PHA 01/15/25 Complete 01:01 Current Medications Medications (Trade) Dose Ordered Sig/Sandi Route PRN Reason Start Time Stop Time Status Last Admin Dose Admin Iohexol (Omnipaque) 75 ml STK-MED ONCE IV 01/15/25 01:01 01/15/25 01:01 DC Ketorolac Tromethamine (toRADol) 15 mg ONCE ONCE IV 01/15/25 01:00 01/15/25 01:01 DC 01/15/25 01:31 Ondansetron HCl (zoFRAN 4MG ODT) 4 mg ONCE ONCE SL 01/14/25 23:30 01/14/25 23:31 DC 01/14/25 23:58 Potassium Bicarbonate (K-Lyte Tablet Eff 25 Meq Tablet.eff) 25 meq ONCE ONCE PO 01/15/25 01:00 01/15/25 01:01 DC 01/15/25 01:30 Vital Signs Date Time Temp Pulse Resp B/P (MAP) Pulse Ox O2 Delivery O2 Flow Rate FiO2 01/14/25 23:12 98.1 90 20 117/77 97 Room Air 0 Medical Decision Making MDM MDM: Differential diagnosis: Gastroenteritis, gastritis, bacterial stomach infection, viral infection Rationale: Tests considered and ordered secondary to shared decision making include: labs, ECG and radiology Previous outside records reviewed: Old ER visits. Risk of complication and/or morbidity or mortality of patient management: None Medications-Per medication reconciliation Need for hospitalization: Patient does NOT meet criteria for hospitalization. Need for emergency major/minor surgery: No There are no social concerns with this patient. Prescription drug management Prescriptions will include symptomatic care Patient's prior external medical records from other ER visits were reviewed by me as indicated. Prior testing and results from previous visits were reviewed. Prior tests were taken into account with medical decision making and resource utilization, independent historian/historians were used to obtain complete medical history. I independently interpreted the test that were performed, results were reviewed by me and considered findings on radiology if ordered. Labs and CT scan reviewed no acute findings, noted chronic cystitis as previous scans from the past. no new finding. Patient advised to follow up with PCP for pain control. Patient states she does not want to go because he is in [place] as she wants us to give her pain medication in ER. Patient advised she needs to follow up for pain control we can not be doing it from the emergency room DX & DISP Disposition: Discharge Departure Impression: Primary Impression: Chronic pain syndrome Additional Impression: Acute cystitis with hematuria Condition: Stable Additional Instructions: You need to follow up with your primary doctor for pain control. The emergency room is not here to provide you with narcotics. FOLLOW-UP WITH YOUR PCP IN 24-7 2 HOURS AND IN THE EVENT IF SYMPTOMS WORSEN OR AN EMERGENCY OVERNIGHT REPORT TO THE ED IMMEDIATELY Referrals: FRANKI VILLAFANA MD (PCP) SHELLIE SLOAN Jan 14, 2025 23:36
[2025-01-15] LABS: IMMATURE GRANULOCYTE ABSOLUTE 0.06 K/uL (0-1); NUCLEATED RED BLOOD CELLS 0.0 % (0.0-0.19); PLATELET COUNT (AUTO) 336 K/uL (130-400); RED BLOOD CELL COUNT(AUTO) 4.04 MIL/uL (4.00-5.50); RED CELL DISTRIBUTION WIDTH 20.1 % (11.0-15.5); WHITE BLOOD COUNT (AUTO) 10.6 K/uL (4.8-10.8)
[2025-01-15 00:09] LABS: CREATININE 0.8 mg/dL (0.5-1.0); GLOMERULAR FILTR. RATE CALC 93.0 mL/min (>90); GLUCOSE,RANDOM 110.0 mg/dL (70-105); SODIUM SERUM 138.0 mmol/L (136-145); UREA NITROGEN, BLOOD 21.0 mg/dL (7-18)
[2025-01-15] MEDS ORDERED: IOHEXOL-350 75 ML VIAL IV ONE (01:01)
--- NOTE | 2025-01-15 02:06 | HMCIMG ---
EXAM: CT Abdomen and Pelvis without and with IV contrast. CLINICAL HISTORY: Pain in the abdomen. TECHNIQUE: Thin collimated axial CT images of the abdomen and pelvis were obtained, with sagittal and coronal reformatted images also submitted. A CT scan is done according to ALARA (As Low As Reasonably Achievable). COMPARISON: CT scan of the abdomen and pelvis. 12/17/2024. FINDINGS: Unremarkable visualized lung parenchyma. There is no focal abnormality appreciated within the liver, pancreas, spleen, or adrenals. Status post cholecystectomy. Stable mild dilatation of the common bile duct measuring up to 12 mm. Interval development of mild bilateral hydronephrosis. There is no obvious bowel wall thickening. Bowel loops are normal in caliber without evidence of obstruction or ileus. The appendix is unremarkable. Hugely distended urinary bladder with lax verdugo. Mild thickening of the urinary bladder wall suggests cystitis. Unremarkable reproductive organs. A questionable encircling object around the urinary bladder outlet, which is connected with the tubular system that terminates around the right side of the labia majora. No lymphadenopathy. Small ascites is evident, more pronounced at the left lumbar quadrant and pelvic regions. No pneumoperitoneum. Partially visualized ventriculoperitoneal shunt. No gross abnormality in the abdominal vessels. There is no acute osseous abnormality. Questionable Tarlov cysts around the lumbosacral region. IMPRESSIONS: No acute process in the abdomen or pelvis. Chronic cystitis. Hugely distended urinary bladder with lax verdugo. Small ascites is evident, more pronounced at the left lumbar quadrant and pelvic regions. Compared to the prior study, there is no significant interval change. Stable other chronic findings as described. /Otilio
[2025-01-15 02:51] VITALS: BP 124/76; PULSE 70; RESP 18; TEMP 98.2; O2SAT 98
== END 2025-01-15 02:58 | disposition home or self-care (01) ==
LOC: EDH 23:09
DX: G89.4 Chronic pain syndrome (principal); N30.01 Acute cystitis with hematuria; R11.2 Nausea with vomiting, unspecified
CPT/HCPCS: 99285; 82150; 80048; 83690; 85025; 36415; 74178; 96374; J1885; Q9967

== ENCOUNTER 2025-01-18 23:03 | Emergency (ER) | payer MEDICAID ==
[~2025-01-18] VITALS: Ht 147.3 cm; Wt 60.3 kg
[2025-01-18 23:04] VITALS: BP 137/86; PULSE 98; RESP 18; TEMP 98.5
--- NOTE | 2025-01-18 23:09 | NUR ---
UA CUP PROVIDED
[2025-01-18 23:38] LABS: APPEARANCE,URINE CLOUDY (CLEAR); GLUCOSE, URINE (UA) NEGATIVE (NEGATIVE); LEUKOCYTE ESTERASE ,URINE 75 Leu/uL (NEGATIVE); NITRATE,URINE NEGATIVE (NEGATIVE); OCCULT BLOOD,URINE +- (TRACE) (NEGATIVE)
[2025-01-18 23:43] LABS: HCG,QUALITATIVE URINE NEGATIVE (NEGATIVE)
[2025-01-18 23:44] LABS: NON-SQUAMOUS EPITHELIAL CELL 2 /HPF (0-2); SQUAMOUS EPITHELIAL CELL,UR RARE /HPF (0-2)
[2025-01-19 00:46] LABS: IMMATURE GRANULOCYTE ABSOLUTE 0.19 K/uL (0-1); NUCLEATED RED BLOOD CELLS 0.0 % (0.0-0.19); PLATELET COUNT (AUTO) 361 K/uL (130-400); RED BLOOD CELL COUNT(AUTO) 4.94 MIL/uL (4.00-5.50); RED CELL DISTRIBUTION WIDTH 18.6 % (11.0-15.5); WHITE BLOOD COUNT (AUTO) 10.2 K/uL (4.8-10.8)
--- NOTE | 2025-01-19 01:08 | HMCIMG ---
EXAM: CT Abdomen and Pelvis without IV contrast. CLINICAL HISTORY: Pain. TECHNIQUE: Thin collimated axial CT images of the abdomen and pelvis were obtained, with sagittal and coronal reformatted images also submitted. A CT scan is done according to ALARA (As Low As Reasonably Achievable). CONTRAST: None. COMPARISON: CT scan of the abdomen and pelvis. 01/15/2025. FINDINGS: Unremarkable visualized lung parenchyma. There is no focal abnormality appreciated within the liver, pancreas, spleen, or adrenals. Status post cholecystectomy. Stable mild dilatation of the common bile duct measuring up to 12 mm. Interval reduction in bilateral hydronephrosis. Small foci of parenchymal calcification in the upper pole of the left kidney. There is no obvious bowel wall thickening. Bowel loops are normal in caliber without evidence of obstruction or ileus. The appendix is unremarkable. Hugely distended urinary bladder with lax verdugo. Mild thickening of the urinary bladder wall suggests cystitis. A questionable encircling object around the urinary bladder outlet, which is connected with the tubular system that terminates around the right side of the labia majora. Bilateral ovarian cyst, measuring about 2.8 x 3.5 cm on the right side and 1.8 x 2.6 cm on the left side. No lymphadenopathy. Small ascites is evident, more pronounced at the left lumbar quadrant and pelvic regions. No pneumoperitoneum. Partially visualized ventriculoperitoneal shunt. No gross abnormality in the abdominal vessels. There is no acute osseous abnormality. Questionable Tarlov cysts around the lumbosacral region. IMPRESSIONS: No acute process in the abdomen or pelvis. Chronic cystitis. Hugely distended urinary bladder with lax verdugo. Small ascites is evident, more pronounced at the left lumbar quadrant and pelvic regions. Bilateral ovarian cysts. Compared to the prior study, there is a marginal reduction in the fluid collection in the left lumbar quadrant. Stable other chronic findings as described. Interval development of bilateral ovarian cysts, recommend ultrasound of the pelvis for further evaluation. /Otilio
--- NOTE | 2025-01-19 01:13 | HMCIMG ---
EXAM: CR Chest, 1 view CLINICAL HISTORY: Abdominal pain. COMPARISON: Chest radiograph dated 12/17/2024. FINDINGS: The right side dual-lumen catheter tip overlies the superior cavoatrial junction. Questionable HAND SCRAPER shunt overlies the right side of the chest. The lungs show no infiltrates or other acute findings. No pleural effusion or pneumothorax. The cardiomediastinal silhouette is within normal limits. No acute osseous abnormality. No free air under the diaphragm. IMPRESSION: The right side dual-lumen catheter tip overlies the superior cavoatrial junction. Questionable HAND SCRAPER shunt overlies the right side of the chest. No acute cardiopulmonary process is evident. No free air under the diaphragm. Compared to the prior study, there is no significant interval change. /Groom
--- NOTE | 2025-01-19 01:14 | NUR ---
PT SITTING IN LOBBY IN FRONT OF TRIAGE 1 WITH FAMILY GOOD EVEN CHEST RISE AND FALL OBSERVED
[2025-01-19 01:16] LABS: ASPARTATE AMINOTRANSFERASE 12.0 U/L (10-37); CREATININE 1.2 mg/dL (0.5-1.0); GLOMERULAR FILTR. RATE CALC 57.0 mL/min (>90); GLUCOSE,RANDOM 103.0 mg/dL (70-105); SODIUM SERUM 132.0 mmol/L (136-145); TOTAL PROTEIN, SERUM 8.2 g/dL (6.0-8.3); UREA NITROGEN, BLOOD 11.0 mg/dL (7-18)
[2025-01-19 01:27] LABS: INR 1.04 (0.85-1.15)
--- NOTE | 2025-01-19 02:31 | NUR ---
TRIAGE EDIT TO ADD PMH
--- NOTE | 2025-01-19 02:33 | NUR ---
PLAN OF CARE REVIEWED WITH PT. PT VERBALIZED UNDERSTANDING WITH VERBAL TEACHBACK
[2025-01-19] MEDS ORDERED: MACR100 PO (02:42)
--- NOTE | 2025-01-19 02:42 | ERN ---
General Chief Complaint: Abdominal Pain Stated Complaint: ABD PAIN, N/V/D Time Seen by MD: 01:15 Time Seen by Midlevel: 01:15 Source: patient History of Present Illness Initial Comments 54-year-old female presents to the emergency department for evaluation of generalized abdominal pain with associated nausea and vomiting and diarrhea that started two days ago. Patient reports taking Dilaudid 4 mg earlier today with little to no relief. Allergies: Coded Allergies: No Known Drug Allergies (Verified Allergy, Unknown, 07/12/20) Home Meds Active Scripts Ondansetron (Ondansetron Odt) 4 Mg Tab.rapdis, 4 MG PO BID for vomiting for 5 Days, #10 TAB Prov:NATALIYA JURADO MD 12/29/24 Reported Medications Levetiracetam (Levetiracetam) 1,000 Mg Tablet, 1 TAB PO BID for SEIZURES 07/25/24 Linaclotide (Linzess) 290 Mcg Capsule, 1 CAP PO DAILY for 30 Days, #30 CAP 0 Refills 07/17/24 Past Medical History Past Medical History: Hepatitis, Other Medical History Other: SPINAL BIFIDA, SELF CATH, MDR URINE Past Surgical History: Other Surgical History Other: SHUNT TO HEAD Family History Family History: Negative Social History Social History: Negative, Lives with family, Other Female( History) History: Not Applicable : 0 ROS Dictation CONSTITUTIONAL: Negative except for HPI HEAD/FACE: Negative except for HPI EENT: Negative except for HPI RESPIRATORY: Negative except for HPI GASTROINTESTINAL/ABDOMINAL: Negative except for HPI GENITOURINARY: Negative except for HPI MUSCULOSKELETAL: Negative except for HPI INTEGUMENTARY: Negative except for HPI NEUROLOGICAL/PSYCH: Negative except for HPI HEMATOLOGIC/LYMPHATIC: Negative except for HPI All Systems Negative, Except as noted above. 13 point review of systems assessed and all negative except for above. Physical Exam Physical Exam Dictation Vital Signs reviewed General Appearance: Alert, oriented x 3, no acute distress, well developed, nourished. Head and Face: non-traumatic. Eyes: PERRL, pink conjunctivas, eyelid no trauma, anterior chamber with arcus senilis. Ears: Pinnas intact and no signs of trauma or erythema ear canals clear and no discharge TM no erythema Nose: No discharge, no bleeding. Oropharynx: Mouth normal, tongue pink, pharynx clear,no erythema, tonsils no exudates, no abscesses noted, mucous membrane moist Neck: Supple, non-tender, no thyromegaly, no masses, no JVD, no bruits Breast:Deferred Chest:No tenderness, no crepitus, no paradoxical movement, no retractions Lungs:Clear, well-ventilated, symmetric, no rales, no wheezing, no rhonchi, no stridor, good breath sounds bilaterally Heart: Regular rate, regular rhythm, no murmur, no gallops Vascular: no peripheral edema, Abdomen: Soft, positive bowel sounds, nondistended, no guarding, nontender, no rebound, no masses no hepatomegaly, no splenomegaly, no Jimenez's sign, no hernias. Rectal: Deferred Genital: Deferred Neurological: Normal speech, motor function intact, sensory function intact Musculoskeletal: Neck nontender, full range of motion, back nontender, full r hunter of motion, Extremities: nontender, full range of motion Skin: Color pink, dry, no turgor, no rash, no lacerations, no abrasions, no contusions. Lymphatic: Deferred Results Laboratory and Microbiology Lab and Micro Result Laboratory Tests Test 01/18/25 23:30 01/19/25 00:36 Urine Color YELLOW (YELLOW) Urine Appearance CLOUDY (CLEAR) H Urine pH 6.5 (5.0-8.0) Urine Specific [place] 1.010 (1.001-1.031) Urine Protein 50 mg/dL (NEGATIVE) H Urine Glucose (UA) NEGATIVE mg/dL (NEGATIVE) Urine Ketones NEGATIVE mg/dL (NEGATIVE) Urine Occult Blood +- (TRACE) (NEGATIVE) H Urine Nitrate NEGATIVE (NEGATIVE) Urine Bilirubin NEGATIVE mg/dL (NEGATIVE) Urine Urobilinogen 0.2 mg/dL (0.2-1.0) Urine Leukocyte Esterase 75 [place]ice[place]/uL (NEGATIVE) H Urine RBC 2-5 /HPF (0-1) H Urine WBC 6-10 /HPF (0-1) H Urine Squamous Epithelial Cells RARE /HPF (0-2) Urine Non-Squamous Epithelial Cells 2 /HPF (0-2) Urine Bacteria FEW /HPF (None Seen) Urine HCG, Qualitative NEGATIVE (NEGATIVE) White Blood Count 10.2 K/uL (4.8-10.8) Red Blood Count 4.94 MIL/uL (4.00-5.50) Hemoglobin 13.2 g/dL (12.0-16.0) Hematocrit 41.2 % (36-48) Mean Corpuscular Volume 83.4 fL (79-99) Mean Corpuscular Hemoglobin 26.7 pg (27.0-33.0) L Mean Corpuscular Hemoglobin Concent 32.0 g/dL (32.0-36.0) Red Cell Distribution Width 18.6 % (11.0-15.5) H Platelet Count 361 K/uL (130-400) Mean Platelet Volume 10.3 fL (7.5-10.5) Immature Granulocyte % (Auto) 1.9 % (0-1) H Neutrophils (%) (Auto) 77.9 % (40.0-77.0) H Lymphocytes (%) (Auto) 11.5 % (21.0-51.0) L Monocytes (%) (Auto) 6.5 % (3.0-13.0) Eosinophils (%) (Auto) 1.7 % (0.0-8.0) Basophils (%) (Auto) 0.5 % (0.0-5.0) Neutrophils # (Auto) 7.9 K/uL (1.8-7.7) H Lymphocytes # (Auto) 1.2 K/uL (1.0-4.8) Monocytes # (Auto) 0.7 K/uL (0.1-1.0) Eosinophils # (Auto) 0.17 K/uL (0.00-0.70) Basophils # (Auto) 0.05 K/uL (0.00-0.20) Absolute Immature Granulocyte (auto 0.19 K/uL (0-1) Nucleated Red Blood Cells 0.0 % (0.0-0.19) Prothrombin Time 11.0 SEC (9.6-11.6) Prothromb Time International Ratio 1.04 (0.85-1.15) Activated Partial Thromboplast Time 27.7 SEC (26.3-35.5) Sodium Level 132 mmol/L (136-145) L Potassium Level 2.7 mmol/L (3.5-5.1) *L Chloride Level 101 mmol/L (101-111) Carbon Dioxide Level 17 mmol/L (21-32) L Blood Urea Nitrogen 11 mg/dL (7-18) Creatinine 1.2 mg/dL (0.5-1.0) H Glomerular Filtration Rate Calc 57 mL/min (>90) Random Glucose 103 mg/dL (70-105) Lactic Acid Level 1.6 mmol/L (0.8-2.5) Total Calcium 9.2 mg/dL (8.5-10.1) Total Bilirubin 0.3 mg/dL (0.2-1.0) Direct Bilirubin 0.1 mg/dL (0.0-0.3) Aspartate Amino Transf (AST/SGOT) 12 U/L (10-37) Alanine Aminotransferase (ALT/SGPT) 19 U/L (12-78) Alkaline Phosphatase 183 U/L (50-136) H Troponin I High Sensitivity 4 ng/L (4-50) Total Protein 8.2 g/dL (6.0-8.3) Albumin 4.1 g/dL (3.5-5.0) Lipase 42 U/L (16-77) Procalcitonin < 0.05 ng/mL (0.05-0.5) L Labs Reviewed?: Yes MDM MDM: Differential diagnosis: Drug-seeking behavior, malingering, dehydration, electrolyte abnormality There are no social concerns with this patient. Prescription drug management Prescriptions will include: Macrobid Medical management and examination interpretation discussions were had by me with other qualified healthcare professionals as indicated for the patient's care. ED Course Orders Procedure Category Date Status Time 12 Lead Ekg Tracing- EKG 01/18/25 Logged Technical 23:16 Cbc With Differential LAB 01/18/25 Complete 23:16 Basic Metabolic Panel LAB 01/18/25 Complete 23:16 Hepatic Function Panel LAB 01/18/25 Complete 23:16 Lactic Acid LAB 01/18/25 Complete 23:16 Lipase LAB 01/18/25 Complete 23:16 ,Urine Test LAB 01/18/25 Complete 23:16 Procalcitonin LAB 01/18/25 Complete 23:16 Pt And Ptt LAB 01/18/25 Complete 23:16 Troponin I High LAB 01/18/25 Complete Sensitivity 23:16 Urinalysis LAB 01/18/25 Complete W/Microscopic 23:16 Chest 1vw RAD 01/18/25 Resulted 23:16 Ct Abdomen/Pelvis W/O CT 01/18/25 Resulted Contrast 23:16 Ondansetron 4mg Inj PHA 01/18/25 Complete (Zofran 4mg Inj) 23:30 Morphine 2mg Syg PHA 01/18/25 Complete (Morphine 2mg Syg) 23:30 Culture Urine HANK 01/18/25 In Process 23:40 Potassium Bicarb/Cit PHA 01/19/25 Complete Ac 25meq (K-Lyte Ta 02:00 Current Medications Medications (Trade) Dose Ordered Sig/Sandi Route PRN Reason Start Time Stop Time Status Last Admin Dose Admin Morphine Sulfate (morPHINE 2MG SYG) 2 mg ONCE ONCE IVP 01/18/25 23:30 01/18/25 23:31 DC Ondansetron HCl (zoFRAN 4MG INJ) 4 mg ONCE ONCE IVP 01/18/25 23:30 01/18/25 23:31 DC Potassium Bicarbonate (K-Lyte Tablet Eff 25 Meq Tablet.eff) 50 meq ONCE ONCE PO 01/19/25 02:00 01/19/25 02:09 DC Vital Signs Date Time Temp Pulse Resp B/P (MAP) Pulse Ox O2 Delivery O2 Flow Rate FiO2 01/18/25 23:04 98.4 98 18 137/86 98 Room Air DX & DISP Disposition: Discharge Departure Impression: Primary Impression: Hypokalemia Additional Impression: Urinary tract infection Condition: Stable Scripts Nitrofurantoin/Nitrofuran Mac (Macrobid) 100 Mg Cap 1 CAP PO BID for 7 Days, #14 CAP 0 Refills Prov: DAMION COLEMAN PAC 01/19/25 Referrals: FRANKI VILLAFANA MD (PCP) Time of Disposition: 02:41 I have reviewed the case, and I agree with, Diagnosis and Plan I performed the substantive portion of the visit. I have reviewed and personally made and approve the management plan that is documented in the note by myself or the CHASITY. I acknowledge for responsibility for the patient's management plan. DAMION COLEMAN PAC Jan 19, 2025 02:42
--- NOTE | 2025-01-19 06:46 | EKG ---
[facility] Test Date: 2025-01-18 Test Time: 23:24:09 Pat Name: OVIDIO DORSEY Department: ED Room: Gender: F Roll Plugger: [facility] : 1980 Requested By: EVY SHIPMAN Order Number: [id number] Reading MD: Basilia Mcgrath Measurements Intervals [place] Rate: 85 P: -16 ND: 111 QRS: 29 QRSD: 103 T: 22 QT: 387 QTc: 461 Interpretive Statements Sinus rhythm Compared to ECG 12/17/2024 01:20:57 T-wave abnormality no longer present Electronically Signed On 01-19-2025 12:11:41 CDT by Basilia Mcgrath Please click the below link to view image of tracing.
== END 2025-01-19 04:23 | disposition home or self-care (01) ==
LOC: EDH 23:03
DX: E87.6 Hypokalemia (principal); N39.0 Urinary tract infection, site not specified; R11.2 Nausea with vomiting, unspecified; R19.7 Diarrhea, unspecified
CPT/HCPCS: 99285; 74176; 71045; 80076; 84484; 80048; 83690; 85025; 85610; 85730; 87086 ×2; 87186; 83605; 81001; 81025; 36415; 93005; 84145; 96372 ×2; J2270; J0696

== ENCOUNTER 2025-02-19 01:56 | Emergency (ER) | payer MEDICAID ==
[~2025-02-19] VITALS: Ht 147.3 cm; Wt 63.0 kg
[~2025-02-19 01:56] MED LIST changes: +MACR100 PO
--- NOTE | 2025-02-19 02:11 | ERN ---
ED Note History of Present Illness Stated Complaint: C/O ABD PAIN W/N X V X DIARRHEA X 2 WKS Chief Complaint: Abdominal Pain Time Seen by MD: 02:01 Dictation: This is a 44-year-old female with known history of spina bifida and multiple medical problems presented to the emergency room with complaints of nausea vomitings abdominal pain and diarrhea going on for 2 weeks. She has a intractable nausea vomitings and she is quite frequently visiting the emergency room or hospitalized. She usually shuttles between [facility] and to [facility] with similar complaints. She stated that her abdomen issues have been extensively evaluated and she had multiple surgeries as a child due to spina bifida. She had an expiratory laparotomy with an intention to do adhesiolysis and resection of some of the small-bowel but that could not be accomplished per patient. She has nausea vomitings chronically. She has chronic pain syndrome and takes Dilaudid 4 mg q.8 hours daily and is under the care of Dr. Morgan, railroad car painter in [facility]. No hematemesis or melena. Abdominal pain is diffuse . No fever chills or rigors. Temperature 97.6 pulse 54 respirations 20 blood pressure 117/76 pulse ox is 100% on room air Her other chronic medical problems include spina bifida, chronic seizures on Keppra 1000 mg p.o. b.i.d., endometriosis, [employer] shunt and abdominal issues with the chronic nausea vomitings and abdominal pain with history of multiple abdominal surgeries as a baby. Allergies: Coded Allergies: No Known Drug Allergies (Verified Allergy, Unknown, 07/12/20) Home Meds Active Scripts Nitrofurantoin/Nitrofuran Mac (Macrobid) 100 Mg Cap, 1 CAP PO BID for 7 Days, #14 CAP 0 Refills Prov:DAMION COLEMAN 01/19/25 Ondansetron (Ondansetron Odt) 4 Mg Tab.rapdis, 4 MG PO BID for vomiting for 5 Days, #10 TAB Prov:NATALIYA JURADO MD 12/29/24 Reported Medications Levetiracetam (Levetiracetam) 1,000 Mg Tablet, 1 TAB PO BID for SEIZURES 07/25/24 Linaclotide (Linzess) 290 Mcg Capsule, 1 CAP PO DAILY for 30 Days, #30 CAP 0 Refills 07/17/24 Past Medical History Past Medical History: Hepatitis, Other Additional Past Medical Hx: SPINAL BIFIDA, SELF CATH, MDR URINE Surgical History: Other Surgical History Other: SHUNT TO HEAD Family History: Negative Social History: Negative, Lives with family, Other History: Not Applicable : 0 RN Note Reviewed/Agreed w/PFSH: Yes Review of System Dictation Constitutional: Negative for fever,chills, and weight loss Eyes: Negative for injury, pain,redness, and discharge ENT: Negative for injury,pain or swelling Cardiovascular: Negative for chest pain, palpitations, and edema Respiratory: Negative for shortness of breath, cough, and wheezing, Abdomen/GI: Positive for abdominal pain, nausea, vomiting, diarrhea, Back: Negative for injury and pain : Negative for injury, bleeding and discharge MS/Extremity: Negative for injury and deformity Skin: Negative for rash, and discoloration Neuro: Negative for headache, weakness, numbness, tingling, and seizure Psych: Negative for suicide ideation, homicidal ideation, and hallucinations Initial Vital Sign VS Vital Signs Date Time Temp Pulse Resp B/P (MAP) Pulse Ox O2 Delivery O2 Flow Rate FiO2 02/19/25 01:59 97.9 81 20 126/79 98 Room Air 02/19/25 02:34 0 21 Physical Exam Dictation General: awake, alert, NAD chronically ill-appearing Head/Face: Normocephalic, atraumatic Eyes: PERRL, EOMI, vision at baseline ENT: oral cavity clear, TMs clear, no signs of infection Neck: Trachea midline, supple, no nuchal rigidity Cardiovascular: RRR, normal S1/S2, No MRGs, no JVD Respiratory: CTAB, no respiratory distress, No rales or wheezes Abdomen: Soft, non-tender, non-distended, normal bowel sounds, no guarding or rebound. Multiple well-healed scars from previous surgery Skin: Warm, dry, normal turgor, no rash MS/Extremity: Pulses equal, no cyanosis, neurovascular intact, FROM Neuro: COAx4, GCS 15, strength 5/5, CN 2-12 intact, normal cerebellar exam, leg muscle atrophy Psych: Normal behavior, mood, and affect normal Extremities-trace edema without any palpable cords, Homans sign is negative Results (Laboratory/Radiology) Laboratory/Radiology Laboratory Tests Test 02/19/25 02:14 02/19/25 02:30 White Blood Count 8.2 K/uL (4.8-10.8) Red Blood Count 4.45 MIL/uL (4.00-5.50) Hemoglobin 11.8 g/dL (12.0-16.0) L Hematocrit 36.6 % (36-48) Mean Corpuscular Volume 82.2 fL (79-99) Mean Corpuscular Hemoglobin 26.5 pg (27.0-33.0) L Mean Corpuscular Hemoglobin Concent 32.2 g/dL (32.0-36.0) Red Cell Distribution Width 17.1 % (11.0-15.5) H Platelet Count 299 K/uL (130-400) Mean Platelet Volume 9.5 fL (7.5-10.5) Immature Granulocyte % (Auto) 0.6 % (0-1) Neutrophils (%) (Auto) 69.4 % (40.0-77.0) Lymphocytes (%) (Auto) 23.6 % (21.0-51.0) Monocytes (%) (Auto) 5.0 % (3.0-13.0) Eosinophils (%) (Auto) 1.2 % (0.0-8.0) Basophils (%) (Auto) 0.2 % (0.0-5.0) Neutrophils # (Auto) 5.7 K/uL (1.8-7.7) Lymphocytes # (Auto) 1.9 K/uL (1.0-4.8) Monocytes # (Auto) 0.4 K/uL (0.1-1.0) Eosinophils # (Auto) 0.10 K/uL (0.00-0.70) Basophils # (Auto) 0.02 K/uL (0.00-0.20) Absolute Immature Granulocyte (auto 0.05 K/uL (0-1) Nucleated Red Blood Cells 0.0 % (0.0-0.19) Sodium Level 131 mmol/L (136-145) L Potassium Level 2.8 mmol/L (3.5-5.1) *L Chloride Level 96 mmol/L (101-111) L Carbon Dioxide Level 23 mmol/L (21-32) Blood Urea Nitrogen 14 mg/dL (7-18) Creatinine 1.2 mg/dL (0.5-1.0) H Glomerular Filtration Rate Calc 57 mL/min (>90) Random Glucose 103 mg/dL (70-105) Total Calcium 9.2 mg/dL (8.5-10.1) Total Creatine Kinase 95 U/L (21-232) # Lipase 28 U/L (16-77) Urine Color Light-Yellow (YELLOW) Urine Appearance CLEAR (CLEAR) Urine pH 6.5 (5.0-8.0) Urine Specific [place] 1.005 (1.001-1.031) Urine Protein NEGATIVE mg/dL (NEGATIVE) Urine Glucose (UA) NEGATIVE mg/dL (NEGATIVE) Urine Ketones NEGATIVE mg/dL (NEGATIVE) Urine Occult Blood NEGATIVE (NEGATIVE) Urine Nitrate NEGATIVE (NEGATIVE) Urine Bilirubin NEGATIVE mg/dL (NEGATIVE) Urine Urobilinogen 0.2 mg/dL (0.2-1.0) Urine Leukocyte Esterase NEGATIVE Eliceo/uL Urine HCG, Qualitative NEGATIVE (NEGATIVE) Labs Reviewed?: Yes ED Course ED Course Orders Procedure Category Date Status Time Cbc With Differential LAB 02/19/25 Complete 02:08 ,Urine Test LAB 02/19/25 Complete 02:08 Urinalysis Profile LAB 02/19/25 Complete 02:08 Lactated Ringers PHA 02/19/25 Complete 1000ml (Lactated 02:30 Ketorolac PHA 02/19/25 Complete Tromethamine 30mg/Ml 02:30 Ondansetron 4mg Inj PHA 02/19/25 Complete (Zofran 4mg Inj) 02:30 Famotidine 20mg Vial PHA 02/19/25 Complete (Pepcid 20mg Vial) 02:30 Creatine Kinase, Total LAB 02/19/25 Complete 02:08 Lipase LAB 02/19/25 Complete 02:08 Basic Metabolic Panel LAB 02/19/25 Complete 02:08 12 Lead Ekg Tracing- EKG 02/19/25 Logged Technical 02:08 Potassium Bicarb/Cit PHA 02/19/25 Complete Ac 25meq (K-Lyte Ta 03:00 Hydromorphone 1 Mg PHA 02/19/25 Transmitted Inj (Dilaudid 1mg Inj 04:00 Current Medications Medications (Trade) Dose Ordered Sig/Sandi Route PRN Reason Start Time Stop Time Status Last Admin Dose Admin Famotidine (Pepcid 20mg Vial) 20 mg ONCE ONCE IV 02/19/25 02:30 02/19/25 02:31 DC 02/19/25 02:23 Ketorolac Tromethamine (toRADol) 30 mg ONCE ONCE IVP 02/19/25 02:30 02/19/25 02:31 DC 02/19/25 02:23 Lactated Ringer's 1,000 ml @ 0 mls/hr ONCE ONCE IV 02/19/25 02:30 02/19/25 02:31 DC Ondansetron HCl (zoFRAN 4MG INJ) 4 mg ONCE ONCE IVP 02/19/25 02:30 02/19/25 02:31 DC 02/19/25 02:23 Potassium Bicarbonate (K-Lyte Tablet Eff 25 Meq Tablet.eff) 50 meq ONCE ONCE PO 02/19/25 03:00 02/19/25 03:01 DC 02/19/25 03:06 Vital Signs Date Time Temp Pulse Resp B/P (MAP) Pulse Ox O2 Delivery O2 Flow Rate FiO2 02/19/25 02:34 97.9 86 16 105/73 100 Room Air* 0 21 02/19/25 01:59 97.9 81 20 126/79 98 Room Air Medical Decision Making MDM Differential diagnosis: Chronic abdominal pain, multiple previous abdominal surgeries, opioid dependence and abuse, gastroenteritis, withdrawal This is a 44-year-old female with known history of spina bifida and multiple medical problems presented to the emergency room with complaints of nausea vomitings abdominal pain and diarrhea going on for 2 weeks. She has a intractable nausea vomitings and she is quite frequently visiting the emergency room or hospitalized. She usually shuttles between [facility] and to [facility] with similar complaints. She stated that her abdomen issues have been extensively evaluated and she had multiple surgeries as a child due to spina bifida. She had an expiratory laparotomy with an intention to do adhesiolysis and resection of some of the small-bowel but that could not be accomplished per patient. She has nausea vomitings chronically. She has chronic pain syndrome and takes Dilaudid 4 mg q.8 hours daily and is under the care of Dr. Morgan, railroad car painter in [facility]. No hematemesis or melena. Abdominal pain is diffuse . No fever chills or rigors. Temperature 97.6 pulse 54 respirations 20 blood pressure 117/76 pulse ox is 100% on room air Her other chronic medical problems include spina bifida, chronic seizures on Keppra 1000 mg p.o. b.i.d., endometriosis, [employer] shunt and abdominal issues with the chronic nausea vomitings and abdominal pain with history of multiple abdominal surgeries as a baby. 2:53 a.m. labs reviewed CBC is with a normal limits. BNP 7 is significant for a sodium of 131 chloride 96 potassium 2.8 BUN and creatinine are 14 and 1.2. Lipase is 28. Urinalysis is unremarkable. I updated the patient on the labs she was more worried about wanting the pain medicine. Rationale: Tests considered and ordered secondary to shared decision making include: Previous outside records reviewed: Old ER visits. Risk of complication and/or morbidity or mortality of patient management: None Medications-Per medication reconciliation Need for hospitalization: Patient does not meet criteria for hospitalization. Need for emergency major/minor surgery: No There are no social concerns with this patient. Prescription drug management Prescriptions will include symptomatic care Patient's prior external medical records from other ER visits were reviewed by me as indicated. Prior testing and results from previous visits were reviewed. Prior tests were taken into account with medical decision making and resource utilization, independent historian/historians were used to obtain complete medical history. I independently interpreted the test that were performed, results were reviewed by me and considered findings on radiology if ordered. Medical management and examination interpretation discussions were had by me with other qualified healthcare professionals as indicated for the patient's care. Problem List Problem List: (1) Spina bifida (2) Nausea vomiting and diarrhea (3) Chronic abdominal pain (4) Drug-seeking behavior (5) Indwelling catheter present on admission (6) Dehydration (7) Hypokalemia (8) Opioid dependence DX & DISP Disposition: Discharge Departure Impression: Primary Impression: Chronic abdominal pain Additional Impressions: Nausea vomiting and diarrhea, Spina bifida, Hypokalemia, Chronic pain syndrome, Dehydration, Opioid dependence, Drug- seeking behavior, Indwelling catheter present on admission Condition: Stable Additional Instructions: Patient and the caregiver have been informed of all the diagnostic tests and the imaging conducted during the today's visit to the emergency room and has verbalized understanding of the results I have personally reviewed and interpreted all diagnostic exams performed here in the ER today as well as the vital signs documented by the nursing staff. The patient is now being discharged to home and should follow up with the primary care physician or the specialist as directed by the ER staff. Extensive counseling on opioid over use and abuse and adverse effects and deleterious effects including respiratory depression cardiac arrest and . I also explained to her that she needs to be followed by Dr. Morgan only for all the pain management and prescriptions. Emergency room can not manage chronic pain. She verbalized full understanding Referrals: FRANKI VILLAFANA MD (PCP) HUMERA FARRELL MD Feb 19, 2025 02:11
[2025-02-19] MEDS: FAMOTIDINE 20MG VIAL IV ONE (02:23)
[2025-02-19] MEDS: LACTATED RINGERS 1000ML 1,000 ML IV ONE (02:23)
[2025-02-19 02:24] LABS: IMMATURE GRANULOCYTE ABSOLUTE 0.05 K/uL (0-1); NUCLEATED RED BLOOD CELLS 0.0 % (0.0-0.19); PLATELET COUNT (AUTO) 299 K/uL (130-400); RED BLOOD CELL COUNT(AUTO) 4.45 MIL/uL (4.00-5.50); RED CELL DISTRIBUTION WIDTH 17.1 % (11.0-15.5); WHITE BLOOD COUNT (AUTO) 8.2 K/uL (4.8-10.8)
[2025-02-19 02:37] LABS: CREATINE KINASE, TOTAL 95.0 U/L (21-232); CREATININE 1.2 mg/dL (0.5-1.0); GLOMERULAR FILTR. RATE CALC 57.0 mL/min (>90); GLUCOSE,RANDOM 103.0 mg/dL (70-105); SODIUM SERUM 131.0 mmol/L (136-145); UREA NITROGEN, BLOOD 14.0 mg/dL (7-18)
[2025-02-19 02:48] LABS: APPEARANCE,URINE CLEAR (CLEAR); GLUCOSE, URINE (UA) NEGATIVE (NEGATIVE); LEUKOCYTE ESTERASE ,URINE NEGATIVE Leu/uL (NEGATIVE); NITRATE,URINE NEGATIVE (NEGATIVE); OCCULT BLOOD,URINE NEGATIVE (NEGATIVE)
[2025-02-19 02:50] LABS: ADD UA MICROSCOPIC NO
[2025-02-19 02:51] LABS: HCG,QUALITATIVE URINE NEGATIVE (NEGATIVE)
[2025-02-19 04:09] VITALS: BP 99/65; PULSE 82; RESP 16; TEMP 98.2; O2SAT 98
--- NOTE | 2025-02-19 05:30 | EKG ---
[facility] Test Date: 2025-02-19 Test Time: 02:23:35 Pat Name: OVIDIO DORSEY Department: ED Room: Gender: F Client Associate: [id number] : 1980 Requested By: HUMERA FARRELL Order Number: [id number] Reading MD: Measurements Intervals [place] Rate: 80 P: 40 CA: 138 QRS: 9 QRSD: 89 T: 14 QT: 429 QTc: 495 Interpretive Statements Sinus rhythm Low voltage, precordial leads No previous ECG available for comparison Please click the below link to view image of tracing.
== END 2025-02-19 04:11 | disposition home or self-care (01) ==
LOC: EDH 01:56
DX: G89.4 Chronic pain syndrome (principal); R10.9 Unspecified abdominal pain; R11.2 Nausea with vomiting, unspecified; R19.7 Diarrhea, unspecified; Q05.9 Spina bifida, unspecified; E87.6 Hypokalemia; E86.0 Dehydration; F11.20 Opioid dependence, uncomplicated; Z76.5 Malingerer [conscious simulation]; Z99.11 Dependence on respirator [ventilator] status
CPT/HCPCS: 99284; 96374; 96375; 82550; 80048; 83690; 85025; 81003; 81025; 36415; 93005; J1885; J7120; J1308; J1171; J2405